=== PATIENT | female | born 1955 | race Caucasian/White ===

== ENCOUNTER 2018-08-24 09:40 | Outpatient (CLI) | payer BC, SELFPAY ==
[2018-08-24 13:28] LABS: TSH (W/Ref FT4) 3.92 uIU/mL (0.358-3.74)
[2018-08-24 13:44] LABS: FREE T4 1.13 ng/dL (0.76-1.46)
== END 2018-08-24 10:00 ==
PROVIDERS: PCP Family Medicine; Visit Provider Family Medicine
DX: E03.9 Hypothyroidism, unspecified (principal)
CPT/HCPCS: 36415; 84439; 84443

== ENCOUNTER 2018-11-03 02:43 | Outpatient (CLI) | payer BC, SELFPAY ==
[2018-11-03 11:03] LABS: Abs Immature Grans 0.01 k/cumm (0.0-0.09); Absolute Basophil Count 0.04 k/cumm (0.0-0.2); Absolute Eosinophil Count 0.31 k/cumm (0.0-0.7); Absolute Lymphocyte Count 1.35 k/cumm (1.2-3.4); Absolute Monocyte Count 0.39 k/cumm (0.11-0.7); Absolute Neutrophil Count 2.73 k/cumm (1.2-6.7); Basophils % 0.8; Eosinophils % 6.4; HCT 40.8 % (36.0-46.0); Immature Grans % 0.2; Mean Corp. HGB Concentration 31.9 g/dL (32.0-36.0); Mean Corpuscular Hemoglobin 30.3 pg (27.0-33.0); Mean Corpuscular Volume 95.1 fL (80-95); Mean Platelet Volume 10.3 fL (8.0-11.0); Monocytes % 8.1; Neutrophils % 56.5; Platelet Count 191 x1000/uL (130-400); RBC 4.29 m/cumm (4.00-5.20); White Blood Cell Count 4.83 k/cumm (4.4-10.8)
[2018-11-03 11:31] LABS: ALT 23 U/L (12-78); AST 14 U/L (15-37); Albumin 4.1 g/dL (3.4-5.0); Alkaline Phosphatase 71 U/L (46-116); Anion Gap 10.7 mmol/L (3-11); BUN 18 mg/dL (7-18); Bilirubin, Total 0.4 mg/dL (0.2-1.0); C-Reactive Protein 0.06 mg/dL (0.0-0.3); CO2 29.3 mmol/L (21.0-32.0); Calcium 8.9 mg/dL (8.5-10.1); Chloride 104 mmol/L (98-107); Glucose 77 mg/dL (70-100); Potassium 3.5 mmol/L (3.5-5.1); Sodium 144 mmol/L (136-145); Total Protein 6.9 g/dL (6.4-8.2)
[2018-11-03 11:40] LABS: TSH 2.51 uIU/mL (0.358-3.74)
== END 2018-11-03 03:03 ==
PROVIDERS: PCP Family Medicine; Visit Provider Internal Medicine Gastroenterology
DX: K51.519 Left sided colitis with unspecified complications (principal); E03.9 Hypothyroidism, unspecified
CPT/HCPCS: 36415; 80053; 84443; 85025; 86140

== ENCOUNTER 2018-11-04 13:44 | Outpatient (REF) | payer BC, SELFPAY ==
[2018-11-09 19:46] LABS: Calprotectin 28.5 mcg/g
== END 2018-11-04 14:04 ==
LOC: LBN 13:44
PROVIDERS: PCP Family Medicine; Visit Provider Internal Medicine Gastroenterology
DX: K51.519 Left sided colitis with unspecified complications (principal)
CPT/HCPCS: 83993

== ENCOUNTER 2019-02-27 10:30 | Outpatient (REF) | payer BC, SELFPAY ==
--- NOTE | 2019-02-27 10:00 | PAPFT_PTH ---
PATIENT: Tatyana Skelton LOC: [facility] U#:[id number] AGE/SX: 64/F ROOM: RE02/27/[address]: Bang Heath MD : 1955 BED: DIS: 02/27/2019 SPEC #: [id number] RECD: 02/27/19 13:11 STATUS: HILARIO REAyse #: [id number] TERESITA: 02/27/19 10:[address]: Bang Heath DEPT: [facility] Cytology RECD BY: Fidelina Solano Tissues: 1 - CX/ENDOCX FOR PAP SMEARS Procedures: PAP THIN PREP/UVM Screening Comments: [id number] (UNSATISFACTORY FOR EVALUATION)
== END 2019-02-27 10:50 ==
LOC: LBN 10:30
PROVIDERS: PCP Family Medicine; Visit Provider Family Medicine
DX: Z12.4 Encounter for screening for malignant neoplasm of cervix (principal)
CPT/HCPCS: 88142; 87624

== ENCOUNTER 2019-05-08 10:55 | Outpatient (REF) | payer BC, SELFPAY ==
--- NOTE | 2019-05-08 09:50 | PAPFT_PTH ---
PATIENT: Tatyana Skelton LOC: [facility] U#:[id number] AGE/SX: 64/F ROOM: RE05/08/[address]: Bang Heath MD : 1955 BED: DIS: 05/08/2019 SPEC #: [id number] RECD: 05/08/19 13:00 STATUS: HILARIO VICTOR #: [id number] TERESITA: 05/08/19 09:[address]: Bang Heath DEPT: [facility] Cytology RECD BY: Fidelina Solano Tissues: 1 - CX/ENDOCX FOR PAP SMEARS Procedures: PAP THIN PREP/UVM Screening Comments: [id number] (UNSATISFACTORY FOR EVALUATION)
== END 2019-05-08 11:15 ==
LOC: LBN 10:55
PROVIDERS: PCP Family Medicine; Visit Provider Family Medicine
DX: Z12.4 Encounter for screening for malignant neoplasm of cervix (principal); Z11.51 Encounter for screening for human papillomavirus (HPV)
CPT/HCPCS: 88142; 87624

== ENCOUNTER 2019-09-11 00:17 | Outpatient (CLI) | payer BC, SELFPAY ==
--- NOTE | 2019-09-11 06:56 | DI.NM_ITS ---
APPROVED REPORT Exam: Exercise Treadmill Patient Location: Out-Patient Stress Nurse: Kalyani Tom RN Indications: Episodes of nausea and weakness Medical History Medical History: Diabetic ??? Insulin, Obesity(hx of), HTN, Hyperlipidemia, Weakness Cardiac Medications: Atenolol, Losartan Allergies: Shellfish, lactose, lisinopril Cardiac Risk Factors: Hyperlipidemia, HTN, Diabetes (insulin), FHX of CAD Pretest Chest Pain Characteristics: No chest pain, episodes of nausea and weakness Exercise History: Physically active Stress Test Details Test: Exercise stress testing was performed using a Butch protocol. Nuclear Acquisition: Rest Tc-99m/Stress Tc-99m 1 day Rest Isotope: Tc-99m Tetrofosmin. Dose: 11 Date: 09/11/2019 Injection Time: 0940 Stress Isotope: Tc-99m Tetrofosmin. Dose: 34.5 Date: 09/11/2019 Injection Time: 1148 HR Resting HR: 63 bpm Max Heart Rate (APMHR): 157 bpm Target HR (85% APMHR): 133 bpm Max HR Achieved: 158 bpm % of APMHR: 100 Recovery HR: 87 bpm HR response to stress: Normal HR response to stress BP Resting BP: 130/80 mmHg Max BP: 180/84 mmHg Recovery BP: 130/78 mmHg BP response to stress: Normal blood pressure response to stress. ECG Resting ECG: Sinus Rhythm, Anterolateral [place] pattern- old Stress ECG: Sinus Tachycardia ST Change: Upsloping ST depression Maximum ST Deviation: 2 mm Arrhythmia: None Recovery ECG: Sinus Rhythm Recovery ST Change: Horizontal ST depression, Upsloping ST depression Recovery Arrhythmia: VPC's x2 only Clinical Reason for Termination: Maximal effort Exercise duration: 6.5 min sec Highest Stage Achieved: Stage 2: 2.5 mph at 12% grade. Exercise capacity: 8.43 METs Functional Capacity: Average Stress ECG Conclusion 1. The patient demonstrated reasonable exercise tolerance (8.4 METS) 2. This was a maximal effort stress test 3. There were [address] depressions in the inferior leads during exercise. These depressions resolved during recovery Test Summary supine 63 130/80 standing 76 130/90 1 3 10 1.7 119 4.6 150/96 99 2 3 12 2.5 146 7 158/92 98 3 0:54 14 3.4 158 10.2 97 1 min recovery 150 180/84 3 min recovery 87 160/80 6 min recovery 87 130/78 MPI Conclusion There is no evidence of ischemia on imaging portion of this exam. Wall motion was normal. There are discordant findings between EKG and imaging portion of this exam. The Tamayo Score (-4) estimates an annual cardiovascular mortality of 2% and a five year survival of 89 % Using the Tamayo Score there is an intermediate probability of angiographic coronary disease.
== END 2019-09-11 00:37 ==
PROVIDERS: PCP Family Medicine; Visit Provider Family Medicine
DX: R94.31 Abnormal electrocardiogram [ECG] [EKG] (principal); R11.0 Nausea; R53.1 Weakness; E78.5 Hyperlipidemia, unspecified; I10 Essential (primary) hypertension; E11.9 Type 2 diabetes mellitus without complications; Z79.4 Long term (current) use of insulin; Z82.49 Family history of ischemic heart disease and other diseases of the circulatory system
CPT/HCPCS: 78452; 93017

== ENCOUNTER 2019-10-03 13:55 | Outpatient (REF) | payer BC, SELFPAY ==
--- NOTE | 2019-10-03 11:30 | PAPFT_PTH ---
PATIENT: Tatyana Skelton LOC: [facility] U#:[id number] AGE/SX: 64/F ROOM: RE10/03/[address]: Liu Zarate MD : 1955 BED: DIS: 10/03/2019 SPEC #: [id number] RECD: 10/03/19 18:34 STATUS: HILARIO REAyse #: [id number] TERESITA: 10/03/19 11:[address]: Liu Zarate DEPT: [facility] Cytology RECD BY: Fidelina Solano ENTERED: 10/03/19 18:35 SP TYPE: PAPFT OTHR DR: Bang Heath MD Tissues: 1 - CX/ENDOCX FOR PAP SMEARS Procedures: PAP THIN PREP/UVM Screening HPV DNA PROBE Comments: [id number]
== END 2019-10-03 14:15 ==
LOC: LBN 13:55
PROVIDERS: PCP Family Medicine; Visit Provider Obstetrics & Gynecology
DX: Z12.4 Encounter for screening for malignant neoplasm of cervix (principal); Z11.51 Encounter for screening for human papillomavirus (HPV)
CPT/HCPCS: 88142; 87624

== ENCOUNTER 2019-10-13 09:03 | Outpatient (CLI) | payer BC, SELFPAY ==
[2019-10-13 11:46] LABS: TSH 0.33 uIU/mL (0.36-3.74)
== END 2019-10-13 09:23 ==
PROVIDERS: Internal Medicine Endocrinology, Diabetes & Metabolism; PCP Family Medicine; Visit Provider Family Medicine
DX: E03.8 Other specified hypothyroidism (principal); E06.3 Autoimmune thyroiditis
CPT/HCPCS: 36415; 84443

== ENCOUNTER 2019-10-24 11:55 | Outpatient (REF) | payer BC, SELFPAY | END 2019-10-24 12:15 | LOC: LBN 11:55 | PROVIDERS: PCP Family Medicine; Visit Provider Obstetrics & Gynecology | DX: N90.89 Other specified noninflammatory disorders of vulva and perineum (principal) | CPT/HCPCS: 87480; 87510; 87660 ==

== ENCOUNTER 2020-04-05 02:32 | Outpatient (CLI) | payer BC, SELFPAY ==
[2020-04-05 09:21] LABS: Hemoglobin A1C 6.2 % (3.8-5.6)
[2020-04-05 09:23] LABS: LDL CHOLESTEROL 47 mg/dL (<100); TSH 0.21 uIU/mL (0.36-3.74)
== END 2020-04-05 02:52 ==
PROVIDERS: PCP Family Medicine; Visit Provider Internal Medicine Endocrinology, Diabetes & Metabolism
DX: E10.9 Type 1 diabetes mellitus without complications (principal); E03.8 Other specified hypothyroidism; E06.3 Autoimmune thyroiditis
CPT/HCPCS: 36415; 83721; 83036; 84443

== ENCOUNTER 2020-11-13 00:45 | Outpatient (CLI) | payer BC, SELFPAY ==
--- NOTE | 2020-11-13 09:00 | DI.MAMMO_ITS ---
EXAM: MG MAMMO SCREENING CLINICAL HISTORY: screening. TECHNIQUE: Bilateral full field digital CC and MLO mammographic images were obtained with 3D tomosyn thesis and utilizing computer aided detection (CAD). COMPARISON: Prior mammograms dating back to 2011, the most recent being February 2018. FINDINGS: No new significant radiograph findings in left breast. In the right breast there is a subtle nodular density seen centrally located 5 centimetres in from th e nipple on 3D MLO imaging. Nodule measures approximately 8 x 6 millimeters. There are few tiny shayla rocalcifications in this region. There is no significant architectural distortion nor skin thickenin g-retraction. IMPRESSION: Moderately dense fibroglandular tissue. No radiographic evidence of malignancy in the left breast. Right breast nodule. Spot compression CC and MLO views recommended. Also ultrasound. BI-RADS Category 0 - Assessment Incomplete: Need additional imaging evaluation Breast Density - Category C - Heterogeneously dense Breast density Category C or D implies that the patient has dense breast tissue. Dense breast tissue can make it harder to find cancer on a mammogram. Dense breast tissue is also associated with an incr eased risk of breast cancer. This information about the result of the mammogram report was provided to the patient to raise their awareness. Use this report when you speak with the patient about their risks for breast cancer, which includes their family history. At that time, you may recommend additional screening tests (Ultrasoun d or MRI) as these tests may add significant information. A negative radiographic report should not delay biopsy if a dominant or clinically suspicious mass is present. Up to ten percent of cancers are not identified on mammography. A negative report may reinforce clinical impression. Adenosis and dense breasts may obscure an underlying neoplasm. False positive reports average 6 to 10%. Patient will receive a letter notifying them of these results.
== END 2020-11-13 01:05 ==
PROVIDERS: PCP Family Medicine; Visit Provider Nurse Practitioner Family
DX: Z12.31 Encounter for screening mammogram for malignant neoplasm of breast (principal); N63.10 Unspecified lump in the right breast, unspecified quadrant
CPT/HCPCS: 77063; 77067

== ENCOUNTER 2020-11-19 01:14 | Outpatient (CLI) | payer BC, SELFPAY ==
--- NOTE | 2020-11-19 | DI.US_ITS ---
EXAM: MG MAMMO SCREEN CALL BACK UNI and U/S breast RT limited CLINICAL HISTORY: F/U MAMMO, RT BREAST NODULE. TECHNIQUE: Craniocaudal and mediolateral oblique Full Field Digital Mammography views of the right b reast with Computer Aided Diagnosis followed by Tomosynthesis and right breast ultrasound. COMPARISON: Priors available for comparison. FINDINGS: Mammography/Tomosynthesis: Masses/Architectural Distortion: None seen. Microcalcifictions: No suspicious pleomorphic-type are seen. Skin Thickening/Nipple Retraction: None. Right breast US: Echotexture: Normal appearance of the glandular tissue. Shadowing: No suspicious foci. Cyst: None. Solid lesions: There is a hypoechoic mass seen at the 10 o'clock position of the right breast 5 cm fr om the nipple. The mass has ill-defined borders and internal vascularity is observed. The mass bernabe ures 1.1 cm AP 1.9 cm transverse. No definite posterior acoustic enhancement or shadowing is seen. Ductal dilation: None. IMPRESSION: 1. 1.1 x 1.9 cm right breast mass at the 10 o'clock position 5 cm from the nipple. 2. Given its appearance sonographically, biopsy is recommended. 3. The findings were discussed with the patient and the primary care provider team on the date of the examination. BI-RADS Category 4 - Suspicious Abnormality: Biopsy should be considered Breast Density - Category C - Heterogeneously dense The mammogram demonstrates the patient's breast tissue is dense. Dense breast tissue is very common a nd is not abnormal but dense breast tissue can make it harder to find cancer on a mammogram. Also, de nse breast tissue may increase their breast cancer risk. This information [facility] was provided to the patient to raise their awareness. Use this report when you speak wi th the patient about their risks for breast cancer, which includes their family history. At that time , you may recommend for more screening tests (Ultrasound or MRI) as they might be useful based on the ir risk. A negative radiographic report should not delay biopsy if a dominant or clinically suspicious mass is present. Up to ten percent of cancers are not identified on mammography. A negative report may reinforce clinical impression. Adenosis and dense breasts may obscure an underlying neoplasm. False positive reports average 6 to 10%. Patient will receive a letter notifying them of these results.
== END 2020-11-19 01:34 ==
PROVIDERS: PCP Family Medicine; Visit Provider Nurse Practitioner Family
DX: Z12.31 Encounter for screening mammogram for malignant neoplasm of breast (principal); R92.8 Other abnormal and inconclusive findings on diagnostic imaging of breast; N63.11 Unspecified lump in the right breast, upper outer quadrant
CPT/HCPCS: 76642; 77063; 77067

== ENCOUNTER 2020-11-27 01:47 | Outpatient (CLI) | payer BC, SELFPAY ==
--- NOTE | 2020-11-27 | DI.US_ITS ---
EXAM: US NEEDLE LOCAL BREAST WO RAD CLINICAL HISTORY: RT BREAST MASS, ULTRASOUND GUIDED CORE BREAST BIOPSY TECHNIQUE: Ultrasound performed using standard protocol. COMPARISON: US US BREAST RT LIMITED from 11/19/2020 FINDINGS: Ultrasound guidance was provided for biopsy right breast mass in the 10 o'clock position, reportedly performed by Dr. Gutierrez. Please see Dr. Gutierrez's procedure note. IMPRESSION: DATA REPOSITORY:
--- NOTE | 2020-11-27 10:35 | BREAST_PTH ---
PATIENT: Tatyana Skelton LOC: [facility] U#:[id number] AGE/SX: 65/F ROOM: RE11/27/[address]: Vidya Epps MD : 1955 BED: DIS: 11/27/2020 SPEC #: [id number] RECD: 11/27/20 12:14 STATUS: HILARIO REQ #: [id number] TERESITA: 11/27/20 10:[address]: Vidya Epps DEPT: Surgical Specimen RECD BY: Fidelina Solano ENTERED: 11/27/20 12:16 SP TYPE: Breast OTHR DR: Bang Heath MD Tissues: 1 - BREAST BX NEEDLE 2 - BREAST BX NEEDLE 3 - BREAST BX NEEDLE Procedures: GROSS AND MICRO LEVEL 4 IMMUNOPEROXIDASE STAIN Her-2 Dual MADIHA Comments: [id number]
--- NOTE | 2020-11-27 11:59 | W.PM.OP ---
Date of service: 11/27/20 Time of Service: 10:00 Operative Note Operative Note DATE OF PROCEDURE: 11/27/20 PRE-OP DIAGNOSIS: Abnormal right breast ultrasounds POST-OP DIAGNOSIS: same PROCEDURE: US guided needle core biopsy right breast and clip placement SURGEON: Yesy Gutierrez ANESTHESIA: local Indications: This 65 year old woman presented for routine screening mammogram. A possible density was seen in the right breast and confirmed on US at the 10:00 location, 5cm from the nipple, 1.9cm in size. The patient has not noted a mass. Procedure Description: I advised needle core biopsy of the right breast mass. The risks of infection, bleeding and potential need for further biopsy if the results are discordant were discussed. She agrees to proceed. The mass is visualized in the previously described location by the US tech. There is a palpable fullness here. The skin is cleaned with Chloraprep. The skin is infiltrated with 1% lidocaine and a small incision made medial to the lesion with an 11 blade. The 14 gauge needle core biopsy device is used to take several pieces of the mass which are place in formalin. This is done with US imaging showing the biopsy needle passing into the lesion. A localization clip is placed and shown to be within the lesion on US. She tolerated the procedure well. Keep covered with a dry dressing for a few days May shower and do activities as tolerated. Dr. Epps will contact with biopsy results in my absence.
== END 2020-11-27 02:07 ==
PROVIDERS: PCP Family Medicine; Visit Provider Surgery
DX: R93.89 Abnormal findings on diagnostic imaging of other specified body structures (principal); C50.411 Malignant neoplasm of upper-outer quadrant of right female breast
CPT/HCPCS: 19083; 88305; 76942; 88361; 88368

== ENCOUNTER 2020-12-13 04:12 | Outpatient (CLI) | payer BC, SELFPAY ==
[2020-12-13 11:26] LABS: ALT 25 U/L (14-59); AST 14 U/L (15-37); Albumin 4.1 g/dL (3.4-5.0); Alkaline Phosphatase 65 U/L (46-116); Bilirubin, Direct 0.13 mg/dL (0.00-0.20); Bilirubin, Total 0.5 mg/dL (0.2-1.0); Total Protein 6.7 g/dL (6.4-8.2)
== END 2020-12-13 04:32 ==
PROVIDERS: PCP Family Medicine; Visit Provider Surgery
DX: C50.911 Malignant neoplasm of unspecified site of right female breast (principal)
CPT/HCPCS: 36415; 80076

== ENCOUNTER 2020-12-13 04:23 | Outpatient (CLI) | payer BC, SELFPAY ==
--- NOTE | 2020-12-13 07:00 | DI.US_ITS ---
EXAM: US AXILLA RT CLINICAL HISTORY: r/o lymphadenopathy,LOBULAR BREAST CA,C50.919 TECHNIQUE: Ultrasound right axilla performed using standard protocol. COMPARISON: US US NEEDLE LOCAL BREAST WO RAD from 11/27/2020 FINDINGS: There are no pathologic appearing lymph nodes in the right axilla. We note 2 benign-appearing lymph nodes. The smaller lymph node measures 7 x 3 millimeters. The larger of the 2 lymph nodes measures 13 x 6 millimeters. Both exhibit normal fatty hilum and non thickened cortex. IMPRESSION: Two small benign-appearing lymph nodes in the right axilla. No significant adenopathy the right axil la evident. DATA REPOSITORY:
--- NOTE | 2020-12-13 07:00 | DI.RAD_ITS ---
EXAM: XR CHEST 2V PA LATERAL CLINICAL HISTORY: Breast cancer,C50.919. TECHNIQUE: 2D digital imaging was performed. COMPARISON: No exams were available for comparison FINDINGS: Heart size is normal. The mediastinum is not widened. Lungs are clear. No infiltrates nor pleural effusions. Some hyperinflation is noted. IMPRESSION: No acute pulmonary findings.Hyperinflation evident. Also thoracic scoliosis convex right. DATA REPOSITORY: RADIATION DOSE DELIVERED:
== END 2020-12-13 04:43 ==
PROVIDERS: PCP Family Medicine; Visit Provider Surgery
DX: C50.911 Malignant neoplasm of unspecified site of right female breast (principal)
CPT/HCPCS: 76642; 71046

== ENCOUNTER 2021-01-07 01:57 | Outpatient (CLI) | payer BC, SELFPAY ==
[2021-01-08 15:19] LABS: COVID-19 RT-PCR UVMMC Result Negative (Negative)
== END 2021-01-07 01:58 | disposition home or self-care (01) ==
LOC: LBO 01:58
PROVIDERS: PCP Family Medicine; Visit Provider Surgery
DX: Z20.822 Contact with and (suspected) exposure to COVID-19 (principal); Z01.818 Encounter for other preprocedural examination
CPT/HCPCS: U0003

== ENCOUNTER 2021-01-10 11:55 | Day surgery (SDC) | payer BC, SELFPAY ==
[2021-01-10 12:13] VITALS: BP 132/84; PULSE 77; RESP 16; TEMP 36.3; O2SAT 97
[2021-01-10] MEDS: Lactated Ringers 1,000 ML 80 ML IV (12:42)
--- NOTE | 2021-01-10 13:38 | W.PM.DSUDISC ---
Discharge Plan Disposition Patient Disposition: HOME Condition: Good Discharge Details Reason For Visit: Mediport placement Attending Provider: Vidya Epps Primary Care Provider: Bang Heath Home Meds and New Rx's Prescriptions: Continued atenolol 25 mg tablet 25 mg PO DAILY Qty: 90 RF: 4 Lantus Solostar U-100 Insulin 100 unit/mL (3 mL) insulin pen 18 unit subcut HS Qty: 3 RF: 11 losartan 50 mg tablet 25 mg PO DAILY 180 Days Qty: 90 RF: 3 lorazepam 0.5 mg tablet 0.5 mg PO QD-BID PRN (Reason: anxiety) Qty: 12 RF: 0 hydrocortisone [Anti-Itch (HC)] 1 % ointment 1 applic TP BID PRN (Reason: skin irritation) Qty: 30 RF: 2 estradiol [Estrace] 0.01 % (0.1 mg/gram) cream See Rx Instructions VG .COMPLEX Qty: 42.5 RF: 4 ascorbate calcium (vitamin C) 500 mg tablet 500 mg PO DAILY RF: 0 multivitamin 1 EACH tablet 1 ea PO DAILY RF: 0 sulfasalazine 500 MG tablet 2,000 mg PO BID RF: 0 calcium carbonate-vitamin D3 [Calcium 600 + D(3)] 1 EACH tablet 2 ea PO DAILY RF: 0 chromium picolinate 200 MCG capsule 200 mcg PO DAILY RF: 0 metformin 500 MG tablet 1,000 mg PO BID 90 Days Qty: 360 RF: 3 (DME) pen needle, diabetic 1 EACH needle 1 ea Miscellaneous TID Qty: 200 RF: 11 (DME) blood glucose control, normal 1 EACH solution 1 ea Miscellaneous DAILY 30 Days Qty: 1 RF: 11 (DME) pen needle, diabetic 1 EACH needle 1 ea Miscellaneous TID AND PRN Qty: 200 RF: 11 insulin lispro [Humalog KwikPen Insulin] 100 UNIT/1 ML insulin pen 2 - 3 units SQ tid with meals prn 90 Days Qty: 3 RF: 3 (DME) OneTouch Verio test strips strip See Dose Instructions .ROUTE .MEDSUPPLY Qty: 200 RF: 11 (DME) lancets [OneTouch Delica Lancets] 33 gauge misc See Dose Instructions .ROUTE .MEDSUPPLY Qty: 200 RF: 11 levothyroxine 175 mcg tablet 175 mcg PO DAILY Qty: 90 RF: 3 atorvastatin 40 mg tablet 40 mg PO DAILY Qty: 90 RF: 3 Discharge Instructions Instructions: How to Care for Your Implanted Venous Access Port (DC) Additional Instructions: Activity at Home after surgery: 1. tolerated Diet, Nutrition, & wound healin. As tolerated, high protein Pain Medications: 1. Tylenol 650 mg every 6 hours as needed and Ibuprofen 600 mg every 6 hours as needed For Constipation: 1. Take Milk of Magnesia or MiraLax as needed for constipation Other: 1. You may shower daily. Do not scrub the incisions 2. Do not soak the incisions for 1 week 3. You may alternate ice and heat as needed for pain and swelling Wound Care: 1. Keep the incisions clean and dry Please call our office if you develop: 1. Fevers >101.5 2. Nausea or Vomiting 3. Worsening pain 4. Redness and thick discharge from the wounds If after hours please call the Hospital at and ask to speak to the on-call surgeon Activity:: Activity as Tolerated Diet:: As Tolerated Discharge Orders Discharge Orders: Discharge Order (Routine); Ordered 01/10/21 Ordered By: Vidya Epps
--- NOTE | 2021-01-10 13:42 | ROE_ITS ---
Date of service: 01/10/21 Time of Service: 15:19 Operative Note Operative Note DATE OF PROCEDURE: 01/10/21 PRE-OP DIAGNOSIS: Right Breast cancer POST-OP DIAGNOSIS: same PROCEDURE: Left Subclavian vein Mediport placement SURGEON: Vidya Epps ANESTHESIA: MAC (ASA 3/ Gasper Fan CRNA) and local ESTIMATED BLOOD LOSS: 3 PATHOLOGY: none sent COMPLICATIONS: None Patient was transported to: same day Patient's condition: stable Implants: Power Port REF [id number] LOT [id number] 2022-07-29 Indications: Tatyana was seen by Hematology oncology and will be starting Jose- adjuvant chemotherapy. I have been asked to place a Mediport The procedure was explained and complications were reviewed. Risks, benefits and complications were reviewed. Complications include but are not limited to bleeding, infection, pneumothorax, injury to subclavian vein or artery as well as vena cava. Wound dehisence, malfunction and venous thrombosis. Questions were entertained and answered to her satisfaction and she wished to proceed. NO guarantees were given or implied. Proceed with Mediport placement Procedure Description: After informed consent was obtained the patient was taken to the operating room and placed in supine position. The patient was placed under deep sedation and once comfortable the right and left chest were prepped and draped in a sterile surgical fashion. At this point a timeout was done. The patient's name, date of , procedure to be done, potential complications, DVT prophylaxis, antibiotic given were all reviewed. Fire risk was assessed. Next 0.5% Marcaine with epi was injected around the clavicle on the left side. A power port kit was opened and using the large 18-gauge needle the subclavian vein was found without difficulty and venous blood was easily aspirated. The syringe was removed and the guidewire was placed without any difficulty into the subclavian vein. The needle was removed. Fluoroscopy was then done which confirmed the placement of the guidewire. A small incision was made in the skin with the guidewire entered. Local was injected into the skin about 2 inches below the clavicle. An incision was made with a 15 blade and a pocket was created with cautery. Using the tunneler the catheter was tunneled from the newly created pocket to the guidewire. The dilator and sheath were then placed over the guidewire into the subclavian vein. The dilator and guidewire were removed. The catheter was then advanced through the sheath into the subclavian vein. While holding the catheter in place at the skin the sheath was removed. Fluoroscopy was then used again and the catheter was noted to be within the atrium and so it was pulled up until it was just above the atrium. The catheter was then cut to the right length and attached to the port. The port was placed into the pocket and fit snugly. The catheter seemed too long and was curling under the skin. The catheter was cut a little more. I was afraid that the catheter had been pulled out too far and fluoro was done again. The catheter was still in place but slightly higher. The port was flushed with normal saline. The port was then flushed with 5 cc of heparin. The skin was closed using 4-0 Vicryl. The skin was cleaned and dried and skin affix was applied to the port site as well as to the small stab incision underneath the clavicle. The patient was woken up and taken back to same day surgery in stable condition. Sponge, instrument, and needle counts were correct at the end of the case. A stat chest x-ray was ordered and done in same-day surgery. The report was panding at this time.
--- NOTE | 2021-01-10 13:45 | DI.RAD_ITS ---
EXAM: RF LINE PLACEMENT OR CLINICAL HISTORY: BREAST CANCER/LINE PLACEMENT. TECHNIQUE: 2D and realtime digital imaging was performed. COMPARISON: No exams were available for comparison FINDINGS: Fluoroscopy was provided for Dr. Epps for guidance with placing a central line. A hard copy image shows a central line placed via the left subclavian. The tip projects in the expected location of t he superior vena cava. The visualized portions of the left upper lobe appear clear. Please see procedure note for details. RADIATION DOSE DELIVERED: Fluoro time: 36.2 Seconds 2.64mGy
[2021-01-10] MEDS: ceFAZolin 2 GM/50 ML BAG IVPB (14:11)
[2021-01-10] MEDS: Bupivacaine 0.5% Pres-Free 30 ML VIAL (14:27)
[2021-01-10] MEDS: EPINEPHrine 1 MG/ML AMP pres-free (14:27)
[2021-01-10] MEDS: Normal Saline 50 ML 10 ML (14:35)
[2021-01-10] MEDS: Heparin 500 UNITS/5 ML SYRINGE (14:35)
[2021-01-10 15:14] VITALS: BP 73/44; PULSE 62; RESP 25; O2SAT 95
--- NOTE | 2021-01-10 15:15 | DI.RAD_ITS ---
EXAM: XR PORTABLE CHEST AP POST LINE CLINICAL HISTORY: post Mediport placement TECHNIQUE: 2D digital imaging was performed. COMPARISON: CR XR CHEST 2V PA LATERAL from 12/13/2020 RF LINE PLACEMENT OR from 01/10/2021 RF LINE PLACEMENT OR from 01/10/2021 FINDINGS: A port has been placed via left subclavian. The tip is not well seen due is, obscured by overlying s tructures. A projects in the expected location of the superior vena cava. Heart size is normal. Th ere is no pneumothorax. There are mild chronic fibrotic changes. Degenerative changes and scoliosis are noted in the spine. IMPRESSION: Status post port placement. No acute pulmonary findings. DATA REPOSITORY: RADIATION DOSE DELIVERED:
[2021-01-10 15:34] VITALS: BP 97/51; PULSE 68; RESP 20; TEMP 36.5; O2SAT 95
== END 2021-01-10 16:22 | disposition home or self-care (01) ==
PROVIDERS: PCP Family Medicine; Visit Provider Surgery
PROC: (CPT 36561; principal; 2021-01-10 13:00)
DX: C50.911 Malignant neoplasm of unspecified site of right female breast (principal); Z45.2 Encounter for adjustment and management of vascular access device
CPT/HCPCS: 36561; 71045; 77001; C1788; J0171; J0690; J2250; J2405

== ENCOUNTER 2021-01-16 02:19 | Outpatient (RCR) | payer BC, SELFPAY ==
[2021-01-16] MEDS: Normal Saline Flush 10 ML SYR IVP (07:50)
[2021-01-16 07:52] LABS: Absolute Basophil Count 0.03 10^3/uL (0.0-0.2); Absolute Eosinophil Count 0.13 10^3/uL (0.0-0.7); Absolute Monocyte Count 0.43 10^3/uL (0.1-0.8); Absolute Neutrophil Count 2.72 10^3/uL (1.2-6.7); Basophils % 0.7; Eosinophils % 2.9; HCT 37.8 % (36.0-46.0); HGB 12.1 g/dL (11.2-15.7); Lymphocytes % 26.6; MCH 30.1 pg (27.0-33.0); MPV 9.7 fL (8.0-11.0); Monocytes % 9.5; Neutrophils % 60.3; Nucleated RBC 0 %; Platelet Count 169 10^3/uL (130-400); RBC 4.02 10^6/uL (3.93-5.22); RDW 12.5 % (11.7-14.6); RDW-SD 43.6 fL; WBC 4.51 10^3/uL (4.4-10.8)
[2021-01-16 08:04] LABS: ALT 27 U/L (14-59); AST 17 U/L (15-37); Albumin 3.8 g/dL (3.4-5.0); Alkaline Phosphatase 60 U/L (46-116); Anion Gap 9.1 mmol/L (3-11); BUN 11 mg/dL (7-18); Bilirubin, Total 0.4 mg/dL (0.2-1.0); CO2 27.9 mmol/L (21.0-32.0); CREATININE 0.7 mg/dL (0.55-1.02); Calcium 8.7 mg/dL (8.5-10.1); Chloride 104 mmol/L (98-107); Glucose 106 mg/dL (74-106); Potassium 3.6 mmol/L (3.5-5.1); Sodium 141 mmol/L (136-145); Total Protein 6.7 g/dL (6.4-8.2)
== END 2021-01-26 23:59 | disposition home or self-care (01) ==
LOC: INF 02:19
PROVIDERS: PCP Family Medicine; Visit Provider Internal Medicine Hematology & Oncology
DX: C50.411 Malignant neoplasm of upper-outer quadrant of right female breast (principal); Z17.1 Estrogen receptor negative status [ER-]; Z45.2 Encounter for adjustment and management of vascular access device
CPT/HCPCS: 36591; 80053; 85025

== ENCOUNTER 2021-02-13 02:06 | Outpatient (RCR) | payer MEDICARE, SELFPAY ==
[2021-01-30] MEDS: Normal Saline Flush 10 ML SYR IVP (10:03)
[2021-01-30 10:18] LABS: Abs Immature Grans 0.15 10^3/uL (0.0-0.06); Absolute Basophil Count 0.06 10^3/uL (0.0-0.2); Absolute Eosinophil Count 0.05 10^3/uL (0.0-0.7); Absolute Lymphocyte Count 1.43 10^3/uL (1.2-3.4); Absolute Neutrophil Count 4.72 10^3/uL (1.2-6.7); Basophils % 0.8; Eosinophils % 0.7; HCT 36.7 % (36.0-46.0); Immature Grans % 2.1; Lymphocytes % 20.1; MCH 31.1 pg (27.0-33.0); MCHC 32.7 % (32.0-36.0); MCV 95.1 fL (80-95); MPV 9.8 fL (8.0-11.0); Monocytes % 9.8; Neutrophils % 66.5; Nucleated RBC 0 %; Platelet Count 201 10^3/uL (130-400); RBC 3.86 10^6/uL (3.93-5.22); RDW 13.9 % (11.7-14.6); RDW-SD 45.3 fL; WBC 7.11 10^3/uL (4.4-10.8)
[2021-01-30 10:30] LABS: ALT 39 U/L (14-59); AST 18 U/L (15-37); Albumin 3.8 g/dL (3.4-5.0); Alkaline Phosphatase 85 U/L (46-116); Anion Gap 8.7 mmol/L (3-11); BUN 12 mg/dL (7-18); Bilirubin, Total 0.3 mg/dL (0.2-1.0); CO2 25.3 mmol/L (21.0-32.0); CREATININE 0.7 mg/dL (0.55-1.02); Calcium 8.6 mg/dL (8.5-10.1); Chloride 105 mmol/L (98-107); Glucose 110 mg/dL (74-106); Sodium 139 mmol/L (136-145); Total Protein 6.9 g/dL (6.4-8.2)
[2021-02-13] MEDS: Normal Saline Flush 10 ML SYR IVP (10:07)
[2021-02-13 10:25] LABS: Abs Immature Grans 0.17 10^3/uL (0.0-0.06); Absolute Basophil Count 0.05 10^3/uL (0.0-0.2); Absolute Eosinophil Count 0.01 10^3/uL (0.0-0.7); Absolute Lymphocyte Count 1.13 10^3/uL (1.2-3.4); Absolute Monocyte Count 0.82 10^3/uL (0.1-0.8); Absolute Neutrophil Count 5.06 10^3/uL (1.2-6.7); Basophils % 0.7; Eosinophils % 0.1; HCT 35.3 % (36.0-46.0); HGB 11.5 g/dL (11.2-15.7); Immature Grans % 2.3; Lymphocytes % 15.6; MCH 31.3 pg (27.0-33.0); MCHC 32.6 % (32.0-36.0); MCV 95.9 fL (80-95); Monocytes % 11.3; Nucleated RBC 0 %; Platelet Count 187 10^3/uL (130-400); RBC 3.68 10^6/uL (3.93-5.22); RDW 15.7 % (11.7-14.6); RDW-SD 50.7 fL; WBC 7.24 10^3/uL (4.4-10.8)
[2021-02-13 10:41] LABS: ALT 34 U/L (14-59); AST 14 U/L (15-37); Albumin 3.9 g/dL (3.4-5.0); Alkaline Phosphatase 87 U/L (46-116); Anion Gap 8.4 mmol/L (3-11); BUN 11 mg/dL (7-18); Bilirubin, Total 0.4 mg/dL (0.2-1.0); CO2 26.6 mmol/L (21.0-32.0); CREATININE 0.7 mg/dL (0.55-1.02); Calcium 9.2 mg/dL (8.5-10.1); Chloride 104 mmol/L (98-107); Glucose 169 mg/dL (74-106); Potassium 3.7 mmol/L (3.5-5.1); Sodium 139 mmol/L (136-145); Total Protein 6.9 g/dL (6.4-8.2)
== END 2021-02-26 23:59 | disposition home or self-care (01) ==
LOC: INF 02:06
PROVIDERS: PCP Family Medicine; Visit Provider Internal Medicine Hematology & Oncology
DX: C50.411 Malignant neoplasm of upper-outer quadrant of right female breast (principal); Z45.2 Encounter for adjustment and management of vascular access device; Z17.1 Estrogen receptor negative status [ER-]
CPT/HCPCS: 36591; 80053; 85025

== ENCOUNTER 2021-03-05 22:17 | Outpatient (REF) | payer MEDICARE, SELFPAY ==
[2021-03-05 22:53] LABS: Calculated LDL 32 mg/dL (<100); Cholesterol 135 mg/dL (<200); HDL Cholesterol 88 mg/dL (40-60); TSH (W/Ref FT4) 0.41 uIU/mL (0.36-3.74); Triglyceride 78 mg/dL (<150)
== END 2021-03-05 22:18 | disposition home or self-care (01) ==
LOC: LBN 22:17
PROVIDERS: PCP Family Medicine; Visit Provider Nurse Practitioner Family
DX: E78.5 Hyperlipidemia, unspecified (principal); E11.9 Type 2 diabetes mellitus without complications; E03.9 Hypothyroidism, unspecified
CPT/HCPCS: 80061; 82043; 82570; 84443

== ENCOUNTER 2021-03-25 03:16 | Outpatient (CLI) | payer MEDICARE, SELFPAY ==
[2021-03-25 14:24] LABS: Hemoglobin A1C 4.8 % (<5.7)
== END 2021-03-25 03:17 | disposition home or self-care (01) ==
LOC: LOS 03:17
PROVIDERS: PCP Family Medicine; Visit Provider Nurse Practitioner Family
DX: E11.9 Type 2 diabetes mellitus without complications (principal)
CPT/HCPCS: 36415; 83036

== ENCOUNTER 2021-03-27 01:45 | Outpatient (RCR) | payer MEDICARE, SELFPAY ==
[2021-02-27 10:18] LABS: Abs Immature Grans 0.31 10^3/uL (0.0-0.06); Absolute Basophil Count 0.05 10^3/uL (0.0-0.2); Absolute Eosinophil Count 0.01 10^3/uL (0.0-0.7); Absolute Lymphocyte Count 0.89 10^3/uL (1.2-3.4); Absolute Monocyte Count 0.74 10^3/uL (0.1-0.8); Absolute Neutrophil Count 5.14 10^3/uL (1.2-6.7); Basophils % 0.7; Eosinophils % 0.1; HCT 33.3 % (36.0-46.0); HGB 10.8 g/dL (11.2-15.7); Immature Grans % 4.3; Lymphocytes % 12.5; MCH 31.8 pg (27.0-33.0); MCHC 32.4 % (32.0-36.0); MCV 97.9 fL (80-95); MPV 9.9 fL (8.0-11.0); Monocytes % 10.4; Nucleated RBC 0 %; Platelet Count 193 10^3/uL (130-400); RDW 17.7 % (11.7-14.6); RDW-SD 61.8 fL; WBC 7.14 10^3/uL (4.4-10.8)
[2021-02-27] MEDS: Normal Saline Flush 10 ML SYR IVP (10:22)
[2021-02-27 10:40] LABS: ALT 26 U/L (14-59); AST 14 U/L (15-37); Albumin 3.8 g/dL (3.4-5.0); Alkaline Phosphatase 87 U/L (46-116); Anion Gap 9.8 mmol/L (3-11); BUN 10 mg/dL (7-18); Bilirubin, Total 0.4 mg/dL (0.2-1.0); CO2 27.2 mmol/L (21.0-32.0); CREATININE 0.7 mg/dL (0.55-1.02); Calcium 8.6 mg/dL (8.5-10.1); Chloride 104 mmol/L (98-107); Glucose 175 mg/dL (74-106); Potassium 3.6 mmol/L (3.5-5.1); Sodium 141 mmol/L (136-145); Total Protein 6.8 g/dL (6.4-8.2)
[2021-03-13 10:11] LABS: Abs Immature Grans 0.22 10^3/uL (0.0-0.06); Absolute Basophil Count 0.03 10^3/uL (0.0-0.2); Absolute Eosinophil Count 0.01 10^3/uL (0.0-0.7); Absolute Lymphocyte Count 0.68 10^3/uL (1.2-3.4); Absolute Monocyte Count 0.64 10^3/uL (0.1-0.8); Absolute Neutrophil Count 3.47 10^3/uL (1.2-6.7); Basophils % 0.6; Eosinophils % 0.2; HGB 9.6 g/dL (11.2-15.7); Immature Grans % 4.4; Lymphocytes % 13.5; MCH 32.8 pg (27.0-33.0); MCV 102.4 fL (80-95); MPV 10.4 fL (8.0-11.0); Monocytes % 12.7; Neutrophils % 68.6; Nucleated RBC 0 %; Platelet Count 150 10^3/uL (130-400); RBC 2.93 10^6/uL (3.93-5.22); RDW 18.7 % (11.7-14.6); WBC 5.05 10^3/uL (4.4-10.8)
[2021-03-13 10:22] LABS: ALT 26 U/L (14-59); AST 16 U/L (15-37); Albumin 3.9 g/dL (3.4-5.0); Alkaline Phosphatase 82 U/L (46-116); Anion Gap 9.4 mmol/L (3-11); BUN 9 mg/dL (7-18); Bilirubin, Total 0.4 mg/dL (0.2-1.0); CO2 27.6 mmol/L (21.0-32.0); CREATININE 0.7 mg/dL (0.55-1.02); Calcium 8.5 mg/dL (8.5-10.1); Chloride 107 mmol/L (98-107); Glucose 118 mg/dL (74-106); Potassium 3.6 mmol/L (3.5-5.1); Sodium 144 mmol/L (136-145); Total Protein 6.6 g/dL (6.4-8.2)
[2021-03-13] MEDS: Normal Saline Flush 10 ML SYR IVP (10:48)
[2021-03-27] MEDS: Normal Saline Flush 10 ML SYR IVP (10:06)
[2021-03-27 10:14] LABS: Abs Immature Grans 0.11 10^3/uL (0.0-0.06); Absolute Basophil Count 0.04 10^3/uL (0.0-0.2); Absolute Eosinophil Count 0.02 10^3/uL (0.0-0.7); Absolute Lymphocyte Count 1.01 10^3/uL (1.2-3.4); Absolute Monocyte Count 0.68 10^3/uL (0.1-0.8); Absolute Neutrophil Count 6.37 10^3/uL (1.2-6.7); Basophils % 0.5; Eosinophils % 0.2; HCT 33.6 % (36.0-46.0); HGB 10.9 g/dL (11.2-15.7); Immature Grans % 1.3; Lymphocytes % 12.3; MCH 34.3 pg (27.0-33.0); MCHC 32.4 % (32.0-36.0); MCV 105.7 fL (80-95); MPV 10.2 fL (8.0-11.0); Monocytes % 8.3; Neutrophils % 77.4; Nucleated RBC 0 %; Platelet Count 210 10^3/uL (130-400); RBC 3.18 10^6/uL (3.93-5.22); RDW 16.6 % (11.7-14.6); RDW-SD 65.1 fL; WBC 8.23 10^3/uL (4.4-10.8)
[2021-03-27 10:29] LABS: ALT 45 U/L (14-59); AST 13 U/L (15-37); Alkaline Phosphatase 105 U/L (46-116); Anion Gap 7.7 mmol/L (3-11); BUN 10 mg/dL (7-18); Bilirubin, Total 0.4 mg/dL (0.2-1.0); CO2 27.3 mmol/L (21.0-32.0); CREATININE 0.7 mg/dL (0.55-1.02); Calcium 8.9 mg/dL (8.5-10.1); Chloride 105 mmol/L (98-107); Glucose 188 mg/dL (74-106); Potassium 4.1 mmol/L (3.5-5.1); Sodium 140 mmol/L (136-145)
== END 2021-03-28 23:59 | disposition home or self-care (01) ==
LOC: INF 01:45
PROVIDERS: PCP Family Medicine; Visit Provider Internal Medicine Hematology & Oncology
DX: C50.411 Malignant neoplasm of upper-outer quadrant of right female breast (principal); Z17.1 Estrogen receptor negative status [ER-]; Z45.2 Encounter for adjustment and management of vascular access device
CPT/HCPCS: 36591; 80053; 85025

== ENCOUNTER 2021-04-24 02:10 | Outpatient (RCR) | payer MEDICARE, SELFPAY ==
[2021-04-10] MEDS: Normal Saline Flush 10 ML SYR IVP (08:19)
[2021-04-10 08:22] LABS: Abs Immature Grans 0.05 10^3/uL (0.0-0.06); Absolute Basophil Count 0.03 10^3/uL (0.0-0.2); Absolute Eosinophil Count 0.18 10^3/uL (0.0-0.7); Absolute Lymphocyte Count 0.75 10^3/uL (1.2-3.4); Absolute Monocyte Count 0.52 10^3/uL (0.1-0.8); Absolute Neutrophil Count 5.84 10^3/uL (1.2-6.7); Basophils % 0.4; Eosinophils % 2.4; HCT 33.4 % (36.0-46.0); HGB 10.5 g/dL (11.2-15.7); Immature Grans % 0.7; Lymphocytes % 10.2; MCH 33.9 pg (27.0-33.0); MCHC 31.4 % (32.0-36.0); MCV 107.7 fL (80-95); MPV 10.1 fL (8.0-11.0); Monocytes % 7.1; Neutrophils % 79.2; Nucleated RBC 0 %; Platelet Count 186 10^3/uL (130-400); RDW 14.1 % (11.7-14.6); RDW-SD 56.3 fL; WBC 7.37 10^3/uL (4.4-10.8)
[2021-04-10 08:35] LABS: ALT 32 U/L (14-59); AST 13 U/L (15-37); Albumin 3.8 g/dL (3.4-5.0); Alkaline Phosphatase 104 U/L (46-116); Anion Gap 6.5 mmol/L (3-11); BUN 10 mg/dL (7-18); Bilirubin, Total 0.3 mg/dL (0.2-1.0); CO2 28.5 mmol/L (21.0-32.0); CREATININE 0.7 mg/dL (0.55-1.02); Calcium 8.8 mg/dL (8.5-10.1); Chloride 107 mmol/L (98-107); Glucose 108 mg/dL (74-106); Potassium 3.6 mmol/L (3.5-5.1); Sodium 142 mmol/L (136-145); Total Protein 6.6 g/dL (6.4-8.2)
[2021-04-24] MEDS: Normal Saline Flush 10 ML SYR IVP (10:01)
[2021-04-24 10:14] LABS: Abs Immature Grans 0.05 10^3/uL (0.0-0.06); Absolute Basophil Count 0.03 10^3/uL (0.0-0.2); Absolute Eosinophil Count 0.09 10^3/uL (0.0-0.7); Absolute Lymphocyte Count 0.72 10^3/uL (1.2-3.4); Absolute Monocyte Count 0.52 10^3/uL (0.1-0.8); Absolute Neutrophil Count 7.15 10^3/uL (1.2-6.7); Basophils % 0.4; Eosinophils % 1.1; HCT 34.3 % (36.0-46.0); HGB 11.2 g/dL (11.2-15.7); Immature Grans % 0.6; Lymphocytes % 8.4; MCH 33.2 pg (27.0-33.0); MCHC 32.7 % (32.0-36.0); MCV 101.8 fL (80-95); MPV 10.2 fL (8.0-11.0); Monocytes % 6.1; Neutrophils % 83.4; Nucleated RBC 0 %; Platelet Count 200 10^3/uL (130-400); RBC 3.37 10^6/uL (3.93-5.22); RDW 13.5 % (11.7-14.6); RDW-SD 51.2 fL; WBC 8.56 10^3/uL (4.4-10.8)
[2021-04-24 10:24] LABS: ALT 29 U/L (14-59); AST 16 U/L (15-37); Albumin 3.9 g/dL (3.4-5.0); Alkaline Phosphatase 107 U/L (46-116); Anion Gap 7.8 mmol/L (3-11); BUN 13 mg/dL (7-18); Bilirubin, Total 0.4 mg/dL (0.2-1.0); CO2 27.2 mmol/L (21.0-32.0); CREATININE 0.7 mg/dL (0.55-1.02); Calcium 8.7 mg/dL (8.5-10.1); Chloride 106 mmol/L (98-107); Glucose 179 mg/dL (74-106); Potassium 3.8 mmol/L (3.5-5.1); Sodium 141 mmol/L (136-145); Total Protein 6.7 g/dL (6.4-8.2)
== END 2021-04-28 23:59 | disposition home or self-care (01) ==
LOC: INF 02:10
PROVIDERS: PCP Family Medicine; Visit Provider Internal Medicine Hematology & Oncology
DX: C50.411 Malignant neoplasm of upper-outer quadrant of right female breast (principal); Z17.1 Estrogen receptor negative status [ER-]; Z45.2 Encounter for adjustment and management of vascular access device
CPT/HCPCS: 36591; 80053; 85025

== ENCOUNTER 2021-07-31 03:33 | Outpatient (CLI) | payer MEDICARE, SELFPAY ==
[2021-07-31 08:40] LABS: Abs Immature Grans 0.01 10^3/uL (0.0-0.06); Absolute Basophil Count 0.02 10^3/uL (0.0-0.2); Absolute Eosinophil Count 0.21 10^3/uL (0.0-0.7); Absolute Lymphocyte Count 0.83 10^3/uL (1.2-3.4); Absolute Monocyte Count 0.39 10^3/uL (0.1-0.8); Absolute Neutrophil Count 2.31 10^3/uL (1.2-6.7); Basophils % 0.5; Eosinophils % 5.6; HCT 37.6 % (36.0-46.0); HGB 11.9 g/dL (11.2-15.7); Immature Grans % 0.3; MCH 28.7 pg (27.0-33.0); MCHC 31.6 % (32.0-36.0); MCV 90.8 fL (80-95); Monocytes % 10.3; Neutrophils % 61.3; Nucleated RBC 0 %; Platelet Count 140 10^3/uL (130-400); RBC 4.14 10^6/uL (3.93-5.22); RDW 15.8 % (11.7-14.6); RDW-SD 45.4 fL; WBC 3.77 10^3/uL (4.4-10.8)
[2021-07-31 08:55] LABS: ALT 29 U/L (14-59); AST 20 U/L (15-37); Alkaline Phosphatase 75 U/L (46-116); Anion Gap 12.6 mmol/L (3-11); BUN 11 mg/dL (7-18); Bilirubin, Total 0.3 mg/dL (0.2-1.0); CO2 27.4 mmol/L (21.0-32.0); CREATININE 0.8 mg/dL (0.55-1.02); Calcium 8.9 mg/dL (8.5-10.1); Chloride 105 mmol/L (98-107); Glucose 128 mg/dL (74-106); Potassium 3.4 mmol/L (3.5-5.1); Sodium 145 mmol/L (136-145); Total Protein 6.9 g/dL (6.4-8.2)
== END 2021-07-31 03:34 | disposition home or self-care (01) ==
PROVIDERS: Internal Medicine Hematology & Oncology; PCP Family Medicine; Visit Provider Internal Medicine Hematology & Oncology
DX: C50.411 Malignant neoplasm of upper-outer quadrant of right female breast (principal); Z17.1 Estrogen receptor negative status [ER-]
CPT/HCPCS: 36415; 80053; 85025

== ENCOUNTER 2021-08-21 01:42 | Outpatient (CLI) | payer MEDICARE, SELFPAY ==
[2021-08-21 10:07] LABS: Abs Immature Grans 0.01 10^3/uL (0.0-0.06); Absolute Basophil Count 0.02 10^3/uL (0.0-0.2); Absolute Eosinophil Count 0.08 10^3/uL (0.0-0.7); Absolute Lymphocyte Count 0.81 10^3/uL (1.2-3.4); Absolute Neutrophil Count 1.87 10^3/uL (1.2-6.7); Basophils % 0.6; Eosinophils % 2.5; HCT 36.5 % (36.0-46.0); HGB 11.9 g/dL (11.2-15.7); Immature Grans % 0.3; Lymphocytes % 25.4; MCH 29.9 pg (27.0-33.0); MCHC 32.6 % (32.0-36.0); MCV 91.7 fL (80-95); MPV 8.6 fL (8.0-11.0); Monocytes % 12.5; Neutrophils % 58.7; Nucleated RBC 0 %; Platelet Count 132 10^3/uL (130-400); RBC 3.98 10^6/uL (3.93-5.22); RDW-SD 57.1 fL; WBC 3.19 10^3/uL (4.4-10.8)
[2021-08-21 10:29] LABS: ALT 33 U/L (14-59); AST 26 U/L (15-37); Albumin 4.3 g/dL (3.4-5.0); Alkaline Phosphatase 73 U/L (46-116); BUN 11 mg/dL (7-18); Bilirubin, Total 0.6 mg/dL (0.2-1.0); CREATININE 0.7 mg/dL (0.55-1.02); Chloride 103 mmol/L (98-107); Glucose 157 mg/dL (74-106); Potassium 3.3 mmol/L (3.5-5.1); Sodium 140 mmol/L (136-145); Total Protein 7.3 g/dL (6.4-8.2)
== END 2021-08-21 01:43 | disposition home or self-care (01) ==
LOC: LBO 01:42
PROVIDERS: PCP Family Medicine; Visit Provider Internal Medicine Hematology & Oncology
DX: C50.411 Malignant neoplasm of upper-outer quadrant of right female breast (principal); Z17.1 Estrogen receptor negative status [ER-]
CPT/HCPCS: 36415; 80053; 85025

== ENCOUNTER 2021-09-11 02:36 | Outpatient (CLI) | payer MEDICARE, SELFPAY ==
[2021-09-11 10:26] LABS: Abs Immature Grans 0.02 10^3/uL (0.0-0.06); Absolute Basophil Count 0.01 10^3/uL (0.0-0.2); Absolute Eosinophil Count 0.11 10^3/uL (0.0-0.7); Absolute Monocyte Count 0.51 10^3/uL (0.1-0.8); Absolute Neutrophil Count 3.02 10^3/uL (1.2-6.7); Basophils % 0.2; Eosinophils % 2.5; HCT 32.8 % (36.0-46.0); Immature Grans % 0.5; MCH 33.1 pg (27.0-33.0); MCHC 33.5 % (32.0-36.0); MCV 98.8 fL (80-95); MPV 8.7 fL (8.0-11.0); Monocytes % 11.7; Neutrophils % 69.1; Nucleated RBC 0 %; Platelet Count 139 10^3/uL (130-400); RBC 3.32 10^6/uL (3.93-5.22); RDW 23.4 % (11.7-14.6); RDW-SD 83.4 fL; WBC 4.37 10^3/uL (4.4-10.8)
[2021-09-11 10:35] LABS: Anisocytosis 2+; Diff Comment RBC Morph Reviewed
[2021-09-11 10:39] LABS: ALT 40 U/L (14-59); AST 30 U/L (15-37); Albumin 4.3 g/dL (3.4-5.0); Alkaline Phosphatase 85 U/L (46-116); BUN 14 mg/dL (7-18); Bilirubin, Total 0.7 mg/dL (0.2-1.0); CREATININE 0.8 mg/dL (0.55-1.02); Calcium 9.3 mg/dL (8.5-10.1); Chloride 103 mmol/L (98-107); Glucose 201 mg/dL (74-106); Potassium 3.6 mmol/L (3.5-5.1); Sodium 141 mmol/L (136-145); Total Protein 7.2 g/dL (6.4-8.2)
== END 2021-09-11 02:37 | disposition home or self-care (01) ==
LOC: LBO 02:36
PROVIDERS: PCP Family Medicine; Visit Provider Internal Medicine Hematology & Oncology
DX: C50.411 Malignant neoplasm of upper-outer quadrant of right female breast (principal); Z17.1 Estrogen receptor negative status [ER-]
CPT/HCPCS: 36415; 80053; 85025

== ENCOUNTER 2021-10-20 03:15 | Outpatient (CLI) | payer MEDICARE, SELFPAY ==
[2021-10-20 09:23] LABS: Abs Immature Grans 0.02 10^3/uL (0.0-0.06); Absolute Basophil Count 0.02 10^3/uL (0.0-0.2); Absolute Eosinophil Count 0.11 10^3/uL (0.0-0.7); Absolute Lymphocyte Count 1.11 10^3/uL (1.2-3.4); Absolute Monocyte Count 0.53 10^3/uL (0.1-0.8); Absolute Neutrophil Count 2.56 10^3/uL (1.2-6.7); Basophils % 0.5; Eosinophils % 2.5; HCT 32.4 % (36.0-46.0); HGB 11.1 g/dL (11.2-15.7); Immature Grans % 0.5; Lymphocytes % 25.5; MCH 36.4 pg (27.0-33.0); MCHC 34.3 % (32.0-36.0); MCV 106.2 fL (80-95); MPV 9.4 fL (8.0-11.0); Monocytes % 12.2; Neutrophils % 58.8; Nucleated RBC 1 %; Platelet Count 141 10^3/uL (130-400); RBC 3.05 10^6/uL (3.93-5.22); RDW 16.7 % (11.7-14.6); RDW-SD 63.7 fL; WBC 4.35 10^3/uL (4.4-10.8)
[2021-10-20 09:36] LABS: ALT 38 U/L (14-59); AST 29 U/L (15-37); Albumin 4.2 g/dL (3.4-5.0); Alkaline Phosphatase 73 U/L (46-116); Anion Gap 6.6 mmol/L (3-11); BUN 12 mg/dL (7-18); Bilirubin, Total 0.5 mg/dL (0.2-1.0); CO2 29.4 mmol/L (21.0-32.0); CREATININE 0.7 mg/dL (0.55-1.02); Chloride 104 mmol/L (98-107); Glucose 167 mg/dL (74-106); Potassium 3.4 mmol/L (3.5-5.1); Sodium 140 mmol/L (136-145); Total Protein 7.1 g/dL (6.4-8.2)
== END 2021-10-20 03:16 | disposition home or self-care (01) ==
LOC: LBO 03:15
PROVIDERS: PCP Family Medicine; Visit Provider Internal Medicine Hematology & Oncology
DX: C50.411 Malignant neoplasm of upper-outer quadrant of right female breast (principal); Z17.1 Estrogen receptor negative status [ER-]
CPT/HCPCS: 36415; 80053; 85025

== ENCOUNTER 2021-11-13 02:27 | Outpatient (CLI) | payer MEDICARE, SELFPAY ==
[2021-11-13 10:17] LABS: Abs Immature Grans 0.01 10^3/uL (0.0-0.06); Absolute Basophil Count 0.01 10^3/uL (0.0-0.2); Absolute Eosinophil Count 0.11 10^3/uL (0.0-0.7); Absolute Lymphocyte Count 0.88 10^3/uL (1.2-3.4); Absolute Monocyte Count 0.52 10^3/uL (0.1-0.8); Basophils % 0.3; Eosinophils % 3.1; HCT 33.6 % (36.0-46.0); HGB 11.3 g/dL (11.2-15.7); Immature Grans % 0.3; Lymphocytes % 24.9; MCH 35.5 pg (27.0-33.0); MCHC 33.6 % (32.0-36.0); MCV 105.7 fL (80-95); MPV 9.4 fL (8.0-11.0); Monocytes % 14.7; Neutrophils % 56.7; Nucleated RBC 0 %; Platelet Count 122 10^3/uL (130-400); RBC 3.18 10^6/uL (3.93-5.22); RDW 17.2 % (11.7-14.6); RDW-SD 66.2 fL; WBC 3.53 10^3/uL (4.4-10.8)
[2021-11-13 10:35] LABS: ALT 40 U/L (14-59); AST 33 U/L (15-37); Alkaline Phosphatase 74 U/L (46-116); Anion Gap 9.5 mmol/L (3-11); BUN 11 mg/dL (7-18); Bilirubin, Total 0.5 mg/dL (0.2-1.0); CO2 27.5 mmol/L (21.0-32.0); CREATININE 0.8 mg/dL (0.55-1.02); Calcium 8.8 mg/dL (8.5-10.1); Chloride 104 mmol/L (98-107); Glucose 185 mg/dL (74-106); Potassium 3.4 mmol/L (3.5-5.1); Sodium 141 mmol/L (136-145); Total Protein 6.7 g/dL (6.4-8.2)
== END 2021-11-13 02:28 | disposition home or self-care (01) ==
LOC: LBO 02:28
PROVIDERS: PCP Family Medicine; Visit Provider Internal Medicine Hematology & Oncology
DX: C50.411 Malignant neoplasm of upper-outer quadrant of right female breast (principal); Z17.1 Estrogen receptor negative status [ER-]
CPT/HCPCS: 36415; 80053; 85025

== ENCOUNTER 2021-12-03 04:04 | Outpatient (CLI) | payer MEDICARE, SELFPAY ==
[2021-12-03 09:38] LABS: Abs Immature Grans 0.01 10^3/uL (0.0-0.06); Absolute Basophil Count 0.01 10^3/uL (0.0-0.2); Absolute Lymphocyte Count 0.77 10^3/uL (1.2-3.4); Absolute Monocyte Count 0.41 10^3/uL (0.1-0.8); Absolute Neutrophil Count 2.33 10^3/uL (1.2-6.7); Basophils % 0.3; Eosinophils % 2.8; HCT 32.1 % (36.0-46.0); HGB 10.6 g/dL (11.2-15.7); Immature Grans % 0.3; Lymphocytes % 21.2; MCH 35.6 pg (27.0-33.0); MCV 107.7 fL (80-95); MPV 9.8 fL (8.0-11.0); Monocytes % 11.3; Neutrophils % 64.1; Nucleated RBC 0 %; Platelet Count 122 10^3/uL (130-400); RBC 2.98 10^6/uL (3.93-5.22); RDW 18.2 % (11.7-14.6); RDW-SD 72.5 fL; WBC 3.63 10^3/uL (4.4-10.8)
[2021-12-03 09:53] LABS: ALT 40 U/L (14-59); AST 29 U/L (15-37); Albumin 4.1 g/dL (3.4-5.0); Alkaline Phosphatase 73 U/L (46-116); Anion Gap 6.3 mmol/L (3-11); BUN 9 mg/dL (7-18); Bilirubin, Total 0.5 mg/dL (0.2-1.0); CO2 29.7 mmol/L (21.0-32.0); CREATININE 0.7 mg/dL (0.55-1.02); Calcium 8.8 mg/dL (8.5-10.1); Chloride 107 mmol/L (98-107); Glucose 106 mg/dL (74-106); Potassium 3.2 mmol/L (3.5-5.1); Sodium 143 mmol/L (136-145); Total Protein 6.7 g/dL (6.4-8.2)
== END 2021-12-03 04:05 | disposition home or self-care (01) ==
PROVIDERS: PCP Family Medicine; Visit Provider Internal Medicine Hematology & Oncology
DX: Z17.1 Estrogen receptor negative status [ER-] (principal); C50.411 Malignant neoplasm of upper-outer quadrant of right female breast
CPT/HCPCS: 36415; 80053; 85025

== ENCOUNTER 2021-12-15 02:15 | Outpatient (CLI) | payer MEDICARE, SELFPAY ==
[2021-12-15 13:21] LABS: Abs Immature Grans 0.02 10^3/uL (0.0-0.06); Absolute Basophil Count 0.02 10^3/uL (0.0-0.2); Absolute Lymphocyte Count 0.92 10^3/uL (1.2-3.4); Absolute Monocyte Count 0.28 10^3/uL (0.1-0.8); Absolute Neutrophil Count 2.72 10^3/uL (1.2-6.7); Basophils % 0.5; Eosinophils % 2.5; HCT 35.1 % (36.0-46.0); HGB 11.6 g/dL (11.2-15.7); Immature Grans % 0.5; Lymphocytes % 22.7; MCH 34.6 pg (27.0-33.0); MCV 104.8 fL (80-95); MPV 9.5 fL (8.0-11.0); Monocytes % 6.9; Neutrophils % 66.9; Nucleated RBC 0 %; Platelet Count 144 10^3/uL (130-400); RBC 3.35 10^6/uL (3.93-5.22); RDW 17.1 % (11.7-14.6); RDW-SD 64.6 fL; WBC 4.06 10^3/uL (4.4-10.8)
[2021-12-15 13:36] LABS: ALT 52 U/L (14-59); AST 36 U/L (15-37); Albumin 4.1 g/dL (3.4-5.0); Alkaline Phosphatase 76 U/L (46-116); Anion Gap 9.8 mmol/L (3-11); BUN 14 mg/dL (7-18); Bilirubin, Total 0.5 mg/dL (0.2-1.0); CO2 25.2 mmol/L (21.0-32.0); CREATININE 0.8 mg/dL (0.55-1.02); Calcium 8.9 mg/dL (8.5-10.1); Chloride 101 mmol/L (98-107); Glucose 234 mg/dL (74-106); Potassium 4.1 mmol/L (3.5-5.1); Sodium 136 mmol/L (136-145)
== END 2021-12-15 02:16 | disposition home or self-care (01) ==
PROVIDERS: PCP Family Medicine; Visit Provider Internal Medicine Hematology & Oncology
DX: C50.411 Malignant neoplasm of upper-outer quadrant of right female breast (principal)
CPT/HCPCS: 36415; 80053; 85025

== ENCOUNTER 2021-12-25 03:36 | Outpatient (CLI) | payer MEDICARE, SELFPAY ==
[2021-12-25 13:36] LABS: COMMENT (LAB VIEW ONLY) 29.87 mg/dL; Microalb ug/mg Crea 8.4 ug/mg Cr
[2021-12-25 14:16] LABS: TSH 0.55 uIU/mL (0.36-3.74)
== END 2021-12-25 03:37 | disposition home or self-care (01) ==
LOC: LBO 03:36
PROVIDERS: Nurse Practitioner Family; PCP Family Medicine; Visit Provider Internal Medicine Hematology & Oncology
DX: E10.9 Type 1 diabetes mellitus without complications (principal); E03.9 Hypothyroidism, unspecified
CPT/HCPCS: 36415; 82043; 82570; 83036; 84443

== ENCOUNTER 2022-04-23 03:09 | Outpatient (CLI) | payer MEDICARE, SELFPAY ==
[2022-04-23 09:15] LABS: Abs Immature Grans 0.01 10^3/uL (0.0-0.06); Absolute Basophil Count 0.03 10^3/uL (0.0-0.2); Absolute Eosinophil Count 0.22 10^3/uL (0.0-0.7); Absolute Lymphocyte Count 1.22 10^3/uL (1.2-3.4); Absolute Monocyte Count 0.39 10^3/uL (0.1-0.8); Basophils % 0.7; Eosinophils % 5.4; HCT 41.7 % (36.0-46.0); HGB 13.2 g/dL (11.2-15.7); Immature Grans % 0.2; MCH 30.6 pg (27.0-33.0); MCHC 31.7 % (32.0-36.0); MCV 97 fL (80-95); MPV 9.5 fL (8.0-11.0); Monocytes % 9.6; Neutrophils % 54.1; Platelet Count 157 10^3/uL (130-400); RBC 4.32 10^6/uL (3.93-5.22); RDW 13.1 % (11.7-14.6); WBC 4.07 10^3/uL (4.4-10.8)
[2022-04-23 09:39] LABS: ALT 35 U/L (14-59); AST 22 U/L (15-37); Albumin 3.9 g/dL (3.4-5.0); Alkaline Phosphatase 81 U/L (46-116); Anion Gap 2.5 mmol/L (3-11); BUN 16 mg/dL (7-18); Bilirubin, Total 0.4 mg/dL (0.2-1.0); CO2 32.5 mmol/L (21.0-32.0); CREATININE 0.8 mg/dL (0.55-1.02); Calcium 9.1 mg/dL (8.5-10.1); Chloride 103 mmol/L (98-107); Sodium 138 mmol/L (136-145)
[2022-04-23 09:44] LABS: Potassium 2.9 mmol/L (3.5-5.1)
[2022-04-23 09:45] LABS: Glucose 50 mg/dL (74-106)
[2022-04-23 10:11] LABS: TSH 1.06 uIU/mL (0.36-3.74)
== END 2022-04-23 03:10 | disposition home or self-care (01) ==
PROVIDERS: Nurse Practitioner Family; PCP Family Medicine; Visit Provider Internal Medicine Hematology & Oncology
DX: C50.411 Malignant neoplasm of upper-outer quadrant of right female breast (principal); Z17.1 Estrogen receptor negative status [ER-]; E03.9 Hypothyroidism, unspecified
CPT/HCPCS: 36415; 80053; 84443; 85025

== ENCOUNTER → 2022-04-24 01:11 | Outpatient (CLI) | payer MEDICARE, SELFPAY ==
--- NOTE | 2022-04-24 10:21 | DI.DEXA_ITS ---
Exam(s) XR DEXA BONE DENSITY W/WO KAITLIN EXAM: XR DEXA BONE DENSITY W/WO KAITLIN CLINICAL HISTORY: screening / menopausal, N95.9 TECHNIQUE: [employer] C densitometer analysis of left hip and left forearm. The spine could n ot be analyzed due to non removable diabetic monitor. COMPARISON: 03 February 2010 FINDINGS: Lateral view of the thoracic and lumbar spine shows no evidence of compression fractures. Bone mineral density measurements of the left hip correspond to a total T-score of -2.6. The femora l neck T-score is -2.6, consistent with mild osteoporosis. This represents a 10.8 percent decrease in total hip bone density compared with 2009.. The left forearm bone mineral density measurements correspond to a T-score of the distal 3rd of -2.0 , in the osteopenic range.. This represents a 6.6 percent decrease when compared with 2009.. IMPRESSION: Osteopenia of the left forearm. Mild osteoporosis of the left hip.
== END ==
PROVIDERS: PCP Family Medicine; Visit Provider Family Medicine
DX: M81.0 Age-related osteoporosis without current pathological fracture (principal); M85.88 Other specified disorders of bone density and structure, other site; N95.8 Other specified menopausal and perimenopausal disorders
CPT/HCPCS: 77080

== ENCOUNTER 2022-06-09 13:37 | Emergency (ER) | payer MEDICARE, SELFPAY ==
[2022-06-09 13:52] VITALS: BP 134/66; PULSE 75; RESP 18; TEMP 36.8; O2SAT 98
--- NOTE | 2022-06-09 14:19 | W.ED.GENAD ---
Discharge Plan Disposition Patient Disposition: HOME Condition: Stable Discharge Details Clinical Impression: Distal radius fracture, right, Abrasion of knee, left Primary Care Provider: Mely Solano ED Provider: Christine Sosa Home Meds and New Rx's Prescriptions: New oxycodone 5 mg tablet 5 mg PO Q6H PRN (Reason: pain) Qty: 14 0RF Continued insulin glargine [Lantus Solostar U-100 Insulin] 100 unit/mL (3 mL) insulin pen 18 unit subcut HS Qty: 3 11RF ascorbate calcium (vitamin C) 500 mg tablet 500 mg PO DAILY (DME) Dexcom G6 Sensor Device See Rx Instructions .ROUTE .MEDSUPPLY Qty: 3 Rx Instructions: As directed (DME) Dexcom G6 Animal Nutritionist Misc See Rx Instructions .ROUTE .MEDSUPPLY Qty: 1 Rx Instructions: As directed (DME) Dexcom G6 Transmitter Device See Rx Instructions .ROUTE .MEDSUPPLY Qty: 1 Rx Instructions: As directed (DME) pen needle, diabetic [BD Ultra-Fine Short Pen Needle] 31 gauge x 5/16 needle See Rx Instructions .ROUTE .MEDSUPPLY Qty: 1200 Rx Instructions: As directed Glucagon Emergency Kit (human) 1 mg recon soln 1 mg subcut Q20M PRN Rx Instructions: until target blood sugar attained insulin lispro [Humalog KwikPen Insulin] 100 unit/mL insulin pen See Rx Instructions subcut tid with meals prn Rx Instructions: 1-6units subcut tid with meals prn; ICaps AREDS 7,160-113-100 hrbt-jk-[id number] tablet,delayed release (DR/EC) 1 tab PO ONCE levothyroxine 175 mcg tablet 175 mcg PO 6XW atenolol 25 mg tablet 25 mg PO DAILY Qty: 90 4RF atorvastatin 40 mg tablet 40 mg PO DAILY Qty: 90 3RF losartan 25 mg tablet 25 mg PO DAILY Qty: 90 3RF multivitamin 1 EACH tablet 1 ea PO DAILY sulfasalazine 500 MG tablet 2,000 mg PO BID Label Comments: 8 tabs daily- 12/27/13 CB Rx Instructions: [facility] [place] calcium carbonate-vitamin D3 [Calcium 600 + D(3)] 1 EACH tablet 2 ea PO DAILY chromium picolinate 200 MCG capsule 200 mcg PO DAILY metformin 500 MG tablet 1,000 mg PO BID 90 Days Qty: 360 3RF estradiol [Estrace] 0.01 % (0.1 mg/gram) cream See Rx Instructions VG .COMPLEX Qty: 42.5 4RF Rx Instructions: 1-2 grams vaginally three times weekly at bedtime.; alendronate 70 mg tablet 70 mg PO QWEEK Qty: 13 3RF Discharge Instructions Instructions: Wrist Fracture in Adults (ED), Abrasion (ED) Additional Instructions: Rest, ice, and elevate the affected area as much as possible. Take Tylenol as needed and directed for pain. Take the oxycodone for pain not relieved with Tylenol. Call the orthopedics office tomorrow to schedule a follow-up appointment for reevaluation. Return immediately to the emergency department if you develop any worsening or new concerning symptoms. Referrals: Xavier Martínez MD [ [facility] STAFF PHYSICIAN] - Marcos Jacobson MD [ [facility] STAFF PHYSICIAN] - Discharge Data Discharge Date/Time-TO BE ENTERED AT DEPARTURE: 06/09/22 17:21 Discharge Physician: Christine Sosa Medical Decision Making 67-year-old eyqwf-irdt-fhemvxei female with a history of ulcerative colitis, hypertension, hyperlipidemia, hypothyroidism, breast cancer with bilateral mastectomy presents with right wrist pain status post mechanical fall earlier today. She has a deformity noted to the right wrist likely consistent with a Colles' fracture status post FOOSH. She is otherwise neurovascularly intact without open wounds. She has a superficial abrasion to the left knee without other evidence of trauma and has no significant pain so do not suspect acute knee or leg fracture. We will give a dose of oxycodone and refer for wrist imaging. Right wrist x-ray noted an acute comminuted intra-articular fracture of the distal radius with dorsal angulation. Images reviewed and discussed with Dr. Jacobson who came to the ED and performed bedside reduction with finger traps and splint placement. Patient was referred for postreduction film and placed on orthopedic follow-up list. She was given oxycodone to go. Usual and customary return precautions given prior to discharge. Medical Records Medical records reviewed: Yes I reviewed the patient's medical records. Imaging Data Radiologic Study: Radiologist's impression: XR WRIST RT COMPLETE CLINICAL HISTORY: ? FOOSH, assess for extent of deformity.? TECHNIQUE:? 2D digital imaging was performed of the right wrist.? Three views were obtained. Delete PA, lateral and oblique views were obtained. COMPARISON:? No exams were available for comparison FINDINGS: BONES: There is an acute comminuted intra-articular fracture of the distal radius.? The distal fracture is angulated dorsally.? No bony destructive lesion is seen. JOINTS: The carpal bones are normally aligned. There are marked degenerative changes of the 1st CMC joint. SOFT TISSUE: Normal. IMPRESSION: Acute comminuted intra-articular fracture of the distal radius with dorsal angulation.? POST -REDUCTION -- XR WRIST RT COMPLETE CLINICAL HISTORY: ? post reduction film.? TECHNIQUE:? 2D digital imaging was performed of the right wrist.? Three views were obtained.? PA, lateral and oblique views were obtained. COMPARISON:? CR XR WRIST RT COMPLETE from 06/09/2022 FINDINGS: BONES: There does not appear to be any significant change in alignment of the intra-articular dorsally angulated and comminuted fracture of the distal radius.? The patient's wrist is in a cast.? No bony destructive lesion is seen. JOINTS: The carpal bones are normally aligned. SOFT TISSUE: Normal. IMPRESSION: No significant change in alignment of the distal right radial fracture.? HPI General Mode of arrival: ambulatory. Date/Time Provider Initiated Documentation: 06/09/22 14:05. Limitations to Documentation: no limitations. Information obtained by: patient. HPI Narrative: Patient is a 57-year-old udzss-haoz-zmrvtzof female with a history of ulcerative colitis, hypertension, hyperlipidemia, hypothyroidism, diabetes and breast cancer with history of bilateral mastectomy presents with right wrist pain status post mechanical fall 3 hours ago. Patient states she was climbing a hill when she tripped over a head and log falling onto her outstretched right hand. She states she also hit her left knee but denies any significant pain in this area. She states her tetanus is up-to-date. She denies head injury or any other injury. She states he took Tylenol prior to arrival for pain. She states she limits her use of ibuprofen due to her ulcerative colitis. Related Data Home Medications Medication Instructions Recorded Confirmed calcium carbonate 600 mg-vitamin 2 ea PO DAILY 07/25/13 06/09/22 D3 10 mcg (400 unit) tablet (Calcium 600 + D(3)) multivitamin 1 ea PO DAILY 07/25/13 06/09/22 sulfasalazine 500 mg tablet 2,000 mg PO BID 07/25/13 06/09/22 chromium picolinate 200 mcg capsule 200 mcg PO DAILY 12/14/17 06/09/22 metformin 500 mg tablet 1,000 mg PO BID 90 days #360 12/14/17 06/09/22 tab-caps insulin glargine 100 unit/mL (3 18 unit (0.18 mL) subcut HS #3 mL 03/04/20 06/09/22 mL) subcutaneous pen (Lantus Solostar U-100 Insulin) ascorbate calcium (vitamin C) 500 500 mg PO DAILY 12/31/20 06/09/22 mg tablet blood-glucose meter,continuous #1 ea 03/05/21 06/09/22 (Dexcom G6 Animal Nutritionist misc) blood-glucose sensor (Dexcom G6 #3 ea 03/05/21 06/09/22 Sensor device) blood-glucose transmitter (Dexcom #1 ea 03/05/21 06/09/22 G6 Transmitter device) glucagon (human recombinant) 1 mg 1 mg subcut Q20M PRN 03/05/21 06/09/22 solution for injection (Glucagon Emergency Kit) pen needle, diabetic 31 gauge x #1,200 ea 03/05/21 06/09/2216 (BD Ultra-Fine Short Pen Needle) insulin lispro 100 unit/mL See Rx Instructions subcut tid 03/06/21 06/09/22 subcutaneous pen (Humalog KwikPen with meals prn (U-100) Insulin) vit A 7,160 unit-C 113 mg-E 100 1 tab PO ONCE 03/06/21 06/09/22 lexn-aphp-mcolwe tablet,delayed rel. (ICaps AREDS) estradiol 0.01% (0.1 mg/gram) See Rx Instructions vaginal 11/24/21 06/09/22 vaginal cream (Estrace) .COMPLEX #42.5 grams atenolol 25 mg tablet 25 mg PO DAILY #90 tab-caps 03/13/22 06/09/22 atorvastatin 40 mg tablet 40 mg PO DAILY #90 tabs 03/13/22 06/09/22 levothyroxine 175 mcg tablet 175 mcg PO 6XW 03/13/22 06/09/22 losartan 25 mg tablet 25 mg PO DAILY #90 tab-caps 03/13/22 06/09/22 alendronate 70 mg tablet 70 mg PO QWEEK #13 tabs 04/24/22 06/09/22 oxycodone 5 mg tablet 5 mg PO Q6H PRN pain #14 tabs 06/09/22 Previous Rx's Medication Instructions Recorded metformin 500 mg tablet 1,000 mg PO BID 90 days #360 12/14/17 tab-caps insulin glargine 100 unit/mL (3 18 unit (0.18 mL) subcut HS #3 mL 03/04/20 mL) subcutaneous pen (Lantus Solostar U-100 Insulin) estradiol 0.01% (0.1 mg/gram) See Rx Instructions vaginal 11/24/21 vaginal cream (Estrace) .COMPLEX #42.5 grams atenolol 25 mg tablet 25 mg PO DAILY #90 tab-caps 03/13/22 atorvastatin 40 mg tablet 40 mg PO DAILY #90 tabs 03/13/22 losartan 25 mg tablet 25 mg PO DAILY #90 tab-caps 03/13/22 alendronate 70 mg tablet 70 mg PO QWEEK #13 tabs 04/24/22 oxycodone 5 mg tablet 5 mg PO Q6H PRN pain #14 tabs 06/09/22 Allergies Allergy/AdvReac Type Severity Reaction Status Date / Time shellfish derived Allergy Mild Verified 06/09/22 14:02 lactose AdvReac Mild Verified 06/09/22 14:02 lisinopril AdvReac Mild COUGH Verified 06/09/22 14:02 General Stated Complaint: Orthopedic ALEX: 4 Review of Systems All systems reviewed & are unremarkable except as noted in HPI and below Constitutional Constitutional: Reports as per HPI, Denies chills and Denies fever(s) Eyes Eyes: Denies blurry vision ENT Ears, Nose, Mouth, and Throat: Denies dizziness, Denies sore throat and Denies throat swelling Cardiovascular Cardiovascular: Denies chest pain and Denies dyspnea Respiratory Respiratory: Denies cough and Denies dyspnea Gastrointestinal Gastrointestinal: Denies abdominal pain, Denies diarrhea and Denies vomiting Genitourinary Genitourinary: Denies hematuria and Denies dysuria Musculoskeletal Musculoskeletal: Denies back pain and Denies numbness Comments: right wrist pain Integumentary/Breasts Skin/Breast: Denies lesions and Denies rash Neurologic Neurologic: Denies dizziness, Denies localized weakness and Denies numbness Allergic/Immunologic Allergic/Immunologic: Denies throat swelling PFSH All Active Problems Distal radius fracture, right (Acute) Abrasion of knee, left (Acute) Osteoporosis of femur without pathological fracture (Acute ~04/24/22) 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), managed as type 1 (Acute 2019) managed by [facility] [place] Hypothyroidism (Chronic) Managed by [facility] [place] endocrinology Ulcerative colitis (Acute) followed by [facility] [place] GI (q 2 yr colonoscopy) Hyperlipidemia (Acute) Essential hypertension (Acute 11/28/13) Vaginal dryness, menopausal (Chronic) managed with estradiol vaginally Medical History History of lobular carcinoma of breast triple negative, invasive; s/p oral chemo; IV chemo Leukoplakia Migraine Sigmoid diverticulosis (03/11/18) Surgical History History of bilateral ligation of fallopian tubes (~07/1991) S/P colonoscopy (~06/29/19) S/P mastectomy, bilateral (04/2021) Family History Mother , AGE 99 Depression Hyperlipidemia Hypertension Father , AGE 83 Heart disease Myocardial infarction Stroke Alcohol abuse Hypertension Sister Diverticulitis Hyperlipidemia Hypertension Brother Hypertension Brother Diverticulitis Prostate cancer Hypertension Brother Hyperlipidemia Hypertension Brother Alcohol abuse Depression Diverticulitis Hypertension Maternal Grandfather , AGE 92 No problems noted. Paternal Grandfather , AGE 93 No problems noted. Maternal Grandmother , AGE 30 No problems noted. Paternal Grandmother , AGE 30 Cancer Son Hyperlipidemia Son Depression Daughter Cervical cancer Social History Smoking/Tobacco Use Status: Never Second Hand Exposure: Yes Smoking risk assessment performed?: Yes Alcohol Intake: former Drug use: Never Substance use type: does not use Caregiver/Support person: No Household members: spouse Housing: house Number of Children: 3 number of grandchildren: 2 Communication Needs: None Education Level: college Details: BS in recreation administration. 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 Pets and animals: No Sexually active: No Do you think of yourself as: straight/heterosexual Current gender identity: female What is your relationship status?: How often do you talk on the phone with friends or family?: three or more times per week How often do you get together with friends or relatives?: twice per week How often do you attend denominational or confucianism services?: 4 or more times per year Do you belong to any clubs or organized social groups?: yes Panel score (0-1 are the most socially isolated patients): 4 What type of physical activity do you participate in: walking and additional Details: SEASONAL ACTIVITIES Duration: 30-45 minutes/day Frequency: 3-4 times per week Angelina/Mandaen: Synagogue Special angelina needs: No Seatbelt use: always Helmet use: Yes Helmet use: sometimes Drive intox or ride w/intox trailer truck driver: No Do you feel safe at home: Yes Do you feel safe in your relationship?: Yes Additional Social history: Enjoys hiking, kayaking, being outdoors. Exam Const General: cooperative and uncomfortable Orientation: alert, awake and oriented x3 HENMT Head: normal to inspection Mouth: oral mucosae normal Eyes General: appearance normal, both eyes and all related structures Neck Neck: normal visual inspection Resp Effort & Inspection: normal respiratory effort and able to speak in complete sentences Cardio Rate: regular rate Skin General skin exam: no rashes or lesions noted Neuro General: patient alert, patient awake and patient oriented x3 Motor: muscle tone normal throughout Extrem Knee images: 1. 1 x 1 cm superficial abrasion without significant tenderness to palpation, edema, ecchymosis, deformity or pain with range of motion. Other: Deformity noted to right wrist with tenderness to palpaiton and dorsal angulation of distal wrist. Right radial and ulnar pulses intact. No obvious open wounds noted. Normal capillary refill. No tenderness to palpation to her right elbow or shoulder. Psych Appearance: grossly normal Affect: normal affect Course Vital Signs Vital signs: Vital Signs Temperature 98.2 F 06/09/22 13:52 Pulse 75 06/09/22 13:52 Respiratory Rate 18 06/09/22 13:52 Blood Pressure 134/66 06/09/22 13:52 Pulse Oximetry 98 06/09/22 13:52 Temperature 98.2 F 07/12/22 13:52 Temperature Source Tympanic 06/09/22 13:52 Pulse 75 06/09/22 13:52 Respiratory Rate 18 06/09/22 13:52 Respiratory Effort 06/09/22 13:57 Blood Pressure 134/66 06/09/22 13:52 Blood Pressure Position Sitting 06/09/22 13:52 Pulse Oximetry 98 06/09/22 13:52 Oxygen Delivery Method Room Air 06/09/22 13:52 Oxygen Flow Rate 0 06/09/22 13:52 Pain Level 8 06/09/22 14:00
[2022-06-09] MEDS: oxyCODONE 5 MG TAB PO ×2 (14:27→15:46)
--- NOTE | 2022-06-09 14:52 | DI.RAD_ITS ---
Exam(s) XR WRIST RT COMPLETE EXAM: XR WRIST RT COMPLETE CLINICAL HISTORY: FOOSH, assess for extent of deformity. TECHNIQUE: 2D digital imaging was performed of the right wrist. Three views were obtained. Delete P A, lateral and oblique views were obtained. COMPARISON: No exams were available for comparison FINDINGS: BONES: There is an acute comminuted intra-articular fracture of the distal radius. The distal fractu re is angulated dorsally. No bony destructive lesion is seen. JOINTS: The carpal bones are normally aligned. There are marked degenerative changes of the 1st CMC j oint. SOFT TISSUE: Normal. IMPRESSION: Acute comminuted intra-articular fracture of the distal radius with dorsal angulation. DATA REPOSITORY: RADIATION DOSE DELIVERED:
--- NOTE | 2022-06-09 16:15 | DI.RAD_ITS ---
Exam(s) XR WRIST RT COMPLETE EXAM: XR WRIST RT COMPLETE CLINICAL HISTORY: post reduction film. TECHNIQUE: 2D digital imaging was performed of the right wrist. Three views were obtained. PA, lat eral and oblique views were obtained. COMPARISON: CR XR WRIST RT COMPLETE from 06/09/2022 FINDINGS: BONES: There does not appear to be any significant change in alignment of the intra-articular dorsall y angulated and comminuted fracture of the distal radius. The patient's wrist is in a cast. No bony destructive lesion is seen. JOINTS: The carpal bones are normally aligned. SOFT TISSUE: Normal. IMPRESSION: No significant change in alignment of the distal right radial fracture. DATA REPOSITORY: RADIATION DOSE DELIVERED:
--- NOTE | 2022-06-10 05:58 | OCONE_ITS ---
Date of service: 06/09/22 Time of Service: 16:00 History of Present Illness History of Present Illness Chief Complaint: Right Wrist Fracture Narrative: Tatyana is an active 67-year-old who presents today from a fall while hiking. She landed on outstretched right hand and had immediate deformity and pain. She was brought into the emergency department and diagnosed with a comminuted and displaced intra-articular distal radius fracture. She does have a significant history of type 1 diabetes which is under good control and managed by endocrinology at [facility]. She also had recent treatment for breast cancer of which she has completed her treatment course appears to be doing well from this. She has previously been diagnosed osteoporosis and does take alendronate in addition to vitamin C and vitamin D. She enjoys walking and this is her primary exercise as well as her enjoyment and wants to get back to hiking as soon as possible. She is right-hand dominant. She denies numbness or tingling. She denies any head trauma or loss of consciousness. She denies any issues with this right hand or arm prior to the fall. Consults Consult date: 06/09/22 Requesting physician: Christine Sosa Consult Reason Right distal radius fracture Assessment and Plan Assessment and plan (1) Distal radius fracture, right: Status: Acute Assessment and plan: Tatyana is a 67-year-old pyisa-lrtv-egdzbalf female who suffered a fall onto the outstretched right hand. Unfortunately, she has a displaced intra-articular fracture of the right distal radius. She is right-hand dominant and is very active and given the nondisplacement and failure to fully regain anatomical acceptable alignment. She tolerated the reduction well but during the reduction improvement could be palpated but then dorsal displacement would recur without direct pressure being applied. Given this instability of the fracture I recommended surgical fixation. Surgical fixation would also improve the intra- articular split and hopefully reduce potential for arthritis in the future. I reviewed treatment options with her including a closed reduction and anesthesia with casting. I discussed the risk of the procedure to include bleeding, infection, pain, stiffness, damage to nerves and vessels, damage to muscle and tendons, malunion, nonunion, hardware failure, hardware prominence. I was unable to fully discuss the updated x-ray with her and her high prior to discharge but will call them by phone with likely proceeding to surgical fixation in the next few days. 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), managed as type 1 (Acute 2019) managed by [facility] [place] Hypothyroidism (Chronic) Managed by [facility] [place] endocrinology Ulcerative colitis (Acute) followed by [facility] [place] GI (q 2 yr colonoscopy) Hyperlipidemia (Acute) Essential hypertension (Acute 11/28/13) Vaginal dryness, menopausal (Chronic) managed with estradiol vaginally Medical History History of lobular carcinoma of breast triple negative, invasive; s/p oral chemo; IV chemo Leukoplakia Migraine Sigmoid diverticulosis (03/11/18) Surgical History History of bilateral ligation of fallopian tubes (~07/1991) S/P colonoscopy (~06/29/19) S/P mastectomy, bilateral (04/2021) Family History Mother , AGE 99 Depression Hyperlipidemia Hypertension Father , AGE 83 Heart disease Myocardial infarction Stroke Alcohol abuse Hypertension Sister Diverticulitis Hyperlipidemia Hypertension Brother Hypertension Brother Diverticulitis Prostate cancer Hypertension Brother Hyperlipidemia Hypertension Brother Alcohol abuse Depression Diverticulitis Hypertension Maternal Grandfather , AGE 92 No problems noted. Paternal Grandfather , AGE 93 No problems noted. Maternal Grandmother , AGE 30 No problems noted. Paternal Grandmother , AGE 30 Cancer Son Hyperlipidemia Son Depression Daughter Cervical cancer Social History Smoking/Tobacco Use Status: Never Second Hand Exposure: Yes Smoking risk assessment performed?: Yes Alcohol Intake: former Drug use: Never Substance use type: does not use Caregiver/Support person: No Household members: spouse Housing: house Number of Children: 3 number of grandchildren: 2 Communication Needs: None Education Level: college Details: BS in recreation administration. 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 Pets and animals: No Sexually active: No Do you think of yourself as: straight/heterosexual Current gender identity: female What is your relationship status?: How often do you talk on the phone with friends or family?: three or more times per week How often do you get together with friends or relatives?: twice per week How often do you attend baptist or taoism services?: 4 or more times per year Do you belong to any clubs or organized social groups?: yes Panel score (0-1 are the most socially isolated patients): 4 What type of physical activity do you participate in: walking and additional Details: SEASONAL ACTIVITIES Duration: 30-45 minutes/day Frequency: 3-4 times per week Angelina/Shinto: Anabaptism Special angelina needs: No Seatbelt use: always Helmet use: Yes Helmet use: sometimes Drive intox or ride w/intox drivers license examiner: No Do you feel safe at home: Yes Do you feel safe in your relationship?: Yes Additional Social history: Enjoys hiking, kayaking, being outdoors. Exam Narrative Exam Narrative: Comfortable sitting up in the hospital stretcher. The right arm is resting on ice. There is a notable dinner fork type deformity of the right wrist. Mild ecchymosis seen volarly. No defect in skin. No abrasions or lacerations. She is able to demonstrate some active finger extension and finger flexion. Sensation intact to light touch of the median, radial, ulnar nerve. No significant swelling within the forearm. No pain within the elbow to palpation. Resp Effort & Inspection: normal respiratory effort Auscultation: clear to auscultation bilaterally Cardio Rate: regular rate Rhythm: regular rhythm Results Last Vital Signs Temp 36.8 C 06/09/22 13:52 Pulse 75 06/09/22 13:52 Resp 18 06/09/22 13:52 BP 134/66 06/09/22 13:52 Pulse Ox 98 06/09/22 13:52 Imaging Imaging Studies: X-ray of the right wrist demonstrates a comminuted, intra-articular fracture of the distal radius with dorsal displacement of at least 45 degrees and some shortening and loss of radial inclination. Postreduction x-rays of the right wrist shows some mild improvement with the dorsal angulation and the shortening. However, there still remains dorsal displacement as well as a gap in the intra-articular fracture fragment seen on the lateral view. Procedures Orthopedic Fracture Reduction Right wrist: Time out performed: Yes Side: right Fracture reduction location: radius Analgesia: hematoma block Technique: direct manipulation and finger traps Post-reduction x-rays demonstrate: other (Improvement of the dorsal angulation and positioning but still lacking anatomic except ability.) Post-reduction neuro exam: intact Post-reduction vascular exam: intact Splint applied: Yes Patient tolerated procedure: well
== END 2022-06-09 17:21 | disposition home or self-care (01) ==
PROVIDERS: Emergency Provider Physician Assistant; PCP Family Medicine
DX: S52.571A Other intraarticular fracture of lower end of right radius, initial encounter for closed fracture (principal); S80.212A Abrasion, left knee, initial encounter; I10 Essential (primary) hypertension; E11.9 Type 2 diabetes mellitus without complications; Z79.4 Long term (current) use of insulin; Z77.22 Contact with and (suspected) exposure to environmental tobacco smoke (acute) (chronic); W18.09XA Striking against other object with subsequent fall, initial encounter; Y93.39 Activity, other involving climbing, rappelling and jumping off; Y92.828 Other wilderness area as the place of occurrence of the external cause
CPT/HCPCS: 99283; 99284; 25605; 73110

== ENCOUNTER 2022-06-15 01:25 | Outpatient (CLI) | payer MEDICARE, SELFPAY ==
[2022-06-15 11:55] LABS: Source Nasal/Nares
[2022-06-15 15:28] LABS: COVID-19 PCR Negative (Negative)
== END 2022-06-15 01:26 | disposition home or self-care (01) ==
LOC: LBO 01:25
PROVIDERS: PCP Family Medicine; Visit Provider Student in an Organized Health Care Education/Training Program
DX: Z20.822 Contact with and (suspected) exposure to COVID-19 (principal); Z01.818 Encounter for other preprocedural examination
CPT/HCPCS: 87635

== ENCOUNTER 2022-06-16 10:36 | Day surgery (SDC) | payer MEDICARE, SELFPAY ==
[2022-06-16] VITALS (10 sets, daily range): BP systolic 114–154; BP diastolic 63–96; PULSE 53–76; RESP 14–20; TEMP 36.4; O2SAT 93–98; BMI 22.1
[2022-06-16] MEDS: Lactated Ringers 1,000 ML 80 ML IV (11:10)
--- NOTE | 2022-06-16 11:13 | W.PM.DSUDISC ---
Discharge Plan Disposition Patient Disposition: HOME Condition: Good Discharge Details Reason For Visit: Right Distal Radius ORIF Attending Provider: Marcos Jacobson Primary Care Provider: Mely Solano Home Meds and New Rx's Prescriptions: New acetaminophen 500 mg capsule 1,000 mg PO Q8H PRN PRNQty: 30 0RF ibuprofen 600 mg tablet 600 mg PO TID Qty: 30 0RF oxycodone 5 mg tablet 5 mg PO Q4H PRNQty: 7 0RF Continued insulin glargine [Lantus Solostar U-100 Insulin] 100 unit/mL (3 mL) insulin pen 18 unit subcut HS Qty: 3 11RF ascorbate calcium (vitamin C) 500 mg tablet 500 mg PO DAILY (DME) Dexcom G6 Sensor Device See Rx Instructions .ROUTE .MEDSUPPLY Qty: 3 Rx Instructions: As directed (DME) Dexcom G6 Cardiac Cath Lab Radiology Technologist Misc See Rx Instructions .ROUTE .MEDSUPPLY Qty: 1 Rx Instructions: As directed (DME) Dexcom G6 Transmitter Device See Rx Instructions .ROUTE .MEDSUPPLY Qty: 1 Rx Instructions: As directed (DME) pen needle, diabetic [BD Ultra-Fine Short Pen Needle] 31 gauge x 5/16 needle See Rx Instructions .ROUTE .MEDSUPPLY Qty: 1200 Rx Instructions: As directed Glucagon Emergency Kit (human) 1 mg recon soln 1 mg subcut Q20M PRN Rx Instructions: until target blood sugar attained insulin lispro [Humalog KwikPen Insulin] 100 unit/mL insulin pen See Rx Instructions subcut tid with meals prn Rx Instructions: 1-6units subcut tid with meals prn; ICaps AREDS 7,160-113-100 ospl-yv-rpuk tablet,delayed release (DR/EC) 1 tab PO ONCE levothyroxine 175 mcg tablet 175 mcg PO 6XW atorvastatin 40 mg tablet 40 mg PO DAILY Qty: 90 3RF multivitamin 1 EACH tablet 1 ea PO DAILY sulfasalazine 500 MG tablet 2,000 mg PO BID Label Comments: 8 tabs daily- 12/27/13 CB Rx Instructions: [facility] [place] calcium carbonate-vitamin D3 [Calcium 600 + D(3)] 1 EACH tablet 2 ea PO DAILY chromium picolinate 200 MCG capsule 200 mcg PO DAILY metformin 500 MG tablet 1,000 mg PO BID 90 Days Qty: 360 3RF estradiol [Estrace] 0.01 % (0.1 mg/gram) cream See Rx Instructions VG .COMPLEX Qty: 42.5 4RF Rx Instructions: 1-2 grams vaginally three times weekly at bedtime.; alendronate 70 mg tablet 70 mg PO QWEEK Qty: 13 3RF oxycodone 5 mg tablet 5 mg PO Q6H PRN (Reason: pain) Qty: 14 0RF atenolol 25 mg tablet 25 mg PO HS losartan 25 mg tablet 25 mg PO HS Discharge Instructions Additional Instructions: Wrist Fracture Fixation Discharge Instructions Activity: You should keep the hand/wrist elevated as much as possible for the first few days. You may use the other fingers as tolerated but avoid trying to do too much too soon. You may perform light activities with the splint in place. Dressing/Cast: Your splint should stay in place at all times. Do NOT get it wet. You may loosen the YENNY wrap if you feel it is too tight and then rewrap more loosely. Medications: - You should take Tylenol and Ibuprofen for baseline pain control. - You have been prescribed a stronger pain medication, Oxycodone, for breakthrough pain. - You may apply ice over the wrist, just double bag so it doesn't get wet. Follow-up: 10-14 days Referrals: Marcos Jacobson MD [ [facility]YS[facility]IAN] - Equipment/Supplies: Splint Activity:: Elevate Remove Dressings/Wound Care:: Do Not Remove Shower/Bathe:: Cover Diet:: As Tolerated Discharge Orders Discharge Orders: Discharge Order (Routine); Ordered 06/16/22 Ordered By: Darlene Rosenberg DS: Diagnosis Discharge Diagnosis (1) Distal radius fracture, right: Status: Acute
--- NOTE | 2022-06-16 11:16 | W.ANESPRE ---
General Info Date of Service Date Performed: 06/16/22 Height: 5 ft 7 in Weight: 64.2 kg Body Mass Index (BMI): 22.1 Surgical Procedure: Operation Date: 06/16/22 13:40 Proposed Procedure Side Surgeon p Wrist ORIF Distal Radius Right Marcos Jacobson MD Meds Allergies and Home Medications Allergies Allergy/AdvReac Type Severity Reaction Status Date / Time shellfish derived Allergy Mild Verified 06/16/22 10:54 lactose AdvReac Mild Verified 06/16/22 10:54 lisinopril AdvReac Mild COUGH Verified 06/16/22 10:54 Home Medication Medication Instructions Recorded calcium carbonate 600 mg-vitamin 2 ea PO DAILY 07/25/13 D3 10 mcg (400 unit) tablet (Calcium 600 + D(3)) multivitamin 1 ea PO DAILY 07/25/13 sulfasalazine 500 mg tablet 2,000 mg PO BID 07/25/13 chromium picolinate 200 mcg capsule 200 mcg PO DAILY 12/14/17 metformin 500 mg tablet 1,000 mg PO BID 90 days #360 12/14/17 tab-caps insulin glargine 100 unit/mL (3 18 unit (0.18 mL) subcut HS #3 mL 03/04/20 mL) subcutaneous pen (Lantus Solostar U-100 Insulin) ascorbate calcium (vitamin C) 500 500 mg PO DAILY 12/31/20 mg tablet blood-glucose meter,continuous #1 ea 03/05/21 (Dexcom G6 Production Team Member misc) blood-glucose sensor (Dexcom G6 #3 ea 03/05/21 Sensor device) blood-glucose transmitter (Dexcom #1 ea 03/05/21 G6 Transmitter device) glucagon (human recombinant) 1 mg 1 mg subcut Q20M PRN 03/05/21 solution for injection (Glucagon Emergency Kit) pen needle, diabetic 31 gauge x #1,200 ea 03/05/2104/13 (BD Ultra-Fine Short Pen Needle) insulin lispro 100 unit/mL See Rx Instructions subcut tid 03/06/21 subcutaneous pen (Humalog KwikPen with meals prn (U-100) Insulin) vit A 7,160 unit-C 113 mg-E 100 1 tab PO ONCE 03/06/21 jsqn-vdsn-bavnhm tablet,delayed rel. (ICaps AREDS) estradiol 0.01% (0.1 mg/gram) See Rx Instructions vaginal 11/24/21 vaginal cream (Estrace) .COMPLEX #42.5 grams atorvastatin 40 mg tablet 40 mg PO DAILY #90 tabs 03/13/22 levothyroxine 175 mcg tablet 175 mcg PO 6XW 03/13/22 alendronate 70 mg tablet 70 mg PO QWEEK #13 tabs 04/24/22 oxycodone 5 mg tablet 5 mg PO Q6H PRN pain #14 tabs 06/09/22 atenolol 25 mg tablet 25 mg PO HS 06/12/22 losartan 25 mg tablet 25 mg PO HS 06/12/22 acetaminophen 500 mg capsule 1,000 mg PO Q8H PRN PRN #30 caps 06/16/22 ibuprofen 600 mg tablet 600 mg PO TID #30 tabs 06/16/22 oxycodone 5 mg tablet 5 mg PO Q4H PRN #7 tabs 06/16/22 Current Visit Medications: Current Medications Generic Name Dose Route Start Last Admin Trade Name Freq PRN Reason Stop Dose Admin Acetaminophen 650 mg 06/16/22 11:12 Acetaminophen 325 Mg Tab PO Q4H PRN PRN Ringer's Solution 1,000 mls @ 80 mls/hr 06/16/22 06:00 06/16/22 11:10 IV 07/15/22 23:59 80 mls/hr INFUSION EDGARD Administration Cefazolin Sodium 2,000 mg/ 2 mls @ 4 mls/hr 06/16/22 06:00 Sodium Chloride IVPB 06/16/22 16:00 PREOP EDGARD Ondansetron HCl 4 mg/ Sodium 52 mls @ 200 mls/hr 06/16/22 11:12 Chloride IVPB Q6H PRN PRN IV Miscellaneous Supplies 1 each 06/16/22 06:00 Iv Access IV 07/15/22 23:59 DIRECTED EDGARD Oxycodone HCl 5 mg 06/16/22 11:12 Oxycodone 5 Mg Tab PO Q3H PRN PRN Pain Sodium Chloride 0 ml 06/16/22 06:00 Normal Saline Flush 10 Ml Syr IV 07/15/22 23:59 PRN PRN Sodium Chloride 0 ml 06/16/22 06:00 Normal Saline 10 Ml Vial IJ 07/15/22 23:59 DIRECTED PRN Sterile Water 0 ml 06/16/22 06:00 Water,Injection,Sterile 10 Ml Vial IJ 07/15/22 23:59 DIRECTED PRN PFSH Active Problems Active Problems: Problem Status Onset Code Hypothyroidism E03.9 Ulcerative colitis K51.90 Hyperlipidemia E78.5 Essential hypertension 11/28/13 I10 Vaginal dryness, menopausal N95.1 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 stated she had dried cough Surgical History Surgical History History of bilateral ligation of fallopian tubes (~07/1991) S/P colonoscopy (~06/29/19) S/P mastectomy, bilateral (04/2021) Preferred BP and IV starts on LEFT arm Tobacco Smoking/Tobacco Use Status: Never Passive smoking exposure: Yes Second hand exposure: Yes Alcohol Alcohol Intake: former Substance Use Substance use: Never Substance use type: does not use Vital Signs and Lab Results Vital Signs Most Recent Vital Signs in EMR: Most Recent Vital Signs Temp Pulse Resp BP Pulse Ox 36.4 C L 69 17 145/77 H 98 06/16/22 11:11 06/16/22 11:11 06/16/22 11:11 06/16/22 11:11 06/16/22 11:11 Lab Results Blood Type / Crossmatch: No Data to Display Complete Blood Count: No Data to Display Complete Metabolic Panel: No Data to Display Liver Function Panel: No Data to Display Coagulation Panel: No Data to Display Cardiac Panel: No Data to Display Arterial Blood Gas: No Data to Display Venous Blood Gas: No Data to Display Pancreas Panel: No Data to Display Thyroid Panel: No Data to Display Infectious Disease: Coronavirus (COVID-19)(PCR) Negative (Negative) 06/15/22 09:17 Coronavirus 2019 Source Nasal/Nares 06/15/22 09:17 Blood Cultures: No Data to Display Toxicology Panel: No Data to Display Imaging and Studies Imaging and Studies Study information below may be from another EMR and interpreted by another provider. Please see original notes in EMR for more complete details. Stress Test Summary: Date of Exam: 09/11/19Sex: F Admission Date: 09/11/19 : 1955 Age: 64 Exam: Exercise Treadmill Indications: Episodes of nausea and weakness Clinical Reason for Termination: Maximal effort Exercise duration: 6.5 min sec Highest Stage Achieved: Stage 2: 2.5 mph at 12% grade. Exercise capacity: 8.43 METs Functional Capacity: Average Stress ECG Conclusion 1. The patient demonstrated reasonable exercise tolerance (8.4 METS) 2. This was a maximal effort stress test 3. There were [address] depressions in the inferior leads during exercise. These depressions resolved during recovery MPI Conclusion There is no evidence of ischemia on imaging portion of this exam. Wall motion was normal. There are discordant findings between EKG and imaging portion of this exam. The Tamayo Score (-4) estimates an annual cardiovascular mortality of 2% and a five year survival of 89% Using the Tamayo Score there is an intermediate probability of angiographic coronary disease. Anesthesia Assessment and Plan Anesthesia History Personal History: No History of Anesthesia Complications and Other (Coughing fit with last proceudre during surgery and after ) Family History: No Family History of Anesthesia Complications Exercise Tolerance Exercise Tolerance: Metabolic Equivalents<4 Pertinent Negatives Pertinent Negatives: No Symptoms of GERD Cardiac & Pulmonary Exam Cardiac Exam: Normal S1/S2 Heart Sounds Pulmonary Exam: Clear Bilateral Breath Sounds Implantable Cardiac Device Does patient have a Pacemaker or an ICD?: No Airway Exam Known Difficult Airway: No Mallampati Class: 2 Mouth Opening: Normal (> 3cm) Thyromental Distance: Greater than 3 cm Neck Range of Motion: Full ROM Neck Circumference: Normal Teeth Condition: Normal Dentition ASA Classification ASA Score: ASA 2 Emergency Case?: No NPO Status NPO Status: NPO Clears >2 hours, Solids >8 hours Anesthesia Plan Resuscitation Status: Full Code Anesthesia Technique: General Anesthesia Airway Planned: LMA Pain Management: Surgeon and patient request nerve block Monitors Used: Standard Monitors
[2022-06-16] MEDS: Lidocaine 1% Multi-Dose W/EPI 1/100,000 50 ML VIAL (12:28)
--- NOTE | 2022-06-16 12:34 | W.ANESNERVE ---
Nerve Block Single Injection Procedure Date and Time Date Performed: 06/16/22 Procedure Start: 11:27 Location Where Procedure Performed Procedure Location: Day Surgery Unit Reason Performed: Postoperative Analgesia Requesting Provider: Marcos Jacobson Timeout Performed Timeout Performed: Yes Monitoring Used ECG, Blood Pressure, SpO2 and See EMR for corresponding vital signs Sterility Sterility: Hand Hygiene, Surgical Cap, Surgical Mask, Sterile Gloves and Chlorhexidine Sedation Given During Procedure Sedation Given (Indicate Dose Given): Versed IV Dose:: 2mg Patient Mental Status Patient Mental Status: Sedate with meaningful communication Nerve Block 1st Nerve Block: Laterality: Right Block Type: Supraclavicular Needle / Catheter Used: 100mm SonoPlex II Local Anesthetic Bolus (Indicate Dose Given): Lidocaine used for local infiltration of skin, Injected in 3-5ml increments after negative blood aspiration and Bupivacaine 0.5% Dose:: 20 mL Additives (Indicate Dose Given): None Ultrasound: Sterile probe cover and gel used Ultrasound Image Saved?: Yes Nerve Stimulator: Not Used Paresthesia: None Procedure Tolerated: No Complications and Patient tolerated well Procedure Outcome: Successful Performed By: Martita Hernández Supervised By: Gasper Fan
--- NOTE | 2022-06-16 13:43 | DI.RAD_ITS ---
Exam(s) XR WRIST RT LIMITED EXAM: XR WRIST RT LIMITED CLINICAL HISTORY: Right Wrist Fracture. TECHNIQUE: 2D digital imaging was performed. COMPARISON: CR XR WRIST RT COMPLETE from 06/09/2022 FINDINGS: Fluoroscopy was provided during open reduction internal fixation of distal radius fracture with place ment of volar fixation plate. See procedure report for details. Total cumulative dose 0.5240mGy IMPRESSION: DATA REPOSITORY: RADIATION DOSE DELIVERED:
--- NOTE | 2022-06-16 14:02 | W.ANESPOSTOP ---
Postoperative Evaluation Date, Time and Location Date Performed: 06/16/22 Time Performed: 14:04 Patient Location: PACU Vital Signs Most Recent Imported Vital Signs: Most Recent Vital Signs Temp Pulse Resp BP Pulse Ox 36.4 C L 64 14 138/67 93 06/16/22 13:31 06/16/22 13:50 06/16/22 13:50 06/16/22 13:50 06/16/22 13:50 Pain Score Most Recent Pain Score: Most Recent Pain Score Pain Level 2 06/16/22 13:50 Assessment Mental Status: Awake (Alert & Oriented to Patient Baseline) Airway and Respiratory Function: Patent airway with normal (patient baseline) respiratory exam Cardiovascular Function: Hemodynamically Stable Hydration Status: Adequately Hydrated Nausea & Vomiting: No Nausea or Vomiting Pain: Pain is tolerable per patient Peripheral Nerve Block: Regional nerve block not resolved at time of post operative discharge
--- NOTE | 2022-06-16 15:36 | W.PM.OP ---
Date of service: 06/16/22 Time of Service: 13:30 Operative Note Operative Note DATE OF PROCEDURE: 06/16/22 PRE-OP DIAGNOSIS: Right distal radius fracture POST-OP DIAGNOSIS: same PROCEDURE: Open Reduction and Internal Fixation of Right Distal Radius SURGEON: Marcos Jacobson CORE CUTTER AND REAMER: Darlene Rosenberg Refer to Anesthesia Record ESTIMATED BLOOD LOSS: 10 PATHOLOGY: none sent TOURNIQUET TIME: 36 COMPLICATIONS: None Patient was transported to: PACU Patient's condition: stable Indications: Tatyana is a 67-year-old [id number] female who I have seen for a distal radius fracture. Given the deformity, displacement, fracture pattern, and effect on daily function, I recommended surgical fixation. I reviewed the risk of the procedure to include bleeding, infection co-pay, stiffness, damage to nerves and vessels, damage to muscles and tendons, malunion, nonunion, hardware prominence, tendon rupture, need for repeat procedures. Despite these risks, the patient elected to proceed. Findings: There is a distal radius fracture which had 2 primary intra-articular parts. It was reduced and fixed with a Synthes volar locking plate. Procedure Description: Tatyana was greeted in the preoperative holding area. The correct patient and site was confirmed and marked. The history and physical was updated. The consent was reviewed the patient and signed. The patient was taken to the PACU for administration of regional anesthetic, supraclavicular block. The patient was taken to the operating room and placed in the supine position. All bony problems were well-padded. The right arm was placed onto a radiolucent hand table. A nonsterile tourniquet was placed high up on the arm. Prophylactic antibiotics in the form of cefazolin were administered. The left arm was prepped with ChloraPrep and draped in a standard fashion. A timeout was performed for safe surgery. A standard longitudinal incision was made overlying the flexor carpi radialis tendon starting at the distal wrist crease and moving proximally. The skin was incised sharply. The flexor carpi radialis tendon and its sheath is identified. The sheath was opened. The tendon was moved ulnarly in the floor of the sheath was incised. Blunt dissection the flexor pollicis longus muscle belly and tendon were also made radially exposing the pronator quadratus and the distal radius. The printer quadratus was elevated with an ulnar-based flap. This exposed the volar distal radius and the fracture. A chowdhury elevator was used for full exposure of the volar surface of the distal radius. The primary fracture line was exposed. Using a series of elevators, curettes, and knife, the fracture was fully debrided of any fibrous tissue and callus formation. I used a freer elevator to help mobilize the fragments. I was able to reduce the primary transverse fracture line with a freer elevator. There was an intra-articular split which was not displaced in the volar segment but appeared to have some displacement of the dorsal?ulnar aspect. Given the apparent reduction I did place a variable angle Synthes distal radius plate onto the dorsal surface and held it there with a distal radius reduction clamp. I went ahead and placed 1 K wire in the distal aspect of the plate and 1 K wire in the proximal portion to help hold relative length and the reduction. Fluoroscopic images were used to confirm adequate reduction. A single nonlocking screw was placed to the distal portion of the plate securing the plate against the bones. Once again, the plate was evaluated to make sure it was aligned appropriately. The single screw was also checked to make sure it was in appropriate positioning for trajectory of future screws. This screw did not have as much purchase I would like and seem to be slightly radial to the dorsal?ulnar segment. Therefore, I placed a second nonlocking screw which had excellent purchase and reducing the plate down to the distal service as well as capturing that distal dorsal?ulnar fracture fragment. The remainder of the screws within the volar locking plate were filled with locking screws. These were made sure not to penetrate the dorsal cortex. Once these were applied the proximal portion of the plate was further reduced down onto the shaft, which further reduce the distal segment. This was held in position with a tightened reduction K wire. Fluoroscopy was then used against confirm appropriate reduction. Nonlocking screws were placed within the 3 shaft screw holes. Final x-rays were obtained which demonstrated adequate reduction and positioning of hardware. The dorsal sunrise view was also obtained to ensure correct sizing of screws. The first nonlocking screw which was placed was removed and treated for a locking screw. The wound was then thoroughly irrigated. The pronator quadratus was reapproximated with a 0 Vicryl. The tourniquet was released and there was no notable vascular injury. The fingers were warm and well-perfused. The deep dermal layer was closed with a 2-0 Vicryl. The skin was closed with 4-0 nylon. The wound was dressed with Xeroform, 4 x 4's, web roll. A short arm splint was applied. At the end the case all counts are correct. Patient was transferred back to the PACU in stable condition.
== END 2022-06-16 10:37 | disposition home or self-care (01) ==
PROVIDERS: PCP Family Medicine; Visit Provider Student in an Organized Health Care Education/Training Program
PROC: (CPT 25608; principal; 2022-06-16 13:30)
DX: S52.571A Other intraarticular fracture of lower end of right radius, initial encounter for closed fracture (principal); E03.9 Hypothyroidism, unspecified; I10 Essential (primary) hypertension; E10.9 Type 1 diabetes mellitus without complications
CPT/HCPCS: 25608; 76942; 73100; J0690; J1100; J2250; J2405

== ENCOUNTER 2022-06-29 14:12 | Outpatient (CLI) | payer MEDICARE, SELFPAY ==
--- NOTE | 2022-06-29 13:45 | DI.RAD_ITS ---
Exam(s) XR WRIST RT LIMITED EXAM: XR WRIST RT LIMITED CLINICAL HISTORY: f/u ORIF R wrist TECHNIQUE: COMPARISON: CR XR WRIST RT COMPLETE from 06/09/2022 CR XR WRIST RT LIMITED from 06/16/2022 FINDINGS: Two views were obtained. Previously described distal radial fracture with plate and screw fixation i s again noted, no gross interval change in alignment of the fracture fragments in comparison with int raoperative films of June 16. IMPRESSION: RADIATION DOSE DELIVERED: Total DLP
== END 2022-06-29 14:13 | disposition home or self-care (01) ==
LOC: DIORS 14:13
PROVIDERS: PCP Family Medicine; Referring Provider Family Medicine; Visit Provider Student in an Organized Health Care Education/Training Program
DX: S52.501D Unspecified fracture of the lower end of right radius, subsequent encounter for closed fracture with routine healing (principal); X58.XXXD Exposure to other specified factors, subsequent encounter
CPT/HCPCS: 73100

== ENCOUNTER 2022-07-27 15:11 | Outpatient (CLI) | payer MEDICARE, SELFPAY ==
--- NOTE | 2022-07-27 14:45 | DI.RAD_ITS ---
Exam(s) XR WRIST RT LIMITED EXAM: XR WRIST RT LIMITED CLINICAL HISTORY: S/P ORIF R DISTAL RADIUS FRACTURE. TECHNIQUE: 2D digital imaging was performed. Three images were obtained. AP, lateral and oblique vi ews were obtained. COMPARISON: CR XR WRIST RT LIMITED from 06/29/2022 FINDINGS: BONES: There are stable post operative changes present. No new fracture or dislocation. JOINTS: Moderately severe degenerative changes are seen at the 1st CMC joint. No joint effusion is p resent. SOFT TISSUE: Normal. IMPRESSION: Stable postoperative changes. DATA REPOSITORY: RADIATION DOSE DELIVERED:
== END 2022-07-27 15:12 | disposition home or self-care (01) ==
LOC: DIORS 15:12
PROVIDERS: PCP Family Medicine; Referring Provider Family Medicine; Visit Provider Student in an Organized Health Care Education/Training Program
DX: S52.501D Unspecified fracture of the lower end of right radius, subsequent encounter for closed fracture with routine healing (principal); X58.XXXD Exposure to other specified factors, subsequent encounter; M18.11 Unilateral primary osteoarthritis of first carpometacarpal joint, right hand; Z47.89 Encounter for other orthopedic aftercare
CPT/HCPCS: 20600; 73100; J1030

== ENCOUNTER 2022-09-07 09:32 | Outpatient (CLI) | payer MEDICARE, SELFPAY ==
--- NOTE | 2022-09-07 15:45 | DI.RAD_ITS ---
Exam(s) XR WRIST RT LIMITED EXAM: XR WRIST RT LIMITED INDICATION: follow up. COMPARISON: CR XR WRIST RT LIMITED from 07/27/2022 TECHNIQUE: 2D digital imaging was performed. Two views. FINDINGS: There has been no change in fracture or hardware alignment. There has been continued healing of the distal radial fracture. Degenerative changes are again noted at the 1st carpal metacarpal joint. DATA REPOSITORY: RADIATION DOSE DELIVERED:
--- OUTSIDE RECORDS SUMMARY | 2022-09-09 09:37 | XMS_ITS | Encounter Summary ---
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 In the past 12 months, has lack of transportation kept you f rom No 04/18/2021 meetings, work, or getting things needed for daily living? Sex Assigned at Date Recorded Female 01/09/2021 10:18 PM EST documented as of this encounter Last Filed Vital Signs Vital Sign Reading Time Taken Comments Blood Pressure 150/89 09/01/2022 10:06 AM EDT Pulse 73 09/01/2022 10:06 AM EDT Temperature 36.5 ??C (97.7 ??F) 09/01/2022 10:06 AM EDT Respiratory Rate - - Oxygen Saturation 99% 09/01/2022 10:06 AM EDT Inhaled Oxygen Concentration - - Weight 64.2 kg (141 lb 9.6 oz) 09/01/2022 10:06 AM EDT Height 170.2 cm (5' 7) 09/01/2022 10:06 AM EDT Body Mass Index 22.18 09/01/2022 10:06 AM EDT documented in this encounter Progress Notes Gustavo Collisn MD - 09/01/2022 10:15 AM EDT Ms. Tatyana Skelton is an 67 y.o. female who presents for ongoing care of Diabetes DINESH (Elevated GAD65 Ab in 2018) Former patient of Dr Callahan and Heather Conte, last seen February 2022 Plan at that time: ?? Plan: Update labs today ?? --Medications: No changes to your insulin dosing Decrease meal time insulin by 20-50% for any meal prior to anticipated exercise following that meal. ?? Trial a looser carb ratio for evening meal of 1:20 to see of this helps prevent low BGs after dinner ?? Administer your meal time insulin 15-20 minutes before meals. Interval history: Notable medical comorbidities: hypothyroid, UC Dx of diabetes age 63 She does take chromium supplement which was recommended by her PCP. Her right eye required a surgical procedure recently to address a macular hole, and she is wearing an eye patch. She also slipped recently and broke her right wrist. She is being treated by her PCP for osteoporosis with fosamax. She has been somewhat less active recently given the wrist fracture and eye surgery. Normally she enjoys kayaking in the warmer months No problems with feet. A full foot exam was performed by Heather Conte BELL STAFF in February and was normal She did slightly deintensify CR with dinner, although she does not always remember to do 1:20 (sometimes does 1:15) and has not had regular hypoglycemia after dinner. Regarding the metformin use, she believes she was initially treated with this when the diagnosis of DINESH was not clear. She has UC but does not have frequent diarrhea/GI upset. Glucose monitoring: Checks glucose at least 5 times daily using freestyle marc. She has occasional midday hyperglycemia. She believes this is related to mid day snacks for which she does not always take humalog Current DM meds Lantus??19??units in am humalog CR 1:15??breakfast and lunch, dinner 1:20. ISF 1:40 for BG >??150 Metformin 1000mg BID Also takes levothyroxine 175 mcg daily takes 6 days per week. This was recently lowered given low TSH. Repeat TSH in March of this year was normal. CV risk reducing meds: Atorvastatin 40 mg Losartan 25 mg Current Outpatient Medications: ??? acetaminophen (Tylenol) 500 mg Tablet, Take 1,000 mg by mouth every 6 hours as needed for Pain.,Disp: , Rfl: ??? alendronate (Fosamax) 70 mg Tablet, Take 70 mg by mouth every 7 days. Take in AM with full glassof water, on an empty stomach. Do not lie down for 30 min. Weekly on Wednesday, Disp: , Rfl: ??? glucagon (Baqsimi) 3 mg/actuation Cashion, Non-Aerosol, 1 each by Nasal route as needed (administer dose into one nostril, may repeat in 15 minutes if no response while awaiting Emergency assistance)., Disp: 2 each, Rfl: 1 ??? BD Ultra-Fine Short Pen Needle 31 gauge x 5/16 Needle, Inject 1 each subcutaneously 4 times daily. ICD 10 Code: E10.9, Disp: 400 each, Rfl: 3 ??? sulfaSALAzine (Azulfidine) 500 mg Tablet, Take 4 tablets by mouth 2 times daily., Disp: 720 tablet, Rfl: 3 ??? Lantus Solostar U-100 Insulin 100 unit/mL (3 mL) pen, Inject 18 Units subcutaneously every morning., Disp: 15 mL, Rfl: 3 ??? humaLOG KwikPen 100 unit/mL Insulin Pen, Inject 1-6 Units subcutaneously 3 times daily (before meals). ICD 10 Code: E10.9, Disp: 15 mL, Rfl: 3 ??? metFORMIN (Glucophage) 500 mg Tablet, Take 2 tablets by mouth 2 times daily (with meals)., Disp:360 tablet, Rfl: 3 ??? OneTouch Verio test strips Strip, Check blood glucose up to 6 times daily as needed as backup for Dexcom. DX: E13.9, Disp: 100 each, Rfl: 3 ??? pyridoxine, Vitamin B6, (Vitamin B6) 50 mg Tablet, Take 50 mg by mouth daily., Disp: , Rfl: ??? Urine Glucose-Ketones Test Strip, 50 each by Misc.(Non-Drug; Combo Route) route as needed (As needed for severe hyperglycemia). Use to test urine for ketones in event of severe hyperglycemia, Disp:50 strip, Rfl: 1 ??? levothyroxine (SYNTHROID) 175 mcg Tablet, Take 1 tablet by mouth daily., Disp: 90 tablet, Rfl: 3 ??? Blood-Glucose Meter,Continuous Misc, by NOT APPLICABLE route., Disp: , Rfl: ??? Blood-Glucose Sensor Device, by NOT APPLICABLE route., Disp: , Rfl: ??? Dexcom G6 Transmitter Device, 1 each by Misc.(Non-Drug; Combo Route) route continuous. Change every 90 days., Disp: 1 Device, Rfl: 3 ??? LORazepam (Ativan) 0.5 mg Tablet, Take 1 tablet by mouth every 6 hours as needed for Anxiety. May also take one by mouth every 6 hours as needed for nausea., Disp: 30 tablet, Rfl: 0 ??? ascorbic acid, vitamin C, (VITAMIN C) 500 mg Tablet, Chewable, Take 500 mg by mouth daily., Disp: , Rfl: ??? vit A/vit C/vit E/zinc/copper (ICAPS AREDS ORAL), Take 2 caplet by mouth daily., Disp: , Rfl: ??? estradioL (ESTRACE) 0.01 % (0.1 mg/gram) Cream, three times a week., Disp: , Rfl: ??? nystatin (MYCOSTATIN) Cream, , Disp: , Rfl: ??? atorvastatin (LIPITOR) 40 mg Tablet, Take 1 tablet by mouth daily., Disp: 90 tablet, Rfl: 3 ??? ONE TOUCH DELICA 33 gauge Misc, 1 each by Misc.(Non-Drug; Combo Route) route 6 times daily., Disp: 600 each, Rfl: 3 ??? losartan (COZAAR) 50 mg Tablet, Take 25 mg by mouth daily., Disp: , Rfl: 3 ??? Chromium Picolinate 200 mcg Tablet, Take 200 mcg by mouth daily., Disp: , Rfl: ??? multivitamin (THERAGRAN) Tablet, Take 1 tablet by mouth daily., Disp: , Rfl: ??? Calcium Carbonate-Vitamin D3 600 mg(1,500mg) -400 unit Capsule, Take by mouth daily., Disp: , Rfl: ??? atenolol (TENORMIN) 25 mg tablet, , Disp: , Rfl: Past Medical History: Diagnosis Date ??? History of diverticulitis 09/17/2014 ??? HTN (hypertension) ??? Hypothyroidism ??? Malignant neoplasm of upper-outer quadrant of right breast in female, estrogen receptor negative01/03/2021 ??? UC (ulcerative colitis) 09/11/2013 Patient Active Problem List Diagnosis ??? Malignant neoplasm of upper-outer quadrant of right breast in female, estrogen receptor negative ??? History of diverticulitis ??? UC (ulcerative colitis) Overview Note: ?? dx 1985 ?? Last colonoscopy 06/27/15 - Very mildly active ulcerative colitis limited to a small segment of the sigmoid colon. External hemorrhoids. Moderate diverticulosis in the sigmoid colon. The examined portion of the ileum was normal. Biopsies for surveillance for dysplasiawere negative. ?? Colonoscopy 10/2013 - segmental area of moderately erythematous and thickened mucosa was found inthe sigmoid colon. Biopsies negative. ?? CT [facility] 07/[facility]/13 ( [facility] : Thickening of the wall of the mid sigmoid colonwith pericolonic infiltration and reactive adenopathy. Trace amount of pelvic and abdominal free fluid. ..... ?? Prednisone remotely in the past x2 with flare up , last use about 22 years ago. ?? Sulfasalazine 2500 mg daily - increased to 4 g daily 08/2013. ??? HTN (hypertension) ??? Hypothyroidism Physical Exam: Patient Vitals for the past 24 hrs: Temp Pulse BP SpO2 09/01/22 1006 36.5 ??C (97.7 ??F) 73 150/89 99 % BP 128/82 on recheck General: no acute distress, pleasant, sitting comfortably Face: wearing mask Neck: no supraclavicular fat pads; trachea midline Respiratory: symmetrical chest expansion, breathing comfortably on room air Musculoskeletal: moving all 4 extremities normally; normal female musculature Neurological: no tremors Psychological: alert/oriented to person, place, time; normal affect; memory intact; normal judgement/insight Radiology Studies: Laboratory Data: April 23, 2022 9:09 am Thyroid Stimulating Hormone (TSH) 1.06 uIU/mL Component Latest Ref Rng & Units 03/05/2022 U Albumin Conc, Random mg/L 12.9 U Creatinine mg/dL 55 Creatinine 0.70 - 1.20 mg/dL 0.64 (L) Estimated GFR >=60 mL/min/1.73 m?? 93 Assessment / Plan: 1) Diabetes Mellitus DINESH, well controlled Other than occasional midday hyperglycemia related to snacks, glycemic control is excellent. Suggested she try to consume larger meals rather than having midmeal snacks to better account for the carbs with humalog insulin which she will try to do It is not clear that metformin is playing a significant role in her glycemic control given her normal weight, and given her history of UC it would be better to taper off if possible. Suggested she reduce to 1000mg daily and if glycemic control still excellent, stop altogether. If fasting glucose risesabove 140, ok to add 1-2 units lantus as needed to bring fasting glucose level down to 90-140 2) hypothyroid: recent March 2022 TSH normal so levothyroxine dose is appropriate, repeat at next visit Labs: she will get routine labs today Orders Placed This Encounter Procedures ??? Hemoglobin A1c ??? Lipid Panel (Reflex Direct LDL) Time statement: I spent 40 total minutes on this visit today exclusive of CGM interpretation time. The time was spent face to face with the patient, on chart review and documentation, ordering labs/studies and coordination of care Return to clinic 6 months to see Diabetes BELL STAFF/PA Gustavo Collins MD Headline Writerbranch maker Endocrinology Section [facility] Gustavo Collins MD - 09/01/2022 10:15 AM EDT Images from the original note were not included. Continuous Glucose Monitoring (CGM) Interpretation I reviewed 72 hours + of Stancee CGM data. There is a trend for occasional midday hyperglycemia that occurs in setting of midday snack documented in this encounter Plan of Treatment Upcoming Encounters Date Type Specialty Care Team Description 10/15/2022 Office Visit Hematology and Oncology Aldo Gaming MD [facility] H[facility] DE[facility]. [place] [id number] (Wo rk) documented as of this encounter Goals Goal Patient Goal Associated Recent Patient-Stated? Author Type Problems Progress DH Home Medication Patient No Ken bailey, Compliance and Facing Kayla Lopez, Understanding Action Plan [facility] Note: Formatting of this note might be d ifferent from the original. Prevent / slow progression of disease as assessed by labs and scans in clinic every 3 months or more often when indicated documented as of this encounter Procedures Procedure Name Priority Date/Time Associated Diagnosis Comme nts HC HEMOGLOBIN A1C STAT 09/01/2022 10:55 AM DINESH (latent Res ults for this EDT autoimmune diabetes procedur e are in in adults), managed the resu lts as type 1 section. HC VENIPUNCTURE Routine 09/01/2022 10:55 AM DINESH (latent Resul ts for this EDT autoimmune diabetes procedur e are in in adults), managed the resu lts as type 1 section. documented in this encounter Results Lipid Panel (Reflex Direct LDL) (09/01/2022 10:55 AM EDT) athologist Signature Chol, Total 137 mg/dL [facility] Comment: Lower Risk: <200 mg/dL Average Risk: 200-239 mg/dL Higher Risk: >ss=696 mg/dL Triglycerides 82 mg/dL [facility] Comment: Average Risk/Lower Risk: <150 mg/dL Borderline High Risk: 150-199 mg/dL High Risk: 200-499 mg/dL Very High Risk: >xe=511 mg/dL HDL 88 mg/dL [facility] Comment: Males: ?? Higher Risk: <40 mg/dL Females: ?? Higher Risk: <50 mg/dL LDL Cholesterol 33 mg/dL [facility] Comment: Lowest Risk: <100 mg/dL Lower Risk: 100-129 mg/dL Borderline High Risk: 130-159 mg/dL High Risk: 160-189 mg/dL Very High Risk: >nr=042 mg/dL Chol/HDL Ratio 1.6 ratio [facility] Lipid Interpretation See Note [facility] Comment: Lipid management should be guided by a p atient? s ASCVD risk, goals and preferences. ACC/AHA Guidelines recommend high intens ity statin if clinical ASCVD or LDL greater than or equal to 190 mg/dL. [email or web address]/VHE-LZK-[email or web address] Adults aged 40-75 with LDL 70-189 mg/dL should have their 10 year ASCVD risk estimated with the ACC/AHA ASCVD risk es timator http://tools.acc.org/ROFFU-Jmdt-Etnfprvn r/ Statin should be discussed if risk great er than or equal to 7.5% in non-diabetics. With diabetes, moderate i ntensity statin is recommended if risk less than 7.5%, high intensity if risk g reater than or equal to 7.5%. Annual lipid monitoring on statins is no t necessary. Evaluate secondary causes of Triglycerid es greater than 500 mg/dL or LDL greater than 190 mg/dL: See table 6 of A CC/AHA Guideline. Lifestyle modification is a critical com ponent of ASCVD risk reduction. Specimen Anatomical Collection Method Collection Time Receive d Time (Source) Location / / Volume Laterality Blood 09/01/2022 10:55 09/01/2022 AM EDT 11:01 AM EDT Resulting Agency Comment Spec In Lab Gustavo Collins MD CHEMISTRY ORDERABLES Performing Organization Address City/State/[place] [address] Hemoglobin A1c (09/01/2022 10:55 AM EDT) athologist Signature Hemoglobin A1C 4.7 4.3 - 5.6 [facility] Comment: Reference Range: 4.3 - 5.6% 5.7 - 6.4% - Increased Risk of Developin g Diabetes Mellitus >= 6.5% - Consistent with diagnosis of D iabetes Mellitus In the absence of hyperglycemia (i.e. pl asma glucose > 200 mg/dL) or classic symptoms of hyperglycemia a repeat measu rement of HbA1c should be performed on a separate sample to confirm the diagnos is. Diagnosis and Classification of Diabetes Mellitus, Diabetes Care 2013; 36: Suppl. 1, S67-74 Est Avg Gluc 89 mg/dL [facility] Comment: eAG equivalents for HbA1c percentages: HbA1c(%) ?eAG(mg/dL) 6.0 ?126 6.5 ?140 7.0 ?154 7.5 ?169 8.0 ?183 8.5 ?197 9.0 ?212 9.5 ?226 10.0 ? 240 Limitations: The eAG calculation has not been validated on women, individuals below 18 years old and above 70 years old, and individuals with hemoglobinopathies. Additional resources are available on [facility] ADA website. David FONTANEZ, Ethan J, Luis Felipe R, et al. ??Tr anslating the A1C assay into estimated average glucose values. ??Diabetes Care 2008:31(8):8519-9559. 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
--- OUTSIDE RECORDS SUMMARY | 2022-09-09 09:37 | XMS_ITS | Encounter Summary ---
:1955 Author Organization [facility] [place] [address] Care Team Providers Name Role Phone None Primary Care Provider Unavailable Reason for Visit Reason Comments Specialty Refill Management Encounter Details Date Type Department Care Team Description 09/29/2021 Specialty Pharmacy Pharmacy at [facility] Nargis Wiseman Specialty Refill [facility] [place], [place] [id number] Social History Tobacco Use Types Packs/Day Years [...] PM EST documented as of this encounter Progress Notes Kayla Jorge RPH - 09/29/2021 1:35 PM EDT Clinical Management Plan: Refill Specialty Pharmacy Consultation; Kayla Jorge RPH Comprehensive Medication Management (CMM) Tatyana Skelton Ms. Tatyana Skelton is a 66 y.o. (1955) female who was contacted in regard to a specialty medication refill reminder. Contact made with patient regarding Capecitabine. A review of the medication therapy was performed. The medication was refilled as scheduled, and all medication related questions and concerns were addressed. The specialty pharmacy staff will follow up with the patient 5-7 days prior to next refill. Was a change made to the Care Plan: yes - dose reduced per clinic staff for hand/foot syndrome If yes, should the medication be held: No Assessment and Recommendations: Title Type of Medication Management: chronic disease management Recipient: beneficiary Provider: plan sponsor pharmacist Method of Contact: by telephone Cognitive Ability: good Cognitive Impairment Status Verified this Year: no Allergies and Drug intolerance: Allergies Allergen Reactions ??? Contrast [Iodine And Iodide Containing Products] Nausea And Vomiting and Other (See Comments) Neck swelling ??? Lisinopril Other (See Comments) Caused a dry cough ??? Lactose Diarrhea Medication Reconciliation Discrepancies (compared to [facility] med list) none Specialty Pharmacy Refill Questionnaire Refill Questionnaire 09/29/2021 What is the name of the specialty medication you are refilling? Capecitabine Are you taking any new medications? No Any new medical condition? No Any new allergies? No Any missed doses since your last fill? No Any new side effects that are bothersome? Yes Please explain Has skin peeling on feet. No questions fro [facility]. What date will you need this fill by? 10/03/2021 Adherence: Specialty Med Adherence Patient Demonstrates Understanding of Importance of Adherence: Yes Educational Information or Adherence Tools Provided: Yes Patient Reported X Missed Doses in the Last Month: 0 Provider-Estimated Medication Adherence Level: 90-100% Adherence Tools Used: alarm Pt understands no changes to current drug regimen were made at the appointment and that [facility] is providing recommendations (summary located at top of note) for provider review and follow up. Kayla Jorge RPH 09/29/21 1:45 PM documented in this encounter Plan of Treatment Upcoming Encounters Date Type Specialty Care Team Description 10/15/2022 Office Visit Hematology and Oncology Aldo Gaming MD [facility] H[facility] DE[facility]. [place], [place] [address] (Wo rk) documented as of this encounter Goals Goal Patient Goal Associated Recent Patient-Stated? Author Type Problems Progress DH Home Medication Patient No Ken bailey, Compliance and Facing Kayla Lopez, Understanding Action Plan [facility] Note: Formatting of this note might be d ifferent from the original. Prevent / slow progression of disease as assessed by labs and scans in clinic every 3 months or more often when indicated documented as of this encounter Visit Diagnoses Not on filedocumented in this encounter Care Teams Oral And Maxillofacial Surgery Relationship Specialty Start Date End Date None PCP - General 06/11/21 04/02/22 None documented as of this encounter
--- OUTSIDE RECORDS SUMMARY | 2022-09-09 09:37 | XMS_ITS | Encounter Summary ---
:1955 Author Organization [facility] [place] [address] Care Team Providers Name Role Phone None Primary Care Provider Unavailable Reason for Visit Reason Onset Date Comments Medication Refill 03/23/2022 Encounter Details Date Type Department Care Team Description 03/23/2022 Refill Gastroenterology at [facility] Marily Guillermo MD [facility] [place] [address] GASTROENTEROLOGY DEPT. [phone] [place], [place] [address] (Wo rk) Social History Tobacco Use Types Packs/Day Years [...] PM EST documented as of this encounter Plan of Treatment Upcoming Encounters Date Type Specialty Care Team Description 10/15/2022 Office Visit Hematology and Oncology Aldo Gaming MD [facility] HEMAT[facility] DE[facility]. [place], [place] [address] (Wo rk) documented as of this encounter Goals Goal Patient Goal Associated Recent Patient-Stated? Author Type Problems Progress DH Home Medication Patient No Ken bailey, Compliance and Facing Kayla Lopez, Understanding Action Plan [facility] Note: Formatting of this note might be d ifferent from the original. Prevent / slow progression of disease as assessed by labs and scans in clinic every 3 months or more often when indicated documented as of this encounter Visit Diagnoses Not on filedocumented in this encounter Care Teams Customer Service Consultant Relationship Specialty Start Date End Date None PCP - General 06/11/21 04/02/22 None documented as of this encounter
--- OUTSIDE RECORDS SUMMARY | 2022-09-09 09:37 | XMS_ITS | Encounter Summary ---
:1955 Author Organization [facility] [address] Care Team Providers Name Role Phone None Primary Care Provider Unavailable Reason for Visit Reason Onset Date Comments Medication Refill 03/23/2022 Encounter Details Date Type Department Care Team Description 03/23/2022 Refill Gastroenterology at [facility] Marily Guillermo MD [facility] [place] [address] GASTROENTEROLOGY DEPT. [phone] [place], [place] [address] (Wo rk) Social History Tobacco [...] Visit Hematology and Oncology Aldo Gaming MD [facility] HEMATOLOGY/[facility] DEPT. [place], [place] [address] (Wo rk) documented as of this encounter Goals Goal Patient Goal Associated Recent Patient-Stated? Author Type Problems Progress DH Home Medication Patient No Ken bailey, Compliance and Facing Kayla Lopez, Understanding Action Plan [facility] Note: Formatting of this note might be d ifferent from the original. Prevent / slow progression of disease as assessed by labs and scans in clinic every 3 months or more often when indicated documented as of this encounter Visit Diagnoses Not on filedocumented in this encounter Care Teams Merchandise Shopper Relationship Specialty Start Date End Date None PCP - General 06/11/21 04/02/22 None documented as of this encounter
--- OUTSIDE RECORDS SUMMARY | 2022-09-09 09:37 | XMS_ITS | Encounter Summary ---
:1955 Author Organization [facility] Address [facility] [place] [address] Care Team Providers Name Role Phone None Primary Care Provider Unavailable Encounter Details Date Type Department Care Team Description 12/11/2021 Orders Only Endocrinology at [facility] Heather Sidhu Type 1 diabetes [facility] G, FITNESS WORKER mellitus without Drive [facility] [place] [address] ENDOCRINOLOGY [place] [id number] Social History Tobacco Use Types Packs/Day Years [...] Visit Hematology and Oncology Aldo Gaming MD [facility] ER HEMATOLOGY/[facility] DEPT. [place], [place] [address] (Wo rk) documented as of this encounter Goals Goal Patient Goal Associated Recent Patient-Stated? Author Type Problems Progress DH Home Medication Patient No Ken bailey, Compliance and Facing Kayla Lopez, Understanding Action Plan [facility] Note: Formatting of this note might be d ifferent from the original. Prevent / slow progression of disease as assessed by labs and scans in clinic every 3 months or more often when indicated documented as of this encounter Visit Diagnoses Diagnosis Type 1 diabetes mellitus without complic ation Type I (juvenile type) diabetes mellitus without mention of complication, not stated as uncontrolled documented in this encounter Care Teams Secy Relationship Specialty Start Date End Date None PCP - General 06/11/21 04/02/22 None documented as of this encounter
--- OUTSIDE RECORDS SUMMARY | 2022-09-09 09:37 | XMS_ITS | Encounter Summary ---
:1955 Author Organization [facility] [place] [address] Care Team Providers Name Role Phone None Primary Care Provider Unavailable Encounter Details Date Type Department Care Team Description 09/08/2021 Specialty Pharmacy Pharmacy at [facility] Tori Robles [facility] [place] [address] Social History Tobacco Use Types Packs/Day Years [...] Visit Hematology and Oncology Aldo Gaming MD [facility] HEMATOLOGY/[facility] DEPT. [place], [place] [address] (Wo rk) documented as of this encounter Goals Goal Patient Goal Associated Recent Patient-Stated? Author Type Problems Progress Home Medication Patient No Ken bailey, Compliance and Facing Kayla E, Understanding Action Plan [facility] Note: Formatting of this note might be d ifferent from the original. Prevent / slow progression of disease as assessed by labs and scans in clinic every 3 months or more often when indicated documented as of this encounter Visit Diagnoses Not on filedocumented in this encounter Care Teams Power Shovel Mechanic Relationship Specialty Start Date End Date None PCP - General 06/11/21 04/02/22 None documented as of this encounter
--- OUTSIDE RECORDS SUMMARY | 2022-09-09 09:37 | XMS_ITS | Encounter Summary ---
:1955 Author Organization [facility] [place] [address] Care Team Providers Name Role Phone None Primary Care Provider Unavailable Encounter Details Date Type Department Care Team Description 03/05/2022 Orders Only Endocrinology at [facility] Heather Sidhu Hypothyroidism, [facility] G, [place] [id number] ENDOCRINOLOGY [place] [id number] Social History Tobacco Use Types Packs/Day Years [...] Visit Hematology and Oncology Aldo Gaming MD [facility] HEMATOLOGY/[facility] DEPT. [place], [place] [address] (Wo rk) documented as of this encounter Goals Goal Patient Goal Associated Recent Patient-Stated? Author Type Problems Progress DH Home Medication Patient No Ken bailey, Compliance and Facing Kayla Lopez, Understanding Action Plan [facility] Note: Formatting of this note might be d ifferent from the original. Prevent / slow progression of disease as assessed by labs and scans in clinic every 3 months or more often when indicated documented as of this encounter Visit Diagnoses Diagnosis Hypothyroidism, unspecified type documented in this encounter Care Teams Belt Press Operator Relationship Specialty Start Date End Date None PCP - General 06/11/21 04/02/22 None documented as of this encounter
--- OUTSIDE RECORDS SUMMARY | 2022-09-09 09:37 | XMS_ITS | Encounter Summary ---
:1955 Author Organization [facility] Address [address] [place] [address] Care Team Providers Name Role Phone None Primary Care Provider Unavailable Reason for Visit Reason Onset Date Comments Medication Refill 11/13/2021 Refill Capecitabine, no changes Encounter Details Date Type Department Care Team Description 11/13/2021 Telephone Hematology Oncology at [facility], Medication Refill [facility] RN (Refill Capecitabine, [address] no changes) [place] [id number] Social History Tobacco Use Types Packs/Day Years [...] PM EST documented as of this encounter Miscellaneous Notes Telephone Encounter - [facility], RN - 11/13/2021 3:32 PM EST Oral Chemotherapy Rx Refill Note (No Rx Change) 11/13/2021 Tatyana Skelton, 1955 Prescription for oral chemotherapy Capecitabine was written by provider without any changes and e-prescribed to [facility] pharmacy to be filled. Notice of this refill has been given during office visit to patient. The patient understands that this medication will be delivered to the home (instructed to call nurseif he/she does not hear from the pharmacy regarding delivery). documented in this encounter Plan of Treatment Upcoming Encounters Date Type Specialty Care Team Description 10/15/2022 Office Visit Hematology and Oncology Aldo Gaming MD [facility] H[place]OLOGY[place] [address] (Wo rk) documented as of this encounter Goals Goal Patient Goal Associated Recent Patient-Stated? Author Type Problems Progress DH Home Medication Patient No Ken ds, Compliance and Facing Kayla Lopez, Understanding Action Plan [facility] Note: Formatting of this note might be d ifferent from the original. Prevent / slow progression of disease as assessed by labs and scans in clinic every 3 months or more often when indicated documented as of this encounter Visit Diagnoses Not on filedocumented in this encounter Care Teams Contact Clerk Relationship Specialty Start Date End Date None PCP - General 06/11/21 04/02/22 None documented as of this encounter
--- OUTSIDE RECORDS SUMMARY | 2022-09-09 09:37 | XMS_ITS | Encounter Summary ---
:1955 Author Organization [facility] [place] [address] Care Team Providers Name Role Phone Mely Solano MD Primary Care Provider Encounter Details Date Type Department Care Team Description 08/06/2022 Surgery Gastroenterology at [facility] Brett Treviño, COLONOSCOPY FLEXIBLE, [facility] Rubin velazquez MD WITH BX (WRVU 3.66) [place] [address] [facility] [phone] [place], [place] [address] Social History Tobacco Use Types [...] Sign Reading Time Taken Comments Blood Pressure 131/73 08/06/2022 10:20 AM EDT Pulse 76 08/06/2022 10:10 AM EDT Temperature 36.7 ??C (98.1 ??F) 08/06/2022 9:04 AM EDT Respiratory Rate 16 08/06/2022 10:20 AM EDT Oxygen Saturation 100% 08/06/2022 10:25 AM EDT Inhaled Oxygen Concentration - - Weight 63.5 kg (140 lb) 08/06/2022 9:04 AM EDT Height 170.2 cm (5' 7) 08/06/2022 9:04 AM EDT Body Mass Index 21.93 08/06/2022 9:04 AM EDT documented in this encounter Medications at Time of Discharge Medication Sig Dispensed Refills Start Date End Date acetaminophen Take 1,000 mg by mouth 0 (Tylenol) 500 mg every 6 hours as Tablet needed for Pain. alendronate (Fosamax) Take 70 mg by mouth every 7 days. Take in AM with full glass of water, on an empty stomach. Do not lie down for 30 min. 0 70 mg Tablet Weekly on Wednesday glucagon (Baqsimi) 3 1 each by Nasal route 2 each 1 05/30 mg/actuation [place], as needed (administer Non-Aerosol dose into one nostril, may repeat in 15 minutes if no response while awaiting Emergency assistance). BD Ultra-Fine Short Inject 1 each 400 each 3 04/07/2022 Pen Needle 31 gauge x subcutaneously 4 times 04/13 Needle daily. ICD 10 Code: E10.9 sulfaSALAzine Take 4 tablets by 720 tablet 3 03/23/2022 (Azulfidine) 500 mg mouth 2 times daily. Tablet Lantus Solostar U-100 Inject 18 Units 15 mL 3 2 Insulin 100 unit/mL (3 subcutaneously every mL) pen morning. humaLOG KwikPen 100 Inject 1-6 Units 15 mL 3 03/20/2022 unit/mL Insulin Pen subcutaneously 3 times daily (before meals). ICD 10 Code: E10.9 metFORMIN (Glucophage) Take 2 tablets by 360 tablet 3 2021 500 mg mouth 2 times daily TabletIndications: (with meals). Type 1 diabetes mellitus without complication OneTouch Verio test Check blood glucose up 100 each 3 11/2020 strips Strip to 6 times daily as needed as backup for Dexcom. DX: E13.9 pyridoxine, Vitamin Take 50 mg by mouth 0 B6, (Vitamin B6) 50 mg daily. Tablet Urine Glucose-Ketones 50 each by 50 strip 1 09/11/2021 Test Strip [facility].(Non-Drug; Combo Route) route as needed (As needed for severe hyperglycemia). Use to test urine for ketones in event of severe hyperglycemia Blood-Glucose by NOT APPLICABLE 0 03/05/2021 Meter,Continuous Misc route. Blood-Glucose Sensor by NOT APPLICABLE 0 03/05/20 Device route. Dexcom G6 Transmitter 1 each by 1 Device 3 03/12/2021 DeviceIndications: Misc.(Non-Drug; Combo DINESH (latent Route) route autoimmune diabetes in continuous. Change adults), managed as every 90 days. type 1 LORazepam (Ativan) 0.5 Take 1 tablet by mouth 30 tablet 0 0 01/16/2021 mg TabletIndications: every 6 hours as Malignant neoplasm of needed for Anxiety. upper-outer quadrant May also take one by of right breast in mouth every 6 hours as female, estrogen needed for nausea. receptor negative ascorbic acid, vitamin Take 500 mg by mouth 0 C, (VITAMIN C) 500 mg daily. Tablet, Chewable vit A/vit C/vit Take 2 caplet by mouth 0 E/zinc/copper (ICAPS daily. AREDS ORAL) estradioL (ESTRACE) three times a week. 0 020 0.01 % (0.1 mg/gram) Cream nystatin (MYCOSTATIN) 0 02/17/2020 Cream atorvastatin (LIPITOR) Take 1 tablet by mouth 90 tablet 3 1 40 mg Tablet daily. ONE TOUCH DELICA 33 1 each by 600 each 3 01/18/2019 gauge [facility] Misc.(Non-Drug; Combo Route) route 6 times daily. losartan (COZAAR) 50 Take 25 mg by mouth 3 2017 mg Tablet daily. Chromium Picolinate Take 200 mcg by mouth 0 200 mcg Tablet daily. multivitamin Take 1 tablet by mouth 0 (THERAGRAN) Tablet daily. Calcium Take by mouth daily. 0 Carbonate-Vitamin D3 600 mg(1,500mg) -400 unit Capsule atenolol (TENORMIN) 25 0 03/07/2010 mg tablet levothyroxine Take 1 tablet by mouth 90 tablet 3 08/14/2021 09/03/2022 (SYNTHROID) 175 mcg daily. TabletIndications: Acquired hypothyroidism documented as of this encounter H&P Notes Brett Treviño MD - 08/06/2022 9:22 AM EDT Patient Name: Tatyana Skelton Patient Age: 67 y.o. Birthdate: 1955 Admit date: 08/06/2022 Attending Physician: Brett Treviño MD Gastroenterology and Hepatology Pre-Procedure History and Physical Exam Procedure: Colonoscopy: Indication: ulcerative colitis surveillance Patient Active Problem List Diagnosis Code ??? UC (ulcerative colitis) K51.90 ??? HTN (hypertension) I10 ??? Hypothyroidism E03.9 ??? History of diverticulitis Z87.19 ??? Malignant neoplasm of upper-outer quadrant of right breast in female, estrogen receptor [id number], Z17.1 EXAM: HEENT: Airway examined, oropharynx clear Mallampati Score: II (soft palate, uvula, fauces visible) LUNGS: Clear to auscultation HEART: Regular rate and rhythm, normal S1, S2 ABDOMEN: Normal bowel sounds, soft, non tender, non distended, A/P Proceed with the planned endoscopic procedure. ASA 2 - Patient with mild systemic disease with no functional limitations Sedation Plan: moderate (conscious sedation) Risks and benefits of the procedure explained to the patient. Consent signed. documented in this encounter Plan of Treatment Upcoming Encounters Date Type Specialty Care Team Description 10/15/2022 Office Visit Hematology and Oncology Aldo Gaming MD [facility]OLOGY[facility] [place] [facility] (Wo rk) documented as of this encounter Goals Goal Patient Goal Associated Recent Patient-Stated? Author Type Problems Progress DH Home Medication Patient No Ken ds, Compliance and Facing Kayla Lopez, Understanding Action Plan [facility] Note: Formatting of this note might be d ifferent from the original. Prevent / slow progression of disease as assessed by labs and scans in clinic every 3 months or more often when indicated documented as of this encounter Procedures Procedure Name Priority Date/Time Associated Comments Diagnosis SPECIMEN TO PATHOLOGY Routine 08/06/2022 10:02 Re sults for this AM EDT procedure are i n the results section. SPECIMEN TO PATHOLOGY Routine 08/06/2022 10:02 Re sults for this AM EDT procedure are i n the results section. SPECIMEN TO PATHOLOGY Routine 08/06/2022 10:02 Re sults for this AM EDT procedure are i n the results section. SPECIMEN TO PATHOLOGY Routine 08/06/2022 10:02 Re sults for this AM EDT procedure are i n the results section. SURGICAL PATHOLOGY Routine 08/06/2022 9:48 AM Res ults for this REPORT EDT procedure are i n the results section. COLONOSCOPY FLEXIBLE, 08/06/2022 9:23 AM [place] in 3 yea rs for WITH BX (WRVU 3.66) EDT IBD surveillance. COLONOSCOPY Routine 08/06/2022 9:14 AM Results f or this EDT procedure are i n the results section. documented in this encounter Results Specimen to Pathology (08/06/2022 10:02 AM EDT) Specimen Anatomical Collection Method Collection Time Receive d Time (Source) Location / / Volume Laterality AP Specimen 08/06/2022 10:02 08/06/2022 AM EDT 10:02 AM EDT Narrative [facility] [place] 08/06/2022 10:02 AM EDT Specimen requisition ordered. ??Separate Pathology report to follow Brett Treviño MD PATHOLOGY/CYTOLOGY ORDERABLE S Performing Organization Address City/State/[place] [address] Specimen to Pathology (08/06/2022 10:02 AM EDT) Specimen Anatomical Collection Method Collection Time Receive d Time (Source) Location / / Volume Laterality AP Specimen 08/06/2022 10:02 08/06/2022 AM EDT 10:02 AM EDT Narrative [facility] [place] 08/06/2022 10:02 AM EDT Specimen requisition ordered. ??Separate Pathology report to follow Brett Treviño MD PATHOLOGY/CYTOLOGY ORDERABLE S Performing Organization Address City/[facility]/[place] [address] Specimen to Pathology (08/06/2022 10:02 AM EDT) Specimen Anatomical Collection Method Collection Time Receive d Time (Source) Location / / Volume Laterality AP Specimen 08/06/2022 10:02 08/06/2022 AM EDT 10:02 AM EDT Narrative [facility] OR - 08/06/2022 10:02 AM EDT Specimen requisition ordered. ??Separate Pathology report to follow Brett Treviño MD PATHOLOGY/CYTOLOGY ORDERABLE S Performing Organization Address City/State/ZIP Code Phon e Number [address] Specimen to Pathology (08/06/2022 10:02 AM EDT) Specimen Anatomical Collection Method Collection Time Receive d Time (Source) Location / / Volume Laterality AP Specimen 08/06/2022 10:02 08/06/2022 AM EDT 10:02 AM EDT Narrative [facility] [place] 08/06/2022 10:02 AM EDT Specimen requisition ordered. ??Separate Pathology report to follow Brett Treviño MD PATHOLOGY/CYTOLOGY ORDERABLE S Performing Organization Address City/[facility]/ZIP Code Phon e Number [address] Surgical Pathology Report (08/06/2022 9:48 AM EDT) Component Value Ref Test Analysis Performed At [facility] Range Method Time Signature Surgical [id number] ? Location: 4; [facility]; A [facility] Report The signing pathologist has (i) examined the relevant preparation(s) for the [facility] specimen(s) and (ii) rendered or confirmed the diagnosis(es) . HOSPITAL LABORATORY . ?Surgic al Pathology DIAGNOSIS A - Right colon biopsies, biopsy: - ??Colonic mucosa within normal limits. - ??There is no evidence of dysplasia. B - Transverse colon biopsies, biopsy: - ??Colonic mucosa within normal limits. - ??There is no evidence of dysplasia. C - Descending colon biopsies, biopsy: - ??Colonic mucosa within normal limits. - ??There is no evidence of dysplasia. D - Recto sigmoid colon biopsies, biopsy: - ??Inactive chronic colitis. - ??There is no evidence of dysplasia. Electronically signed by: ?Jen MCGINNIS PhD, Jael Verified: ??08/10/2022 13:19 ??Pathologist Performed at: ??-[facility] Dept. of Pathology, [place], [place] SPECIMEN(S) SUBMITTED A - Right colon biopsies, biopsy (4) B - Transverse colon biopsies, biopsy (4) C - Descending colon biopsies, biopsy (4) D - Recto sigmoid colon biopsies, biopsy (4) CLINICAL INFORMATION History of ulcerative colitis. SPECIMEN PROCESSING A - Labeled/Fixative: Right colon biopsies, formalin. Quantity/Size: Multiple, averaging 0.3 cm. Tissue Description: Soft, wilkerson-pink tissues. Sections/Processing: Submitted en toto ??in 2 cassettes labeled A1-A2. B - Labeled/Fixative: Transverse colon biopsies, formalin. Quantity/Size: Multiple, ranging from 0.3-0.5 cm. Tissue Description: Soft, wilkerson-pink tissues. Sections/Processing: Submitted en toto ??in 2 cassettes labeled B1-B2. C - Labeled/Fixative: Descending colon biopsies, formalin. Quantity/Size: Six, 5 cm. Tissue Description: Soft, wilkerson-pink tissues. Sections/Processing: Submitted en toto ??in 2 cassettes labeled C1-C2. D - Labeled/Fixative: Patient demographics, formalin. Quantity/Size: Multiple, ranging from 0.2-0.4 cm. . SPECIMEN PROCESSING Tissue Description: Soft, wilkerson-pink tissues. Sections/Processing: Submitted en toto ??in 2 cassettes labeled D1-D2. ??jnr Specimen (Source) Anatomical Collection Method Collection Time Re ceived Time Location / / Volume Laterality 08/06/2022 9:48 AM EDT Brett Treviño MD PATHOLOGY/CYTOLOGY ORDERABLE S Performing Organization Address City/State/[place] [address] COLONOSCOPY (08/06/2022 9:14 AM EDT) [facility] Method Time Signature COLONOSCOPY [facility] Endoscopy Procedure Date: 08/06/2022 9:14 AM ? Patient Name: Tatyana Skelton ? Date of : 1955 ? Age: 67 ? Order #: [id number] ? Instrument Name: [id number] ? Procedure: ? Colonoscopy Indications: ? High risk colon cancer ? surveillance: Ulcerative p ancolitis ? of 8 (or more) years durat ion. UC ? in clinical remission. Providers: ? Brett Treviño, Yadira Guo, ? Shashi Cramer Referring MD: ?Mely Solano MD Medicines: ? Midazolam 4.5 mg IV, Fentanyl 1 50 ? micrograms IV Complications: ? No immediate complications. Procedure: ? Pre-Anesthesia Assessment: ? - See the other procedure note for ? documentation of the pre-p rocedure ? assessment. ? The procedure, indications , ? benefits, risks and altern atives ? were explained to the dejuan ent. ? Specifically discussed wer e ? potential complications in cluding, ? but not limited to, mariana lees, ? perforation, infection, mi ssing a ? cancer, and adverse medica tion ? reactions. The patient was placed ? in the left lateral decubi tus ? position, and a digital re ctal exam ? was performed. The Colonos cope was ? inserted in the anus and u nder ? direct visualization, adva nced to 8 ? cm into the ileum. Careful ? inspection was made as the ? colonoscope was withdrawn. The ? colonoscopy was performed without ? difficulty. The patient to lerated ? the procedure well. The qu ality of ? the bowel preparation was evaluated ? using the BBPS ([place] el ? Preparation Scale) with sc ores of: ? Right Colon = 3, Transvers e Colon = ? 3 and Left Colon = 3 (enti re mucosa ? seen well with no residual ? staining, small fragments of stool ? or opaque liquid). The tot al BBPS ? score equals 9. 10 minute ? withdrawal time. ? Findings: ? The colon (entire examined portion) appeared normal. ? Biopsies were taken with a cold forceps for histology . ? External and internal hemorrhoids were found during ? retroflexion and during perianal exam. The ? hemorrhoids were small. ? The terminal ileum appeared normal. ? Moderate Sedation: ? I was present during the intraservice time as ? documented by the sedation RN. Impression: ?- The entire examined colon is ? normal. Biopsied. ? - No evidence of active in flammation ? - 8 biopsies from each sec tion; ? right colon, transverse co alonzo, ? descending colon and recto sigmoid. ? - External and internal he morrhoids. ? - The examined portion of the ileum ? was normal. Recommendation: ?- Discharge patient to home. ? - Patient has a contact nu namita ? available for emergencies. The ? signs and symptoms of pote ntial ? delayed complications were ? discussed with the patient . Return ? to normal activities seamus zamora. ? Written discharge instruct ions were ? provided to the patient. ? - Discharge patient to rod e. ? - No recent IBD clinic fol low-up - ? please contact them to rec onnect. ? Attending Participation: ? I personally performed the entire procedure. ? Brett Treviño Brett Treviño, 08/06/2022 10:06:54 AM Number of Addenda: 0 Note Initiated On: 08/06/2022 9:14 AM Specimen (Source) Anatomical Collection Method Collection Time Re ceived Time Location / / Volume Laterality 08/06/2022 9:14 AM EDT Mely Solano MD GENERAL SURGICAL ORDERABLES Performing Organization Address City/State/ZIP Code Phon e Number [employer] documented in this encounter Visit Diagnoses Not on filedocumented in this encounter Administered Medications Inactive Administered Medications - up to 3 most recent administrations Medication Order MAR Action Action Date Dose Rate Site fentaNYL (pf) (50 mcg/mL) Given 08/06/2022 9:39 AM EDT 25 mcg multi-dose injection ONCE PRN, Starting on Kacy 08/06/22 at 0929, Until Kacy 08/06/22 at 1251, Intra-Operative (Intra-Procedure), Routine Given 08/06/2022 9:35 AM EDT 25 mcg Given 08/06/2022 9:32 AM EDT 50 mcg lactated ringers infusion New Bag 08/06/2022 9:16 AM EDT 100 mL/hr 100 mL/hr 100 mL/hr, Intravenous, CONTINUOUS, Starting on Kacy 08/06/22 at 0930, Until Kacy 08/06/22 at 1251, Endoscopy (Day of Procedure) midazolam (pf) (Versed) (1 mg/mL) multi-dose Given 06/2022 9:42 AM EDT 0.5 mg injection ONCE PRN, Starting on Kacy 08/06/22 at 0929, Until Kacy 08/06/22 at 1251, Intra-Operative (Intra-Procedure), Routine Given 08/06/2022 9:39 AM EDT 1 mg Given 08/06/2022 9:35 AM EDT 1 mg documented in this encounter Active and Recently Administered Medications Times are shown in EDT. Continuous Medication Order 08/04/2022 08/05/2022 08/06/2022 lactated ringers infusion 0916 ( New Bag - Provider: Natalee Allen RN) 100 mL/hr, Intravenous, CONTINUOUS, Star ting on Kacy 08/06/22 at 0930, Until Kacy 08/06/22 at 1251, Endoscopy (Day of Procedure) PRN Medication Order 08/04/2022 08/05/2022 08/06/2022 fentaNYL (pf) (50 mcg/mL) multi-dose injection (CANCELED) 0929 (Given - Provider: Yadira Guo RN)0932 (Given - Provider: Yadira Guo RN)0935 (Given - Provider: Yadira Guo RN)0939 (Given - Provider: Yadira Guo, RN) ONCE PRN, Starting on Kacy 08/06/22 at 0929 , Until Kacy 08/06/22 at 1251, Intra- Operative (Intra-Procedure), Routine midazolam (pf) (Versed) (1 mg/mL) multi-dose injection (CANCELED ) 0929 (Given - Provider: Yadira Guo, RN)0932 (Given - Provider: Yadira Guo, RN)0935 (Given - Provider: Yadira Guo RN)0939 (Given - Provider: Yadira Guo RN)0942 (Given - Provider: Yadira Guo, RN) ONCE PRN, Starting on Kacy 08/06/22 at 0929 , Until Kacy 08/06/22 at 1251, Intra- Operative (Intra-Procedure), Routine documented in this encounter Care Teams Scratch Polisher Relationship Specialty Start Date End Date Mely Solano MD PCP - General Family Medicine 04/03/[address] [place] [address] [place] [address] documented as of this encounter
--- OUTSIDE RECORDS SUMMARY | 2022-09-09 09:37 | XMS_ITS | Encounter Summary ---
:1955 Author Organization [facility] [place] [address] Care Team Providers Name Role Phone None Primary Care Provider Unavailable Encounter Details Date Type Department Care Team Description 12/17/2021 Specialty Pharmacy Pharmacy at [facility] Ankit Oliveros, [facility] [place] [address] Social History Tobacco Use Types Packs/Day [...] documented as of this encounter Progress Notes Ankit Oliveros [facility] - 12/17/2021 11:35 AM EST Clinical Management Plan: Transfer of Care/Discharge Specialty Services Specialty Pharmacy Consultation; Ankit Oliveros [facility] Comprehensive Medication Management (CMM) Tatyana Skelton [address] [facility] [address] Telephone Information: Work Phone Not on file. Is the patient transferring services to a different Specialty Pharmacy or discontinuing the medication? Discontinuing Medication Medication: Capecitabine Reason for discontinuation or transfer: Completed therapy Approximate date of discontinuation or transfer: Patient's response to therapy: No disease recurrence Summary of services provided by D- Specialty: New start education, refill calls, medication management Summary of on-going needs: Patient to follow-up with her provider as initiated Referral for additional services (if applicable): no Is patient aware of referral? n/a Instructions provided to patient about discharge/transfer: yes Provider aware of discontinuation or transfer: Yes Patient understands no changes to current drug regimen were made at the appointment and that [facility] is providing recommendations (summary located at top of note) for provider review and follow up. Ankit Oliveros [facility] 12/17/21 11:35 AM documented in this encounter Plan of Treatment Upcoming Encounters Date Type Specialty Care Team Description 10/15/2022 Office Visit Hematology and Oncology Aldo Gaming MD [facility] HEMATOLOGY/ONCOL [place]PT. [place] [address] (Wo rk) documented as of this encounter Goals Goal Patient Goal Associated Recent Patient-Stated? Author Type Problems Progress DH Home Medication Patient No Ken ds, Compliance and Facing Kayla Lopez, Understanding Action Plan [facility] Note: Formatting of this note might be d ifferent from the original. Prevent / slow progression of disease as assessed by labs and scans in clinic every 3 months or more often when indicated documented as of this encounter Visit Diagnoses Not on filedocumented in this encounter Care Teams Home Economist Consumer Service Relationship Specialty Start Date End Date None PCP - General 06/11/21 04/02/22 None documented as of this encounter
--- OUTSIDE RECORDS SUMMARY | 2022-09-09 09:37 | XMS_ITS | Encounter Summary ---
:1955 Author Organization [facility] [place] [address] Care Team Providers Name Role Phone None Primary Care Provider Unavailable Reason for Visit Reason Comments Medication Refill Encounter Details Date Type Department Care Team Description 12/01/2021 Specialty Pharmacy Pharmacy at [facility] Mely House, [place] [address] Social History Tobacco Use Types Packs/Day Years [...] documented as of this encounter Progress Notes Mely House [facility] - 12/01/2021 1:40 PM EST Clinical Management Plan: Refill Specialty Pharmacy Consultation; Mely House [facility] Comprehensive Medication Management (CMM) Tatyana Lucero Costa Ms. Tatyana Skelton is a 66 y.o. [...] a change made to the Care Plan: No Allergies and Drug intolerance: Allergies Allergen Reactions ??? Contrast [Iodine And Iodide Containing Products] Nausea And Vomiting and Other (See Comments) Neck swelling ??? Lisinopril Other (See Comments) Caused a dry cough ??? Lactose Diarrhea Medication Reconciliation Discrepancies (compared to [facility] med list) No Specialty Pharmacy Refill Questionnaire Refill Questionnaire 12/01/2021 What is the name of the specialty medication you are refilling? Capecitabine Are you taking any new medications? No Any new medical condition? No Please explain - Any new allergies? No Any new side effects that are bothersome? No Please explain - What date will you need this fill by? 12/04/2021 - Tatyana requested I send #[phone] since she has 42 on hand due to medication held in prior cycles Adherence: Any missed doses? No Patient understands no changes to current drug regimen were made. Mely House RPH 12/01/21 1:42 PM documented in this encounter Plan of Treatment Upcoming Encounters Date Type Specialty Care Team Description 10/15/2022 Office Visit Hematology and Oncology Aldo Gaming MD [facility] [address] (Wo rk) documented as of this encounter Goals Goal Patient Goal Associated Recent Patient-Stated? Author Type Problems Progress DH Home Medication Patient No Ken bailey, Compliance and Facing Kayla Lopez, Understanding Action Plan [facility] Note: Formatting of this note might be d ifferent from the original. Prevent / slow progression of disease as assessed by labs and scans in clinic every 3 months or more often when indicated documented as of this encounter Visit Diagnoses Not on filedocumented in this encounter Care Teams Labor Economist Relationship Specialty Start Date End Date None PCP - General 06/11/21 04/02/22 None documented as of this encounter
--- OUTSIDE RECORDS SUMMARY | 2022-09-09 09:37 | XMS_ITS | Encounter Summary ---
:1955 Author Organization [facility] Address [facility] [address] [place] [address] Care Team Providers Name Role Phone Mely Solano MD Primary Care Provider Encounter Details Date Type Department Care Team Description 07/16/2022 Office Visit Hematology/Oncology Celestina Gaming MD Malignant neoplasm of at [facility] upper-outer quadrant [address] of right breast in [place], [place] HEMATOLOGY/ONCOLOG femal e, estrogen [phone] Y DEPT. receptor negative [phone] [place], [place] [address] Social History Tobacco Use Types Packs/Day Years [...] Sign Reading Time Taken Comments Blood Pressure 134/73 07/16/2022 8:03 AM EDT Pulse 75 07/16/2022 8:03 AM EDT Temperature 35.4 ??C (95.7 ??F) 07/16/2022 8:03 AM EDT Respiratory Rate 18 07/16/2022 8:03 AM EDT Oxygen Saturation 100% 07/16/2022 8:03 AM EDT Inhaled Oxygen Concentration - - Weight 65.4 kg (144 lb 3.2 oz) 07/16/2022 8:03 AM EDT Height 170.2 cm (5' 7.01) 07/16/2022 8:03 AM EDT Body Mass Index 22.58 07/16/2022 8:03 AM EDT documented in this encounter Progress Notes Aldo Gaming MD - 07/16/2022 8:00 AM EDT Subjective: Patient ID: Tatyana Skelton is a 67 y.o. female. HPI The patient is a 67-year-old female seen in the [facility]. 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 ER was negative, IL was negative, HER-2 was negative. MRI scan of her breasts on 12/26/2020. no abnormalities in the left breast 2.1 x 1.5 x 1 cm lesion in the right breast about 8 cm posterior to the nipple. Several additional scattered enhancing nodular lesions in the right upper outer quadrant, the largest measuring 6.1 mm was suggestive of multifocal neoplasm. chest x-ray negative ultrasound of the right axilla which did not reveal any abnormal nodes. Echo showed EF of 67% 01/19 Neoadjuvant Adriamycin and cyclophosphamide 01/16/2021 [facility]'s Multi-Cancer Panel showed no mutation was detected 03/19 Complete 4 taxol 04/18 Bilateral mastectomies 06/18 2.5 cm residual tumor, triple negative, node negative Tumor board recommended postoperative adjuvant Xeloda Xeloda 1500 am, 2000 pm started 07/19 Completed 8 cycles 12/20 The patient returns to the [facility]. She completed neoadjuvant chemotherapy for her triple negative breast cancer and then underwent bilateral mastectomies. She still had substantial residual disease and completed a course of adjuvant Xeloda. Fell hiking and broke her R wrist. Had surgery and is healing. Also has macular dz in R eye. . Patient Active Problem List Diagnosis Code ??? UC (ulcerative colitis) K51.90 ??? HTN (hypertension) I10 ??? Hypothyroidism E03.9 ??? History of diverticulitis Z87.19 ??? Malignant neoplasm of upper-outer quadrant of right breast in female, estrogen receptor vbfpheiaF68.411, Z17.1 Type 1 diabetes diagnosed as an adult Current Outpatient Medications: ??? glucagon (Baqsimi) 3 mg/actuation [place], Non-Aerosol, 1 each by Nasal route as [...] Urine Glucose-Ketones Test Strip, 50 each by [facility].(Non-Drug; Combo Route) route as [...] Dexcom G6 Transmitter Device, 1 each by [facility].(Non-Drug; Combo Route) route continuous. Change every 90 [...] A/vit C/vit E/zinc/copper (ICAPS AREDS ORAL), Take 1 caplet by mouth daily., Disp: , Rfl: ??? estradioL (ESTRACE) 0.01 % (0.1 mg/gram) Cream, three times a week., Disp: , Rfl: ??? nystatin (MYCOSTATIN) Cream, , Disp: , Rfl: ??? atorvastatin (LIPITOR) 40 mg Tablet, Take 1 tablet by mouth daily., Disp: 90 tablet, Rfl: 3 ??? ONE TOUCH DELICA 33 gauge Misc, 1 each by [facility].(Non-Drug; Combo Route) route 6 times daily., Disp: [...] 25 mg tablet, , Disp: , Rfl: Allergies Allergen Reactions ??? Contrast [Iodine And Iodide Containing Products] Nausea And Vomiting and Other (See Comments) Neck swelling ??? Lisinopril Other (See Comments) Caused a dry cough ??? Lactose Diarrhea Review of Systems Constitutional: Negative for fatigue, fever and unexpected weight change. HENT: Negative for nosebleeds. Respiratory: Negative for cough and shortness of breath. Cardiovascular: Negative for chest pain and palpitations. Gastrointestinal: Negative for abdominal pain and diarrhea. Musculoskeletal: Negative for back pain. Skin: Negative for rash. Neurological: Negative for speech difficulty. Hematological: Negative for adenopathy. Does not bruise/bleed easily. All other systems reviewed and are negative. BP 134/73 (Patient Position: Sitting) Pulse 75 Temp 35.4 ??C (95.7 ??F) Resp 18 Ht 170.2 cm (5' 7.01) Wt 65.4 kg (144 lb 3.2 oz) SpO2 100% BMI 22.58 kg/m?? Sclera white Mucous membranes moist Normal respiratory effort Heart regular rate Extremities no edema Skin no rash, Neuro nonfocal No chest wall masses, Assessment and Plan: 67-year-old female who has a right-sided breast cancer. She had a 2.5 cm triple negative breast cancer and opted for neoadjuvant chemotherapy. She completed 4 cycles of dose dense Adriamycin and cyclophosphamide and then 4 more doses of Taxol. She underwent bilateral mastectomies and unfortunately hadreally minimal impact on her disease burden. She then went on to complete 8 cycles of adjuvant Xeloda in the postoperative setting. No signs of local or systemic recurrence In terms of cancer follow-up we will see her every 3 months. I see no signs of recurrent disease. She will not need mammograms. I will plan to see her in 3 months documented in this encounter Plan of Treatment Upcoming Encounters Date Type Specialty Care Team Description 10/15/2022 Office Visit Hematology and Oncology Aldo Gaming MD [facility] [place] [place] [address] (Wo rk) documented as of this encounter Goals Goal Patient Goal Associated Recent Patient-Stated? Author Type Problems Progress DH Home Medication Patient No Ken ds, Compliance and Facing Kayla Lopez, Understanding Action Plan [facility] Note: Formatting of this note might be d ifferent from the original. Prevent / slow progression of disease as assessed by labs and scans in clinic every 3 months or more often when indicated documented as of this encounter Visit Diagnoses Diagnosis Malignant neoplasm of upper-outer quadra nt of right breast in female, estrogen receptor negative documented in this encounter Care Teams Computer Console Operator Relationship Specialty Start Date End Date Mely Solano MD PCP - General Family Medicine 04/03/22 [address] [place] [address] documented as of this encounter
--- OUTSIDE RECORDS SUMMARY | 2022-09-09 09:37 | XMS_ITS | Encounter Summary ---
:1955 Author Organization [facility] Address [address] [place] [address] Care Team Providers Name Role Phone Mely Solano MD Primary Care Provider Encounter Details Date Type Department Care Team Description 04/06/2022 Orders Only Hematology/Oncology at Aldo Gaming MD Malignant neoplasm of [facility] upper-outer quadrant [address] of right breast in [place], [place] HEMATOLOGY/ONCOLOG femal e, estrogen [phone] Y DEPT. receptor negative [phone] [place] [id number] Social History Tobacco Use Types Packs/Day Years [...] Aldo Gaming MD [facility] HEMATOLOGY/[facility] DEPT. [place], [place] [address] (Wo rk) documented as of this encounter Goals Goal Patient Goal Associated Recent Patient-Stated? Author Type Problems Progress DH Home Medication Patient No Ken ds, Compliance and Facing Kayla Lopez, Understanding Action Plan [facility] Note: Formatting of this note [...] negative documented in this encounter Care Teams Director Fraud Relationship Specialty Start Date End Date Mely Solano MD PCP - General Family Medicine 04/03/[address] [place] [id number] documented as of this encounter
--- OUTSIDE RECORDS SUMMARY | 2022-09-09 09:37 | XMS_ITS | Clinical Summary ---
:1955 Author Organization [facility] [place] [address] Care Team Providers Name Role Phone Mely Solano MD Primary Care Provider Allergies Active Allergy Reactions Severity Noted Date Comments Iodine And Iodide Nausea And Vomiting, High 12/15/2012 Ne ck swelling Containing Products Other (See Comments) Ibuprofen Nausea And Vomiting 07/16/2022 Lactose Diarrhea 01/02/2021 Lisinopril Other (See Comments) Medium 12/15/2012 Caused a dry cough Medications Medication Sig Dispensed Refills Start Date End Date Status atenolol (TENORMIN) 0 03/07/2010 Active 25 mg tablet Calcium Take by mouth daily. 0 Active Carbonate-Vitamin D3 600 mg(1,500mg) -400 unit Capsule losartan (COZAAR) Take 25 mg by mouth 3 05/25/2018 Active 50 mg Tablet daily. Chromium Picolinate Take 200 mcg by 0 Active 200 mcg Tablet mouth daily. multivitamin Take 1 tablet by 0 Active (THERAGRAN) Tablet mouth daily. ONE TOUCH DELICA 33 1 each by 600 each 3 01/18/2019 Active gauge Misc Misc.(Non-Drug; Combo Route) route 6 times daily. atorvastatin Take 1 tablet by 90 tablet 3 09/22/2019 Active (LIPITOR) 40 mg mouth daily. Tablet estradioL (ESTRACE) three times a week. 0 02/20/2020 Active 0.01 % (0.1 mg/gram) Cream nystatin 0 02/17/2020 Active (MYCOSTATIN) Cream ascorbic acid, Take 500 mg by mouth 0 Active vitamin C, (VITAMIN daily. C) 500 mg Tablet, Chewable vit A/vit C/vit Take 2 caplet by 0 Active E/zinc/copper mouth daily. (ICAPS AREDS ORAL) LORazepam (Ativan) Take 1 tablet by 30 tablet 0 01/16/2021 Active 0.5 mg mouth every 6 hours TabletIndications: as needed for Malignant neoplasm Anxiety. May also of upper-outer take one by mouth quadrant of right every 6 hours as breast in female, needed for nausea. 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 Misc Blood-Glucose by NOT APPLICABLE 0 03/05/2021 Active Sensor Device route. pyridoxine, Vitamin Take 50 mg by mouth 0 Active B6, (Vitamin B6) 50 daily. mg Tablet Urine 50 each by 50 strip 1 09/11/2021 Active Glucose-Ketones Misc.(Non-Drug; Test Strip Combo Route) route as needed (As needed for severe hyperglycemia). Use to test urine for ketones in event of severe hyperglycemia OneTouch Verio test Check blood glucose 100 each 3 09/29/2021 Active strips Strip up to 6 times daily as needed as backup for Dexcom. DX: E13.9 metFORMIN Take 2 tablets by 360 tablet 3 12/09/2021 Active (Glucophage) 500 mg mouth 2 times daily TabletIndications: (with meals). Type 1 diabetes mellitus without complication Lantus Solostar Inject 18 Units 15 mL 3 03/20/2022 Active U-100 Insulin 100 subcutaneously every unit/mL (3 mL) pen morning. humaLOG KwikPen 100 Inject 1-6 Units 15 mL 3 03/20/2022 Active unit/mL Insulin Pen subcutaneously 3 times daily (before meals). ICD 10 Code: E10.9 sulfaSALAzine Take 4 tablets by 720 tablet 3 03/23/2022 Active (Azulfidine) 500 mg mouth 2 times daily. Tablet BD Ultra-Fine Short Inject 1 each 400 each 3 04/07/2022 Active Pen Needle 31 gauge subcutaneously 4 x 5/16 Needle times daily. ICD 10 Code: E10.9 glucagon (Baqsimi) 1 each by Nasal 2 each 1 06/23/2022 Active 3 mg/actuation route as needed [place], Non-Aerosol (administer dose into one nostril, may repeat in 15 minutes if no response while awaiting Emergency assistance). Additional Information Patient not taking. Reported on 09/01/2022 acetaminophen (Tylenol) 500 mg Take 1,000 mg by mouth 0 Active Tablet every 6 hours as needed for Pain. alendronate (Fosamax) 70 mg Take 70 mg by mouth every 7 days. Take in AM with full glass of water, on an empty stomach. Do not lie down for 30 min. 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 dx 1984 ?? Last colonoscopy 06/27/15 - Very mildl y active ulcerative colitis limited to a small segment of the sigmoid colon. External hemorrhoids. Moderate diverticulosis in the sigmoid colon. The examined portion of t he ileum was normal. Biopsies for surveillance for dysplasia were negative. ?? Colonoscopy 10/2013 - segmental area of moderately erythematous and thickened mucosa was found in the sigmoid colon. Biopsies negative. ?? CT scan 07/25/13 ( [facility] [place] [facility]) : Thickening of the wall of the mid sigmoid colon with pericolonic infiltration and reactive adenopathy. Trace amount of pelvic and abdominal free fluid. ..... ?? Prednisone remotely in the past x2 wi th flare up , last use about 22 years ago. ?? Sulfasalazine 2500 mg daily - increas ed to 4 g daily 08/2013. 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), managed as type 1; Malignant neopl asm of upper-outer quadrant of right breast in female, estrogen receptor negative 08/06/2022 Surgery Gastroenterology Brett Treviño MD FLEXIBLE, WITH BX (WRVU 3.66) 08/06/2022 Hospital Gastroenterology Brett Treviño MD 07/17/2022 Telephone Gastroenterology Martin Gamble 07/16/2022 Office Visit Hematology and Oncology Aldo Gaming Ma lignant neoplasm MD of upper-outer quadrant of rig ht breast in femal e, estrogen recept or negative 06/19/2022 Refill Endocrinology Heather Conte APRN 06/17/2022 Office Visit General Surgery [facility], History of b rosalbat Demetra Pan MD cancer from Last 3 Months Immunizations Name Administration Dates Next Due Influenza PF, Split 10/14/2015, 09/11/2013 Influenza Vaccine PF, Quadrivalent 08/22/2019, 10/03/2018, 1 12/15/2016 08/29/2019 Influenza Vaccine w/Preservative, Split 10/05/2016, 09/19/20 14 Influenza Vaccine, Whole 10/03/2007, 10/25/2006 Family History Medical History Relation Comments Prostate Cancer Brother Uterine Cancer Maternal Aunt Leukemia Maternal Cousin 1 Melanoma Maternal Cousin 1 Melanoma Maternal Cousin 2 Liver Cancer Maternal Cousin 3 Stomach Cancer Maternal Cousin 3 Lung Cancer Maternal Cousin 4 at 48 Breast Cancer Maternal Great-Grandmother Mother's MGM Ovarian Cancer Paternal Grandmother at age 51 Relation Status Comments Brother Maternal Aunt Maternal Cousin 1 Maternal Cousin 2 Maternal Cousin 3 Maternal Cousin 4 Maternal Great-Grandmother Other Paternal Grandmother Social History Tobacco Use Types Packs/Day Years [...] Date Recorded Female 01/09/2021 10:18 PM EST Last Filed Vital Signs Vital Sign Reading Time Taken Comments Blood Pressure 150/89 09/01/2022 10:06 AM EDT Pulse 73 09/01/2022 10:06 AM EDT Temperature 36.5 ??C (97.7 ??F) 09/01/2022 10:06 AM EDT Respiratory Rate 16 08/06/2022 10:20 AM EDT Oxygen Saturation 99% 09/01/2022 10:06 AM EDT Inhaled Oxygen Concentration - - Weight 64.2 kg (141 lb 9.6 oz) 09/01/2022 10:06 AM EDT Height 170.2 cm (5' 7) 09/01/2022 10:06 AM EDT Body Mass Index 22.18 09/01/2022 10:06 AM EDT Plan of Treatment Upcoming Encounters Date Type Specialty Care Team Description 10/15/2022 Office Visit Hematology and Oncology Adlo Gaming MD [facility] HEMATOLOGY/[facility] DEPT. [place], [place] [address] (Wo rk) Health Maintenance Due Date Last Done Comments Covid-19 Vaccine (#1) 1955 Hepatitis C Screening 02/02/1974 Tdap adult 02/02/1975 Tetanus vaccine 02/02/1975 HPV test 02/02/1986 PAP Smear 02/02/1986 Breast Cancer Share Decision 1996 Needed Breast Cancer screening 02/02/2006 Zoster vaccine (1 of 2) 02/02/2006 Advance Directive 02/02/2011 Bone Density Scan 02/02/2021 Pneumoccocal Vaccine: 65+ (1 - 02/02/2021 PCV) Influenza (Flu) vaccine (1 of 1 - 07/30/2022 08/22/2019, , Influenza standard series) 10/15/2017, Additiona l history exists Colonoscopy 08/06/2024 08/06/2022, 08/06/2022, 06/29/2019, Additional history exists Goals Goal Patient Goal Associated Recent Patient-Stated? Author Type Problems Progress DH Home Medication Patient No Ken bailey, Compliance and Facing Kayla Lopez, Understanding Action Plan [facility] Note: Formatting of this note might be d ifferent from the original. Prevent / slow progression of disease as assessed by labs and scans in clinic every 3 months or more often when indicated Procedures Procedure Name Priority Date/Time Associated Comments Diagnosis HC HEMOGLOBIN A1C STAT 09/01/2022 10:55 DINESH (latent Result s for this AM EDT autoimmune diabetes procedur e are in in adults), managed the resu lts as type 1 section. HC VENIPUNCTURE Routine 09/01/2022 10:55 DINESH (latent Results for this AM EDT autoimmune diabetes procedur e are in in adults), managed the resu lts as type 1 section. SPECIMEN TO PATHOLOGY Routine 08/06/2022 10:02 [...] results section. COLONOSCOPY FLEXIBLE, 08/06/2022 9:23 AM [place] in 3 yea rs for WITH BX (WRVU 3.66) EDT IBD surveillance. COLONOSCOPY Routine 08/06/2022 9:14 AM Results f or this EDT procedure are i n the results section. from Last 3 Months Results Hemoglobin A1c (09/01/2022 10:55 AM EDT) athologist Signature Hemoglobin A1C 4.7 4.3 - 5.6 [facility] Comment: Reference Range: 4.3 [...] Mellitus, Diabetes Care 2013; 36: Suppl. 1, X47-58 Est Avg Gluc 89 mg/dL [facility] Comment: eAG equivalents for HbA1c percentages: HbA1c(%) ?eAG(mg/dL) 6.0 ?126 6.5 ?140 7.0 ?154 7.5 ?169 8.0 ?183 8.5 ?197 9.0 ?212 9.5 ?226 10.0 ? 240 Limitations: The eAG calculation has not been validated on women, individuals below 18 years old and above 70 years old, and individuals with hemoglobinopathies. Additional resources are available on [facility] ADA website. David FONTANEZ, Ethan J, Luis Felipe R, et al. ??Tr anslating the A1C assay into estimated average glucose values. ??Diabetes Care 2008:31(8):0491-1935. Specimen Anatomical Collection Method Collection Time Receive d Time (Source) Location / / Volume Laterality Blood 09/01/2022 10:55 09/01/2022 AM EDT 11:01 AM EDT Resulting Agency Comment Spec In Lab Gustavo Collins MD CHEMISTRY ORDERABLES Performing Organization Address City/State/[place] [address] Lipid Panel (Reflex Direct LDL) (09/01/2022 10:55 AM EDT) athologist Signature Chol, Total 137 mg/dL [facility] Comment: Lower Risk: <200 mg/dL Average Risk: 200-239 mg/dL Higher Risk: >nm=262 mg/dL Triglycerides 82 mg/dL [facility] Comment: Average Risk/Lower Risk: <150 mg/dL Borderline High Risk: 150-199 mg/dL High Risk: 200-499 mg/dL Very High Risk: >am=714 mg/dL HDL 88 mg/dL [facility] Comment: Males: ?? Higher Risk: <40 mg/dL Females: ?? Higher Risk: <50 mg/dL LDL Cholesterol 33 mg/dL [facility] Comment: Lowest Risk: <100 mg/dL Lower Risk: 100-129 mg/dL Borderline High Risk: 130-159 mg/dL High Risk: 160-189 mg/dL Very High Risk: >aj=065 mg/dL Chol/HDL Ratio 1.6 ratio [facility] Lipid Interpretation See Note [facility] Comment: Lipid management should be guided by a p atient? s ASCVD risk, goals and preferences. ACC/AHA Guidelines recommend high intens ity statin if clinical ASCVD or LDL greater than or equal to 190 mg/dL. http://[employer]Klash/VEN-TUB-Nxujzgfrt Adults aged 40-75 with LDL 70-189 mg/dL should have their 10 year ASCVD risk estimated with the ACC/AHA ASCVD risk es timator http://tools.acc.org/KWFUJ-Jhau-Jdhqikhd r/ Statin should be discussed if risk [...] Organization Address City/State/[place] [address] [facility] [address] Specimen to Pathology (08/06/2022 10:02 AM EDT)Only the most recent of4 results within the time period is included. Specimen Anatomical Collection Method Collection Time Receive d Time (Source) Location / / Volume Laterality AP Specimen 08/06/2022 10:02 08/06/2022 AM EDT 10:02 AM EDT Narrative [facility] - 08/06/2022 10:02 AM EDT Specimen requisition ordered. ??Separate Pathology report to follow Brett Treviño MD PATHOLOGY/CYTOLOGY ORDERABLE S Performing Organization Address City/State/ZIP Code Phon e Number [address] Surgical Pathology Report (08/06/2022 9:48 AM EDT) Component Value Ref Test Analysis Performed At [facility] gist Range Method Time Signature Surgical [id number] ? Location: 4T; EA12; A [facility] Report The signing pathologist has (i) examined the relevant preparation(s) for the [facility] specimen(s) and (ii) rendered or confirmed the [...] Jael Verified: ??08/10/2022 13:19 ??Pathologist Performed at: ??-[facility] Dept. of Pathology, [place], [place] SPECIMEN(S) SUBMITTED A - Right colon [...] Organization Address City/State/[place] [address] [facility] [address] COLONOSCOPY (08/06/2022 9:14 AM EDT) [facility] gist Method Time Signature COLONOSCOPY [facility] [employer] Endoscopy Procedure Date: 08/06/2022 9:14 AM ? Patient Name: Tatyana Skelton ? Date of : 1955 ? Age: 67 ? Order #: [id number] ? Instrument Name: [id number] ? Procedure: ? Colonoscopy Indications: ? High risk colon cancer ? surveillance: Ulcerative p ancolitis ? of 8 (or more) years durat ion. UC ? in clinical remission. Providers: ? Yadira Samayoa, ? Shashi Cramer Referring MD: ?Mely Solano [...] preparation was evaluated ? using the BBPS ([facility] el ? Preparation Scale) with sc ores [...] home. ? - Patient has a contact cholo breaux ? available for emergencies. The ? signs [...] I personally performed the entire procedure. ? Yeison. Hudson Brett Elliott Hudson, 08/06/2022 10:06:54 AM Number of Addenda: 0 Note Initiated On: 08/06/2022 9:14 AM Specimen (Source) Anatomical Collection Method Collection Time Re ceived Time Location / / Volume Laterality 08/06/2022 9:14 AM EDT Mely Solano MD GENERAL SURGICAL ORDERABLES Performing Organization Address City/State/ZIP Code Phon e Number [employer] from Last 3 Months Insurance Payer Benefit Plan / Subscriber ID Effective Dates Phone Addre ss Type Group MEDICARE MEDICARE PART A [id number] 2021-Present [phone] [address] [place] [id number] MEDICARE BH MEDICARE [id number] 2021-Presen [phone] [id number] [place] [phone] (Work) Care Teams Salvage Inspector Relationship Specialty Start Date End Date Mely Solano MD PCP - General Family Medicine 04/03/[address] [place] [address]
--- OUTSIDE RECORDS SUMMARY | 2022-09-09 09:37 | XMS_ITS | Encounter Summary ---
:1955 Author Organization [facility] [place] [address] Care Team Providers Name Role Phone Mely Solano MD Primary Care Provider Reason for Visit Reason Onset Date Comments Medication Refill 12/09/2021 Encounter Details Date Type Department Care Team Description 12/09/2021 Refill Endocrinology at [facility] Anitra Adam, ANDREW Type 1 diabetes mellitus [facility] [place] [address] Social History Tobacco Use Types Packs/Day Years [...] Visit Hematology and Oncology Aldo Gaming MD [facility] HEMATOLOGY/[facility] DEPT. [place], [place] [address] (Wo rk) documented as of this encounter Goals Goal Patient Goal Associated Recent Patient-Stated? Author Type Problems Progress DH Home Medication Patient No Ken bailey, Compliance and Facing Kayla Lopez, Understanding Action Plan [facility] Note: Formatting of this note might be [...] uncontrolled documented in this encounter Care Teams Journeyman Powerhouse Operator Relationship Specialty Start Date End Date Mely Solano MD PCP - General Family Medicine 04/03/[address] [place] [phone] documented as of this encounter
--- OUTSIDE RECORDS SUMMARY | 2022-09-09 09:37 | XMS_ITS | Encounter Summary ---
:1955 Author Organization [facility] [place] [address] Care Team Providers Name Role Phone Mely Solano MD Primary Care Provider Reason for Visit Reason Onset Date Comments Medication Refill 06/19/2022 Encounter Details Date Type Department Care Team Description 06/19/2022 Refill Endocrinology at [facility] C Heather Conte APRN [facility] Rubin [facility] [place] [address] ENDOCRINOLOGY [phone] [place], [place] [address] (Wo rk) Social History Tobacco [...] Visit Hematology and Oncology Aldo Gaming MD [facility] HEMATOLOGY/[facility] DEPT. [place], [place] [address] (Wo rk) documented as of this encounter Goals Goal Patient Goal Associated Recent Patient-Stated? Author Type Problems Progress DH Home Medication Patient No Ken ds, Compliance and Facing Kayla Lopez, Understanding Action Plan [facility] Note: Formatting of this note might be d ifferent from the original. Prevent / slow progression of disease as assessed by labs and scans in clinic every 3 months or more often when indicated documented as of this encounter Visit Diagnoses Not on filedocumented in this encounter Care Teams Top Lift And Automatic Window Repairer Relationship Specialty Start Date End Date Mely Solano MD PCP - General Family Medicine 04/03/[address] [place] [id number] documented as of this encounter
--- OUTSIDE RECORDS SUMMARY | 2022-09-09 09:37 | XMS_ITS | Encounter Summary ---
:1955 Author Organization [facility] [place] [address] Care Team Providers Name Role Phone Mely Solano MD Primary Care Provider Encounter Details Date Type Department Care Team Description 07/17/2022 Telephone Gastroenterology at [facility] [place] [address] Social History Tobacco Use Types Packs/Day [...] this encounter Miscellaneous Notes Telephone Encounter - Martin Gamble - 07/17/2022 5:07 PM EDT Inbound/Outbound: Outbound Spoke to Patient/Left Message: Left message Notes: Outbound call to patient to advise provider change for upcoming procedure on 08/06. Provider changing from [place] to [place]. Advised patient to call with any questions. Return calls can be handled by: Endoscopy Maintenance Pipefitter [phone] documented in this encounter Plan of Treatment Upcoming Encounters Date Type Specialty Care Team Description 10/15/2022 Office Visit Hematology and Oncology Alod Gaming MD [facility] [place] [address] (Wo rk) documented as of this encounter Goals Goal Patient Goal Associated Recent Patient-Stated? Author Type Problems Progress DH Home Medication Patient No Ken ds, Compliance and Facing Kayla Lopez, Understanding Action Plan [facility] Note: Formatting of this note might be d ifferent from the original. Prevent / slow progression of disease as assessed by labs and scans in clinic every 3 months or more often when indicated documented as of this encounter Visit Diagnoses Not on filedocumented in this encounter Care Teams Electric Switch Repairer Relationship Specialty Start Date End Date Mely Solano MD PCP - General Family Medicine 04/03/[address] [place] [phone] documented as of this encounter
--- OUTSIDE RECORDS SUMMARY | 2022-09-09 09:37 | XMS_ITS | Encounter Summary ---
:1955 Author Organization [facility] [place] [address] Care Team Providers Name Role Phone Mely Solano MD Primary Care Provider Encounter Details Date Type Department Care Team Description 04/23/2022 Office Visit Hematology/Oncology Celestina Gaming MD [facility] DR HEMATOLOGY/[place] [address] Malignant neoplasm of at [facility] Randee Scherer, [facility] DR HEMATOLOGY[place] [address] upper-outer quadrant [address] of right breast in [place], [place] female, [place] [id number] receptor negative [phone] Social History Tobacco Use Types Packs/Day Years [...] Sign Reading Time Taken Comments Blood Pressure 139/59 04/23/2022 10:03 AM EDT Pulse 70 04/23/2022 10:03 AM EDT Temperature 35.9 ??C (96.6 ??F) 04/23/2022 10:03 AM EDT Respiratory Rate 18 04/23/2022 10:03 AM EDT Oxygen Saturation 99% 04/23/2022 10:03 AM EDT Inhaled Oxygen Concentration - - Weight 61.7 kg (136 lb) 04/23/2022 10:03 AM EDT Height 170.2 cm (5' 7.01) 04/23/2022 10:03 AM EDT Body Mass Index 21.3 04/23/2022 10:03 AM EDT documented in this encounter Progress Notes Aldo Gaming MD - 04/23/2022 10:00 AM EDT Subjective: Patient ID: Tatyana Skelton is a 67 y.o. female. HPI The patient is a 67-year-old female seen in the [facility]. 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 ER was negative, HI was negative, HER-2 was negative. MRI scan [...] 67% 01/19 Neoadjuvant Adriamycin and cyclophosphamide 01/16/2021 [facility] Multi-Cancer Panel showed no mutation was detected 03/19 Complete 4 taxol 04/18 Bilateral mastectomies 06/18 2.5 cm residual tumor, triple negative, node negative Tumor board recommended postoperative adjuvant Xeloda Xeloda 1500 am, 2000 pm started 07/19 Completed 8 cycles 12/20 The patient returns to the [facility]. She completed neoadjuvant chemotherapy for her triple negative breast cancer and then underwent bilateral mastectomies. She still had substantial residual disease and completed a course of adjuvant Xeloda. Just back from a trip to [place]. [place]. Her eating schedule has been a bit off. No new medications. Energy has been okay. She has not noted any lumps or bumps that are persistent butshe occasionally feels some small lumps in her chest wall that come and go. Patient Active Problem List Diagnosis Code ??? UC (ulcerative colitis) K51.90 ??? HTN (hypertension) I10 ??? Hypothyroidism E03.9 ??? History of diverticulitis Z87.19 ??? Malignant neoplasm of upper-outer quadrant of right breast in female, estrogen receptor [id number], Z17.1 Type 1 diabetes diagnosed as an adult Current Outpatient Medications: ??? sulfaSALAzine (Azulfidine) 500 mg Tablet, Take [...] (with meals)., Disp:360 tablet, Rfl: 3 ??? levothyroxine (SYNTHROID) 175 mcg Tablet, Take 1 tablet by mouth daily., Disp: 90 tablet, Rfl: 3 ??? glucagon (Baqsimi) 3 mg/actuation [place], Non-Aerosol, 3 mg by Nasal route as needed (administer dose into one nostril, may repeat in 15 minutes if no response while awaiting Emergency assistance).,Disp: 2 each, Rfl: 1 ??? LORazepam (Ativan) 0.5 mg Tablet, Take [...] daily., Disp: 90 tablet, Rfl: 3 ??? losartan (COZAAR) 50 mg Tablet, Take 25 mg by mouth daily., Disp: , Rfl: 3 ??? multivitamin (THERAGRAN) Tablet, Take 1 tablet by mouth daily., Disp: , Rfl: ??? Calcium Carbonate-Vitamin D3 600 mg(1,500mg) -400 unit Capsule, Take by mouth daily., Disp: , Rfl: ??? atenolol (TENORMIN) 25 mg tablet, , Disp: , Rfl: ??? BD Ultra-Fine Short Pen Needle 31 gauge x 5/16 Needle, Inject 1 each subcutaneously 4 times daily. ICD 10 Code: E10.9, Disp: 400 each, Rfl: 3 ??? OneTouch Verio test strips [...] severe hyperglycemia, Disp:50 strip, Rfl: 1 ??? Blood-Glucose Meter,Continuous Misc, by NOT APPLICABLE route., Disp: , Rfl: ??? Blood-Glucose Sensor Device, by NOT APPLICABLE route., Disp: , Rfl: ??? Dexcom G6 Transmitter Device, 1 each by Misc.(Non-Drug; Combo Route) route continuous. Change every 90 days., Disp: 1 Device, Rfl: 3 ??? ONE TOUCH DELICA 33 gauge Misc, 1 each by Misc.(Non-Drug; Combo Route) route 6 times daily., Disp: 600 each, Rfl: 3 ??? Chromium Picolinate 200 mcg Tablet, Take 200 mcg by mouth daily., Disp: , Rfl: Allergies Allergen Reactions ??? [...] other systems reviewed and are negative. BP 139/59 (Patient Position: Sitting) Pulse 70 Temp 35.9 ??C (96.6 ??F) (Temporal) Resp 18 Ht 170.2 cm (5' 7.01) Wt 61.7 kg (136 lb) SpO2 99% BMI 21.30 kg/m?? Sclera white Mucous membranes moist Normal respiratory effort Heart regular rate Extremities no edema Skin no rash, early dry skin and cracks around the fingertips Neuro nonfocal No chest wall masses, A single sub 5mm deep nodularity R lateral chest wall White count 4.1, ANC 2.2, hemoglobin 13.2, platelets 157 Creatinine 0.8, alk phos 81 Glucose 50, potassium 2.9 Assessment and Plan: 67-year-old female who has [...] of adjuvant Xeloda in the postoperative setting. Since completing therapy she has been doing well with recovery of any skin toxicity. Her labs are fine. She thinks maybe her sugars are low because of her schedule its been thrown off. Not clear why her potassium would be low other than some glucose/insulin shifts. I have encouraged her to increase some oral high potassium foods. In terms of cancer follow-up we will see her every 3 months. I see no signs of recurrent disease. She will not need mammograms. She does have a follow-up with her breast cancer surgical team in May. I asked her to be sure to show that small area of right lateral nodularity to her surgical team. I will plan to see her in June or so. documented in this encounter Plan of Treatment Upcoming Encounters Date Type Specialty Care Team Description 10/15/2022 Office Visit Hematology and Oncology Aldo Gaming MD [facility] HEMATOLOGY/[facility] DEPT. [place] [address] (Wo rk) documented as of this encounter Goals Goal Patient Goal Associated Recent Patient-Stated? Author Type Problems Progress DH Home Medication Patient No Ken ds, Compliance and Facing Kayla Lopez, Understanding Action Plan [facility] Note: Formatting of this note might be d ifferent from the original. Prevent / slow progression of disease as assessed by labs and scans in clinic every 3 months or more often when indicated documented as of this encounter Procedures Procedure Name Priority Date/Time Associated Diagnosis Comme nts CBC (WITH DIFF) Routine 04/23/2022 Results for this procedure are i n the results section . COMPREHENSIVE METABOLIC Routine 04/23/2022 Resu lts for this PANEL (NON-FASTING) procedur e are in the results section . documented in this encounter Results Comprehensive metabolic panel (non-fasting) (04/23/2022) athologist Signature BUN 16 Creatinine 0.8 Sodium 138 Potassium 2.9 Calcium 9.1 Alk Phos 81 AST 22 ALT 35 Specimen (Source) Anatomical Location Collection Method / Collectio n Time Received Time / Laterality Volume Blood 04/23/2022 Historical Provider CHEMISTRY ORDERABLES CBC (with Diff) (04/23/2022) athologist Signature WBC 4.07 RBC 4.32 Hemoglobin 13.2 Hematocrit 41.7 Platelets 157 Neutr Abs (ANC) 2.20 Specimen (Source) Anatomical Location Collection Method / Collectio n Time Received Time / Laterality Volume Blood 04/23/2022 Historical Provider HEMATOLOGY ORDERABLES documented in this encounter Visit Diagnoses Diagnosis Malignant neoplasm of upper-outer quadra nt of right breast in female, estrogen receptor negative documented in this encounter Care Teams Recycler Relationship Specialty Start Date End Date Mely Solano MD PCP - General Family Medicine 04/03/[address] [place] [phone] documented as of this encounter
--- OUTSIDE RECORDS SUMMARY | 2022-09-09 09:37 | XMS_ITS | Encounter Summary ---
:1955 Author Organization [facility] [place] [address] Care Team Providers Name Role Phone None Primary Care Provider Unavailable Encounter Details Date Type Department Care Team Description 12/25/2021 Office Visit Hematology/Oncology Karli Leavitt Ma lignant neoplasm of at [facility] A, BOOKKEEPER ASSISTANT upper-outer quadrant [address] of right breast in [place], [place] HEMATOLOGY ONCO LOGY female, estrogen [id number] [place], [place] receptor negative [phone] (Wo rk) Social History Tobacco Use Types [...] Sign Reading Time Taken Comments Blood Pressure 132/73 12/25/2021 1:31 PM EST Pulse 76 12/25/2021 1:31 PM EST Temperature 36.3 ??C (97.3 ??F) 12/25/2021 1:31 PM EST Respiratory Rate 20 12/25/2021 1:31 PM EST Oxygen Saturation 99% 12/25/2021 1:31 PM EST Inhaled Oxygen Concentration - - Weight 65.8 kg (145 lb) 12/25/2021 1:31 PM EST Height 171 cm (5' 7.32) 12/25/2021 1:31 PM EST Body Mass Index 22.49 12/25/2021 1:31 PM EST documented in this encounter Progress Notes Karli Leavitt, BOOKKEEPER ASSISTANT - 12/25/2021 1:30 PM EST Subjective: Patient ID: Tatyana Skelton is a 66 y.o. female. Patient Active Problem List Diagnosis ??? Malignant neoplasm of upper-outer quadrant of right breast in female, estrogen receptor negative ??? History of diverticulitis ??? UC (ulcerative colitis) ?? dx 1984 ?? Last colonoscopy 06/27/15 - Very mildly [...] Biopsies negative. ?? CT scan 07/25/13 ( [facility]) : Thickening of the wall of the mid sigmoid colonwith pericolonic infiltration and reactive adenopathy. Trace amount of pelvic and abdominal free fluid. ..... ?? Prednisone remotely in the past x2 with flare up , last use about 22 years ago. ?? Sulfasalazine 2500 mg daily - increased to 4 g daily 08/2013. ??? HTN (hypertension) ??? Hypothyroidism ...........................................................//// Patient ID: Tatyana Skelton is a 65 y.o. female. ?? HPI The patient is a 65-year-old female seen in the [facility]. ?? Right breast cancer 12/20 Mammo Detected Bx: microinvasive adenocarcinoma of the lobular type. ER was negative, MN was negative, HER-2 was negative. MRI scan [...] nodes. Echo showed EF of 67% 01/19 Start neoadjuvant Adriamycin and cyclophosphamide 01/16/2021\ INTERVAL HPI 12/25/21 Tatyana Skelton is a 66 yo female diagnosed 11/17 with microinvasive lobular carcinoma of the right breast; ER/MN negative; HER-2 jacob negative.(See history as summarized above.) Tatyana returns to the [facility]- oncology clinic in [facility] today for evaluation following C8 Capecitabine, which is her last planned cycle. Tatyana is doing well today. She has good energy as always and has been snowshoeing. She does notice her feet and fingers are more sensitive to the cold this cycle. She notes her fingertips have more cracks today and are much more dry. She denies peeling of hands or feet. She thinks she has a little more neuropathy in hands and feet. She noticed a soft small swelling this week near her right lateral chest . She says it lasted a few days and she can't find it today. No swelling or lymphedema noted elsewhere. Her left arm has been achy for a few days without swelling. Tatyana says on her off week she has an irritation noted in the vaginal area. No discharge or bleeding. Fluconazole was not that helpful when taken after C7. She will contact her PCP if it does not resolve in a week or so. No issues with appetite or taste. A few episodes of diarrhea which resolve. No Breathing issues or chest pain. She has been glad to be so active. We talked about the plan for the next year for q3-4 month visits. We will do labs for the next follow-up and they will not be needed after that. We talked about continuing her good regimens of daily exercise and healthy diet. We talked about monitoring for arm or axilla or chest swelling or pain and to let us know if those occur. She is excited to be going to [place] to visit family in mid-March. Allergies Allergen Reactions ??? Contrast [Iodine And Iodide Containing Products] Nausea And Vomiting and Other (See Comments) Neck swelling ??? Lisinopril Other (See Comments) Caused a dry cough ??? Lactose Diarrhea Current Medications ??? metFORMIN (Glucophage) 500 mg Tablet ??? potassium chloride ER (K-Dur/Klor-Con) 20 mEq Tab Sust.Rel. Particle/Crystal ??? CAPEcitabine (Xeloda) 500 mg tablet ??? OneTouch Verio test strips Strip ??? pyridoxine, Vitamin B6, (Vitamin B6) 50 mg Tablet ??? Urine Glucose-Ketones Test Strip ??? levothyroxine (SYNTHROID) 175 mcg Tablet ??? glucagon (Baqsimi) 3 mg/actuation [place], Non-Aerosol ??? Blood-Glucose Meter,Continuous Misc ??? Blood-Glucose Sensor Device ??? Lantus Solostar U-100 Insulin pen ??? sulfaSALAzine (Azulfidine) 500 mg Tablet ??? StyleUp G6 Transmitter Device ??? BD Ultra-Fine Short Pen Needle 31 gauge x 5/16 Needle ??? humaLOG KwikPen 100 unit/mL Insulin Pen ??? loratadine (Claritin) 10 mg Tablet ??? senna (Senokot) 8.6 mg Tablet ??? polyethylene glycol 3350 (MIRALAX ORAL) ??? LORazepam (Ativan) 0.5 mg Tablet ??? prochlorperazine (Compazine) 10 mg Tablet ??? ascorbic acid, vitamin C, (VITAMIN C) 500 mg Tablet, Chewable ??? vit A/vit C/vit E/zinc/copper (ICAPS AREDS ORAL) ??? estradioL (ESTRACE) 0.01 % (0.1 mg/gram) Cream ??? nystatin (MYCOSTATIN) Cream ??? atorvastatin (LIPITOR) 40 mg Tablet ??? ONE TOUCH DELICA 33 gauge Misc ??? losartan (COZAAR) 50 mg Tablet ??? Chromium Picolinate 200 mcg Tablet ??? multivitamin (THERAGRAN) Tablet ??? Calcium Carbonate-Vitamin D3 600 mg(1,500mg) -400 unit Capsule ??? atenolol (TENORMIN) 25 mg tablet Social History Tobacco Use ??? Smoking status: Never Smoker ??? Smokeless tobacco: Never Used Substance Use Topics ??? Alcohol use: No ??? Drug use: No Review of Systems Constitutional: Positive for fatigue. Negative for activity change and fever. Mostly in the off week. Respiratory: Negative for cough and shortness of breath. Cardiovascular: Negative for chest pain and palpitations. Gastrointestinal: Positive for diarrhea. Negative for constipation, nausea and vomiting. A few mild episodes not requiring treatment Genitourinary: Negative. Skin: Positive for wound. Cuts on fingertips Neurological: Negative. Hematological: Negative. Psychiatric/Behavioral: Negative. Objective: Physical Exam Vitals reviewed. Constitutional: Appearance: Normal appearance. She is not ill-appearing. Comments: Pleasant, well-nourished, well-appearing female in NAD HENT: Mouth/Throat: Mouth: Mucous membranes are moist. Pharynx: Oropharynx is clear. No posterior oropharyngeal erythema. Cardiovascular: Rate and Rhythm: Normal rate and regular rhythm. Heart sounds: Normal heart sounds. Pulmonary: Effort: No respiratory distress. Breath sounds: Normal breath sounds. No wheezing. Abdominal: General: Bowel sounds are normal. Palpations: Abdomen is soft. Tenderness: There is no abdominal tenderness. Musculoskeletal: General: Normal range of motion. Right lower leg: No edema. Left lower leg: No edema. Comments: No swelling under left axilla or upper left arm. Skin: General: Skin is warm and dry. Findings: No lesion. Comments: Well healing incisions at bilateral mastectomy sites. No new lumps or bumps noted on chest wall or axillary areas. Neurological: Mental Status: She is alert and oriented to person, place, and time. Coordination: Coordination normal. Psychiatric: Mood and Affect: Mood normal. Thought Content: Thought content normal. BP 132/73 (Patient Position: Sitting) Pulse 76 Temp 36.3 ??C (97.3 ??F) (Temporal) Resp 20 Ht 171 cm (5' 7.32) Wt 65.8 kg (145 lb) SpO2 99% BMI 22.49 kg/m?? LABS 12/15/21 WBC 4.06; ANC 2.72; H/H 11.6/35.1; PLT 144; ;BUN 14; CREAT 0.8; LFTs normal. Assessment and Plan: Assessment: Tatyana Skelton is a 66 yo female diagnosed 11/17 with microinvasive lobular carcinoma of the right breast; ER/MN negative; HER-2 jacob negative.(See history as summarized above.) Tatyana returns to the [facility] oncology clinic in [facility] today for evaluation following C8 Capecitabine. She has remained on a Capecitabine dose of 1500mg am and 2000mg pm. CBC and CMP were reviewed with Tatyana today. Tatyana has GR 1 skin toxicity on fingertips and hands. Plan: RTC in early 04/19 for labs, visit. Encouraged ongoing daily exercise and good diet. Tatyana manages her blood sugars carefully. Call sooner for any concerns. documented in this encounter Plan of Treatment Upcoming Encounters Date Type Specialty Care Team Description 10/15/2022 Office Visit Hematology and Oncology Aldo Gaming MD [facility] HEMATOLOGY/ONCOL [facility]NA [place] [address] (Wo rk) documented as of this encounter Goals Goal Patient Goal Associated Recent Patient-Stated? Author Type Problems Progress DH Home Medication Patient No Ken bailey, Compliance and Facing Kayla Lopez, Understanding Action Plan [facility] Note: Formatting of this note [...] negative documented in this encounter Care Teams Vp Training Relationship Specialty Start Date End Date None PCP - General 06/11/21 04/02/22 None documented as of this encounter
--- OUTSIDE RECORDS SUMMARY | 2022-09-09 09:37 | XMS_ITS | Encounter Summary ---
:1955 Author Organization [facility] [place] [address] Care Team Providers Name Role Phone None Primary Care Provider Unavailable Reason for Visit Reason Comments Medication Refill Encounter Details Date Type Department Care Team Description 10/15/2021 Specialty Pharmacy Pharmacy at [facility], [place] [address] Social History Tobacco Use Types Packs/Day Years [...] of this encounter Progress Notes [facility] - 10/15/2021 8:54 AM EST Clinical Management Plan: Refill Specialty Pharmacy Consultation; [facility] Comprehensive Medication Management (CMM) Tatyana Lucero Costa Ms. Tatyana Skelton is a 66 y.o. (1955) female who was contacted in regard to a specialty medication refill reminder. Contact made with caregiver. Caregiver name: , Sami regarding Capecitabine. A review of the medication therapy was performed. The medication was refilled as scheduled, andall medication related questions and concerns were addressed. The specialty pharmacy staff will follow up with the patient 5-7 days prior to next refill. Was a change made to the Care Plan: no If yes, should the medication be held: No Assessment and Recommendations: Title Type of Medication Management: targeted medication review Recipient: beneficiary Provider: plan sponsor pharmacist Visit Type: [facility] Follow-up Method of Contact: by telephone Cognitive Ability: good Cognitive Impairment Status Verified this Year: no Allergies and Drug intolerance: Allergies Allergen Reactions ??? Contrast [Iodine And Iodide Containing Products] Nausea And Vomiting and Other (See Comments) Neck swelling ??? Lisinopril Other (See Comments) Caused a dry cough ??? Lactose Diarrhea Medication Reconciliation Discrepancies (compared to [facility] med list) -none Specialty Pharmacy Refill Questionnaire Refill Questionnaire 10/15/2021 What is the name of the specialty medication you are refilling? Capecitabine Are you taking any new medications? No Any new medical condition? No Any new allergies? No Any missed doses since your last fill? No Any new side effects that are bothersome? Yes Please explain Fatigue, OLIVAS, skin peeling on fingers What date will you need this fill by? 10/24/2021 Adherence: Specialty Med Adherence Patient Demonstrates Understanding of Importance of Adherence: Yes Educational Information or Adherence Tools Provided: No Patient Reported X Missed Doses in the Last Month: 0 Provider-Estimated Medication Adherence Level: 90-100% Adherence Tools Used: alarm Pt understands no changes to current drug regimen were made at the appointment and that [facility] is providing recommendations (summary located at top of note) for provider review and follow up. Mely House RPH 10/15/21 9:01 AM documented in this encounter Plan of Treatment Upcoming Encounters Date Type Specialty Care Team Description 10/15/2022 Office Visit Hematology and Oncology Aldo Gaming MD [facility] HEMATOLOGY/[facility] DEPT. [place], [place] [address] (Wo rk) documented as of this encounter Goals Goal Patient Goal Associated Recent Patient-Stated? Author Type Problems Progress DH Home Medication Patient No Ken bailey, Compliance and Facing Kayla Lopez, Understanding Action Plan [facility] Note: Formatting of this note might be d ifferent from the original. Prevent / slow progression of disease as assessed by labs and scans in clinic every 3 months or more often when indicated documented as of this encounter Visit Diagnoses Not on filedocumented in this encounter Care Teams Returned Goods Repairer Relationship Specialty Start Date End Date None PCP - General 06/11/21 04/02/22 None documented as of this encounter
--- OUTSIDE RECORDS SUMMARY | 2022-09-09 09:37 | XMS_ITS | Encounter Summary ---
:1955 Author Organization [facility] Address [address] [place] [address] Care Team Providers Name Role Phone None Primary Care Provider Unavailable Encounter Details Date Type Department Care Team Description 12/16/2021 TH Visit Endocrinology at [facility] Heather Sidhu Type [facility] [place] [address] [phone] ENDOCRINOLOGY [place] [address] Social History Tobacco Use Types Packs/Day Years [...] PM EST documented as of this encounter Patient Instructions Patient InstructionsHeather Conte APRN - 12/16/2021 10:30 AM EST Plan: --Medications: Continue Lantus 18 units daily Humalog CR 1:13, ISF 1:40 for BG > 150 --Monitoring: with CGM check BGs fasting in am, before each meal, 1-2 hours after meals and at bedtime. Target fasting blood sugars 90-140 pre-meal during daytime 90-150 1-2 h post meal below 180 Target A1c 7% for this patient. --Patient will keep log of blood glucose and insulin used for review at next visit or bring CGM reader for download --Diet and exercise: low fat/controlled carb diet & exercise as tolerated to keep weight down. --Prevention: UTD --F/U lab for: A1C, TSH, U alb/cre -routed to [facility] --RTC: Next visit in 3 months with Inés and 6 months with (previous [facility] patient) documented in this encounter Progress Notes Heather Conte APRN - 12/16/2021 10:30 AM EST Images from the original note were not included. Date of Visit: 12/16/2021 Patient is aware that this will be a telemedicine/telephone visit and understands that this might bebilled as a regular office visit. Patient's location and were confirmed prior to the start of the visit. Reason for Visit: Follow-up diabetes Brief History: Tatyana Skelton is a 66 y.o. female with PMH significant for UC and??DM type 1 (DINESH) and hypothyroidism. Diabetes in the past had been complicated by frequent hypoglycemia. She is now using a Dexcom CGM. Sought guidance from endocrinology team when she started chemotherapy for breast can cer. Interval Hx: She reports that she is on a chemo pill and has been struggling a bit with blood sugars. Numbers are pretty consistently elevated during the day. She feels that she is back to being able to feel low blood sugars. She does have low alarms set. She feels that sometimes her insulin does not woprk as well. Plan from previous visit note: Inés 06/11/2021 Patient is a 66 y.o. female with PMH significant for UC and??DM type 1 (DINESH), and hypothyroidism. Diabetes is currently under excellent control, last check of A1C was 5.4% in February. Review of Dexcom CGM shows she is in target range 88% of the time, low 2% and very low 1% of time. With her hypoglycemia unawareness she can tolerate a higher A1C and insulin dosing adjusted today to minimize any hypo events. She has a good understanding of diabetes and potential complications of poor blood glucose control. ?? Review of AHA/ACC/ADA and Endocrine Society clinical practice guidelines, recommend that a moderate intensity statin should be started at age 40 in those with diabetes regardless of ASCVD risk. Goal LDL should be < 70 in general and < 55 in those with established cardiovascular disease or multiple risk factors. Will update LDL with next set of labs, close to goal at last check on her current statin therapy ?? BP: at goal ?? Patient is on Multiple Daily Injections: Diagnosis: Diabetes Mellitus??type 1 (DINESH) on multiple daily insulin injections Patient performs SMBG at least 4x per day Patient administers 3 or more insulin injections per day Patient frequently adjusts meal time insulin doses Patient needs a therapeutic CGM I plan to see this pt soon and at least every 6 months following this initial prescription of the CGM to assess adherence to their CGM regimen and diabetes treatment plan. ? Plan: I will send you an invitation to share your Dexcom data remotely for follow up visits --Medications: Decrease Lantus to 18 units daily Change carb ratio to 1:20 so that you are administering less insulin with each carb for meals ?? --Monitoring: with CGM check BGs fasting in am, before each meal, 1-2 hours after meals and at bedtime. ?Target fasting blood sugars 90-140 ?pre-meal during daytime 90-150 ?1-2 h post meal below 180 ?Target A1c <7% for this patient. ?? --Patient will keep log of blood glucose and insulin used for review at next visit or bring CGM reader for download ?? --Diet and exercise: controlled carb diet & exercise as tolerated to keep weight down. --Prevention: Due for shingrex and pneumonia series --F/U lab for: A1C, LDL, urine alb/creat through PCP --RTC: Next visit in??6 months.??(Quick draw lab before visit with us on the same day). CGM data review Diabetes History: Most recent A1C: estimated as 7.6 % on CGM Tatyana Skelton diabetes diagnosed age 63. ? Current Diabetes Medications: Lantus 19 units in am CR 1:15 to 1:20 Metformin 1000mg BID Chromium Picolinate 200mcg ?? Insulin administration site: abdomen Compliance with insulin: excellent ?? Glucose Monitoring: Sensor: Dexcom G6 Number tests prescribed per day: FSBG 2 x a week Justification for testing > 3x a day to prevent severe hyperglycemia, widely fluctuating BS, overnight hypoglycemia Meter uploaded today: yes ?? Hypoglycemia Awareness: lately Aware only when really low, relies on alarms now, - has occurred about once a week BG testing >??than ??5?if having hypoglycemia occurrances Frequency of episodes needing assistancenone ? Hyperglycemia: History of DKA: no ? Diabetes Complications Review: Eyes:No retinopathy, Kidneys: No history of microalbuminuria, proteinuria, decreased kidney function, CKD, dialysis or kidney transplant Feet:Normal shape, no history of foot ulcers, denies burning/numbness/tingling, no previous decreased sensation to monofilament testing, no prior amputations, Autonomic: No history of gastroparesis, problems emptying bladder, inability to detect hypoglycemia,or tachycardia Cardiac: No ??history of CAD, cardiac stents, cardiac bypass surgery,CHF, PVD, CVA ?? Diabetes Prevention: Last eye exam: 2020 Regular rn l and d: no Special shoes: Dental visits regular: yes Flu vaccine: 2020 Covid Vaccination X 3 Pneumovax and Prevnar: due Kidney protection On YENNY-I or ARB: losartan Heart protection On low dose ASA: no On Statin:atorvastatin 40 mg Last urine protein measurement: Lab Results Component Value Date MICROALBUR <3.0 08/22/2019 Last Kidney function: Lab Results Component Value Date CREATININE 0.7 01/16/2021 Last lipid panel: Lipid Panel Lab Results Component Value Date LDLDIRECT 81 01/18/2019 Current Medications: Medications 12/04/21 0813 Medication Sig Taking? metFORMIN (Glucophage) 500 mg Tablet Take 2 tablets by mouth 2 times daily (with meals). potassium chloride ER (K-Dur/Klor-Con) 20 mEq Tab Sust.Rel. Particle/Crystal Take 1 tablet by mouth daily. Take for 14 days. CAPEcitabine (Xeloda) 500 mg tablet Take 1500 mg PO q am and 2000 mg q pm for 14 days.Then take 7 days off for a 21 day cycle. Take within 30 minutes after eating. Indications: metastatic breast carcinoma, ICD10 = C50.911 OneTouch Verio test strips Strip Check blood glucose up to 6 times daily as needed as backup for Dexcom. DX: E13.9 pyridoxine, Vitamin B6, (Vitamin B6) 50 mg Tablet Take 50 mg by mouth daily. Urine Glucose-Ketones Test Strip 50 each by [facility]Non-Drug; Combo Route) route as needed (As needed for severe hyperglycemia). Use to test urine for ketones in event of severe hyperglycemia levothyroxine (SYNTHROID) 175 mcg Tablet Take 1 tablet by mouth daily. glucagon (Baqsimi) 3 mg/actuation Harvey, Non-Aerosol 3 mg by Nasal route as needed (administer dose into one nostril, may repeat in 15 minutes if no response while awaiting Emergency assistance). Patient not taking: Reported on 08/21/2021 Blood-Glucose Meter,Continuous Misc by NOT APPLICABLE route. Blood-Glucose Sensor Device by NOT APPLICABLE route. Lantus Solostar U-100 Insulin pen Inject 18 Units subcutaneously every morning. Patient taking differently: Inject 18 Units subcutaneously every morning. 18 units sulfaSALAzine (Azulfidine) 500 mg Tablet Take 4 tablets by mouth 2 times daily. Dexcom G6 Transmitter Device 1 each by [facility]Non-Drug; Combo Route) route continuous. Change every 90 days. BD Ultra-Fine Short Pen Needle 31 gauge x 5/16 Needle Inject 1 each subcutaneously 4 times daily. ICD 10 Code: E10.9 humaLOG KwikPen 100 unit/mL Insulin Pen Inject 1-6 Units subcutaneously 3 times daily (before meals). ICD 10 Code: E10.9 loratadine (Claritin) 10 mg Tablet Take 10 mg by mouth daily. senna (Senokot) 8.6 mg Tablet Take by mouth daily. polyethylene glycol 3350 (MIRALAX ORAL) Take by mouth. LORazepam (Ativan) 0.5 mg Tablet Take 1 tablet by mouth every 6 hours as needed for Anxiety. May also take one by mouth every 6 hours as needed for nausea. prochlorperazine (Compazine) 10 mg Tablet Take 1 tablet by mouth every 6 hours as needed for Nausea. Patient not taking: Reported on 09/11/2021 ascorbic acid, vitamin C, (VITAMIN C) 500 mg Tablet, Chewable Take 500 mg by mouth daily. vit A/vit C/vit E/zinc/copper (ICAPS AREDS ORAL) Take 1 caplet by mouth daily. estradioL (ESTRACE) 0.01 % (0.1 mg/gram) Cream three times a week. nystatin (MYCOSTATIN) Cream atorvastatin (LIPITOR) 40 mg Tablet Take 1 tablet by mouth daily. ONE TOUCH DELICA 33 gauge Misc 1 each by Misc.(Non-Drug; Combo Route) route 6 times daily. losartan (COZAAR) 50 mg Tablet Take 25 mg by mouth daily. Chromium Picolinate 200 mcg Tablet Take 200 mcg by mouth daily. multivitamin (THERAGRAN) Tablet Take 1 tablet by mouth daily. Calcium Carbonate-Vitamin D3 600 mg(1,500mg) -400 unit Capsule Take by mouth daily. atenolol (TENORMIN) 25 mg tablet Has met with RD? Carb counts Special Diet 3 meals/day * Breakfast: 2 toast, 1 egg and 1 tsp of jam and green tea * Lunch Central salad with crackers * Dinner: * Drinks: * snacks: Exercises: Walking quite a bit 5 times a week. REVIEW OF SYSTEMS: All 12 systems reviewed and negative except as noted per HPI. Physical Exam: There were no vitals taken for this visit. Appearance: pleasant, NAD, AAOx3, speaking in clear sentences Limited exam due to virtual nature of this visit Labs: Future orders routed Assessment: Patient is a 66 y.o. female with PMH significant for UC and??DM type 1 (DINESH) and hypothyroidism. Diabetes in the past had been complicated by frequent hypoglycemia. She is now using a Dexcom CGM. Sought guidance from endocrinology team when she started chemotherapy for breast cancer. She has been struggling a bit with blood sugars on her most recent chemo drug. Review of Dexcom shows she is in target range 54% with an estimated A1C of 7.6%. She is having more variability than we like to see and so we spent time today focusing on discussion on timing of her insulin administration and with a review of optional sites for administration and the importance of site rotation, especiallyif she feels that sometimes her insulin is not working as well as it should. We Reviewed doyle haynes her carb ratio 1:13 and ISF 1:40. Disussed how to use her correction factor for blood sugars over 150. Plan: --Medications: Continue Lantus 18 units daily Humalog CR 1:13, ISF 1:40 for BG > 150 --Monitoring: with CGM check BGs fasting in am, before each meal, 1-2 hours after meals and at bedtime. Target fasting blood sugars 90-140 pre-meal during daytime 90-150 1-2 h post meal below 180 Target A1c 7% for this patient. --Patient will keep log of blood glucose and insulin used for review at next visit or bring CGM reader for download --Diet and exercise: low fat/controlled carb diet & exercise as tolerated to keep weight down. --Prevention: UTD --F/U lab for: A1C, TSH, U alb/cre -routed to [facility] --RTC: Next visit in 3 months with Inés and [facility] 50 minutes were spent reviewing the medical record and available tests, meeting with the patient by telehealth, counseling the patient on medications, recommending changes to insulin dosing, reviewing management of hypoglycemia, and in prescription management, I have reviewed the plan outlined above with the patient and patient has verbalized understanding. documented in this encounter Plan of Treatment Upcoming Encounters Date Type Specialty Care Team Description 10/15/2022 Office Visit Hematology and Oncology Aldo Gaming MD [facility] [place] [address] (Wo rk) documented as of this encounter Goals Goal Patient Goal Associated Recent Patient-Stated? Author Type Problems Progress DH Home Medication Patient No Ken bailey, Compliance and Facing Kayla Lopez Understanding Action Plan [facility] Note: Formatting of this note might [...] uncontrolled documented in this encounter Care Teams Irrigation Tax Assessor Collector Relationship Specialty Start Date End Date None PCP - General 06/11/21 04/02/22 None documented as of this encounter
--- OUTSIDE RECORDS SUMMARY | 2022-09-09 09:37 | XMS_ITS | Encounter Summary ---
:1955 Author Organization [facility] Address [facility] [place] [address] Care Team Providers Name Role Phone None Primary Care Provider Unavailable Encounter Details Date Type Department Care Team Description 12/09/2021 Orders Only Endocrinology at [facility] Heather Sidhu Type [address] [facility] G, CAR DISTRIBUTOR mellitus without Drive [facility] [place] [address] ENDOCRINOLOGY [place] [address] Social History Tobacco Use Types Packs/Day Years [...] Hematology and Oncology Aldo Gaming MD [facility] HEMATOLOGY/[facility] DEPT. [place], [place] [address] (Wo rk) documented as of this encounter Goals Goal Patient Goal Associated Recent Patient-Stated? Author Type Problems Progress DH Home Medication Patient No Ken bailey, Compliance and Facing Kayla Lopez, Understanding Action Plan [facility] Note: Formatting of this note [...] uncontrolled documented in this encounter Care Teams Valve Mechanic Relationship Specialty Start Date End Date None PCP - General 06/11/21 04/02/22 None documented as of this encounter
--- OUTSIDE RECORDS SUMMARY | 2022-09-09 09:37 | XMS_ITS | Encounter Summary ---
:1955 Author Organization [facility] Address [address] [place] [address] Care Team Providers Name Role Phone None Primary Care Provider Unavailable Reason for Visit Reason Onset Date Comments Questions 12/18/2021 Question re labs for 12/25 and about her capecitabine Encounter Details Date Type Department Care Team Description 12/18/2021 Telephone Hematology Oncology at [facility], Questions (Question re [facility] RN labs for 12/[address] her capecitabine) [place] [address] Social History Tobacco Use Types Packs/Day Years [...] Telephone Encounter - [facility], RN - 12/18/2021 10:05 AM EST Tatyana called today to discuss if she needed labs for the 12/25 appointment as she had full labs done 12/15. She is also inquiring if this is her last expected cycle of capecitabine. Dr. Gaming consultedand he stated she did not need updated labs for 12/25. He also confirmed this is her last cycle of the capecitabine. Tatyana was thankful for the information. She will see us as expected on 12/25/21. documented in this encounter Plan of Treatment Upcoming Encounters Date Type Specialty Care Team Description 10/15/2022 Office Visit Hematology and Oncology Aldo Gaming MD [facility] HEMAT[facility] DEPT. [place], [place] [address] (Wo rk) documented as of this encounter Goals Goal Patient Goal Associated Recent Patient-Stated? Author Type Problems Progress DH Home Medication Patient No Ken ds, Compliance and Facing Kayla Lopez, Understanding Action Plan [facility] Note: Formatting of this note might be d ifferent from the original. Prevent / slow progression of disease as assessed by labs and scans in clinic every 3 months or more often when indicated documented as of this encounter Visit Diagnoses Not on filedocumented in this encounter Care Teams Grab Hooker Relationship Specialty Start Date End Date None PCP - General 06/11/21 04/02/22 None documented as of this encounter
--- OUTSIDE RECORDS SUMMARY | 2022-09-09 09:37 | XMS_ITS | Encounter Summary ---
:1955 Author Organization [facility] [place] [address] Care Team Providers Name Role Phone None Primary Care Provider Unavailable Encounter Details Date Type Department Care Team Description 09/11/2021 Orders Only Endocrinology at [facility] Heather Sidhu, [facility] [place] [address] [facility] [phone] ENDOCRINOLOGY [place], [place] [address] (Wo rk) Social History Tobacco [...] and Oncology Aldo Gaming MD [facility] HEMATOLOGY/[facility] DEPT. [place], [place] [address] (Wo rk) documented as of this encounter Goals Goal Patient Goal Associated Recent Patient-Stated? Author Type Problems Progress DH Home Medication Patient No Ken bailey, Compliance and Facing Kayla Lopez, Understanding Action Plan [facility] Note: Formatting of this note might be d ifferent from the original. Prevent / slow progression of disease as assessed by labs and scans in clinic every 3 months or more often when indicated documented as of this encounter Visit Diagnoses Not on filedocumented in this encounter Care Teams Sprinkler Worker Relationship Specialty Start Date End Date None PCP - General 06/11/21 04/02/22 None documented as of this encounter
--- OUTSIDE RECORDS SUMMARY | 2022-09-09 09:37 | XMS_ITS | Encounter Summary ---
:1955 Author Organization [facility] [place] [address] Care Team Providers Name Role Phone None Primary Care Provider Unavailable Reason for Visit Reason Onset Date Comments Medication Refill 09/11/2021 Refill capecitabine Encounter Details Date Type Department Care Team Description 09/11/2021 Telephone Hematology Oncology at [facility], Medication Refill [facility] RN (Refill capecitabine) [address] [place] [phone] Social History Tobacco Use Types Packs/Day [...] Telephone Encounter - [facility], RN - 09/11/2021 3:41 PM EDT Oral Chemotherapy Check Note 09/11/2021 Taytana Skelton, 1955 Prescriptions for oral chemotherapy were reviewed as follows: Oral Chemotherapy Order : Capecitabine 1500 mg q am and 2000 mg q pm Oral for 14 days then 7 days off. Order details: ?? Dose: 1500 mg am-2000 mg pm ?? Route: By mouth ?? Quantity to be dispensed #: 98 ?? Number of refills: 3 ?? Instructions: Taking 3 tablets in the morning and 4 tablets in the evening to auto mechanics instructor side effects. ?? Cycle number and length: ongoing ?? Start date: 09/12/21 Plan of care compared to information in the medical record, including note from provider on 09/11/21. The prescription was found To be complete and accurate. It was e-prescribed to [facility] pharmacy. documented in this encounter Plan of Treatment Upcoming Encounters Date Type Specialty Care Team Description 10/15/2022 Office Visit Hematology and Oncology Aldo Gaming MD [facility] HEMATOLOGY/[facility] DEPT. [place], [place] [address] (Wo rk) documented as of [...] on filedocumented in this encounter Care Teams Water Systems Engineer Relationship Specialty Start Date End Date None PCP - General 06/11/21 04/02/22 None documented as of this encounter
--- OUTSIDE RECORDS SUMMARY | 2022-09-09 09:37 | XMS_ITS | Encounter Summary ---
:1955 Author Organization [facility] [address] Care Team Providers Name Role Phone None Primary Care Provider Unavailable Reason for Visit Reason Onset Date Comments Medication Refill 03/19/2022 Encounter Details Date Type Department Care Team Description 03/19/2022 Refill Endocrinology at [facility] Nargis Echeverria, [facility] [place] [address] [facility] [phone] [place], [place] [address] (Wo rk) Social History Tobacco [...] Visit Hematology and Oncology Aldo Gaming MD [facility] ER HEMATOLOGY/[facility] DEPT. [place], [place] [address] (Wo rk) documented as of this encounter Goals Goal Patient Goal Associated Recent Patient-Stated? Author Type Problems Progress DH Home Medication Patient No Ken bailey, Compliance and Facing Kayla Lopez, Understanding Action Plan [facility] Note: Formatting of this note might be d ifferent from the original. Prevent / slow progression of disease as assessed by labs and scans in clinic every 3 months or more often when indicated documented as of this encounter Visit Diagnoses Not on filedocumented in this encounter Care Teams Allergist/Pediatric Pulmonologist Relationship Specialty Start Date End Date None PCP - General 06/11/21 04/02/22 None documented as of this encounter
--- OUTSIDE RECORDS SUMMARY | 2022-09-09 09:37 | XMS_ITS | Encounter Summary ---
:1955 Author Organization [facility] Address [address] [place] [address] Care Team Providers Name Role Phone None Primary Care Provider Unavailable Encounter Details Date Type Department Care Team Description 11/13/2021 Office Visit Hematology/Oncology Celestina Gaming MD [facility] DR HEMATOLOGY/[place] [address] Malignant neoplasm of at [facility] Karli Leavitt APRN [address] [place] [address] DR HEMATOLOGY ONCOLOGY [place], [place] [id number] upper-outer quadrant [address] [place] [address] Drive of right breast in [place], [place] female, [place] [phone] receptor negative [phone] Social History Tobacco Use Types Packs/Day Years [...] Sign Reading Time Taken Comments Blood Pressure 131/77 11/13/2021 10:25 AM EST Pulse 78 11/13/2021 10:25 AM EST Temperature 36.1 ??C (96.9 ??F) 11/13/2021 10:25 AM EST Respiratory Rate 20 11/13/2021 10:25 AM EST Oxygen Saturation 99% 11/13/2021 10:25 AM EST Inhaled Oxygen Concentration - - Weight 62.6 kg (138 lb) 11/13/2021 10:25 AM EST Height 171 cm (5' 7.32) 11/13/2021 10:25 AM EST Body Mass Index 21.41 11/13/2021 10:25 AM EST documented in this encounter Progress Notes Karli Leavitt, [facility] - 11/13/2021 10:30 AM EST Subjective: Patient ID: Tatyana Skelton is [...] Biopsies negative. ?? CT scan 07/25/13 ( [facility]) : Thickening of the wall of the mid sigmoid colonwith pericolonic infiltration and reactive adenopathy. Trace amount of pelvic and abdominal free fluid. ..... ?? Prednisone remotely in the past x2 with flare up , last use about 22 years ago. ?? Sulfasalazine 2500 mg daily - increased to 4 g daily 08/2013. ??? HTN (hypertension) ??? Hypothyroidism HPI Patient ID: Tatyana Skelton is a 65 y.o. female. ?? HPI The patient is a 65-year-old female seen in the [facility]. ?? 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 ER was negative, CA was negative, HER-2 was negative. 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 She has remained on a Capecitabine dose of 1500mg am and 2000mg pm. She is scheduled to begin C7 Capecitabine on 11/14/21. Tatyana is doing pretty well today. She is a bit tired, as she often feels the most fatigue on her Capecitabine off week, which ends today. None the less she has been her usual active self, hiking and snowshoeing. She has some cracking on her right thumb with a few small fissures, made worse she thinks by wreathmaking. She has a few cuts on her left thumb as well. She has had no peeling or swelling of palms. Shehas not had any additional peeling of feet. Tatyana reports her big toes are tender, but not peeling. She says they are not so tender as to prevent her from activity. She has not noticed cracking on her feet. She had had some clavicular area discomfort last visit. This seem to have resolved. She has decreased her use of hand weights. Today Tatyana reports a weird feeling behind her left shoulder. It feels like a muscle is pulling. She demonstrates full ROM of both arms in the exam room. She has not noticedany swelling, lumps or bumps in her axillary or chest wall areas. The chest muscle pain feels different. She gets a weird feeling behind the left hsoulder. When she brings her arm around it feels like a muscle is pulling. She had a bump there which she scratched and now looks like a blister had popped. She is concerned as she thought the middle of it looked dark, and she wonders if it was a tick. She doesn't recall seeing an engorged tick. Tatyana did have a few cold sores which have resolved. Her appetite is good and her bowels are moving well. She does report a day or two of diarrhea which doesn't last beyond that. She also reports having a vaginal yeast infection and she took Clotrimazole. She denies vaginal discharge today but says her vaginal tissue feels irritated and itchy. She uses Estradiol cream, and maytry a little more. We also talked about using OTC lubricant. She has not had fever or chills. She continues to monitor her blood sugars routinely throughout the day. Sometimes they are above 200. She usually compensates with a sliding scale dose. She has no new breathing issues or cough. No fever or chills. Allergies Allergen Reactions ??? Contrast [Iodine And Iodide Containing Products] Nausea And Vomiting and Other (See Comments) Neck swelling ??? Lisinopril Other (See Comments) Caused a dry cough ??? Lactose Diarrhea Current Medications ??? OneTouch Verio test strips Strip ??? pyridoxine, Vitamin B6, (Vitamin B6) 50 mg Tablet ??? CAPEcitabine (Xeloda) 500 mg tablet ??? Urine Glucose-Ketones Test Strip ??? levothyroxine (SYNTHROID) 175 mcg Tablet ??? glucagon (Baqsimi) 3 mg/actuation [place], Non-Aerosol ??? Blood-Glucose Meter,Continuous Misc ??? Blood-Glucose Sensor Device ??? Lantus Solostar U-100 Insulin pen ??? sulfaSALAzine (Azulfidine) 500 mg Tablet ??? Leafcom G6 Transmitter Device ??? BD Ultra-Fine Short [...] A/vit C/vit E/zinc/copper (ICAPS AREDS ORAL) ??? metFORMIN (Glucophage) 500 mg Tablet ??? estradioL (ESTRACE) 0.01 % (0.1 mg/gram) [...] Review of Systems Constitutional: Positive for fatigue. Mostly in the off week. HENT: Positive for mouth sores. Negative for rhinorrhea. Eyes: Negative for visual disturbance. Respiratory: Negative for cough and shortness of breath. Cardiovascular: Negative for chest pain and palpitations. Gastrointestinal: Positive for diarrhea. Negative for constipation, nausea and vomiting. A few mild episodes not requiring treatment Endocrine: Increased variations in blood sugar Genitourinary: Negative. Musculoskeletal: Positive for arthralgias and back pain. Ankle pain Skin: Positive for wound. Cuts on thumbs. Scratched lesion on back of left shoulder Neurological: Negative. Hematological: Negative. Psychiatric/Behavioral: Negative. Objective: [...] General: Skin is warm and dry. Findings: Lesion present. Comments: Well healing incisions at bilateral mastectomy sites. Patient has small 1cm area of raw skin on back of left shoulder that has appearance of opened blister. No drainage or surrounding erythema. Neurological: Mental Status: She is alert and oriented to person, place, and time. Coordination: Coordination normal. Psychiatric: Mood and Affect: Mood normal. Thought Content: Thought content normal. BP 131/77 (Patient Position: Sitting) Pulse 78 Temp 36.1 ??C (96.9 ??F) (Temporal) Resp 20 Ht 171 cm (5' 7.32) Wt 62.6 kg (138 lb) SpO2 99% BMI 21.41 kg/m?? 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 She has remained on a Capecitabine dose of 1500mg am and 2000mg pm. CBC and CMP were reviewed with Tatyana today and meet treatment parameters. C7 is due to start tomorrow. We discussed monitoring for development of fever, fatigue or muscle aches monitoring for Lyme disease. I encouraged her to assess area for rash or non healing. Plan: Continue C7 Capecitabine at same dose of 2000/1500mg daily 14/21 days and return in 3 weeks. Discussed with Tatyana that if Capecitabine toxicity symptoms increase, stop the drug and call clinic.Monitor lesion left posterior shoulder and call for fever or malaise symptoms. Continue good oral hydration and exercise as tolerated. RTC 3 weeks for evaluation. documented in this encounter Plan of Treatment Upcoming Encounters Date Type Specialty Care Team Description 10/15/2022 Office Visit Hematology and Oncology Aldo Gaming MD [facility] HEMATOLOGY/[facility] [place] [address] (Wo rk) documented as of this encounter Goals Goal Patient Goal Associated Recent Patient-Stated? Author Type Problems Progress DH Home Medication Patient No Ken ds, Compliance and Facing Kayla Lopez, Understanding Action Plan [facility] Note: Formatting of this note [...] negative documented in this encounter Care Teams Creative Services Director Relationship Specialty Start Date End Date None PCP - General 06/11/21 04/02/22 None documented as of this encounter
--- OUTSIDE RECORDS SUMMARY | 2022-09-09 09:37 | XMS_ITS | Encounter Summary ---
:1955 Author Organization [facility] [place] [address] Care Team Providers Name Role Phone Mely Solano MD Primary Care Provider Encounter Details Date Type Department Care Team Description 06/17/2022 Office Visit General Surgery at Demetra Fernandez of breast [facility] MD Maxim cancer [facility] [place], [place] GENERAL SURGERY [id number] [place] [address] [phone] Social History Tobacco Use Types Packs/Day Years [...] documented as of this encounter Progress Notes Demetra Fernandez MD - 06/17/2022 1:15 PM EDT HPI?? Sangeeta returns in surgical follow up after b/l mastectomy for triple negative right breast cancer. Sangeeta presented for screening mammogram in October,. Left breast was normal but in the right breast there was a questionable asymmetry at 10:00. Call back views confirmed a solid mass measuring 19mm at largest diameter. Biopsy revealed triple negative microinvasive ILC. MRI was then obtained which revealed: ?? Approximately 3.2 x 1.4 x 3.2 cm region of multifocal masses with abnormal enhancement centered approximately 6.5 cm from the nipple in the right upper outer quadrant (9:00 to 12:00 radian). There are two additional abnormally enhancing masses measuring 1.0 cm maximally in the right upper inner quadrant at the 2:00 radian approximately 4 cm from the nipple, highly suspicious for additional sites of malignancy. ?? No masses or sites of abnormal enhancement in the left breast. ?? No suspicious axillary or internal mammary adenopathy within the above limitations. No chest wall or skin abnormality visualized. ?? IMPRESSION 1. ??Multifocal multicentric biopsy-proven right breast malignancy. 2. ??No left breast malignancy within the limitations of technique as detailed Above. ?? Sangeeta was treated with neoadjuvant ddAC-T . She then opted for b/l mastectomy with sentinel node excision on the right. Pathology revealed: DIAGNOSIS A - Right breast, mastectomy, post neoadjuvant therapy: ?? - Invasive lobular carcinoma with pleomorphic features (see ? Synoptic Report and Discussion). ?? - Fibrocystic changes (cysts, fibroadenomatous change, ? mild usual ductal hyperplasia). ?? - Benign skin and nipple. B - Right axillary sentinel lymph node, excision: ?? - Three lymph nodes negative for malignancy (0/3). ?? - No treatment effect present. C - Left breast, mastectomy: ?? - Benign breast tissue. ?? - Benign skin and nipple. Specimen ?Procedure: ??Total mastectomy ?Specimen Laterality: ??Right Tumor ?Tumor Site: ??Upper outer quadrant ?Histologic Type: ??Invasive lobular carcinoma ? Histologic Type Comments: ??with pleomorphic features ?Glandular (Acinar) / Tubular Differentiation: ??Score 3 ?Nuclear Pleomorphism: ??Score 3 ?Mitotic Rate: ??Score 1 ?Overall Grade: ??Grade 2 (scores of 6 or 7) ?Tumor Size:?25 Millimeters (mm) . SYNOPTIC ?Ductal Carcinoma In Situ (DCIS): ??Not identified ?Lobular Carcinoma In Situ (LCIS): ??Present ?Tumor Extent ? Skin Invasion: ??Skin is present and uninvolved ?Lymphovascular Invasion: ??Present ?Treatment Effect in the Breast: ??No definite response to presurgical therapy ? in the invasive carcinoma ?Treatment Effect in the Lymph Nodes: ??No lymph node metastases and no fibrous ? scarring or histiocytic aggregates in the nodes Margins ?Invasive Carcinoma Margins: ??Uninvolved by invasive carcinoma ? Distance from Closest Margin (Millimeters): ??1.5 mm ? Closest Margin(s): ??Posterior ? Distance from Other Margins ?Anterior Margin (Millimeters): ??14 Lymph Nodes ?Regional Lymph Nodes: ??Uninvolved by tumor cells ? Total Number of Lymph Nodes Examined: ??3 ? Number of Imboden Nodes Examined: ??3 Pathologic Stage Classification (pTNM, AJCC 8th Edition) ?TNM Descriptors: ??y (post-treatment) ?Primary Tumor (pT): ??pT2 ?Regional Lymph Nodes Modifier: ??(sn): Imboden node(s) evaluated. ?Regional Lymph Nodes (pN): ??pN0 Tumor Block(s): ??A7 CAP eCC December 2019 Annual Release DISCUSSION The stroma associated with the invasive tumor shows foci of dense fibrosis which ??may represent focal/mild treatment response; however, additional features of ??treatment response (chronic inflammation, histiocytes, stromal edema, and stromal ??calcifications) are not identified. Grossly, two areas of dense fibrous tissue were identified in the upper inner ??quadrant corresponding to possible satellite lesions described on MRI (performed on ??12/26/20). Microscopic sections corresponding to these areas, as well as additional ??nontargeted sections taken from the upper inner quadrant, show benign breast ??tissue with fibrocystic changes. Additional satellite tumors are not grossly or ??microscopically identified. Receptors were rechecked and residual disease was triple negative. Sangeeta completed capecitabine (6 months) during which she had foot pain. This has resolved. Her energy is recovered. She did, unfortunantely, breast her wrist hiking recently and had surgery yesterday forthis. She otherwise has no new medical issues. No fevers, chills, weight changes, sob, chest pain, bone pains, abdominal pains, headaches, vision changes. ? Past Medical History: Diagnosis Date ??? History of diverticulitis 09/17/2014 ??? HTN (hypertension) ? Hypothyroidism ? Malignant neoplasm of upper-outer quadrant of right breast in female, estrogen receptor negative01/03/2021 ??? UC (ulcerative colitis) 09/11/2013 ?? FH Great great grandmother with breast cancer. Negative for genetic mutation SH: with 3 children. Grandchildren in [place]. 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 Review of Systems See HPI Gets car and motion sick. Has not had general anesthesia in the past ?? Objective: Physical Exam?? Well appearing and in nad.??bilateral chest fontana with well healed mastectomy scars. No skin changesor nodularity. ROM of the left arm is intact (right arm in sling/cast). No supraclavicular or axillary adenopathy. ?? Imaging: none Assessment and Plan: ?? Sangeeta is a 66 yo female with a history of triple negative right breast cancer. She is doing well with no evidence of recurrent disease or systemic disease. Plan follow up prn as she had b/l mastectomy and will continue to see Dr. Gaming. documented in this encounter Plan of Treatment Upcoming Encounters Date Type Specialty Care Team Description 10/15/2022 Office Visit Hematology and Oncology Aldo Gaming MD [facility] HEMATOLOGY/[facility] [place] [address] (Wo rk) documented as of this encounter Goals Goal Patient Goal Associated Recent Patient-Stated? Author Type Problems Progress DH Home Medication Patient No Ken ds, Compliance and Facing Kayla Lopez, Understanding Action Plan [facility] Note: Formatting of this note might be d ifferent from the original. Prevent / slow progression of disease as assessed by labs and scans in clinic every 3 months or more often when indicated documented as of this encounter Visit Diagnoses Diagnosis History of breast cancer Personal history of malignant neoplasm o f breast documented in this encounter Care Teams Journeyman Plumber Relationship Specialty Start Date End Date Mely Solano MD PCP - General Family Medicine 04/03/[address] [place] [phone] documented as of this encounter
--- OUTSIDE RECORDS SUMMARY | 2022-09-09 09:37 | XMS_ITS | Encounter Summary ---
:1955 Author Organization [facility] [address] Care Team Providers Name Role Phone Mely Solano MD Primary Care Provider Encounter Details Date Type Department Care Team Description 08/06/2022 Hospital Encounter Gastroenterology at [facility] [place] [address] [place] [address] [place] [address] Social History Tobacco Use Types Packs/Day [...] Nasal route 2 each 1 05/30 mg/actuation [place], as needed (administer Non-Aerosol dose into one [...] by 50 strip 1 09/11/2021 Test Strip [facility]Non-Drug; Combo Route) route as needed (As needed [...] each by 600 each 3 01/18/2019 gauge [facility].(Non-Drug; Combo Route) route 6 times daily. losartan [...] of right breast in female, estrogen receptor [id number], Z17.1 EXAM: HEENT: Airway examined, oropharynx clear [...] Aldo Gaming MD [facility] HEMATOLOGY/[place], [place] [address] (Wo rk) documented as of this encounter Goals Goal Patient Goal Associated Recent Patient-Stated? Author Type Problems Progress DH Home Medication Patient No Ken bailey, Compliance and Facing Kayla Lopez, Understanding Action Plan [facility] Note: Formatting of this note [...] results section. COLONOSCOPY FLEXIBLE, 08/06/2022 9:23 AM [place] in 3 yea rs for WITH BX [...] 08/06/2022 AM EDT 10:02 AM EDT Narrative [facility] - 08/06/2022 10:02 AM EDT Specimen requisition ordered. ??Separate Pathology report to follow Brett Treviño MD PATHOLOGY/CYTOLOGY ORDERABLE S Performing Organization Address City/[facility]/[place] [address] Specimen to Pathology (08/06/2022 10:02 AM EDT) Specimen Anatomical Collection Method Collection Time Receive d Time (Source) Location / / Volume Laterality AP Specimen 08/06/2022 10:02 08/06/2022 AM EDT 10:02 AM EDT Narrative [facility] - 08/06/2022 10:02 AM EDT Specimen requisition ordered. ??Separate Pathology report to follow Brett Treviño MD PATHOLOGY/CYTOLOGY ORDERABLE S Performing Organization Address City/[facility]/[place] [address] Specimen to Pathology (08/06/2022 10:02 AM EDT) Specimen Anatomical Collection Method Collection Time Receive d Time (Source) Location / / Volume Laterality AP Specimen 08/06/2022 10:02 08/06/2022 AM EDT 10:02 AM EDT Narrative [facility] - 08/06/2022 10:02 AM EDT Specimen requisition ordered. ??Separate Pathology report to follow Brett Treviño MD PATHOLOGY/CYTOLOGY ORDERABLE S Performing Organization Address City/[facility]/[place] [address] Specimen to Pathology (08/06/2022 10:02 AM EDT) Specimen Anatomical Collection Method Collection Time Receive d Time (Source) Location / / Volume Laterality AP Specimen 08/06/2022 10:02 08/06/2022 AM EDT 10:02 AM EDT Narrative [facility] - 08/06/2022 10:02 AM EDT Specimen requisition ordered. ??Separate Pathology report to follow Brett Treviño MD PATHOLOGY/CYTOLOGY ORDERABLE S Performing Organization Address City/[facility] [place] [address] Surgical Pathology Report (08/06/2022 9:48 AM EDT) Component Value Ref Test Analysis Performed At [facility] Range Method Time Signature Surgical [id number] ? Location: 4; [facility]; [facility] Report The signing pathologist has (i) examined [...] Verified: ??08/10/2022 13:19 ??Pathologist Performed at: ??-[facility] Dept. of Pathology, [place], [place] SPECIMEN(S) SUBMITTED A - Right colon [...] Organization Address City/State/[place] [address] COLONOSCOPY (08/06/2022 9:14 AM EDT) Patholo gist Method Time Signature COLONOSCOPY [facility] Endoscopy Procedure Date: 08/06/2022 9:14 AM ? Patient Name: Tatyana Skelton ? Date of : 1955 ? Age: 67 ? Order #: [id number] ? Instrument Name: [id number] ? Procedure: ? Colonoscopy Indications: ? High [...] preparation was evaluated ? using the BBPS ([place] el ? Preparation Scale) with sc ores [...] ? - Patient has a contact nu mayito ? available for emergencies. The ? signs [...] I personally performed the entire procedure. ? Bertt Treviño Brett Treviño, 08/06/2022 10:06:54 AM Number [...] MAR Action Action Date Dose Rate Site lactated ringers infusion New Bag 08/06/2022 9:16 AM EDT 100 mL/hr 100 mL/hr 100 mL/hr, Intravenous, CONTINUOUS, Starting on Kacy 08/06/22 at 0930, Until Kacy 08/06/22 at 1251, Endoscopy (Day of Procedure) documented in this encounter Active and Recently [...] Guo RN)0939 (Given - Provider: Yadira Guo RN) ONCE PRN, Starting on Kacy 08/06/22 at 0929 , Until Kacy 08/06/22 at 1251, Intra- Operative (Intra-Procedure), Routine midazolam (pf) (Versed) (1 mg/mL) multi-dose injection (CANCELED ) 928 (Given - Provider: Yadira Guo RN)0932 (Given - Provider: Yadira Guo RN)0935 (Given - Provider: Yadira Guo, RN)0939 (Given - Provider: Yadira Guo RN)0942 (Given - Provider: Yadira Guo RN) ONCE PRN, Starting on Kacy 08/06/22 at 0929 , Until Kacy 08/06/22 at 1251, Intra- Operative (Intra-Procedure), Routine documented in this encounter Care Teams Care Process Manager Relationship Specialty Start Date End Date Mely Solano MD PCP - General Family Medicine 04/03/[address] [place] [id number] documented as of this encounter
--- OUTSIDE RECORDS SUMMARY | 2022-09-09 09:37 | XMS_ITS | Encounter Summary ---
:1955 Author Organization [facility] [place] [address] Care Team Providers Name Role Phone Mely Solano MD Primary Care Provider Reason for Visit Reason Onset Date Comments Pump/sensor 04/02/2022 Encounter Details Date Type Department Care Team Description 04/02/2022 Telephone Endocrinology at [facility] Kristine Whitaker Pump/[place] [phone] Social History Tobacco Use Types Packs/Day [...] this encounter Miscellaneous Notes Telephone Encounter - Apple Otero - 04/09/2022 7:41 AM EDT [facility] renewal order form faxed to Telephone Encounter - Kristine Hdez - 04/06/2022 11:32 AM EDT Medicare CGM renewal order form from [facility]. Filled out. Dr. Pack will sign. Secretaries will fax. Telephone Encounter - Kristine Hdez - 04/02/2022 9:13 AM EDT Received order form from [facility] Will complete as soon as possible documented in this encounter Plan of Treatment Upcoming Encounters Date Type Specialty Care Team Description 10/15/2022 Office Visit Hematology and Oncology Aldo Gaming MD [facility] HEMATOLOGY/[facility] DEPT. [place], [place] [address] (Wo rk) documented as of this encounter Goals Goal Patient Goal Associated Recent Patient-Stated? Author Type Problems Progress DH Home Medication Patient No Ken ds, Compliance and Facing Kayla Lopez, Understanding Action Plan [facility] Note: Formatting of this note might be d ifferent from the original. Prevent / slow progression of disease as assessed by labs and scans in clinic every 3 months or more often when indicated documented as of this encounter Visit Diagnoses Not on filedocumented in this encounter Care Teams Entry Level Buyer Relationship Specialty Start Date End Date Mely Solaon MD PCP - General Family Medicine 04/03/[address] [place] [id number] documented as of this encounter
--- OUTSIDE RECORDS SUMMARY | 2022-09-09 09:37 | XMS_ITS | Encounter Summary ---
:1955 Author Organization [facility] [address] Care Team Providers Name Role Phone None Primary Care Provider Unavailable Encounter Details Date Type Department Care Team Description 11/06/2021 Specialty [address] at [facility] [place] [place] [address] Social History Tobacco Use Types Packs/Day [...] of this encounter Progress Notes Mely House [facility] - 11/06/2021 9:03 AM EST Clinical Management Plan: Refill Specialty Pharmacy Consultation; Mely House [facility] Comprehensive Medication Management (CMM) Tatyana Skelton Ms. [...] beneficiary Provider: plan sponsor [facility] Follow[facility]up Time Spent: 1-15 min Method of Contact: by telephone Cognitive Ability: good Cognitive Impairment Status Verified this Year: no Allergies and Drug intolerance: Allergies Allergen Reactions ??? Contrast [Iodine And Iodide Containing Products] Nausea And Vomiting and Other (See Comments) Neck swelling ??? Lisinopril Other (See Comments) Caused a dry cough ??? Lactose Diarrhea Medication Reconciliation Discrepancies (compared to [facility] med list) -none Specialty Pharmacy Refill Questionnaire Refill Questionnaire 11/06/2021 What is the name of the specialty medication you are refilling? Capecitabine Are you taking any new medications? No Any new medical condition? 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 No Any missed doses since your last fill? No Any new side effects that are bothersome? Yes Please explain cracked skin on thumbs, callous on big toe and vaginal itching What date will you need this fill by? 11/14/2021 Adherence: Specialty Med Adherence Patient Demonstrates Understanding of Importance of Adherence: Yes Educational Information or Adherence Tools Provided: No Patient Reported X Missed Doses in the Last Month: 0 Provider-Estimated Medication Adherence Level: 90-100% Adherence Tools Used: alarm Pt understands no changes to current drug regimen were made at the appointment and that [facility] is providing recommendations (summary located at top of note) for provider review and follow up. Mely House RPH 11/06/21 9:08 AM documented in this encounter Plan of Treatment Upcoming Encounters Date Type Specialty Care Team Description 10/15/2022 Office Visit Hematology and Oncology Aldo Gaming MD [facility] HEMATOLOGY[place] [address] (Wo rk) documented as of this encounter [...] on filedocumented in this encounter Care Teams Logistics Engineer Relationship Specialty Start Date End Date None PCP - General 06/11/21 04/02/22 None documented as of this encounter
--- OUTSIDE RECORDS SUMMARY | 2022-09-09 09:37 | XMS_ITS | Encounter Summary ---
:1955 Author Organization [facility] [place] [address] Care Team Providers Name Role Phone None Primary Care Provider Unavailable Encounter Details Date Type Department Care Team Description 03/05/2022 Office Visit Endocrinology at 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[facility]), managed as type [address] [place] [phone] ENDOCRINOLOGY [place] [id number] Social History Tobacco Use Types Packs/Day Years [...] Sign Reading Time Taken Comments Blood Pressure 133/70 03/05/2022 11:17 AM EDT Pulse 77 03/05/2022 11:17 AM EDT Temperature 36.8 ??C (98.3 ??F) 03/05/2022 11:17 AM EDT Respiratory Rate - - Oxygen Saturation 94% 03/05/2022 11:17 AM EDT Inhaled Oxygen Concentration - - Weight 65.2 kg (143 lb 12.8 oz) 03/05/2022 11:17 AM EDT Height 170.2 cm (5' 7) 03/05/2022 11:17 AM EDT Body Mass Index 22.52 03/05/2022 11:17 AM EDT documented in this encounter Patient Instructions Patient InstructionsKiHeather smalls APRN - 03/12/2022 6:44 PM EDT Plan: Update labs today --Medications: No changes to your insulin dosing Decrease meal time insulin by 20-50% for any meal prior to anticipated exercise following that meal. Trial a looser carb ratio for evening meal of 1:20 to see of this helps prevent low BGs after dinner Administer your meal time insulin 15-20 minutes before meals. --Monitoring: with CGM check BGs fasting in am, before each meal, 1-2 hours after meals and at bedtime. - WITH SMBG BID-TID before breakfast, before lunch, and 2 hours after supper Target fasting blood sugars 90-140 pre-meal during daytime 90-150 1-2 h post meal below 180 Target A1c 7% for this patient. --Patient will keep log of blood glucose and insulin used for review at next visit or bring CGM reader for download --Diet and exercise: low fat/controlled carb diet & exercise as tolerated to keep weight down. --Prevention: discuss pneumonia series and Shingrex with PCP --F/U lab for: labs today --RTC: Next visit in 6 months. documented in this encounter Progress Notes Heather Conte APRN - 03/05/2022 11:30 AM EDT Date of Visit: 03/04/2022 Reason for Visit: Follow-up diabetes Brief History: Tatyana Skelton is a 67 y.o. female with PMH significant for UC and??DM type 1 (DINESH)??and??hypothyroidism. ??Diabetes in the past??had??been complicated by frequent hypoglycemia. She is now using a Dexcom CGM.??Sought guidance from endocrinology team when she??started chemotherapy for breast cancer. Interval Hx: She admits to having issues with a sweet tooth. She is managing DM with MDI and with a Dexcom CGM, she does not necessarily want a pump. She does graze through the day. She does administerher insulin 15-20 minutes before she eats though 4 times a week she does go low to 70s, always aftermeals, she does not always feel these, alarms will alert her. She feels she is a good carb counter. She has completed her chemotherapy for breast cancer. She sees oncology q 3 months for now. Plan from previous visit note:Inés 12/16/21 Patient is a 66 y.o. female with PMH significant for UC and??DM type 1 (DINESH)??and??hypothyroidism. ??Diabetes in the past??had??been complicated by frequent hypoglycemia. She is now using a Dexcom CGM.??Sought guidance from endocrinology team when she??started chemotherapy for breast cancer. ?? She has been struggling a bit with [...] correction factor for blood sugars over 150. ?? Plan: ?? --Medications: Continue Lantus 18 units daily Humalog CR 1:13, ISF 1:40 for BG > 150 ?? --Monitoring: with CGM check BGs fasting in am, before each meal, 1-2 hours after meals and at bedtime. ?Target fasting blood sugars 90-140 ?pre-meal during daytime 90-150 ?1-2 h post meal below 180 ?Target A1c 7% for this patient. ?? --Patient will keep log of blood glucose and insulin used for review at next visit or bring CGM reader for download ?? --Diet and exercise: low fat/controlled carb diet & exercise as tolerated to keep weight down. --Prevention: UTD --F/U lab for: ??A1C, TSH, U alb/cre -[facility] --RTC: Next visit in??3??months with Inés and 6 months with (previous [place] patient) Diabetes History: Most recent A1C: estimated as 7.6 % on CGM ?? Tatyana Skelton??diabetes diagnosed age 63. ? Current Diabetes Medications: Lantus 19 units in am CR 1:15 Metformin 1000mg BID Chromium Picolinate 200mcg ?? Insulin administration site:??abdomen ?Compliance with insulin:??excellent ?? Glucose Monitoring: Sensor:??Dexcom G6 Number tests prescribed per day:??FSBG 2 x a week?? Justification for testing > 3x a day to prevent severe hyperglycemia, widely fluctuating BS, overnight hypoglycemia Meter uploaded today:??yes ?Hypoglycemia ?Awareness:??lately?Aware only when really low, relies on alarms now, BG testing >??than ??5?if having hypoglycemia occurrances ?Frequency of episodes needing assistancenone ? Hyperglycemia: ?History of DKA:??no ? Diabetes Complications Review: Eyes: No retinopathy Kidneys: No history of microalbuminuria, proteinuria, decreased kidney function, CKD, dialysis or kidney transplant Feet:Normal shape, no history of foot ulcers, denies burning/numbness/tingling, no previous decreased sensation to monofilament testing, no prior amputations, Autonomic: No history of gastroparesis, problems emptying bladder, inability to detect hypoglycemia,or tachycardia Cardiac: No ??history of CAD, cardiac stents, cardiac bypass surgery,CHF, PVD, CVA ?? Diabetes Prevention: ?Last eye exam:??2020 - next scheduled for April 2022 ?Regular strike on machine operator:??no ?Special shoes: ?Dental visits regular:??yes ?Flu vaccine: 2020 Covid Vaccination X 3 ?Pneumovax and Prevnar:??due ?Kidney protection On YENNY-I or ARB:??losartan ?Heart protection ?On low dose ASA:??no ?On Statin:atorvastatin 40 mg Last urine protein measurement: Lab Results Component Value Date MICROALBUR <3.0 08/22/2019 Last Kidney function: Lab Results Component Value Date CREATININE 0.7 01/16/2021 Last lipid panel: Lipid Panel Lab Results Component Value Date LDLDIRECT 81 01/18/2019 Current Medications: Medications 03/05/22 1116 Medication Sig Taking? metFORMIN (Glucophage) 500 mg Tablet Take 2 tablets by mouth 2 times daily (with meals). Yes OneTouch Verio test strips Strip Check blood glucose up to 6 times daily as needed as backup for Dexcom. DX: E13.9 Yes Urine Glucose-Ketones Test Strip 50 each by Misc.(Non-Drug; Combo Route) route as needed (As needed for severe hyperglycemia). Use to test urine for ketones in event of severe hyperglycemia Yes levothyroxine (SYNTHROID) 175 mcg Tablet Take 1 tablet by mouth daily. Yes glucagon (Baqsimi) 3 mg/actuation [employer], Non-Aerosol 3 mg by Nasal route as needed (administer dose into one nostril, may repeat in 15 minutes if no response while awaiting Emergency assistance). Yes Blood-Glucose Meter,Continuous Misc by NOT APPLICABLE route. Yes Blood-Glucose Sensor Device by NOT APPLICABLE route. Yes Lantus Solostar U-100 Insulin pen Inject 18 Units subcutaneously every morning. Patient taking differently: Inject 18 Units subcutaneously every morning. 18 units Yes sulfaSALAzine (Azulfidine) 500 mg Tablet Take 4 tablets by mouth 2 times daily. Yes Dexcom G6 Transmitter Device 1 each by Misc.(Non-Drug; Combo Route) route continuous. Change every 90 days. Yes BD Ultra-Fine Short Pen Needle 31 gauge x 5/16 Needle Inject 1 each subcutaneously 4 times daily. ICD 10 Code: E10.9 Yes humaLOG KwikPen 100 unit/mL Insulin Pen Inject 1-6 Units subcutaneously 3 times daily (before meals). ICD 10 Code: E10.9 Yes LORazepam (Ativan) 0.5 mg Tablet Take 1 tablet by mouth every 6 hours as needed for Anxiety. May also take one by mouth every 6 hours as needed for nausea. Yes ascorbic acid, vitamin C, (VITAMIN C) 500 mg Tablet, Chewable Take 500 mg by mouth daily. Yes vit A/vit C/vit E/zinc/copper (ICAPS AREDS ORAL) Take 1 caplet by mouth daily. Yes estradioL (ESTRACE) 0.01 % (0.1 mg/gram) Cream three times a week. Yes nystatin (MYCOSTATIN) Cream Yes atorvastatin (LIPITOR) 40 mg Tablet Take 1 tablet by mouth daily. Patient taking differently: Take 40 mg by mouth daily. Yes ONE TOUCH DELICA 33 gauge Misc 1 each by [facility].(Non-Drug; Combo Route) route 6 times daily. Yes losartan (COZAAR) 50 mg Tablet Take 25 mg by mouth daily. Yes Chromium Picolinate 200 mcg Tablet Take 200 mcg by mouth daily. Yes multivitamin (THERAGRAN) Tablet Take 1 tablet by mouth daily. Yes Calcium Carbonate-Vitamin D3 600 mg(1,500mg) -400 unit Capsule Take by mouth daily. Yes atenolol (TENORMIN) 25 mg tablet Yes potassium chloride ER (K-Dur/Klor-Con) 20 mEq Tab Sust.Rel. Particle/Crystal Take 1 tablet by mouth daily. Take for 14 days. Patient not taking: Reported on 03/05/2022 CAPEcitabine (Xeloda) 500 mg tablet Take 1500 mg PO q am and 2000 mg q pm for 14 days.Then take 7 days off for a 21 day cycle. Take within 30 minutes after eating. Indications: metastatic breast carcinoma, ICD10 = C50.911 pyridoxine, Vitamin B6, (Vitamin B6) 50 mg Tablet Take 50 mg by mouth daily. loratadine (Claritin) 10 mg Tablet Take 10 mg by mouth daily. senna (Senokot) 8.6 mg Tablet Take by mouth daily. polyethylene glycol 3350 (MIRALAX ORAL) Take by mouth. prochlorperazine (Compazine) 10 mg Tablet Take 1 tablet by mouth every 6 hours as needed for Nausea. Patient not taking: Reported on 09/11/[address]? Carb counts Special Diet 3 meals/day * Breakfast: [place] x 2 with butter, eggs x 2, orange - 1/3 of fruit * Lunch toghurt with blueberries and nuts and cinnamon * Dinner: Fish sticks and spinach and a cookie * Drinks: Water and almond milk * snacks: Exercises: Walks a lot REVIEW OF SYSTEMS: Constitutional: No recent weight changes, no fevers, chills, fatigue, denies sleep disturbances Endocrine: No increased thirst or urination, heat/cold intolerance Eyes: No recent vision changes ENT: No dysphagia, dental issues - recent check up with no issues Cardiovascular: No chest pain, palpitations Respiratory: No wheezing , shortness of breath GI: No nausea, vomiting, diarrhea, constipation - bowel movements have been good, colonoscopy is scheduled : No frequent urinary tract infections, dysuria, hematuria Neurological: No weakness or numbness, dizziness Skin/Feet: No current diabetic foot ulcers/open area, no darkening of skin or skin changes Physical Exam: BP 133/70 (BP Location (NBP): Left arm, Patient Position: Sitting, BP Cuff Sizes: Adult (25-34 cm)) Pulse 77 Temp 36.8 ??C (98.3 ??F) (Temporal) Ht 170.2 cm (5' 7) Wt 65.2 kg (143 lb 12.8 oz) SpO2 94% BMI 22.52 kg/m?? Appearance: pleasant, NAD, AAOx3, speaking in clear sentences HEENT: PERRL Respiratory: breathing non-labored on RA Abd: Soft, non-distended, non-tender x4 quadrants Skin: abdomen injection sites: no bruising or evidence of scar tissue/lipohypertrophy Feet: shape is normal, skin is normal with no open areas or redness, nails are not mycotic, distal cap refill wnl pulses in feet : dorsalis pedis-yes posterior tibial-yes Lower extremities: No peripheral edema Neuro: appreciation of 10 g of pressure is present, gait is normal, moving all extremities. Grossly non-focal Labs: Update labs today Assessment: Patient is a 67 y.o. female with PMH significant for UC and??DM type 1 (DINESH)??and??hypothyroidism. ??Diabetes in the past??had??been complicated by frequent hypoglycemia. She is now using a Dexcom CGM.??Sought guidance from endocrinology team when she??started chemotherapy for breast cancer. She has stopped her chemo medication, reports she is doing well. Diabetes is currently well controlled, with estimated A1C of 7.4%. She is updating labs today. We reviewed Dexcom CGM, showing average blood sugar 172, time in target range 58%, high is 33% and very high is 7%. She is having some low blood sugars on days that she is more active, discussed strategy to reduce meal time insulin for any meals prior to anticipated exercise. We also discussed loosening of carb ratio with evening meal to prevent low blood sugars after dinner. Review of AHA/ACC/ADA and Endocrine Society clinical practice guidelines, recommend that a moderate intensity statin should be started at age 40 in those with diabetes regardless of ASCVD risk. Goal LDL should be < 70 in general and < 55 in those with established cardiovascular disease or multiple risk factors. LDL close to goal at last check. BP: at goal Plan: Update labs today --Medications: No changes to your insulin dosing Decrease meal time insulin by 20-50% for any meal prior to anticipated exercise following that meal. Trial a looser carb ratio for evening meal of 1:20 to see of this helps prevent low BGs after dinner Administer your meal time insulin 15-20 minutes before meals. --Monitoring: with CGM check BGs fasting in [...] as tolerated to keep weight down. --Prevention: discuss pneumonia series and Shingrex with PCP --F/U lab for: labs today --RTC: Next visit in 6 months. 40 minutes were spent reviewing the medical record and available tests, performing a physical exam, counseling the patient on medications, recommending changes to insulin dosing, reviewing management of hypoglycemia, and in prescription management, I have reviewed the plan outlined above with the patie nt and patient has verbalized understanding. documented in this encounter Plan of Treatment Upcoming Encounters Date Type Specialty Care Team Description 10/15/2022 Office Visit Hematology and Oncology Aldo Gaming MD [facility], [place] [address] (Wo rk) documented as of this encounter Goals Goal Patient Goal Associated Recent Patient-Stated? Author Type Problems Progress DH Home Medication Patient No Ken bialey, Compliance and Facing Kayla Lopez, Understanding Action Plan [facility] Note: Formatting of this note might be d ifferent from the original. Prevent / slow progression of disease as assessed by labs and scans in clinic every 3 months or more often when indicated documented as of this encounter Procedures Procedure Name Priority Date/Time Associated Comments Diagnosis HC CREATININE - NON Routine 03/05/2022 1:39 PM DINESH (latent Re sults for this BLOOD EDT autoimmune diabetes procedur e are in in adults), managed the resu lts as type 1 section. HC CREATININE Routine 03/05/2022 12:55 DINESH (latent Results fo r this PM EDT autoimmune diabetes procedur e are in in adults), managed the resu lts as type 1 section. HC THYROID Routine 03/05/2022 12:55 DINESH (latent Results for this STIMULATING HORMONE, PM EDT autoimmune diabetes procedure are in SERUM in adults), managed the resu lts as type 1 section. HEMOGLOBIN A1C Routine 03/05/2022 12:55 DINESH (latent Result s for this PM EDT autoimmune diabetes procedur e are in in adults), managed the resu lts as type 1 section. documented in this encounter Results U Albumin/Cre Ratio (03/05/2022 1:39 PM EDT) P athologist Signature Alb/Cr Ratio, 23 0 - 29 [facility] Random mcg/mg Cr [facility] Comment: Reference Ranges: <30 mcg/mg: Normal 30-300 mcg/mg: Moderately increased albu minuria.* >300 mcg/mg: Severely increased albuminu bran. * ACEI or ARB recommended if diabetic; s uggested if BP>130/80 without diabetes ACEI or ARB strongly recommended if di abetic; recommended if BP>130/80 without diabetes Two of three specimens collected within a 3 to 6 month period should be abnormal before considering a patient to have albuminuria. Transient causes: exercise, fever, infection, CHF, marked hyperglycemia or hypertension. Persistent albuminuria indicates CKD and is an independent risk factor for ASCVD. ADA Standards of Medical Care in Diabete s-2016; KDIGO: Kidney International Supplements (2012) 2, 357? 362 U Albumin Conc, Random 12.9 mg/L [facility] U Creatinine 55 mg/dL [facility] Specimen Anatomical Collection Method Collection Time Receive d Time (Source) Location / / Volume Laterality Urine 03/05/2022 1:39 PM 2 1:49 EDT PM EDT Resulting Agency Comment Spec In Lab Heather Conte APRN URINE ORDERABLES Performing Organization Address City/State/[place] [address] (ABNORMAL) Creatinine (03/05/2022 12:55 PM EDT) Analysis Performed At Patho logist Time Signature Creatinine 0.64 (L) 0.70 - [facility] 1.20 mg/dL [facility] Estimated GFR 93 >=60 [facility] mL/min/1.7 [facility] 3 ?? [facility] Comment: This patient? s estimated glomerular filtration rate (eGFR) is between 93 mL/min/1.73 m2 (patients with less muscl e mass) and 108 mL/min/1.73 m2 (patients with more muscle mass) as dete rmined by the CKD-EPI equation. Assessment of eGFR is not appropriate wh en creatinine concentrations are rapidly changing. For clinical decisions where creatinine clearance will affect therapy, a 24-hour urine creatinine yaneli breana may be advised. Assignment of CKD stage 1 - 5 for patien ts with an eGFR near the transition point between stages may be based on cli nical assessment of muscle mass and symptoms in addition to eGFR. Specimen Anatomical Collection Method Collection Time Receive d Time (Source) Location / / Volume Laterality Blood 03/05/2022 12:55 03/05/2022 1:09 PM EDT PM EDT Resulting Agency Comment Spec In Lab Heather Faiza CooleyClermontSuggsN CHEMISTRY ORDERABLES Performing Organization Address City/[facility]/ZIP [facility] [place] [address] (ABNORMAL) TSH (03/05/2022 12:55 PM EDT) P athologist Signature TSH 0.09 (L) 0.27 - 4.20 [facility] mcIU/mL [facility] Comment: Reference Interval (mcIU/mL): Females: ??First Trimester: 0.23-3.88 ??Second Trimester: 0.22-3.90 ??Third Trimester: 0.44-4.66 Specimen Anatomical Collection Method Collection Time Receive d Time (Source) Location / / Volume Laterality Blood 03/05/2022 12:55 03/05/2022 1:09 PM EDT PM EDT Resulting Agency Comment Spec In Lab Heather Faiza Co[place]uggsN CHEMISTRY ORDERABLES Performing Organization Address City/[facility] [place] [address] (ABNORMAL) Hemoglobin A1c (03/05/2022 12:55 PM EDT) Analysis Performed At Patho logist Time Signature Hemoglobin A1C 5.7 (H) 4.3 - 5.6 [facility] % [facility] Comment: Reference Range: 4.3 - 5.6% [...] 36: Suppl. 1, S67-74 Est Avg Gluc 118 mg/dL [facility] Comment: eAG equivalents for HbA1c percentages: HbA1c(%) ?eAG(mg/dL) 6.0 ?126 6.5 ?140 7.0 ?154 7.5 ?169 8.0 ?183 8.5 ?197 9.0 ?212 9.5 ?226 10.0 ? 240 Limitations: The eAG calculation has not been validated on women, individuals below 18 years old and above 70 years old, and individuals with hemoglobinopathies. Additional resources are available on [facility] ADA website. David FONTANEZ, Ethan J, Luis Felipe R, et al. ??Tr anslating the A1C assay into estimated average glucose values. ??Diabetes Care 2008:31(8):4203-8803. 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
--- OUTSIDE RECORDS SUMMARY | 2022-09-09 09:37 | XMS_ITS | Encounter Summary ---
:1955 Author Organization [facility] Address [address] [place] [address] Care Team Providers Name Role Phone None Primary Care Provider Unavailable Encounter Details Date Type Department Care Team Description 09/11/2021 Office Visit Hematology/Oncology Celestina Gaming MD [facility] DR HEMATOLOGY/[place] [address] Malignant neoplasm of at [facility] Karli Leavitt APRN [address] [place] [address] DR HEMATOLOGY ONCOLOGY [place], [place] [id number] upper-outer quadrant [address] [place] [address] Drive of right breast in [place], [place] female, [place] [id number] receptor negative [phone] Social History Tobacco Use Types Packs/Day Years [...] Sign Reading Time Taken Comments Blood Pressure 125/74 09/11/2021 10:49 AM EDT Pulse 71 09/11/2021 10:49 AM EDT Temperature 36.1 ??C (96.9 ??F) 09/11/2021 10:49 AM EDT Respiratory Rate 18 09/11/2021 10:49 AM EDT Oxygen Saturation 98% 09/11/2021 10:49 AM EDT Inhaled Oxygen Concentration - - Weight 61.9 kg (136 lb 6.4 oz) 09/11/2021 10:49 AM EDT Height 171 cm (5' 7.32) 09/11/2021 10:49 AM EDT Body Mass Index 21.16 09/11/2021 10:49 AM EDT documented in this encounter Progress Notes Aldo Gaming MD - 09/11/2021 11:00 AM EDT Subjective: Patient ID: Tatyana Skelton is a 66 y.o. female. HPI The patient is a 66-year-old female seen in the [facility]. 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 ER was negative, MA was negative, HER-2 was negative. MRI scan [...] 67% 01/19 Neoadjuvant Adriamycin and cyclophosphamide 01/16/2021 Complete 4 taxol 04/18 Bilateral mastectomies 06/18 2.5 cm residual tumor, triple negative, node negative Tumor board recommended postoperative adjuvant Xeloda Xeloda 1500 am, 2000 pm started 07/19 The patient returns to the [facility]. She completed neoadjuvant chemotherapy for her triple negative breast cancer and then underwent bilateral mastectomies. She still had substantial residual disease and has embarked on a course of adjuvant Xeloda. Her first cycle of 2 weeks on and 1 week off was at 1500 mg twice a day. We escalated to 1500 mg in the a.m. and 2000 mg in the p.m. with her second cycle. She completed her third cycle at the same dose because we were not sure if she was developing some early skin toxicity versus persistent neuropathy. She did pretty well with this most recent cycle. She is due to start her next cycle tomorrow. She has developed a little bit of skin dryness around her nails on her fingers. Did get some worsening tingling in her feet but no skin breakdown. Patient Active Problem List Diagnosis Code ??? UC (ulcerative colitis) K51.90 ??? HTN (hypertension) I10 ??? Hypothyroidism E03.9 ??? History of diverticulitis Z87.19 ??? Malignant neoplasm of upper-outer quadrant of right breast in female, estrogen receptor upcyxcrgW68.411, Z17.1 Type 1 diabetes diagnosed as an adult Current Outpatient Medications: ??? pyridoxine, Vitamin B6, (Vitamin B6) 50 mg Tablet, Take 50 mg by mouth daily., Disp: , Rfl: ??? levothyroxine (SYNTHROID) 175 mcg Tablet, Take 1 tablet by mouth daily., Disp: 90 tablet, Rfl: 3 ??? CAPEcitabine (Xeloda) 500 mg tablet, Take 4 tablets (2,000 mg) by mouth 2 times daily for 14 days. Then take 7 days off for a 21 day cycle. Take within 30 minutes after eating. Call clinic before/prior to starting medication/script. Indications: metastatic breast carcinoma, ICD10 = C50.911, Disp: 112 tablet, Rfl: 5 ??? Blood-Glucose Meter,Continuous Misc, by NOT APPLICABLE route., Disp: , Rfl: ??? Blood-Glucose Sensor Device, by NOT APPLICABLE route., Disp: , Rfl: ??? Lantus Solostar U-100 Insulin pen, Inject 18 Units subcutaneously every morning. (Patient takingdifferently: Inject 18 Units subcutaneously every morning. 18 units), Disp: 15 mL, Rfl: 3 ??? sulfaSALAzine (Azulfidine) 500 mg Tablet, Take 4 tablets by mouth 2 times daily., Disp: 720 tablet, Rfl: 3 ??? Dexcom G6 Transmitter Device, 1 each by Misc.(Non-Drug; Combo Route) route continuous. Change every 90 days., Disp: 1 Device, Rfl: 3 ??? BD Ultra-Fine Short Pen Needle 31 gauge x 5/16 Needle, Inject 1 each subcutaneously 4 times daily. ICD 10 Code: E10.9, Disp: 400 each, Rfl: 3 ??? OneTouch Verio test strips Strip, Check blood glucose up to 6 times daily as needed as backup for Dexcom, Disp: 100 each, Rfl: 3 ??? humaLOG KwikPen 100 unit/mL Insulin Pen, Inject 1-6 Units subcutaneously 3 times daily (before meals). ICD 10 Code: E10.9, Disp: 15 mL, Rfl: 3 ??? senna (Senokot) 8.6 mg Tablet, Take by mouth daily., Disp: , Rfl: ??? ascorbic acid, vitamin C, (VITAMIN C) 500 mg Tablet, Chewable, Take 500 mg by mouth daily., Disp: , Rfl: ??? vit A/vit C/vit E/zinc/copper (ICAPS AREDS ORAL), Take 1 caplet by mouth daily., Disp: , Rfl: ??? metFORMIN (Glucophage) 500 mg Tablet, Take 2 tablets by mouth 2 times daily (with meals). (Patient taking differently: Take by mouth 2 times daily (with meals). bid), Disp: 360 tablet, Rfl: 3 ??? estradioL (ESTRACE) 0.01 % (0.1 mg/gram) Cream, three times a week., Disp: , Rfl: ??? atorvastatin (LIPITOR) 40 [...] mg tablet, , Disp: , Rfl: ??? glucagon (Baqsimi) 3 mg/actuation [place], Non-Aerosol, 3 mg by Nasal route as needed (administer dose into one nostril, may repeat in 15 minutes if no response while awaiting Emergency assistance). (Patient not taking: Reported on 08/21/2021), Disp: 2 each, Rfl: 1 ??? loratadine (Claritin) 10 mg Tablet, Take 10 mg by mouth daily., Disp: , Rfl: ??? polyethylene glycol 3350 (MIRALAX ORAL), Take by mouth., Disp: , Rfl: ??? LORazepam (Ativan) 0.5 mg Tablet, Take 1 tablet by mouth every 6 hours as needed for Anxiety. May also take one by mouth every 6 hours as needed for nausea. (Patient not taking: Reported on 07/03/2021), Disp: 30 tablet, Rfl: 0 ??? prochlorperazine (Compazine) 10 mg Tablet, Take 1 tablet by mouth every 6 hours as needed for Nausea. (Patient not taking: Reported on 09/11/2021), Disp: 30 tablet, Rfl: 1 ??? nystatin (MYCOSTATIN) Cream, , Disp: , Rfl: ??? multivitamin (THERAGRAN) Tablet, Take 1 tablet by mouth daily., Disp: , Rfl: Allergies [...] other systems reviewed and are negative. BP 125/74 (Patient Position: Sitting) Pulse 71 Temp 36.1 ??C (96.9 ??F) (Temporal) Resp 18 Ht 171 cm (5' 7.32) Wt 61.9 kg (136 lb 6.4 oz) SpO2 98% BMI 21.16 kg/m?? Sclera white Mucous membranes moist Normal respiratory effort Heart regular rate Extremities no edema Skin no rash, early dry skin and cracks around the fingertips Neuro nonfocal White count 4.4, ANC 3.0, hemoglobin 11.0, platelets 139 Creatinine 0.8, alk phos 85 Assessment and Plan: 66-year-old female who has a right-sided breast cancer. She had a 2.5 cm triple negative breast cancer and opted for neoadjuvant chemotherapy. She completed 4 cycles of dose dense Adriamycin and cyclophosphamide and then 4 more doses of Taxol. She underwent bilateral mastectomies and unfortunately hadreally minimal impact on her disease burden. She has embarked on a course of adjuvant Xeloda. Overall tolerating it reasonably well at a dose of 1500 mg in the a.m. and 2000 mg in the p.m. for 14 days with 7 days off. She does have some signs of early skin toxicity but it is quite tolerable. I am going to keep her atthis dose and try to complete 8 cycles. She is going to start her next cycle tomorrow. If that goes well she will not need to check in with us in 3 weeks we will plan to see her back in 6 weeks. We will repeat labs at that point. If she has more problems she will let us know and I have asked her to keep an eye on the skin changes around her fingertips. documented in this encounter Miscellaneous Notes Addendum Note - Aldo Gaming MD - 09/11/2021 11:00 AM EDT Addended by: ALDO GAMING on: 09/11/2021 03:35 PM Modules accepted: Orders documented in this encounter Plan of Treatment Upcoming Encounters Date Type Specialty Care Team Description 10/15/2022 Office Visit Hematology and Oncology Aldo Gaming MD [facility] [place] [place] [address] (Wo rk) documented as of this encounter Goals Goal Patient Goal Associated Recent Patient-Stated? Author Type Problems Progress DH Home Medication Patient No Ken bailey, Compliance and Facing Kayla Lopez, Understanding Action Plan [facility] Note: Formatting of this note might be d ifferent from the original. Prevent / slow progression of disease as assessed by labs and scans in clinic every 3 months or more often when indicated documented as of this encounter Visit Diagnoses Diagnosis Malignant neoplasm of upper-outer quadra nt of right breast in female, estrogen receptor negative documented in this encounter Care Teams Private Security Guard Relationship Specialty Start Date End Date None PCP - General 06/11/21 04/02/22 None documented as of this encounter
--- OUTSIDE RECORDS SUMMARY | 2022-09-09 09:37 | XMS_ITS | Encounter Summary ---
:1955 Author Organization [facility] [place] [address] Care Team Providers Name Role Phone None Primary Care Provider Unavailable Encounter Details Date Type Department Care Team Description 02/13/2022 Telephone Endocrinology at [facility] Rick Cherry [facility] [place] [address] Social History Tobacco Use Types Packs/Day [...] Visit Hematology and Oncology Aldo Gaming MD [facility] HEMATOLOGY/ONCOL [facility] DEPT. [place], [place] [address] (Wo rk) documented as of this encounter Goals Goal Patient Goal Associated Recent Patient-Stated? Author Type Problems Progress Home Medication Patient No Ken bailey, Compliance and Facing Kayla Lopez, Understanding Action Plan [facility] Note: Formatting of this note might be d ifferent from the original. Prevent / slow progression of disease as assessed by labs and scans in clinic every 3 months or more often when indicated documented as of this encounter Visit Diagnoses Not on filedocumented in this encounter Care Teams Salesperson Neckties Relationship Specialty Start Date End Date None PCP - General 06/11/21 04/02/22 None documented as of this encounter
--- OUTSIDE RECORDS SUMMARY | 2022-09-09 09:37 | XMS_ITS | Encounter Summary ---
:1955 Author Organization [facility] [place] [address] Care Team Providers Name Role Phone None Primary Care Provider Unavailable Encounter Details Date Type Department Care Team Description 10/20/2021 Office Visit Hematology/Oncology Karli Leavitt Ma lignant neoplasm of at [facility] A, MERCHANDISING REPRESENTATIVE upper-outer quadrant [address] of right breast in [place], [place] HEMATOLOGY ONCO LOGY female, estrogen [phone] [place], [place] receptor negative [phone] (Wo rk) Social History Tobacco Use Types [...] Sign Reading Time Taken Comments Blood Pressure 119/74 10/20/2021 10:25 AM EST Pulse 79 10/20/2021 10:25 AM EST Temperature 36.6 ??C (97.9 ??F) 10/20/2021 10:25 AM EST Respiratory Rate 20 10/20/2021 10:25 AM EST Oxygen Saturation 97% 10/20/2021 10:25 AM EST Inhaled Oxygen Concentration - - Weight 62.2 kg (137 lb 3.2 oz) 10/20/2021 10:25 AM EST Height 171 cm (5' 7.32) 10/20/2021 10:25 AM EST Body Mass Index 21.28 10/20/2021 10:25 AM EST documented in this encounter Progress Notes Karli Leavitt, MERCHANDISING REPRESENTATIVE - 10/20/2021 10:30 AM EST Subjective: Patient ID: Tatyana [...] Biopsies negative. ?? CT scan 07/25/13 ( [facility] [place] [facility]) : Thickening of [...] is a 65-year-old female seen in the [facility]. ?? 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 ER was negative, FL was negative, HER-2 was negative. MRI scan [...] neoadjuvant Adriamycin and cyclophosphamide 01/16/2021 INTERVAL HPI 10/20/21 Tatyana Skelton is a 66 yo female diagnosed 11/17 with microinvasive lobular carcinoma of the right breast; ER/FL negative; HER-2 jacob negative.(See history as summarized above.) Tatyana returns to the [facility] oncology clinic in [facility] today for evaluation following C5. She has remained on a Capecitabine dose of 1500mg am and 2000mg pm. Tatyana is doing well today. Her energy is good, she has been hiking frequently as she often does. Shedoes get fatigued on this regimen. She was having foot pain 2 cycles ago on the bottoms of her feet. She says they completely peeled after that, and have been a bit better since with regard to pain.. She does have a purplish callous on the bottom of each great toe and the great toes have had minor peeling. She has not had increasing foot pain , and thinks the pain is likely related to the Capecitabine. Her feet feel pretty good today, with tenderness which she says is tolerable. Tatyana does have tender fingertips. She also gets intermittent pain in her ankles and calves, no swelling. She has has some clavicle area pain. She says this could be related to working out recently with 3 pound hand weights. Tatyana has a good appetite and her bowels are working well. She has noticed some vaginal itching and pain that seems to go away during her week off. She has also noticed some lower back pains that she first noticed after C4. No difficulty voiding. She has not had any fever or illness. No shortness of breath or cough. She would like to continue at the same Capecitabine dose. Allergies Allergen Reactions ??? Contrast [Iodine And [...] mcg Tablet ??? glucagon (Baqsimi) 3 mg/actuation [place], Non-Aerosol ??? Blood-Glucose Meter,Continuous Misc ??? Blood-Glucose Sensor Device ??? Lantus Solostar U-100 Insulin pen ??? sulfaSALAzine (Azulfidine) 500 mg Tablet ??? Adteractive G6 Transmitter Device ??? BD Ultra-Fine Short [...] Review of Systems Constitutional: Positive for fatigue. HENT: Negative for mouth sores and rhinorrhea. Eyes: Negative for visual disturbance. Respiratory: Negative for cough and shortness of breath. Cardiovascular: Negative for chest pain and palpitations. Gastrointestinal: Positive for diarrhea. Negative for constipation, nausea and vomiting. A few mild episodes not requiring treatment Endocrine: Increased variations in blood sugar Genitourinary: Negative. Musculoskeletal: Positive for arthralgias and back pain. Ankle pain Skin: Great toes minor peeling Neurological: Negative. Hematological: Negative. Psychiatric/Behavioral: Negative. Objective: Physical Exam Vitals reviewed. Constitutional: Comments: Pleasant, well-nourished, well-appearing female in NAD [...] No edema. Left lower leg: No edema. Skin: General: Skin is warm and dry. Comments: Well healing incisions at bilateral mastectomy sites. Neurological: Mental Status: She is oriented to person, place, and time. Coordination: Coordination normal. Psychiatric: Mood and Affect: Mood normal. Thought Content: Thought content normal. BP 119/74 (Patient Position: Sitting) Pulse 79 Temp 36.6 ??C (97.9 ??F) (Temporal) Resp 20 Ht 171 cm (5' 7.32) Wt 62.2 kg (137 lb 3.2 oz) SpO2 97% BMI 21.28 kg/m?? LABS 10/20/21 WBC 4.35;ANC 2.56; H/H 11.1/32.4; PLT 141; BUN 12; CREAT 0.7; LFTs normal; BILI 0.5.K+ 3.4 Assessment and Plan: Assessment: Tatyana Skelton is a 66 yo female diagnosed 11/17 with microinvasive lobular carcinoma of the right breast; ER/FL negative; HER-2 jacob negative.(See history as summarized above.) Tatyana returns to the [facility] oncology clinic in [facility] today for evaluation following C5. She has remained on a Capecitabine dose of 1500mg am and 2000mg pm. CBC and CMP were reviewed with Tatyana today and meet treatment parameters. C6 is due to start in a few days. Likely Capecitabine -induced skin toxicity in feet vs neuropathy. Plan: Continue C6 Capecitabine at same dose of C4,5 and reassess in 3 weeks. Discussed with Tatyana that if toxicity symptoms worsen, stop the drug and call clinic. Continue good oral hydration and exercise as tolerated. Continue communication with endocrine team for optimal blood sugar control. RTC 3 weeks for evaluation of various GR1 symptoms. documented in this encounter Plan of Treatment Upcoming Encounters Date Type Specialty Care Team Description 10/15/2022 Office Visit Hematology and Oncology Aldo Gaming MD [facility] [place] [address] (Wo rk) documented as of this encounter [...] negative documented in this encounter Care Teams Quality Eng Relationship Specialty Start Date End Date None PCP - General 06/11/21 04/02/22 None documented as of this encounter
--- OUTSIDE RECORDS SUMMARY | 2022-09-09 09:37 | XMS_ITS | Encounter Summary ---
:1955 Author Organization [place] [address] Care Team Providers Name Role Phone None Primary Care Provider Unavailable Encounter Details Date Type Department Care Team Description 12/04/2021 Office Visit Hematology/Oncology Celestina Gaming MD [facility] DR HEMATOLOGY/[place] [address] Malignant neoplasm of upper-outer quadra nt of right breast in female, estrogen receptor negative; at [facility] Karli Leavitt APRN [address] [place] [address] [place] [address] [place] [phone] Social History Tobacco Use Types Packs/Day [...] Sign Reading Time Taken Comments Blood Pressure 142/87 12/04/2021 8:09 AM EST Pulse 84 12/04/2021 8:09 AM EST Temperature 36.4 ??C (97.5 ??F) 12/04/2021 8:09 AM EST Respiratory Rate 20 12/04/2021 8:09 AM EST Oxygen Saturation 98% 12/04/2021 8:09 AM EST Inhaled Oxygen Concentration - - Weight 64.4 kg (142 lb) 12/04/2021 8:09 AM EST Height 171 cm (5' 7.32) 12/04/2021 8:09 AM EST Body Mass Index 22.03 12/04/2021 8:09 AM EST documented in this encounter Progress Notes Karli Leavitt APRN - 12/04/2021 8:00 AM EST Subjective: Patient ID: Tatyana Skelton [...] Biopsies negative. ?? CT scan 07/25/13 ( [facility]) : Thickening of the wall [...] is a 65-year-old female seen in the [facility]. ?? 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 ER was negative, IN was negative, HER-2 was negative. MRI scan [...] neoadjuvant Adriamycin and cyclophosphamide 01/16/2021 INTERVAL HPI 12/04/21 Tatyana Skelton is a 66 yo female diagnosed 11/17 with microinvasive lobular carcinoma of the right breast; ER/IN negative; HER-2 jacob negative.(See history as summarized above.) Tatyana returns to the [facility] onc[facility] clinic in [facility] today for evaluation following C7. She has remained on a Capecitabine dose of 1500mg am and 2000mg pm. She is scheduled to begin Cycle 8 (final cycle) Capecitabine on 12/05/21. Tatyana continues to find she is more fatigued on her Capecitabine off week. Nonetheless she is activeevery day hiking, snowshoeing, or lately, doing trail work. She is eating well. She has not had nausea or bowel issues. She may have a few episodes of diarrhea,but nothing that lasts. She again is reporting vaginal itching and irritation on her off week that also occurred 2 cycles ago. She says one dose of oral Fluconazole helped. I will send a prescription for another dose. Tatyana has no new issues with her hands or feet with regard to peeling or pain. Purplish lesions on the underside of each great toe are now resolved. The toes are slightly tender. Her hands have almost no peeling but she does have a few fissure-like cuts on her fingertips. Her feet are not numb or tingling. She is happy with the current Capecitabine dose. The previous blister-like lesion on the back of her left shoulder has healed. She denies difficulty breathing, fevers, chills or shortness of breath. Her chest wall muscles feel a little tight, she thinks it has to do with sawing. Tatyana has no signs of lymphedema in either arm. Her blood sugars have better this cycle according to Tatyana. She is hoping to visit family in [place] this summer. Allergies Allergen Reactions ??? Contrast [Iodine And Iodide Containing Products] Nausea And Vomiting and Other (See Comments) Neck swelling ??? Lisinopril Other (See Comments) Caused a dry cough ??? Lactose Diarrhea Current Medications ??? CAPEcitabine (Xeloda) 500 mg tablet ??? OneTouch Verio test strips Strip ??? pyridoxine, Vitamin B6, (Vitamin B6) 50 mg Tablet ??? Urine Glucose-Ketones Test Strip ??? levothyroxine (SYNTHROID) 175 mcg Tablet ??? glucagon (Baqsimi) 3 mg/actuation [place], Non-Aerosol ??? Blood-Glucose Meter,Continuous Misc ??? Blood-Glucose Sensor Device ??? Lantus Solostar U-100 Insulin pen ??? sulfaSALAzine (Azulfidine) 500 mg Tablet ??? [employer] G6 Transmitter Device ??? BD Ultra-Fine Short [...] fatigue. Mostly in the off week. HENT: Negative for rhinorrhea. Eyes: Negative for visual disturbance. Respiratory: Negative for cough and shortness of breath. Cardiovascular: Negative for chest pain and palpitations. Gastrointestinal: Positive for diarrhea. Negative for constipation, nausea and vomiting. A few mild episodes not requiring treatment Endocrine: Increased variations in blood sugar Genitourinary: Negative. Musculoskeletal: Positive for arthralgias and back pain. Chest wall tightness Skin: Positive for wound. Cuts on fingertips [...] mastectomy sites. Neurological: Mental Status: She is alert and oriented to person, place, and time. Coordination: Coordination normal. Psychiatric: Mood and Affect: Mood normal. Thought Content: Thought content normal. BP 142/87 (Patient Position: Sitting) Pulse 84 Temp 36.4 ??C (97.5 ??F) (Temporal) Resp 20 Ht 171 cm (5' 7.32) Wt 64.4 kg (142 lb) SpO2 98% BMI 22.03 kg/m?? LABS 12/03/21 WBC 3.63; ANC 2.33; H/H 10.6/32.1; PLT 122; BUN 9; CREAT 0.7; K+3.2; LFTs normal. Assessment and Plan: Assessment: Tatyana Skelton is a 66 yo female diagnosed 11/17 with microinvasive lobular carcinoma of the right breast; ER/IN negative; HER-2 jacob negative.(See history as summarized above.) Tatyana returns to the [facility] oncology clinic in [facility] today for evaluation following C7. She has remained on a Capecitabine dose of 1500mg am and 2000mg pm. CBC and CMP were reviewed with Tatyana today and meet treatment parameters. K+ 3.2 . C8 is due to start tomorrow. Tatyana is tolerating current dose of Capecitabine with minimal toxicity. Plan: Continue C7 Capecitabine at same dose of 2000/1500mg daily 14/21 days and return in 3 weeks. Discussed with Tatyana that if Capecitabine toxicity symptoms increase, stop the drug and call clinic. Hypokalemia - will send prescription for 20 meq KCL po Qd [id number]. Sent prescription for one oral fluconazole. Continue good oral hydration and exercise as tolerated. RTC 3 weeks for evaluation. documented in this encounter Plan of Treatment Upcoming Encounters Date Type Specialty Care Team Description 10/15/2022 Office Visit Hematology and Oncology Aldo Gaming MD [facility] [place] [address] (Wo rk) documented as of this encounter Goals Goal Patient Goal Associated Recent Patient-Stated? Author Type Problems Progress DH Home Medication Patient No Ken bailey, Compliance and Facing Kayla Lopez, Understanding Action Plan [facility] Note: Formatting of this note might be d ifferent from the original. Prevent / slow progression of disease as assessed by labs and scans in clinic every 3 months or more often when indicated documented as of this encounter Visit Diagnoses Diagnosis Malignant neoplasm of upper-outer quadra nt of right breast in female, estrogen receptor negative Hypokalemia Hypopotassemia documented in this encounter Care Teams Crusher Relationship Specialty Start Date End Date None PCP - General 06/11/21 04/02/22 None documented as of this encounter
--- OUTSIDE RECORDS SUMMARY | 2022-09-09 09:37 | XMS_ITS | Encounter Summary ---
:1955 Author Organization [facility] [place] [address] Care Team Providers Name Role Phone Mely Solano MD Primary Care Provider Reason for Visit Reason Onset Date Comments Medication Refill 09/29/2021 Encounter Details Date Type Department Care Team Description 09/29/2021 Refill Endocrinology at [facility] Tatyana Lea MD [facility] [place] [address] ENDOCRINOLOGY DEPT [phone] [place], [place] [address] (Wo rk) Social History Tobacco [...] [facility] DEPT. [place], [place] [address] (Wo rk) documented as of [...] on filedocumented in this encounter Care Teams Embossing Press Operator Apprentice Relationship Specialty Start Date End Date Mely Solano MD PCP - General Family Medicine 04/03/[address] [place] [id number] documented as of this encounter
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
--- OUTSIDE RECORDS SUMMARY | 2022-09-09 09:38 | XMS_ITS | Encounter Summary ---
:1955 Author Organization [facility] [place] [address] Care Team Providers Name Role Phone None Primary Care Provider Unavailable Reason for Visit Reason Comments Medication Refill Encounter Details Date Type Department Care Team Description 08/13/2021 Specialty Pharmacy Pharmacy at [facility], [place] [address] Social History Tobacco Use Types Packs/Day Years [...] of this encounter Progress Notes [facility] - 08/13/2021 11:18 AM EDT Clinical Management Plan: Refill Specialty Pharmacy Consultation; [facility] Comprehensive Medication Management (CMM) Tatyana Lucero Costa [...] Lactose Diarrhea Medication Reconciliation Discrepancies (compared to [facility] med list) No Specialty Pharmacy Refill Questionnaire Refill Questionnaire 08/13/2021 What is the name of the specialty medication you are refilling? Capecitabine Are you taking any new medications? No Any new medical condition? No Any new allergies? No Any new side effects that are bothersome? Yes Please explain feet are sore What date will you need this fill by? 08/21/2021 Adherence: Any missed doses? No Patient understands no changes to current drug regimen were made. [facility] RPH 08/13/21 11:20 AM documented in this encounter Plan of Treatment Upcoming Encounters Date Type Specialty Care Team Description 10/15/2022 Office Visit Hematology and Oncology Aldo Gaming MD [facility] HEMATOLOGY/[facility] DEPT. [place], [place] [address] (Wo rk) documented as of this encounter Goals Goal Patient Goal Associated Recent Patient-Stated? Author Type Problems Progress DH Home Medication Patient No Ken bailey, Compliance and Facing Kayla Lopez, Understanding Action Plan [facility] Note: Formatting of this note might be d ifferent from the original. Prevent / slow progression of disease as assessed by labs and scans in clinic every 3 months or more often when indicated documented as of this encounter Visit Diagnoses Not on filedocumented in this encounter Care Teams International Trade Compliance Manager Relationship Specialty Start Date End Date None PCP - General 06/11/21 04/02/22 None documented as of this encounter
--- OUTSIDE RECORDS SUMMARY | 2022-09-09 09:38 | XMS_ITS | Encounter Summary ---
:1955 Author Organization [facility] [place] [address] Care Team Providers Name Role Phone Bang Heath MD Primary Care Provider Encounter Details Date Type Department Care Team Description 05/30/2021 Clinical Support General Surgery at [facility] Change or removal of [facility] [place] [address] Social History Tobacco Use Types Packs/Day [...] documented as of this encounter Progress Notes Lillian Kay RN - 05/30/2021 1:30 PM EDT Date: 05/30/2021 Time: 2:10 PM Case Date: 05/23/2021 ?? Surgeon: Surgeon(s) and Role: Demetra Fernandez MD - Primary ?? Preoperative diagnosis: BREAST CANCER - right ?? Postoperative diagnosis: BREAST CANCER ?? Procedure(s) (LRB): MASTECTOMY, SIMPLE, COMPLETE-JORDYN (WRVU 15.85) (Bilateral) BIOPSY OR EXCISION OF LYMPH NODE(S), OPEN, DEEP AXILLARY NODE(S) (WRVU 6.43) (Right) INTRAOPERATIVE ID (MAPPING) SENTINEL LYMPH NODE,INCLUDES INJECTION (WRVU 2.5) (Right) MODIFIER SENTINEL NODE EXCISION (Right) REMOVAL OF TUNNELED CENTRAL VENOUS ACCESS DEVICE, WITH PORT OR PUMP (WRVU 3.35) (Left) ? Anesthesia: General ?? Estimated Blood Loss: 130 mL Amount of Time Drain was in: 7 days Drainage volume in past 24 hours: 18cc Drain location: LEFT lateral chest Documentation of drain removal: The patient is identified as Tatyana Barker Costa. Tatyana exposed the drain site and was comfortably positioned on exam table. I explained as I proceeded what I was doing. The suction on the collection bulb was released and the suture cut thus removing the suture from the skin. Tatyana was instructed to take a deep breath;at which time the drain was easily removed intact. Bacitracin ointment on dry sterile gauze was placed at the drain site and secured with tape. Tatyana tolerated the procedure with well. Patient Education: Tatyana Skelton was instructed to keep the drain site covered with bacitracin and gauze while it continues to drain (usually 24-48 hours). The dressing should be changed when wet. I reviewed with Tatyana the following information which the received in a written form. All questions were answered and concerns addressed. 1. You will need to cover your drain site while it is draining. This usually lasts 24-48 hours. Yourdressing needs to be changed when it becomes wet. A small amount of drainage is normal. Apply a small amount of Bacitracin ointment to the gauze and secure with tape over your drain site. 2. You may develop a seroma (a collection of fluid) at or around the drain site. A seroma may be firm or soft and can vary in shapes and size. This is not a medical emergency, but it is something to call the General Surgery nurses to discuss further instructions. The nurse's phone number is [phone]. 3. Call the General Surgery nurses or the General Surgery Doctor outside installation machinist if you develop any of the following: A. Fever greater than 100.5 or chills. B. Continual drainage from your drain site. C. Redness / swelling of your drain site or surgical incision. Should you develop redness can the area with a permanent marker so you can tell if it is worsening. D. Pain that is not controlled with Tylenol (acetaminophen), Advil (ibuprofen) or prescription painmedication. documented in this encounter Plan of Treatment Upcoming Encounters Date Type Specialty Care Team Description 10/15/2022 Office Visit Hematology and Oncology Aldo Gaming MD [facility] DR [facility] [place] [phone] ( rk) documented as of this encounter Visit Diagnoses Diagnosis Change or removal of drains Other specified aftercare following surg richie documented in this encounter Care Teams Recovery Advocate Relationship Specialty Start Date End Date Bang Heath MD PCP - General General Internal Medicine 01/18/[address] [place] [address] documented as of this encounter
--- OUTSIDE RECORDS SUMMARY | 2022-09-09 09:38 | XMS_ITS | Encounter Summary ---
:1955 Author Organization [facility] [place] [address] Care Team Providers Name Role Phone Bang Heath MD Primary Care Provider Reason for Visit Reason Comments Establish Care Consultation (Routine) - Closed Specialty Diagnoses / Procedures Referred By Contact Refer red To Contact Breast Clinic / Breast Diagnoses Malignant neoplasm of upper-outer quadrant of right breast in female, estrogen receptor negative Karli Leavitt Kari , [place] BROCK Elliott MD [address] [place] [address] ORTIZ, [place] GENERAL SURGERY [address] [place] [address] Fax: Referral ID Status Reason Start Date Expiration Date Visits V isits Requested Authorized [id number] Closed Consult, 04/11/2021 04/11/2022 1 1 Test & Treat Encounter Details Date Type Department Care Team Description 04/30/2021 Office Visit Hematology and Demetra Fernandez Malignant neoplasm of Oncology at [facility] MD [facility] quadrant [facility] of right breast in Drive DR bass, estrogen [place], [place] GENERAL SURGERY receptor positive [id number] [place] [address] [phone] Social History Tobacco Use Types Packs/Day Years [...] Sign Reading Time Taken Comments Blood Pressure 136/76 04/30/2021 10:59 AM EDT Pulse 76 04/30/2021 10:59 AM EDT Temperature 36.3 ??C (97.3 ??F) 04/30/2021 10:59 AM EDT Respiratory Rate 18 04/30/2021 10:59 AM EDT Oxygen Saturation - - Inhaled Oxygen Concentration - - Weight 64.2 kg (141 lb 8.6 oz) 04/30/2021 10:59 AM EDT Height 171 cm (5' 7.32) 04/30/2021 10:59 AM EDT Body Mass Index 21.96 04/30/2021 10:59 AM EDT documented in this encounter Progress Notes Demetra Fernandez MD - 04/30/2021 10:45 AM EDT Subjective: Patient ID: Tatyana Skelton is a 66 y.o. female. SARAH Rutherford is seen today in surgical consultation at the request of Dr. Gaming. She presents with her to discuss surgery for a triple negative right breast cancer following chemotherapy (completed last week). Sangeeta presented for screening mammogram in October,. Left breast was normal but in the right breast there was a questionable asymmetry at 10:00. Call back views confirmed a solid mass measuring 19mm at largest diameter. Biopsy revealed triple negative microinvasive ILC. MRI was then obtained which revealed: Approximately 3.2 x 1.4 x 3.2 cm [...] or skin abnormality visualized. ?? IMPRESSION 1. Multifocal multicentric biopsy-proven right breast malignancy. 2. No left breast malignancy within the limitations of technique as detailed Above. Sangeeta has been treated with neoadjuvant ddAC-T which she completed last week. She has tolerated therapy well. She is not aware of a breast mass. She denies adenopathy. She has some fatigue but is otherwise well. N She denies fevers, chills, sob, abdominal pains, lymphedema, breast masses, nipple discharge, skin changes, bone pains. She has mild lower back pain from gardening yesterday. Past Medical History: Diagnosis Date ??? History of diverticulitis 09/17/2014 ??? HTN (hypertension) ??? Hypothyroidism ??? Malignant neoplasm of upper-outer quadrant of right breast in female, estrogen receptor negative01/03/2021 ??? UC (ulcerative colitis) 09/11/2013 FH Great great grandmother with breast cancer. Negative for genetic mutation SH: with 3 children. Grandchildren in [place]. 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 Has not had general anesthesia in the past Objective: Physical Exam Well appearing and in nad. There is no cervical, supraclavicular or axillary adenopathy. No masses or skin changes on the left. In the upper, outer right breast there is asymmetry at site of known malignancy. No abdominal or vertebral tenderness. Imaging as in hpi. I have personally reviewed mri Assessment and Plan: Sangeeta is a 66 yo female with triple negative right breast cancer. She has completed NAC and is doing quite well. I recommend surgical therapy 3-4 weeks after completion of therapy. Sangeeta has read extensively and considered her options. We discussed possible BCT in which case I recommend a follow up MRI to assess residual disease in context of likely multifocal disease. Sangeeta is aware radiation will be recommended following partial mastectomy. We then reviewed mastectomy (and Sangeeta asked about CPM). Sangeeta is aware that survival is equivalent with all options. We also discussed the possible role of PMRT if there is rukhsana disease (or treatment effect in the nodes). Sangeeta also expressed a concern that her risk ofcontralateral disease is quite high- we reviewed the data and the relatively low rate of contralateral breast cancer occurrence. Again, Sangeeta is aware that bilateral mastectomy will not improve survival. After discussion, Sangeeta is inclined toward b/l mastectomy for peace of mind, fabulous and flat symmetry and to avoid future mammograms. Plan sentinel node on the right. Risks discussed and consent obtained. She is not at all interested in reconstruction. documented in this encounter Plan of Treatment Upcoming Encounters Date Type Specialty Care Team Description 10/15/2022 Office Visit Hematology and Oncology Aldo Gaming MD [facility] [place] [place] [address] (Wo rk) Scheduled Referrals Name Type Priority Associated Diagnoses Order S chedule Referral to Breast Outpatient Referral Routine Malignant neopl asm Ordered: Oncology of upper-outer 04/11/2021 quadrant of right breast in female, estrogen receptor negative documented as of this encounter Visit Diagnoses Diagnosis Malignant neoplasm of upper-outer quadra nt of right breast in female, estrogen receptor positive documented in this encounter Care Teams Voice Instructor Relationship Specialty Start Date End Date Bang Heath MD PCP - General General Internal Medicine 01/18/19 1 [address] [facility] [address] [address] documented as of this encounter
--- OUTSIDE RECORDS SUMMARY | 2022-09-09 09:38 | XMS_ITS | Encounter Summary ---
:1955 Author Organization [facility] [place] [address] Care Team Providers Name Role Phone Bang Heath MD Primary Care Provider Encounter Details Date Type Department Care Team Description 05/14/2021 Telephone Endocrinology at [facility] C [address] [facility] [place] [address] [place] [address] Social History Tobacco Use Types Packs/Day Years [...] this encounter Miscellaneous Notes Telephone Encounter - Bel Gonzalez RD - 05/14/2021 1:59 PM EDT Calling long re: dexcom. No answer. LMTCB. Will reply to [facility] message. Bel Gonzalez RD documented in this encounter Plan of Treatment Upcoming Encounters Date Type Specialty Care Team Description 10/15/2022 Office Visit Hematology and Oncology Aldo Gaming MD [facility] HEMATOLOGY/ONCOL [facility] DE[facility]. [place], [place] [address] (Wo rk) documented as of this encounter Visit Diagnoses Not on filedocumented in this encounter Care Teams Projection Technician Relationship Specialty Start Date End Date Bang Heath MD PCP - General General Internal Medicine 01/18/[address] [place] [address] documented as of this encounter
--- OUTSIDE RECORDS SUMMARY | 2022-09-09 09:38 | XMS_ITS | Encounter Summary ---
:1955 Author Organization [facility] [place] [place] [address] Care Team Providers Name Role Phone Bang Heath MD Primary Care Provider Reason for Visit Reason Onset Date Comments Other 05/29/2021 [facility] resources Encounter Details Date Type Department Care Team Description 05/29/2021 Telephone Hematology/Oncology at Ricarda Pierce, Ot her ([facility] resources) [address] OFFICE OF CARE [place], [place] MANAGEMENT [address] Social History Tobacco Use Types Packs/Day [...] this encounter Miscellaneous Notes Telephone Encounter - Ricarda Pierce [facility] - 05/29/2021 10:14 AM EDT Message received to call pt. DUSTY pt and she was inquiring about the status of her application to the [facility] for financial assistance with some pharmacy costs. Janina Batres MSW was going to complete theapplication for pt and TOBACCO DRUMMER did forward the receipts to [employer]. Messaged the [facility] [place] and they received pt's application, approved it and sent out a check on 05-23-21. TC pt back with this information and she will look for the check in the mal. She is appreciative of this assistance. documented in this encounter Plan of Treatment Upcoming Encounters Date Type Specialty Care Team Description 10/15/2022 Office Visit Hematology and Oncology Aldo Gaming MD [facility] HEMATOLOGY/ONCOL [facility] DE[facility]. [place], [place] [address] (Wo rk) documented as of this encounter Visit Diagnoses Not on filedocumented in this encounter Care Teams Camp Guard Relationship Specialty Start Date End Date Bang Heath MD PCP - General General Internal Medicine 01/18/[address] [place] [address] documented as of this encounter
--- OUTSIDE RECORDS SUMMARY | 2022-09-09 09:38 | XMS_ITS | Encounter Summary ---
:1955 Author Organization [facility] Address [address] [place] [address] Care Team Providers Name Role Phone Bang Heath MD Primary Care Provider Encounter Details Date Type Department Care Team Description 04/24/2021 Office Visit Hematology/Oncology Celestina Gaming MD [facility] HEMATOLOGY/[place] [address] Malignant neoplasm of at [facility] Karli Leavitt APRN [address] [place] [address] DR HEMATOLOGY ONCOLOGY [place], [place] [id number] upper-outer quadrant [address] [place] [address] Drive of right breast in [place], [place] female, [place] [id number] receptor negative [phone] Social History Tobacco Use Types Packs/Day Years [...] Sign Reading Time Taken Comments Blood Pressure 130/75 04/24/2021 10:54 AM EDT Pulse 79 04/24/2021 10:54 AM EDT Temperature 36.4 ??C (97.5 ??F) 04/24/2021 10:54 AM EDT Respiratory Rate 20 04/24/2021 10:54 AM EDT Oxygen Saturation 98% 04/24/2021 10:54 AM EDT Inhaled Oxygen Concentration - - Weight 64.7 kg (142 lb 10.2 oz) 04/24/2021 10:56 AM EDT Height 171 cm (5' 7.32) 04/24/2021 10:54 AM EDT Body Mass Index 22.13 04/24/2021 10:54 AM EDT documented in this encounter Progress Notes Aldo Gaming MD - 04/24/2021 11:00 AM EDT Subjective: Patient ID: Tatyana Skelton is a 66 y.o. female. HPI The patient is a 66-year-old female seen in the [facility]. 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 ER was negative, UT was negative, HER-2 was negative. MRI scan [...] and cyclophosphamide 01/16/2021 Complete 4 taxol 04/18 The patient returns to the [facility]. She is currently receiving neoadjuvant chemotherapy for her triple negative right-sided breast cancer. She has been tolerating dose dense Taxol quite well. She is here for her fourth cycle. She is looking forward to completing her neoadjuvant chemotherapy program Her energy continues to be good. She does have a little bit of numbness in her fingertips. Appetite has been good. Weight has been stable. She did have negative genetic testing for high risk of familial breast cancer. She has decided on pursuing bilateral mastectomies and has an appointment with Dr. Fernandez next week at [facility]. Patient Active Problem List Diagnosis Code ??? UC (ulcerative colitis) K51.90 ??? HTN (hypertension) I10 ??? Hypothyroidism E03.9 ??? History of diverticulitis Z87.19 ??? Malignant neoplasm of upper-outer quadrant of right breast in female, estrogen receptor [id number], Z17.1 Type 1 diabetes diagnosed as an adult Current Outpatient Medications: ??? sulfaSALAzine (Azulfidine) 500 mg Tablet, Take 4 tablets by mouth 2 times daily., Disp: 720 tablet, Rfl: 3 ??? Dexcom G6 Sensor Device, 1 each by Misc.(Non-Drug; Combo Route) route continuous. To be changed every 10 days., Disp: 9 Device, Rfl: 3 ??? Dexcom G6 Transmitter Device, [...] Dexcom, Disp: 100 each, Rfl: 3 ??? Lantus Solostar U-100 Insulin pen, Inject 18 Units subcutaneously every morning. (Patient takingdifferently: Inject 18-20 Units subcutaneously every morning.), Disp: 15 mL, Rfl: 3 ??? humaLOG KwikPen 100 unit/mL Insulin Pen, Inject 1-6 Units subcutaneously 3 times daily (before meals). ICD 10 Code: E10.9, Disp: 15 mL, Rfl: 3 ??? loratadine (Claritin) 10 mg Tablet, Take 10 mg by mouth daily., Disp: , Rfl: ??? senna (Senokot) 8.6 mg Tablet, Take by mouth daily., Disp: , Rfl: ??? LORazepam (Ativan) 0.5 mg Tablet, Take 1 tablet by mouth every 6 hours as needed for Anxiety. May also take one by mouth every 6 hours as needed for nausea., Disp: 30 tablet, Rfl: 0 ??? prochlorperazine (Compazine) 10 mg Tablet, Take 1 tablet by mouth every 6 hours as needed for Nausea., Disp: 30 tablet, Rfl: 1 ??? ascorbic acid, vitamin C, (VITAMIN C) [...] daily., Disp: 90 tablet, Rfl: 3 ??? Dexcom G6 Bed And Breakfast Operator Misc, 1 each by Misc.(Non-Drug; Combo Route) route continuous. Use to continuously monitor blood glucose., Disp: 1 each, Rfl: 0 ??? estradioL (ESTRACE) 0.01 % (0.1 mg/gram) [...] mg tablet, , Disp: , Rfl: ??? polyethylene glycol 3350 (MIRALAX ORAL), Take by mouth., Disp: , Rfl: ??? glucagon, Human Recombinant, (GLUCAGON EMERGENCY KIT, HUMAN,) 1 mg Recon Soln, Inject 1 mL into the muscle as needed (severe hypoglycemia with unconsciousness). (Patient not taking: Reported on 03/27/2021), Disp: 3 each, Rfl: 3 No current facility-administered medications for this visit. Facility-Administered Medications Ordered in Other Visits: ??? pegfilgrastim (Neulasta Onpro) (6 mg/0.6 mL) injection kit 6 mg, 6 mg, Subcutaneous, Once, Aldo Gaming MD ??? PACLitaxeL (Taxol) 308 mg in sodium chloride 0.9% Non-PVC 551.3333 mL infusion, 175 mg/m2/dose (Treatment Plan Recorded), Intravenous, Once, Aldo Gaming MD, Last Rate: 184 mL/hr at 04/24/21 1226, 308 mg at 04/24/21 1226 ??? heparin (pf) (porcine) (100 units/mL) flush 5 mL syringe 500 Units, 500 Units, Intravenous, OncePRN, Aldo Gaming MD ??? sodium chloride 0.9 % (flush) flush 5-20 mL, 5-20 mL, Intravenous, Q1 Min PRN, Aldo Gaming MD Allergies Allergen Reactions ??? Contrast [Iodine And Iodide Containing Products] Nausea And Vomiting and Other (See Comments) Neck swelling ??? Lisinopril Other (See Comments) Caused a dry cough ??? Lactose Diarrhea Social History Socioeconomic History ??? Marital status: Spouse name: Not on file ??? Number of children: Not on file ??? Years of education: Not on file ??? Highest education level: Not on file Occupational History ??? Not on file Tobacco Use ??? Smoking status: Never Smoker ??? Smokeless tobacco: Never Used Substance and Sexual Activity ??? Alcohol use: No ??? Drug use: No ??? Sexual activity: Yes Partners: Male Other Topics Concern ??? Not on file Social History Narrative x 35 years with 3 children. 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 Nonsmoker ETOH: once a week Social Determinants of Health Financial Resource Strain: ??? Difficulty of Paying Living Expenses: Food Insecurity: ??? Worried About Running Out of Food in the Last Year: ??? Ran Out of Food in the Last Year: Transportation Needs: No Transportation Needs ??? Lack of Transportation (Medical): No ??? Lack of Transportation (Non-Medical): No Physical Activity: ??? Days of Exercise per Week: ??? Minutes of Exercise per Session: Family History Problem Relation Age of Onset ??? Prostate Cancer Brother 74 ??? Ovarian Cancer Paternal Grandmother 45 at age 51 ??? Breast Cancer Maternal Great-Grandmother Mother's MGM ??? Uterine Cancer Maternal Aunt 81 ??? Melanoma Maternal Cousin 68 ??? Leukemia Maternal Cousin 74 ??? Melanoma Maternal Cousin 74 ??? Stomach Cancer Maternal Cousin 65 ??? Liver Cancer Maternal Cousin 65 ??? Lung Cancer Maternal Cousin 40 at 48 Breast cancer in a great grandmother Review of Systems Constitutional: Negative for fatigue, [...] other systems reviewed and are negative. BP 130/75 (Patient Position: Sitting) Pulse 79 Temp 36.4 ??C (97.5 ??F) (Temporal) Resp 20 Ht 171 cm (5' 7.32) Wt 64.7 kg (142 lb 10.2 oz) SpO2 98% BMI 22.13 kg/m?? Sclera white Mucous membranes moist Normal respiratory effort Heart regular rate Extremities no edema Skin no rash Neuro nonfocal Labs White count 8.6, ANC 7.1, hemoglobin 11.2, platelets 200 Creatinine 0.7, alk phos 107 Assessment and Plan: 66-year-old female who has a right-sided breast cancer. She had a 2.1 cm triple negative breast cancer and opted for neoadjuvant chemotherapy. She completed 4 cycles of dose dense Adriamycin and cyclophosphamide and is here for her fourth and final cycle of dose dense Taxol. Overall she has been tolerating therapy quite well. Labs are adequate to proceed with her fourth andfinal dose of Taxol today. We did talk about follow-up after her surgery. We would want to evaluate whether she would be a candidate for postoperative chemotherapy if she has residual disease at the time of her surgical procedure. We will plan to see her back here in clinic 3 to 4 weeks after her surgery is completed. She will need her port to be flushed once a month. I would not consider discontinuing the port untilafter her surgical procedure is completed. documented in this encounter Plan of Treatment Upcoming Encounters Date Type Specialty Care Team Description 10/15/2022 Office Visit Hematology and Oncology Aldo Gaming MD [facility] [place] [place] [address] (Wo rk) documented as of this encounter Visit Diagnoses Diagnosis Malignant neoplasm of upper-outer quadra nt of right breast in female, estrogen receptor negative documented in this encounter Care Teams Fur Trimming Machine Operator Relationship Specialty Start Date End Date Bang Heath MD PCP - General General Internal Medicine 01/18/19 1 [address] [facility] [address] [place] [address] documented as of this encounter
--- OUTSIDE RECORDS SUMMARY | 2022-09-09 09:38 | XMS_ITS | Encounter Summary ---
:1955 Author Organization [facility] [place] [address] Care Team Providers Name Role Phone None Primary Care Provider Unavailable Encounter Details Date Type Department Care Team Description 06/18/2021 Multidisciplinary Care Hematology and Kya Alvarado Committee Oncology at [facility] MD [facility] [address] [place] HEMATOLOGY/ONCOL [address] OGY [phone] [place] [address] Social History Tobacco Use Types Packs/Day Years [...] documented as of this encounter Progress Notes Kya Alvarado MD - 06/18/2021 11:21 AM EDT Breast - Tumor Board Note Date Presented: 06/18/2021 Presenting Physician: Rebecca Diagnosis/Tumor Site:right triple negative breast cancer Is this Metastatic Disease: No Synopsis of History/HPI:Sangeeta presented for screening mammogram in October,. Left [...] DO Verified: ??05/30/2021 16:20 ??Pathologist Performed at: ??-[facility] Dept. of Pathology, [place], [place] SYNOPTIC Specimen Parts: ??A, B Specimen [...] Lymph Nodes Examined: ??3 ? Number of Hodges Nodes Examined: ??3 Pathologic Stage Classification (pTNM, AJCC 8th Edition) ?TNM Descriptors: ??y (post-treatment) ?Primary Tumor (pT): ??pT2 ?Regional Lymph Nodes Modifier: ??(sn): Hodges node(s) evaluated. ?Regional Lymph Nodes (pN): ??pN0 [...] mutation SH: with 3 children. Grandchildren in [place]. Non smoker. 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 Standard guidelines for additional adjuvant therapy with capecitabine still apply until further data is available. Recommendations: Radiation Oncology consult followed by adjuvant capecitabine with [place]. Gaming [place] [facility] DISCLAIMER: The patient was discussed and the tumor board made recommendations but it is ultimately up to the treatment provider(s) and the patient to determine the patient???s care. documented in this encounter Plan of Treatment Upcoming Encounters Date Type Specialty Care Team Description 10/15/2022 Office Visit Hematology and Oncology Aldo Gaming MD [facility] HEMATOLOGY/ONCOL [facility] DEPT. [place], [place] [address] (Wo rk) documented as of this encounter Visit Diagnoses Not on filedocumented in this encounter Care Teams Income Tax Manager Relationship Specialty Start Date End Date None PCP - General 06/11/21 04/02/22 None documented as of this encounter
--- OUTSIDE RECORDS SUMMARY | 2022-09-09 09:38 | XMS_ITS | Encounter Summary ---
:1955 [place] [address] Care Team Providers Name Role Phone Bang Heath MD Primary Care Provider Encounter Details Date Type Department Care Team Description 05/23/2021 Anesthesia Event Outpatient Surgery Ghulam Carey MD [facility] [place] [address] [place] Sayda Glaser MD [facility] [place] [address] [place] [address] Anesthesia Record Procedure Summary Procedure Name Responsible Anesthesia Start Anesthesia Stop Time Anesthesiologist Time MASTECTOMY, SIMPLE, Janina Carey MD 05/23/21 0848 1154 COMPLETE-JORDYN (WRVU 15.85) (Bilateral Breast) Events Date Time Event Comment 05/23/2021 0848 Start 0854 AN Verify 0854 An Start Data 0856 An Induction 0859 An Intubation 0901 Anesthesia Ready 0925 Procedure Start 0931 1025 Break/Relief In I assumed care f or Break Relief before which we: 1. Identifie d the patient 2. Identified the responsible provider(s) 3. Reviewed the pertinent medica l history 4. Discussed the surgical plan an d course 5. Reviewed intra-op anesthesia manag ement and issues during anesthesia 6. Se t expectations for the relief (and/or post-pro cedure) period 7. Allowed opportunity for questions and acknowledgement of understanding Janina Carey MD 1047 Break/Relief Out 1058 Quick Note Pt. Sitting up p er surgeon request. 1145 Extubation/LMA Out 1149 an stop data 1154 Recovery or ICU Handoff Patient care was transferred to the destination unit staff after review of the patient's medica l history, current anesthetic/surgi tee status and plan, according to the Provider Handoff Checklist. 1154 Stop Name Total Propofol 300 mg Propofol INF 447.36 mg fentaNYL 100 mcg Midazolam 2 mg IV Lidocaine 100 mg Ondansetron 8 mg ePHEDrine 35 mg BUpivacaine 0.25% 60 mL PHENYLephrine 400 mcg ceFAZolin (Ancef) 2 g in dextrose 5% 100 mL infusion 2 g ketorolac (Toradol) (30 mg/mL) injection 30 mg lactated ringers infusion 1,300 mL Agents Name O2 Air N2O Sevoflurane (et) Blood No blood administrations on file. Lines, Drains, and Airways Type Details Placement Removal Implanted Port - Single 01/10/21; 1500; 01/10/21 1500 by Lumen (non-apheresis) infraclavicular fossa, Yuliet Watson L, left; power injectable RN port; superior vena cava; Gigi Epps MD Drain/Device Site 05/23/21; 1031; Left; 05/23/21 1031 by lower; chest; collapsible Dellisanti, Twyla closed device; 19F A, RN Drain/Device Site 05/23/21; 1047; Right; 05/23/21 1047 by medial; chest; collapsible Dellisanti, Twyla closed device A, RN PIV 05/23/21; 0839; metacarpal 05/23/21 0839 by 04/30 04/18 1335 by vein (top of hand), left; Juan De La Garza McN amara, Tracy L [id number] catheter RN system; 22 gauge; 05/23/21; 1335 PIV 05/23/21; 0848; dorsal 05/23/21 0848 by 05/23/21 1335 by arch vein (top of hand), Ankit Hawthorne, Dora jamie, Lyubov L left; [id number]-mygofa IT ARCHITECT catheter system; 22 gauge; Ankit Hawthorne CRNA; 05/23/21; 1335 Supraglottic Mask Ventilation: Not 05/23/21 0859 by 05/23/21 1149 by Attempted (0); LMA Type: Ankit Hawthorne, Ankit Khan; LMA Size: 3; CAIN Pan, IT ARCHITECT Inserted by: Ankit Hawthorne CRNA Incision 05/23/21; 0926; Right; 05/23/21 0926 by 07/27/22 1715 by breast; 07/27/22 (LDA Dellisanti, Twyla Still, Dierdre L cleanup utility RA#[id number]); Earl, RN 1715 (LDA cleanup utility RA#[id number]) Incision 05/23/21; 0926; Left; 05/23/21 0926 by 07/27/22 1715 by breast; 07/27/22 (LDA Dellisanti, Twyla Still, Dierdre L cleanup utility RA#[id number]); Earl, RN 1715 (LDA cleanup utility RA#[id number]) documented in this encounter Social History Tobacco Use Types Packs/Day Years [...] PM EST documented as of this encounter OR Notes Anesthesia Postprocedure Evaluation - Janina Carey MD - 05/23/2021 5:02 PM EDT Department of Anesthesiology Post-procedure Note Patient: Tatyana Skelton Procedure Summary Date: 05/23/21 Room / Location: [facility] OR [address] [place] [address] Anesthesia Start: 847 Anesthesia Stop: 1154 Procedures: MASTECTOMY, SIMPLE, COMPLETE-JORDYN (WRVU 15.85) (Bilateral Breast) BIOPSY OR EXCISION OF LYMPH NODE(S), OPEN, DEEP AXILLARY NODE(S) (WRVU 6.43) (Right Axilla) INTRAOPERATIVE ID (MAPPING) SENTINEL LYMPH NODE,INCLUDES INJECTION (WRVU 2.5) (Right ) MODIFIER SENTINEL NODE EXCISION (Right ) REMOVAL OF TUNNELED CENTRAL VENOUS ACCESS DEVICE, WITH PORT OR PUMP (WRVU 3.35) (Left Chest) Diagnosis: (BREAST CANCER) Surgeons: Demetra Fernandez MD Responsible Provider: Janina Carey MD Anesthesia Type: general ASA Status: 2 All Anesthesia Providers: Anesthesiologist: Janina Carey MD IT ARCHITECT: Ankit Hawthorne CRNA Vitals Value Taken Time BP 116/65 05/23/21 1300 Temp 36.1 ??C (97 ??F) 05/23/21 1151 Pulse 68 05/23/21 1315 Resp 16 05/23/21 1151 SpO2 99 % 05/23/21 1315 Pain Level 3 05/23/21 1315 Patient Location: PACU/SD Level of Consciousness: Awake and Alert Pain Management: Satisfactory Analgesia PONV: None Cardiovascular Status: At Baseline Respiratory Status: Room Air, Stable Respiratory Status and At Baseline Postoperative Fluid Status: Intravascular EUvolemia Possible Anesthetic Complications: NONE apparent at time of evaluation Final Primary Anesthesia Type: General (The anesthetic type performed was the same as planned.) Comments: Ms. Skelton tolerated the procedure well and without complication. VSS on RA. Moderate post-operative discomfort responded well to PRN tramadol. Anesthesia Procedure Notes - Marcos Tate MD - 05/23/2021 9:18 AM EDT Associated Order(s): Anesthesia Block Anesthesia Block Performed by: Marcos Tate MD Authorized by: Janina Carey MD Start Time: 05/23/2021 9:08 AM End Time: 05/23/2021 9:16 AM Patient Location: Main OR The patient was greeted; the risks and benefits of the procedure were reviewed. Indication: Post-op Pain Control Post-op pain management at the request of surgeon. Block Type: PEC block Laterality: Bilateral Position: Supine Prep: Chlorhexidine, mask, cap, sterile gloves, hand hygeine and patient draped Block Technique: P-pgdxx-uachn 21 10 cm Ultrasound Guided: YES and in-plane Ultrasound Image Saved Ultrasound guidance was used to identify the targeted neuronal structure. Ultrasound was also used to identify needle position and to identify tissue (bone, muscle, and blood vessels) to prevent inadvertent intraneural or intravascular needle placement and injection. The spread of local anesthetic was confirmed with live ultrasound imaging.?? Single-Shot: Single-shot Local Anesthetic Volume(s) Injected for Nerve Block: BUpivacaine 0.25%, 60 mL Nerve Sensory/MotorTest: Events: no complications Staff: Fellow:: Marcos Tate MD Attending Physician:: Janina Carey MD Notes: Target structures, needle, and local anesthetic spread were visualized under US guidance for the duration of the procedure. 30 cc each side Anesthesia Preprocedure Evaluation - Janina Carey MD - 05/23/2021 8:20 AM EDT Pre-Anesthesia Evaluation for: Tatyana Skelton a 66 y.o. female. Procedure(s): MASTECTOMY, SIMPLE, COMPLETE-JORDYN (WRVU 15.85) BIOPSY OR EXCISION OF LYMPH NODE(S), OPEN, DEEP AXILLARY NODE(S) (WRVU 6.43) INTRAOPERATIVE ID (MAPPING) SENTINEL LYMPH NODE,INCLUDES INJECTION (WRVU 2.5) MODIFIER SENTINEL NODE EXCISION Patient Active Problem List Diagnosis ??? Malignant [...] daily 08/2013. ??? HTN (hypertension) ??? Hypothyroidism Past Medical History: Diagnosis Date ??? History of diverticulitis 09/17/2014 ??? HTN (hypertension) ??? Hypothyroidism ??? Malignant neoplasm of upper-outer quadrant of right breast in female, estrogen receptor negative01/03/2021 ??? UC (ulcerative colitis) 09/11/2013 Past Surgical History: Procedure Laterality Date ??? PRO COLONOSCOPY, BIOPSY 12/15/2012 COLONOSCOPY FLEXIBLE, WITH BX performed by Marily Guillermo MD at [facility] ??? PRO COLONOSCOPY, BIOPSY 11/08/2013 COLONOSCOPY FLEXIBLE, WITH BX performed by Dequan Francis MD at [facility] ??? PRO COLONOSCOPY, BIOPSY N/A 06/27/2015 COLONOSCOPY FLEXIBLE, WITH BX performed by Marily Guillermo MD at [facility] ??? PRO COLONOSCOPY, BIOPSY N/A 06/08/2017 COLONOSCOPY FLEXIBLE, WITH BX (WRVU 3.66) performed by Marily Guillermo MD at [facility] ??? PRO COLONOSCOPY, BIOPSY N/A 06/29/2019 COLONOSCOPY FLEXIBLE, WITH BX (WRVU 3.66) performed by Marily Guillermo MD at [facility] ??? PRO COLONOSCOPY, DIAGNOSTIC N/A 06/27/2015 COLONOSCOPY, DIAGNOSTIC performed by Marily Guillermo MD at [facility] ??? PRO COLONOSCOPY, REMV LESN, SNARE N/A 06/29/2019 COLONOSCOPY, POLYPECTOMY, REMOVAL LESION BY SNARE (WRVU 4.67) performed by Marily Guillermo MD at [facility] ??? TUBAL LIGATION 1990 Social History Tobacco Use ??? Smoking status: Never Smoker ??? Smokeless tobacco: Never Used Substance Use Topics ??? Alcohol use: No Social History Substance and Sexual Activity Drug Use No Allergies Allergen Reactions ??? Contrast [Iodine And Iodide Containing Products] Nausea And Vomiting and Other (See Comments) Neck swelling ??? Lisinopril Other (See Comments) Caused a dry cough ??? Lactose Diarrhea Medications: MAR and/or home medications have been reviewed. Physical Exam: Preprocedure Vitals Current as of 05/23/21 0820 No BP, pulse, respiration, SpO2, or temperature recorded. Height: Weight: BMI: IBW: Airway Assessment: Mallampati: I TM distance: >3 FB Neck ROM: full Cardiovascular Assessment: Rhythm: regular Rate: normal Pulmonary Assessment: unlabored breathing Dental Assessment: - normal exam Misc Assessment: Patient is wearing No contact(s). IV access: Peripheral line Last Filed Perioperative Cognitive Screening None Anesthesia Plan: ASA 2 general, with a(n) intravenous induction Ms. Skelton is a 66 year old female with PMHx of HTN, hypothyroidism, IDDM (held metformin this AM; took lantus, FBS 263, implanted glucose monitor), UC, and breast cancer scheduled for sentinel node excision and bilateral mastectomy. Allergies reviewed. Plan for preoperative Tylenol, bilateral PEC block, GA/LMA. Risks were discussed at length, and all questions and concerns were addressed. Consent was obtained, and the appropriate paperwork was placedin the patient's chart. Region - Other Informed Consent: Anesthetic plan and risks discussed with patient and spouse. Plan discussed with IT ARCHITECT. Anesthesia Screening documented in this encounter Plan of Treatment Upcoming Encounters Date Type Specialty Care Team Description 10/15/2022 Office Visit Hematology and Oncology Aldo Gaming MD [facility] HEMATOLOGY/ONCOL ANTIONE DEPT. [place], [place] [address] (Wo rk) documented as of this encounter Procedures Procedure Name Priority Date/Time Associated Diagnosis Comme nts ANESTHESIA BLOCK Routine 05/23/2021 9:18 AM Resul ts for this EDT procedure are i n the results section. documented in this encounter Results Anesthesia Block (05/23/2021 9:18 AM EDT) Narrative Janina Carey MD - 05/23/2021 9:18 AM EDT Marcos Tate MD ? 05/23/2021 ??9:20 AM Anesthesia Block Performed by: Marcos Tate MD Authorized by: Janina Carey MD Start Time: ??05/23/2021 9:08 AM End Time: ??05/23/2021 9:16 AM Patient Location: ??Main OR The patient was greeted; the risks and b enefits of the procedure were reviewed. ?? Indication: ??Post-op Pain Control Post-op pain management at the request o f surgeon. ?? Block Type: ??PEC block Laterality: ??Bilateral Position: ??Supine Prep: ??Chlorhexidine, mask, cap, steril e gloves, hand hygeine and patient draped Block Technique: ?? L-npnio-aovas ?? 21 ?? 10 cm ??Ultrasound Guided: ??YES and in-plane ??Ultrasound Image Saved ?Ultrasound guidance was used to ident leslie the targeted neuronal structure. Ultrasound was also used to i dentify needle position and to identify tissue (bone, muscle, and blood vessels) to prevent inadvertent intraneural or intravascular needle plac ement and injection. The spread of local anesthetic was confirmed with live ultrasound imaging.?Single-Shot: ??Single-shot Local Anesthetic Volume(s) Injected for Nerve Block: ?? BUpivacaine 0.25%, 60 mL Nerve Sensory/MotorTest: ??Events: no complications ?? Staff: ??Fellow:: ??Marcos Tate MD ??Attending Physician:: ??Rubi Carey MD Notes: ?? Target structures, needle, and local anesthetic spread were visualized under US guidance for the duration of e procedure. 30 cc each side Janina Carey MD LITHOGRAPHIC PHOTOGRAPHER [facility] documented in this encounter Visit Diagnoses Not on filedocumented in this encounter Administered Medications Inactive Administered Medications - up to 3 most recent administrations Medication Order MAR Action Action Date Dose Rate Site BUpivacaine (Marcaine) (2.5 mg/mL) Given 05/23/2021 9:18 AM EDT 60 mLs 0.25% bolus injection (Anesthesia) Epidural, Starting on Wed05/23/21 at 0918, Until Wed05/23/21 at 0918, Anesthesia Intra-op, Routine ceFAZolin (Ancef) 2 g in dextrose 5% 100 mL Given 05/23/2021 9:0 1 AM EDT 2 g infusion 2 g, Intravenous, EVERY 3 HOURS, 1 dose, First dose on Wed05/23/21 at 0830, Administer over 30 Minutes, Intra-Operative (Intra-Procedure), Indication for (Active or Suspected): Prophylaxis ePHEDrine sulfate (5 mg/mL) multi-dose Given 05/23/2021 10:59 AM EDT 5 mg injection Intravenous, PRN, Starting on Wed05/23/21 at 0918, Until Wed05/23/21 at 1202, Anesthesia Intra-op, Routine Given 05/23/2021 10:56 AM EDT 5 mg Given 05/23/2021 10:40 AM EDT 5 mg fentaNYL (pf) (50 mcg/mL) multi-dose Given 05/23/2021 10:18 AM E DT 25 mcg injection Intravenous, PRN, Starting on Wed05/23/21 at 0910, Until Wed05/23/21 at 1202, Anesthesia Intra-op, Routine Given 05/23/2021 9:51 AM EDT 25 mcg Given 05/23/2021 9:30 AM EDT 25 mcg ketorolac (Toradol) (30 mg/mL) injection Given 05/23/2021 9:36 AM EDT 30 mg Intravenous, PRN, Starting on Wed05/23/21 at 0936, Until Wed05/23/21 at 1202, Anesthesia Intra-op, Routine lactated ringers infusion New Bag 05/23/2021 11:14 AM EDT 1,000 mL, at 100 mL/hr, Intravenous, CONTINUOUS, Starting on Wed05/23/21 at 0830, Until Wed05/23/21 at 1336, Day of Surgery (Day of Procedure) New Bag 05/23/2021 8:48 AM EDT lidocaine (pf) (Xylocaine) (20 mg/mL) 2% Given 05/23/2021 8:56 A M EDT 100 mg injection syringe Intravenous, PRN, Starting on Wed05/23/21 at 0856, Until Wed05/23/21 at 1202, Anesthesia Intra-op, Routine midazolam (pf) (Versed) (1 mg/mL) multi-dose Given 05/23/2021 8: 48 AM EDT 2 mg injection Intravenous, PRN, Starting on Wed05/23/21 at 0848, Until Wed05/23/21 at 1202, Anesthesia Intra-op, Routine ondansetron (pf) (Zofran) (2 mg/mL) inje ction Given 05/23/2021 11:28 AM EDT 4 mg Intravenous, PRN, Starting on Wed05/23/21 at 0859, Until Wed05/23/21 at 1202, Anesthesia Intra-op, Routine Given 05/23/2021 8:59 AM EDT 4 mg PHENYLephrine in NS (PF) (BENNY-SYNEPHRINE) Given 05/23/2021 11:10 AM EDT 80 mcg 0.8 mg/10 mL (80 mcg/mL) multi-dose injection Syrg Intravenous, PRN, Starting on Wed05/23/21 at 0923, Until Wed05/23/21 at 1202, Anesthesia Intra-op, Routine Given 05/23/2021 11:09 AM EDT 80 mcg Given 05/23/2021 10:59 AM EDT 80 mcg propofoL (Diprivan) 10 mg/mL bolus injection Given 11:44 AM EDT 20 mg (Anesthesia) Intravenous, PRN, Starting on Wed05/23/21 at 0856, Until Wed05/23/21 at 1202, Anesthesia Intra-op Given 05/23/2021 11:38 AM EDT 30 mg Given 05/23/2021 8:59 AM EDT 50 mg propofoL (Diprivan) infusion Rate/Dose 05/23/2021 11:12 30 mcg/kg/min 11.43 Intravenous, CONTINUOUS PRN, Change AM EDT mL/hr Starting on Wed05/23/21 at 0900, Until Wed05/23/21 at 1202, Anesthesia Intra-op, Routine Rate/Dose Change 05/23/2021 11:02 AM EDT 50 mcg/kg/min 19.05 mL/hr Rate/Dose Change 05/23/2021 10:49 AM EDT 75 mcg/kg/min 28.575 mL/hr documented in this encounter Care Teams Construction Cost Estimator Relationship Specialty Start Date End Date Bang Heath MD PCP - General General Internal Medicine 01/18/[address] [place] [address] 1 [place] [address] documented as of this encounter
--- OUTSIDE RECORDS SUMMARY | 2022-09-09 09:38 | XMS_ITS | Encounter Summary ---
:1955 Author Organization [facility] Address [address] [address] Care Team Providers Name Role Phone None Primary Care Provider Unavailable Reason for Visit Reason Onset Date Comments New Medication Request 07/04/2021 New script alcon tabsergio Encounter Details Date Type Department Care Team Description 07/04/2021 Telephone Hematology Oncology at [facility], New Medication Request [facility] RN (New script [address] capecitabine) [place] [id number] Social History Tobacco Use Types Packs/Day Years [...] encounter Miscellaneous Notes Telephone Encounter - [facility] RN - 07/04/2021 2:21 PM EDT Oral Chemotherapy Check Note 07/03/2021 Tatyana Skelton, 1955 Prescriptions for oral chemotherapy were reviewed as follows: Oral Chemotherapy Order : capecitabine (Xeloda) 1500 mg by mouth two times daily. Order details: ?? Dose: 1500 mg ?? Route: oral ?? Quantity to be dispensed #: 84 tablets ?? Number of refills: none ?? Instructions: Take 3 tablets of 500 mg (1500 mg) by mouth two times daily ?? Cycle number and length: take for 14 days. ?? Start date: When available. Plan of care compared to information in the medical record, including note from provider on 07/03/21. The prescription was found To be complete and accurate. It was e-prescribed to [facility] pharmacy. Oral Chemotherapy Assessment Note 07/03/2021 Tatyana Skelton, 1955 Assessment of Tatyana Skelton???s living situation reveals that she lives with her spouse. The patient will be responsible for her medication administration. Medications reviewed, including prescription and non-prescription medications. Tatyana Skelton has insurance. Co-pay predicted to be $50.73. [facility] will call the patient. The patient reports that she : ?? is able to swallow pills. ?? is able to open medication bottles/packages without problems. ?? is not experiencing any symptoms that will affect the ability to keep down medications (no nausea, vomiting, mucositis, or difficulty swallowing). ?? is willing to fill prescriptions with Specialty Pharmacy. What pharmacy would the patient like to have the medication dispensed from? [facility] The patient verifies: ?? ability to read and understand the drug label instructions. ?? understanding of treatment plan with oral chemotherapy. ?? understanding that medication will be dispensed from a speciaty pharmacy. This medication will bedelivered to the home (instructed to call nurse if he/she does not hear from the pharmacy regarding delivery). ?? that she will need labs drawn to be determined by provder. documented in this encounter Plan of Treatment Upcoming Encounters Date Type Specialty Care Team Description 10/15/2022 Office Visit Hematology and Oncology Aldo Gaming MD [facility] HEMATOLOGY/ONCOL ANTIONE DEPT. [place], [place] [address] (Wo rk) documented as of this encounter Visit Diagnoses Not on filedocumented in this encounter Care Teams Leasing Professional Relationship Specialty Start Date End Date None PCP - General 06/11/21 04/02/22 None documented as of this encounter
--- OUTSIDE RECORDS SUMMARY | 2022-09-09 09:38 | XMS_ITS | Encounter Summary ---
:1955 [place] [address] Care Team Providers Name Role Phone Bang Heath MD Primary Care Provider Encounter Details Date Type Department Care Team Description 04/15/2021 Ancillary Procedure Radiology Library Demetra Fernandez Malignant neoplasm at [facility] [place] Maxim of upper-outer [facility] breast in female, [place], [place] GENERAL SURGERY estrogen receptor [id number] [place], [place] negative [phone] [id number] Social History Tobacco Use Types Packs/Day Years [...] [facility] HEMATOLOGY/ONCOL [facility] DEPT. [place], [place] [address] (Wo rk) documented as of this encounter Procedures Procedure Name Priority Date/Time Associated Diagnosis Comme nts REQUEST FOR 2ND Routine 04/15/2021 2:41 PM Malignant neoplasm Results for this READ MAMMO EDT of upper-outer procedure are in quadrant of right the result s breast in female, section. estrogen receptor negative documented in this encounter Results Request for 2nd read Mammo (04/15/2021 2:41 PM EDT) Anatomical Region Laterality Modality SO Specimen (Source) Anatomical Location Collection Method / Collectio n Time Received Time / Laterality Volume Impressions 04/15/2021 4:12 PM EDT 1. ??Multifocal multicentric biopsy-proven right breast malignancy. 2. ??No left breast malignancy within th e limitations of technique as detailed above. 3. ??No abnormal lymph nodes. Right breast: BI-RADS Category 6: Known Biopsy-Proven Malignancy Left breast: BI-RADS Category 1: Negativ e RECOMMENDATION: Given that the prior breast MRI was perf ormed in November 2020 and the patient has been undergoing chemotherapy in the interim, a repeat MRI of the breast should be performed prior to surgery if breast conservation therapy is desired. Please note: The interpretation of the D [facility] Breast Imaging Radiologist subspecialist may differ fro m the original radiologists interpretation. This is usually not due to a deficiency of the original interpreting radiologist, rather due to the greater skill level afforded by sub-specialization in the field and/or r easonable variations in interpretations. If you have a concern regarding the D- interpretation you may contact the D- Breast Employee Services Manager Office at . I have personally reviewed the image(s) and the resident's interpretation and agree with the findings, Kristine boone MD at 04/15/2021 4:12 PM Thank you for letting us participate in the care of this patient. ??If you are a health care provider and have any questi ons regarding this report, please contact the number below. ??For patients who have questions please contact the health post anesthesia care unit nurse that requested your imaging first. ? Electronically signed by: Kristine edmond MD, [facility] ([phone]), at 04/15/2021 4:12 PM Narrative 04/15/2021 4:12 PM EDT INTERPRETATION OF OUTSIDE BREAST IMAGING I have been asked to consult on this pat ient by Dr. Demetra Fernandez because she believes a review of this study may willis ge or alter the care of this patient. STUDIES FROM: [facility] are DATES: 12/26/2020 TYPE OF EXAM: Breast MRI CLINICAL HISTORY: Known breast cancer, s urgical planning; Known breast cancer, surgical planning; What Modality is the exam? Mammography; Body Part (please add comments as necessary): breast; Sending Institution [facility]; Date of exam [id number]; I believe a reinterpretat ion of this exam may alter care of Patient. Yes. ?? COMPARISONS: Prior ultrasound and mammograms of the l eft breast dated 11/19/2020 performed at [facility]. TECHNIQUE: An MRI of the bilateral breas ts was performed following administration of 14 cc of MultiHance on a 1.5T scanner at [facility]. FINDINGS: Interpretation of outside MRI studies is limited due to site-specific protocols and inability to assess dynamic contrast enhancement features. Approximately 3.2 x 1.4 x 3.2 cm region of multifocal masses with abnormal enhancement centered approximately 6.5 c m from the nipple in the right upper outer quadrant (9:00 to 12:00 radian). T here are two additional abnormally enhancing masses measuring 1.0 cm teri lly in the right upper inner quadrant at the 2:00 radian approximately 4 cm from the nipple, highly suspicious for additional sites of malignancy. No masses or sites of abnormal enhanceme nt in the left breast. No suspicious axillary or internal mamma ry adenopathy within the above limitations. No chest wall or skin abnor mality visualized. Procedure Note Zuurbier, Kristine A, MD - 04/15/2021Form atting of this note might be different from the original. INTERPRETATION OF OUTSIDE BREAST IMAGING I have been asked to consult on this pat ient by Dr. Demetra Fernandez because she believes a review of this study may willis ge or alter the care of this patient. STUDIES FROM: [facility] are DATES: 12/26/2020 TYPE OF EXAM: Breast MRI CLINICAL HISTORY: Known breast cancer, s urgical planning; Known breast cancer, surgical planning; What Modality is the exam? Mammography; Body Part (please add comments as necessary): breast; Sending Institution [facility]; Date of exam [id number]; I believe a reinterpretat ion of this exam may alter care of Patient. Yes. COMPARISONS: Prior ultrasound and mammograms of the l eft breast dated 11/19/2020 performed at [facility]. TECHNIQUE: An MRI of the bilateral breas ts was performed following administration of 14 cc of MultiHance on a 1.5T scanner at [facility]. FINDINGS: Interpretation of outside MRI studies is limited due to site-specific protocols and inability to assess dynamic contrast enhancement features. Approximately 3.2 x 1.4 x 3.2 cm region of multifocal masses with abnormal enhancement centered approximately 6.5 c m from the nipple in the right upper outer quadrant (9:00 to 12:00 radian). T here are two additional abnormally enhancing masses measuring 1.0 cm teri lly in the right upper inner quadrant at the 2:00 radian approximately 4 cm from the nipple, highly suspicious for additional sites of malignancy. No masses or sites of abnormal enhanceme nt in the left breast. No suspicious axillary or internal mamma ry adenopathy within the above limitations. No chest wall or skin abnor mality visualized. IMPRESSION 1. Multifocal multicentric biopsy-proven right breast malignancy. 2. No left breast malignancy within the limitations of technique as detailed above. 3. No abnormal lymph nodes. Right breast: BI-RADS Category 6: Known Biopsy-Proven Malignancy Left breast: BI-RADS Category 1: Negativ e RECOMMENDATION: Given that the prior breast MRI was perf ormed in November 2020 and the patient has been undergoing chemotherapy in the interim, a repeat MRI of the breast should be performed prior to surgery if breast conservation therapy is desired. Please note: The interpretation of the D [facility] Breast Imaging Radiologist subspecialist may differ fro m the original radiologists interpretation. This is usually not due to a deficiency of the original interpreting radiologist, rather due to the greater skill level afforded by sub-specialization in the field and/or r easonable variations in interpretations. If you have a concern regarding the D-H interpretation you may contact the [facility] Breast Employee Services Manager Office at . I have personally reviewed the image(s) and the resident's interpretation and agree with the findings, Kristine boone MD at 04/15/2021 4:12 PM Thank you for letting us participate in the care of this patient. If you are a health care provider and have any questi ons regarding this report, please contact the number below. For patients w ho have questions please contact the health post anesthesia care unit nurse that requested your imaging first. Electronically signed by: Kristine edmond MD, [facility] ([phone]), at 04/15/2021 4:12 PM Demetra Fernandez MD IMG OUTSIDE INTERPRETATION O RDERABLES documented in this encounter Visit Diagnoses Diagnosis Malignant neoplasm of upper-outer quadra nt of right breast in female, estrogen receptor negative documented in this encounter Care Teams Rubber Compounder Mixer Relationship Specialty Start Date End Date Bang Heath MD PCP - General General Internal Medicine 01/18/19 [address] [place] [address] documented as of this encounter
--- OUTSIDE RECORDS SUMMARY | 2022-09-09 09:38 | XMS_ITS | Encounter Summary ---
:1955 Author Organization [facility] [place] [address] Care Team Providers Name Role Phone Bang Heath MD Primary Care Provider Reason for Visit Reason Onset Date Comments Other 05/07/2021 [facility] Encounter Details Date Type Department Care Team Description 05/07/2021 Telephone Hematology/Oncology at Ricarda Pierce, Ot her ([facility] resources) [address] OFFICE OF CARE [place], [place] MANAGEMENT [address] Social History Tobacco Use [...] Miscellaneous Notes Telephone Encounter - Ricarda Pierce [facility] - 05/07/2021 2:30 PM EDT TC from pt which BEHAVIOR THERAPIST was expecting from message from VICTOR HUGO Mcgrath. Pt to bring in bill/receipt which will be used to apply to the [facility] for financial assistance. Pt to bring in the information and BEHAVIOR THERAPIST ill assist her in applying to the fund. Will Keep Janina Batres updated re this. documented in this encounter Plan of Treatment Upcoming Encounters Date Type Specialty Care Team Description 10/15/2022 Office Visit Hematology and Oncology Aldo Gaming MD [facility] HEMATOLOGY/ONCOL [facility] DEPT. [place], [place] [address] (Wo rk) documented as of this encounter Visit Diagnoses Not on filedocumented in this encounter Care Teams Staff Nurse Midwife Relationship Specialty Start Date End Date Bang Heath MD PCP - General General Internal Medicine 01/18/[address] [facility] [[email or web address] [address] [place] [address] documented as of this encounter
--- OUTSIDE RECORDS SUMMARY | 2022-09-09 09:38 | XMS_ITS | Encounter Summary ---
:1955 Author Organization [facility] [place] [address] Care Team Providers Name Role Phone None Primary Care Provider Unavailable Encounter Details Date Type Department Care Team Description 07/03/2021 Office Visit Hematology/Oncology Celestina Gaming MD [facility] DR HEMATOLOGY/[place] [address] Malignant neoplasm of at [facility] Karli Leavitt APRN [address] [place] [address] [place] [address] right breast [address] [facility] [address] female, estrogen [place], [place] receptor [place], [phone] unspecified site of [phone] breast Social History Tobacco Use Types Packs/Day Years [...] Sign Reading Time Taken Comments Blood Pressure 126/74 07/03/2021 11:44 AM EDT Pulse 67 07/03/2021 11:44 AM EDT Temperature 36.4 ??C (97.5 ??F) 07/03/2021 11:44 AM EDT Respiratory Rate 16 07/03/2021 11:44 AM EDT Oxygen Saturation 100% 07/03/2021 11:44 AM EDT Inhaled Oxygen Concentration - - Weight 61.2 kg (135 lb) 07/03/2021 11:44 AM EDT Height 171 cm (5' 7.32) 07/03/2021 11:44 AM EDT Body Mass Index 20.94 07/03/2021 11:44 AM EDT documented in this encounter Progress Notes Xiomara Art, RN - 07/03/2021 11:30 AM EDT Oral Chemotherapy Check Note 07/03/2021 Tatyana [...] complete and accurate. It was e-prescribed to [facility] pharmacy. Oral Chemotherapy Assessment Note 07/03/2021 Tatyana Skelton, 1955 Assessment of Tatyana Hawkinssor???s living situation reveals that she lives with her spouse. The patient will be responsible for her medication administration. Medications reviewed, including prescription and non-prescription medications. Tatyana Skelton has insurance. Unknown co-pay.. The patient reports that she : ?? [...] like to have the medication dispensed from? SPECIALTY PHARMACY The patient verifies: ?? ability to [...] labs drawn to be determined by provder. T Aldo Gaming MD - 07/03/2021 11:30 AM EDT Subjective: Patient ID: Tatyana Skelton is a 66 y.o. female. HPI The patient is a 66-year-old female seen in the [facility]. 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 ER was negative, [place] was negative, HER-2 was negative. MRI scan [...] negative Tumor board recommended postoperative adjuvant Xeloda The patient returns to the [facility]. She completed neoadjuvant chemotherapy for her triple negative breast cancer and then underwent bilateral mastectomies. She has recovered well from that. She is here to discuss Xeloda in the postoperative setting since she did not achieve a complete pathologic remission. She is recovered well from her prior chemotherapy. Her energy is excellent. She is back to climbing mountains. She did well with her surgical recovery other than a mild burn on her chest wall. She had several questions after reading the tumor board note including whether she would need radiation therapy which was mentioned there. We discussed that because her tumor was less than 5 cm and that she had negative margins and a totalmastectomy that it was unlikely she would need radiation therapy. We then also talked about Xeloda. We discussed toxicity including cytopenia with risk of infection or bleeding. We discussed mucositis and diarrhea. We discussed skin changes. We discussed rare cardiacspasm and potential NE. We discussed rare deficiency in the enzyme that metabolizes Xeloda so that it could act with higher dose. She was given written information about the drug. Patient Active Problem List Diagnosis Code ??? UC (ulcerative colitis) K51.90 ??? HTN (hypertension) I10 ??? Hypothyroidism E03.9 ??? History of diverticulitis Z87.19 ??? Malignant neoplasm of upper-outer quadrant of right breast in female, estrogen receptor [id number], Z17.1 Type 1 diabetes diagnosed as an adult Current Outpatient Medications: ??? Blood-Glucose Meter,Continuous Misc, by NOT APPLICABLE [...] E10.9, Disp: 15 mL, Rfl: 3 ??? polyethylene glycol 3350 (MIRALAX ORAL), Take by mouth., Disp: , Rfl: ??? ascorbic acid, vitamin [...] bid), Disp: 360 tablet, Rfl: 3 ??? levothyroxine (SYNTHROID) 175 mcg Tablet, Take 1 tablet by mouth daily., Disp: 90 tablet, Rfl: 3 ??? Dexcom G6 Tafe Registrar Misc, 1 each by Misc.(Non-Drug; Combo Route) [...] mg tablet, , Disp: , Rfl: ??? CAPEcitabine (Xeloda) 500 mg tablet, Take 3 tablets (1,500 mg) by mouth 2 times daily. Take within 30 minutes after eating. Call clinic before/prior to starting medication/script., Disp: 84 tablet,Rfl: 0 ??? glucagon (Baqsimi) 3 mg/actuation [place], Non-Aerosol, 3 mg by Nasal route as needed (administer dose into one nostril, may repeat in 15 minutes if no response while awaiting Emergency assistance). (Patient not taking: Reported on 07/03/2021), Disp: 2 each, Rfl: 1 ??? glucagon, Human Recombinant, 1 mg Recon Soln, Inject subcutaneously., Disp: , Rfl: ??? loratadine (Claritin) 10 mg Tablet, Take [...] for Nausea. (Patient not taking: Reported on 07/03/2021), Disp: 30 tablet, Rfl: 1 ??? nystatin (MYCOSTATIN) Cream, , Disp: , Rfl: ??? glucagon, Human Recombinant, (GLUCAGON EMERGENCY KIT, HUMAN,) 1 mg Recon Soln, Inject 1 mL into the muscle as needed (severe hypoglycemia with unconsciousness). (Patient not taking: Reported on 03/27/2021), Disp: 3 each, Rfl: 3 Allergies Allergen Reactions ??? Contrast [Iodine And [...] years with 3 children. 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 Nonsmoker ETOH: once a week Social Determinants [...] other systems reviewed and are negative. BP 126/74 (Patient Position: Sitting) Pulse 67 Temp 36.4 ??C (97.5 ??F) (Temporal) Resp 16 Ht 171 cm (5' 7.32) Wt 61.2 kg (135 lb) SpO2 100% BMI 20.94 kg/m?? Sclera white Mucous membranes moist Normal respiratory effort Heart regular rate Extremities no edema Skin no rash Neuro nonfocal Assessment and Plan: 66-year-old female who has a right-sided breast cancer. She had a 2.5 cm triple negative breast cancer and opted for neoadjuvant chemotherapy. She completed 4 cycles of dose dense Adriamycin and cyclophosphamide and then 4 more doses of Taxol. She underwent bilateral mastectomies and unfortunately hadreally minimal impact on her disease burden. Here now to discuss adjuvant Xeloda. As noted above we discussed expected toxicity and she is willing to proceed. I calculate her dose to be around 2000 mg twice daily for 14 days on and 7 days off. I am going to start her at 1500 mg given that we do not have enzymatic information on her. We will increase the doseif she does well on that. Instructed her to stop the pills if she does develop skin changes or significant diarrhea and to letus know. She is planning on going [place] a vacation to [place] in a few weeks. If we can obtain her Xeloda she will initiate that before her vacation if not she will start it once she gets back. Again her dose will be 1500 mg twice daily for 14 days on and 7 days off. I will plan to see her again her week off and plan to increase her dose if she does well with her current treatment. documented in this encounter Plan of Treatment Upcoming Encounters Date Type Specialty Care Team Description 10/15/2022 Office Visit Hematology and Oncology Aldo Gaming MD [facility] HEMATOLOGY/ONCOL [facility] DEPT. [place], [place] [address] (Wo rk) documented as of this encounter Visit Diagnoses Diagnosis Malignant neoplasm of right breast in fe male, estrogen receptor negative, unspecified site of breast documented in this encounter Care Teams Print Room Worker Relationship Specialty Start Date End Date None PCP - General 06/11/21 04/02/22 None documented as of this encounter
--- OUTSIDE RECORDS SUMMARY | 2022-09-09 09:38 | XMS_ITS | Encounter Summary ---
:1955 Author Organization [facility] Address [address] [place] [address] Care Team Providers Name Role Phone None Primary Care Provider Unavailable Reason for Visit Reason Onset Date Comments New Medication Request 07/17/2021 Received capeciat bine, began taking 07/11 Encounter Details Date Type Department Care Team Description 07/17/2021 Telephone Hematology Oncology at Xiomara Art, New Medication Request [facility] RN (Received capeciatbine, [address] began taking 07/11) [place] [address] Social History Tobacco Use Types [...] Telephone Encounter - Xiomara Art RN - 07/17/2021 3:23 PM EDT Oral Chemotherapy Follow-up Note 07/17/2021 Tatyana Skelton, 1955 Assessment of self-administration of oral chemotherapy is performed via phone call with patient. The patient: ?? filled the prescription at [facility] and began taking this medication on 07/11/21. ?? read back the name and strength of the oral chemotherapy from the label, including the instructions for use as follows: Capecitabine (Xeloda) 1500 mg PO BID. Take all three tablets together on full stomach with full glass of water BID. ?? was able to repeat directions for use in his/her own words and demonstrated understanding of the regimen, including safe handling of oral chemotherapy and its side effects. ?? did not have further questions or problems regarding the oral chemotherapy. ?? Does not require additional assistance.. ?? was reminded to call the oncology clinic with any concerns or questions 24 hours a day / 7 days aweek and contact information was reviewed. ?? Tatyana has an appointment on 07/31/21, her week off and will get labs prior to the visit. documented in this encounter Plan of Treatment Upcoming Encounters Date Type Specialty Care Team Description 10/15/2022 Office Visit Hematology and Oncology Aldo Gaming MD [facility] [place], [place] [address] (Wo rk) documented as of this encounter Visit Diagnoses Not on filedocumented in this encounter Care Teams Mortar Maker Relationship Specialty Start Date End Date None PCP - General 06/11/21 04/02/22 None documented as of this encounter
--- OUTSIDE RECORDS SUMMARY | 2022-09-09 09:38 | XMS_ITS | Encounter Summary ---
:1955 Author Organization [facility] [place] [address] Care Team Providers Name Role Phone Bang Heath MD Primary Care Provider Encounter Details Date Type Department Care Team Description 06/09/2021 Clinical Support General Surgery at [facility] Encounter for change or [facility] [place] [address] Social History Tobacco Use Types Packs/Day [...] encounter Progress Notes Lillian Kay RN - 06/09/2021 2:00 PM EDT Date: 06/09/2021 Time: 2:49 PM Procedure:Case Date: 05/23/2021 ?? Surgeon: Surgeon(s) and Role: * Demetra Fernandez MD - Primary ?? Preoperative [...] WITH PORT OR PUMP (WRVU 3.35) (Left) ?? Drain Site: Right lateral chest Amount of Time Drain was in: 17 days Drainage volume in past 24 hours: 15mL Documentation of drain removal: The patient is [...] further instructions. The nurse's phone number is [phone]. 3. Call the General Surgery nurses or the General Surgery Doctor cardiopulmonary technologist chief if you develop any of the following: [...] and Oncology Aldo Gaming MD [facility] ER DR HEMATOLOGY/ONCOL [facility] DEPT. [place], [place] [address] (Wo rk) documented as of this encounter Visit Diagnoses Diagnosis Encounter for change or removal of drain s Other specified aftercare following surg richie documented in this encounter Care Teams Refrigeration Repair Supervisor Relationship Specialty Start Date End Date Bang Heath MD PCP - General General Internal Medicine 01/18/19 [address] [place] [address] documented as of this encounter
--- OUTSIDE RECORDS SUMMARY | 2022-09-09 09:38 | XMS_ITS | Encounter Summary ---
:1955 Author Organization [facility] [place] [address] Care Team Providers Name Role Phone None Primary Care Provider Unavailable Reason for Visit Reason Onset Date Comments Medication Refill 07/24/2021 Side effect review p riot o refill capecitabine Encounter Details Date Type Department Care Team Description 07/24/2021 Telephone Hematology Oncology at [facility], Medication Refill ([facility] RN effect review priot o [address] [place] [address] Drive refill capecitabine) [place] [phone] Social History Tobacco Use Types [...] Telephone Encounter - [facility], RN - 07/24/2021 9:32 AM EDT Tatyana will be seeing provider on 07/31/21 and her next cycle is due to begin 08/01/21. I called today nigel if she was experiencing side effects to the capecitabine. Tatyana states that she does feel fatigued every day but not enough to keep her from being active. She had 2 days where she experienced 2 loose stools, day 7 and 13. She took one imodium and this stopped the loose stools. She had 2 days ofmild nausea, day 7 and 11. She took one compazine and this had good effect. She had a few times of headache and general ache but stated this could be attributed to the hot and humid weather and that she is quite active. The plan is for labs and provider visit on 07/31. Information to Dr. Gaming. documented in this encounter Plan of Treatment Upcoming Encounters Date Type Specialty Care Team Description 10/15/2022 Office Visit Hematology and Oncology Aldo Gaming MD [facility] ER HEMATOLOGY/[facility] DEPT. [place], [place] [address] (Wo rk) documented as of this encounter Visit Diagnoses Not on filedocumented in this encounter Care Teams Survey Engineer Relationship Specialty Start Date End Date None PCP - General 06/11/21 04/02/22 None documented as of this encounter
--- OUTSIDE RECORDS SUMMARY | 2022-09-09 09:38 | XMS_ITS | Encounter Summary ---
:1955 Author Organization [facility] [place] [address] Care Team Providers Name Role Phone Bang Heath MD Primary Care Provider Reason for Visit Reason Comments Chemotherapy Cycle 8, Day 1 Taxol Injections Neulasta OnPRO Treatment/Therapy Plan Authorization (Routine) - Closed Specialty Diagnoses / Procedures Referred By Contact Refer red To Contact Hematology and Diagnoses Malignant neoplasm of upper-outer quadrant of right female breast Estrogen receptor negative status (ER-) Aldo Gaming MD [facility] Hem Onc Oncology Procedures TC PEGFILGRASTIM-JMDB, BIOSIMILAR, 0.5 MG, INJECTION TC APREPITANT, 1 MG, INJECTION TC PALONOSETRON HCL, 25MCG, INJECTION (ALOXI) TC DOXORUBICIN HCL, 10MG, INJECTION (ADRIAMYCIN) Q5108 pegfilgrastim-jmdb (Fulphila) [facility] Infusion J0185 aprepitant (CINVANTI) J2469 palonosetron (Aloxi) J9000 DOXOrubicin (Adriamycin) J9070 cyclophosphamide (CYTOXAN) NO AUTH NEEDED - J9267 PACLitaxeL (Taxol) [address] Johnson [facility] HEMATOLOGY/[place] [phone] Phone: Fax: Referral ID Status Reason Start Date Expiration Date Visits Requ ested Visits Authorized [id number] Closed 12/17/2020 12/21/2021 99 99 Encounter Details Date Type Department Care Team Description 04/24/2021 Infusion Hematology Oncology at [facility] of [address] [place] [address] Drive right breast in female, [facility], [place] [phone] estrogen receptor negative [phone] Social History Tobacco Use Types Packs/Day Years [...] documented as of this encounter Progress Notes Eb Borden RN - 04/24/2021 11:30 AM EDT INFUSION THERAPY ADMINISTRATION NOTES DIAGNOSIS: Breast Cancer CYCLE #8: Day 1 REASON FOR VISIT: Paclitaxel Chemotherapy & Onpro SUBJECTIVE Tatyana offers no complaints. Seen by METAL CLEANER in clinic. OBJECTIVE LAB DATA: Done today at [facility]- WBC 8.56, Hgb 11.2, Hct 34.3, PLT 200k, ANC 7.15, BUN 13, Cr 0.7 EF 67% on 01/14 IV ACCESS: Mediport accessed at [facility] for lab draw, blood return present and flushes easily. Port flushed with 20cc NS and 500 units Heparin then de-accessed after completion of treatment. Pre administration: Chemotherapy orders independently verified for drug name, route, and dosage per patient's height, weight and BSA by Eb Borden, ANDREW & [facility] onsite. REACTIONS (DESCRIPTION, TIME, INTERVENTION AND EFFECTIVENESS) none ASSESSMENT Sangeeta was awake, alert and tolerated treatment well. Neulasta Onpro applied to MED. Due to deploy 1829, instructed to remove at 7:30 PM when light is solid green. PLAN Return to clinic as scheduled. documented in this encounter Plan of Treatment Upcoming Encounters Date Type Specialty Care Team Description 10/15/2022 Office Visit Hematology and Oncology Aldo Gaming MD [facility] ER HEMATOLOGY/[facility] DEPT. [place], [place] [address] (Wo rk) documented as of this encounter Visit Diagnoses Diagnosis Malignant neoplasm of upper-outer quadra nt of right breast in female, estrogen receptor negative documented in this encounter Administered Medications Inactive Administered Medications - up to 3 most recent administrations Medication Order MAR Action Action Date Dose Rate Site dexamethasone (Decadron) injection Given 04/24/2021 11:44 AM EDT 10 mg 10 mg 10 mg, Intravenous, ONCE, 1 dose, On Kacy 04/24/21 at 1145, Administer 30 minutes prior to PACLitaxel diphenhydrAMINE (Benadryl) capsule 50 mg Given 04/24/2021 11:39 AM EDT 50 mg 50 mg, Oral, ONCE, 1 dose, On Kacy 04/24/21 at 1145, Administer 30 minutes prior to PACLitaxel, Routine famotidine (Pepcid) (10 mg/mL) injection 20 Given 04/24/2021 11:43 AM EDT 20 mg mg 20 mg, Intravenous, ONCE, 1 dose, On Kacy 04/24/21 at 1145, Administer 30 minutes prior to PACLitaxel heparin (pf) (porcine) (100 units/mL) Given 04/24/2021 3:47 PM E DT 500 Units flush 5 mL syringe 500 Units 500 Units, Intravenous, ONCE PRN, Starting on Kacy 04/24/21 at 1124, Until Kacy 04/24/21 at 1755, Line Care, Refer to Intravenous (IV) Procedure: Accessing Implanted Vascular Access Devices (154) procedure and/or Intravenous (IV) Job Aid: Adult Flushing & Catheter Care (2847) job aid for additional information regarding guidelines and administration., Routine ondansetron (Zofran) tablet 8 mg Given 04/24/2021 11:39 AM EDT 8 mg 8 mg, Oral, ONCE, 1 dose, On Kacy 04/24/21 at 1145, Administer prior to chemotherapy, Routine PACLitaxeL (Taxol) 308 mg in New Bag 04/24/2021 12:26 PM EDT 308 m g 184 mL/hr sodium chloride 0.9% Non-PVC 551.3333 mL infusion 308 mg (175 mg/m2/dose ? 1.76 m2 Treatment Plan BSA from Recorded weight), Intravenous, ONCE, 1 dose, On Kacy 04/24/21 at 1245, Administer over 3 Hours, Warning Vesicant/Irritant Medication pegfilgrastim (Neulasta Onpro) (6 mg/0.6 Given 04/24/2021 3:32 P M EDT 6 mg Left Arm mL) injection kit 6 mg 6 mg, Subcutaneous, ONCE, 1 dose, On Kacy 04/24/21 at 1145, Allow the prefilled syringe co-packaged with the on-body injector to reach room temperature at least 30 minutes prior to administration., Routine, This agent is restricted to outpatient use. Is this drug being given as an outpatient? Yes sodium chloride 0.9 % (flush) flush 5-20 mL Given 04/24/2021 3:46 PM EDT 20 mLs 5-20 mL, Intravenous, EVERY 1 MIN PRN, Starting on Kacy 04/24/21 at 1124, Until Kacy 04/24/21 at 1755, Line Care, Flush pertains to all indwelling lines. Flush per protocol found in the job aid using the link provided on this medication record. Refer to Intravenous (IV) Job Aid: Adult Flushing & Catheter Care (5512) job aid for additional information regarding guidelines and administration., Routine sodium chloride 0.9% infusion New Bag 04/24/2021 11:30 AM EDT 1,000 mLs 1,000 mL, Intravenous, ONCE, 1 dose, On Kacy 04/24/21 at 1145 documented in this encounter Care Teams Head Greenskeeper Relationship Specialty Start Date End Date Bang Heath MD PCP - General General Internal Medicine 01/18/[address] [place] [address] documented as of this encounter
--- OUTSIDE RECORDS SUMMARY | 2022-09-09 09:38 | XMS_ITS | Encounter Summary ---
:1955 Author Organization [facility] [place] [address] Care Team Providers Name Role Phone None Primary Care Provider Unavailable Encounter Details Date Type Department Care Team Description 09/01/2021 Orders Only Hematology and Oncol lio at [facility] Marija Garcia [facility] [place] [phone] Social History Tobacco Use Types Packs/Day [...] Visit Hematology and Oncology Aldo Gaming MD [facility] [place]OLOG[facility] [address] (Wo rk) documented as of [...] on filedocumented in this encounter Care Teams Systems Operator Relationship Specialty Start Date End Date None PCP - General 06/11/21 04/02/22 None documented as of this encounter
--- OUTSIDE RECORDS SUMMARY | 2022-09-09 09:38 | XMS_ITS | Encounter Summary ---
:1955 Author Organization [facility] [place] [address] Care Team Providers Name Role Phone Bang Heath MD Primary Care Provider Encounter Details Date Type Department Care Team Description 05/23/2021 Notes Only Care Management [place] [phone] Social History Tobacco Use Types Packs/Day [...] documented as of this encounter Progress Notes Janina Batres MSW - 05/23/2021 11:22 AM EDT CCM/SW was notified that [facility] will assist with pt's medication costs. P- SW will continue to provide support and resources to pt. documented in this encounter Plan of Treatment Upcoming Encounters Date Type Specialty Care Team Description 10/15/2022 Office Visit Hematology and Oncology Aldo Gaming MD [facility] ER HEMATOLOGY/[facility] DEPT. [place], [place] [address] (Wo rk) documented as of this encounter Visit Diagnoses Not on filedocumented in this encounter Care Teams Objects Conservator Relationship Specialty Start Date End Date Bang Heath MD PCP - General General Internal Medicine 01/18/19 [address] [place] [address] documented as of this encounter
--- OUTSIDE RECORDS SUMMARY | 2022-09-09 09:38 | XMS_ITS | Encounter Summary ---
:1955 Author Organization [facility] [place] [address] Care Team Providers Name Role Phone None Primary Care Provider Unavailable Reason for Visit Reason Onset Date Comments Medication Refill 07/24/2021 refill capecitabine Encounter Details Date Type Department Care Team Description 07/24/2021 Telephone Hematology Oncology at [facility], Medication Refill [facility] RN (refill capecitabine) [address] [place] [phone] Social History Tobacco Use Types Packs/Day [...] Telephone Encounter - [facility]omara Art RN - 07/24/2021 11:46 AM EDT Oral Chemotherapy Check Note 07/24/2021 Tatyana Skelton, 1955 Prescriptions for oral chemotherapy were reviewed as follows: Oral Chemotherapy Order : capecitabine 2000 mg oral two times daily. Order details: ?? Dose: 500 mg tablets ?? Route: oral ?? Quantity to be dispensed #: 112 ?? Number of refills: 5 ?? Instructions: Take 4 tablets of 500 mg (2000 mg) by mouth 2 times daily x 14 days, then take 7 days off for a 21 day cycle. Take within 30 minutes after eating. ?? Cycle number and length: 5 cycles ?? Start date: 08/01/21 Plan of care compared to information in the medical record, including note from provider on 07/24/21. The prescription was found To be complete and accurate. It was e-prescribed to [facility] pharmacy. The patient will be seen in clinic 07/31 with labs. documented in this encounter Plan of Treatment Upcoming Encounters Date Type Specialty Care Team Description 10/15/2022 Office Visit Hematology and Oncology Aldo Gaming MD [facility] [place] [place] [address] (Wo rk) documented as of this encounter Visit Diagnoses Not on filedocumented in this encounter Care Teams Blasting Contract Man Relationship Specialty Start Date End Date None PCP - General 06/11/21 04/02/22 None documented as of this encounter
--- OUTSIDE RECORDS SUMMARY | 2022-09-09 09:38 | XMS_ITS | Encounter Summary ---
:1955 [place] [address] Care Team Providers Name Role Phone None Primary Care Provider Unavailable Reason for Visit Reason Comments Medication Management Patient Education Encounter Details Date Type Department Care Team Description 07/25/2021 Specialty Pharmacy Pharmacy at [facility] Kayla Lopez RPH Managem ent; [place] [phone] Social History Tobacco Use Types Packs/Day Years [...] encounter Progress Notes Kayla Jorge RPH - 07/25/2021 1:48 PM EDT Specialty Pharmacy Consultation; Kayla Jorge RPH Comprehensive Medication Management (CMM) Tatyana Lucero Costa Diagnosis: Breast cancer Therapy Start Date: 07/11/21 Contact in person or via telephone:phone Ms. Tatyana Skelton is a 66 y.o. (1955) female who was called today. I spoke with the patient regarding their specialty medication Ibrance and a review of the drug therapy was performed. The medication was filled as scheduled, and all related questions and concerns were addressed. The specialty pharmacy staff will follow up with the patient 5-7 days prior to next refill. Is the patient willing to proceed with the Clinical Assessment? Yes Summary and Recommendations: The patient was feeling well today and not experiencing any side effects. She was glad to have tolerated her initial dose well and understands that now she will be on a higher dose after her recent labs. Medication list reviewed with no major interactions identified. The patient is aware of the importance of lab follow up and infection prevention precautions such as proper hand washing, appropriate vaccination, and wearing a mask during an illness. The importance of adherence to treatment and strategies to improve compliance including use of pill boxes, calendar reminders, or routine alarms was discussed. The patient was instructed to notify the clinic of any upcoming procedures or new medications and OTC products. Resources are available to the patient from the cancer center from dieticians to social work lecturer. Administration, allergies, dosage, safe storage away from pets or children, handlingand disposal was reviewed. The pharmacy's contact information and operating hours on-call services were given to the patient verbally as well as in writing. The medication will be mailed out for a $64.44 copay. Clinic follow-up needed: no Allergies and Drug intolerance: Allergies Allergen Reactions ??? Contrast [Iodine And Iodide Containing Products] Nausea And Vomiting and Other (See Comments) Neck swelling ??? Lisinopril Other (See Comments) Caused a dry cough ??? Lactose Diarrhea Problem List: Patient Active Problem List Diagnosis Code ??? UC (ulcerative colitis) K51.90 ??? HTN (hypertension) I10 ??? Hypothyroidism E03.9 ??? History of diverticulitis Z87.19 ??? Malignant neoplasm of upper-outer quadrant of right breast in female, estrogen receptor [id number], Z17.1 Special Dietary or Hydration Requirements: no There is no height or weight on file to calculate BMI. Medication reconciliation discrepancies (compared to [facility] med list): no Medication Adherence Adherence tools used: calendar Medication List: Current Outpatient Medications Medication Sig Note Dispense Refill ??? CAPEcitabine (Xeloda) 500 mg tablet Take 4 tablets (2,000 mg) by mouth 2 times daily for 14 days. Then take 7 days off for a 21 day cycle. Take within 30 minutes after eating. Call clinic before/prior to starting medication/script. Indications: metastatic breast carcinoma, ICD10 = C50.911 112 tablet 5 ??? glucagon (Baqsimi) 3 mg/actuation [place], Non-Aerosol 3 mg by Nasal route as needed (administer dose into one nostril, may repeat in 15 minutes if no response while awaiting Emergency assistance). 2each 1 ??? Blood-Glucose Meter,Continuous Misc by NOT APPLICABLE route. ??? glucagon, Human Recombinant, 1 mg Recon Soln Inject subcutaneously. ??? Blood-Glucose Sensor Device by NOT APPLICABLE route. ??? Lantus Solostar U-100 Insulin pen Inject 18 Units subcutaneously every morning. (Patient taking differently: Inject 18 Units subcutaneously every morning. 18 units) 15 mL 3 ??? sulfaSALAzine (Azulfidine) 500 mg Tablet Take 4 tablets by mouth 2 times daily. 720 tablet 3 ??? Dexcom G6 Sensor Device 1 each by Misc.(Non-Drug; Combo Route) route continuous. To be changed every 10 days. 9 Device 3 ??? Dexcom G6 Transmitter Device 1 each by Misc.(Non-Drug; Combo Route) route continuous. Change every 90 days. 1 Device 3 ??? BD Ultra-Fine Short Pen Needle 31 gauge x 5/16 Needle Inject 1 each subcutaneously 4 times daily. ICD 10 Code: E10.9 400 each 3 ??? OneTouch Verio test strips Strip Check blood glucose up to 6 times daily as needed as backup forDexcom 100 each 3 ??? humaLOG KwikPen 100 unit/mL Insulin Pen Inject 1-6 Units subcutaneously 3 times daily (before meals). ICD 10 Code: E10.9 06/11/2021: 1-6 units tid 15 mL 3 ??? loratadine (Claritin) 10 mg Tablet Take 10 mg by mouth daily. ??? senna (Senokot) 8.6 mg Tablet Take by mouth daily. ??? polyethylene glycol 3350 (MIRALAX ORAL) Take by mouth. ??? LORazepam (Ativan) 0.5 mg Tablet Take 1 tablet by mouth every 6 hours as needed for Anxiety. Mayalso take one by mouth every 6 hours as needed for nausea. (Patient not taking: Reported on 07/03/2021) 30 tablet 0 ??? prochlorperazine (Compazine) 10 mg Tablet Take 1 tablet by mouth every 6 hours as needed for Nausea. 30 tablet 1 ??? ascorbic acid, vitamin C, (VITAMIN C) 500 mg Tablet, Chewable Take 500 mg by mouth daily. ??? vit A/vit C/vit E/zinc/copper (ICAPS AREDS ORAL) Take 1 caplet by mouth daily. ??? metFORMIN (Glucophage) 500 mg Tablet Take 2 tablets by mouth 2 times daily (with meals). (Patient taking differently: Take by mouth 2 times daily (with meals). bid) 06/11/2021: bid 360 tablet 3 ??? levothyroxine (SYNTHROID) 175 mcg Tablet Take 1 tablet by mouth daily. 90 tablet 3 ??? Dexcom G6 Salvage Laborer Misc 1 each by Misc.(Non-Drug; Combo Route) route continuous. Use to continuously monitor blood glucose. 1 each 0 ??? estradioL (ESTRACE) 0.01 % (0.1 mg/gram) Cream three times a week. ??? nystatin (MYCOSTATIN) Cream ??? atorvastatin (LIPITOR) 40 mg Tablet Take 1 tablet by mouth daily. 90 tablet 3 ??? ONE TOUCH DELICA 33 gauge Misc 1 each by Misc.(Non-Drug; Combo Route) route 6 times daily. 600 each 3 ??? glucagon, Human Recombinant, (GLUCAGON EMERGENCY KIT, HUMAN,) 1 mg Recon Soln Inject 1 mL into the muscle as needed (severe hypoglycemia with unconsciousness). (Patient not taking: Reported on 03/27/2021) 3 each 3 ??? losartan (COZAAR) 50 mg Tablet Take 25 mg by mouth daily. 06/11/2021: 25 mg 3 ??? Chromium Picolinate 200 mcg Tablet Take 200 mcg by mouth daily. ??? multivitamin (THERAGRAN) Tablet Take 1 tablet by mouth daily. ??? Calcium Carbonate-Vitamin D3 600 mg(1,500mg) -400 unit Capsule Take by mouth daily. 04/03/2020: 2 capsules daily ??? atenolol (TENORMIN) 25 mg tablet 01/18/2019: Daily No current facility-administered medications for this visit. Most Recent Vitals: Ht Readings from Last 1 Encounters: 07/03/21 171 cm (5' 7.32) Wt Readings from Last 3 Encounters: 07/03/21 61.2 kg (135 lb) 06/11/21 61.9 kg (136 lb 6.4 oz) 05/23/21 63.5 kg (140 lb) Temp Readings from Last 3 Encounters: 07/03/21 36.4 ??C (97.5 ??F) (Temporal) 06/11/21 36.1 ??C (97 ??F) 05/23/21 36.1 ??C (97 ??F) (Temporal) BP Readings from Last 3 Encounters: 07/03/21 126/74 06/11/21 116/64 05/23/21 116/65 Pulse Readings from Last 3 Encounters: 07/03/21 67 06/11/21 81 05/23/21 68 Pertinent Lab values: Lab Results Component Value Date NA 141 01/16/2021 K 3.6 01/16/2021 CL 104 01/16/2021 CO2 28 01/16/2021 BUN 11 01/16/2021 CREATININE 0.7 01/16/2021 GLUCOSE 138 01/18/2019 GLUCFASTING 91 09/11/2013 CALCIUM 8.7 01/16/2021 Lab Results Component Value Date ALT 27 01/16/2021 AST 17 01/16/2021 ALKPHOS 60 01/16/2021 BILITOT 0.4 01/16/2021 BILIDIR 0.1 09/11/2013 ALBUMIN 3.8 01/16/2021 PROT 6.7 01/16/2021 Lab Results Component Value Date WBC 4.51 01/16/2021 HGB 12.1 01/16/2021 HCT 37.8 01/16/2021 MCV 88.0 09/11/2013 PLATELET 169 01/16/2021 Lab Results Component Value Date HA1C 5.3 08/22/2019 Immunization History Administered Date(s) Administered ??? Influenza PF, Split 09/11/2013, 10/14/2015 ??? Influenza Vaccine PF, Quadrivalent 10/15/2017, 10/03/2018, 08/22/2019 ??? Influenza Vaccine w/Preservative, Split 09/19/2014, 10/05/2016 ??? Influenza Vaccine, Whole 10/25/2006, 10/03/2007 Assessment and Recommendations: Title Drug Treatment Outcomes No data found in the last 10 encounters. Reviewed in detail with patient: Dose appropriateness based on recommended standard dosing Current medication list including OTC medications Medication and disease problems Allergies Comorbid conditions/ Problem List Past adverse events if any Special needs of the patient including physical and cognitive limitations Goals of therapy and management strategies Warnings, precautions, and contraindications Side effects Drug-drug and drug-food interactions Administration instructions including dose, frequency and method Handling, storage, and disposal Verifying expiration dates on products before use Rotating medication inventory to use oldest product first Relevant lab data Treatments impact on disease Dose appropriateness based on recommended standard dosing schedule, including any variations from FDA approved dosing Patient verbalizes understanding and is able to read-back instructions on self-administration/injection, proper storage, drug stability, importance of adherence and management strategies, side effect avoidance and mitigation strategies, and interruptions in therapy: Yes Relevant monitoring results reviewed for bone marrow suppression, opportunistic infection, tumor lysis syndrome, metabolic disturbance and end organ dysfunction yes - . Physical and Cognitive Assessment: Functional limitations identified: no Cognitive limitations identified: no Concern regarding orientation/memory: no Concern with reasoning/judgement: no Is patient a fall risk: no Other needed information: no Social Assessment: Does the patient have a primary healthcare market consultant? no Does the patient have an emergency contact on file: Yes Does patient need referral to social work lecturer: No Does patient need referral to advocacy group: No Home Health Assessment: Is the patient in a safe home environment? Yes Is the patient able to store their medication as directed? Yes Does the patient have a support network at home? Yes Reviewed potential home safety hazards with patient: Yes Economic Assessment: Patient is agreeable to medication copay: yes Copay Amount: $64.44 Day Supply: 21 Date Needed: 07/28/21 Copay assistance required: no Therapy Assessment: Current Medication Dosing/Route/Frequency: Capecitabine 2000mg PO BID x 14 day s on and 7 days off Appropriate Therapy: Yes Effective: yes - to be determined with labs and scans at upcoming office visit Patient-Reported Side Effects: no Patient assessed for pertinent side effects such as arthralgia, neuropathy, vision changes, cough, rash, hand/foot syndrome, hot flashes, nausea, and diarrhea or constipation. Adjunct medication needed? no Is the patient experiencing pain? no Patient Goals: Hematology/Oncology related goals may include remission, palliative or hospice care, a bridge to future surgery, transplant, and radiation or infusion therapy. Goals ??? Home Medication Compliance and Understanding Prevent / slow progression of disease as assessed by labs and scans in clinic every 3 months or more often when indicated Is the patient on track to achieve goals of therapy? yes Care Plan and Interventions: Care Plan Reviewed and Approved by both Pharmacist and Patient: Yes Did Care Plan Change? Yes dose increased due to normal DPD testing Interventions (if applicable): No Patient experienced change in condition that affects treatment: no Additional care/services needed: no Educational information or adherence tools provided: Yes Additional equipment/supplies required: no Pharmacist follow-up needed: Yes Patient Satisfaction with Care/Services Provided: Yes Informed patient of specialty pharmacy services: Yes -Patient received welcome and rights packet: Yes Date Received: 07/15/21 mailed -Patient is aware a licensed pharmacist is available 24 hours a day, 7 days a week to discuss medication-related questions or concerns: Yes -Patient verbalizes understanding of education on the common side effect profile of the medication: Yes -The patient is able to call 911 or seek urgent care if signs/symptoms of allergy or harmful adversereactions occur: Yes Patient Satisfaction with Therapy: yes - pt is tolerating therapy well with few side effects Patient understands any changes to current drug regimen were made at the appointment and that [facility] (summary located at top of note) for provider review and follow up. Kayla Jorge RPH 07/25/21 5:20 PM documented in this encounter Plan of Treatment Upcoming Encounters Date Type Specialty Care Team Description 10/15/2022 Office Visit Hematology and Oncology Aldo Gaming MD [facility] [place] [address] (Wo rk) documented as of this encounter [...] on filedocumented in this encounter Care Teams Acid Polymerization Operator Relationship Specialty Start Date End Date None PCP - General 06/11/21 04/02/22 None documented as of this encounter
--- OUTSIDE RECORDS SUMMARY | 2022-09-09 09:38 | XMS_ITS | Encounter Summary ---
:1955 Author Organization [facility] [address] Care Team Providers Name Role Phone Bang Heath MD Primary Care Provider Encounter Details Date Type Department Care Team Description 05/14/2021 Notes Only Care Management [place] [phone] Social History Tobacco Use Types Packs/Day [...] encounter Progress Notes Janina Batres MSW - 05/14/2021 5:19 PM EDT CCM/SW submitted pt's medical biller coder and medication receipts to [facility] for reimbursement. P- CCM will continue to provide support and resources to pt. documented in this encounter Plan of Treatment Upcoming Encounters Date Type Specialty Care Team Description 10/15/2022 Office Visit Hematology and Oncology Aldo Gaming MD [facility] [place] [address] (Wo rk) documented as of this encounter Visit Diagnoses Not on filedocumented in this encounter Care Teams Cartridge Feeder Relationship Specialty Start Date End Date Bang Heath MD PCP - General General Internal Medicine 01/18/19 [address] [place] [address] documented as of this encounter
--- OUTSIDE RECORDS SUMMARY | 2022-09-09 09:38 | XMS_ITS | Encounter Summary ---
:1955 Author Organization [facility] [place] [address] Care Team Providers Name Role Phone None Primary Care Provider Unavailable Reason for Visit Physical Therapy (Routine) - Closed Specialty Diagnoses / Procedures Referred By Contact Refer red To Contact Physical Therapy Diagnoses Breast cancer Demetra Fernadnez MD [facility] Pt Rehab [facility] D R [facility] [place] [address] [place] [address] Fax: Referral ID Status Reason Start Date Expiration Date Visits Requ ested Visits Authorized [id number] Closed 05/14/2021 05/14/2022 100 100 Encounter Details Date Type Department Care Team Description 06/11/2021 Office Visit Physical Therapy at [facility], PT S/P bilateral mastectomy; [facility] Decreased ROM of right shoul sanjuana; [facility] Decreased ROM of left shoulder; [facility] PHYSICAL MEDICINE & Weakness of right upper extr [place], [place] [facility] Weakness of left upper extremity [phone] [place] [address] Social History Tobacco Use Types Packs/Day Years [...] documented as of this encounter Miscellaneous Notes Initial Evaluation - Lois Lyon, PT - 06/11/2021 2:00 PM EDT Images from the original note were not included. PHYSICAL THERAPY EVALUATION Date of Exam/First treatment: 06/11/21 Date of Onset : OR 05/23/21 Referring Provider: Demetra Fernandez MD Primary Insurance: Payor: MEDICARE / Plan: MEDICARE PART A & B / Product Type: *No Product type*/ Diagnosis and pertinent co-morbidities: breast cancer s/p mastectomy, no reconstruction Medicare Cert Period: 06/11/2021 - 09/11/21 total treatment time: 45 minutes total timed code treatment: 45 minutes eval CURRENT HISTORY: Tatyana Skelton is a 66 y.o. female s/p bilateral mastectomy 05/23/21 for triple - ve right breast cancer. 0/2 nodes positive. No complications. Drains out 05/30/21 and 06/09/21. Left humeral fracture ~ 10 years Patient Active Problem List Diagnosis Date Noted ??? Malignant neoplasm of upper-outer quadrant of right breast in female, estrogen receptor [id number]/05/2021 ??? History of diverticulitis 09/17/2014 ??? UC (ulcerative colitis) 09/11/2013 ??? HTN (hypertension) ??? Hypothyroidism Adjuvant Treatment pending: Neoadjuvant Chemotherapy ,? no Radiation, ? Hormonal, Social: , Pt. lives in [place], [place]. 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 Function/exercise history: Walking distance/frequency: 3x/week at least 1 hr. Hike 1x/week (5 hrs) Other exercise; Kayaking, cross country skiing, snow shoeing Hobbies: sewing, water colors, crafts, knitting/crochetting. Pain: 1.5/10, not having to use tylenol or motrin FUNCTIONAL LIMITATIONS: On a difficulty scale with 0 being unable to perform an activity, and 10 being able to perform at a pre injury level she rates 5-6/10. Difficulty reaching above shoulder level. CLINICAL FINDINGS: Posture: Rounded shoulders, sl kyphotic Active Range of motion: supine Right 06/11/21 Left 06/12/21 Sh flexion 125 135 Sh abduction 75 80 Sh ER 65 55 Sh IR T7 T7 Strength: N/T Palpation/inspection: some bruising still anterior right chest. Appropriate level of healing. Blister right anterior chest from where pt says she put a hot pack (had necklace on heated up as well) Flexibility: decreased at: pectoralis CLINICAL EVALUATION AND DIAGNOSIS: 66 yo female s/p bilateral mastectomy, no reconstruction for right breast surgery. Pt with pain and decreased ROM shoulders limiting function. Pt would benefit from skilled PT to improve mobility and strength. Follow up in 2 weeks to advance HEP, manual therapy, scar massage. Clinical presentation: Stable Evolving Unstable x Notes: Today: Eval Pt education re role of PT, lymphedema risk (low) Instruction in post op exercise progression (see below). Pt demonstrated well. Instruction in scar massage. Instruction in Box breathing Pt would like to go to PT closer to home. Provided with some local options to try Clinical decision making of moderate complexity using standardized patient assessment instrument andmeasurable assessment of functional outcome. The patient's rehabilitation potential is good. GOALS: Therapy Short Term Goals: 3 weeks 1. Increase ROM to enable reaching overhead 2. Ind and consistent with HEP Therapy Half-Way Goals: 6 weeks 1. Full functional use of UE without discomfort 2. Begin gentle strengthening exercises for left and right U/Es INITIAL TREATMENT INCLUDED: Plan: FU closer to home. Pt to call here and let us know where to fax notes Treatment: There ex, manual therapy Frequency and Duration: likely 4-5 visits to monitor and progress HEP, soft tissue techniques. The plan has been discussed with the patient and she has agreed with it. LOIS LYON, PT documented in this encounter Plan of Treatment Upcoming Encounters Date Type Specialty Care Team Description 10/15/2022 Office Visit Hematology and Oncology Aldo Gaming MD [facility] HEMATOLOGY/[facility] [place] DEPT. [place], [place] [address] (Wo rk) documented as of this encounter Visit Diagnoses Diagnosis S/P bilateral mastectomy Acquired absence of breast and nipple Decreased ROM of right shoulder Decreased ROM of left shoulder Weakness of right upper extremity Other musculoskeletal symptoms referable to limbs Weakness of left upper extremity Other musculoskeletal symptoms referable to limbs documented in this encounter Care Teams Sap Technical Architect Relationship Specialty Start Date End Date None PCP - General 06/11/21 04/02/22 None documented as of this encounter
--- OUTSIDE RECORDS SUMMARY | 2022-09-09 09:38 | XMS_ITS | Encounter Summary ---
:1955 Author Organization [facility] [place] [address] Care Team Providers Name Role Phone None Primary Care Provider Unavailable Reason for Visit Reason Onset Date Comments New Medication Request 07/07/2021 New script for ca pecitabine Encounter Details Date Type Department Care Team Description 07/07/2021 Telephone Hematology Oncology at [facility], New Medication Request [facility] RN (New script for [facility]) [place] [phone] Social History Tobacco Use Types Packs/Day Years [...] Telephone Encounter - [facility], RN - 07/07/2021 8:45 AM EDT Tatyana is awaiting receiving the medication. She will call us when she receives the medication. Plan for office visit with CBC and CMP on her week off. documented in this encounter Plan of Treatment Upcoming Encounters Date Type Specialty Care Team Description 10/15/2022 Office Visit Hematology and Oncology Aldo Gaming MD [facility] HEM[facility]OLOGY/[facility] DEPT. [place], [place] [address] (Wo rk) documented as of this encounter Visit Diagnoses Not on filedocumented in this encounter Care Teams Furniture Assembly Supervisor Relationship Specialty Start Date End Date None PCP - General 06/11/21 04/02/22 None documented as of this encounter
--- OUTSIDE RECORDS SUMMARY | 2022-09-09 09:38 | XMS_ITS | Encounter Summary ---
:1955 Author Organization [facility] [place] [address] Care Team Providers Name Role Phone Bang Heath MD Primary Care Provider Encounter Details Date Type Department Care Team Description 05/20/2021 Telephone Endocrinology at [facility] Herbert Schulte, [place] [address] Social History Tobacco Use Types Packs/Day [...] encounter Miscellaneous Notes Telephone Encounter - Bel Gonzalez, RD - 05/26/2021 4:42 PM EDT Routed another note to provider and community youth secretary noting that visit is needed for patient to have CGM prescribed. Discussed patient has been paying $$$ out of pocket at pharmacy and found she can get through [employer] for a much more affordable escobar. Made provider aware of what documentation is requested from [facility]. Bel Gonzalez RD Telephone Encounter - Bel Gonzalez RD - 05/26/2021 4:42 PM EDT ----- Message from Herbert Elias RN sent at 05/16/2021 4:03 PM EDT ----- Franklyn Staples, I saw your note in the chart about this patient. Looks like Tatyana's most recent note does not explicitly say patient is injecting 3 times daily. She just notes that patient injects Lantus daily and Humalog with a correction factor and carb counting. Not sure what we can really do here. Thank you! ----- Message ----- From: Deonte, Production Sorter Sent: 05/16/2021 3:45 PM EDT To: [facility] Endocrinology Nurse Telephone Encounter - Herbert Elias RN - 05/20/2021 3:28 PM EDT Per Alonso, any addendum from a provider at our office to indicate patient is injecting insulin 4times daily will be acceptable. It does not have to be done by Dr Callahan. Telephone Encounter - Herbert Elias RN - 05/20/2021 9:59 AM EDT Elaine moralez [facility] is requesting the office notes be updated to reflect exact number of injections patient is doing per day (4). documented in this encounter Plan of Treatment Upcoming Encounters Date Type Specialty Care Team Description 10/15/2022 Office Visit Hematology and Oncology Amberly, Aldo, MD [facility] HEMATOLOGY/[facility] DEPT. [place], [place] [address] (Wo rk) documented as of this encounter Visit Diagnoses Not on filedocumented in this encounter Care Teams Trim Sawyer Relationship Specialty Start Date End Date Bang Heath MD PCP - General General Internal Medicine 01/18/19 [address] [place] [address] documented as of this encounter
--- OUTSIDE RECORDS SUMMARY | 2022-09-09 09:38 | XMS_ITS | Encounter Summary ---
:1955 Author Organization [facility] [place] [address] Care Team Providers Name Role Phone Bang Heath MD Primary Care Provider Encounter Details Date Type Department Care Team Description 04/30/2021 Patient Outreach Hematology and Oncology Rosalie Pina, [place] [address] Social History Tobacco Use Types Packs/Day [...] documented as of this encounter Progress Notes Thelma Pina, RN - 04/30/2021 1:16 PM EDT Comprehensive Breast Program Note Tatyana Skelton is a 66 y.o. female with right breast cancer s/p neoadjuvant chemotherapy with completion of same on 04/24/[address] Gaming in [facility]. I met with the patient and her , Deep, before and after her surgical oncology consultation. She states she is feeling well and tolerated chemotherapy very well; continued to hike and exercise during treatment. Sangeeta is interested in b/l mastectomy without reconstruction and plans for same. She understands surgery will be scheduled with Dr. Fernandez about one month after end of chemotherapy (i.e. approximately late April). SPECIFIC TEACHIN. Breast Cancer Treatment Handbook (Brittany Flores, 2017) was sent via mail. 2. Information from our Shared Decision-Marking Program on Early-Stage Breast Cancer previously provided and viewed. 3. She understands she will meet with her medical oncologist (Dr. Gaming in [facility]) again after surgery. 4. Contact phone number for questions or concerns in the immediate post- operative period. 5. Comprehensive Breast Program Binder provided. 6. Post Breast Surgery Exercises handout created by physical therapists at [facility] to begin. She understands she may begin the first two exercises gently after mastectomy and will meet with a physical therapist post-operatively who will customize her ROM routine. 7. Breast Cancer Treatment Process care map provided and reviewed. 8. Things to Consider...What I Wish I Knew advice from breast cancer patients handout provided. 9. Contact information for the General Surgery Clinic Nurses was given and the Doctor concrete mixing truck driver systemexplained. Twenty-five minutes was spent in education and providing support. She verbalized understanding of the plan of care and states all her questions were answered. Sangeeta has our contact information. She will schedule surgery on way out (in 4L) today. Pre-op MRI: No Referral to familial counseling: No Pre- Operative Breast Surgery Instructions Tatyana Skelton received pre operative teaching on drain care in 3K clinic today to enhance post-operative self care. A Morgan Bill drain model was used to teach drain care along with the milking/ stripping techniques. Written information was reviewed with and given to Sangeeta along with a tally sheet tokeep track of amounts, a marsupial pouch, and a measuring cup. A Visiting Nurse referral was offered to Tatyana. Visiting Nurse referral offered and declined at this time. Should she change her mind she will contact this senior technical writer. Contact information for the General Surgery Clinic Nurses was given and the Doctor concrete mixing truck driver system explained. She is not interested in meeting with a mastectomy fitter post operatively. documented in this encounter Plan of Treatment Upcoming Encounters Date Type Specialty Care Team Description 10/15/2022 Office Visit Hematology and Oncology Aldo Gaming MD [facility] ER HEMATOLOGY/[facility] DEPT. [place], [place] [address] (Wo rk) documented as of this encounter Visit Diagnoses Not on filedocumented in this encounter Care Teams Repack Room Worker Relationship Specialty Start Date End Date Bang Heath MD PCP - General General Internal Medicine 01/18/19 [address] [place] [address] documented as of this encounter
--- OUTSIDE RECORDS SUMMARY | 2022-09-09 09:38 | XMS_ITS | Encounter Summary ---
:1955 Author Organization [facility] Address [place] [id number] Care Team Providers Name Role Phone Bang Heath MD Primary Care Provider Reason for Referral Diagnostic Test (Routine) - Closed Specialty Diagnoses / Procedures Referred By Contact Refer red To Contact Radiology Diagnoses Malignant neoplasm of upper-outer quadrant of right breast in female, estrogen receptor negative Demetra Fernandez MD [facility] Rad Nuclear Med Procedures NM [place] Node Injection Breast wo [place] [address] [place] [address] Referral ID Status Reason Start Date Expiration Date Visits V isits Requested Authorized [id number] Closed Specialty 04/30/2021 10/30/2022 1 1 Service Requested Reason for Visit Diagnostic Test (Routine) - Closed Specialty Diagnoses / Procedures Referred By Contact Refer red To Contact Radiology Diagnoses Malignant neoplasm of upper-outer quadrant of right breast in female, estrogen receptor negative Demetra Fernandez MD [facility] Rad Nuclear Med Procedures NM [place] Node Injection Breast wo [place] [address] [place] [address] Referral ID Status Reason Start Date Expiration Date Visits V isits Requested Authorized [id number] Closed Specialty 04/30/2021 10/30/2022 1 1 Service Requested Encounter Details Date Type Department Care Team Description 05/23/2021 Hospital Encounter Nuclear Medicine at [facility] [place] Malignant neoplasm Kya Pan MD of [facility] quadrant of right [facility] CENTER breast in female, [place], [place] GENERAL SURGERY estrogen receptor [phone] [place], [place] negative [phone] Social History Tobacco Use Types Packs/Day Years [...] PM EST documented as of this encounter Medications at Time of Discharge Medication Sig Dispensed Refills Start Date End Date Blood-Glucose by NOT APPLICABLE 0 03/05/2021 Meter,Continuous Misc route. Blood-Glucose Sensor by NOT APPLICABLE 0 03/05/20 21 Device route. 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 LORazepam (Ativan) 0.5 Take 1 tablet by 30 tablet 0 021 mg TabletIndications: mouth every 6 hours Malignant neoplasm of as needed for upper-outer quadrant of Anxiety. May also right breast in female, take one by mouth estrogen receptor every 6 hours as negative needed for nausea. ascorbic acid, vitamin Take 500 mg by mouth 0 C, (VITAMIN C) 500 mg daily. Tablet, Chewable vit A/vit C/vit Take 2 caplet by 0 E/zinc/copper (ICAPS mouth daily. AREDS ORAL) estradioL (ESTRACE) three times a week. 0 020 0.01 % (0.1 mg/gram) Cream nystatin (MYCOSTATIN) 0 02/17/2020 Cream atorvastatin (LIPITOR) Take 1 tablet by 90 tablet 3 019 40 mg Tablet mouth daily. ONE TOUCH DELICA 33 1 each by 600 each 3 01/18/2019 gauge Misc Misc.(Non-Drug; Combo Route) route 6 times daily. losartan (COZAAR) 50 mg Take 25 mg by mouth 3 Tablet daily. Chromium Picolinate 200 Take 200 mcg by mouth 0 mcg Tablet daily. multivitamin Take 1 tablet by 0 (THERAGRAN) Tablet mouth daily. Calcium Take by mouth daily. 0 Carbonate-Vitamin D3 600 mg(1,500mg) -400 unit Capsule atenolol (TENORMIN) 25 0 03/07/2010 mg tablet Vit A,C,D-Wisl-Einfqk Take 1 tablet by 0 03/06/20 21 07/03/[phone],[phone] mouth. ghrf-vh-edyr Capsule Lantus Solostar U-100 Inject 18 Units 15 mL 3 1 03/19/2022 Insulin pen subcutaneously every morning. sulfaSALAzine Take 4 tablets by 720 tablet 3 04/18/202102/28 (Azulfidine) 500 mg mouth 2 times daily. Tablet BD Ultra-Fine Short Pen Inject 1 each 400 each 3 1 04/06/2022 Needle 31 gauge x 5/16 subcutaneously 4 Needle times daily. ICD 10 Code: E10.9 OneTouch Verio test Check blood glucose 100 each 3 021 09/29/2021 strips Strip up to 6 times daily as needed as backup for Dexcom humaLOG KwikPen 100 Inject 1-6 Units 15 mL 3 02/17/2021 03/19/2022 unit/mL Insulin Pen subcutaneously 3 times daily (before meals). ICD 10 Code: E10.9 loratadine (Claritin) Take 10 mg by mouth 0 03/12/2022 10 mg Tablet daily. senna (Senokot) 8.6 mg Take by mouth daily. 0 03/12/2022 Tablet polyethylene glycol Take by mouth. 0 0 03/12/2022 3350 (MIRALAX ORAL) prochlorperazine Take 1 tablet by 30 tablet 1 01/16/2021 (Compazine) 10 mg mouth every 6 hours TabletIndications: as needed for Nausea. Malignant neoplasm of upper-outer quadrant of right breast in female, estrogen receptor negative metFORMIN (Glucophage) Take 2 tablets by 360 tablet 3 202012/09/2021 500 mg mouth 2 times daily TabletIndications: Type (with meals). 1 diabetes mellitus without complication levothyroxine Take 1 tablet by 90 tablet 3 08/20/202008/11 (SYNTHROID) 175 mcg mouth daily. TabletIndications: Acquired hypothyroidism documented as of this encounter Plan of Treatment Upcoming Encounters Date Type Specialty Care Team Description 10/15/2022 Office Visit Hematology and Oncology Aldo Gaming MD [facility] HEMATOLOGY/[facility] DEPT. [place], [place] [address] (Wo rk) documented as of this encounter Procedures Procedure Name Priority Date/Time Associated Diagnosis Comme nts POCT GLUCOSE Routine 05/23/2021 12:45 PM Results for this EDT procedure are i n the results section. POCT GLUCOSE Routine 05/23/2021 9:58 AM Results f or this EDT procedure are i n the results section. NM SENTINEL NODE Routine 05/23/2021 7:08 AM Malignant neoplasm Results for this INJECTION BREAST EDT of upper-outer procedure are in WITHOUT IMAGING quadrant of right the res ults breast in female, section. estrogen receptor negative documented in this encounter Results POCT Glucose (05/23/2021 12:45 PM EDT) P athologist Signature POC Glucose 181 65 - 199 [facility] mg/dL [facility] Comment: Supplemental ranges: <140 mg/dL before meals <180 mg/dL all other times of the day Specimen Anatomical Collection Method Collection Time Receive d Time (Source) Location / / Volume Laterality Blood 05/23/2021 12:45 05/23/2021 PM EDT 12:45 PM EDT Demetra Fernandez MD POINT OF CARE TEST ORDERABLE S Performing Organization Address City/State/ZIP Code Phon e Number [address] POCT Glucose (05/23/2021 9:58 AM EDT) P athologist Signature POC Glucose 181 65 - 199 [facility] mg/dL [facility] Comment: Supplemental ranges: <140 mg/dL before meals <180 mg/dL all other times of the day Specimen Anatomical Collection Method Collection Time Receive d Time (Source) Location / / Volume Laterality Blood 05/23/2021 9:58 AM 9:58 EDT AM EDT Demetra Fernandez MD POINT OF CARE TEST ORDERABLE S Performing Organization Address City/State/[place] [address] [place] Node Injection Breast wo Imaging (05/23/2021 7:08 AM EDT) Anatomical Region Laterality Modality Nuclear Medicine Specimen (Source) Anatomical Location Collection Method / Collectio n Time Received Time / Laterality Volume Impressions 05/23/2021 8:33 AM EDT [place] node injections performed without complication. Thank you for letting us participate in the care of this patient. ??If you are a health care provider and have any questi ons regarding this report, please contact the number below. ??For patients who have questions please contact the health career services manager that requested your imaging first. ? Narrative 05/23/2021 8:33 AM EDT EXAMINATION: NM SENTINEL NODE INJECTION BREAST WO IMAGING CLINICAL HISTORY: PLEASE INJECT RIGHT BR EAST CANCER FOR LYMPHATIC MAPPING TECHNIQUE: Technetium-99m filtered sulfu r colloid was administered totaling 1.5 mCi in the right breast. COMPARISON: None FINDINGS: No imaging was performed. The patient left the department in good condition. Procedure Note Viry Moya MD - 2020 EXAMINATION: NM SENTINEL NODE INJECTION BREAST WO IMAGING CLINICAL HISTORY: PLEASE INJECT RIGHT BR EAST CANCER FOR LYMPHATIC MAPPING TECHNIQUE: Technetium-99m filtered sulfu r colloid was administered totaling 1.5 mCi in the right breast. COMPARISON: None FINDINGS: No imaging was performed. The patient left the department in good condition. IMPRESSION [place] node injections performed witho ut complication. Thank you for letting us participate in the care of this patient. If you are a health care provider and have any questi ons regarding this report, please contact the number below. For patients w ho have questions please contact the health career services manager that requested your imaging first. Electronically signed by: Viry Pike MD, [facility] ([phone]), at 05/23/2021 8:33 AM Demetra Fernandez MD IMG NM ORDERABLES documented in this encounter Visit Diagnoses Diagnosis Malignant neoplasm of upper-outer quadra nt of right breast in female, estrogen receptor negative documented in this encounter Administered Medications Inactive Administered Medications - up to 3 most recent administrations Medication Order MAR Action Action Date Dose Rate Site technetium (Tc-99m) sulfur Given 05/23/2021 7:08 AM EDT 1.5 mCi colloid injection 0-18 mCi 0-18 mCi, Intradermal, ONCE PRN, 1 dose, Starting on Wed05/23/21 at 0708, Until Wed05/23/21 at 0708, Per Protocol, Radiology Contrast, Routine documented in this encounter Care Teams Soda Room Operator Relationship Specialty Start Date End Date Bang Heath MD PCP - General General Internal Medicine 01/18/19 [address] [place] [address] documented as of this encounter
--- OUTSIDE RECORDS SUMMARY | 2022-09-09 09:38 | XMS_ITS | Encounter Summary ---
:1955 Author Organization [facility] [place] [address] Care Team Providers Name Role Phone None Primary Care Provider Unavailable Reason for Visit Reason Comments Prior Authorization Capecitabine 500mg tablets Encounter Details Date Type Department Care Team Description 07/04/2021 Specialty Pharmacy Pharmacy at [facility] Apple Marquez Prior Authorization [facility] E (Capecita bine 500mg Drive tablets) [place] [address] Social History Tobacco Use Types Packs/Day Years [...] documented as of this encounter Progress Notes Apple Marquez E - 07/04/2021 10:03 AM EDT [facility], No Prior Authorization Required Patient: Tatyana Skelton Patient : 1955 Patient Address: [address] [facility] [address] (home) Medication Name: CAPECITABINE 500 MG TABLET Medication ID: Patient Location: [facility] Patient Location Comment: Medication Strength Frequency Requested: Capecitabine 500mg. Take three 500mg tablets (1500mg) by mouth two times a day. Take within 30 minutes after eating. Call clinic before starting medication. Qty/Day Supply: New Start: New to Therapy Diagnosis & ICD-10 Code: Malignant neoplasm of right breast in female, estrogen receptor negative, unspecified site of breast C50.911, Z17.1 Subscriber Insurance: [employer] Subscriber Insurance Comment: Fax: Physician: NICOLE GAMING Physician Comment : PA Status: NO PA REQUIRED Insurance mandated Pharmacy: [facility] Fillable at [facility]: Yes Insurance requirements/notes: None Copay: $50.73 Copay assistance: Other (Enter Comment) Copay assistance comment: We would like to call Tatyana and determine if she has supplemental insurance, if not we can speak with her about other copay assistance options. Pharmacy staff will be reaching out to the patient to inform them of their medication's approval by their insurance. If applicable, a pharmacist will speak with the patient to offer our specialty pharmacy services and to arrange delivery of their medication. Apple Marquez 07/04/21 10:19 AM documented in this encounter Plan of Treatment Upcoming Encounters Date Type Specialty Care Team Description 10/15/2022 Office Visit Hematology and Oncology Nicole Gaming MD [facility] HEMATOLOGY/[place], [place] [address] ( rk) documented as of this encounter Visit Diagnoses Not on filedocumented in this encounter Care Teams Crusher Loader Equipment Operator Relationship Specialty Start Date End Date None PCP - General 06/11/21 04/02/22 None documented as of this encounter
--- OUTSIDE RECORDS SUMMARY | 2022-09-09 09:38 | XMS_ITS | Encounter Summary ---
:1955 Author Organization [facility] Address [address] [place] [address] Care Team Providers Name Role Phone None Primary Care Provider Unavailable Reason for Visit Reason Onset Date Comments Medication Refill 08/01/2021 Refill capecitabine with changes Encounter Details Date Type Department Care Team Description 08/01/2021 Telephone Hematology Oncology at [facility], Medication Refill [facility] (Refill capecitabine [address] with changes) [place] [id number] Social History Tobacco Use Types Packs/Day Years [...] Telephone Encounter - Xiomara Art, RN - 08/01/2021 8:30 AM EDT Oral Chemotherapy Check Note 08/01/2021 Tatyana Skelton, 1955 Prescriptions for oral chemotherapy were reviewed as follows: Oral Chemotherapy Order : Capecitabine 2000 mg oral 2 times daily Order details: ?? Dose: 2000 mg ?? Route: By mouth ?? Quantity to be dispensed #: 112 ?? Number of refills: 5 ?? Instructions: Begin by taking 3 tablets in the morning and 4 tablets in the evening to travel ot sideeffects. ?? Cycle number and length: ongoing ?? Start date: 08/01/21 Plan of care compared to information in the medical record, including note from provider on 07/31/21. The prescription was found To be complete and accurate. It was e-prescribed to [facility]. documented in this encounter Plan of Treatment Upcoming Encounters Date Type Specialty Care Team Description 10/15/2022 Office Visit Hematology and Oncology Aldo Gaming MD [facility] HEMATOLOGY/[facility] DEPT. [place], [place] [address] (Wo rk) documented as of this encounter Goals Goal Patient Goal Associated Recent Patient-Stated? Author Type Problems Progress DH Home Medication Patient No Ken ds, Compliance and Facing Kayla Lopez, Understanding Action Plan [facility] Note: Formatting of this note might be d ifferent from the original. Prevent / slow progression of disease as assessed by labs and scans in clinic every 3 months or more often when indicated documented as of this encounter Visit Diagnoses Not on filedocumented in this encounter Care Teams Senior Lead Project Manager Relationship Specialty Start Date End Date None PCP - General 06/11/21 04/02/22 None documented as of this encounter
--- OUTSIDE RECORDS SUMMARY | 2022-09-09 09:38 | XMS_ITS | Encounter Summary ---
:1955 Author Organization [facility] [place] [address] Care Team Providers Name Role Phone None Primary Care Provider Unavailable Encounter Details Date Type Department Care Team Description 07/24/2021 Orders Only Hematology and Aldo Gaming M D Malignant neoplasm of Oncology at [facility] upper-outer quadrant [facility] of right breast in [facility] HEMATOLOGY/ONCOL[place], [place] [address] Y DEPT. receptor negative [phone] [place], [place] [address] Social History Tobacco Use Types [...] and Oncology Aldo Gaming MD [facility] ER HEMATOLOGY/[facility] DEPT. [place], [place] [address] (Wo rk) documented as of this encounter Visit Diagnoses Diagnosis Malignant neoplasm of upper-outer quadra nt of right breast in female, estrogen receptor negative documented in this encounter Care Teams Supervisor Cloth Winding Relationship Specialty Start Date End Date None PCP - General 06/11/21 04/02/22 None documented as of this encounter
--- OUTSIDE RECORDS SUMMARY | 2022-09-09 09:38 | XMS_ITS | Encounter Summary ---
:1955 Author Organization [facility] [place] [address] Care Team Providers Name Role Phone None Primary Care Provider Unavailable Encounter Details Date Type Department Care Team Description 06/11/2021 Office Visit Endocrinology at [facility] Heather Sidhu (formerly [facility], BROCK autoimmune diabetes [facility] in adults), [place] [address] as type ENDOCRINOLOGY [place] [address] Social History Tobacco Use Types Packs/Day Years [...] Sign Reading Time Taken Comments Blood Pressure 116/64 06/11/2021 9:31 AM EDT Pulse 81 06/11/2021 9:31 AM EDT Temperature 36.1 ??C (97 ??F) 06/11/2021 9:31 AM EDT Respiratory Rate - - Oxygen Saturation 98% 06/11/2021 9:31 AM EDT Inhaled Oxygen Concentration - - Weight 61.9 kg (136 lb 6.4 oz) 06/11/2021 9:31 AM EDT Height 170.2 cm (5' 7) 06/11/2021 9:31 AM EDT Body Mass Index 21.36 06/11/2021 9:31 AM EDT documented in this encounter Patient Instructions Patient InstructionsHeather Conte APRN - 06/11/2021 9:45 AM EDT Plan: I will send you an invitation to share your Dexcom data remotely for follow up visits --Medications: You can tolerate a higher A1C to avoid low blood sugars Decrease Lantus to 16-18 units daily Change carb ratio to 1:20 so that you are administering less insulin with each carb for meals --Monitoring: with CGM check BGs fasting in am, before each meal, 1-2 hours after meals and at bedtime. Target fasting blood sugars 90-140 pre-meal during daytime 90-150 1-2 h post meal below 180 Target A1c <7% for this patient. --Patient will keep log of blood glucose and insulin used for review at next visit or bring CGM reader for download --Diet and exercise: controlled carb diet & exercise as tolerated to keep weight down. --Prevention: Due for shingrex and pneumonia series --F/U lab for: A1C, LDL, urine alb/creat through PCP prior to next appointment --RTC: Next visit in 6 months. documented in this encounter Progress Notes Heather Conte APRN - 06/11/2021 9:45 AM EDT Date of Visit: 06/11/2021 Reason for Visit: Follow-up diabetes Brief History: Tatyana Skelton is a 66 y.o. female with PMH significant for UC and DM type 1 (DINESH) and hypothyroidism. Diabetes in the past had been complicated by frequent hypoglycemia, but this has been better recently. She is now using a Dexcom CGM. Sought guidance from endocrinology team when she started chemotherapy for breast cancer. Completed chemotherapy, surgery 3 weeks ago, doing well overall, some fatigue, denies pain, wounds are healing well. She did burn her chest wall with a heating pad 10 days ago, some redness around area, she is monitoring, no fevers. She presents today for diabetes follow up management and to provide a review of [facility] care. She has been playing around with Lantus between 18-20 units, finding better control with 20 units. Plan from previous visit note: Sindy 03/12/2021 ASSESSMENT/PLAN: 1. DM type 1 - ?? Continue Lantus dose 18 units daily ?? Continue current carb ratio and correction factor ?? Continue metformin ?? 2. Hypothyroidism - continue LT4 175 mcg daily. ?? 3. Follow-up - 6 months with Nargis Hawley APRN. I informed Sangeeta that I will be leaving [facility] on May 04, so she will get transitioned to one of my colleagues for the visit after her next follow-upappt. Diabetes History: Most recent A1C: 03/05/2021 5.4% Tatyana Skelton diabetes diagnosed age 63. Current Diabetes Medications: Lantus 20 units in am CR 1:15 Metformin 1000mg BID Chromium Picolinate 200mcg Insulin administration site: abdomen Compliance with insulin: excellent Glucose Monitoring: Sensor: Dexcom G6 Number tests prescribed per day: FSBG 2 x a week Justification for testing > 3x a day to prevent severe hyperglycemia, widely fluctuating BS, overnight hypoglycemia Meter uploaded today: yes Hypoglycemia Awareness: lately Aware only when really low, relies on alarms now, - has occurred about once a week BG testing > than 5 if having hypoglycemia occurrances Frequency of episodes needing assistancenone Hyperglycemia: History of DKA: no Diabetes Complications Review: Eyes:No retinopathy, Kidneys: No history of microalbuminuria, proteinuria, decreased kidney function, CKD, dialysis or kidney transplant Feet:Normal shape, no history of foot ulcers, denies burning/numbness/tingling, no previous decreased sensation to monofilament testing, no prior amputations, Autonomic: No history of gastroparesis, problems emptying bladder, inability to detect hypoglycemia,or tachycardia Cardiac: No history of CAD, cardiac stents, cardiac bypass surgery,CHF, PVD, CVA Diabetes Prevention: Last eye exam: 2020 Regular breastfeeding peer counselor: no Special shoes: Dental visits regular: yes Flu vaccine: Pneumovax and Prevnar: due Kidney protection On YENNY-I or ARB: losartan Heart protection On low dose ASA: no On Statin:atorvastatin 40 mg Last urine protein measurement: Lab Results Component Value Date MICROALBUR <3.0 08/22/2019 Last Kidney function: Lab Results Component Value Date CREATININE 0.7 01/16/2021 Last lipid panel: Lipid Panel Lab Results Component Value Date LDLDIRECT 81 01/18/2019 Current Medications: Medications 06/11/21 1014 Medication Sig Taking? Blood-Glucose Meter,Continuous Misc by NOT APPLICABLE route. Yes Blood-Glucose Sensor Device by NOT APPLICABLE route. Yes Vit A,C,L-Fvzz-Vqrxch 14,320-226-200 [id number]-[id number] Capsule Take 1 tablet by mouth. Yes Lantus Solostar U-100 Insulin pen Inject 18 Units subcutaneously every morning. Yes sulfaSALAzine (Azulfidine) 500 mg Tablet Take 4 tablets by mouth 2 times daily. Yes Dexcom G6 Sensor Device 1 each by Misc.(Non-Drug; Combo Route) route continuous. To be changed every10 days. Yes Dexcom G6 Transmitter Device 1 each by Misc.(Non-Drug; Combo Route) route continuous. Change every 90 days. Yes BD Ultra-Fine Short Pen Needle 31 gauge x 5/16 Needle Inject 1 each subcutaneously 4 times daily. ICD 10 Code: E10.9 Yes OneTouch Verio test strips Strip Check blood glucose up to 6 times daily as needed as backup for Dexcom Yes humaLOG KwikPen 100 unit/mL Insulin Pen Inject 1-6 Units subcutaneously 3 times daily (before meals). ICD 10 Code: E10.9 Yes loratadine (Claritin) 10 mg Tablet Take 10 mg by mouth daily. Yes senna (Senokot) 8.6 mg Tablet Take by mouth daily. Yes polyethylene glycol 3350 (MIRALAX ORAL) Take by mouth. Yes LORazepam (Ativan) 0.5 mg Tablet Take 1 tablet by mouth every 6 hours as needed for Anxiety. May also take one by mouth every 6 hours as needed for nausea. Yes prochlorperazine (Compazine) 10 mg Tablet Take 1 tablet by mouth every 6 hours as needed for Nausea.Yes ascorbic acid, vitamin C, (VITAMIN C) 500 mg Tablet, Chewable Take 500 mg by mouth daily. Yes vit A/vit C/vit E/zinc/copper (ICAPS AREDS ORAL) Take 1 caplet by mouth daily. Yes metFORMIN (Glucophage) 500 mg Tablet Take 2 tablets by mouth 2 times daily (with meals). Patient taking differently: Take by mouth 2 times daily (with meals). bid Yes levothyroxine (SYNTHROID) 175 mcg Tablet Take 1 tablet by mouth daily. Yes Dexcom G6 [employer] Spr[employer] Supervisor Misc 1 each by Misc.(Non-Drug; Combo Route) route continuous. Use to continuouslymonitor blood glucose. Yes estradioL (ESTRACE) 0.01 % (0.1 mg/gram) Cream three times a week. Yes nystatin (MYCOSTATIN) Cream Yes atorvastatin (LIPITOR) 40 mg Tablet Take 1 tablet by mouth daily. Yes ONE TOUCH DELICA 33 gauge Misc 1 each by Misc.(Non-Drug; Combo Route) route 6 times daily. Yes losartan (COZAAR) 50 mg Tablet Take 25 mg by mouth daily. Yes Chromium Picolinate 200 mcg Tablet Take 200 mcg by mouth daily. Yes multivitamin (THERAGRAN) Tablet Take 1 tablet by mouth daily. Yes Calcium Carbonate-Vitamin D3 600 mg(1,500mg) -400 unit Capsule Take by mouth daily. Yes atenolol (TENORMIN) 25 mg tablet Yes glucagon (Baqsimi) 3 mg/actuation Warner, Non-Aerosol 3 mg by Nasal route as needed (administer dose into one nostril, may repeat in 15 minutes if no response while awaiting Emergency assistance). glucagon, Human Recombinant, 1 mg Recon Soln Inject subcutaneously. glucagon, Human Recombinant, (GLUCAGON EMERGENCY KIT, HUMAN,) 1 mg Recon Soln Inject 1 mL into the muscle as needed (severe hypoglycemia with unconsciousness). Patient not taking: Reported on 03/27/[address]? Carb counts kind of guestimates Special Diet 3 meals/day * Breakfast: 2 eggs and toast * Lunch Tuna sandwich or yoghurt, loves peanut butter * Dinner: Chicken gravy on potatoes with broccoli and cauliflower * Drinks: Water with flavor packs and ICE * snacks: Yes, nuts, chocoloate Exercises: Yes, walking 3 miles now- working back to her mountain hiking and goal to get back to kayaking REVIEW OF SYSTEMS: PI. Constitutional: weight loss, trying to gain, no fevers, chills, fatigue, denies sleep disturbances Endocrine: No increased thirst or urination, heat/cold intolerance Eyes: No recent vision changes - sometimes blurry, recent eye exam ENT: No dysphagia, dental issues -appetite is good Cardiovascular: No chest pain, palpitations Respiratory: No wheezing , shortness of breath GI: No nausea, vomiting, diarrhea, constipation : No frequent urinary tract infections, dysuria, hematuria Neurological: No weakness or numbness, dizziness Skin/Feet: No current diabetic foot ulcers/open area, no darkening of skin or skin changes Physical Exam: BP 116/64 Pulse 81 Temp 36.1 ??C (97 ??F) Ht 170.2 cm (5' 7) Wt 61.9 kg (136 lb 6.4 oz) SpO2 98% BMI 21.36 kg/m?? Appearance: pleasant, NAD, AAOx3, speaking in clear sentences HEENT: PERRL Respiratory: breathing non-labored on RA Abd: Soft, non-distended, non-tender x4 quadrants Skin: abdomen injection sites: mild bruising, healing scars from recent bilateral mastectomy, right chest wall with 3 cm area of erythema, no warmth or drainage (recent burn from hating pad) Feet: shape is normal, skin is normal with no open areas or redness, nails are not mycotic, distal cap refill wnl pulses in feet : dorsalis pedis-yes posterior tibial-yes Lower extremities: No peripheral edema Neuro: appreciation of 10 g of pressure is present, gait is normal, moving all extremities. Grossly non-focal Assessment: Patient is a 66 y.o. female with PMH significant for UC and DM type 1 (DINESH), and hypothyroidism. Diabetes is currently under excellent control, last check of A1C was 5.4% in February. Review of Dexcom CGM shows she is in target range 88% of the time, low 2% and very low 1% of time. With her hypoglycemiaunawareness she can tolerate a higher A1C and insulin dosing adjusted today to minimize any hypo events. She has a good understanding of diabetes and potential complications of poor blood glucose control. Review of AHA/ACC/ADA and Endocrine Society clinical [...] last check on her current statin therapy BP: at goal Patient is on Multiple Daily Injections: Diagnosis: Diabetes Mellitus type 1 (DINESH) on multiple daily insulin injections [...] their CGM regimen and diabetes treatment plan. Plan: I will send you an invitation to share your Dexcom data remotely for follow up visits --Medications: Decrease Lantus to 18 units daily Change carb ratio to 1:20 so that you are administering less insulin with each carb for meals --Monitoring: with CGM check BGs fasting in am, before each meal, 1-2 hours after meals and at bedtime. Target fasting blood sugars 90-140 pre-meal during daytime 90-150 1-2 h post meal below 180 Target A1c <7% for this patient. --Patient will keep log of blood glucose and insulin used for review at next visit or bring CGM reader for download --Diet and exercise: controlled carb diet & exercise as tolerated to keep weight down. --Prevention: Due for shingrex and pneumonia series --F/U lab for: A1C, LDL, urine alb/creat through PCP --RTC: Next visit in 6 months. (Quick draw lab before visit with us on the same day). 50 minutes were spent reviewing the medical record and available tests, performing a physical exam, counseling the patient on medications, recommending changes to insulin dosing, reviewing management of hypoglycemia, and in review of her CGM data, I have reviewed the plan outlined above with the patient and patient has verbalized understanding. 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
--- OUTSIDE RECORDS SUMMARY | 2022-09-09 09:38 | XMS_ITS | Encounter Summary ---
:1955 Author Organization [facility] [place] [address] Care Team Providers Name Role Phone Bang Heath MD Primary Care Provider Reason for Visit Reason Onset Date Comments Other 05/08/2021 [facility] resources Encounter Details Date Type Department Care Team Description 05/08/2021 Telephone Hematology/Oncology at Ricarda Pierce, Ot her ([facility] resources) [address] OFFICE OF CARE [place], [place] MANAGEMENT [address] Social History Tobacco Use [...] Miscellaneous Notes Telephone Encounter - Ricarda Pierce DIRECTOR FACILITIES MAINTENANCE - 05/08/2021 1:42 PM EDT Pt dropped off her information to make a referral to the [facility] for financial assistance. Messaged VICTOR HUGO Mcgrath re this. Ms. Batres will complete pt's application. Faxed pt information to Ms. Avila complete pt's application to the [facility]. documented in this encounter Plan of Treatment Upcoming Encounters Date Type Specialty Care Team Description 10/15/2022 Office Visit Hematology and Oncology Aldo Gaming MD [facility] HEMATOLOGY/[facility] DEPT. [place], [place] [address] (Wo rk) documented as of this encounter Visit Diagnoses Not on filedocumented in this encounter Care Teams Farmer [employer] Relationship Specialty Start Date End Date Bang Heath MD PCP - General General Internal Medicine 01/18/19 [address] [place] [address] documented as of this encounter
--- OUTSIDE RECORDS SUMMARY | 2022-09-09 09:38 | XMS_ITS | Encounter Summary ---
:1955 Author Organization [facility] [place] [address] Care Team Providers Name Role Phone Bang Heath MD Primary Care Provider Reason for Referral Diagnostic Test (Routine) - Closed Specialty Diagnoses / Procedures Referred By Contact Refer red To Contact Radiology Diagnoses Malignant neoplasm of upper-outer quadrant of right breast in female, estrogen receptor negative Demetra Fernandez MD [facility] Rad Nuclear Med Procedures NM [place] Node Injection Breast wo Imaging [facility] [place] [address] [place] [address] Referral ID Status Reason Start Date Expiration Date Visits V isits Requested Authorized [id number] Closed Specialty 04/30/2021 10/30/2022 1 1 Service Requested Encounter Details Date Type Department Care Team Description 04/30/2021 Orders Only General Surgery at Demetra Fernandez neoplasm of [facility] Maxim upper-outer quadrant [facility] of right breast in Drive [place], [place] [address] GENERAL SURGERY receptor negative [phone] [place] [address] Social History Tobacco Use Types Packs/Day Years [...] documented as of this encounter Progress Notes Helen Sanchez - 04/30/2021 12:59 PM EDT mn documented in this encounter Plan of Treatment Upcoming Encounters Date Type Specialty Care Team Description 10/15/2022 Office Visit Hematology and Oncology Aldo Gaming MD [facility] DEPT. [place], [place] [address] (Wo rk) documented as of this encounter Results NM [place] Node Injection Breast wo Imaging (05/23/2021 7:08 AM EDT) Anatomical Region Laterality Modality Nuclear Medicine Specimen (Source) Anatomical Location Collection Method / Collectio n Time Received Time / Laterality Volume Impressions 05/23/2021 8:33 AM EDT [place] node injections performed without complication. Thank you for letting us participate in the care of this patient. ??If you are a health care provider and have any questi ons regarding this report, please contact the number below. ??For patients who have questions please contact the health critical care physician that requested your imaging first. ? Narrative [...] left the department in good condition. IMPRESSION [place] node injections performed witho ut complication. Thank you for letting us participate in the care of this patient. If you are a health care provider and have any questi ons regarding this report, please contact the number below. For patients w ho have questions please contact the health critical care physician that requested your imaging first. Demetra Fernandez MD IMG NM ORDERABLES documented in this encounter Visit Diagnoses Diagnosis Malignant neoplasm of upper-outer quadra nt of right breast in female, estrogen receptor negative Malignant neoplasm of upper-outer quadra nt of right breast in female, estrogen receptor negative documented in this encounter Care Teams Counselor Aid Relationship Specialty Start Date End Date Bang Heath MD PCP - General General Internal Medicine 01/18/19 [address] [place] [address] documented as of this encounter
--- OUTSIDE RECORDS SUMMARY | 2022-09-09 09:38 | XMS_ITS | Encounter Summary ---
:1955 Author Organization [facility] [place] [address] Care Team Providers Name Role Phone Bang Heath MD Primary Care Provider Encounter Details Date Type Department Care Team Description 04/16/2021 Patient Outreach Hematology and Oncology Rosalie Pina, [place] [address] Social History Tobacco Use Types Packs/Day [...] Visit Hematology and Oncology Aldo Gaming MD [facility] ER HEMATOLOGY/[facility] DEPT. [place], [place] [address] (Wo rk) documented as of this encounter Visit Diagnoses Not on filedocumented in this encounter Care Teams Die Trimmer Relationship Specialty Start Date End Date Bang Heath MD PCP - General General Internal Medicine 01/18/19 [address] [facility] [place] [address] documented as of this encounter
--- OUTSIDE RECORDS SUMMARY | 2022-09-09 09:38 | XMS_ITS | Encounter Summary ---
:1955 [place] [address] Care Team Providers Name Role Phone Bang Heath MD Primary Care Provider Encounter Details Date Type Department Care Team Description 05/23/2021 Hospital Encounter Outpatient Surgery Kyle Fernandez, Wayne yKa Matamoros MD [facility] [address] [place] [address] [place] [address] [phone] (Wo rk) Social History Tobacco Use Types [...] Sign Reading Time Taken Comments Blood Pressure 116/65 05/23/2021 1:00 PM EDT Pulse 68 05/23/2021 1:15 PM EDT Temperature 36.1 ??C (97 ??F) 05/23/2021 11:51 AM EDT Respiratory Rate 16 05/23/2021 11:51 AM EDT Oxygen Saturation 99% 05/23/2021 1:15 PM EDT Inhaled Oxygen Concentration - - Weight 63.5 kg (140 lb) 05/23/2021 8:20 AM EDT Height 170.2 cm (5' 7) 05/23/2021 8:20 AM EDT Body Mass Index 21.93 05/23/2021 8:20 AM EDT documented in this encounter Discharge Instructions Discharge InstructionsJuan De La Garza RN - 05/23/2021 8:36 AM EDT Images from the original note were not included. Okay to shower 24 hours; you should place a towel around your neck and pin drain to the towel for your shower Activity as tolerated-- do not do any strenuous activity with your right arm until the drain is removed Call [phone] with any questions steristrips will fall off 7-14 days Wear bra as needed for comfort only. You may remove it as you wish Do not soak incision for 2 weeks Will call with pathology results in 5-7 days Ice pack to chest as needed May use tylenol and/or ibuprofen as needed for pain as needed Empty drain twice daily and record output Call clinic at [phone] for drain removal when output less than 30cc per day for [address] when day you feel comfortable turning quickly if you need to twist your body General Anesthesia Discharge Instructions Go home and rest. You may be sleepy for several hours. Take it easy as sudden position changes may cause nausea and/or dizziness. Use caution on stairs. Do not smoke if you are alone. Follow a light to regular diet as tolerated today. If nausea occurs, start with clear liquids, and progress slowly to a regular diet. Do not drive, operate machinery, drink alcoholic beverages or make any legal decisions after having general anesthesia. The medications given change your reaction time and alter your judgement. IV site -- slight redness is normal, you can use warm compresses. If tenderness and redness increases or foul drainage occurs, please contact your M.D. Patients who have had endotracheal tubes/LMA (tubes used by the anesthesia staff to ensure a safe airway during your operation) may have a sore throat. This is normal and cold liquids or soothing lozenges will help ease this discomfort. Narcotic pain medications can cause constipation, please ask the surgeons office what they recommendfor prevention of this. Some non-pharmaceutical means of constipation prevention include increasing intake of fluids, eating more fruits and vegetables as well as fruit juices. If you are uncomfortable and/or unable to urinate within 8 hours of discharge and it is before 5 pm,call your physician. If it is after 5pm go to the closest emergency room or call the hospital cigarette machine operator at [phone] and ask for physician car conditioner covering for your physician. Questions or problems after 5pm or on a weekend: Call the [facility] cigarette machine operator at and ask for the physician car conditioner covering for your doctor. Incentive Spirometer: Use your incentive spirometer (also called an ???IS?? ) as you were shown before surgery: 6 times daily/5 breaths each time. Please use this device for the first 3 days after surgery. Take a slow, deepbreath in through your mouth. While the piston rises (the blue ball), the indicator on the right should move upwards. It should stay between the 2 arrows for 2 to 4 seconds with each breath. If the indicator does not stay between the arrows, you are breathing either too fast or too slowly. The incentive spirometer will help you expand your lungs and encourage you to breathe deeply and fully. DRAIN CARE INSTRUCTIONS This device collects fluid, promotes healing and recovery, and reduces the chance of infection. The drain will be in place until your doctor feels it can be removed. *Strip and empty drain(s) at least twice a day or when full and record output on your chart* Call clinic when each drain has 30cc or less in 24 hours for two days in a row How to Strip and Empty Your ROYA Drain: 1. Wash your hands. 2. Unpin the drain from your clothing. 3. Strip the Tube: a. Pinch the tube where it is inserted in to the skin with one hand. b. Use the other hand to gently squeeze the tube and slide fingers down towards bulb. This forces drainage into bulb. Some drainage may remain in tubing. c. Repeat as necessary in order to facilitate the drainage. 4. Emptying Drain: a. Open the top of the drain. Turn the drain upside down and squeeze the contents of the bulb into the measuring cup. Do not disconnect drain from tubing or rinse it out. b. Record drainage on your chart when emptying bulb. Remember to record the drainage from each drainseparately if applicable. c. Use one hand to squeeze all of the air from the bulb. With the drain still squeezed, use your other hand to replace the stopper/plug. This creates the suction. . 5. Pin the drain back to your clothing. 6. Wash your hands again Troubleshooting ??? The bulb is not compressed- Undo plug, re-squeeze bulb and replace plug while squeezing bulb. Ifthe bulb remains expanded, then notify your doctor. ??? No drainage or sudden decrease in amount of drainage- This is usually due to clots in the drain.Follow the instructions on how to strip the drain tubing. If tube accidentally falls out- Place a dry gauze dressing over the drain site and notify your doctor. ??? Increased redness, thick or smelly drainage, swelling, or heat around the tube insertion site- This may be a sign of infection. Take your temperature: if it is higher than 101F or 38.8C, call your doctor immediately. Drainage Record NAME: Date of Surgery: Date: Time: If more than one drain, which one: Drainage Amount (per drain) Total Amount (per drain; in 24 hours) documented in this encounter Medications at Time [...] Take 1 tablet by 30 tablet 0 01/16/ 021 mg TabletIndications: mouth every 6 hours [...] (TENORMIN) 25 0 03/07/2010 mg tablet Vit A,C,U-Evov-Mkvwix Take 1 tablet by 0 03/06/20 21 07/03/2021 14,320-226-200 mouth. axzy-la-csfy Capsule Lantus Solostar U-100 Inject 18 Units 15 mL 3 1 03/19/2022 Insulin pen subcutaneously every morning. sulfaSALAzine Take 4 tablets by 720 tablet 3 04/18/202102/28 (Azulfidine) 500 mg mouth 2 times daily. Tablet BD Ultra-Fine Short Pen Inject 1 each 400 each 3 1 04/06/2022 Needle 31 gauge x 516 subcutaneously 4 Needle times daily. ICD 10 [...] Acquired hypothyroidism documented as of this encounter Progress Notes Lyubov Arroyo - 05/23/2021 1:30 PM EDT Assisted pt with dressing, into the restroom + void. Patient ambulated to car for discharge accompanied by [facility] staff member. Lyubov Arroyo - 05/23/2021 1:28 PM EDT This note also relates to the following rows which could not be included: Heart Rate - Cannot attach notes to unvalidated device data Heart Rate from SpO2 - Cannot attach notes to unvalidated device data SpO2 - Cannot attach notes to unvalidated device data Discharge teaching with pt and her Bill, reinforced with handouts. Drain emptying/stripping demo provided to pt and her . They deny questions and verbalize understanding. Lyubov Arroyo - 05/23/2021 1:05 PM EDT 15 cc drainage per each side / bulb drain = 30 cc total Lyubov Arroyo - 05/23/2021 12:46 PM EDT This note also relates to the following rows which could not be included: Heart Rate - Cannot attach notes to unvalidated device data Heart Rate from SpO2 - Cannot attach notes to unvalidated device data SpO2 - Cannot attach notes to unvalidated device data Fingerstick glucose checked at 181, pt tolerating crackers and sips of ramez michael. Lyubov Arroyo - 05/23/2021 12:38 PM EDT Pt's spouse called - he's in the car and advises he'll be in later on. Encouraged him to come in so we can review drain care. Amy Vinson RN - 05/16/2021 3:10 PM EDT Patient states that they and their escort for the day of surgery have had the Covid vaccine. They also deny any fever, cough, SOB or any other illness in the last 14 days. Patient informed of procedure to be followed upon arrival to the [facility]. That being, COVID questions will be asked again, temperature will be taken, patient and caregiver/driver education instructor will be given a mask to wear the entire time they are in the [facility] building. documented in this encounter H&P Notes Kyle Fernandez MD - 05/23/2021 7:07 AM EDT SARAH Rutherford is seen today in surgical [...] of technique as detailed Above. ?? Sangeeta has been treated with neoadjuvant ddAC-T which she completed last week. She has tolerated therapy well. She is not aware of a breast mass. She denies adenopathy. She has some fatigue but is otherwise well. N She denies fevers, chills, sob, abdominal pains, lymphedema, breast masses, nipple discharge, skin changes, bone pains. She has mild lower back pain from gardening yesterday. ? Past Medical History: Diagnosis Date ??? History of diverticulitis 09/17/2014 ??? HTN (hypertension) ? Hypothyroidism ? Malignant neoplasm of upper-outer quadrant of right breast in female, estrogen receptor negative01/03/2021 ??? UC (ulcerative colitis) 09/11/2013 ?? FH Great great grandmother with breast cancer. Negative for genetic mutation SH: with 3 children. Grandchildren in [place]. 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 Review of Systems See HPI Gets car and motion sick. Has not had general anesthesia in the past ?? Objective: Physical Exam Well appearing and in nad. There is no cervical, supraclavicular or axillary adenopathy. No masses or skin changes on the left. In the upper, outer right breast there is asymmetry at site of known malignancy. No abdominal or vertebral tenderness. ?? Imaging as in hpi. I have personally reviewed mri ?? Assessment and Plan: ?? Sangeeta is a [...] is not at all interested in reconstruction. Stable for OR?? documented in this encounter Miscellaneous Notes Op Note - Kyle Fernandez MD - 05/23/2021 9:26 AM EDT [facility] Operative Note Patient Name: Tatyana Skelton : [id number] MR#: [id number] Case Date: 05/23/2021 Surgeon: Surgeon(s) and Role: * Kyle Fernandez MD - Primary Preoperative diagnosis: BREAST CANCER - right Postoperative diagnosis: BREAST CANCER Procedure(s) (LRB): MASTECTOMY, SIMPLE, COMPLETE-JORDYN (WRVU 15.85) (Bilateral) BIOPSY OR EXCISION OF LYMPH NODE(S), OPEN, DEEP AXILLARY NODE(S) (WRVU 6.43) (Right) INTRAOPERATIVE ID (MAPPING) SENTINEL LYMPH NODE,INCLUDES INJECTION (WRVU 2.5) (Right) MODIFIER SENTINEL NODE EXCISION (Right) REMOVAL OF TUNNELED CENTRAL VENOUS ACCESS DEVICE, WITH PORT OR PUMP (WRVU 3.35) (Left) Anesthesia: General Estimated Blood Loss: 130 mL Specimens removed during surgery: Order Name Source Comment Collection Info Order Time SPECIMEN TO PATHOLOGY BREAST CANCER POST CHEMOTHERAPY RIGHT BREAST; SHORT STITCH SUPERIOR LONG STITCH LATERAL excision 05/23/2021 9:43 AM Time specimen removed from patient: 9:42 AM Number of tissue samples (in container) 1 SPECIMEN TO PATHOLOGY COUNT 219 REMAINING 6 BREAST CANCER, POST CHEMOTHERAPY RIGHT AXILLARY SENTINEL NODE excision Yes 05/23/2021 10:00 AM Time specimen removed from patient: 9:59 AM Number of tissue samples (in container) 1 SPECIMEN TO PATHOLOGY RIGHT BREAST CANCER LEFT BREAST, SHORT STITCH SUPERIOR, LONG STITCH LATERAL excision Yes 05/23/2021 10:22 AM Time specimen removed from patient: 10:20 AM Number of tissue samples (in container) 1 Drains: Drain/Device Site 05/23/21 1031 Left lower chest collapsible closed device (Active) Drain/Device Site 05/23/21 1047 Right medial chest collapsible closed device (Active) Surgical Closure: Primary Closure - skin incision is completely closed without any wires, fam, drains or other devices Disposition: awakened from anesthesia, extubated and taken to the recovery room in a stable condition, having suffered no apparent untoward event. Condition: doing well without problems (Please see the Surgical Encounter Summary for any Implant and Specimen details pertinent to this patient.) HPI/Surgical Indications: Sangeeta is a 66 yo female with right breast cancer (triple negative) treated with neoadjuvant chemotherapy. She presents for bilateral mastectomy and right axillary sentinel node excision. Procedure Description: Sangeeta was admitted through Same Day Surgery after presenting to radiology for technetium injection for lymphatic mapping. She was brought to the Operating Room and laid supine on the operating table. General anesthetics were administered, and an LMA was placed for airway protection. The chest was prepped and draped in a sterile fashion. Time-out confirmed the patient's identity, the correct surgical site, and the administration of prophylactic antibiotics. Once this had been confirmed, attention was turned to the right breast. An elliptical incision inclusive the nipple-areolar complex was made sharply. This was brought through the dermis using electrocautery. Skin flaps were elevated circumferentially inferiorly to the inframammary fold, laterally to the latissimus border, medially to the sternal border, and superiorly to the infraclavicular border. The breast was then mobilized inclusive of the underlying pectoralis major fascia. Attention was turned to the right axilla. I opened the clavipectoral fascia. 2 sentinel nodes were identified with the gamma probe and excised. Ex vivo count of the highest node was 269 with remaining count 6. There was no palpable adenopathy. In identical fashion, the left mastectomy was performed. Through this incision I opened the capsule of the mediport and removed the subclavian port. The tip was intact. The wounds were irrigated, hemostased, and closed over a 19-Kyrgyz David drain. Sterile dressings were applied. Infection Bundle used? N/A Attestation: Case Date: 05/23/2021 I performed this procedure without the involvement of a resident. KYLE FERNANDEZ MD 05/23/2021 documented in this encounter Plan of Treatment Upcoming Encounters Date Type Specialty Care Team Description 10/15/2022 Office Visit Hematology and Oncology Aldo Gaming MD [facility] HEMATOLOGY/ONCOL ANTIONE DEPT. [place], [place] [address] (Wo rk) documented as of this encounter Procedures Procedure Name Priority Date/Time Associated Comments Diagnosis SPECIMEN TO PATHOLOGY Routine 05/23/2021 10:22 Re sults for this AM EDT procedure are i n the results section. SPECIMEN TO PATHOLOGY Routine 05/23/2021 10:00 Re sults for this AM EDT procedure are i n the results section. SPECIMEN TO PATHOLOGY Routine 05/23/2021 9:43 AM Results for this EDT procedure are i n the results section. SURGICAL PATHOLOGY Routine 05/23/2021 9:42 AM Res ults for this REPORT EDT procedure are i n the results section. REMOVAL OF TUNNELED 05/23/2021 8:49 AM BREAST CANCER CENTRAL VENOUS ACCESS EDT DEVICE, WITH PORT OR PUMP (WRVU 3.35) MODIFIER SENTINEL NODE 05/23/2021 8:49 AM BREAST CANCE R EXCISION EDT INTRAOPERATIVE ID 05/23/2021 8:49 AM BREAST CANCER (MAPPING) SENTINEL EDT LYMPH NODE,INCLUDES INJECTION (WRVU 2.5) BIOPSY OR EXCISION OF 05/23/2021 8:49 AM BREAST CANCER LYMPH NODE(S), OPEN, EDT DEEP AXILLARY NODE(S) (WRVU 6.43) MASTECTOMY, SIMPLE, 05/23/2021 8:49 AM BREAST CANCER COMPLETE-JORDYN (WRVU EDT 15.85) documented in this encounter Results Specimen to Pathology (05/23/2021 10:22 AM EDT) Specimen Anatomical Collection Method Collection Time Receive d Time (Source) Location / / Volume Laterality AP Specimen 05/23/2021 10:22 05/23/2021 AM EDT 10:22 AM EDT [facility] - 05/23/2021 10:22 AM EDT Specimen requisition ordered. ??Separate Pathology report to follow Kyle Fernandez MD PATHOLOGY/CYTOLOGY ORDERABLE S Performing Organization Address City/State/[place] [address] Specimen to Pathology (05/23/2021 10:00 AM EDT) Specimen Anatomical Collection Method Collection Time Receive d Time (Source) Location / / Volume Laterality AP Specimen 05/23/2021 10:00 05/23/2021 AM EDT 10:00 AM EDT [facility] - 05/23/2021 10:00 AM EDT Specimen requisition ordered. ??Separate Pathology report to follow Kyle Fernandez MD PATHOLOGY/CYTOLOGY ORDERABLE S Performing Organization Address City/State/[place] [address] Specimen to Pathology (05/23/2021 9:43 AM EDT) Specimen Anatomical Collection Method Collection Time Receive d Time (Source) Location / / Volume Laterality AP Specimen 05/23/2021 9:43 AM 9:43 EDT AM EDT [facility] - 05/23/2021 9:43 AM EDT Specimen requisition ordered. ??Separate Pathology report to follow Kyle Fernandez MD PATHOLOGY/CYTOLOGY ORDERABLE S Performing Organization Address City/State/ZIP Code Phon e Number [place] [address] Surgical Pathology Report (05/23/2021 9:42 AM EDT) Component Value Ref Test Analysis Performed At [facility] gist Range Method Time Signature Surgical [id number] ? Location: [facility] Pathology SOLON Report The signing pathologist has (i) examined the relevant preparation(s) for the [facility] specimen(s) and (ii) rendered or confirmed the diagnosis(es) . HOSPITAL LABORATORY . ?[employer] RESULTS TEST: HER2 (ERBB2) FISH and Immunohistochemistry, Breast Immunohistochemistry Studies HER2 immunoreactivity: Equivocal (score 2+) (see FISH result below) ? [id number] Overexpression Assessment ?------- ?----- Interpretation ?Score ?Criteria ?------- ?----- Negative ?(0) ?No staining observe d or membrane ? staining that is incomplete and is ? faint/barely perceptible and within ?10% ? of tumor cells Negative ?(1+) ? Incomplete mem brane staining that is ? faint/barely perceptible and within >10% ? of tumor cells Equivocal ? (2+ ) ? Weak to moderate complete membrane staining ? observed within >10% of tumor cells Positive ?(3+) ? Circumferential membrane staining that ? is complete, intense, and within >10% of ? tumor cells Diagnostic categories have b een adjusted to reflect treatment guidelines (ASCO/CAP guidelines 2018) Immunohistochemical assays w ere performed on paraffin-embedded tissue sections fixed in 10% neutral buffered for mary for 6-72 hours using the polymer system technique with appropriate positive a nd negative controls. The assays were performed according to the irrigator gravity flow ' s instructions using Anti-HER2 (4B5) antibody. These tests were developed and their per formance characteristics determined by [facility]. They may not have been cleared or approved by the US Food and Drug Adm inistration. The FDA does not require such tests to go through premarket FDA revie w. These tests are used for clinical purposes and should not be regarded as investig ational or for research. This laboratory is certified under the Clinical Laborato ry Improvement Amendments (CLIA) as qualified to perform high complexity clinical laboratory testing. FISH Studies . RESULTS METHOD: Fluorescence in situ hybridization (FISH) with chromosome 17 centromere (17p11.1-q11.1) probe and a locus specific probe for the HER2 gene locus (17q11.2- q12). SAMPLE ANALYZED: A7-8 RESULT: ?NEGATIVE FOR HER2/CASSIE AMPLIFICATION ? TOTAL # SIGNALS/TOTAL # NUCLEI COUNTED FOR H ER2 PROBE = 78 ? TOTAL # SIGNALS/TOTAL # NUCLEI COUNTED FOR CEP-17 PROBE = 70 ? HER2 TO CEP- 17 RATIO = 1.1 ?(NORMAL RANGE <2.0) ? TOTAL # NUCLEI COUNTED = 40 ? AVERAGE # HER2 signals/cell = 1.9 Interpretation: ??Paraffin-embedded tissue sections were s ubmitted for HER2 (ERBB2) gene amplification analysis by FISH. ??Direct analysis was performed using the Way[employer] Kit. ??Slide adequacy and signal enumeration were evaluated and satisfactory for both contr ol and patient slides. ??A signal ratio derived from the HER2 probe and the CEP-17 c entromere probe of ?2.0 is considered positive for HER2 gene amplification. The 2013 ASCO/CAP guideline recommendation for HER2 testing in breast cancer states that samples with a HER2 to CEP-17 ratio of les s than 2.0 are non-amplified. Specimens with a HER2 to CE P-17 range of ?2.0 are considered amplified. This test is approved by the U.S. FDA for clinical diagnosti c use. Reference: Lisandra CLAROS et al. Recommendations for human epidermal growth factor receptor 2 testing in breas t cancer: [place] Society of Clinical Oncology/College of [place] [employer]ologists cl inical practice guideline update. J Clin Oncol. 2013 Sep 29. Lisandra CLAROS et al. Human Epide rmal Growth Factor Receptor 2 Testing in Breast Cancer: [place] Society of Clinica l Oncology/College of [place] [employer] Clinical Practice Guideline Focused Update. Arch Pathol Lab Med. 2018 April 27/J Clin Oncol. 2017April 27. Reviewed by: Emeterio Redding MD Electronically signed by: ?Vahid MCGINNIS, Emeterio Conklin Verified: ??06/10/2021 13:48 ??Pathologist Performed at: ??-[facility] Dept. of Pathology, [place], [place] ? Addendum ADDENDUM DISCUSSION Immunohistochemistry Studies Specimen: Right breast, mastectomy (A7) ER immunoreactivity: Negative (<1% cancer cells with immunos taining) LA immunoreactivity: Negative HER2 FISH: separate report to follow ? . ADDENDUM DISCUSSION *Diagnostic chowdhury for hormone receptors (ASCO/CAP GUIDELINES, 2020): ?Negative immunoreactivity: <1% tumor cells with immuno staining ?Positive immunoreactivity: >=1% tumor cells with immun ostaining ??Low Positive: 1-10% tumor cells with immunostaining* *There are limited data on t he overall benefit of endocrine therapies for patients with low level (1-10%) ER e xpression, but they currently suggest possible benefit, so patients are considered eligible for endocrine treatment. There are data that suggest invasive cancers wi th these results are heterogeneous in both behavior and biology and often have gene expression profiles more similar to ER-negative cancers. Immunohistochemical assays w ere performed on paraffin-embedded tissue sections fixed in 10% neutral buffered for mary for 6-72 hours using the polymer system technique with appropriate controls. The assays were performed according to the irrigator gravity flow ? 's instructions using Anti-ER (SP1) and Anti-LA (16) antibodie s. These tests were developed and their per formance characteristics determined by [facility]. They may not have been cleared or approved by the US Food and Drug Adm inistration. The FDA does not require such tests to go through premarket FDA revie w. These tests are used for clinical purposes and should not be regarded as investig ational or for research. This laboratory is certified under the Clinical Laborato ry Improvement Amendments (CLIA) as qualified to perform high complexity clinical laboratory testing. Electronically signed by: ?Kayla Still DO Verified: ??06/03/2021 8:35 ?? Pathologist Performed at: ??-[facility] Dept. of Pathology, [place], [place] ?Surgic al Pathology DIAGNOSIS A - Right breast, mastectomy, post neoadjuvant therapy: ??- Invasive lobular carcinoma with pleomorphic features (s ee ?Synoptic Report and Discussion). ??- Fibrocystic changes (cysts, fibroadenomatous change, ?mild usual ductal hyperplasia). ??- Benign skin and nipple. B - Right axillary sentinel lymph node, excision: ??- Three lymph nodes negative for malignancy (0/3). ??- No treatment effect present. C - Left breast, mastectomy: ??- Benign breast tissue. ??- Benign skin and nipple. Electronically signed by: ?Kayla Still DO Verified: ??05/30/2021 16:20 ??Pathologist Performed at: ??-[facility] [facility], [place], [place] SYNOPTIC Specimen Parts: ??A, B Specimen ? Procedure: ??Total mastectomy ? Specimen Laterality: ??Right Tumor ? Tumor Site: ??Upper outer quadrant ? Histologic Type: ??Invasive lobular carcinoma ?Histologic Type Comments: ??with pleomorph ic features ? Glandular (Acinar) / Tubular Differentiation: ? ?Score 3 ? Nuclear Pleomorphism: ??Score 3 ? Mitotic Rate: ??Score 1 ? Overall Grade: ??Grade 2 (scores of 6 or 7) ? Tumor Size: ??25 Millimeters (mm) . SYNOPTIC ? Ductal Carcinoma In Situ (DCIS): ??Not identifi ed ? Lobular Carcinoma In Situ (LCIS): ??Present ? Tumor Extent ?Skin Invasion: ??Skin is present and uninv olved ? Lymphovascular Invasion: ??Present ? Treatment Effec t in the Breast: ??No definite response to presurgical therapy ?in the invasive carcinoma ? Treatment Effec t in the Lymph Nodes: ??No lymph node metastases and no fibrous ?scarring or histiocytic aggregates in the nod es Margins ? Invasive Carcinoma Margins: ??Uninvolved by i nvasive carcinoma ?Distance from Closest Margin (Millimeters) : ??1.5 mm ?Closest Margin(s): ??Posterior ?Distance from Other Margins ? Anterior Margin (Millimeters): ??14 Lymph Nodes ? Regional Lymph Nodes: ??Uninvolved by tumor fausto ls ?Total Number of Lymph Nodes Examined: ??3 ?Number of [place] Nodes Examined: ??3 Pathologic Stage Classification (pTNM, AJCC 8th Edition) ? TNM Descriptors: ??y (post-treatment) ? Primary Tumor (pT): ??pT2 ? Regional Lymph Nodes Modifier: ??(sn): [place] node(s) evaluated. ? Regional Lymph Nodes (pN): ??pN0 Tumor Block(s): ??A7 CAP eCC December 2019 Annual Release DISCUSSION The stroma associated with t he invasive tumor shows foci of dense fibrosis which may represent focal/mild treatment response; ho wever, additional features of treatment response (chronic inflammation, histiocytes, stromal edema, and stromal calcifications) are not identified. Grossly, two areas of dense fibrous tissue were identified in the upper inner quadrant corresponding to p ossible satellite lesions described on MRI (performed on 12/26/20). Microscopic secti ons corresponding to these areas, as well as additional nontargeted sections taken from the upper inner quadrant, show benign breast tissue with fibrocystic akila nges. Additional satellite tumors are not grossly or microscopically identified. Studies for ER, LA, and HER2 have been ordered; result s will be issued in an addendum. SPECIMEN(S) SUBMITTED A - RIGHT BREAST; SHORT STITCH SUPERIOR LONG STITCH LATERAL, excision (1) B - RIGHT AXILLARY SENTINEL NODE, excision (1) C - LEFT BREAST, SHORT STITCH SUPERIOR, LONG STITCH LATERAL, excision (1) CLINICAL INFORMATION Breast cancer post chemotherapy SPECIMEN PROCESSING A - Labeled/Fixative: Right breast; short stitch superior long stitch lateral, fresh. Quantity/Size/Weight: Single, 25 cm (medial to l ateral) by 20 cm (superior to inferior) by 3.5 cm (anterior to posterior), 380 g. SPECIMEN DESCRIPTION Resection Specimen: Intact, right, simple mastectomy. Orientation: A short suture superior and a long suture as la teral. . SPECIMEN PROCESSING Skin: And the overlying abran pse of wilkerson skin is 25 x 10 cm with an eccentric 3.6 cm diameter areola. Nipple: 1.1 cm diameter, rubbery, everted. Deep Margin: Intact fascia with no muscle. LESION (1) ??Radiologic Correlation: date: 04/15/2021. ??Description: 2.2 x 2.2 x 2.0 cm, white, firm, tumor bed, with ill-defined borders. Focal, central residual tumor is identified (1.3 x 0.6 x 0. 4 cm) ??Location: Upper outer quadrant. ??Distance from nipple: 4.5 cm. ??Clip: Identified. ??Margins: 1.0 cm from the posterior margin and 1.4 cm from the anterosuperior margin at approximately 10:30. ??Distance from lesion 2: 5 cm. ??Distance from lesion 3: 5 cm. ??Cassettes containing lesion: A4-A11. LESION (2) ??Radiologic Correlation: date: 04/15/2021. ??Description: 0.5 x 0.4 x 0.4 cm, olmedo-blue, firm, area of indurated fibrous tissue, with ill-defined borders. ??Location: Upper inner quadrant. ??Distance from nipple: 3.5 cm. ??Clip: Not identified. ??Margins: 0.9 cm from the closest anterosuperi or margin and 3.1 cm from the posterior margin. ??Distance from lesion 3: Lesion 2 is 1.5 cm anterior to le cuca 3. ??Cassettes containing lesion: A14. LESION (3) ??Radiologic Correlation: date: 04/15/2021. ??Description: 0.7 x 0.5 x 0.5 cm, white, firm, area of indurated fibrous tissue, with ill-defined borders. ??Location: Upper inner quadrant. ??Distance from nipple: 3.5 cm. ??Clip: Not identified. ??Margins: 1.0 cm from the posterior margin and 2.5 cm from the anterosuperior margin. ??Cassettes containing lesion: A16. OTHER Parenchyma: 40% firm white f ibrous tissue admixed with 60% yellow lobular adipose tissue. No lymph nodes are identified. Ink Designation: Posterior m argin inked black. Adipose tissue at edge of skin inked blue. Sections/Processing: Rubber Printing Machine Operator sections in 24 cassettes as follows: ?A1-A2: ??Perpendicular nipple ?A3: ??Cross section of base of nipple ?A4-A11: ??Lesion 1, en tirely submitted with closest posterior margin (sequentially ? submitted from lateral to medial) ?A12: ??Closest anterior margins lesion 1 ?A13: ??Fibrous tissue between lesion 1 and lesions 2/3 ?A14: ??Lesion 2 with a nterosuperior margin (closest anterior margins lesion 3) ?A15: ??Fibrous tissue between lesion 2 and lesion 3 ?A16: ??Lesion 3 with p osterior margin (closest posterior margin to lesion 2) ?A17-A18: ??Fibrous tissue, upper outer quadrant ?A19-A20: ??Fibrous tissue upper inner quadrant ?A21-A22: ??Fibrous tissue lower inner quadrant ?A23-A24: ??Fibrous tissue lower outer quadrant Ischemic Time: 1.9 hours B - Labeled/Fixative: Right axillary sentinel node count 219, remaining 6, fresh. Quantity/Size: Single, 3.2 x 2.2 x 0.8 cm. . SPECIMEN PROCESSING Tissue Description: Yellow l obular adipose tissue with 3 distinct firm wilkerson-pink lymph nodes, ranging from 0.5 x 0.5 x 0.4 cm to 1.5 x 1.0 x 0.7 c m Sections/Processing: The lymph nodes are entirely submitted in 4 cassettes as fol lows: ?B1: ??Bisected lymph node ?B2: ??Serially sectioned lymph node ?B3-B4: ??Serially sectioned lymph node C - Labeled/Fixative: Left b reast, short stitch superior, long stitch lateral, fresh. Quantity/Size/Weight: Single, 25 cm (medial to l ateral) by 18 cm (superior to inferior) by 3.5 cm (anterior to posterior), 352 g. SPECIMEN DESCRIPTION Resection Specimen: Intact, left, simple mastectomy. Orientation: A short suture superior and a long suture as la teral. Skin: And the ellipse of unr emarkable wilkerson skin is 25 x 9 cm, with an eccentric 3.6 cm diameter areola. Nipple: 1.4 cm diameter, rubbery, everted. Deep Margin: Intact fascia with no muscle. Parenchyma: 40% firm white f ibrous tissue admixed with 60% yellow lobular adipose tissue. There are no lesions or lymph nodes. Ink Designation: Posterior m argin inked black. Adipose tissue at edge of skin inked blue. Sections/Processing: Rubber Printing Machine Operator sections in 11 cassettes as follows: ?C1-C2: ??Perpendicular nipple ?C3: ??Cross section of base of nipple ?C4-C5: ??Fibrous tissue, upper outer quadrant ?C6-C7: ??Fibrous tissue, upper inner quadrant ?C8-C9: ??Fibrous tissue lower inner quadrant ?C10-C11: ??Fibrous tissue lower outer quadrant Ischemic Time: 1.4 hours ??aretha Specimen (Source) Anatomical Collection Method Collection Time Re ceived Time Location / / Volume Laterality 05/23/2021 9:42 AM EDT Kyle Fernandez MD PATHOLOGY/CYTOLOGY ORDERABLE S Performing Organization Address City/State/ZIP Code Phon e Number [place] [phone] documented in this encounter Visit Diagnoses Not on filedocumented in this encounter Administered Medications Inactive Administered Medications - up to 3 most recent administrations Medication Order MAR Action Action Date Dose Rate Site traMADoL (Ultram) tablet 50 mg 50 mg, Oral, EVERY 6 HOURS PRN, Starting on Wed05/23/21 at 1149, Until Wed05/23/21 at 1538, Pain, Routine documented in this encounter Active and Recently Administered Medications Times are shown in EDT. Scheduled Medication Order 05/21/2021 05/22/2021 05/23/2021 ceFAZolin (Ancef) 2 g in dextrose 5% 100 mL infusion (COMPLETED) 0901 (Given - Provider: Ankit Hawthorne CRNA) 2 g, Intravenous, EVERY 3 HOURS, 1 dose, First dose on Wed05/23/21 at 0830, Administer over 30 Minutes, Intra-Operative (Intra-Procedure), Indication for (Active or Suspected): Prophylaxis Continuous Medication Order 05/21/2021 05/22/2021 05/23/2021 lactated ringers infusion (CANCELED) 0848 (New Bag - Provider: Ankit Hawthorne CRNA)0941 (Anesthesia Volume Adjustment - Provider: Ankit Hawthorne CRNA)1029 (Anesthesia Volume Adjustment - Provider: Janina Carey MD) 1,000 mL, at 100 mL/hr, Intravenous, CON TINUOUS, Starting on Wed05/23/21 at 0830, Until Wed05/23/21 at 1336, Day of Surgery (Day of Procedure) 1046 (Anesthesia Volume Adjustment - Provider: Janina Carey MD)1114 (New Bag - Provider: Ankit Hawthorne CRNA)1125 (Anesthesia Volume Adjustment - Provider: Ankit Hawthorne CRNA) PRN Medication Order 05/21/2021 05/22/2021 05/23/2021 traMADoL (Ultram) tablet 50 mg 50 mg, Oral, EVERY 6 HOURS PRN, Starting on Wed05/23/21 at 1149, Until Wed05/23/21 at 1538, Pain, Routine documented in this encounter Care Teams Chair Inspector And Leveler Relationship Specialty Start Date End Date Bang Heath MD PCP - General General Internal Medicine 01/18/19 [address] [place] [address] documented as of this encounter
--- OUTSIDE RECORDS SUMMARY | 2022-09-09 09:38 | XMS_ITS | Encounter Summary ---
:1955 Author Organization [facility] [place] [address] Care Team Providers Name Role Phone Bang Heath MD Primary Care Provider Encounter Details Date Type Department Care Team Description 04/16/2021 Telephone Hematology and Oncology [place] [address] Social History Tobacco Use Types Packs/Day [...] this encounter Miscellaneous Notes Telephone Encounter - Thelma Pina RN - 04/16/2021 4:11 PM EDT [facility] Nurse Navigation Patient Care Plan for the Comprehensive Breast Program (CBP) Reason for call: contacted Tatyana Lucero Costa via phone to assess for nurse navigation services, per CBPnotification, and to see if she had any questions prior to her surgical oncology consultation at [facility]. Introduced her to the CBP. Tatyana Skelton is a 66 y.o. 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 Sangeeta began treatment with neoadjuvant chemotherapy on 01/26/21 (dd AC-T) with Dr. Gaming's team. She plans for last cycle of chemotherapy on 04/24/21. She is interested in bilateral mastectomy without reconstruction and would like to discuss chances of a contralateral breast cancer developing over the next few years when she meets with Dr. Doe 04/30. Sangeeta sounds positive and has support. Her may accompany her to appointment. She may choose tohave her [id number], who has the same surgeon, on the phone for her consult. She appears to be coping well but is anxious to meet with a breast surgeon to determine a treatment plan. [facility] is active. Plan: breast MRI completed 12/26/20 at [facility] prior to neoadjuvant chemotherapy. Consultation with a breast surgeon has been scheduled. She was introduced to the CBP and told she would receive information about her diagnosis and treatment for her review (the Breast Cancer Treatment Handbook; BEE Early-Stage: Invasive Breast Cancer program provided and viewed). Plan to meet with Sangeeta on the day of her consult apt. She understands that Janina Batres, VICTOR HUGO, GABI and I are available to her for support/concerns. Addressed her questions and encouraged her to contact me with any additional questions or concerns. She has our contact information. FAMILY HISTORY Breast Cancer - possibly in a GGM at older age (had mastectomy) Genetic testing done, per Sangeeta, and no deleterious mutation(s) were found. Laterality:Right Is this a recurrence:No Family history of breast cancer:Yes Family history of ovarian cancer: No Personal history or breast cancer:No Method of detection: Mammogram Method of diagnosis: Ultrasound Core Biopsy Identified Barriers: none identified at present Patient comments or concerns: her may accompany her. He's very concerned (he was treated forcancer at [facility] and is currently in remission). documented in this encounter Plan of Treatment Upcoming Encounters Date Type Specialty Care Team Description 10/15/2022 Office Visit Hematology and Oncology Aldo Gaming MD [facility] [place] [address] (Wo rk) documented as of this encounter Visit Diagnoses Not on filedocumented in this encounter Care Teams Exotic Dancer Relationship Specialty Start Date End Date Bang Heath MD PCP - General General Internal Medicine 01/18/19 [address] [place] [address] documented as of this encounter
--- OUTSIDE RECORDS SUMMARY | 2022-09-09 09:38 | XMS_ITS | Encounter Summary ---
:1955 Author Organization [facility] [place] [address] Care Team Providers Name Role Phone None Primary Care Provider Unavailable Reason for Visit Reason Onset Date Comments Medication Refill 08/11/2021 Encounter Details Date Type Department Care Team Description 08/11/2021 Refill Endocrinology at [facility] Lexi Lazo, Acquired hypothyroidism [facility] [place] [address] Social History Tobacco Use Types Packs/Day [...] [facility] HEMATOLOG[facility] DE[facility]. [place], [place] [address] (Wo rk) documented as of [...] as of this encounter Visit Diagnoses Diagnosis Acquired hypothyroidism Unspecified hypothyroidism documented in this encounter Care Teams Computer Salesperson Retail Relationship Specialty Start Date End Date None PCP - General 06/11/21 04/02/22 None documented as of this encounter
--- OUTSIDE RECORDS SUMMARY | 2022-09-09 09:38 | XMS_ITS | Encounter Summary ---
:1955 Author Organization [facility] [place] [address] Care Team Providers Name Role Phone Bang Heath MD Primary Care Provider Encounter Details Date Type Department Care Team Description 06/05/2021 Hospital Encounter [facility]amm[facility] [place] [facility] Kristine Nolan [facility] [place] [address] [facility] [phone] DR DIAGNOSTIC RADIOLOGY [place] [phone] (Wo rk) Social History Tobacco Use Types [...] by 1 Device 3 03/12/2021 DeviceIndications: [facility].(Non-Drug; Combo (latent autoimmune Route) route diabetes in [...] each by 600 each 3 01/18/2019 gauge [facility].(Non-Drug; Combo Route) route 6 times daily. losartan (COZAAR) 50 mg Take 25 mg by mouth 3 Tablet daily. Chromium Picolinate 200 Take 200 mcg by mouth 0 mcg Tablet daily. multivitamin Take 1 tablet by 0 (THERAGRAN) Tablet mouth daily. Calcium Take by mouth daily. 0 Carbonate-Vitamin D3 600 mg(1,500mg) -400 unit Capsule atenolol (TENORMIN) 25 0 03/07/2010 mg tablet Vit A,C,X-Yrqb-Unhamt Take 1 tablet by 0 03/06/20 21 07/03/[phone] mouth. rpfh-al-hfou Capsule Lantus Solostar U-100 Inject 18 Units 15 mL 3 1 03/19/2022 Insulin pen subcutaneously every morning. sulfaSALAzine Take 4 tablets by 720 tablet 3 04/18/2021/03/2022 (Azulfidine) 500 mg mouth 2 times daily. Tablet BD Ultra-Fine Short Pen Inject 1 each 400 each 3 04/1404/06/2022 Needle 31 gauge x 5/16 subcutaneously 4 [...] Visit Hematology and Oncology Aldo Gaming MD [facility] HEMATOLOGY/[facility] DE[facility]. [place], [place] [address] (Wo rk) documented as of this encounter Procedures Procedure Name Priority Date/Time Associated Comments Diagnosis MAMMO BREAST Routine 06/05/2021 2:53 PM Results f or this PATHOLOGY MASTECTOMY EDT procedu re are in the results section. documented in this encounter Results MAMMO BREAST PATHOLOGY MASTECTOMY (06/05/2021 2:53 PM EDT) Specimen (Source) Anatomical Location Collection Method / Collectio n Time Received Time / Laterality Volume Narrative [facility] - 06/05/2021 2:53 PM EDT This exam is auto-finalizing. No interpr etation was done. Kristine Nolan MD IMG MAMMO ORDERABLES Performing Organization Address City/State/ZIP Code Phon e Number [facility] [place], [place] documented in this encounter Visit Diagnoses Not on filedocumented in this encounter Care Teams Ski Patroller Relationship Specialty Start Date End Date Bang Heath MD PCP - General General Internal Medicine 01/18/19 [address] [place] [address] documented as of this encounter
--- OUTSIDE RECORDS SUMMARY | 2022-09-09 09:38 | XMS_ITS | Encounter Summary ---
:1955 Author Organization [place] [address] Care Team Providers Name Role Phone Bang Heath MD Primary Care Provider Encounter Details Date Type Department Care Team Description 05/23/2021 Surgery Outpatient Surgery Kyle Fernandez MA STECTOMY, SIMPLE, Center Kya Matamoros MD COMPLETE-JORDYN ([facility] 15.85) [facility] [address] [place] [address] [place] [address] [phone] (Wo rk) Social History Tobacco Use Types [...] Sign Reading Time Taken Comments Blood Pressure 116/61 05/23/2021 8:20 AM EDT Pulse 70 05/23/2021 8:20 AM EDT Temperature 36.5 ??C (97.7 ??F) 05/23/2021 8:20 AM EDT Respiratory Rate 18 05/23/2021 8:20 AM EDT Oxygen Saturation 96% 05/23/2021 8:20 AM EDT Inhaled Oxygen Concentration - - [...] arm until the drain is removed Call [phone] with any questions steristrips will fall off [...] daily and record output Call clinic at [phone] for drain removal when output less than [...] closest emergency room or call the hospital landfill gas collection operator at [phone] and ask for physician general medical practitioner covering for your physician. Questions or problems after 5pm or on a weekend: Call the [facility] landfill gas collection operator at and ask for the physician general medical practitioner covering for your doctor. Incentive Spirometer: Use [...] each by 600 each 3 01/18/2019 gauge [facility] Misc.(Non-Drug; Combo Route) route 6 times daily. losartan (COZAAR) 50 mg Take 25 mg by mouth 3 Tablet daily. Chromium Picolinate 200 Take 200 mcg by mouth 0 mcg Tablet daily. multivitamin Take 1 tablet by 0 (THERAGRAN) Tablet mouth daily. Calcium Take by mouth daily. 0 Carbonate-Vitamin D3 600 mg(1,500mg) -400 unit Capsule atenolol (TENORMIN) 25 0 03/07/2010 mg tablet Vit A,C,N-Tlnv-Geqjou Take 1 tablet by 0 03/06/20 21 07/03/[phone],[id number] mouth. ctnk-tc-ecmy Capsule Lantus Solostar U-100 Inject 18 Units [...] data Discharge teaching with pt and her Deep, reinforced with handouts. Drain emptying/stripping demo provided [...] again, temperature will be taken, patient and caregiver/motorcycle delivery driver will be given a mask to wear [...] mutation SH: with 3 children. Grandchildren in [place]. 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 Review [...] Fernandez MD - 05/23/2021 9:26 AM EDT [facility] [place] Patient Name: Tatyana Skelton : [id number] MR#: [id number] Case Date: 05/23/2021 Surgeon: Surgeon(s) and Role: [...] were irrigated, hemostased, and closed over a 19-Tajik David drain. Sterile dressings were applied. Infection Bundle used? N/A Attestation: Case Date: 05/23/2021 I performed this procedure without the involvement of a resident. KYLE FERNANDEZ MD 05/23/2021 documented in this encounter Plan of Treatment Upcoming Encounters Date Type Specialty Care Team Description 10/15/2022 Office Visit Hematology and Oncology Aldo Gaming MD [facility] HEMATOLOGY/[facility] DEPT. [place], [place] [address] (Wo rk) documented as of [...] 10:22 05/23/2021 AM EDT 10:22 AM EDT Narrative [facility] - 05/23/2021 10:22 AM EDT Specimen requisition ordered. ??Separate Pathology report to follow Kyle Fernandez MD PATHOLOGY/CYTOLOGY ORDERABLE S Performing Organization Address City/State/[place] [address] Specimen to Pathology (05/23/2021 10:00 AM EDT) Specimen Anatomical Collection Method Collection Time Receive d Time (Source) Location / / Volume Laterality AP Specimen 05/23/2021 10:00 05/23/2021 AM EDT 10:00 AM EDT Narrative [facility] - 05/23/2021 10:00 AM EDT Specimen requisition ordered. ??Separate Pathology report to follow Kyle Fernandez MD PATHOLOGY/CYTOLOGY ORDERABLE S Performing Organization Address City/State/[place] [address] Specimen to Pathology (05/23/2021 9:43 AM EDT) Specimen Anatomical Collection Method Collection Time Receive d Time (Source) Location / / Volume Laterality AP Specimen 05/23/2021 9:43 AM 9:43 EDT AM EDT Narrative [facility] - 05/23/2021 9:43 AM EDT Specimen requisition ordered. ??Separate Pathology report to follow Kyle Fernandez MD PATHOLOGY/CYTOLOGY ORDERABLE S Performing Organization Address City/State/ZIP Code [place] [address] Surgical Pathology Report (05/23/2021 9:42 AM EDT) Component Value Ref Test Analysis Performed At [facility] gist Range Method Time Signature Surgical [id number] ? Location: [facility] Pathology IOLA Report The signing pathologist has (i) examined the relevant preparation(s) for the [facility]ORIAL specimen(s) and (ii) rendered or confirmed the diagnosis(es) . HOSPITAL LAB[facility]ORY . ?Molecu lar Genetics RESULTS TEST: HER2 (ERBB2) FISH and Immunohistochemistry, Breast Immunohistochemistry Studies HER2 immunoreactivity: Equivocal (score 2+) (see FISH result below) ? [id number] Overexpression Assessment ?------- ?----- Interpretation ?Score ?Criteria [...] The assays were performed according to the route manager ' s instructions using Anti-HER2 (4B5) antibody. These tests were developed and their per formance characteristics determined by [facility]. They may not have been cleared [...] FISH. ??Direct analysis was performed using the SaludFÁCILion Kit. ??Slide adequacy and signal enumeration were [...] receptor 2 testing in breas t cancer: [place] Society of Clinical Oncology/College of [place] [employer]ologists cl inical practice guideline update. J Clin Oncol. 2013 Nov . Lisandra CLAROS et al. Human Epide rmal Growth Factor Receptor 2 Testing in Breast Cancer: [place] Society of Clinica l Oncology/College of [place] Pathologists Clinical Practice Guideline Focused Update. Arch Pathol Lab Med. 2018 April 27/J Clin Oncol. 2017April 27. Reviewed by: Emeterio Redding MD Electronically signed by: ?Vahid MCGINNIS, Emeterio Conklin Verified: ??06/10/2021 13:48 ??Pathologist Performed at: ??-[facility] [place]. [place], [place], [place] ? Addendum ADDENDUM DISCUSSION Immunohistochemistry Studies Specimen: Right breast, mastectomy (A7) ER immunoreactivity: Negative (<1% cancer cells with immunos taining) ME immunoreactivity: Negative HER2 FISH: separate report to [...] The assays were performed according to the route manager ? 's instructions using Anti-ER (SP1) and Anti-ME (16) antibodie s. These tests were developed and their per formance characteristics determined by [facility]. They may not have been cleared [...] Verified: ??06/03/2021 8:35 ?? Pathologist Performed at: ??-[facility] [place]. [place], [place], [place] ?Surgic al Pathology DIAGNOSIS A - [...] DO Verified: ??05/30/2021 16:20 ??Pathologist Performed at: ??-[facility] Dept. of Pathology, [place], [place] SYNOPTIC Specimen Parts: ??A, B Specimen [...] of Lymph Nodes Examined: ??3 ?Number of Roberts Nodes Examined: ??3 Pathologic Stage Classification (pTNM, AJCC 8th Edition) ? TNM Descriptors: ??y (post-treatment) ? Primary Tumor (pT): ??pT2 ? Regional Lymph Nodes Modifier: ??(sn): Roberts node(s) evaluated. ? Regional Lymph Nodes (pN): ??pN0 Tumor Block(s): ??A7 [facility] December 2019 Annual Release DISCUSSION The stroma [...] grossly or microscopically identified. Studies for ER, ME, and HER2 have been ordered; result s [...] at edge of skin inked blue. Sections/Processing: Geographic Information Systems Analyst sections in 24 cassettes as follows: ?A1-A2: [...] at edge of skin inked blue. Sections/Processing: Geographic Information Systems Analyst sections in 11 cassettes as follows: ?C1-C2: [...] Organization Address City/State/[place] [address] documented in this encounter [...] Routine documented in this encounter Care Teams Official Court Interpreter Relationship Specialty Start Date End Date Bang Heath MD PCP - General General Internal Medicine 01/18/[address] [place] [address] [address] [facility] [address] [place] [address] documented as of this encounter
--- OUTSIDE RECORDS SUMMARY | 2022-09-09 09:38 | XMS_ITS | Encounter Summary ---
:1955 Author Organization [facility] [place] [address] Care Team Providers Name Role Phone None Primary Care Provider Unavailable Reason for Visit Reason Comments Patient Education Medication Management Encounter Details Date Type Department Care Team Description 07/11/2021 Specialty Pharmacy Pharmacy at [facility] Patient Education; [facility] [place] [id number] Social History Tobacco Use Types Packs/Day Years [...] of this encounter Progress Notes [facility] - 07/11/2021 3:16 PM EDT Specialty Pharmacy Consultation; [facility] Comprehensive Medication Management (CMM) Tatyana Skelton Diagnosis: Breast Cancer Therapy Start Date: 07/11/21 Contact in person or via telephone:telephone Ms. Tatyana Skelton is a 66 y.o. (1955) female who was called today. I spoke with the patient regarding their specialty medication Capecitabine and a review of the drug therapy was performed. The medication was filled as scheduled, and all related questions and concerns were addressed. The specialty pharmacy staff will follow up with the patient 5-7 days prior to next refill. Is the patient willing to proceed with the Clinical Assessment? Yes Summary and Recommendations: It was my pleasure to speak with Tatyana today regarding the Specialty Pharmacy services and her Capecitabine therapy. We reviewed her allergy and medication list. I reviewed her problem list. She will let the pharmacist know if she is taking any new medication during refill reminder calls. Capecitabine 1500 mg (500 mg x3) PO BID x 14 days, followed by 7 days off is prescribed. Capecitabine should be swallowed whole with a glass of water after eating. Three 500 mg tablets equals one dose and should be taken all at once. Do not double up on missed doses. If you miss a dose and remember itwithin a couple of hours it's ok to take, but do not double dose. We talked about cycles and days and I suggested the use of a calendar to track dose, days on and days off. Capecitabine is an oral chemotherapy that should be stored at room temperature, safely away from children and pets. Please wash hands with soap and water after handling the medication. If capecitabine remains after treatment end, return it to a pharmacy take back location Do not discard in household trash or wash it down the drain. The side effects of Capecitabine were reviewed to be: Somatitis: May use a warm salt and baking soda rinse to cleanse mouth. Report trouble eating to dining room host Nausea: May use prochlorperazine you have at home if needed Diarrhea: Use Imodium/loperamide and follow instructions on the package. Stay hydrated and report more than two loose stools over your normal bowel habits Constipation: May use Miralax or Senakot Dry skin, rash: Use moisturizers daily. Recommended Eucerin, aquaphor, especially on hands and feet. PPE or H/F: Do not take hot showers, report red, discolored or cracking on hands and feet. Hair loss may happen Tatyana and I also talked about the Shingrix vaccine which she should get, but timing is important. She also asked about dental work. I suggested she keep a list of these types of questions to ask the oncologist at her next visit. Tatyana and her have postponed a trip to [facility] as she feels it's safest to take precautions right now. She realizes she will be immunocompromised and will limit travel Specialty Pharmacy services were reviewed. Tatyana has a Welcome Packet at home and will sign and return the agreement page. She knows a pharmacist is available 21/06 to answer drug related questions and has out phone number. Capecitabine was mailed to Tatyana earlier in the week for a $50.73 copayment Clinic follow-up needed: yes - labs and OV 07/31/21 Allergies and Drug intolerance: Allergies Allergen Reactions [...] of right breast in female, estrogen receptor [id number], Z17.1 Special Dietary or Hydration Requirements: yes - take after eating There is no height or weight on file to calculate BMI. Medication reconciliation discrepancies (compared to [facility] med list): no Medication Adherence Patient reported X missed doses in the last month: 0 Any gaps in refill history greater than 2 weeks in the last 3 months: no Demonstrates understanding of importance of adherence: yes Informant: patient Reliability of informant: reliable Provider-estimated medication adherence level: 90-100% Reasons for non-adherence: no problems identified Adherence tools used: calendar Confirmed plan for next specialty medication refill: delivery by pharmacy Medication List: Current Outpatient Medications Medication Sig Note Dispense Refill ??? CAPEcitabine (Xeloda) 500 mg tablet Take 3 tablets (1,500 mg) by mouth 2 times daily for 14 days. Then take 7 days off for a 21 day cycle. Take within 30 minutes after eating. Call clinic before/prior to starting medication/script. Indications: metastatic breast carcinoma, ICD10 = C50.911 84 tablet 0 ??? glucagon (Baqsimi) 3 mg/actuation Carpenter, Non-Aerosol 3 mg by Nasal route as needed (administer dose into one nostril, may repeat in 15 minutes if no response while awaiting Emergency assistance). 2each 1 ??? Lantus Solostar U-100 Insulin pen Inject 18 Units subcutaneously every morning. (Patient taking differently: Inject 18 Units subcutaneously every morning. 18 units) 15 mL 3 ??? sulfaSALAzine (Azulfidine) 500 mg Tablet Take 4 tablets by mouth 2 times daily. 720 tablet 3 ??? humaLOG KwikPen 100 unit/mL Insulin Pen Inject 1-6 Units subcutaneously 3 times daily (before meals). ICD 10 Code: E10.9 06/11/2021: 1-6 units tid 15 mL 3 ??? prochlorperazine (Compazine) 10 mg Tablet Take [...] by mouth daily. 90 tablet 3 ??? estradioL (ESTRACE) 0.01 % (0.1 mg/gram) Cream three times a week. ??? nystatin (MYCOSTATIN) Cream ??? atorvastatin (LIPITOR) 40 mg Tablet Take 1 tablet by mouth daily. 90 tablet 3 ??? losartan (COZAAR) 50 mg Tablet Take 25 mg by mouth daily. 06/11/2021: 25 mg 3 ??? multivitamin (THERAGRAN) Tablet Take 1 tablet by mouth daily. ??? Calcium Carbonate-Vitamin D3 600 mg(1,500mg) -400 unit Capsule Take by mouth daily. 04/03/2020: 2 capsules daily ??? atenolol (TENORMIN) 25 mg tablet 01/18/2019: Daily ??? Blood-Glucose Meter,Continuous Misc by NOT APPLICABLE route. ??? glucagon, Human Recombinant, 1 mg Recon Soln Inject subcutaneously. ??? Blood-Glucose Sensor Device by NOT APPLICABLE route. ??? Dexcom G6 Sensor Device 1 each [...] as backup forDexcom 100 each 3 ??? loratadine (Claritin) 10 mg Tablet [...] Reported on 07/03/2021) 30 tablet 0 ??? Dexcom G6 Music Rehabilitation Therapist Misc 1 each by Misc.(Non-Drug; Combo Route) route continuous. Use to continuously monitor blood glucose. 1 each 0 ??? ONE TOUCH DELICA 33 gauge Misc 1 each by Misc.(Non-Drug; Combo Route) route 6 times daily. 600 each 3 ??? glucagon, Human Recombinant, (GLUCAGON EMERGENCY KIT, HUMAN,) 1 mg Recon Soln Inject 1 mL into the muscle as needed (severe hypoglycemia with unconsciousness). (Patient not taking: Reported on 03/27/2021) 3 each 3 ??? Chromium Picolinate 200 mcg Tablet Take 200 mcg by mouth daily. No current facility-administered medications for this visit. [...] Whole 10/25/2006, 10/03/2007 Assessment and Recommendations: Title Recipient: beneficiary Provider: plan sponsor pharmacist [place] [facility] [place] Method of Contact: by telephone Drug Interactions Provided the patient with educational material regarding drug interactions: yes Patient Counseling Counseled the patient on the following: medication safety precautions education provided, drug interaction education provided to patient, doses and administration discussed, safe handling, storage, and disposal discussed, possible adverse effects and management discussed, lab monitoring and follow-up discussed, adherence and missed doses discussed, pharmacy contact information discussed, start medication discussed, timing of medications discussed Drug Medication Management Summary Topics discussed: medication safety precautions education provided, drug interaction education provided to patient, doses and administration discussed, safe handling, storage, and disposal discussed, possible adverse effects and management discussed, lab monitoring and follow-up discussed, adherence and missed doses discussed, pharmacy contact information discussed, start medication discussed, timing of medications discussed Number of health conditions: 5 Number of health conditions assessed: 5 Number of active medications: 25 Number of active medications assessed: 25 Number of medication therapy problems identified: 0 Number of medication therapy problems resolved: 0 Number of adverse drug events identified: 0 Time spent: 31-45 min Treatment Outcomes No data found in the [...] mitigation strategies, and interruptions in therapy: Yes Physical and Cognitive Assessment: Functional limitations identified: no Cognitive limitations identified: no Concern regarding orientation/memory: no Concern with reasoning/judgement: no Is patient a fall risk: no Other needed information: no Social Assessment: Does the patient have a primary rn intensive care unit? no Does the patient have an emergency contact on file: Yes Does patient need referral to licensed social worker: No Does patient need referral to advocacy group: No Home Health Assessment: Is the patient in a safe home environment? Yes Is the patient able to store their medication as directed? Yes Does the patient have a support network at home? Yes Reviewed potential home safety hazards with patient: Yes Economic Assessment: Patient is agreeable to medication copay: Yes Copay Amount: 50.73 Day Supply: 21 Date Needed: 07/11/21 Copay assistance required: no Therapy Assessment: Current Medication Dosing/Route/Frequency: Capecitabine 1500 mg PO BIDx 14 days of 21 day cycle Appropriate therapy: Yes Patient's Problems/Needs: Needs labs on 07/31 Expected outcome: slow disease progression Patient Goals: Hematology/Oncology related goals may include remission, palliative or hospice care, a bridge to future surgery, transplant, and radiation or infusion therapy. Patient's specific desired goal: 95% home chemotherapy medication adherence Measured by: refill calls Time-frame to meet goal: monthly Care Plan Reviewed and Approved by both Pharmacist and Patient: Yes Interventions (if applicable): not needed Additional care/services needed: no Educational information or adherence tools provided: No Additional equipment/supplies required: yes - recommended use of calendar to track cycles and days Monitoring requirements for prescribed medication: CBC/diff, CMP Patient Status and Counseling: Is the patient experiencing pain? no Relevant monitoring results reviewed for bone marrow suppression, opportunistic infection, tumor lysis syndrome, metabolic disturbance and end organ dysfunction yes - patient to report symptoms of fever, cough, infection, SOB, unusual bleedng to dining room host Pharmacist follow-up needed: Yes Patient Satisfaction with care/services provided: Yes Informed patient of specialty pharmacy services: Yes -Patient will be provided with welcome packet: Yes Date to be provided: 07/11/21 Delivery Method: mail -Patient will be provided with Rights & Responsibilities: Yes Date to be provided: 07/11/21 Delivery Method: mail -Patient is aware a licensed pharmacist is available 24 hours a day, 7 days a week to discuss medication-related questions or concerns: Yes -Patient verbalizes understanding of the common side effect profile of their medication. The patientis able to call 911 or seek urgent care if signs/symptoms of allergy or harmful adverse reactions occur: Yes Patient understands any changes to current drug regimen were made at the appointment and [facility]summary located at top of note) for provider review and follow up. [facility] RPH 07/11/21 4:30 PM documented in this encounter Plan of Treatment Upcoming Encounters Date Type Specialty Care Team Description 10/15/2022 Office Visit Hematology and Oncology Aldo Gaming MD [facility] HEMAT[facility]Y/[facility] DEPT. [place], [place] [address] (Wo rk) documented as of this encounter Visit Diagnoses Not on filedocumented in this encounter Care Teams Agriscience Technology Instructor Relationship Specialty Start Date End Date None PCP - General 06/11/21 04/02/22 None documented as of this encounter
--- OUTSIDE RECORDS SUMMARY | 2022-09-09 09:38 | XMS_ITS | Encounter Summary ---
:1955 Author Organization [facility] Address [facility] [place] [address] Care Team Providers Name Role Phone None Primary Care Provider Unavailable Encounter Details Date Type Department Care Team Description 07/31/2021 Office Visit Hematology/Oncology Celestina Gaming MD [facility] DR HEMATOLOGY/[place] [address] Malignant neoplasm of at [facility] Karli Leavitt APRN [address] [place] [address] DR HEMATOLOGY ONCOLOGY [place], [place] [id number] upper-outer quadrant [address] [place] [address] Drive of right breast in [place], [place] female, [place] [phone] receptor negative [phone] Social History Tobacco Use Types Packs/Day Years [...] Sign Reading Time Taken Comments Blood Pressure 117/69 07/31/2021 9:13 AM EDT Pulse 85 07/31/2021 9:13 AM EDT Temperature 36.5 ??C (97.7 ??F) 07/31/2021 9:13 AM EDT Respiratory Rate 20 07/31/2021 9:13 AM EDT Oxygen Saturation 99% 07/31/2021 9:13 AM EDT Inhaled Oxygen Concentration - - Weight 63.3 kg (139 lb 9.6 oz) 07/31/2021 9:13 AM EDT Height 171 cm (5' 7.32) 07/31/2021 9:13 AM EDT Body Mass Index 21.66 07/31/2021 9:13 AM EDT documented in this encounter Progress Notes Aldo Gaming MD - 07/31/2021 9:30 AM EDT Subjective: Patient ID: Tatyana Skelton is a 66 y.o. female. HPI The patient is a 66-year-old female seen in the [facility]. 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 ER was negative, TX was negative, HER-2 was negative. MRI scan [...] adjuvant Xeloda The patient returns to the [facility]. She completed neoadjuvant chemotherapy for her triple negative breast cancer and then underwent bilateral mastectomies. She still had substantial residual disease and has embarked on a course of adjuvant Xeloda. Her first cycle of 2 weeks on and 1 week off has now completed. She took 1500 mg twice a day. She had a couple of episodes of loose stool, 1 on day 7 and one on day 13. No frequent stools. No mouth sores. No skin changes. She continues to be active. She [place] out [place]. She did get a little sun rash on her nose and I cautioned her about sun exposure while on Xeloda. Patient Active Problem List Diagnosis Code ??? UC (ulcerative colitis) K51.90 ??? HTN (hypertension) I10 ??? Hypothyroidism E03.9 ??? History of diverticulitis Z87.19 ??? Malignant neoplasm of upper-outer quadrant of right breast in female, estrogen receptor [id number], Z17.1 Type 1 diabetes diagnosed as an adult Current Outpatient Medications: ??? CAPEcitabine (Xeloda) 500 mg tablet, Take 4 tablets (2,000 mg) by mouth 2 times daily for 14 days. Then take 7 days off for a 21 day cycle. Take within 30 minutes after eating. Call clinic before/prior to starting medication/script. Indications: metastatic breast carcinoma, ICD10 = C50.911, Disp: 112 tablet, Rfl: 5 ??? glucagon (Baqsimi) 3 mg/actuation [place], Non-Aerosol, 3 mg by Nasal route as needed (administer dose into one nostril, may repeat in 15 minutes if no response while awaiting Emergency assistance).,Disp: 2 each, Rfl: 1 ??? Blood-Glucose Meter,Continuous Misc, by [...] 90 tablet, Rfl: 3 ??? Dexcom G6 Neuropsychiatrist Misc, 1 each by Misc.(Non-Drug; Combo Route) [...] mg tablet, , Disp: , Rfl: ??? glucagon, Human Recombinant, 1 mg Recon [...] for Nausea. (Patient not taking: Reported on 07/31/2021), Disp: 30 tablet, Rfl: 1 ??? nystatin [...] other systems reviewed and are negative. BP 117/69 (Patient Position: Sitting) Pulse 85 Temp 36.5 ??C (97.7 ??F) Resp 20 Ht 171 cm (5' 7.32) Wt 63.3 kg (139 lb 9.6 oz) SpO2 99% BMI 21.66 kg/m?? Sclera white Mucous membranes moist Normal respiratory effort Heart regular rate Extremities no edema Skin no rash Neuro nonfocal White count 3.8, ANC 2.3, hemoglobin 11.9, platelets 140 Creatinine 0.8, alk phos 75 Assessment and Plan: 66-year-old female who has a right-sided breast cancer. She had a 2.5 cm triple negative breast cancer and opted for neoadjuvant chemotherapy. She completed 4 cycles of dose dense Adriamycin and cyclophosphamide and then 4 more doses of Taxol. She underwent bilateral mastectomies and unfortunately hadreally minimal impact on her disease burden. She is now embarked on a course of adjuvant Xeloda. She tolerated her first cycle well without significant toxicity. For her second cycle we will going to increase her dose to 1500 mg in the a.m. and 2000 mg in the p.m. for 14 days on and then 7 days off. I would like to see her a week off to see if we can increase her to 2000 mg twice daily. The patient is in agreement with the plan. We will see her back in 3 weeks when she is ready to start her next cycle. If she has toxicity with this cycle she will let us know documented in this encounter Plan of Treatment Upcoming Encounters Date Type Specialty Care Team Description 10/15/2022 Office Visit Hematology and Oncology Aldo Gaming MD [facility] HEMATOLOGY/ONCOL [facility] DEPT. [place], [place] [address] (Wo rk) documented as of this encounter Goals Goal Patient Goal Associated Recent Patient-Stated? Author Type Problems Progress DH Home Medication Patient No Ken ds, Compliance and Facing Kayla Lopez, Understanding Action Plan [facility] Note: Formatting of this note might be d ifferent from the original. Prevent / slow progression of disease as assessed by labs and scans in clinic every 3 months or more often when indicated documented as of this encounter Visit Diagnoses Diagnosis Malignant neoplasm of upper-outer quadra nt of right breast in female, estrogen receptor negative documented in this encounter Care Teams Silo Man Relationship Specialty Start Date End Date None PCP - General 06/11/21 04/02/22 None documented as of this encounter
--- OUTSIDE RECORDS SUMMARY | 2022-09-09 09:38 | XMS_ITS | Encounter Summary ---
:1955 Author Organization [facility] [place] [address] Care Team Providers Name Role Phone Bang Heath MD Primary Care Provider Encounter Details Date Type Department Care Team Description 04/30/2021 Notes Only Care Management [place] [address] Social History Tobacco Use Types Packs/Day [...] encounter Progress Notes Janina Batres MSW - 04/30/2021 11:59 PM EDT GABI/VENTURA met with pt and her in the multidisciplinary breast care clinic for a surgical consult. Pt recently completed neoadjuvant therapy for breast cancer. She met with Dr. Fernandez and has decided to have bilateral mastectomies/SLNB without breast reconstruction. Pt received her chemo treatm ents at [facility] and has met several times with VENTURA Kitchen at [facility]. Pt and her were concerned about the cost ($1400) of her DEXCOM sensor and transmitter devices because her insurance will not cover them. I suggested she speak a Medication Preventive Medicine Officer who may have information about assistance programs which would help with the cost. I gave pt two $100 VISA cards to help with her expenses. Pt will bring Ricarda Pierce several bills to request assistance from [employer]. Plan: [facility] will continue to follow pt to assess and assist with their psychosocial needs. [facility]/[place], [place] [id number] Pager #[phone] documented in this encounter Plan of Treatment Upcoming Encounters Date Type Specialty Care Team Description 10/15/2022 Office Visit Hematology and Oncology Aldo Gaming MD [facility] ER HEMATOLOGY/ONCOL [facility] DEPT. [place], [place] [address] (Wo rk) documented as of this encounter Visit Diagnoses Not on filedocumented in this encounter Care Teams Group Home Supervisor Relationship Specialty Start Date End Date Bang Heath MD PCP - General General Internal Medicine 01/18/[address] [place] [address] documented as of this encounter
--- OUTSIDE RECORDS SUMMARY | 2022-09-09 09:38 | XMS_ITS | Encounter Summary ---
:1955 Author Organization [facility] [place] [address] Care Team Providers Name Role Phone Bang Heath MD Primary Care Provider Encounter Details Date Type Department Care Team Description 05/22/2021 Telephone Endocrinology at [facility] [place] [address] Social History Tobacco Use Types Packs/Day [...] this encounter Miscellaneous Notes Telephone Encounter - Herbert Elias RN - 05/28/2021 3:47 PM EDT Secure chat to secretaries asking them to reach out to patient to schedule follow up per Dr Pack. Telephone Encounter - Herbert Elias, RN - 05/23/2021 11:19 AM EDT Discussed with Dr Pack that Jethroluz elena is requesting an addendum to patient's office note indicating she is taking insulin 3+ times per day. He says a provider can't add that without actually seeing thepatient and confirming. He asks that the patient be scheduled for follow up with someone soon to getthis taken care of. Telephone Encounter - Cece Mead I - 05/22/2021 2:53 PM EDT Patient called and stated that they need more information for [employer] from Dr. Pack. Patient stated maybe some medical records are needed. Please call [employer] . For Dexcom G6 Sensor documented in this encounter Plan of Treatment Upcoming Encounters Date Type Specialty Care Team Description 10/15/2022 Office Visit Hematology and Oncology Aldo Gaming MD [facility] ER HEMATOLOGY/[facility] DEPT. [place], [place] [address] (Wo rk) documented as of this encounter Visit Diagnoses Not on filedocumented in this encounter Care Teams Roaster Operator Relationship Specialty Start Date End Date Bang Heath MD PCP - General General Internal Medicine 01/18/19 [address] [place] [address] documented as of this encounter
--- OUTSIDE RECORDS SUMMARY | 2022-09-09 09:38 | XMS_ITS | Encounter Summary ---
:1955 Author Organization [facility] [place] [address] Care Team Providers Name Role Phone Bang Heath MD Primary Care Provider Encounter Details Date Type Department Care Team Description 04/16/2021 Patient Outreach Hematology and Oncology Rosalie [place], [place] [address] Social History Tobacco Use Types Packs/Day [...] Visit Hematology and Oncology Aldo Gaming MD [facility] ER HEMATOLOGY/ONCOL [facility] DEPT. [place], [place] [address] (Wo rk) documented as of this encounter Visit Diagnoses Not on filedocumented in this encounter Care Teams Graduate Teaching Associate Relationship Specialty Start Date End Date Bang Heath MD PCP - General General Internal Medicine 01/18/19 [address] [facility] [place] [address] documented as of this encounter
--- OUTSIDE RECORDS SUMMARY | 2022-09-09 09:38 | XMS_ITS | Encounter Summary ---
:1955 [place] [address] Care Team Providers Name Role Phone Bang Heath MD Primary Care Provider Encounter Details Date Type Department Care Team Description 05/15/2021 Telephone Endocrinology at [facility] [address] [facility] [place] [address] [place], [place] [id number] Social History Tobacco Use Types Packs/Day Years [...] Telephone Encounter - Bel Gonzalez RD - 05/15/2021 3:47 PM EDT Faxed Dexcom Order Form Certificate of Medical Necessity and visit notes to [facility]. Dr. Pack signed in absence of Dr. Callahan who is no longer practicing here. Confirmation received. Bel Gonzalez RD documented in this encounter Plan of Treatment Upcoming Encounters Date Type Specialty Care Team Description 10/15/2022 Office Visit Hematology and Oncology Aldo Gaming MD [facility] ER HEMATOLOGY/ONCOL [place] DEPT. [place], [place] [address] (Wo rk) documented as of this encounter Visit Diagnoses Not on filedocumented in this encounter Care Teams Broaching Machine Set Up Operator Relationship Specialty Start Date End Date Bang Heath MD PCP - General General Internal Medicine 01/18/19 [address] [place] [address] documented as of this encounter
--- OUTSIDE RECORDS SUMMARY | 2022-09-09 09:38 | XMS_ITS | Encounter Summary ---
:1955 Author Organization [facility] [place] [address] Care Team Providers Name Role Phone None Primary Care Provider Unavailable Encounter Details Date Type Department Care Team Description 08/21/2021 Office Visit Hematology/Oncology Celestina Gaming MD [facility] DR HEMATOLOGY/[place] [address] Malignant neoplasm of upper-outer quadra nt of right breast in female, estrogen receptor negative; at [facility] Karli Leavitt APRN [address] [place] [address] [place] [address] Malignant neoplasm of right breast in fe male, estrogen receptor negative, unspecified site of breast [address] [place] [phone] Social History Tobacco Use Types Packs/Day Years [...] Sign Reading Time Taken Comments Blood Pressure 136/64 08/21/2021 10:51 AM EDT Pulse 78 08/21/2021 10:51 AM EDT Temperature 36.4 ??C (97.6 ??F) 08/21/2021 10:51 AM EDT Respiratory Rate 20 08/21/2021 10:51 AM EDT Oxygen Saturation 98% 08/21/2021 10:51 AM EDT Inhaled Oxygen Concentration - - Weight 62.7 kg (138 lb 3.2 oz) 08/21/2021 10:51 AM EDT Height 171 cm (5' 7.32) 08/21/2021 10:51 AM EDT Body Mass Index 21.44 08/21/2021 10:51 AM EDT documented in this encounter Progress Notes Karli Leavitt, BROCK - 08/21/2021 11:00 AM EDT Subjective: Patient ID: Tatyana [...] ?? CT scan 07/25/13 ( [facility]) : Thickening of the [...] is a 65-year-old female seen in the [facility]. ?? 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 ER was negative, MS was negative, HER-2 was negative. MRI scan [...] 01/19 Start neoadjuvant Adriamycin and cyclophosphamide 01/16/2021 . 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 The plan for C3 is 2000 mg bid if she has tolerated C2. Today, Tatyana is feeling well. She felt a little less fatigue from this cycle. She did notice tingling in her fingertips and was bothered by pricking and tingling on the bottoms of her front feet which impeded her ability to hike. This is disappointing for her. She has been kayaking more. This started about D5 of Capecitabine and is now waning in the off week. She did not have redness or swelling or peeling on hands but did notice redness on balls of her feet. No skin peeling on feet. She did not notice this side effect in C1 (which was 1500mg bid). Tatyana is continuing with physical therapy to work out some tight areas on her right chest wall that includes a fleshy area along the incision line. . She reports incisions healed nicely. Today she demonstrates full ROM of both arms. She had some achiness in her right shoulder and right upper arm aftersurgery. It was intermittent, and lidocaine patches helped. Tatyana did not h ave nausea, but did report some minor mouth sores that lasted a few days. She had less diarrhea, and did not need to use Immodium. Tatyana denies shortness of breath, cough, fever, chills or chest pain. . Allergies Allergen Reactions ??? Contrast [Iodine And Iodide Containing Products] Nausea And Vomiting and Other (See Comments) Neck swelling ??? Lisinopril Other (See Comments) Caused a dry cough ??? Lactose Diarrhea Current Medications ??? levothyroxine (SYNTHROID) 175 mcg Tablet ??? CAPEcitabine (Xeloda) 500 mg tablet ??? glucagon (Baqsimi) 3 mg/actuation [place], Non-Aerosol ??? Blood-Glucose Meter,Continuous Misc ??? glucagon, Human Recombinant, 1 mg Recon Soln ??? Blood-Glucose Sensor Device ??? Lantus Solostar U-100 Insulin pen ??? sulfaSALAzine (Azulfidine) 500 mg Tablet ??? Dexcom G6 Sensor Device ??? Dexcom G6 Transmitter Device ??? BD Ultra-Fine Short Pen Needle 31 gauge x 5/16 Needle ??? OneTouch Verio test strips Strip ??? humaLOG KwikPen 100 unit/mL Insulin Pen ??? loratadine (Claritin) 10 mg Tablet ??? senna (Senokot) 8.6 mg Tablet ??? polyethylene glycol 3350 (MIRALAX ORAL) ??? LORazepam (Ativan) 0.5 mg Tablet ??? prochlorperazine (Compazine) 10 mg Tablet ??? ascorbic acid, vitamin C, (VITAMIN C) 500 mg Tablet, Chewable ??? vit A/vit C/vit E/zinc/copper (ICAPS AREDS ORAL) ??? metFORMIN (Glucophage) 500 mg Tablet ??? Dexcom G6 Master Yacht Misc ??? estradioL (ESTRACE) 0.01 % (0.1 mg/gram) Cream ??? nystatin (MYCOSTATIN) Cream ??? atorvastatin (LIPITOR) 40 mg Tablet ??? ONE TOUCH DELICA 33 gauge Misc ??? glucagon, Human Recombinant, (GLUCAGON EMERGENCY KIT, HUMAN,) 1 mg Recon Soln ??? losartan (COZAAR) 50 mg Tablet ??? [...] variations in blood sugar Genitourinary: Negative. Musculoskeletal: Negative for back pain. Skin: Denies bilateral mastectomy site incisional issues. Neurological: Negative. Hematological: Negative. Psychiatric/Behavioral: Negative. Objective: [...] normal. Thought Content: Thought content normal. BP 136/64 Pulse 78 Temp 36.4 ??C (97.6 ??F) (Temporal) Resp 20 Ht 171 cm (5' 7.32) Wt 62.7 kg (138 lb 3.2 oz) SpO2 98% BMI 21.44 kg/m?? LABS 08/21/21 WBC 3.19; ANC 1.87; H/H 11.9/36/5; PLT 132; BUN 11; C REAT 0.7; BILI 0.6; LFTs normal. 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 The plan for C3 is 2000 mg bid if she has tolerated C2. CBC and CMP were reviewed with Tatyana today and meet treatment parameters. Likely Capecitabine -induced toxicity in feet vs neuropathy. Plan: Continue C3 Capecitabine at same dose of C2 and reassess in 3 weeks. Discussed with Tatyana that if toxicity symptoms worsen, stop the drug and call clinic. Continue good oral hydration and exercise as tolerated. Continue communication with endocrine team for optimal blood sugar control. RTC 3 weeks for evaluation and planned C4 - dose to be determined. documented in this encounter Plan of Treatment Upcoming Encounters Date Type Specialty Care Team Description 10/15/2022 Office Visit Hematology and Oncology Aldo Gaming MD [facility] ER HEMATOLOGY/[facility] DEPT. [place], [place] [address] (Wo rk) documented as of this encounter Goals Goal Patient Goal Associated Recent Patient-Stated? Author Type Problems Progress DH Home Medication Patient No Ken ds, Compliance and Facing Kayla Lopez, Understanding Action Plan [facility] Note: Formatting of this note might be d ifferent from the original. Prevent / slow progression of disease as assessed by labs and scans in clinic every 3 months or more often when indicated documented as of this encounter Visit Diagnoses Diagnosis Malignant neoplasm of upper-outer quadra nt of right breast in female, estrogen receptor negative Malignant neoplasm of right breast in fe male, estrogen receptor negative, unspecified site of breast documented in this encounter Care Teams Company Marker Relationship Specialty Start Date End Date None PCP - General 06/11/21 04/02/22 None documented as of this encounter
--- OUTSIDE RECORDS SUMMARY | 2022-09-09 09:39 | XMS_ITS | Encounter Summary ---
:1955 Author Organization [facility] [place] [address] Care Team Providers Name Role Phone Bang Heath MD Primary Care Provider Encounter Details Date Type Department Care Team Description 04/15/2021 Telephone Hematology [place]cology [place] [address] Social History Tobacco Use Types Packs/Day [...] this encounter Miscellaneous Notes Telephone Encounter - Mely Brock - 04/15/2021 11:38 AM EDT Patient Name: Tatyana Skelton Patient : 1955 Attn: Image Library ([place]) From: [facility] - [phone] Fed-Ex# [id number] - Please overnight [x] Urgent [x] For Review [] Please Reply [] Please Recycle Pursuant to the Federal Mammography Quality Standards Act-Section 900.12(c), (4), (ii) Comments: Please send all Mammograms, Ultrasounds & Breast MRIs or any scan pertaining to breastcancer. (CD, Films, Electronic Transfer & Reports) to [facility], [place] [id number] If Questions call [phone] Notice of Confidentiality: The documents accompanying this FAX transmission cover contain information from [facility] that is confidential and privileged. The information is intended for the use of the individual or entity named on this transmittal sheet. If you are not the intended recipient, be aware that any disclosure, copying, distribution or use of the contents is prohibited. If you have received the FAX in error, please notify us by telephone (collect) immediately to permit us to arrange for theretrieval of the documents at no cost to you. documented in this encounter Plan of Treatment Upcoming Encounters Date Type Specialty Care Team Description 10/15/2022 Office Visit Hematology and Oncology Aldo Gaming MD [facility] [place] [place] [address] (Wo rk) documented as of this encounter Visit Diagnoses Not on filedocumented in this encounter Care Teams Rockboard Lather Relationship Specialty Start Date End Date Bang Heath MD PCP - General General Internal Medicine 01/18/19 [address] [place] [address] documented as of this encounter
--- OUTSIDE RECORDS SUMMARY | 2022-09-09 09:39 | XMS_ITS | Encounter Summary ---
:1955 Author Organization [facility] [place] [address] Care Team Providers Name Role Phone Bang Heath MD Primary Care Provider Encounter Details Date Type Department Care Team Description 03/13/2021 Notes Only Hematology/Oncology at Ricarda Pierce [facility] OFFICE OF CARE [address] [place] [phone] Social History Tobacco Use Types Packs/Day Years [...] documented as of this encounter Progress Notes Ricarda Pierce MSW - 03/13/2021 11:55 AM EDT Follow up with pt during her infusion visit today. Pt indicated she has her good days and less good days. 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 It is vacation week this week. She does what she feels up to. She has support. Pt did not identify any new needs at this time. Offered support. Reminded pt of [employer] availability and contact information. Will continue to follow for support and resources. documented in this encounter Plan of Treatment Upcoming Encounters Date Type Specialty Care Team Description 10/15/2022 Office Visit Hematology and Oncology Aldo Gaming MD [facility] HEMATOLOGY/ONCOL [facility] DEPT. [place], [place] [address] (Wo rk) documented as of this encounter Visit Diagnoses Not on filedocumented in this encounter Care Teams Hot Metal Mixer Operator Helper Relationship Specialty Start Date End Date Bang Heath MD PCP - General General Internal Medicine 01/18/19 [address] [facility] [place] [address] documented as of this encounter
--- OUTSIDE RECORDS SUMMARY | 2022-09-09 09:39 | XMS_ITS | Encounter Summary ---
:1955 Author Organization [place] [address] Care Team Providers Name Role Phone Bang Heath MD Primary Care Provider Reason for Visit Reason Onset Date Comments Follow-up 01/13/2021 Encounter Details Date Type Department Care Team Description 01/13/2021 Telephone Hematology/Oncology at Jayna Javed RN Follow-up [address] [phone] Social History Tobacco Use Types Packs/Day Years [...] this encounter Miscellaneous Notes Telephone Encounter - Jayna Woods RN - 01/13/2021 1:04 PM EST Spoke with pt to follow up on her electronic messages. Let her know we would be setting her up for telehealth with Dr. Gaming, she did not need computer. Told her to wear comfortable clothing and eat her normal diet and take normal medications prior to chemo on . Told her Lisbeth Leavitt RADIO INTERFERENCE SUPERVISOR would discuss claritin and ativan at her chemo teach visit. She was relieved and will contact us with anyother questions. documented in this encounter Plan of Treatment Upcoming Encounters Date Type Specialty Care Team Description 10/15/2022 Office Visit Hematology and Oncology Aldo Gaming MD [facility] [place] [place] [address] (Wo rk) documented as of this encounter Visit Diagnoses Not on filedocumented in this encounter Care Teams Day Care Provider Relationship Specialty Start Date End Date Bang Heath MD PCP - General General Internal Medicine 01/18/19 1 [address] [place] [address] documented as of this encounter
--- OUTSIDE RECORDS SUMMARY | 2022-09-09 09:39 | XMS_ITS | Encounter Summary ---
:1955 Author Organization [facility] Address [facility] [address] [place] [address] Care Team Providers Name Role Phone Bang Heath MD Primary Care Provider Encounter Details Date Type Department Care Team Description 03/27/2021 Office Visit Hematology/Oncology Celestina Gaming MD [facility] DR HEMATOLOGY/[place] [address] Malignant neoplasm of at [facility] Karli Leavitt APRN [address] [place] [address] DR HEMATOLOGY ONCOLOGY [place], [place] [id number] upper-outer quadrant [address] [place] [address] Drive of right breast in [place], [place] female, [place] [phone] receptor negative [phone] Social History Tobacco Use Types Packs/Day Years [...] Sign Reading Time Taken Comments Blood Pressure 129/79 03/27/2021 10:53 AM EDT Pulse 87 03/27/2021 10:53 AM EDT Temperature 36.3 ??C (97.3 ??F) 03/27/2021 10:53 AM EDT Respiratory Rate 18 03/27/2021 10:53 AM EDT Oxygen Saturation 97% 03/27/2021 10:53 AM EDT Inhaled Oxygen Concentration - - Weight 63.7 kg (140 lb 6.4 oz) 03/27/2021 10:53 AM EDT Height 171 cm (5' 7.32) 03/27/2021 10:53 AM EDT Body Mass Index 21.78 03/27/2021 10:53 AM EDT documented in this encounter Progress Notes Karli Leavitt APRN - 03/27/2021 11:00 AM EDT Subjective: Patient ID: Tatyana [...] Biopsies negative. ?? CT scan 07/25/13 ( [facility]) : Thickening of the wall [...] of the lobular type. ER was negative, [place] was negative, HER-2 was negative. MRI scan [...] 01/19 Start neoadjuvant Adriamycin and cyclophosphamide 01/16/2021 ?? 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 onc[facility] clinic in [facility] today for evaluation and C6D1 dd Taxol with Neulasta. The previous cycle was her first Taxol infusion. Today, Tatyana says she was more tired the day after chemo and in fact the 3 days after treatment she was quite fatigued. She had a little more trouble focusing on work this time. She also had low back cramps that circled around to her abdomen and radiated down her thighs, that were quite intense. She said Tylenol took the edge off every 6 hours. She is still having some challenges regulating her sugars, even late in the cycle. She has some guidance for insulin adjustment from her general car supervisor yard. Tatyana is happy that both her eyes and nose are not watery or runny now that she is off the A/C. Neuropathy in her fingers was worse immediately following treatment but improved as the week went on. Her fingernails have some darkening lines. Her toesare not numb. The second week she felt back to normal, and was again out doing her usual 5 mile hikes. She had her second COVID vaccine. Allergies Allergen Reactions ??? Contrast [Iodine And Iodide Containing Products] Nausea And Vomiting and Other (See Comments) Neck swelling ??? Lisinopril Other (See Comments) Caused a dry cough ??? Lactose Diarrhea Current Medications ??? Dexcom G6 Sensor Device ??? Dexcom G6 Transmitter Device ??? BD Ultra-Fine Short Pen Needle 31 gauge x 5/16 Needle ??? OneTouch Verio test strips Strip ??? Lantus Solostar U-100 Insulin pen ??? humaLOG KwikPen 100 unit/mL Insulin Pen ??? loratadine (Claritin) 10 mg Tablet ??? senna (Senokot) 8.6 mg Tablet ??? polyethylene glycol 3350 (MIRALAX ORAL) ??? LORazepam (Ativan) 0.5 mg Tablet ??? prochlorperazine (Compazine) 10 mg Tablet ??? ascorbic acid, vitamin C, (VITAMIN C) 500 mg Tablet, Chewable ??? vit A/vit C/vit E/zinc/copper (ICAPS AREDS ORAL) ??? metFORMIN (Glucophage) 500 mg Tablet ??? levothyroxine (SYNTHROID) 175 mcg Tablet ??? sulfaSALAzine (Azulfidine) 500 mg Tablet ??? Dexcom G6 Heel Coverer Misc ??? fluconazole (Diflucan) 150 mg Tablet ??? estradioL (ESTRACE) 0.01 % [...] Review of Systems Constitutional: Positive for fatigue. Persistent fatigue for 3 days after treatment HENT: Negative for mouth sores and rhinorrhea. Eyes: Negative for visual disturbance. Respiratory: Negative for cough and shortness of breath. Cardiovascular: Negative for chest pain and palpitations. Gastrointestinal: Negative for constipation, diarrhea, nausea and vomiting. Loose stools Endocrine: Increased variations in blood sugar Genitourinary: Negative. Musculoskeletal: Negative for back pain. Skin: Negative. Neurological: Negative. Hematological: Negative. Psychiatric/Behavioral: Negative. Objective: [...] Skin: General: Skin is warm and dry. Neurological: Mental Status: She is oriented to person, place, and time. Coordination: Coordination normal. Psychiatric: Mood and Affect: Mood normal. Thought Content: Thought content normal. BP 129/79 (Patient Position: Sitting) Pulse 87 Temp 36.3 ??C (97.3 ??F) (Temporal) Resp 18 Ht 171 cm (5' 7.32) Wt 63.7 kg (140 lb 6.4 oz) SpO2 97% BMI 21.78 kg/m?? 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 Tatyana returns to the [facility] onc[facility] clinic in [facility] today for evaluation and C6D1 Taxol with Neulasta. She experienced more fatigue and muscle aches following her first dose of Taxol. CBC and CMP were reviewed with Tatyana today and meet treatment parameters. Plan: Proceed with C6 Taxol today with ONPRO. Continue good oral hydration and exercise as tolerated. Continue communication with endocrine team for optimal blood sugar control. Prescription for ten Oxycodone 5 mg tablets prn/muscle aches not relieved by Tylenol. RTC in 2 weeks for dd C7 Taxol/ONPRO. documented in this encounter Plan of Treatment Upcoming Encounters Date Type Specialty Care Team Description 10/15/2022 Office Visit Hematology and Oncology Aldo Gaming MD [facility] ER HEMATOLOGY/ONCOL [place] DEPT. [place], [place] [address] (Wo rk) documented as of this encounter Visit Diagnoses Diagnosis Malignant neoplasm of upper-outer quadra nt of right breast in female, estrogen receptor negative documented in this encounter Care Teams Bariatric Physician Relationship Specialty Start Date End Date Bang Heath MD PCP - General General Internal Medicine 01/18/[address] [facility] [place] [address] documented as of this encounter
--- OUTSIDE RECORDS SUMMARY | 2022-09-09 09:39 | XMS_ITS | Encounter Summary ---
:1955 Author Organization [facility] [place] [address] Care Team Providers Name Role Phone Bang Heath MD Primary Care Provider Reason for Visit Reason Comments Chemotherapy Cycle 2 Day 1 AC Treatment/Therapy Plan Authorization (Routine) - Closed Specialty Diagnoses / Procedures Referred By Contact Refer red To Contact Hematology and Diagnoses Malignant neoplasm of upper-outer quadrant of right female breast Estrogen receptor negative status (ER-) Aldo Gaming MD [facility] Hem Onc Oncology Procedures TC PEGFILGRASTIM-JMDB, BIOSIMILAR, 0.5 MG, INJECTION TC APREPITANT, 1 MG, INJECTION TC PALONOSETRON HCL, 25MCG, INJECTION (ALOXI) TC DOXORUBICIN HCL, 10MG, INJECTION (ADRIAMYCIN) Q5108 pegfilgrastim-jmdb (Fulphila) [facility] Infusion J0185 aprepitant (CINVANTI) J2469 palonosetron (Aloxi) J9000 DOXOrubicin (Adriamycin) J9070 cyclophosphamide (CYTOXAN) NO AUTH NEEDED - J9267 PACLitaxeL (Taxol) [address] [facility] HEMATOLOGY/[place] [phone] Phone: Fax: Referral ID Status Reason Start Date Expiration Date Visits Requ ested Visits Authorized [id number] Closed 12/17/2020 12/21/2021 99 99 Encounter Details Date Type Department Care Team Description 01/30/2021 Infusion Hematology Oncology at [facility] of [address] [place] [address] Drive right breast in female, [facility], [place] [phone] estrogen receptor negative [phone] Social History Tobacco Use Types Packs/Day Years [...] documented as of this encounter Progress Notes Yuliet Watson RN - 01/30/2021 11:30 AM EST INFUSION THERAPY ADMINISTRATION NOTES DIAGNOSIS: Breast Cancer CYCLE #:2 Day 1 REASON FOR VISIT: AC Chemotherapy SUBJECTIVE Tatyana offers no complaints. OBJECTIVE LAB DATA: WBC 7.11, HGB 12.0, HCT 36.7, PLT 201, ANC 4.72, BUN 12, Cr 0.7 EF 67% on 01/14 IV ACCESS: Mediport accessed at [facility] for lab draw, blood return present and flushes easily. Pre administration: Chemotherapy orders independently verified for drug name, route, and dosage per patient's height, weight and BSA by Chivo Watson RN & [facility] onsite. REACTIONS (DESCRIPTION, TIME, INTERVENTION AND EFFECTIVENESS) none ASSESSMENT Tatyana was awake, alert and tolerated treatment well. PLAN Return to clinic tomorrow for [facility]. documented in this encounter Plan of Treatment Upcoming Encounters Date Type Specialty Care Team Description 10/15/2022 Office Visit Hematology and Oncology Aldo Gaming MD [facility] HEMATOLOGY/ONCOL [place] [address] (Wo rk) documented as of this encounter Visit Diagnoses Diagnosis Malignant neoplasm of upper-outer quadra nt of right breast in female, estrogen receptor negative documented in this encounter Administered Medications Inactive Administered Medications - up to 3 most recent administrations Medication Order MAR Action Action Date Dose Rate Site aprepitant (CINVANTI) injection Given 01/30/2021 12:28 PM EST 13 0 mg Emul 130 mg 130 mg, Intravenous, ONCE, 1 dose, On Kacy 01/30/21 at 1230, Alternative administration of IV push over 2 minutes is a recommendation from the supervisor accounting clerks. Administer prior to chemotherapy., Routine cyclophosphamide (CYTOXAN) 1,056 New Bag 01/30/2021 1:11 PM ES T 1,056 mg 606 mL/hr mg in sodium chloride 0.9% 302.8 mL infusion 1,056 mg (600 mg/m2/dose ? 1.76 m2 Treatment Plan BSA from Recorded weight), Intravenous, ONCE, 1 dose, On Kacy 01/30/21 at 1330, Administer over 30 Minutes, Warning Vesicant/Irritant Medication dexamethasone (Decadron) tablet 10 mg Given 01/30/2021 12:23 PM EST 10 mg 10 mg, Oral, ONCE, 1 dose, On Kacy 01/30/21 at 1230, Administer prior to chemotherapy, Routine DOXOrubicin (Adriamycin) injection 105.6 mg Given 01/30/2021 1:07 PM EST 105.6 mg 105.6 mg (60 mg/m2/dose ? 1.76 m2 Treatment Plan BSA from Recorded weight), Intravenous, ONCE, 1 dose, On Kacy 01/30/21 at 1330, Administer each syringe over a minimum of 3 minutes per syringe. Warning Vesicant/Irritant Medication heparin (pf) (porcine) (100 units/mL) Given 01/30/2021 1:[address] 500 Units flush 5 mL syringe 500 Units 500 Units, Intravenous, ONCE PRN, Starting on Kacy 01/30/21 at 1207, Until Kacy 01/30/21 at 1557, Line Care, Refer to Intravenous (IV) Procedure: Accessing Implanted Vascular Access Devices (764) procedure and/or Intravenous (IV) Job Aid: Adult Flushing & Catheter Care (0739) job aid for additional information regarding guidelines and administration., Routine LORazepam (Ativan) tablet 0.5 mg Given 01/30/2021 12:23 PM EST 0.5 mg 0.5 mg, Oral, ONCE, 1 dose, On Kacy 01/30/21 at 1230, Administer prior to chemotherapy, Routine palonosetron (Aloxi) (0.25 mg/mL) injection Given 02/2021 12:28 PM EST 0.25 mg 0.25 mg 0.25 mg, Intravenous, ONCE, 1 dose, On Kacy 01/30/21 at 1230, Administer over 30 seconds. Administer prior to chemotherapy, Routine sodium chloride 0.9 % (flush) flush 5-20 mL Given 01/30/2021 1:50 PM EST 20 mLs 5-20 mL, Intravenous, EVERY 1 MIN PRN, Starting on Kacy 01/30/21 at 1207, Until Kacy 01/30/21 at 1557, Line Care, Flush pertains to all indwelling lines. Flush per protocol found in the job aid using the link provided on this medication record. Refer to Intravenous (IV) Job Aid: Adult Flushing & Catheter Care (2494) job aid for additional information regarding guidelines and administration., Routine sodium chloride 0.9% infusion New Bag 01/30/2021 12:29 PM EST 1,000 mLs 1,000 mL, Intravenous, ONCE, 1 dose, On Kayc 01/30/21 at 1230 documented in this encounter Care Teams Senior Investment Analyst Relationship Specialty Start Date End Date Bang Heath MD PCP - General General Internal Medicine 01/18/19 [address] [place] [address] documented as of this encounter
--- OUTSIDE RECORDS SUMMARY | 2022-09-09 09:39 | XMS_ITS | Encounter Summary ---
:1955 Author Organization [facility] [place] [address] Care Team Providers Name Role Phone Bang Heath MD Primary Care Provider Reason for Referral Consultation (Routine) - Closed Specialty Diagnoses / Procedures Referred By Contact Refer red To Contact Breast Clinic / Breast Diagnoses Malignant neoplasm of upper-outer quadrant of right breast in female, estrogen receptor negative Karli Leavitt Kari M Baisden BROCK Elliott MD [address] [place] [address] [place], [place] [facility] [phone] [place] [phone] Fax: Referral ID Status Reason Start Date Expiration Date Visits V isits Requested Authorized [id number] Closed Consult, 04/11/2021 04/11/2022 1 1 Test & Treat Encounter Details Date Type Department Care Team Description 04/10/2021 Office Visit Hematology/Oncology Karli Leavitt Ma lignant neoplasm of at [facility] BROCK Elliott upper-outer quadrant [address] [place] [address] DR of right breast in [place], [place] HEMATOLOGY ONCO LOGY female, estrogen [phone] [place], [place] receptor negative [phone] (Wo rk) Social History Tobacco Use Types [...] Sign Reading Time Taken Comments Blood Pressure 122/75 04/10/2021 8:40 AM EDT Pulse 76 04/10/2021 8:40 AM EDT Temperature 36.1 ??C (96.9 ??F) 04/10/2021 8:40 AM EDT Respiratory Rate 20 04/10/2021 8:40 AM EDT Oxygen Saturation 99% 04/10/2021 8:40 AM EDT Inhaled Oxygen Concentration - - Weight 65.2 kg (143 lb 12.8 oz) 04/10/2021 8:40 AM EDT Height 171 cm (5' 7.32) 04/10/2021 8:40 AM EDT Body Mass Index 22.31 04/10/2021 8:40 AM EDT documented in this encounter Progress Notes Karli Leavitt APRN - 04/10/2021 9:00 AM EDT Subjective: Patient ID: Tatyana Skelton [...] is a 65-year-old female seen in the [facility]. ?? 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 ER was negative, [place] was negative, HER-2 was negative. 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 Tatyana reports doing a bit better after C6. The aches in her lower abdomen and legs lasted about 3 days after treatment. She also had some groin pain and minor pain across the shoulders. She said they felt like more flu-like type aches. She did not need to use the prescribed Oxycodone. She denies nausea. She has had some acid reflux and has found TUMS to be helpful. She generally moves her bowels daily. The stool urgency she experienced after the first cycle was not as bad. She was not incontinent. She did not use any anti-nausea medication. Tatyana has more fatigue the first few days after treatment and despite this she has been taking long walks. 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 She was exceedingly careful to insure social distancing and mask wearing. Tatyana denies fever, chills or shortness of breath. She had no illnesses since her last visit. She denies neuropathy. She did use antibiotic ointment on some hangnails that looked red. They are better today. She notes some of her fingernails are wavy. She also noticed lingering redness on her skin where her blood sugar monitor is attached. No rash, No erythema. She continues to work with her nursing admin to treat variations in blood sugar during chemotherapy. Tatyana requests a surgical referral with Dr. Fernandez. She asks me if she should changes plans for a vacation mid to late June [facility] children. My sense is that will be far enough from her surgery, and she is not planning reconstruction. However, I emphasized her surgeon will be part of that decision. COVID vaccines are complete. Allergies Allergen Reactions ??? Contrast [Iodine And Iodide Containing Products] Nausea And Vomiting and Other (See Comments) Neck swelling ??? Lisinopril Other (See Comments) Caused a dry cough ??? Lactose Diarrhea Current Medications ??? oxyCODONE (Roxicodone) 5 mg Tablet ??? Dexcom G6 Sensor Device [...] (Azulfidine) 500 mg Tablet ??? Dexcom G6 Inside Solar Sales Consultant Misc ??? fluconazole (Diflucan) 150 mg Tablet [...] Negative. Musculoskeletal: Negative for back pain. Skin: Red hangnails and pink patches on skin where BS monitor attaches. Neurological: Negative. Hematological: Negative. Psychiatric/Behavioral: Negative. Objective: [...] General: Skin is warm and dry. Comments: Pinkish skin where blood sugar monitors attached - unusual for her. Neurological: Mental Status: She is oriented to person, place, and time. Coordination: Coordination normal. Psychiatric: Mood and Affect: Mood normal. Thought Content: Thought content normal. BP 122/75 (Patient Position: Sitting) Pulse 76 Temp 36.1 ??C (96.9 ??F) (Temporal) Resp 20 Ht 171 cm (5' 7.32) Wt 65.2 kg (143 lb 12.8 oz) SpO2 99% BMI 22.31 kg/m?? 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 Tatyana returns to the [email or web address] onc[facility] clinic in [facility] today for evaluation and C7D1 Taxol with Neulasta. Tatyana experiences fatigue and Muscle aches as main toxicities. They are manageable. CBC and CMP were reviewed with Tatyana today and meet treatment parameters. Plan: Proceed with C7 Taxol today with ONPRO. Continue good oral hydration and exercise as tolerated. Continue communication with endocrine team for optimal blood sugar control. Referral to breast oncology/Dr. Fernandez. RTC in 2 weeks for dd C8 Taxol/ONPRO. documented in this encounter Plan of Treatment Upcoming Encounters Date Type Specialty Care Team Description 10/15/2022 Office Visit Hematology and Oncology Aldo Gaming MD [facility] ER HEMATOLOGY/ONCOL [place] DEPT. [place], [place] [address] (Wo rk) Scheduled Referrals Name [...] negative documented in this encounter Care Teams Solar Thermal Technician Relationship Specialty Start Date End Date Bang Heath MD PCP - General General Internal Medicine 01/18/[address] [place] [address] documented as of this encounter
--- OUTSIDE RECORDS SUMMARY | 2022-09-09 09:39 | XMS_ITS | Encounter Summary ---
:1955 Author Organization [facility] [address] Care Team Providers Name Role Phone Bang Heath MD Primary Care Provider Reason for Visit Reason Comments Chemotherapy fulphila Treatment/Therapy Plan Authorization (Routine) - Closed Specialty Diagnoses / Procedures Referred By Contact Refer red To Contact Hematology and Diagnoses Malignant neoplasm of upper-outer quadrant of right female breast Estrogen receptor negative status (ER-) Aldo Gaming MD [facility] Hem Onc Oncology Procedures TC PEGFILGRASTIM-JMDB, BIOSIMILAR, 0.5 MG, INJECTION TC APREPITANT, 1 MG, INJECTION TC PALONOSETRON HCL, 25MCG, INJECTION (ALOXI) TC DOXORUBICIN HCL, 10MG, INJECTION (ADRIAMYCIN) Q5108 pegfilgrastim-jmdb (Fulphila) [facility] Infusion J0185 aprepitant (CINVANTI) J2469 palonosetron (Aloxi) J9000 DOXOrubicin (Adriamycin) J9070 cyclophosphamide (CYTOXAN) NO AUTH NEEDED - [id number] PACLitaxeL (Taxol) 308 mg Alex [facility] HEMATOLOGY/[place] [phone] Phone: Fax: Referral ID Status Reason Start Date Expiration Date Visits Requ ested Visits Authorized [id number] Closed 12/17/2020 12/21/2021 99 99 Encounter Details Date Type Department Care Team Description 01/17/2021 Infusion Hematology Oncology at [facility] of [address] [place] [address] Drive right breast in [facility] [place] [phone] estrogen receptor negative [phone] Social History Tobacco Use Types Packs/Day Years [...] Sign Reading Time Taken Comments Blood Pressure 123/71 01/17/2021 11:08 AM EST Pulse 71 01/17/2021 11:08 AM EST Temperature 36.6 ??C (97.8 ??F) 01/17/2021 11:08 AM EST Respiratory Rate 20 01/17/2021 11:08 AM EST Oxygen Saturation 99% 01/17/2021 11:08 AM EST Inhaled Oxygen Concentration - - Weight 68 kg (150 lb) 01/17/2021 11:08 AM EST Height 170.2 cm (5' 7.01) 01/17/2021 11:08 AM EST Body Mass Index 23.49 01/17/2021 11:08 AM EST documented in this encounter Progress Notes Jayna Woods, ANDREW - 01/17/2021 11:00 AM EST INFUSION THERAPY ADMINISTRATION NOTES TIME TREATMENT STARTED: 111 TIME TREATMENT ENDED: 114 DIAGNOSIS: breast cancer PROTOCOL:na CYCLE #: 1 day 2 REASON FOR VISIT: fulphila SUBJECTIVE Tatyana Skelton offers no complaints. Pt taking claritin at home OBJECTIVE fulphila injection given in left abdomen REACTIONS (DESCRIPTION, TIME, INTERVENTION AND EFFECTIVENESS) none ASSESSMENT Tatyana Skelton was awake, alert and he tolerated treatment well. PLAN Return to clinic in 2 weeks documented in this encounter Plan of Treatment Upcoming Encounters Date Type Specialty Care Team Description 10/15/2022 Office Visit Hematology and Oncology Aldo Gaming MD [facility] ER HEMATOLOGY/ONCOL [place] DEPT. [place], [place] [address] (Wo rk) documented as of this encounter Visit Diagnoses Diagnosis Malignant neoplasm of upper-outer quadra nt of right breast in female, estrogen receptor negative documented in this encounter Administered Medications Inactive Administered Medications - up to 3 most recent administrations Medication Order MAR Action Action Date Dose Rate Site pegfilgrastim-jmdb Given 01/17/2021 11:42 AM 6 mg Abdominal Tissue (Fulphila) (6 mg/0.6 mL) EST injection syringe 6 mg 6 mg, Subcutaneous, ONCE, 1 dose, On Wed01/17/21 at 1130, Bring to room temperature 15-30 mins before administration. , Routine, This agent is restricted to outpatient use. Is this drug being given as an outpatient? Yes documented in this encounter Care Teams Dragline Mechanic Relationship Specialty Start Date End Date Bang Heath MD PCP - General General Internal Medicine 01/18/[address] [facility] 1 [place] [address] documented as of this encounter
--- OUTSIDE RECORDS SUMMARY | 2022-09-09 09:39 | XMS_ITS | Encounter Summary ---
:1955 Author Organization [facility] [place] [address] Care Team Providers Name Role Phone Bang Heath MD Primary Care Provider Encounter Details Date Type Department Care Team Description 03/13/2021 Office Visit Hematology/Oncology Karli Leavitt Ma lignant neoplasm of at [facility] A, MONUMENT CARVER upper-outer quadrant [address] of right breast in [place], [place] HEMATOLOGY ONCO LOGY female, estrogen [phone] [place], [place] receptor negative [phone] (Wo rk) Social History Tobacco Use Types [...] Sign Reading Time Taken Comments Blood Pressure 133/76 03/13/2021 10:52 AM EDT Pulse 80 03/13/2021 10:52 AM EDT Temperature 36.2 ??C (97.2 ??F) 03/13/2021 10:52 AM EDT Respiratory Rate 20 03/13/2021 10:52 AM EDT Oxygen Saturation 98% 03/13/2021 10:52 AM EDT Inhaled Oxygen Concentration - - Weight 65.6 kg (144 lb 9.6 oz) 03/13/2021 10:52 AM EDT Height 171 cm (5' 7.32) 03/13/2021 10:52 AM EDT Body Mass Index 22.43 03/13/2021 10:52 AM EDT documented in this encounter Progress Notes Karli Leavitt, BROCK - 03/13/2021 11:00 AM EDT Subjective: Patient ID: Tatyana [...] the [facility]. ?? 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 Tatyana did pretty well with C#4 A/C. She continues to be as active and hikes or walks usually 5 milesdaily once she gets beyond the first few days after treatment. She is eating well most of the time. There are a few episodes each cycle where she just can't eat. However she continues to drink at least 2 quarts of fluid daily. She did need to use a few Compazine for nausea which worked well. Tatyana also had a mouth sore and again had a lot of clear nasal drainage.No headache. Her bowels are working regularly. She has no difficulty voiding. She has consulted with endocrinology and made adjustments to her Lantus around the Dexamethasone days. She has mild fingertip tingling. She is due for her second COVID vaccine this week. She had no trouble with the first one. The ONPRO has been working well for her. Tatyana is also asking if she can see the pega developer as her eyes seem Fuzzier since she started therapy, but she also is due for an eye exam. Allergies Allergen Reactions ??? Contrast [Iodine And [...] (Azulfidine) 500 mg Tablet ??? Dexcom G6 Catalyst Concentration Operator Misc ??? fluconazole (Diflucan) 150 mg Tablet [...] Review of Systems Constitutional: Positive for fatigue. Mild for a few days HENT: Positive for mouth sores and rhinorrhea. One mouth sore and constant clear nasal drainage Eyes: Positive for visual disturbance. Eyes feel fuzzy Respiratory: Negative for cough and shortness of breath. Cardiovascular: Negative for chest pain and palpitations. Gastrointestinal: Positive for nausea. Negative for constipation, diarrhea and vomiting. Genitourinary: Negative. Musculoskeletal: Negative for back pain. [...] normal. Thought Content: Thought content normal. BP 133/76 (Patient Position: Sitting) Pulse 80 Temp 36.2 ??C (97.2 ??F) (Temporal) Resp 20 Ht 171 cm (5' 7.32) Wt 65.6 kg (144 lb 9.6 oz) SpO2 98% BMI 22.43 kg/m?? LABS 03/13/ WBC 5.05; ANC 3.47; H/H 9.6/ 30.0; PLT 150; BUN 9; CREAT 0.7; BILI 0.4; ALP 82; AST 16; ALT 26; CA++8.5. 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 Tatyana returns to the [facility] oncology clinic in [facility] today for evaluation and C5D1 Taxol with Neulasta. She tolerated C4 A/C with minimal toxicity. CBC and CMP were reviewed with Tatyana today and meet treatment parameters. Plan: Proceed with C5 Taxol today with ONPRO. Continue good oral hydration and exercise as tolerated. RTC in 2 weeks for dd C6 Taxol/ONPRO. documented in this encounter Plan of Treatment Upcoming Encounters Date Type Specialty Care Team Description 10/15/2022 Office Visit Hematology and Oncology Amberly, Aldo, MD [facility] ER [facility] [place] [place] [address] (Wo rk) documented as of this encounter Visit Diagnoses Diagnosis Malignant neoplasm of upper-outer quadra nt of right breast in female, estrogen receptor negative documented in this encounter Care Teams Balloon Sander Relationship Specialty Start Date End Date Bang Heath MD PCP - General General Internal Medicine 01/18/19 [address] [place] [address] documented as of this encounter
--- OUTSIDE RECORDS SUMMARY | 2022-09-09 09:39 | XMS_ITS | Encounter Summary ---
:1955 Author Organization [facility] Address [place] [address] Care Team Providers Name Role Phone aBng Heath MD Primary Care Provider Encounter Details Date Type Department Care Team Description 01/30/2021 Office Visit Hematology/Oncology Celestina Gaming MD [facility] DR HEMATOLOGY/[place] [address] Malignant neoplasm of at [facility] Karli Leavitt APRN [address] [place] [address] DR HEMATOLOGY ONCOLOGY [place], [place] [id number] upper-outer quadrant [address] [place] [address] Drive of right breast in [place], [place] female, [place] [phone] receptor negative [phone] Social History Tobacco Use Types Packs/Day Years [...] Sign Reading Time Taken Comments Blood Pressure 127/81 01/30/2021 11:09 AM EST Pulse 70 01/30/2021 11:09 AM EST Temperature 36.3 ??C (97.3 ??F) 01/30/2021 11:09 AM EST Respiratory Rate 20 01/30/2021 11:09 AM EST Oxygen Saturation 97% 01/30/2021 11:09 AM EST Inhaled Oxygen Concentration - - Weight 66.3 kg (146 lb 3.2 oz) 01/30/2021 11:09 AM EST Height 167.6 cm (5' 6) 01/30/2021 11:09 AM EST Body Mass Index 23.6 01/30/2021 11:09 AM EST documented in this encounter Progress Notes Karli Leavitt, BROCK - 01/30/2021 11:00 AM EST Subjective: Patient ID: Tatyana Skelton is a 65 y.o. female. Patient Active Problem List Diagnosis [...] Biopsies negative. ?? CT scan 07/25/13 ( [facility] [place] [facility]) : Thickening of the [...] is a 65-year-old female seen in the [facility]. ?? Right breast cancer 11/17 [...] Adriamycin and cyclophosphamide 01/16/2021 ?? 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 Tatyana received C1 neoadjuvant treatment with A/C D1 and Neulasta D2 on 01/16/21 and 01/17/21. Tatyana returns to the [facility] oncology clinic in [facility] todayfor evaluation and C2D1 A/C with Neulasta. Tatyana brings many questions today which I answered to her satisfaction. She felt pretty well throughC1. She had intermittent nausea but no vomiting in the first week post treatment She did get elevated blood sugars, which in turn may have triggered a vaginal yeast infection. She says this happens when her sugars are elevated. She has fluconazole and took a one-time dose. Blood sugars were the highest in first 3 days after treatment. Tatyana said she will contact her nursing tech regarding insulin adjustments while she is receivingchemotherapy. She says she was able to snowshoe and hike toward the end of the first week. This past week she felther energy was normal. She did have acute back pain last week for one day after snowshoeing and shoveling. This resolved after one day with heat, ice, Tylenol and lidocaine patches. Tatyana feels she is eating well and drinking a minimum, probably more, of 2 quarts of fluid daily. She denies taste changes. She did get sore teeth and mouth tenderness. She denies mouth sores. Salt water and baking soda gargles seemed to help. She did not have any trouble moving her bowels. Tatyana took Claritin the day before Neulasta and 3-4 days after and did not experience any bony aches. She did have intermittent headaches for a few days managed with Tylenol. She denies fevers, chills, shortness of breath, chest pain or numbness or tingling. Allergies Allergen Reactions ??? Contrast [Iodine And Iodide Containing Products] Nausea And Vomiting and Other (See Comments) Neck swelling ??? Lisinopril Other (See Comments) Caused a dry cough ??? Lactose Diarrhea Current Medications ??? loratadine (Claritin) 10 mg Tablet ??? [...] ??? sulfaSALAzine (Azulfidine) 500 mg Tablet ??? OneTouch Verio Strip ??? Dexcom G6 Transmitter Device ??? Dexcom G6 Sensor Device ??? Dexcom G6 Resident Engineer Misc ??? fluconazole (Diflucan) 150 mg Tablet ??? estradioL (ESTRACE) 0.01 % (0.1 mg/gram) Cream ??? nystatin (MYCOSTATIN) Cream ??? humaLOG KwikPen 100 unit/mL Insulin Pen ??? BD Ultra-Fine Short Pen Needle 31 gauge x 5/16 Needle ??? LANTUS SOLOSTAR U-100 INSULIN pen ??? atorvastatin (LIPITOR) 40 mg Tablet ??? UNIFINE PENTIPS 31 gauge x 3/16 Needle ??? ONE TOUCH DELICA 33 gauge Misc ??? losartan (COZAAR) 50 mg Tablet ??? Chromium Picolinate 200 mcg Tablet ??? multivitamin (THERAGRAN) Tablet ??? Calcium Carbonate-Vitamin D3 600 mg(1,500mg) -400 unit Capsule ??? atenolol (TENORMIN) 25 mg tablet ??? glucagon, Human Recombinant, (GLUCAGON EMERGENCY KIT, HUMAN,) 1 mg Recon Soln Social History Tobacco Use ??? Smoking status: Never Smoker ??? Smokeless tobacco: Never Used Substance Use Topics ??? Alcohol use: No ??? Drug use: No Review of Systems Constitutional: Positive for fatigue. Mild for a few days HENT: Positive for mouth sores. No sores, but mouth felt sore Eyes: Negative. Respiratory: Negative for cough and shortness of breath. Cardiovascular: Negative for chest pain and palpitations. Gastrointestinal: Positive for nausea. Negative for constipation, diarrhea and vomiting. Genitourinary: Negative. Musculoskeletal: Positive for back pain. Skin: Negative. Neurological: Negative. Hematological: Negative. Psychiatric/Behavioral: Negative. Objective: Physical Exam Vitals reviewed. Constitutional: Comments: Pleasant, well-nourished female in [place] HENT: Mouth/Throat: Mouth: Mucous [...] normal. Thought Content: Thought content normal. BP 127/81 (Patient Position: Sitting) Pulse 70 Temp 36.3 ??C (97.3 ??F) (Temporal) Resp 20 Ht 167.6 cm (5' 6) Wt 66.3 kg (146 lb 3.2 oz) SpO2 97% BMI 23.60 kg/m?? LABS 01/30/21 WBC 7.11; ANC 4.72; H/H 12.0/36.7; PLT 201; BUN 12; CREAT 0.7; BILI 0.3; ALP 85; AST 18; ALT 39; CA++ 8.6; GLU 110. 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 Tatyana received C1 neoadjuvant treatment with A/C D1 and Neulasta D2 on 01/16/21 and 01/17/21. Tatyana returns to the [facility] oncology clinic in [facility] todayfor evaluation and C2D1 A/C with Neulasta. She tolerated C1 well with minor GI toxicities. She had blood sugar fluctuations in the first week of treatment CBC and CMP were reviewed with Tatyana today and meet treatment parameters. Plan: Proceed with C2 A/C today and Neulasta support tomorrow. Tatyana turns 66 this week and we will see if ONPRO is approved under new insurance. RTC 2 weeks for ddC3 A/C. She will contact her nursing tech for blood sugar management. documented in this encounter Plan of Treatment Upcoming Encounters Date Type Specialty Care Team Description 10/15/2022 Office Visit Hematology and Oncology Aldo Gaming MD [facility] [place] [address] (Wo rk) documented as of this encounter Visit Diagnoses Diagnosis Malignant neoplasm of upper-outer quadra nt of right breast in female, estrogen receptor negative documented in this encounter Care Teams Maintenance Truck Driver Relationship Specialty Start Date End Date Bang Heath MD PCP - General General Internal Medicine 01/18/[address] [facility] 1 [place] [address] documented as of this encounter
--- OUTSIDE RECORDS SUMMARY | 2022-09-09 09:39 | XMS_ITS | Encounter Summary ---
:1955 Author Organization [facility] [address] Care Team Providers Name Role Phone Bang Heath MD Primary Care Provider Reason for Visit Reason Comments Injections Treatment/Therapy Plan Authorization (Routine) - Closed Specialty Diagnoses / Procedures Referred By Contact Refer red To Contact Hematology and Diagnoses Malignant neoplasm of upper-outer quadrant of right female breast Estrogen receptor negative status (ER-) Aldo Gaming MD [facility] Hem Onc Oncology Procedures TC PEGFILGRASTIM-JMDB, BIOSIMILAR, 0.5 MG, INJECTION TC APREPITANT, 1 MG, INJECTION TC PALONOSETRON HCL, 25MCG, INJECTION (ALOXI) TC DOXORUBICIN HCL, 10MG, INJECTION (ADRIAMYCIN) Q5108 pegfilgrastim-jmdb (Fulphila) [facility] Infusion J0185 aprepitant (CINVANTI) J2469 palonosetron (Aloxi) J9000 DOXOrubicin (Adriamycin) J9070 cyclophosphamide (CYTOXAN) NO AUTH NEEDED - J9267 PACLitaxeL (Taxol) 308 mg Alex [facility] HEMATOLOGY/[place] [phone] Phone: Fax: Referral ID Status Reason Start Date Expiration Date Visits Requ ested Visits Authorized [id number] Closed 12/17/2020 12/21/2021 99 99 Encounter Details Date Type Department Care Team Description 02/14/2021 Infusion Hematology Oncology at [facility] of [address] [place] [address] Drive [facility] [place] [phone] estrogen receptor negative [phone] Social History Tobacco Use Types Packs/Day Years [...] Sign Reading Time Taken Comments Blood Pressure 112/65 02/14/2021 1:36 PM EDT Pulse 67 02/14/2021 1:36 PM EDT Temperature 36.3 ??C (97.3 ??F) 02/14/2021 1:36 PM EDT Respiratory Rate 20 02/14/2021 1:36 PM EDT Oxygen Saturation 100% 02/14/2021 1:36 PM EDT Inhaled Oxygen Concentration - - Weight 67.1 kg (148 lb) 02/14/2021 1:36 PM EDT Height 167.6 cm (5' 5.98) 02/14/2021 1:36 PM EDT Body Mass Index 23.9 02/14/2021 1:36 PM EDT documented in this encounter Progress Notes Nabor Norwood RN - 02/14/2021 1:30 PM EDT Infusion Note Diagnosis: Breast CA Treatment: Fulphila Injection Neulasta 6mg injected in Right quad belly. Patient aware to call clinic with any questions or concerns. Plan: Return to clinic as scheduled. Nabor Norwood RN - 02/14/2021 1:30 PM EDT documented in this encounter Plan of Treatment Upcoming Encounters Date Type Specialty Care Team Description 10/15/2022 Office Visit Hematology and Oncology Aldo Gaming MD [facility] HEMATOLOGY/ONCOL [facility]PHINE DEPT. [place] [phone] (Wo rk) documented as of this encounter Visit Diagnoses Diagnosis Malignant neoplasm of upper-outer quadra nt of right breast in female, estrogen receptor negative documented in this encounter Administered Medications Inactive Administered Medications - up to 3 most recent administrations Medication Order MAR Action Action Date Dose Rate Site pegfilgrastim-jmdb Given 02/14/2021 1:47 PM 6 mg Right Lower Quadrant (Fulphila) (6 mg/0.6 mL) EDT injection syringe 6 mg 6 mg, Subcutaneous, ONCE, 1 dose, On Wed02/14/21 at 1400, Bring to room temperature 15-30 mins before administration. , Routine, This agent is restricted to outpatient use. Is this drug being given as an outpatient? Yes documented in this encounter Care Teams Rn Er Relationship Specialty Start Date End Date Bang Heath MD PCP - General General Internal Medicine 01/18/19 [address] [place] [address] documented as of this encounter
--- OUTSIDE RECORDS SUMMARY | 2022-09-09 09:39 | XMS_ITS | Encounter Summary ---
:1955 Author Organization [facility] [place] [address] Care Team Providers Name Role Phone Bang Heath MD Primary Care Provider Encounter Details Date Type Department Care Team Description 01/16/2021 TH Visit Hematology and Aldo Gaming M D Malignant neoplasm of (TeleHealth) Oncology at [facility] [address] of right breast in Drive HEMATOLOGY/ONCOLO female, estrogen [place], [place] DEPT. receptor negative [id number] [place] [address] [phone] Social History Tobacco Use Types Packs/Day Years [...] Sign Reading Time Taken Comments Blood Pressure 135/57 01/16/2021 8:09 AM EST Pulse 66 01/16/2021 8:09 AM EST Temperature 36.6 ??C (97.8 ??F) 01/16/2021 8:09 AM EST Respiratory Rate 16 01/16/2021 8:09 AM EST Oxygen Saturation 98% 01/16/2021 8:09 AM EST Inhaled Oxygen Concentration - - Weight 67 kg (147 lb 9.6 oz) 01/16/2021 8:09 AM EST Height 170.2 cm (5' 7.01) 01/16/2021 8:09 AM EST Body Mass Index 23.11 01/16/2021 8:09 AM EST documented in this encounter Progress Notes Aldo Gaming MD - 01/16/2021 8:00 AM EST Subjective: Patient ID: Tatyana Skelton is a 65 y.o. female. HPI The patient is a 65-year-old female seen in the [facility]. I am seeing her via a telehealth visit. I am in the [facility]. 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 ER was negative, AR was negative, HER-2 was negative. MRI scan [...] 01/19 Start neoadjuvant Adriamycin and cyclophosphamide 01/16/2021 Patient Active Problem List Diagnosis Code ??? UC (ulcerative colitis) K51.90 ??? HTN (hypertension) I10 ??? Hypothyroidism E03.9 ??? History of diverticulitis Z87.19 ??? Malignant neoplasm of upper-outer quadrant of right breast in female, estrogen receptor piaollulC10.411, Z17.1 Type 1 diabetes diagnosed as an adult Current Outpatient Medications: ??? ascorbic acid, vitamin C, (VITAMIN C) [...] daily., Disp: 90 tablet, Rfl: 3 ??? sulfaSALAzine (Azulfidine) 500 mg Tablet, TAKE FOUR TABLETS BY MOUTH TWICE A DAY, Disp: 720 tablet, Rfl: 3 ??? OneTouch Verio Strip, Check blood glucose 6 times daily and additionally as needed., Disp: 600 each, Rfl: 3 ??? Dexcom G6 Transmitter Device, 1 each by Misc.(Non-Drug; Combo Route) route continuous. Change every 90 days., Disp: 1 Device, Rfl: 3 ??? Dexcom G6 Sensor Device, 1 each by Misc.(Non-Drug; Combo Route) route continuous. To be changed every 10 days., Disp: 9 Device, Rfl: 3 ??? Dexcom G6 Laboratory Courier Misc, 1 each by Misc.(Non-Drug; Combo Route) route continuous. Use to continuously monitor blood glucose., Disp: 1 each, Rfl: 0 ??? fluconazole (Diflucan) 150 mg Tablet, 150 mg once a week., Disp: , Rfl: ??? estradioL (ESTRACE) 0.01 % (0.1 mg/gram) Cream, three times a week., Disp: , Rfl: ??? nystatin (MYCOSTATIN) Cream, , Disp: , Rfl: ??? humaLOG KwikPen 100 unit/mL Insulin Pen, Inject 1-6 Units subcutaneously 3 times daily (before meals). ICD 10 Code: E10.9, Disp: 15 mL, Rfl: 3 ??? BD Ultra-Fine Short Pen Needle 31 gauge x 5/16 Needle, Inject 1 each subcutaneously 4 times daily. ICD 10 Code: E10.9, Disp: 400 each, Rfl: 3 ??? LANTUS SOLOSTAR U-100 INSULIN pen, Inject 18 Units subcutaneously every morning., Disp: 15 mL, Rfl: 3 ??? atorvastatin (LIPITOR) 40 mg Tablet, Take 1 tablet by mouth daily., Disp: 90 tablet, Rfl: 3 ??? LORazepam (ATIVAN) 0.5 mg Tablet, , Disp: , Rfl: ??? UNIFINE PENTIPS 31 gauge x 3/16 Needle, USE 1 PEN NEEDLE FOUR TIMES A DAY TO INJECT INSULIN, Disp: , Rfl: 3 ??? ONE TOUCH DELICA 33 gauge Misc, 1 each by Misc.(Non-Drug; Combo Route) route 6 times daily., Disp: 600 each, Rfl: 3 ??? glucagon, Human Recombinant, (GLUCAGON EMERGENCY KIT, HUMAN,) 1 mg Recon Soln, Inject 1 mL into the muscle as needed (severe hypoglycemia with unconsciousness)., Disp: 3 each, Rfl: 3 ??? losartan (COZAAR) 50 [...] years with 3 children. 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 Nonsmoker ETOH: once a week Social Determinants of Health Financial Resource Strain: ??? Difficulty of Paying Living Expenses: Not on file Food Insecurity: ??? Worried About Running Out of Food in the Last Year: Not on file ??? Ran Out of Food in the Last Year: Not on file Transportation Needs: ??? Lack of Transportation (Medical): Not on file ??? Lack of Transportation (Non-Medical): Not on file Physical Activity: ??? Days of Exercise per Week: Not on file ??? Minutes of Exercise per Session: Not on file No family history on file. Breast cancer in a great grandmother Review [...] All other systems reviewed and are negative. Recent Results (from the past 24 hour(s)) CBC (with Diff) Result Value Ref Range WBC 4.51 RBC 4.02 Hemoglobin 12.1 Hematocrit 37.8 Platelets 169 Neutr Abs (ANC) 2.72 Comprehensive metabolic panel (non-fasting) Result Value Ref Range BUN 11 Creatinine 0.7 Sodium 141 Potassium 3.6 Chloride 104 CO2 28 Calcium 8.7 Total Protein 6.7 Albumin 3.8 Total Bilirubin 0.4 Alk Phos 60 AST 17 ALT 27 Assessment and Plan: 65-year-old female who has a new diagnosis of right-sided breast cancer. She had a 2.1 cm triple negative breast cancer and presents to initiate neoadjuvant chemotherapy. We reviewed her echocardiogram which shows intact cardiac function. She did have her port placed to facilitate chemotherapy. We reviewed the expected toxicity of chemotherapy. We reviewed the written materials that she had seen. She had no additional questions. She did ask if there would be any significant impact on her diabetes. Most likely the 10 mg of dexamethasone as a premedication may make her sugars high for 24 to 48 hours I do not anticipate much moresevere impact on her diabetes. She will get a chemotherapy teaching session today with our nurse practitioner. She will proceed to the infusion room to start her first cycle of Adriamycin and cyclophosphamide. We did review that her insurance company did not approve Neulasta on pro. She will need to return tomorrow afternoon for an injection of PEG filgrastim. She is willing to do that. We will see her back in 2 weeks which will be for cycle 2. documented in this encounter Plan of Treatment Upcoming Encounters Date Type Specialty Care Team Description 10/15/2022 Office Visit Hematology and Oncology Aldo Gaming MD [facility] HEMATOLOGY/[facility] DEPT. [place], [place] [address] (Wo rk) documented as of this encounter Procedures Procedure Name Priority Date/Time Associated Diagnosis Comme nts CBC (WITH DIFF) Routine 01/16/2021 Results for this procedure are i n the results section . COMPREHENSIVE METABOLIC Routine 01/16/2021 Resu lts for this PANEL (NON-FASTING) procedur e are in the results section . documented in this encounter Results Comprehensive metabolic panel (non-fasting) (01/16/2021) athologist Signature BUN 11 Creatinine 0.7 Sodium 141 Potassium 3.6 Chloride 104 CO2 28 Calcium 8.7 Total Protein 6.7 Albumin 3.8 Total Bilirubin 0.4 Alk Phos 60 AST 17 ALT 27 Specimen (Source) Anatomical Location Collection Method / Collectio n Time Received Time / Laterality Volume Blood 01/16/2021 Aldo Gaming MD CHEMISTRY ORDERABLES CBC (with Diff) (01/16/2021) athologist Signature WBC 4.51 RBC 4.02 Hemoglobin 12.1 Hematocrit 37.8 Platelets 169 Neutr Abs (ANC) 2.72 Specimen (Source) Anatomical Location Collection Method / Collectio n Time Received Time / Laterality Volume Blood 01/16/2021 Aldo Gaming MD HEMATOLOGY ORDERABLES documented in this encounter Visit Diagnoses Diagnosis Malignant neoplasm of upper-outer quadra nt of right breast in female, estrogen receptor negative documented in this encounter Care Teams Swimming Pool Installer Relationship Specialty Start Date End Date Bang Heath MD PCP - General General Internal Medicine 01/18/[address] [place] [address] documented as of this encounter
--- OUTSIDE RECORDS SUMMARY | 2022-09-09 09:39 | XMS_ITS | Encounter Summary ---
:1955 Author Organization [facility] [place] [address] Care Team Providers Name Role Phone Bang Heath MD Primary Care Provider Encounter Details Date Type Department Care Team Description 04/15/2021 Orders Only Hematology and Castellini, Malignant sancho plasm of Oncology at [facility] Mely Barker right breast in [facility] female, e [address] receptor negative, [place] [address] unspecified site of [phone] breast Social History Tobacco Use Types Packs/Day [...] Visit Hematology and Oncology Aldo Gaming MD [facility] HEMATOLOGY/[facility] DEPT. [place], [place] [address] (Wo rk) documented as of this encounter Visit Diagnoses Diagnosis Malignant neoplasm of right breast in fe male, estrogen receptor negative, unspecified site of breast documented in this encounter Care Teams Rn Telehealth Relationship Specialty Start Date End Date Bang Heath MD PCP - General General Internal Medicine 01/18/19 [address] [place] [address] documented as of this encounter
--- OUTSIDE RECORDS SUMMARY | 2022-09-09 09:39 | XMS_ITS | Encounter Summary ---
:1955 Author Organization [facility] [place] [address] Care Team Providers Name Role Phone Bang Heath MD Primary Care Provider Encounter Details Date Type Department Care Team Description 01/16/2021 Orders Only Hematology and Oncology at Aldo Black MD [facility] Rubin velazquez HEMATOLOGY/[place] [address] DEPT. [phone] [place], [place] [address] (Wo rk) Social History Tobacco [...] Hematology and Oncology Aldo Gaming MD [facility] HEMATOLOGY/ON[place], [place] [address] (Wo rk) documented as of this encounter Visit Diagnoses Not on filedocumented in this encounter Care Teams Community Artist Relationship Specialty Start Date End Date Bang Heath MD PCP - General General Internal Medicine 01/18/19 [address] [place] [address] documented as of this encounter
--- OUTSIDE RECORDS SUMMARY | 2022-09-09 09:39 | XMS_ITS | Encounter Summary ---
:1955 Author Organization [facility] [place] [address] Care Team Providers Name Role Phone Bang Heath MD Primary Care Provider Reason for Visit - Closed Specialty Diagnoses / Procedures Referred By Contact Refer red To Contact Procedures Bang Heath MD Film Library- Storage Only [address] [facility] 1 MR Breast [place], [place] [address] Referral ID Status Reason Start Date Expiration Date Visits Requ ested Visits Authorized [id number] Closed 04/15/2021 04/15/2022 1 1 Encounter Details Date Type Department Care Team Description 12/26/2020 Ancillary Procedure Radiology Library at Bang Heath MD [facility] [address] [address] [place], [place] [phone] (Wo rk) [phone] Social History Tobacco Use Types Packs/Day Years [...] and Oncology Aldo Gaming MD [facility] HEMATOLOGY/[facility] DEPT. [place], [place] [address] (Wo rk) documented as of this encounter Procedures Procedure Name Priority Date/Time Associated Diagnosis Comme nts FILM LIBRARY Routine 12/26/2020 12:00 AM Results for this STORAGE ONLY MR EST procedure ar e in BREAST the results section. documented in this encounter Results Film Library- Storage Only MR Breast (12/26/2020 12:00 AM EST) Specimen (Source) Anatomical Location Collection Method / Collectio n Time Received Time / Laterality Volume Narrative [facility] - 04/15/2021 2:28 PM EDT This exam is auto-finalizing. It's purpo se is for storage only. Bang Heath MD IMG FILM LIBRARY ORDERABLES Performing Organization Address City/State/ZIP Code Phon e Number [place], [place] documented in this encounter Visit Diagnoses Not on filedocumented in this encounter Care Teams Irrigationist Relationship Specialty Start Date End Date Bang Heath MD PCP - General General Internal Medicine 01/18/19 [address] [place], [place] [address] documented as of this encounter
--- OUTSIDE RECORDS SUMMARY | 2022-09-09 09:39 | XMS_ITS | Encounter Summary ---
:1955 Author Organization [facility] [place] [address] Care Team Providers Name Role Phone Bang Heath MD Primary Care Provider Reason for Visit Reason Comments Chemotherapy Cycle 1 Day 1 AC Treatment/Therapy Plan Authorization (Routine) - Closed Specialty Diagnoses / Procedures Referred By Contact Refer red To Contact Hematology and Diagnoses Malignant neoplasm of upper-outer quadrant of right female breast Estrogen receptor negative status (ER-) Aldo Gaming MD [facility] Hem Onc Oncology Procedures TC PEGFILGRASTIM-JMDB, BIOSIMILAR, 0.5 MG, INJECTION TC APREPITANT, 1 MG, INJECTION TC PALONOSETRON HCL, 25MCG, INJECTION (ALOXI) TC DOXORUBICIN HCL, 10MG, INJECTION (ADRIAMYCIN) Q5108 pegfilgrastim-jmdb (Fulphila) [facility] Infusion J0185 aprepitant (CINVANTI) J2469 palonosetron (Aloxi) J9000 DOXOrubicin (Adriamycin) J9070 cyclophosphamide (CYTOXAN) NO AUTH NEEDED - J9267 PACLitaxeL (Taxol) [address] Johnson [facility] HEMATOLOGY/[place] [phone] Phone: Fax: Referral ID Status Reason Start Date Expiration Date Visits Requ ested Visits Authorized [id number] Closed 12/17/2020 12/21/2021 99 99 Encounter Details Date Type Department Care Team Description 01/16/2021 Infusion Hematology Oncology at [facility] [place] of [address] [place] [address] Drive right breast in female[facility] [place] [phone] estrogen receptor negative [phone] Social History Tobacco Use Types Packs/Day Years [...] encounter Progress Notes Yuliet Watson RN - 01/16/2021 9:30 AM EST INFUSION THERAPY ADMINISTRATION NOTES DIAGNOSIS: Breast Cancer CYCLE #:1 Day 1 REASON FOR VISIT: AC Chemotherapy SUBJECTIVE Tatyana offers no complaints. She is anxious about starting treatment today. OBJECTIVE LAB DATA: WBC 4.51, HGB 12.1, HCT 37.8, PLT 169, ANC 2.72, BUN 11, Cr 0.7 EF 67% on 01/14 IV ACCESS: Mediport accessed at [facility] for lab draw, blood return present and flushes easily. Pre administration: Chemotherapy orders independently verified for drug name, route, and dosage per patient's height, weight and BSA by Chivo Watson, [facility] onsite. REACTIONS (DESCRIPTION, TIME, INTERVENTION AND EFFECTIVENESS) none ASSESSMENT Tatyana was awake, alert and tolerated treatment well. Pt. chemo teaching instructions included: During clinic hours (8am-5pm Wednesday-Wednesday): pt. can call [phone] questions or concerns. After clinic hours (5pm-8am Wednesday-Wednesday and weekends) pt can call [phone] and ask for the phone screener/oncologist production cell leader. Tatyana Skelton verbalized understanding of potential chemotherapy side effects and home care including but not limited to- handwashing to prevent infection, signs and symptoms of low blood counts (fever, fatigue, bleeding), to call with a fever of 100.4 or greater, any significant constipation/diarrhea, importance of nutrition and fluid intake (drinking at least 32-64 ounces of non-caffeinated beverages/day), mouth care. Tatyana Skelton verbalized understanding of how to take prescription medications given for home use after chemotherapy. PLAN Return to clinic per routine. documented in this encounter Plan of Treatment Upcoming Encounters Date Type Specialty Care Team Description 10/15/2022 Office Visit Hematology and Oncology Aldo Gaming MD [facility] HEMATOLOGY/[facility] DEPT. [place], [place] [address] (Wo rk) documented as of this encounter Visit Diagnoses Diagnosis Malignant neoplasm of upper-outer quadra nt of right breast in female, estrogen receptor negative documented in this encounter Administered Medications Inactive Administered Medications - up to 3 most recent administrations Medication Order MAR Action Action Date Dose Rate Site aprepitant (CINVANTI) injection Given 01/16/2021 9:55 AM EST 130 mg Emul 130 mg 130 mg, Intravenous, ONCE, 1 dose, On Kacy 01/16/21 at 1000, Alternative administration of IV push over 2 minutes is a recommendation from the plan consultant. Administer prior to chemotherapy., Routine cyclophosphamide (CYTOXAN) 1,056 New Bag 01/16/2021 10:[address] 1,056 mg 606 mL/hr mg in sodium chloride 0.9% 302.8 mL infusion 1,056 mg (600 mg/m2/dose ? 1.76 m2 Treatment Plan BSA from Recorded weight), Intravenous, ONCE, 1 dose, On Kacy 01/16/21 at 1100, Administer over 30 Minutes, Warning Vesicant/Irritant Medication dexamethasone (Decadron) tablet 10 mg Given 01/16/2021 9:51 AM EST 10 mg 10 mg, Oral, ONCE, 1 dose, On Kacy 01/16/21 at 1000, Administer prior to chemotherapy, Routine DOXOrubicin (Adriamycin) injection 100 m g Given 01/16/2021 10:38 AM EST 100 mg 100 mg, Intravenous, ONCE, 1 dose, On Kacy 01/16/21 at 1100, Administer each syringe over a minimum of 3 minutes per syringe. Warning Vesicant/Irritant Medication Dose Ordered = 105.6 mg (60 mg/m2). Pharmacist rounded dose per procedure. heparin (pf) (porcine) (100 units/mL) Given 01/16/2021 11:22 AM EST 500 Units flush 5 mL syringe 500 Units 500 Units, Intravenous, ONCE PRN, Starting on Kacy 01/16/21 at 0932, Until Kacy 01/16/21 at 1339, Line Care, Refer to Intravenous (IV) Procedure: Accessing Implanted Vascular Access Devices (654) procedure and/or Intravenous (IV) Job Aid: Adult Flushing & Catheter Care (1289) job aid for additional information regarding guidelines and administration., Routine LORazepam (Ativan) tablet 0.5 mg Given 01/16/2021 9:51 AM EST 0.5 mg 0.5 mg, Oral, ONCE, 1 dose, On Kacy 01/16/21 at 1000, Administer prior to chemotherapy, Routine palonosetron (Aloxi) (0.25 mg/mL) injection Given 12/30 9:57 AM EST 0.25 mg 0.25 mg 0.25 mg, Intravenous, ONCE, 1 dose, On Kacy 01/16/21 at 1000, Administer over 30 seconds. Administer prior to chemotherapy, Routine sodium chloride 0.9 % (flush) flush 5-20 mL Given 01/16/2021 11:22 AM EST 20 mLs 5-20 mL, Intravenous, EVERY 1 MIN PRN, Starting on Kacy 01/16/21 at 0932, Until Kacy 01/16/21 at 1339, Line Care, Flush pertains to all indwelling lines. Flush per protocol found in the job aid using the link provided on this medication record. Refer to Intravenous (IV) Job Aid: Adult Flushing & Catheter Care (9454) job aid for additional information regarding guidelines and administration., Routine sodium chloride 0.9% infusion New Bag 01/16/2021 9:49 AM EST 1,000 mLs 1,000 mL, Intravenous, ONCE, 1 dose, On Kacy 01/16/21 at 1000 documented in this encounter Care Teams Apple Press Operator Relationship Specialty Start Date End Date Bang Heath MD PCP - General General Internal Medicine 01/18/[address] [place] [address] documented as of this encounter
--- OUTSIDE RECORDS SUMMARY | 2022-09-09 09:39 | XMS_ITS | Encounter Summary ---
:1955 Author Organization [facility] [place] [address] Care Team Providers Name Role Phone Bang Heath MD Primary Care Provider Reason for Visit Reason Comments Chemotherapy Cycle 3; Day 1 Treatment/Therapy Plan Authorization (Routine) - Closed Specialty [...] HCL, 10MG, INJECTION (ADRIAMYCIN) Q5108 pegfilgrastim-jmdb (Fulphila) [facility] Infusion J0185 aprepitant (CINVANTI) J2469 palonosetron (Aloxi) J9000 DOXOrubicin (Adriamycin) J9070 cyclophosphamide (CYTOXAN) NO AUTH NEEDED - J9267 PACLitaxeL (Taxol) [address] Johnson [facility] HEMATOLOGY/[place] [phone] Phone: Fax: Referral ID Status Reason Start Date Expiration Date Visits Requ ested Visits Authorized [id number] Closed 12/17/2020 12/21/2021 99 99 Encounter Details Date Type Department Care Team Description 02/13/2021 Infusion Hematology Oncology at [facility] of [address] [place] [address] Drive right breast in female, [place] [phone] estrogen receptor negative [phone] Social History Tobacco Use Types Packs/Day Years [...] documented as of this encounter Progress Notes Ritu Camara RN - 02/13/2021 11:30 AM EDT INFUSION THERAPY ADMINISTRATION NOTES DIAGNOSIS: Breast Cancer CYCLE # 3; Day #1 REASON FOR VISIT: AC Chemotherapy SUBJECTIVE Tatyana Skelton offers no complaints. OBJECTIVE LAB DATA: WNL for tx today; reviewed by provider at visit. WBC: 7.24 Hgb: 11.5 Hct: 35.3 PLT: 187k ANC: 5.06 Creat: 0.7 EF 67% on 01/14 IV ACCESS: Port-a-cath in right chest, accessed by [facility] RN, + flush and blood return Pre administration: Chemotherapy orders independently verified for drug name, route, and dosage per patient's height, weight and BSA by Ritu Camara RN & onsite pharmacist. REACTIONS (DESCRIPTION, TIME, INTERVENTION AND EFFECTIVENESS) none ASSESSMENT Tatyana Skelton was awake, alert and tolerated treatment well. PLAN Return to clinic per routine. Will come tomorrow afternoon for Fulphila injection. documented in this encounter Plan of Treatment Upcoming Encounters Date Type Specialty Care Team Description 10/15/2022 Office Visit Hematology and Oncology Aldo Gaming MD [facility] HEMATOLOGY/[facility] DEPT. [place], [place] [address] (Wo rk) documented as of this encounter Visit Diagnoses Diagnosis Malignant neoplasm of upper-outer quadra nt of right breast in female, estrogen receptor negative documented in this encounter Administered Medications Inactive Administered Medications - up to 3 most recent administrations Medication Order MAR Action Action Date Dose Rate Site aprepitant (CINVANTI) injection Given 02/13/2021 12:03 PM EDT 13 0 mg Emul 130 mg 130 mg, Intravenous, ONCE, 1 dose, On Kacy 02/13/21 at 1215, Alternative administration of IV push over 2 minutes is a recommendation from the plating inspector. Administer prior to chemotherapy., Routine cyclophosphamide (CYTOXAN) New Bag 02/13/2021 12:57 PM EDT 1,056 m g 605.6 mL/hr 1,056 mg in sodium chloride 0.9% 302.8 mL infusion 1,056 mg (600 mg/m2/dose ? 1.76 m2 Treatment Plan BSA from Recorded weight), Intravenous, ONCE, 1 dose, On Kacy 02/13/21 at 1315, Administer over 30 Minutes, Warning Vesicant/Irritant Medication dexamethasone (Decadron) tablet 10 mg Given 02/13/2021 12:04 PM EDT 10 mg 10 mg, Oral, ONCE, 1 dose, On Kacy 02/13/21 at 1215, Administer prior to chemotherapy, Routine DOXOrubicin (Adriamycin) injection 105.6 Given 02/13/2021 12 :47 PM EDT 105.6 mg mg 105.6 mg (60 mg/m2/dose ? 1.76 m2 Treatment Plan BSA from Recorded weight), Intravenous, ONCE, 1 dose, On Kacy 02/13/21 at 1315, Administer each syringe over a minimum of 3 minutes per syringe. Warning Vesicant/Irritant Medication heparin (pf) (porcine) (100 units/mL) Given 02/13/2021 1:34 PM E DT 500 Units flush 5 mL syringe 500 Units 500 Units, Intravenous, ONCE PRN, Starting on Kacy 02/13/21 at 1153, Until Kacy 02/13/21 at 1543, Line Care, Refer to Intravenous (IV) Procedure: Accessing Implanted Vascular Access Devices (654) procedure and/or Intravenous (IV) Job Aid: Adult Flushing & Catheter Care (8060) job aid for additional information regarding guidelines and administration., Routine LORazepam (Ativan) tablet 0.5 mg Given 02/13/2021 12:04 PM EDT 0.5 mg 0.5 mg, Oral, ONCE, 1 dose, On Kacy 02/13/21 at 1215, Administer prior to chemotherapy, Routine palonosetron (Aloxi) (0.25 mg/mL) injection Given 01/27 12:03 PM EDT 0.25 mg 0.25 mg 0.25 mg, Intravenous, ONCE, 1 dose, On Kacy 02/13/21 at 1215, Administer over 30 seconds. Administer prior to chemotherapy, Routine sodium chloride 0.9 % (flush) flush 5-20 mL Given 02/13/2021 1:33 PM EDT 10 mLs 5-20 mL, Intravenous, EVERY 1 MIN PRN, Starting on Kacy 02/13/21 at 1153, Until Kacy 02/13/21 at 1543, Line Care, Flush pertains to all indwelling lines. Flush per protocol found in the job aid using the link provided on this medication record. Refer to Intravenous (IV) Job Aid: Adult Flushing & Catheter Care (0429) job aid for additional information regarding guidelines and administration., Routine sodium chloride 0.9% infusion New Bag 02/13/2021 11:54 AM EDT 1,000 mLs 1,000 mL, Intravenous, ONCE, 1 dose, On Kacy 02/13/21 at 1215 documented in this encounter Care Teams Body Coverer Relationship Specialty Start Date End Date Bang Heath MD PCP - General General Internal Medicine 01/18/19 [address] [place] [address] documented as of this encounter
--- OUTSIDE RECORDS SUMMARY | 2022-09-09 09:39 | XMS_ITS | Encounter Summary ---
:1955 Author Organization [facility] Address [address] [place] [address] Care Team Providers Name Role Phone Bang Heath MD Primary Care Provider Encounter Details Date Type Department Care Team Description 01/06/2021 Orders Only Hematology/Oncology at Aldo Gaming MD Malignant neoplasm of [facility] upper-outer quadrant [address] of right breast in [place], [place] HEMATOLOGY/ONCOLOG femal e, estrogen [phone] Y DEPT. receptor negative [phone] [place] [id number] Social History Tobacco Use Types Packs/Day Years [...] Visit Hematology and Oncology Aldo Gaming MD [facility] HEMATOLOGY/[facility] DEPT. [place], [place] [address] (Wo rk) documented as of this encounter Visit Diagnoses Diagnosis Malignant neoplasm of upper-outer quadra nt of right breast in female, estrogen receptor negative documented in this encounter Care Teams Reading Teacher Relationship Specialty Start Date End Date Bang Heath MD PCP - General General Internal Medicine 01/18/[address] [facility] [address] [place] [address] documented as of this encounter
--- OUTSIDE RECORDS SUMMARY | 2022-09-09 09:39 | XMS_ITS | Encounter Summary ---
:1955 Author Organization [facility] [place] [address] Care Team Providers Name Role Phone Bang Heath MD Primary Care Provider Reason for Visit Reason Onset Date Comments Other 2021 Encounter Details Date Type Department Care Team Description 2021 Telephone Hematology/Oncology at Jayna Javed RN Other [address] [phone] Social History Tobacco Use [...] this encounter Miscellaneous Notes Telephone Encounter - Jayan Woods RN - 2021 12:49 PM EST Pt calling saying she is signing up for covid vaccine and wants to know if hse has to do it at certain time during chemo cycle. Per Lisbeth Leavitt WASTE CHOPPER pt should just get it whenever she can. Pt agrees with plan. documented in this encounter Plan of Treatment Upcoming Encounters Date Type Specialty Care Team Description 10/15/2022 Office Visit Hematology and Oncology Aldo Gaming MD [facility] HEMATOLOGY/[facility] DEPT. [place], [place] [address] (Wo rk) documented as of this encounter Visit Diagnoses Not on filedocumented in this encounter Care Teams Staff Nurse Midwife Relationship Specialty Start Date End Date Bang Heath MD PCP - General General Internal Medicine 01/18/19 [address] [place] [address] documented as of this encounter
--- OUTSIDE RECORDS SUMMARY | 2022-09-09 09:39 | XMS_ITS | Encounter Summary ---
:1955 Author Organization [facility] [place] [address] Care Team Providers Name Role Phone Bang Heath MD Primary Care Provider Encounter Details Date Type Department Care Team Description 11/19/2020 Ancillary Procedure Radiology Library at Bang Heath MD [facility] [address] [address] [place], [place] [phone] (Wo rk) [phone] Social History Tobacco Use Types Packs/Day Years [...] [facility] HEMATOLOGY/[facility] DEPT. [place], [place] [address] (Wo rk) documented as of this encounter Procedures Procedure Name Priority Date/Time Associated Diagnosis Comme nts FILM Routine 11/19/2020 12:05 AM Results for this LIBRARY-STORAGE EST procedure ar e in ONLY US BREAST the results section. documented in this encounter Results Film Library Storage Only US Breast (11/19/2020 12:05 AM EST) Specimen (Source) Anatomical Location Collection Method / Collectio n Time Received Time / Laterality Volume Narrative ARMAND - 01/01/2021 4:04 PM EST This exam is auto-finalizing. It's purpo se is for storage only. Bang Heath MD IMG FILM LIBRARY ORDERABLES Performing Organization Address City/State/ZIP Code Phon e Number [place], [place] documented in this encounter Visit Diagnoses Not on filedocumented in this encounter Care Teams Dynamo Tender Relationship Specialty Start Date End Date Bang Heath MD PCP - General General Internal Medicine 01/18/19 [address] [place] [address] documented as of this encounter
--- OUTSIDE RECORDS SUMMARY | 2022-09-09 09:39 | XMS_ITS | Encounter Summary ---
:1955 Author Organization [facility] [place] [address] Care Team Providers Name Role Phone Bang Heath MD Primary Care Provider Reason for Visit Reason Comments Other fulphila Treatment/Therapy Plan Authorization (Routine) - Closed Specialty Diagnoses / Procedures Referred By Contact Refer red To Contact Hematology and Diagnoses Malignant neoplasm of upper-outer quadrant of right female breast Estrogen receptor negative status (ER-) Aldo Gaming MD [facility] Hem Onc Oncology Procedures TC PEGFILGRASTIM-JMDB, BIOSIMILAR, 0.5 MG, INJECTION TC APREPITANT, 1 MG, INJECTION TC PALONOSETRON HCL, 25MCG, INJECTION (ALOXI) TC DOXORUBICIN HCL, 10MG, INJECTION (ADRIAMYCIN) Q5108 pegfilgrastim-jmdb (Fulphila) [facility] Infusion J0185 aprepitant (CINVANTI) J2469 palonosetron (Aloxi) J9000 DOXOrubicin (Adriamycin) J9070 cyclophosphamide (CYTOXAN) NO AUTH NEEDED - J9267 PACLitaxeL (Taxol) 308 mg [facility] HEMATOLOGY/[place] [phone] Phone: Fax: Referral ID Status Reason Start Date Expiration Date Visits Requ ested Visits Authorized [id number] Closed 12/17/2020 12/21/2021 99 99 Encounter Details Date Type Department Care Team Description 01/31/2021 Infusion [facility] of [address] [place] [address] Drive right breast in female, [facility] [place] [phone] estrogen receptor negative [phone] Social History Tobacco Use Types Packs/Day Years [...] Sign Reading Time Taken Comments Blood Pressure 122/63 01/31/2021 10:12 AM EST Pulse 60 01/31/2021 10:12 AM EST Temperature 36.1 ??C (96.9 ??F) 01/31/2021 10:12 AM EST Respiratory Rate 20 01/31/2021 10:12 AM EST Oxygen Saturation 100% 01/31/2021 10:12 AM EST Inhaled Oxygen Concentration - - Weight - - Height - - Body Mass Index - - documented in this encounter Progress Notes Jayna Woods RN - 01/31/2021 10:00 AM EST INFUSION THERAPY ADMINISTRATION NOTES TIME TREATMENT STARTED: 1000 TIME TREATMENT ENDED: 1024 DIAGNOSIS: breast cancer PROTOCOL:na CYCLE #: 2 day 2 REASON FOR VISIT: Fulphila SUBJECTIVE Tatyana Barker Costa offers no complaints. OBJECTIVE REACTIONS (DESCRIPTION, TIME, INTERVENTION AND EFFECTIVENESS) none ASSESSMENT Tatyana Barker Costa was awake, alert and he tolerated treatment well. PLAN Return to clinic per routine. documented in this encounter Plan of Treatment Upcoming Encounters Date Type Specialty Care Team Description 10/15/2022 Office Visit Hematology and Oncology Aldo Gaming MD [facility] HEMATOLOGY/[facility] DEPT. [place], [place] [address] (Wo rk) documented as of this encounter Visit Diagnoses Diagnosis Malignant neoplasm of upper-outer quadra nt of right breast in female, estrogen receptor negative documented in this encounter Administered Medications Inactive Administered Medications - up to 3 most recent administrations Medication Order MAR Action Action Date Dose Rate Site pegfilgrastim-jmdb Given 01/31/2021 10:23 AM 6 mg Abdominal Tissue (Fulphila) (6 mg/0.6 mL) EST injection syringe 6 mg 6 mg, Subcutaneous, ONCE, 1 dose, On Wed01/31/21 at 1030, Bring to room temperature 15-30 mins before administration. , Routine, This agent is restricted to outpatient use. Is this drug being given as an outpatient? Yes documented in this encounter Care Teams Spanish Translator Relationship Specialty Start Date End Date Bang Heath MD PCP - General General Internal Medicine 01/18/19 [address] [place] [address] documented as of this encounter
--- OUTSIDE RECORDS SUMMARY | 2022-09-09 09:39 | XMS_ITS | Encounter Summary ---
:1955 Author Organization [facility] [place] [address] Care Team Providers Name Role Phone Bang Heath MD Primary Care Provider Reason for Visit Reason Onset Date Comments Medication Refill 02/17/2021 Encounter Details Date Type Department Care Team Description 02/17/2021 Refill Endocrinology at [facility] Tatyana Lea MD [facility] [place] [phone] ENDOCRINOLOGY DEPT [phone] [place], [place] [address] (Wo rk) Social History Tobacco [...] Visit Hematology and Oncology Aldo Gaming MD [facility] ER HEMATOLOGY/[facility] DEPT. [place], [place] [address] (Wo rk) documented as of this encounter Visit Diagnoses Not on filedocumented in this encounter Care Teams Music Engineer Relationship Specialty Start Date End Date Bang Heath MD PCP - General General Internal Medicine 01/18/19 1 [address] [place] [address] documented as of this encounter
--- OUTSIDE RECORDS SUMMARY | 2022-09-09 09:39 | XMS_ITS | Encounter Summary ---
:1955 Author Organization [facility] [place] [address] Care Team Providers Name Role Phone Bang Heath MD Primary Care Provider Encounter Details Date Type Department Care Team Description 11/19/2020 Ancillary Procedure Radiology Library at Bang Heath MD [facility] [address] [address] [place], [place] [phone] (Wo rk) [phone] Social History Tobacco Use Types Packs/Day Years [...] and Oncology Aldo Gaming MD [facility] HEMATOLOGY/[facility] DEPT. [place], [place] [address] (Wo rk) documented as of this encounter Procedures Procedure Name Priority Date/Time Associated Diagnosis Comme nts FILM LIBRARY Routine 11/19/2020 12:00 AM Results for this STORAGE ONLY MAMMO EST procedure are in the results section. documented in this encounter Results Film Library- Storage Only Mammo (11/19/2020 12:00 AM EST) Specimen (Source) Anatomical Location Collection Method / Collectio n Time Received Time / Laterality Volume Narrative ARMAND - 01/01/2021 4:03 PM EST This exam is auto-finalizing. It's purpo se is for storage only. Bang Heath MD IMG FILM LIBRARY ORDERABLES Performing Organization Address City/State/ZIP Code Phon e Number [place], [place] documented in this encounter Visit Diagnoses Not on filedocumented in this encounter Care Teams Fryer Line Helper Relationship Specialty Start Date End Date Bang Heath MD PCP - General General Internal Medicine 01/18/19 [address] [place] [address] documented as of this encounter
--- OUTSIDE RECORDS SUMMARY | 2022-09-09 09:39 | XMS_ITS | Encounter Summary ---
:1955 Author Organization [facility] [place] [address] Care Team Providers Name Role Phone Bang Heath MD Primary Care Provider Reason for Visit Reason Comments Chemotherapy Cycle 7 Day 1 Paclitaxel Treatment/Therapy Plan Authorization (Routine) - Closed Specialty [...] HCL, 10MG, INJECTION (ADRIAMYCIN) Q5108 pegfilgrastim-jmdb (Fulphila) [facility] Infusion J0185 aprepitant (CINVANTI) J2469 palonosetron (Aloxi) J9000 DOXOrubicin (Adriamycin) J9070 cyclophosphamide (CYTOXAN) NO AUTH NEEDED - J9267 PACLitaxeL (Taxol) [address] Johnson [facility] HEMATOLOGY/[place] [phone] Phone: Fax: Referral ID Status Reason Start Date Expiration Date Visits Requ ested Visits Authorized [id number] Closed 12/17/2020 12/21/2021 99 99 Encounter Details Date Type Department Care Team Description 04/10/2021 Infusion Hematology Oncology at [facility] of [address] [place] [address] Drive right breast in female[facility] [place] [phone] estrogen receptor negative [phone] Social History Tobacco Use Types Packs/Day Years [...] encounter Progress Notes Yuliet Watson RN - 04/10/2021 9:30 AM EDT INFUSION THERAPY ADMINISTRATION NOTES DIAGNOSIS: Breast Cancer CYCLE #:7 Day 1 REASON FOR VISIT: Paclitaxel Chemotherapy & Onpro SUBJECTIVE Tatyana offers no complaints. Seen by KNITTING TESTER in clinic. OBJECTIVE LAB DATA: Done today at [facility]- WBC 7.37, Hgb 10.5, Hct 33.4, PLT 186, ANC 5.84, BUN 10, Cr 0.7 EF 67% on 01/14 IV ACCESS: Mediport accessed at [facility] for lab draw, blood return present and flushes easily. Port flushed with 20cc NS and 500 units Heparin then de-accessed after completion of treatment. Pre administration: Chemotherapy orders independently verified for drug name, route, and dosage per patient's height, weight and BSA by Yuliet Watson, [facility] onsite. REACTIONS (DESCRIPTION, TIME, INTERVENTION AND EFFECTIVENESS) none ASSESSMENT Tatyana was awake, alert and tolerated treatment well. Neulasta Onpro applied to GRAHAM. Due to deploy [id number] on 04/11, instructed to remove at 1700 PM when light is solid green. PLAN Return to clinic as scheduled. documented in this encounter Plan of Treatment Upcoming Encounters Date Type Specialty Care Team Description 10/15/2022 Office Visit Hematology and Oncology Aldo Gaming MD [facility] ER HEMATOLOGY/[facility] DEPT. 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, estrogen receptor negative documented in this encounter Administered Medications Inactive Administered Medications - up to 3 most recent administrations Medication Order MAR Action Action Date Dose Rate Site dexamethasone (Decadron) injection Given 04/10/2021 9:42 AM EDT 10 mg 10 mg 10 mg, Intravenous, ONCE, 1 dose, On Kacy 04/10/21 at 0945, Administer 30 minutes prior to PACLitaxel diphenhydrAMINE (Benadryl) capsule 50 mg Given 04/10/2021 9:37 AM EDT 50 mg 50 mg, Oral, ONCE, 1 dose, On Kacy 04/10/21 at 0945, Administer 30 minutes prior to PACLitaxel, Routine famotidine (Pepcid) (10 mg/mL) injection 20 mg Given 04/10/2021 9:44 AM EDT 20 mg 20 mg, Intravenous, ONCE, 1 dose, On Kacy 04/10/21 at 0945, Administer 30 minutes prior to PACLitaxel heparin (pf) (porcine) (100 units/mL) Given 04/10/2021 1:30 PM E DT 500 Units flush 5 mL syringe 500 Units 500 Units, Intravenous, ONCE PRN, Starting on Kacy 04/10/21 at 0923, Until Kacy 04/10/21 at 1617, Line Care, Refer to Intravenous (IV) Procedure: Accessing Implanted Vascular Access Devices (484) procedure and/or Intravenous (IV) Job Aid: Adult Flushing & Catheter Care (2725) job aid for additional information regarding guidelines and administration., Routine ondansetron (Zofran) tablet 8 mg Given 04/10/2021 9:37 AM EDT 8 mg 8 mg, Oral, ONCE, 1 dose, On Kacy 04/10/21 at 0945, Administer prior to chemotherapy, Routine PACLitaxeL (Taxol) 308 mg in New Bag 04/10/2021 10:15 AM EDT 308 m g 183.8 mL/hr sodium chloride 0.9% Non-PVC 551.3333 mL infusion 308 mg (175 mg/m2/dose ? 1.76 m2 Treatment Plan BSA from Recorded weight), Intravenous, ONCE, 1 dose, On Kacy 04/10/21 at 1045, Administer over 3 Hours, Warning Vesicant/Irritant Medication pegfilgrastim (Neulasta Onpro) (6 mg/0.6 mL) Given 04/10/2021 1: 03 PM EDT 6 mg injection kit 6 mg 6 mg, Subcutaneous, ONCE, 1 dose, On Kacy 04/10/21 at 0945, Allow the prefilled syringe co-packaged with the on-body injector to reach room temperature at least 30 minutes prior to administration., Routine, This agent is restricted to outpatient use. Is this drug being given as an outpatient? Yes sodium chloride 0.9 % (flush) flush 5-20 mL Given 04/10/2021 1:30 PM EDT 20 mLs 5-20 mL, Intravenous, EVERY 1 MIN PRN, Starting on Kacy 04/10/21 at 0923, Until Kacy 04/10/21 at 1617, Line Care, Flush pertains to all indwelling lines. Flush per protocol found in the job aid using the link provided on this medication record. Refer to Intravenous (IV) Job Aid: Adult Flushing & Catheter Care (6929) job aid for additional information regarding guidelines and administration., Routine sodium chloride 0.9% infusion New Bag 04/10/2021 9:44 AM EDT 1,000 mLs 300 mL/hr 1,000 mL, Intravenous, ONCE, 1 dose, On Kacy 04/10/21 at 0945 documented in this encounter Care Teams Filling Station Attendant Relationship Specialty Start Date End Date Bang Heath MD PCP - General General Internal Medicine 01/18/19 [address] [place] [address] documented as of this encounter
--- OUTSIDE RECORDS SUMMARY | 2022-09-09 09:39 | XMS_ITS | Encounter Summary ---
:1955 Author Organization [facility] [place] [address] Care Team Providers Name Role Phone Bang Heath MD Primary Care Provider Reason for Referral Diagnostic Test (Routine) - Closed Specialty Diagnoses / Procedures Referred By Contact Refer red To Contact Cardiology Diagnoses Malignant neoplasm of upper-outer quadrant of right breast in female, estrogen receptor negative Aldo Gaming MD Procedures Echocardiogram Transthoracic([facility]) [facility] DR HEMATOLOGY/[place] [address] Referral ID Status Reason Start Date Expiration Date Visits V isits Requested Authorized [id number] Closed Specialty 01/02/2021 01/02/2022 1 1 Service Requested Reason for Visit Consultation ([facility]) - Closed Specialty Diagnoses / Procedures Referred By Contact Refer red To Contact Hematology and Diagnoses Malignant neoplasm of unspecified site of right female breast MALIGNANT NEOPLASM OF UNSPECIFIED SITE OF RIGHT FEMALE BREAST Luann Epps Sergey, Oncology Procedures TREATMENT OPTIONS Cameron Pak MD MD [address] [place] [address] [address] [place], [place] [phone] Fax: Referral ID Status Reason Start Date Expiration Date Visits Requ ested Visits Authorized [id number] Closed 01/01/2021 01/01/2022 1 1 Encounter Details Date Type Department Care Team Description 01/02/2021 Office Visit Hematology/Oncology Celestina Gaming MD [facility] DR HEMATOLOGY/[place] [address] Malignant neoplasm of at [facility] Karli Leavitt APRN [address] HEMATOLOGY [place]COLOGY [place], [place] [id number] upper-outer quadrant [address] of right breast in [place], [place] female, [place] [id number] receptor negative [phone] Social History Tobacco Use Types Packs/Day Years [...] Sign Reading Time Taken Comments Blood Pressure 141/69 01/02/2021 12:58 PM EST Pulse 71 01/02/2021 12:58 PM EST Temperature 36.3 ??C (97.3 ??F) 01/02/2021 12:58 PM EST Respiratory Rate 16 01/02/2021 12:58 PM EST Oxygen Saturation 100% 01/02/2021 12:58 PM EST Inhaled Oxygen Concentration - - Weight 65.9 kg (145 lb 3.2 oz) 01/02/2021 12:58 PM EST Height 169 cm (5' 6.54) 01/02/2021 12:58 PM EST Body Mass Index 23.06 01/02/2021 12:58 PM EST documented in this encounter Progress Notes Xiomara Art, RN - 01/02/2021 1:00 PM EST MEDICAL ONCOLOGY INITIAL NURSING ASSESSMENT ADVANCE DIRECTIVES: In [facility] [ ] Has documents [ ] Will bring in [ ] Not in eDH IF NO: Advance Directive pamphlet provided : Referral to Care Management : PRESENTING SYSTEMS and PATHOLOGY: as per Dr. Gaming REVIEW OF SYSTEMS: as per DR. Gaming Prior Radiotherapy: no[ x ] Yes[ ]Site Date Facility Prior Chemotherapy: no[ x ] Yes[ ] Drug: Oncologist- LastTreatment: NO: YES: Claustrophobia or requires sedation for MRIs x Allergy to CT or MRI contrast agent or iodine or shellfish YES Diabetic and on metformin YES Metal in body, implanted device, worked with metal, body piercings,braces x Dentures or hearing device x Pacemaker x Difficulty breathing while lying flat x Kidney problems/creatinine x Balance difficulty: [ x ]no [ ]yes At risk for fall: [ x ] no [ ] yes If yes, actions implemented to prevent fall. Patient/family instructed to avoid independent ambulation. Use wheelchair and ask for assistance of staff while in the clinic. ADL [ x ] no limits [ ] needs dressing assistance [ ] needs meal assistance Assistive device:[ x ]none [ ]cane [ ]walker [ ]wheelchair [ ]other: explain PAIN ASSESSMENT: [0 ] out of 10 Location: Description: [ ] Dull [ ] Sharp [ ] Burning [ ] Throbbing [ ] Radiating [ ] Continuous [ ]Intermittent Aggravating Factors: [ ] Movement [ ] Position [ ]Immobility [ ]Other Alleviating Factors: [ ]Medication [ ] Positioning [ ] Other Current Pain Management Plan: [ x ]Satisfied [ ] Not satisfied SOCIAL ASSESSMENT: See [facility] social assessment information entered. Support Systems: lives with spouse transportation plan: [x ]private vehicle [ ] RCT needs Social Work referral [ ] Unknown at this time needs Social Work referral Barriers to treatment: noone Referrals/Interventions: NA LEARNING STYLE: Visual and verbal, wants written material and verbal discussion. TEACHING: x__ NCI ???Chemotherapy and You?? and folder given x__ Specific chemotherapy literature provided and reviewed with patient. Adriamycin, Cyclophosphamide and Neulasta, also Paclitaxel Aldo Rascon MD - 01/02/2021 1:00 PM EST Subjective: Patient ID: Tatyana Skelton is a 65 y.o. female. HPI The patient is a 65-year-old female seen in the [facility]. She is referred by Dr. Heath and Dr. Epps for consultation regarding recently discovered right breast cancer. The patient has a history of ulcerative colitis as well as diabetes type 1 and has been followed by [facility] and endocrine. She had a routine mammogram after a 2-year gap from her last one. This reported a suspicious area in the right breast which was confirmed by ultrasound. On 11/27/2020 she underwent an ultrasound-guided needle core biopsy of the right breast and had a clip placement. Pathology from [facility] reported at least microinvasive adenocarcinoma of the lobular type. ER was negative, HI was negative, HER-2 was negative. The patient underwent an MRI scan of her breasts on 12/26/2020. This revealed no abnormalities in theleft breast but a 2.1 x 1.5 x 1 cm lesion in the right breast about 8 cm posterior to the nipple. Several additional scattered enhancing nodular lesions in the right upper outer quadrant, the largest me asuring 6.1 mm was suggestive of multifocal neoplasm. The patient met with Dr. Epps on 12/31/2020 to discuss treatment options. In the setting of triple negative breast cancer greater than [address] Easley who said to consider neoadjuvant chemotherapy. The patient is here to discuss that option. She did have a chest x-ray which was negative and an ultrasound of the right axilla which did not reveal any abnormal nodes. She is also scheduled for a PET scan but not clear if her insurance company is going to approve that. The patient has no known heart disease. No neuropathy. There is no significant family history of breast cancer. She was able to find that her great or great great grandmother had breast cancer. She has3 children. Menarche was around age 18. Her first was age 25. She had 3 children. She never took any hormonal therapy or treatment. Menopause was around age 56. Patient Active Problem List Diagnosis Code ??? UC (ulcerative colitis) K51.90 ??? HTN (hypertension) I10 ??? Hypothyroidism E03.9 ??? History of diverticulitis Z87.19 Type 1 diabetes diagnosed as an adult [...] 9 Device, Rfl: 3 ??? Dexcom G6 Sales Route Driver Misc, 1 each by Misc.(Non-Drug; Combo Route) [...] mg tablet, , Disp: , Rfl: ??? fluconazole (Diflucan) 150 mg Tablet, 150 mg once a week., Disp: , Rfl: Allergies Allergen Reactions ??? [...] file Occupational History ??? Not on file Social Needs ??? Financial resource strain: Not on file ??? Food insecurity Worry: Not on file Inability: Not on file ??? Transportation needs Medical: Not on file Non-medical: Not on file Tobacco Use ??? Smoking status: Never Smoker ??? Smokeless tobacco: Never Used Substance and Sexual Activity ??? Alcohol use: No ??? Drug use: No ??? Sexual activity: Yes Partners: Male Lifestyle ??? Physical activity Days per week: Not on file Minutes per session: Not on file ??? Stress: Not on file Relationships ??? Social connections Talks on phone: Not on file Gets together: Not on file Attends buddhism service: Not on file Active member of club or organization: Not on file Attends meetings of clubs or organizations: Not on file Relationship status: Not on file ??? Intimate partner violence Fear of current or ex partner: Not on file Emotionally abused: Not on file Physically abused: Not on file Forced sexual activity: Not on file Other Topics Concern ??? Not on file Social History Narrative x 35 years with 3 children. 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 Nonsmoker ETOH: once a week No family history on file. Breast cancer [...] All other systems reviewed and are negative. Objective: Physical Exam Constitutional: General: She is not in acute distress. HENT: Mouth/Throat: Pharynx: No oropharyngeal exudate. Eyes: General: No scleral icterus. Cardiovascular: Rate and Rhythm: Normal rate and regular rhythm. Heart sounds: Normal heart sounds. Pulmonary: Effort: Pulmonary effort is normal. Breath sounds: Normal breath sounds. No wheezing. Abdominal: General: Bowel sounds are normal. Palpations: Abdomen is soft. There is no mass. Tenderness: There is no abdominal tenderness. Lymphadenopathy: Cervical: No cervical adenopathy. Skin: Findings: No rash. Neurological: Mental Status: She is alert and oriented to person, place, and time. On breast exam she has multiple areas of fibrocystic change in the superior portion of both breasts.I do not feel a dominant mass. Assessment and Plan: 65-year-old female who has a new diagnosis of right-sided breast cancer. She possibly could have multifocal disease. There was a lobular histology and tumor was triple negative. The largest dimension by MRI was 2.1 cm. Typically for a T2 tumor that is node-negative I would not particularly pursue systemic staging witha PET scan but we will see if it gets approved by her insurance company. There is a rationale to give neoadjuvant chemotherapy to this patient. It is likely she will choose mastectomy based on the multifocal appearance on MRI so I do not think we can downstage her enough toconsider less then a mastectomy. But there is prognostic information in her response to neoadjuvant therapy. Patients who do not achieve a complete remission at the time of surgery may get additional benefit from postoperative chemotherapy with capecitabine. We discussed the concept of chemotherapy. We initiated discussion regarding the details of chemotherapy including 4 cycles of Adriamycin and cyclophosphamide delivered every 2 weeks with Neulasta support. We discussed toxicity including cytopenia with risk of infection and bleeding. We discussed alopecia nausea vomiting. We discussed bladder and cardiac toxicity as well as other toxicity. She would need a port and a echocardiogram prior to considering therapy. Typically we follow the 4 cycles of Adriamycin and cyclophosphamide by 4 cycles of Taxol given also every 2 weeks. This can haveadditional toxicity including neuropathy as well as infusional reactions. She had several questions which we answered to her satisfaction. She was also given written information about these agents. I did briefly talk with her about possible clinical trial participation. Although she said she wouldbe open to it she is not sure her would be. I will discuss her clinical trial possibility with the breast team. We also briefly talked about risks of a genetic predisposition. She does not have a strong family history but in women with triple negative breast cancer there is a higher proportion of patients who are BRCA positive so at some point she should have family cancer consultation. She is anxious to get started with her neoadjuvant chemotherapy program. We will plan to bring her back after her echocardiogram and port are placed for a chemotherapy teaching and to start cycle 1 of Adriamycin cyclophosphamide unless there are potential clinical trials that she would be interested in. Thanks for allowing me to participate in her care. documented in this encounter Plan of Treatment Upcoming Encounters Date Type Specialty Care Team Description 10/15/2022 Office Visit Hematology and Oncology Aldo Gaming MD [facility] HEMATOLOGY/ONCOL [place] DEPT. [place], [place] [address] (Wo rk) documented as of this encounter Results ECHOCARDIOGRAM COMPLETE (01/14/2021 12:36 PM EST) Anatomical Region Laterality Modality Other Specimen (Source) Anatomical Location Collection Method / Collectio n Time Received Time / Laterality Volume 01/14/2021 Narrative 01/14/2021 12:51 PM EST Procedure: ?Transthoracic Echocardiogram Patient: ?GABRIELA Barker ?(Age): 1955(65y) Med Rec#: ? [id number] ?Sex: ?F ? Site Loc: ? [facility] ?Ht / Wt: ??169(cm)/66(kg) Pt. Loc: ?Echo Lab ?BSA: ?1.76 Study Date: ?? 01/14/2021 ?Pt. Type: Outpatient Tape: ? Referring: [place]LEY Reading: Osbaldo Meza ([id number]) Retanned Leather Roller: Thompson Youngblood [facility] Retanned Leather Roller 2: Friend Bruce Diagnosis: *Malignant neoplasm of upper-outer quad rant of right female breast (C50.411) *Estrogen receptor negative status [ER- ] (Z17.1) BP: ? 138/69 SUMMARY: 1. Basal septal hypertrophy is observed. There is no evidence of LVOT obstruction.The left ventricular chamber size is normal.There is normal global left ventricular systolic functio n. ??The quantitative left ventricular ejection fraction by biplane Shannon's method is 67%. GLS = -18.9% on GE E95.There are no left ventr icular segmental wall motion abnormalities.Doppler assessment is cons istent with normal left sided filling pressure. 2. The right ventricle is normal in size .Right ventricular global systolic function is normal.The estimate d pulmonary artery systolic pressure is 39 mmHg. 3. Normal atrial sizes. 4. There is no hemodynamically significa nt valve disease. 5. See remainder of report for additiona l findings. 6. No prior for comparison. Findings ? : Study Quality: ? Adequate Left Ventricle: ? The left ventricul ar chamber size is normal. ?Basal septal hypertrophy is observ ed. ?There is no evidence of LVOT obstr uction. ?No ventricular septal defect is vi sualized. ?There is normal global left ventri cular systolic function.GLS -18.9% on GE E95 ?The quantitative left ventricular ejection fraction by biplane Shannon's method is 67%. ?There are no left ventricular segm ental wall motion abnormalities. ?Left ventricular diastolic functio n is normal. ?Doppler assessment is consistent w ith normal left sided filling pressure. Left Atrium: ? The left atrium is no rmal in size.31 ml/m2 Right Ventricle: ? The right ventric le is normal in size. ?Right ventricular global systolic function is normal. ?The estimated pulmonary artery sys tolic pressure is 39 mmHg. ?The estimated right atrial pressur e is 8 mmHg. Right Atrium: ? The right atrium kristin ears normal. Aortic Valve: ? The aortic valve is trileaflet. The leaflets are thin with normal excursion. There is no aorti c stenosis or regurgitation present. Mitral Valve: ? The mitral valve kristin ears normal in structure and function. ?There is trace mitral regurgitatio n present. Tricuspid Valve: ? The tricuspid evens ve appears normal in structure and function. ?There is mild (1+/4+) tricuspid re gurgitation present. Pulmonic Valve: ? The pulmonic valve appears normal in structure and function. ?There is trace pulmonic regurgitat ion present. Pericardium: ? The pericardium appea rs normal and there is no evidence of a pericardial effusion. Aorta: ? The aortic root is normal i n size. ?The ascending aorta is normal in s ize. Pulmonary Artery: ? The main pulmona ry artery is not well visualized. Venous: ? The inferior vena cava kristin ears dilated. ?There is a greater than 50% respir atory change in the inferior vena cava dimension. Misc: ? There is no hemodynamically significant valve disease. ?See remainder of report for additi onal findings. ?Two-dimensional echo, spectral Dop pler and color Doppler performed. ?LARS performed ?Myocardial Strain Imaging Chambers 2D ?Value ?Units (Range) ? IVSd (2D) ? 1.5 ?cm ? LVPWd (2D) ?0.93 ? cm ? IVS:LVPW ratio (2D) 1.62 ? ratio ? RWT (2D) ?0.6 ?ratio ? RWT PW (2D) ? 0.46 ? ratio ? LVIDd (2D) ?4.07 ? cm ? LVIDs (2D) ?2.91 ? cm ? LVIDd (2D) index ?2.31 ? cm/m2 ? LVIDs (2D) index ?1.66 ? cm/m2 ? LV FS (2D) ?28.39 ?% ? EF Teichholz (2D) ?? 55.3 ? % ? Ao root diameter (2D3.15 ? cm (2.1 - 3.6) ? Ascending Ao ?3.07 ? cm (2 - 3.5) ? Volumes/Mass ?Value ?Units (Range) ? LA Area 4 CH ?15 ? cm2 (<21) ? LA ESV BP (A/L) inde30.99 ? ml/m2 ? RA AREA 4CH ? 12 ? cm2 ? LV ESV SP 4CH (MOD) 26.09 ? ml ? LV ESV SP 2CH (MOD) 18.22 ? ml ? LV EDV BP ? 67.02 ?ml ? LV ESV BP ? 21.98 ?ml ? LV EDV BP index ? 38.13 ?ml/m2 ? LV ESV BP index ? 12.51 ?ml/m2 ? BP EF (MOD) ? 67.2 ? % ? LV mass (2D) ?172.78 ? g ? LV mass (2D) index ??98.31 ?g/m2 ? Diastolic/Systolic Function ?Value ?Units (Range) ? MV E-wave Vmax ?0.69 ? m/sec ? MV deceleration fcwg369.16 ? m sec ? MV A-wave Vmax ?0.87 ? m/sec ? MV E:A ratio ?0.8 ?ratio ? LV septal e' Vmax ?? 0.06 ? m/sec ? LV lateral e' Vmax ??0.1 ?m/sec ? LV average e' Vmax ??0.08 ? m/sec ? LV E:e' septal ratio11.49 ? ratio ? LV E:e' lateral rati6.9 ?ratio ? LV average E:e' rati8.62 ? ratio ? Tricuspid Valve ?Value ?Units (Range) ? TR Vmax ? 2.77 ? m/sec ? TR peak gradient ?30.73 ?mmHg ? RAP ? 8 ?mmHg ? RVSP ?39 ? mmHg ? Wall Motion: Segment Name ?Rest ? Base-Anteroseptal ?? Normal ? Base-Anterior ? Normal ? Base-Anterolateral ??Normal ? Base-Posterolateral Normal ? Base-Inferior ? Normal ? Base-Inferoseptal ?? Normal ? Mid-Anteroseptal ?Normal ? Mid-Anterior ?Normal ? Mid-Anterolateral ?? Normal ? Mid-Posterolateral ??Normal ? Mid-Inferior ?Normal ? Mid-Inferoseptal ?Normal ? [place]-Septal ? Normal ? [place]-Anterior ? Normal ? [place]-Lateral ?Normal ? [place]-Inferior ? Normal ? [place]-Tip ?Normal ? This report has been electronically sign ed by: _ Osbaldo Meza MD ? 12:51:02 Images reviewed and interpretation addisonif ied [facility] Cardiac Ultrasound Laboratory Procedure Note Osbaldo Meza MD - 01/14/2021F ormatting of this note might be different from the original. Procedure: Transthoracic Echocardiogram Patient: GABRIELA SMALL(Age): 1954(65y) Med Rec#: [id number] Sex: F Site Loc: [facility] [facility] Ht / Wt: 169(cm)/66(kg) Pt. Loc: Echo Lab BSA: 1.76 Study Date: 01/14/2021 Pt. Type: Outpati ent Tape: Referring: [facility] Reading: Osbaldo Meza ([id number]) Retanned Leather Roller: Thompson Youngblood [facility] Retanned Leather Roller 2: Friend, Bruce Diagnosis: *Malignant neoplasm of upper-outer quad rant of right female breast (C50.411) *Estrogen receptor negative status [ER- ] (Z17.1) BP: 138/69 SUMMARY: 1. Basal septal hypertrophy is observed. There is no evidence of LVOT obstruction.The left ventricular chamber size is normal.There is normal global left ventricular systolic functio n. The quantitative left ventricular ejection fraction by biplane Shannon's method is 67%. GLS = -18.9% on GE E95.There are no left ventr icular segmental wall motion abnormalities.Doppler assessment is cons istent with normal left sided filling pressure. 2. The right ventricle is normal in size .Right ventricular global systolic function is normal.The estimate d pulmonary artery systolic pressure is 39 mmHg. 3. Normal atrial sizes. 4. There is no hemodynamically significa nt valve disease. 5. See remainder of report for additiona l findings. 6. No prior for comparison. Findings : Study Quality: Adequate Left Ventricle: The left ventricular akila mber size is normal. Basal septal hypertrophy is observed. There is no evidence of LVOT obstructio n. No ventricular septal defect is visuali zed. There is normal global left ventricular systolic function.GLS -18.9% on GE E95 The quantitative left ventricular eject ion fraction by biplane Shannon's method is 67%. There are no left ventricular segmental wall motion abnormalities. Left ventricular diastolic function is normal. Doppler assessment is consistent with n ormal left sided filling pressure. Left Atrium: The left atrium is normal i n size.31 ml/m2 Right Ventricle: The right ventricle is normal in size. Right ventricular global systolic funct ion is normal. The estimated pulmonary artery systolic pressure is 39 mmHg. The estimated right atrial pressure is 8 mmHg. Right Atrium: The right atrium appears n ormal. Aortic Valve: The aortic valve is trilea flet. The leaflets are thin with normal excursion. There is no aorti c stenosis or regurgitation present. Mitral Valve: The mitral valve appears n ormal in structure and function. There is trace mitral regurgitation pre sent. Tricuspid Valve: The tricuspid valve kristin ears normal in structure and function. There is mild (1+/4+) tricuspid regurgi tation present. Pulmonic Valve: The pulmonic valve appea rs normal in structure and function. There is trace pulmonic regurgitation p resent. Pericardium: The pericardium appears nor mal and there is no evidence of a pericardial effusion. Aorta: The aortic root is normal in size . The ascending aorta is normal in size. Pulmonary Artery: The main pulmonary art richie is not well visualized. Venous: The inferior vena cava appears d ilated. There is a greater than 50% respiratory change in the inferior vena cava dimension. Misc: There is no hemodynamically signif icant valve disease. See remainder of report for additional findings. Two-dimensional echo, spectral Doppler and color Doppler performed. LARS performed Myocardial Strain Imaging Chambers 2D Value Units (Range) IVSd (2D) 1.5 cm LVPWd (2D) 0.93 cm IVS:LVPW ratio (2D) 1.62 ratio RWT (2D) 0.6 ratio RWT PW (2D) 0.46 ratio LVIDd (2D) 4.07 cm LVIDs (2D) 2.91 cm LVIDd (2D) index 2.31 cm/m2 LVIDs (2D) index 1.66 cm/m2 LV FS (2D) 28.39 % EF Teichholz (2D) 55.3 % Ao root diameter (2D3.15 cm (2.1 - 3.6) Ascending Ao 3.07 cm (2 - 3.5) Volumes/Mass Value Units (Range) LA Area 4 CH 15 cm2 (<21) LA ESV BP (A/L) inde30.99 ml/m2 RA AREA 4CH 12 cm2 LV ESV SP 4CH (MOD) 26.09 ml LV ESV SP 2CH (MOD) 18.22 ml LV EDV BP 67.02 ml LV ESV BP 21.98 ml LV EDV BP index 38.13 ml/m2 LV ESV BP index 12.51 ml/m2 BP EF (MOD) 67.2 % LV mass (2D) 172.78 g LV mass (2D) index 98.31 g/m2 Diastolic/Systolic Function Value Units (Range) MV E-wave Vmax 0.69 m/sec MV deceleration smsl461.16 msec MV A-wave Vmax 0.87 m/sec MV E:A ratio 0.8 ratio LV septal e' Vmax 0.06 m/sec LV lateral e' Vmax 0.1 m/sec LV average e' Vmax 0.08 m/sec LV E:e' septal ratio11.49 ratio LV E:e' lateral rati6.9 ratio LV average E:e' rati8.62 ratio Tricuspid Valve Value Units (Range) TR Vmax 2.77 m/sec TR peak gradient 30.73 mmHg RAP 8 mmHg RVSP 39 mmHg Wall Motion: Segment Name Rest Base-Anteroseptal Normal Base-Anterior Normal Base-Anterolateral Normal Base-Posterolateral Normal Base-Inferior Normal Base-Inferoseptal Normal Mid-Anteroseptal Normal Mid-Anterior Normal Mid-Anterolateral Normal Mid-Posterolateral Normal Mid-Inferior Normal Mid-Inferoseptal Normal [place]-Septal Normal [place]-Anterior Normal [place]-Lateral Normal [place]-Inferior Normal [place]-Tip Normal This report has been electronically sign ed by: _ Osbaldo Meza MD 01/14/2021 12 :51:02 Images reviewed and interpretation verif ied [facility] Cardiac Ultrasound Laboratory Aldo Gaming MD ECHO ORDERABLES documented in this encounter Visit Diagnoses Diagnosis Malignant neoplasm of upper-outer quadra nt of right breast in female, estrogen receptor negative Malignant neoplasm of upper-outer quadra nt of right breast in female, estrogen receptor negative documented in this encounter Care Teams Missile Technician Relationship Specialty Start Date End Date Bang Heath MD PCP - General General Internal Medicine 01/18/19 [address] [place] [address] documented as of this encounter
--- OUTSIDE RECORDS SUMMARY | 2022-09-09 09:39 | XMS_ITS | Encounter Summary ---
:1955 Author Organization [facility] [place] [address] Care Team Providers Name Role Phone Bang Heath MD Primary Care Provider Encounter Details Date Type Department Care Team Description 12/13/2020 Ancillary Procedure Radiology Library at Bang Heath MD [facility] [address] [address] [place], [place] [phone] (Wo rk) [phone] Social History Tobacco Use Types Packs/Day Years [...] [facility] HEMATOLOGY/ONCOL [place] DEPT. [place], [place] [address] (Wo rk) documented as of this encounter Procedures Procedure Name Priority Date/Time Associated Diagnosis Comme nts FILM Routine 12/13/2020 12:05 AM Results for this LIBRARY-STORAGE EST procedure ar e in ONLY US BREAST the results section. documented in this encounter Results Film Library Storage Only US Breast (12/13/2020 12:05 AM EST) Specimen (Source) Anatomical Location Collection Method / Collectio n Time Received Time / Laterality Volume Narrative [facility] - 01/01/2021 4:04 PM EST This exam is auto-finalizing. It's purpo se is for storage only. Bang Heath MD IMG FILM LIBRARY ORDERABLES Performing Organization Address City/State/ZIP Code Phon e Number [place], [place] documented in this encounter Visit Diagnoses Not on filedocumented in this encounter Care Teams Switchboard Receptionist Relationship Specialty Start Date End Date Bang Heath MD PCP - General General Internal Medicine 01/18/[address] [place] [address] documented as of this encounter
--- OUTSIDE RECORDS SUMMARY | 2022-09-09 09:39 | XMS_ITS | Encounter Summary ---
:1955 Author Organization [facility] [place] [address] Care Team Providers Name Role Phone Bang Heath MD Primary Care Provider Encounter Details Date Type Department Care Team Description 01/03/2021 External Results Medical Records Provider, [place] [address] Social History Tobacco Use Types Packs/Day [...] MD [facility] HEMATOLOGY/ONCOL [place] DEPT. [place], [place] [address] (Wo rk) documented as of this encounter Procedures Procedure Name Priority Date/Time Associated Diagnosis Comme [facility] SURGICAL PATHOLOGY Routine 01/03/2021 Results f or this SCAN procedure are i n the results section . documented in this encounter Results Scan Doc: Surgical Pathology (01/03/2021) Narrative This result has an attachment that is no t available. Aldo Gaming MD MEDIA MGR SCAN EXT ORDR/RSLT documented in this encounter Visit Diagnoses Not on filedocumented in this encounter Care Teams Yard Switch Operator Relationship Specialty Start Date End Date Bang Heath MD PCP - General General Internal Medicine 01/18/19 [address] [place] [address] documented as of this encounter
--- OUTSIDE RECORDS SUMMARY | 2022-09-09 09:39 | XMS_ITS | Encounter Summary ---
:1955 Author Organization [facility] [place] [address] Care Team Providers Name Role Phone Bang Heath MD Primary Care Provider Reason for Visit Reason Onset Date Comments Medication Refill 12/15/2020 Encounter Details Date Type Department Care Team Description 12/15/2020 Refill Endocrinology at [facility] Tatyana Lea, Type 1 diabetes [facility] Rub[place] [address] [facility] complication [phone] ENDOCRINOLOGY [place], [place] [address] (Wo rk) Social History Tobacco [...] Hematology and Oncology Aldo Gaming MD [facility] HEMATOLOGY/[facility]COL [place] DEPT. [place], [place] [address] (Wo rk) documented as of this encounter Visit Diagnoses Diagnosis Type 1 diabetes mellitus without complic ation Type I (juvenile type) diabetes mellitus without mention of complication, not stated as uncontrolled documented in this encounter Care Teams Sausage Machine Operator Relationship Specialty Start Date End Date Bang Heath MD PCP - General General Internal Medicine 01/18/[address] [place] [address] documented as of this encounter
--- OUTSIDE RECORDS SUMMARY | 2022-09-09 09:39 | XMS_ITS | Encounter Summary ---
:1955 Author Organization [facility] [place] [address] Care Team Providers Name Role Phone Bang Heath MD Primary Care Provider Reason for Referral Diagnostic Test (Routine) - Closed Specialty Diagnoses / Procedures Referred By Contact Refer red To Contact Cardiology Diagnoses Malignant neoplasm of upper-outer quadrant of right breast in female, estrogen receptor negative Aldo Gaming MD Procedures Echocardiogram Transthoracic([facility]) [facility] HEMATOLOGY/[place] [address] Referral ID Status Reason Start Date Expiration Date Visits V isits Requested Authorized [id number] Closed Specialty 01/02/2021 01/02/2022 1 1 Service Requested Reason for Visit Diagnostic Test (Routine) - Closed Specialty Diagnoses / Procedures Referred By Contact Refer red To Contact Cardiology Diagnoses Malignant neoplasm of upper-outer quadrant of right breast in female, estrogen receptor negative Aldo Gaming MD Procedures Echocardiogram Transthoracic([facility] or [facility]) [facility] HEMATOLOGY/[place] [address] Referral ID Status Reason Start Date Expiration Date Visits V isits Requested Authorized [id number] Closed Specialty 01/02/2021 01/02/2022 1 1 Service Requested Encounter Details Date Type Department Care Team Description 01/14/2021 Hospital Encounter Non-Invasive Aldo Gaming, Maligna nt neoplasm Cardiology Lab Kya MCGINN[facility] DR herndon in female, [facility] HEMATOLOGY/ONCOL estro gen receptor [address] OGY DEPT. negative [place], [place] [id number] [phone] Social History Tobacco Use Types Packs/Day Years [...] Sig Dispensed Refills Start Date End Date ascorbic acid, vitamin Take 500 mg by [...] atenolol (TENORMIN) 25 0 03/07/2010 mg tablet metFORMIN (Glucophage) Take 2 tablets by 360 tablet 3 202012/09/2021 500 mg mouth 2 times daily TabletIndications: (with meals). Type 1 diabetes mellitus without complication levothyroxine Take 1 tablet by mouth 90 tablet 3 08/20/2020 08/11/2021 (SYNTHROID) 175 mcg daily. TabletIndications: Acquired hypothyroidism sulfaSALAzine TAKE FOUR TABLETS BY 720 tablet 3 04/29/2020 0 04/18/2021 (Azulfidine) 500 mg MOUTH TWICE A DAY Tablet OneTouch Verio Strip Check blood glucose 6 600 each 3 03/2903/12/2021 times daily and additionally as needed. Dexcom G6 Transmitter 1 each by 1 Device 3 04/04/2020 DeviceIndications: Misc.(Non-Drug; Combo DINESH (latent Route) route autoimmune diabetes in continuous. Change adults), managed as every 90 days. type 1 Dexcom G6 Sensor 1 each by 9 Device 3 04/04/2020 03/12/20 DeviceIndications: Misc.(Non-Drug; Combo DINESH (latent Route) route autoimmune diabetes in continuous. To be adults), managed as changed every 10 days. type 1 fluconazole (Diflucan) 150 mg once a week. 0 03/04/202004/24/2021 150 mg Tablet humaLOG KwikPen 100 Inject 1-6 Units 15 mL 3 02/16/2020 02/17/2021 unit/mL Insulin Pen subcutaneously 3 times daily (before meals). ICD 10 Code: E10.9 BD Ultra-Fine Short Inject 1 each 400 each 3 02/13/2020 Pen Needle 31 gauge x subcutaneously 4 times 5/16 Needle daily. ICD 10 Code: E10.9 LANTUS SOLOSTAR U-100 Inject 18 Units 15 mL 3 9 02/17/2021 INSULIN pen subcutaneously every morning. LORazepam (ATIVAN) 0.5 0 05/08/2019 mg Tablet UNIFINE PENTIPS 31 USE 1 PEN NEEDLE FOUR 3 201803/12/2021 gauge x 3/16 Needle TIMES A DAY TO INJECT INSULIN documented as of this encounter Plan of Treatment Upcoming Encounters Date Type Specialty Care Team Description 10/15/2022 Office Visit Hematology and Oncology Aldo Gaming MD [facility] HEM[facility]OLOGY/[facility] DEPT. [place], [place] [address] (Wo rk) documented as of this encounter Procedures Procedure Name Priority Date/Time Associated Comments Diagnosis ECHOCARDIOGRAM COMPLETE Routine 01/14/2021 12:36 Malignant sancho plasm Results for this PM EST of upper-outer procedure are in quadrant of right the result s breast in female, section. estrogen receptor negative documented in this encounter Results ECHOCARDIOGRAM COMPLETE (01/14/2021 12:36 PM EST) Anatomical Region Laterality Modality Other Specimen (Source) Anatomical Location Collection Method / Collectio n Time Received Time / Laterality Volume 01/14/2021 Narrative 01/14/2021 12:51 PM EST Procedure: ?Transthoracic Echocardiogram Patient: ?GABRIELA TATYANA Barker ?(Age): 1955(65y) Med Rec#: ? [id number] ?Sex: ?F ? Site Loc: ? [facility] [place] [place] ?Ht / Wt: ??169(cm)/66(kg) Pt. Loc: ?Echo Lab ?BSA: ?1.76 Study Date: ?? 01/14/2021 ?Pt. Type: Outpatient Tape: ? Referring: CELESTE Reading: Osbaldo Meza ([id number]) Neurology Tech: Thompson Youngblood [facility] Neu[facility] Tech 2: Friend, Bruce Diagnosis: *Malignant neoplasm of [...] Vmax ?0.69 ? m/sec ? MV deceleration ftjp787.16 ? m sec ? MV A-wave Vmax [...] ? Mid-Inferior ?Normal ? Mid-Inferoseptal ?Normal ? [place]-Septal ? Normal ? [place]-Anterior ? Normal ? [place]-Lateral ?Normal ? [place]-Inferior ? Normal ? [place]-Tip ?Normal ? This report has been electronically sign ed by: _ Osbaldo Meza MD ? 021 12:51:02 Images reviewed and interpretation [facility] Cardiac Ultrasound Laboratory Procedure Note Osbaldo Meza MD - 01/14/2021F ormatting of this note might be different from the original. Procedure: Transthoracic Echocardiogram Patient: GABRIELA SMALL(Age): 1954(65y) Med Rec#: [id number] Sex: F Site Loc: [facility] [place] [place] Ht / Wt: 169(cm)/66(kg) Pt. Loc: Echo Lab BSA: 1.76 Study Date: 01/14/2021 Pt. Type: Outpati ent Tape: Referring: [facility] Reading: Osbaldo Meza ([id number]) Neurology Tech: Thompson Youngblood [facility] Neu[facility] Tech 2: Friend, Bruce Diagnosis: *Malignant neoplasm of [...] MV E-wave Vmax 0.69 m/sec MV deceleration mixd895.16 msec MV A-wave Vmax 0.87 m/sec MV [...] Normal Mid-Posterolateral Normal Mid-Inferior Normal Mid-Inferoseptal Normal [place]-Septal Normal [place]-Anterior Normal [place]-Lateral Normal [place]-Inferior Normal [place]-Tip Normal This report has been electronically sign ed by: _ Osbaldo Meza MD 01/14/2021 12 :51:02 Images reviewed and interpretation ver ied [facility] Cardiac Ultrasound Laboratory Aldo Gaming MD ECHO ORDERABLES documented in this encounter Visit Diagnoses Diagnosis Malignant neoplasm of upper-outer quadra nt of right breast in female, estrogen receptor negative documented in this encounter Care Teams Director Of Corporate Marketing Relationship Specialty Start Date End Date Bang Heath MD PCP - General General Internal Medicine 01/18/19 [address] [place] [address] documented as of this encounter
--- OUTSIDE RECORDS SUMMARY | 2022-09-09 09:39 | XMS_ITS | Encounter Summary ---
:1955 Author Organization [facility] [place] [address] Care Team Providers Name Role Phone Bang Heath MD Primary Care Provider Encounter Details Date Type Department Care Team Description 03/26/2021 Orders Only Hematology/Oncology at [facility] PANTOGRAPH OPERATOR [address] [place], [place] HEMATOLOGY ONCO LOGY [address] [place], [place] [phone] (Wo rk) Social History Tobacco Use Types [...] Visit Hematology and Oncology Aldo Gaming MD [facility]OLOG[facility] [place] [place] [address] (Wo rk) documented as of this encounter Visit Diagnoses Not on filedocumented in this encounter Care Teams Bill Poster Installer Relationship Specialty Start Date End Date Bang Heath MD PCP - General General Internal Medicine 01/18/19 [address] [place] [address] documented as of this encounter
--- OUTSIDE RECORDS SUMMARY | 2022-09-09 09:39 | XMS_ITS | Encounter Summary ---
:1955 Author Organization [facility] [place] [address] Care Team Providers Name Role Phone Bang Heath MD Primary Care Provider Encounter Details Date Type Department Care Team Description 03/12/2021 TH Visit Endocrinology at [facility] DINESH Lea (latent (TeleHealth) [facility] MD Tatyana autoimmune diabetes [facility] in adults), [place] [address] [place] [address] Social History Tobacco Use Types Packs/Day Years [...] documented as of this encounter Progress Notes Tatyana Callahan MD - 03/12/2021 10:00 AM EDT Endocrinology Clinic Follow-up Visit Reason for Visit: Follow-up of Diabetes Mellitus Type 1 HISTORY OF PRESENT ILLNESS: Ms. Tatyana Skelton is a 66 y.o. year old lady with history significant for UC and DM type 1 (DINESH) that had in the past been complicated by frequent hypoglycemia, but this has been better more recently. She is now using a Dexcom CGM. Her last visit with me was a couple years ago - Jul 2019 - and she was seen by one of our nurse practitioners for follow-up in March 2020. She recently contacted me by [facility] because she recently started chemotherapy for breast cancer and her glucose levels have been spiking after her chemotherapy sessions. I responded as follows: I looked at the contents of your chemo infusion, and looks like it includes dexamethasone which is a potent steroid that lasts in the system longer than prednisone does. Are you also taking prednisone as well, with the chemo? ?? If it is just dexamethasone (no prednisone), we do expect steroid-induced hyperglycemia (and increased insulin requirement) to last for about a week afterward, but waning over that period of time. Thismeans that you will actively need to be adjusting your insulin over that week. ?? If you are already having overnight lows, I wouldn't adjust the long acting insulin any higher. For the long-acting insulin, stick to the self adjustment rule of +/- 2 units every 2 days to keep fasting glucose between 90-150. ?? Steroid-induced hyperglycemia is mostly meal-associated, so I would recommend tightening up your carb ratio starting after your chemo infusion. I haven't had a follow-up appointment with you in a while, so I dont know what carb ratio you've been using most recently, but for example, if you've been doing a 1:15g carb ratio, you try can tightening it to 1:12g for 2 days, then relax to 1:13g for 2 days,then 1:14g for 2 days, then back to 1:15g. ?? Prednisone is handled a bit differently - adding NPH insulin is best for prednisone, so let me know. I also advised her to be scheduled for a follow-up appointment and she scheduled herself for today. LT4 175 mcg daily. TSH (02/27/21) - 0.41 Last couple weeks, BG have been in a good range, even after her chemo 120s-200 Currently taking Lantus 18 units daily. This AM fasting glucose was 111. Overnight BG increased to 185. She had potatoes for dinner last night. Date of Diagnosis: Sep 2017 ?? Last HgbA1c: 5.4% (02/27/21), 5.3% (08/22/2019), 5.6% (Dec 2018), 5.9% (May 2018), 8.5% (Oct 2017), 10.5% (Sep 2017) ?? Current Diabetes Medication regimen: Lantus 18 units daily Humalog CR 1:15g plus correction 1:50 mg/dL above 150 Metformin 1000mg BID (500mg tabs). FSBG regimen: 4x/day - TIDAC/HS ?? Hypoglycemia: ?? Diet: tends towards grazing ?? Physical Activity: Smoking: History of complications 1) Nephropathy - Um:cr 11 (02/27/21) , GFR >60 (02/13/21) 2) Neuropathy - 3) Retinopathy - Last ophtho evaluation November 2018 - no DR ([facility]) 4) CV disease - LDL 32 (02/27/21), HDL 88 (02/27/21) PAST MEDICAL HISTORY: Patient Active Problem List Diagnosis Date Noted ??? Malignant neoplasm of upper-outer quadrant of right breast in female, estrogen receptor yuuajwse52/05/2021 ??? History of diverticulitis 09/17/2014 ??? UC (ulcerative colitis) 09/11/2013 ??? HTN (hypertension) ??? Hypothyroidism SOCIAL HISTORY: Social History Tobacco Use Smoking Status Never Smoker Smokeless Tobacco Never Used REVIEW OF SYSTEMS: All 12 systems reviewed and negative except as noted per HPI. PHYSICAL EXAM: Gen: NAD, AAOx3, speaking full sentences, calm very pleasant demeanor Eyes: EOMI, anicteric sclerae ENT: no hoarseness Neck: no visible thyromegaly Pulm: good air movement, easy respirations MSK: 5/5 strength in upper and lower extremities Neuro: normal gait, no focal findings ASSESSMENT/PLAN: 1. DM type 1 - ?? Continue Lantus dose 18 units daily ?? Continue current carb ratio and correction factor ?? Continue metformin 2. Hypothyroidism - continue LT4 175 mcg daily. 3. Follow-up - 6 months with Nargis Kassels, HANDMADE TILE ARTIST. I informed Sangeeta that I will be leaving [facility] on May 04, so she will get transitioned to one of my colleagues for the visit after her next follow-upappt. Total time spent on visit including face to face time with patient, placing orders, and documentation was 25 minutes. TATYANA CALLAHAN MD Med Asstbrand ambassadors promotional sales Section of Endocrinology [facility] documented in this encounter Plan of Treatment Upcoming Encounters Date Type Specialty Care Team Description 10/15/2022 Office Visit Hematology and Oncology Aldo Gaming MD [facility] HEMATOLOGY/ONCOL ANTIONE DEPT. 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
--- OUTSIDE RECORDS SUMMARY | 2022-09-09 09:39 | XMS_ITS | Encounter Summary ---
:1955 Author Organization [facility] [place] [address] Care Team Providers Name Role Phone Bang Heath MD Primary Care Provider Reason for Visit Reason Comments Chemotherapy Cycle 4 Day 1 AC & Onpro Treatment/Therapy Plan Authorization (Routine) - Closed Specialty Diagnoses / Procedures Referred By Contact Refer red To Contact Hematology and Diagnoses Malignant neoplasm of upper-outer quadrant of right female breast Estrogen receptor negative status (ER-) Aldo Gaming MD [facility] Hem Onc Oncology Procedures TC PEGFILGRASTIM-JMDB, BIOSIMILAR, 0.5 MG, INJECTION TC APREPITANT, 1 MG, INJECTION TC PALONOSETRON HCL, 25MCG, INJECTION (ALOXI) TC DOXORUBICIN HCL, 10MG, INJECTION (ADRIAMYCIN) Q5108 pegfilgrastim-jmdb (Fulphila) [facility] Infusion J0185 aprepitant (CINVANTI) J2469 palonosetron (Aloxi) J9000 DOXOrubicin (Adriamycin) J9070 cyclophosphamide (CYTOXAN) NO AUTH NEEDED - J9267 PACLitaxeL (Taxol) 308 mg [facility] HEMATOLOGY/[place] [phone] Phone: Fax: Referral ID Status Reason Start Date Expiration Date Visits Requ ested Visits Authorized [id number] Closed 12/17/2020 12/21/2021 99 99 Encounter Details Date Type Department Care Team Description 02/27/2021 Infusion Hematology Oncology at [facility] [address] [place] [address] Drive right breast in female, [facility], [place] [phone] estrogen receptor negative [phone] Social History Tobacco Use Types Packs/Day Years [...] encounter Progress Notes Yuliet Watson RN - 02/27/2021 11:30 AM EDT INFUSION THERAPY ADMINISTRATION NOTES DIAGNOSIS: Breast Cancer CYCLE #:4 Day 1 REASON FOR VISIT: AC Chemotherapy & Onpro SUBJECTIVE Tatyana offers no complaints. OBJECTIVE LAB DATA: WBC 7.14, HGB 10.8, HCT 33.3, PLT 193, ANC 5.14, BUN 10, Cr 0.7 EF 67% on 01/14 IV ACCESS: Mediport accessed at [facility] for lab draw, blood return present and flushes easily. Pre administration: Chemotherapy orders independently verified for drug name, route, and dosage per patient's height, weight and BSA by Chivo Watson RN & [facility] onsite. REACTIONS (DESCRIPTION, TIME, INTERVENTION AND EFFECTIVENESS) none ASSESSMENT Tatyana was awake, alert and tolerated treatment well. Onpro applied to [place]. Due to deploy at 1600, instructed to remove at 1700 with light is solid green. PLAN Return to clinic as scheduled. documented in this encounter Plan of Treatment Upcoming Encounters Date Type Specialty Care Team Description 10/15/2022 Office Visit Hematology and Oncology Aldo Gaming MD [facility] HEMATOLOGY/ONCOL [place] DEPT. [place], [place] [address] (Wo rk) documented as of this encounter Visit Diagnoses Diagnosis Malignant neoplasm of upper-outer quadra nt of right breast in female, estrogen receptor negative documented in this encounter Administered Medications Inactive Administered Medications - up to 3 most recent administrations Medication Order MAR Action Action Date Dose Rate Site aprepitant (CINVANTI) injection Given 02/27/2021 11:58 AM EDT 13 0 mg Emul 130 mg 130 mg, Intravenous, ONCE, 1 dose, On Kacy 02/27/21 at 1200, Alternative administration of IV push over 2 minutes is a recommendation from the tag stringer. Administer prior to chemotherapy., Routine cyclophosphamide (CYTOXAN) New Bag 02/27/2021 12:48 PM EDT 1,056 m g 605.6 mL/hr 1,056 mg in sodium chloride 0.9% 302.8 mL infusion 1,056 mg (600 mg/m2/dose ? 1.76 m2 Treatment Plan BSA from Recorded weight), Intravenous, ONCE, 1 dose, On Kacy 02/27/21 at 1300, Administer over 30 Minutes, Warning Vesicant/Irritant Medication dexamethasone (Decadron) tablet 10 mg Given 02/27/2021 11:57 AM EDT 10 mg 10 mg, Oral, ONCE, 1 dose, On Kacy 02/27/21 at 1200, Administer prior to chemotherapy, Routine DOXOrubicin (Adriamycin) injection 105.6 Given 02/27/2021 12 :37 PM EDT 105.6 mg mg 105.6 mg (60 mg/m2/dose ? 1.76 m2 Treatment Plan BSA from Recorded weight), Intravenous, ONCE, 1 dose, On Kacy 02/27/21 at 1300, Administer each syringe over a minimum of 3 minutes per syringe. Warning Vesicant/Irritant Medication heparin (pf) (porcine) (100 units/mL) Given 02/27/2021 1:24 PM E DT 500 Units flush 5 mL syringe 500 Units 500 Units, Intravenous, ONCE PRN, Starting on Kacy 02/27/21 at 1143, Until Kacy 02/27/21 at 1611, Line Care, Refer to Intravenous (IV) Procedure: Accessing Implanted Vascular Access Devices (654) procedure and/or Intravenous (IV) Job Aid: Adult Flushing & Catheter Care (5287) job aid for additional information regarding guidelines and administration., Routine LORazepam (Ativan) tablet 0.5 mg Given 02/27/2021 11:57 AM EDT 0.5 mg 0.5 mg, Oral, ONCE, 1 dose, On Kacy 02/27/21 at 1200, Administer prior to chemotherapy, Routine palonosetron (Aloxi) (0.25 mg/mL) injection Given 11/2020 11:58 AM EDT 0.25 mg 0.25 mg 0.25 mg, Intravenous, ONCE, 1 dose, On Kacy 02/27/21 at 1200, Administer over 30 seconds. Administer prior to chemotherapy, Routine pegfilgrastim (Neulasta Onpro) (6 Given 02/27/2021 12:51 PM EDT 6 mg Right Arm mg/0.6 mL) injection kit 6 mg 6 mg, Subcutaneous, ONCE, 1 dose, On Kacy 02/27/21 at 1200, Allow the prefilled syringe co-packaged with the on-body injector to reach room temperature at least 30 minutes prior to administration., Routine, This agent is restricted to outpatient use. Is this drug being given as an outpatient? Yes sodium chloride 0.9 % (flush) flush 5-20 mL Given 02/27/2021 1:24 PM EDT 20 mLs 5-20 mL, Intravenous, EVERY 1 MIN PRN, Starting on Kacy 02/27/21 at 1143, Until Kacy 02/27/21 at 1611, Line Care, Flush pertains to all indwelling lines. Flush per protocol found in the job aid using the link provided on this medication record. Refer to Intravenous (IV) Job Aid: Adult Flushing & Catheter Care (9885) job aid for additional information regarding guidelines and administration., Routine sodium chloride 0.9% infusion New Bag 02/27/2021 12:01 PM EDT 1,000 mLs 1,000 mL, Intravenous, ONCE, 1 dose, On Kacy 02/27/21 at 1200 documented in this encounter Care Teams Transit [employer] Police Officer Relationship Specialty Start Date End Date Bang Heath MD PCP - General General Internal Medicine 01/18/[address] [place] [address] documented as of this encounter
--- OUTSIDE RECORDS SUMMARY | 2022-09-09 09:39 | XMS_ITS | Encounter Summary ---
:1955 Author Organization [facility] [place] [address] Care Team Providers Name Role Phone Bang Heath MD Primary Care Provider Reason for Referral Consultation (Routine) - Closed Specialty Diagnoses / Procedures Referred By Contact Refer red To Contact Hematology and Oncology Diagnoses Malignant neoplasm of upper-outer quadrant of right breast in female, estrogen receptor negative Aldo Gaming MD [facility] [address] HEMATOLOGY/ONCOLOGY [phone] [place] [address] Referral ID Status Reason Start Date Expiration Date Visits V isits Requested Authorized [id number] Closed Consult, 02/27/2021 02/27/2022 1 1 Test & Treat Encounter Details Date Type Department Care Team Description 02/27/2021 Office Visit Hematology/Oncology Celestina Gaming MD [facility] DR HEMATOLOGY/[place] [address] Malignant neoplasm of at [facility] Karli Leavitt APRN [address] [place] [address] [place] [address] upper-outer quadrant [address] of right breast in [place], [place] female, jocelin lovelace [id number] receptor negative [phone] Social History Tobacco Use Types Packs/Day Years [...] Sign Reading Time Taken Comments Blood Pressure 115/71 02/27/2021 10:58 AM EDT Pulse 76 02/27/2021 10:58 AM EDT Temperature 36.1 ??C (97 ??F) 02/27/2021 10:58 AM EDT Respiratory Rate 16 02/27/2021 10:58 AM EDT Oxygen Saturation 97% 02/27/2021 10:58 AM EDT Inhaled Oxygen Concentration - - Weight 66.2 kg (146 lb) 02/27/2021 10:58 AM EDT Height 171 cm (5' 7.32) 02/27/2021 10:58 AM EDT Body Mass Index 22.65 02/27/2021 10:58 AM EDT documented in this encounter Progress Notes Aldo Gaming MD - 02/27/2021 11:00 AM EDT Subjective: Patient ID: Tatyana Skelton is a 66 y.o. female. HPI The patient is a 66-year-old female seen in the [facility]. 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 ER was negative, [place] was negative, HER-2 was negative. MRI scan [...] 01/19 Start neoadjuvant Adriamycin and cyclophosphamide 01/16/2021 The patient returns to the [facility]. She is currently receiving neoadjuvant chemotherapy for her triple negative right-sided breast cancer. She has been tolerating Adriamycin and cyclophosphamidequite well. She is here for her fourth cycle. Her energy continues to be good. She did go for a 5 mile walk recently. She does have a little bit of numbness in her fingertips. Appetite has been good. Weight has been stable. Patient Active Problem List Diagnosis Code ??? UC (ulcerative colitis) K51.90 ??? HTN (hypertension) I10 ??? Hypothyroidism E03.9 ??? History of diverticulitis Z87.19 ??? Malignant neoplasm of upper-outer quadrant of right breast in female, estrogen receptor vfuvwaxdS15.411, Z17.1 Type 1 diabetes diagnosed as an adult Current Outpatient Medications: ??? Lantus Solostar U-100 Insulin pen, Inject [...] 9 Device, Rfl: 3 ??? Dexcom G6 Spray Blender Misc, 1 each by Misc.(Non-Drug; Combo Route) route continuous. Use to continuously monitor blood glucose., Disp: 1 each, Rfl: 0 ??? estradioL (ESTRACE) 0.01 % (0.1 mg/gram) Cream, three times a week., Disp: , Rfl: ??? nystatin (MYCOSTATIN) Cream, , Disp: , Rfl: ??? BD Ultra-Fine Short Pen Needle 31 gauge x 5/16 Needle, Inject 1 each subcutaneously 4 times daily. ICD 10 Code: E10.9, Disp: 400 each, Rfl: 3 ??? atorvastatin (LIPITOR) 40 mg Tablet, Take 1 tablet by mouth daily., Disp: 90 tablet, Rfl: 3 ??? UNIFINE PENTIPS 31 gauge x 3/16 [...] mg tablet, , Disp: , Rfl: ??? senna (Senokot) 8.6 mg Tablet, Take by mouth daily., Disp: , Rfl: ??? polyethylene glycol 3350 (MIRALAX ORAL), Take by mouth., Disp: , Rfl: ??? fluconazole (Diflucan) 150 mg Tablet, 150 mg once a week., Disp: , Rfl: ??? glucagon, Human Recombinant, (GLUCAGON EMERGENCY KIT, HUMAN,) 1 mg Recon Soln, Inject 1 mL into the muscle as needed (severe hypoglycemia with unconsciousness). (Patient not taking: Reported on 01/16/2021), Disp: 3 each, Rfl: 3 Allergies Allergen [...] years with 3 children. 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 Nonsmoker ETOH: once a week Social Determinants of Health Financial Resource Strain: ??? Difficulty of Paying Living Expenses: Food Insecurity: ??? Worried About Running Out of Food in the Last Year: ??? Ran Out of Food in the Last Year: Transportation Needs: ??? Lack of Transportation (Medical): ??? Lack of Transportation (Non-Medical): Physical Activity: ??? Days of Exercise per Week: ??? Minutes of Exercise per Session: Stress: ??? Feeling of Stress : Social Connections: ??? Frequency of Communication with Friends and Family: ??? Frequency of Social Gatherings with Friends and Family: ??? Attends Confucianism Services: ??? Active Member of Clubs or Organizations: ??? Attends Club or Organization Meetings: ??? Marital Status: Intimate Partner Violence: ??? Fear of Current or Ex-Partner: ??? Emotionally Abused: ??? Physically Abused: ??? Sexually Abused: No family history on file. Breast cancer [...] other systems reviewed and are negative. BP 115/71 (Patient Position: Sitting) Pulse 76 Temp 36.1 ??C (97 ??F) (Temporal) Resp 16 Ht 171 cm (5' 7.32) Wt 66.2 kg (146 lb) SpO2 97% BMI 22.65 kg/m?? Sclera white Mucous membranes moist Normal respiratory effort Heart regular rate Extremities no edema Skin no rash Neuro nonfocal Labs White count 7.1, ANC 5.1, hemoglobin 10.8, platelets 193 Creatinine 0.7, calcium 8.6, alk phos 87 Assessment and Plan: 66-year-old female who has a new diagnosis of right-sided breast cancer. She had a 2.1 cm triple negative breast cancer and opted for neoadjuvant chemotherapy. She continues to do quite well with her treatment and today is scheduled for cycle 4 of her Adriamycin and cyclophosphamide. Her counts are doing well and we will proceed with cycle 4 today. She will get Neulasta on pro for support. We also discussed the next plan of chemotherapy. We are planning Taxol as the second half of her chemotherapy. Given how well she is done with the first half she would like to continue with the dose dense schedule. I think that is reasonable. We did talk about neuropathy is one of the things we are concerned about. We also talked about infusional reactions. She also had some questions about when surgery would take place once we complete her neoadjuvant therapy. She also asked about genetic testing. I will go ahead and make a familial cancer referral to see if she should be tested for BRCA before she makes her surgical approach. If she were BRCA positive she might consider mastectomy versus partial mastectomy if she is negative. She will return in 2 weeks with plans to initiate dose dense Taxol at that point. documented in this encounter Plan of Treatment Upcoming Encounters Date Type Specialty Care Team Description 10/15/2022 Office Visit Hematology and Oncology Aldo Gaming MD [facility] H[facility]OLOG[facility] [facility] [place] [address] (Wo rk) Scheduled Referrals Name Type Priority Associated Diagnoses Order S chedule Referral to Outpatient Referral Routine Malignant neoplasm Or dered: Familial Cancer of upper-outer 02/27/2021 quadrant of right breast in female, estrogen receptor negative documented as of this encounter Visit Diagnoses Diagnosis Malignant neoplasm of upper-outer quadra nt of right breast in female, estrogen receptor negative documented in this encounter Care Teams Upholsterer Assembly Line Relationship Specialty Start Date End Date Bang Heath MD PCP - General General Internal Medicine 01/18/[address] [place] [address] documented as of this encounter
--- OUTSIDE RECORDS SUMMARY | 2022-09-09 09:39 | XMS_ITS | Encounter Summary ---
:1955 Author Organization [facility] [place] [address] Care Team Providers Name Role Phone Bang Heath MD Primary Care Provider Encounter Details Date Type Department Care Team Description 04/10/2021 Notes Only Hematology/Oncology at Ricarda Pierce MSW [facility] OFFICE OF CARE [address] [place] [phone] Social History Tobacco Use Types Packs/Day Years [...] encounter Progress Notes Ricarda Pierce MSW - 04/10/2021 10:07 AM EDT Follow up with pt during her infusion visit today. Pt indicated she was doing fairly well day to day. 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 She was able to go to a training in person also. She keeps as active as she feels up to enjoying hiking and got out for her first kayak ride of the season. Pt did not identify any new needs today. Offered support. Reminded pt of METALSMITH APPRENTICE availability and contact information. Will continue to follow for support and resources. documented in this encounter Plan of Treatment Upcoming Encounters Date Type Specialty Care Team Description 10/15/2022 Office Visit Hematology and Oncology Aldo Gaming MD [facility] [place] [place] [address] (Wo rk) documented as of this encounter Visit Diagnoses Not on filedocumented in this encounter Care Teams Die Maker Apprentice Relationship Specialty Start Date End Date Bang Heath MD PCP - General General Internal Medicine 01/18/19 [address] [place] [address] documented as of this encounter
--- OUTSIDE RECORDS SUMMARY | 2022-09-09 09:39 | XMS_ITS | Encounter Summary ---
:1955 Author Organization [facility] Address [facility] [place] [address] Care Team Providers Name Role Phone Bang Heath MD Primary Care Provider Encounter Details Date Type Department Care Team Description 04/15/2021 Orders Only General Surgery at Demetra Fernandez neoplasm of [facility] MD Maxim upper-outer quadrant [facility] of right breast in [place], [place] [phone] GENERAL SURGERY receptor negative [phone] [place] [id number] Social History Tobacco Use Types Packs/Day Years [...] Visit Hematology and Oncology Aldo Gaming MD [facility] HEMATOLOGY/ONCOL OGY DEPT. [place], [place] [address] (Wo rk) documented as of this encounter Results Request for 2nd read [...] desired. Please note: The interpretation of the [facility] Breast Imaging Radiologist subspecialist may differ fro m the original radiologists interpretation. This is usually not due to a deficiency of the original interpreting radiologist, rather due to the greater skill level afforded by sub-specialization in the field and/or r easonable variations in interpretations. If you have a concern regarding the D- interpretation you may contact the [facility] Breast [place] Operator Office at . I have personally reviewed [...] who have questions please contact the health medicare interviewer that requested your imaging first. ? Narrative 04/15/2021 4:12 PM EDT INTERPRETATION OF OUTSIDE BREAST IMAGING I have been asked to consult on this pat ient by Dr. Demetra Fernandez because she believes a review of this study may willis ge or alter the care of this patient. STUDIES FROM: [facility] are DATES: 12/26/2020 TYPE OF EXAM: Breast MRI CLINICAL HISTORY: Known breast cancer, s urgical planning; Known breast cancer, surgical planning; What Modality is the exam? Mammography; Body Part (please add comments as necessary): breast; Sending Institution [facility]; Date of exam [id number]; I believe a reinterpretat ion of this exam may alter care of Patient. Yes. ?? COMPARISONS: Prior ultrasound and mammograms of the l eft breast dated 11/19/2020 performed at [facility]. TECHNIQUE: An MRI of the bilateral breas ts was performed following administration of 14 cc of MultiHance on a 1.5T scanner at [facility]. FINDINGS: Interpretation of outside MRI [...] or skin abnor mality visualized. Procedure Note Kristine Nolan MD - 04/15/2021Form atting of this note might be different from the original. INTERPRETATION OF OUTSIDE BREAST IMAGING I have been asked to consult on this pat ient by Dr. Demetra Rosenkranz because she believes a review of this study may willis ge or alter the care of this patient. STUDIES FROM: [facility] are DATES: 12/26/2020 TYPE OF EXAM: Breast MRI CLINICAL HISTORY: Known breast cancer, s urgical planning; Known breast cancer, surgical planning; What Modality is the exam? Mammography; Body Part (please add comments as necessary): breast; Sending Institution [place]; Date of exam [id number]; I believe a reinterpretat ion of this exam may alter care of Patient. Yes. COMPARISONS: Prior ultrasound and mammograms of the l eft breast dated 11/19/2020 performed at [facility]. TECHNIQUE: An MRI of the bilateral breas ts was performed following administration of 14 cc of MultiHance on a 1.5T scanner at [facility]. FINDINGS: Interpretation of outside MRI [...] desired. Please note: The interpretation of the [facility] Breast Imaging Radiologist subspecialist may differ fro m the original radiologists interpretation. This is usually not due to a deficiency of the original interpreting radiologist, rather due to the greater skill level afforded by sub-specialization in the field and/or r easonable variations in interpretations. If you have a concern regarding the [facility] interpretation you may contact the [facility] [place] Operator [facility] at . I have personally reviewed [...] ho have questions please contact the health medicare interviewer that requested your imaging first. Demetra Fernandez MD IMG OUTSIDE INTERPRETATION O RDERABLES documented in this encounter Visit Diagnoses Diagnosis Malignant neoplasm of upper-outer quadra nt of right breast in female, estrogen receptor negative Malignant neoplasm of upper-outer quadra nt of right breast in female, estrogen receptor negative documented in this encounter Care Teams Bus And Trolley Dispatcher Relationship Specialty Start Date End Date Bang Heath MD PCP - General General Internal Medicine 01/18/19 1 [address] [facility] [address] [facility] [place] [address] documented as of this encounter
--- OUTSIDE RECORDS SUMMARY | 2022-09-09 09:39 | XMS_ITS | Encounter Summary ---
:1955 Author Organization [facility] [place] [address] Care Team Providers Name Role Phone Bang Heath MD Primary Care Provider Encounter Details Date Type Department Care Team Description 01/16/2021 Notes Only Hematology/Oncology at Ricarda Pierce DOG CONTROL OFFICER [facility] OFFICE OF CARE [address] [place] [phone] Social History Tobacco Use Types Packs/Day Years [...] encounter Progress Notes Ricarda Pierce MSW - 01/16/2021 10:42 AM EST Reason for Referral: Brief assessment of social and emotional needs. Met with pt during her infusionvisit today. Social Supports: Pt identified her Deep of 42 years as her primary support. They have 2 sonsand a daughter and the closest child lives in [place]. Pt indicated she has many good friends who haveoffered to assist as needed. Living Situation/Daily Activities/Transportation: Pt and manage their daily chores and activities. She does not expect any issues with transportation. 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 She has BCBS for insurance. Advance Directives: Pt has not completed her advance directive. Gave her a [place] booklet/form to review and offered assistance. Requested a copy for her record once done. Utilization of Community Resources: None at this time. Adjustment to Illness/Mental Health Issues: Pt indicated she is coping the best she can. She hs support from her family and friends. She indicated her is having some ups and downs. She enjoys outdoor activities. She also enjoys crocheting, puzzles and reading. Offered support. Identified Needs: Pt did not identify any specific needs at this time. Referrals: None at this time. Plan: Informed pt of DOG CONTROL OFFICER availability and contact information. Will follow for support and resources. documented in this encounter Plan of Treatment Upcoming Encounters Date Type Specialty Care Team Description 10/15/2022 Office Visit Hematology and Oncology Aldo Gaming MD [facility] ER HEMATOLOGY/ONCSIMONE IVAN DEPT. [place], [place] [address] (Wo rk) documented as of this encounter Visit Diagnoses Not on filedocumented in this encounter Care Teams Petroleum Terminal Plant Operator Relationship Specialty Start Date End Date Bang Heath MD PCP - General General Internal Medicine 01/18/19 [address] [place] [address] documented as of this encounter
--- OUTSIDE RECORDS SUMMARY | 2022-09-09 09:39 | XMS_ITS | Encounter Summary ---
:1955 Author Organization [facility] [place] [address] Care Team Providers Name Role Phone Bang Heath MD Primary Care Provider Encounter Details Date Type Department Care Team Description 01/30/2021 Notes Only Hematology/Oncology at Ricarda Pierce MSW [facility] OFFICE OF CARE [address] [place] [address] [phone] Social History Tobacco Use Types Packs/Day Years [...] encounter Progress Notes Ricarda Pierce MSW - 01/30/2021 12:22 PM EST Follow up with pt during her infusion visit today. 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 Pt managing the program with occasional support from others. Offered support. Pt did not identify any new needs at this time. Reminded pt of BAG LOADER availability and contact information. Will continue to follow for support and resources. documented in this encounter Plan of Treatment Upcoming Encounters Date Type Specialty Care Team Description 10/15/2022 Office Visit Hematology and Oncology Aldo Gaming MD [facility] ER HEMATOLOGY/ONCOL [place] DEPT. [place], [place] [address] (Wo rk) documented as of this encounter Visit Diagnoses Not on filedocumented in this encounter Care Teams Soft Tile Setter Relationship Specialty Start Date End Date Bang Heath MD PCP - General General Internal Medicine 01/18/[address] [place] [address] documented as of this encounter
--- OUTSIDE RECORDS SUMMARY | 2022-09-09 09:39 | XMS_ITS | Encounter Summary ---
:1955 Author Organization [facility] [place] [address] Care Team Providers Name Role Phone Bang Heath MD Primary Care Provider Encounter Details Date Type Department Care Team Description 02/06/2021 Orders Only Hematology/Oncology at [facility] BENDER [address] [place], [place] HEMATOLOGY ONCO LOGY [address] [place], [place] [phone] (Wo rk) Social History Tobacco Use Types [...] Visit Hematology and Oncology Aldo Gaming MD [facility] [place] [place] [address] (Wo rk) documented as of this encounter Visit Diagnoses Not on filedocumented in this encounter Care Teams Corporate Banking Officer Relationship Specialty Start Date End Date Bang Heath MD PCP - General General Internal Medicine 01/18/[address] [place] [address] documented as of this encounter
--- OUTSIDE RECORDS SUMMARY | 2022-09-09 09:39 | XMS_ITS | Encounter Summary ---
:1955 Author Organization [facility] [place] [address] Care Team Providers Name Role Phone Bang Heath MD Primary Care Provider Reason for Visit Reason Comments Medication Refill Encounter Details Date Type Department Care Team Description 04/27/2020 Refill Gastroenterology at [facility] Marily Guillermo MD [facility] [place] [address] GASTROENTEROLOGY DEPT. [phone] [place], [place] [address] (Wo rk) Social History Tobacco [...] [facility] ER HEMATOLOGY/ONCOL [place] DEPTSECRETARY, [place] [address] (Wo rk) documented as of this encounter Visit Diagnoses Not on filedocumented in this encounter Care Teams Talent Acquisition Associate Relationship Specialty Start Date End Date Bang Heath MD PCP - General General Internal Medicine 01/18/19 [address] [place] [address] documented as of this encounter
--- OUTSIDE RECORDS SUMMARY | 2022-09-09 09:39 | XMS_ITS | Encounter Summary ---
:1955 Author Organization [facility] [place] [address] Care Team Providers Name Role Phone Bang Heath MD Primary Care Provider Encounter Details Date Type Department Care Team Description 11/13/2020 Ancillary Procedure Radiology Library at Bang Heath MD [facility] [address] [address] [place], [place] [phone] (Wo rk) [phone] Social History Tobacco Use Types Packs/Day Years [...] and Oncology Aldo Gaming MD [facility] HEMATOLOGY/[facility]COL [facility] DEPT. [place], [place] [address] (Wo rk) documented as of this encounter Procedures Procedure Name Priority Date/Time Associated Diagnosis Comme nts FILM LIBRARY Routine 11/13/2020 12:00 AM Results for this STORAGE ONLY MAMMO EST procedure are in the results section. documented in this encounter Results Film Library- Storage Only Mammo (11/13/2020 12:00 AM EST) Specimen (Source) Anatomical Location Collection Method / Collectio n Time Received Time / Laterality Volume Narrative ARMAND - 01/01/2021 4:03 PM EST This exam is auto-finalizing. It's purpo se is for storage only. Bang Heath MD IMG FILM LIBRARY ORDERABLES Performing Organization Address City/State/ZIP Code Phon e Number [place], [place] documented in this encounter Visit Diagnoses Not on filedocumented in this encounter Care Teams Company Truck Driver Relationship Specialty Start Date End Date Bang Heath MD PCP - General General Internal Medicine 01/18/19 [address] [place] [address] documented as of this encounter
--- OUTSIDE RECORDS SUMMARY | 2022-09-09 09:39 | XMS_ITS | Encounter Summary ---
:1955 Author Organization [place] [address] Care Team Providers Name Role Phone Bang Heath MD Primary Care Provider Reason for Visit Reason Onset Date Comments Results 03/24/2021 Encounter Details Date Type Department Care Team Description 03/24/2021 Telephone Hematology and Oncology at Tatyana Estrada LGC Results [facility] Rubin velazquez HEMATOLOGY/[place] [address] DEPT. [phone] [place], [place] [address] (Wo rk) Social History Tobacco [...] this encounter Miscellaneous Notes Telephone Encounter - Tatyana Estrada LGC - 03/25/2021 3:27 PM EDT This test result was discussed with the patient by phone. A copy of the test results have been scanned in the medical record and sent to Tatyana. A summary of the results is provided below. Please be advised that [place] law requires that all health care workers respect the confidentiality of thisinformation and not pass it along to other health care providers, insurance companies, or individuals without the written permission of the patient. The Familial Cancer Program welcomes any questions about these matters. Our phone number is: [phone]. On 03/13/2021, Tatyana underwent genetic testing for a hereditary predisposition to cancers in eight major organ systems including breast, gynecologic, gastrointestinal, endocrine, genitourinary, skin, brain/nervous system, sarcoma and hematologic. Following are the results of this test. Result: [facility] showed no mutation was detected. This means that Tatyana does not carry amutation in the genes detectable by this test. The following 84 genes were evaluated for sequence changes and exonic deletions/duplications: AIP, ALK, APC, VILMA, AXIN2, BAP1, BARD1, BLM, BMPR1A, BRCA1, BRCA2, BRIP1, CASR, CDC73, CDH1, CDK4, CDKN1B, CDKN1C, CDKN2A (p14ARF), CDKN2A (u38OOP4T), CEBPA, CHEK2, CTNNA1, DICER1, DIS3L2, EGFR, EPCAM (Deletion/duplication testing only), FH, FLCN, GATA2, GPC3, GREM1 (Promoter region deletion/duplication testing only), HOXB13, HRAS, KIT, MAX, MEN1, MET, MITF, (c.952G>A,P.Smr253Cnu variant only), MLH1, MSH2, MSH3, MSH6, MUTYH, NBN, NF1, NF2, NTHL1, PALB2, PDGFRA, PHOX2B, PMS2, POLD1, POLE, POT1, SJJUS2T, PTCH1, PTEN, RAD50, RAD51C, RAD51D, RB1, RECQL4, RET, RUNX1, SDHA, SDHAF2, SDHB, SDHC, SDHD, SMAD4, SMARCA4, SMARCB1, SMARCE1, STK11, SUFU, TERC, TERT, RRKJ365, TP53, TSC1, TSC2, VHL, WRN, and WT1. A variant of uncertain significance (VUS) in the DICER1 gene, specifically c.5516G>A (p.Ylh5249Duw), was detected. Interpretation: This test did not identify an underlying genetic cause for the personal history of breast cancer andfamily history of either uterine or ovarian cancer in Sangeeta's paternal grandmother. Possible explanations for this negative test result include: ?? Tatyana's cancer and the cancer in her family may be due to non genetic, environmental causes. ?? There could be a mutation in Tatyana's family that Tatyana did not inherit. It is possible that Sangeeta'spaternal grandmother who had a gynecologic cancer at age 45 could have had a mutation. ?? There could be mutations in other cancer genes not included in this test, or in genes yet to be discovered. ?? There is a very small chance that a pathogenic variant/mutation could be missed due to limitations in the testing. Additional genetic testing for Tatyana is not recommended at this time. It is unclear at this time whether the DICER1 VUS identified in Tatyana is a cancer-associated mutation or a benign change in the gene with no increased cancer risks. [employer] is continually collecting and analyzing their data, in an effort to reclassify these variants as either cancer-causing mutations or benign changes. It is important to remember that a vast majority of variants of uncertain significance are normal, benign changes in the gene. We will be contacted by the laboratory, in the future, if a reclassification is made and we would then notify Tatyana. It is important that Tatyana's phone number and mailing address stay updated in the [facility] system, in order for us to reach her in the future, should an amended report be issued. Family members should NOT be tested for the variant of uncertain significance identified in Tatyana in order to find out their own cancer risks. Screening Recommendations Based on genetic test results and personal and/or family history, we recommend: Breast cancer screening ?? Clinical breast exams and imaging as recommended by Tatyana's oncologists. Gynecologic cancer screening ?? Pelvic exams and/or Pap smears as recommended by Tatyana's support representative or primary care provider. Colon cancer screening ?? Periodic colonoscopy screening as recommended by Tatyana's reporting lead. Skin cancer screening ?? Skin cancer screening and sun protection are important for everyone, regardless of genetic predisposition. ?? Consideration of routine dermatologic/skin exams, as recommended by Tatyana's primary care provideror feedlot manager. documented in this encounter Plan of Treatment Upcoming Encounters Date Type Specialty Care Team Description 10/15/2022 Office Visit Hematology and Oncology Aldo Gaming MD [facility] ER HEMATOLOGY[place] [address] (Wo rk) documented as of this encounter Visit Diagnoses Not on filedocumented in this encounter Care Teams Manager Psychiatry Relationship Specialty Start Date End Date Bang Heath MD PCP - General General Internal Medicine 01/18/19 7 [address] [place] [address] documented as of this encounter
--- OUTSIDE RECORDS SUMMARY | 2022-09-09 09:39 | XMS_ITS | Encounter Summary ---
:1955 Author Organization [place] [address] Care Team Providers Name Role Phone Bang Heath MD Primary Care Provider Encounter Details Date Type Department Care Team Description 04/15/2021 Telephone Hematology [place] [address] Social History Tobacco Use Types Packs/Day [...] Telephone Encounter - Mely Brock - 04/15/2021 11:46 AM EDT Patient Info: Tatyana Skelton 1955 Attn: Pathology Department (UV) From: [facility] [phone] [x]Urgent [x] For Review [] Please Reply []Please Recycle Comments: Please overnight all Pathology slides to include Core Biopsy's and Surgical Path. Slides to include ER/NH & Her2. Mail to: Department of Pathology, [facility], Attn: [place] [address] Fed-Ex # [id number] If questions please call [phone] Notice of Confidentiality: The documents accompanying this FAX transmission cover contain information from [facility] that is confidential and privileged. The information [...] of the documents at no cost to you documented in this encounter Plan of Treatment Upcoming Encounters Date Type Specialty Care Team Description 10/15/2022 Office Visit Hematology and Oncology Aldo Gaming MD [facility] HEMATOLOGY/ONCOL [facility] DEPT. [place], [place] [address] (Wo rk) documented as of this encounter Visit Diagnoses Not on filedocumented in this encounter Care Teams Foreign Car Mechanic Relationship Specialty Start Date End Date Bang Heath MD PCP - General General Internal Medicine 01/18/19 [address] [place] [address] documented as of this encounter
--- OUTSIDE RECORDS SUMMARY | 2022-09-09 09:39 | XMS_ITS | Encounter Summary ---
:1955 Author Organization [facility] [address] Care Team Providers Name Role Phone Bang Heath MD Primary Care Provider Reason for Visit Reason Comments Chemotherapy Cycle 6 Day 1 Paclitaxel Injections Onpro application Treatment/Therapy Plan Authorization (Routine) - Closed Specialty Diagnoses / Procedures Referred By Contact Refer red To Contact Hematology and Diagnoses Malignant neoplasm of upper-outer quadrant of right female breast Estrogen receptor negative status (ER-) Aldo Gaming MD [facility] Hem Onc Oncology Procedures TC PEGFILGRASTIM-JMDB, BIOSIMILAR, 0.5 MG, INJECTION TC APREPITANT, 1 MG, INJECTION TC PALONOSETRON HCL, 25MCG, INJECTION (ALOXI) TC DOXORUBICIN HCL, 10MG, INJECTION (ADRIAMYCIN) Q5108 pegfilgrastim-jmdb (Fulphila) [facility] Infusion J0185 aprepitant (CINVANTI) J2469 palonosetron (Aloxi) J9000 DOXOrubicin (Adriamycin) J9070 cyclophosphamide (CYTOXAN) NO AUTH NEEDED - J9267 PACLitaxeL (Taxol) 308 mg [facility] HEMATOLOGY/[place] [phone] Phone: Fax: Referral ID Status Reason Start Date Expiration Date Visits Requ ested Visits Authorized [id number] Closed 12/17/2020 12/21/2021 99 99 Encounter Details Date Type Department Care Team Description 03/27/2021 Infusion Hematology Oncology at [facility] upper-outer quadrant of [address] [place] [address] Drive right breast in female, [facility], [place] [phone] estrogen receptor negative [phone] Social History Tobacco Use Types Packs/Day Years [...] encounter Progress Notes Yuliet Watson RN - 03/27/2021 11:30 AM EDT INFUSION THERAPY ADMINISTRATION NOTES DIAGNOSIS: Breast Cancer CYCLE #:6 Day 1 REASON FOR VISIT: Paclitaxel Chemotherapy & Onpro SUBJECTIVE Tatyana offers no complaints. Seen by KNOT TIER in clinic. OBJECTIVE LAB DATA: Done today at [facility]- WBC 8.23, Hgb 10.9, Hct 33.6, PLT 210, ANC 6.37, BUN 10, Cr 0.7 EF 67% on 01/14 IV ACCESS: Mediport accessed at [facility] for lab draw, blood return present and flushes easily. Port flushed with 20cc NS and 500 units Heparin then de-accessed after completion of treatment. Pre administration: Chemotherapy orders independently verified for drug name, route, and dosage per patient's height, weight and BSA by Yuliet Watson, ANDREW & [facility] onsite. REACTIONS (DESCRIPTION, TIME, INTERVENTION AND EFFECTIVENESS) none ASSESSMENT Tatyana was awake, alert and tolerated treatment well. Neulasta Onpro applied to GRAHAM. Due to deploy [id number] on 03/28, instructed to remove at 1940 PM when light is solid green. PLAN Return to clinic as scheduled. documented in this encounter Plan of Treatment Upcoming Encounters Date Type Specialty Care Team Description 10/15/2022 Office Visit Hematology and Oncology Aldo Gaming MD [facility] HEMATOLOGY/ONCOL [facility] DEPT. [place], [place] [address] (Wo rk) documented as of this encounter Visit Diagnoses Diagnosis Malignant neoplasm of upper-outer quadra nt of right breast in female, estrogen receptor negative documented in this encounter Administered Medications Inactive Administered Medications - up to 3 most recent administrations Medication Order MAR Action Action Date Dose Rate Site dexamethasone (Decadron) injection Given 03/27/2021 12:02 PM EDT 10 mg 10 mg 10 mg, Intravenous, ONCE, 1 dose, On Kacy 03/27/21 at 1200, Administer 30 minutes prior to PACLitaxel diphenhydrAMINE (Benadryl) capsule 50 mg Given 03/27/2021 11:56 AM EDT 50 mg 50 mg, Oral, ONCE, 1 dose, On Kacy 03/27/21 at 1200, Administer 30 minutes prior to PACLitaxel, Routine famotidine (Pepcid) (10 mg/mL) injection 20 Given 03/27/2021 12:00 PM EDT 20 mg mg 20 mg, Intravenous, ONCE, 1 dose, On Kacy 03/27/21 at 1200, Administer 30 minutes prior to PACLitaxel heparin (pf) (porcine) (100 units/mL) Given 03/27/2021 3:54 PM E DT 500 Units flush 5 mL syringe 500 Units 500 Units, Intravenous, ONCE PRN, Starting on Kacy 03/27/21 at 1144, Until Kacy 03/27/21 at 1813, Line Care, Refer to Intravenous (IV) Procedure: Accessing Implanted Vascular Access Devices (824) procedure and/or Intravenous (IV) Job Aid: Adult Flushing & Catheter Care (8880) job aid for additional information regarding guidelines and administration., Routine ondansetron (Zofran) tablet 8 mg Given 03/27/2021 11:56 AM EDT 8 mg 8 mg, Oral, ONCE, 1 dose, On Kacy 03/27/21 at 1200, Administer prior to chemotherapy, Routine PACLitaxeL (Taxol) 308 mg in New Bag 03/27/2021 12:38 PM EDT 308 m g 184 mL/hr sodium chloride 0.9% Non-PVC 551.3333 mL infusion 308 mg (175 mg/m2/dose ? 1.76 m2 Treatment Plan BSA from Recorded weight), Intravenous, ONCE, 1 dose, On Kacy 03/27/21 at 1300, Administer over 3 Hours, Warning Vesicant/Irritant Medication pegfilgrastim (Neulasta Onpro) (6 Given 03/27/2021 3:40 PM EDT 6 mg Right Arm mg/0.6 mL) injection kit 6 mg 6 mg, Subcutaneous, ONCE, 1 dose, On Kacy 03/27/21 at 1200, Allow the prefilled syringe co-packaged with the on-body injector to reach room temperature at least 30 minutes prior to administration., Routine, This agent is restricted to outpatient use. Is this drug being given as an outpatient? Yes sodium chloride 0.9 % (flush) flush 5-20 mL Given 03/27/2021 3:53 PM EDT 20 mLs 5-20 mL, Intravenous, EVERY 1 MIN PRN, Starting on Kacy 03/27/21 at 1144, Until Kacy 03/27/21 at 1813, Line Care, Flush pertains to all indwelling lines. Flush per protocol found in the job aid using the link provided on this medication record. Refer to Intravenous (IV) Job Aid: Adult Flushing & Catheter Care (0958) job aid for additional information regarding guidelines and administration., Routine sodium chloride 0.9% infusion New Bag 03/27/2021 12:02 PM EDT 1,000 mLs 1,000 mL, Intravenous, ONCE, 1 dose, On Kacy 03/27/21 at 1200 documented in this encounter Care Teams Feather Cutting Machine Feeder Relationship Specialty Start Date End Date Bang Heath MD PCP - General General Internal Medicine 01/18/19 [address] [place] [address] documented as of this encounter
--- OUTSIDE RECORDS SUMMARY | 2022-09-09 09:39 | XMS_ITS | Encounter Summary ---
:1955 Author Organization [facility] [address] Care Team Providers Name Role Phone Bang Heath MD Primary Care Provider Encounter Details Date Type Department Care Team Description 11/27/2020 Ancillary Procedure Radiology Library at Bang Heath MD [facility] [address] [address] [place], [place] [phone] (Wo rk) [phone] Social History Tobacco Use Types Packs/Day Years [...] Visit Hematology and Oncology Aldo Gaming MD [facility] HEMATOLOGY/ONCOL MAR[place] DEPT. [place], [place] [address] (Wo rk) documented as of this encounter Procedures Procedure Name Priority Date/Time Associated Diagnosis Comme nts FILM Routine 11/27/2020 12:00 AM Results for this LIBRARY-STORAGE EST procedure ar e in ONLY US BREAST the results section. documented in this encounter Results Film Library Storage Only US Breast (11/27/2020 12:00 AM EST) Specimen (Source) Anatomical Location Collection Method / Collectio n Time Received Time / Laterality Volume Narrative ARMAND - 01/01/2021 4:04 PM EST This exam is auto-finalizing. It's purpo se is for storage only. Bang Heath MD IMG FILM LIBRARY ORDERABLES Performing Organization Address City/State/ZIP Code Phon e Number [place], [place] documented in this encounter Visit Diagnoses Not on filedocumented in this encounter Care Teams Bulk Station Operator Relationship Specialty Start Date End Date Bang Heath MD PCP - General General Internal Medicine 01/18/19 [address] [place] [address] documented as of this encounter
--- OUTSIDE RECORDS SUMMARY | 2022-09-09 09:39 | XMS_ITS | Encounter Summary ---
:1955 Author Organization [facility] Address [facility] [address] [place] [address] Care Team Providers Name Role Phone Bang Heath MD Primary Care Provider Encounter Details Date Type Department Care Team Description 02/13/2021 Office Visit Hematology/Oncology Celestina Gaming MD [facility] DR HEMATOLOGY/[place] [address] Malignant neoplasm of at [facility] Karli Leavitt APRN [address] [place] [address] DR HEMATOLOGY ONCOLOGY [place], [place] [id number] upper-outer quadrant [address] [place] [address] Drive of right breast in [place], [place] female, [place] [phone] receptor negative [phone] Social History Tobacco Use Types Packs/Day Years [...] Sign Reading Time Taken Comments Blood Pressure 124/75 02/13/2021 11:03 AM EDT Pulse 73 02/13/2021 11:03 AM EDT Temperature 37.2 ??C (98.9 ??F) 02/13/2021 11:03 AM EDT Respiratory Rate 20 02/13/2021 11:03 AM EDT Oxygen Saturation 97% 02/13/2021 11:03 AM EDT Inhaled Oxygen Concentration - - Weight 66.1 kg (145 lb 12.8 oz) 02/13/2021 11:03 AM EDT Height 167.6 cm (5' 5.98) 02/13/2021 11:03 AM EDT Body Mass Index 23.54 02/13/2021 11:03 AM EDT documented in this encounter Progress Notes Karli Leavitt, [place] - 02/13/2021 11:00 AM EDT Subjective: Patient ID: Tatyana [...] Biopsies negative. ?? CT scan 07/25/13 ( [facility] [place] [facility]) : Thickening of [...] is a 65-year-old female seen in the [facility]. ?? 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 ER was negative, MI was negative, HER-2 was negative. MRI scan [...] Adriamycin and cyclophosphamide 01/16/2021 ?? 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 She feels C2 affected her energy level a bit more. She still did a 5 mile snowshoe the first week, perhaps a little slower and she was more tired afterward. Today she feels well. Tatyana notes she had less nausea this cycle. Her taste is intact and her appetite is a little less. She did have a couple of mouth sores inside her right cheek which cleared. She had diarrhea one day, otherwise is moving her bowels regularly. She is drinking at least 2 quarts of fluid daily, likely more. Tatyana also noted some eye and nose symptoms. 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 She also had a runny nose with clear drainage. No sore throat, no cough, no shortness of breath. She took Claritin and did not have any noticeable aches after Neulasta. She has noticed her brain seems lagging. She has been carefully monitoring her glucose. It has not gone higher that 250 in the first two days, maybe once or twice, then normalizes. She did not speak with the federal judicial law clerk as it was short-lived. She is feeling a little anxious about eventual breast surgery. We talked a little about it. She is due for her first COVID vaccine soon. Im not thinking about reconsructive surgery. I will WINSTON shot on Wednesday. She turned 66 last week and was thrilled she had a birthday car parade. Allergies Allergen Reactions ??? Contrast [Iodine And Iodide Containing Products] Nausea And Vomiting and Other (See Comments) Neck swelling ??? Lisinopril Other (See Comments) Caused a dry cough ??? Lactose Diarrhea Current Medications ??? loratadine (Claritin) 10 mg Tablet ??? senna (Senokot) 8.6 mg Tablet ??? polyethylene glycol 3350 (MIRALAX ORAL) ??? LORazepam (Ativan) 0.5 mg Tablet ??? ascorbic acid, vitamin C, (VITAMIN C) 500 mg Tablet, Chewable ??? vit A/vit C/vit E/zinc/copper (ICAPS AREDS ORAL) ??? metFORMIN (Glucophage) 500 mg Tablet ??? levothyroxine (SYNTHROID) 175 mcg Tablet ??? sulfaSALAzine (Azulfidine) 500 mg Tablet ??? OneTouch Verio Strip ??? Dexcom G6 Transmitter Device ??? Dexcom G6 Sensor Device ??? Dexcom G6 Sales Representative [employer] Misc ??? fluconazole (Diflucan) 150 mg Tablet [...] ??? atenolol (TENORMIN) 25 mg tablet ??? prochlorperazine (Compazine) 10 mg Tablet ??? glucagon, Human Recombinant, (GLUCAGON EMERGENCY KIT, HUMAN,) 1 mg Recon Soln Social History Tobacco Use ??? Smoking status: Never Smoker ??? Smokeless tobacco: Never Used Substance Use Topics ??? Alcohol use: No ??? Drug use: No Review of Systems Constitutional: Positive for fatigue. Mild for a few days HENT: Positive for mouth sores and rhinorrhea. Two mouth sores in cheek Eyes: Positive for pain. Feels strained Respiratory: Negative for cough and shortness of breath. Cardiovascular: Negative for chest pain and palpitations. Gastrointestinal: Positive for nausea. Negative for constipation, diarrhea and vomiting. Mild, less than last week Genitourinary: Negative. Musculoskeletal: Negative for back pain. [...] normal. Thought Content: Thought content normal. BP 124/75 (Patient Position: Sitting) Pulse 73 Temp 37.2 ??C (98.9 ??F) (Temporal) Resp 20 Ht 167.6 cm (5' 5.98) Wt 66.1 kg (145 lb 12.8 oz) SpO2 97% BMI 23.54 kg/m?? LABS 01/30/21 WBC 7.11; ANC 4.72; H/H 12.0/36.7; PLT 201; BUN 12; CREAT 0.7; BILI 0.3; ALP 85; AST 18; ALT 39; CA++ 8.6; GLU 110. LABS 02/13/21 WBC 7.24; ANC 5.06; H/H 11.5/ 35.3; PLT 187; BUN 11; CREAT 0.7; CA++9.2; BILI 0.4; ALP 87; AST 14; ALT 34. 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 Tatyana returns to the [facility] oncology clinic in [facility] today for evaluation and C3D1 A/C with Neulasta. She tolerated C2 pretty well with minor GI toxicities and fatigue. She had blood sugar fluctuations in the first week of treatment CBC and CMP were reviewed with Tatyana today and meet treatment parameters. Plan: Proceed with C3 A/C today and Neulasta support tomorrow. Tatyana turns 66 this week and we will see if ONPRO is approved under new insurance. RTC 2 weeks for ddC4 A/C. Continue good oral hydration. documented in this encounter Plan of Treatment Upcoming Encounters Date Type Specialty Care Team Description 10/15/2022 Office Visit Hematology and Oncology Aldo Gaming MD [facility] HEMATOLOGY/ONCOL [place] DEPT. [place], [place] [address] (Wo rk) documented as of this encounter Visit Diagnoses Diagnosis Malignant neoplasm of upper-outer quadra nt of right breast in female, estrogen receptor negative documented in this encounter Care Teams Lead Presser Relationship Specialty Start Date End Date Bang Heath MD PCP - General General Internal Medicine 01/18/[address] [facility] 1 [place] [address] documented as of this encounter
--- OUTSIDE RECORDS SUMMARY | 2022-09-09 09:39 | XMS_ITS | Encounter Summary ---
:1955 [place] [address] Care Team Providers Name Role Phone Bang Heath MD Primary Care Provider Encounter Details Date Type Department Care Team Description 12/13/2020 Ancillary Procedure Radiology Library at [place] [facility] [place] [address] HEMATOLOGY/ONCOLOGY [phone] [place], [place] [address] (Wo rk) Social History Tobacco [...] Visit Hematology and Oncology Aldo Gaming MD [facility] ER HEMATOLOGY/ONCOL OGY DEPT. [place], [place] [address] (Wo rk) documented as of this encounter Procedures Procedure Name Priority Date/Time Associated Diagnosis Comme nts FILM LIBRARY Routine 12/13/2020 12:00 AM Results for this STORAGE ONLY DX EST procedure ar e in CHEST the results section. documented in this encounter Results Film Library- Storage Only DX Chest (12/13/2020 12:00 AM EST) Specimen (Source) Anatomical Location Collection Method / Collectio n Time Received Time / Laterality Volume Narrative ARMAND - 12/31/2020 10:17 PM EST This exam is auto-finalizing. It's purpo se is for storage only. Shar Kong MD [facility] FILM LIBRARY ORDERABLES Performing Organization Address City/State/ZIP Code Phon e Number [place], [place] documented in this encounter Visit Diagnoses Not on filedocumented in this encounter Care Teams Cabin Outfitter Relationship Specialty Start Date End Date Bang Heath MD PCP - General General Internal Medicine 01/18/19 [address] [place] [address] documented as of this encounter
--- OUTSIDE RECORDS SUMMARY | 2022-09-09 09:39 | XMS_ITS | Encounter Summary ---
:1955 Author Organization [place] [address] Care Team Providers Name Role Phone Bang Heath MD Primary Care Provider Encounter Details Date Type Department Care Team Description 03/10/2021 Notes Only Hematology and Oncology at Guillermo Palafox MD [facility] Rubin velazquez HEMATOLOGY/[place] [address] [place] [address] [phone] (Wo rk) Social History Tobacco Use Types [...] documented as of this encounter Progress Notes Guillermo Higgins MD - 03/10/2021 12:26 PM EDT I have reviewed the patient's record and given personal and/or family history of cancer she should be seen by genetic counselor. This is scheduled for later this week. documented in this encounter Plan of Treatment Upcoming Encounters Date Type Specialty Care Team Description 10/15/2022 Office Visit Hematology and Oncology Aldo Gaming MD [facility] [place] [address] (Wo rk) documented as of this encounter Visit Diagnoses Not on filedocumented in this encounter Care Teams Frameman Relationship Specialty Start Date End Date Bang Heath MD PCP - General General Internal Medicine 01/18/[address] [place] [address] documented as of this encounter
--- OUTSIDE RECORDS SUMMARY | 2022-09-09 09:39 | XMS_ITS | Encounter Summary ---
:1955 Author Organization [facility] [place] [address] Care Team Providers Name Role Phone Bang Heath MD Primary Care Provider Encounter Details Date Type Department Care Team Description 01/16/2021 Office Visit Hematology/Oncology Karli Leavitt Ma lignant neoplasm of at [facility] [place], [place] upper-outer quadrant [address] of right breast in [place], [place] HEMATOLOGY ONCO LOGY female, estrogen [phone] [place], [place] receptor negative [phone] (Wo rk) Social History Tobacco Use Types [...] documented as of this encounter Progress Notes Karli Leavitt APRN - 01/16/2021 8:30 AM EST Tatyana Vaughan is a 65 yo female diagnosed 11/17 with right breast lobular adenocarcinoma, ER/IL- and Her-2 CASSIE negative who presents today for chemotherapy teaching by herself today. I did review with Tatyana her is welcome to be part of the visit via phone. The plan is for Adriamycin and Cyclophosphamide to be given for 4 cycles with Neulasta support, followed by 4 cycles of Taxol to be given with Neulasta support. The following information was reviewed with the patient and family. Antitumor Therapy Schedule: Adriamycin/Cytoxan/Neulasta every 2 weeks for 4 cycles. This will be followed by Taxol/Neulasta every 2 weeks for 4 cycles. Laboratory Tests: CBC, CMP (reviewed with Tatyana today) Provider Visits: At the start of every cycle and as needed for problems. ??? Possible Side Effects include, but are not limited to: fatigue, low blood counts leading to infection, fever and bleeding; nausea, diarrhea, constipation, stomatitis, heart abnormalities, hair loss, neuropathy, achy muscles and joints. Transient rise in blood sugars due to dexamethasone also discussed. ??? Adriamycin ??? Cyclophasphamide ??? Taxol ??? Neulasta (or bio-similar) ??? Medications: the following prescriptions should be picked up before starting treatment Lorazepam 0.5 mg po q6hrs prn anxiety/nausea. #30 Compazine 10 mg po q6hrs prn nausea. #30 Prescriptions sent for Lorazepam and Compazine. We also discussed trying Claritin for 3-4 days beginning on day of Neulasta to decrease bony aches. We also discussed having both Immodium and Senna tablets on hand to manage constipation or diarrhea. Plan: .Tatyana Skelton was given written information regarding treatment regimen, side effects and management strategies.. Tatyana was given an opportunity to ask questions and verbalized understanding of the information and treatment plan. No barriers to learning were identified. Tatyana was counseled onhow to call for any further questions or concerns. Tatyana is very active and gets adequate daily exercise. She is encouraged to continue as tolerated through treatment. ??? Treatment is scheduled to begin on today. ??? Testing/Diagnostics o Baseline blood work was reviewed and is adequate for treatment ??? Supportive Care: ??? Smoking cessation: N/A ??? Psychosocial: ??? Distress Screening: Baseline assessment performed today. .distress. Tatyana is calm and appropriate today. She has helped her through chemotherapy in the past. He will be helping to support her through treatment. ? Follow up: Return to clinic tomorrow for Neulasta and in 2 weeks for C2 A/C. 45 minutes of this 45 minute face to face encounter was spent in counseling, education and coordination of care. documented in this encounter Plan of Treatment Upcoming Encounters Date Type Specialty Care Team Description 10/15/2022 Office Visit Hematology and Oncology Aldo Gaming MD [facility] ER [facility] [place] [place] [address] (Wo rk) documented as of this encounter Visit Diagnoses Diagnosis Malignant neoplasm of upper-outer quadra nt of right breast in female, estrogen receptor negative documented in this encounter Care Teams Firestopper Installer Relationship Specialty Start Date End Date Bang Heath MD PCP - General General Internal Medicine 01/18/[address] [place] [address] documented as of this encounter
--- OUTSIDE RECORDS SUMMARY | 2022-09-09 09:39 | XMS_ITS | Encounter Summary ---
:1955 Author Organization [facility] [place] [address] Care Team Providers Name Role Phone Bang Heath MD Primary Care Provider Reason for Visit Reason Onset Date Comments Medication Refill 02/17/2021 Encounter Details Date Type Department Care Team Description 02/17/2021 Refill Endocrinology at [facility] Fabio Hernandez MD [facility] [place] [address] ENDOCRINOLOGY DEPT [phone] [place], [place] [address] (Wo rk) Social History Tobacco [...] and Oncology Aldo Gaming MD [facility] ER HEMATOLOGY/ONCOL [place] DEPT. [place], [place] [address] (Wo rk) documented as of this encounter Visit Diagnoses Not on filedocumented in this encounter Care Teams Chef Manager Relationship Specialty Start Date End Date Bang Heath MD PCP - General General Internal Medicine 01/18/19 1 [address] [place] [address] documented as of this encounter
--- OUTSIDE RECORDS SUMMARY | 2022-09-09 09:39 | XMS_ITS | Encounter Summary ---
:1955 Author Organization [facility] [place] [address] Care Team Providers Name Role Phone Bang Heath MD Primary Care Provider Encounter Details Date Type Department Care Team Description 01/02/2021 [place] [address] Social History Tobacco Use Types Packs/Day [...] 1 each by 600 each 3 01/18/2019 [facility] Misc.(Non-Drug; Combo Route) route 6 times daily. 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 To be adults), managed as changed every 10 days. type 1 fluconazole (Diflucan) 150 mg once a week. 0 /04/202004/24/2021 150 mg Tablet humaLOG KwikPen 100 Inject [...] [facility] DEPT. [place], [place] [address] (Wo rk) documented as of this encounter Procedures Procedure Name Priority Date/Time Associated Diagnosis Comme nts SURGICAL PATHOLOGY Routine 01/02/2021 2:25 PM Res ults for this REPORT EST procedure are i n the results section. documented in this encounter Results Surgical Pathology Report (01/02/2021 2:25 PM EST) Component Value Ref Test Analysis Performed At [facility] Range Method Time Signature Surgical [id number] ? Location: [facility] Pathology [place] Report The signing pathologist has (i) examined the relevant preparation(s) for the [facility] specimen(s) and (ii) rendered or confirmed the diagnosis(es) . HOSPITAL LABORATORY . ?Surgic al Pathology DIAGNOSIS CONSULTATION CASE A - ??Needle biopsies: ??Right breast, 10:35 mass Diagnosis: ? At least microinvasive lobular carcinoma, intermediate grade (see discussion) Microcalcifications: ??N/A ER, WI, and HER2 studies (reviewed) ER: Negative (0%) WI: Negative (0%) HER2 IHC: Negative (score 0) B - Needle biopsies: ??Right breast, 10:35 mass Diagnosis: ?Benign breast tissue with dense fibrosis Microcalcifications: ??N/A C - Needle biopsies: ??Right breast, 10:35 mass Diagnosis: ?Benign breast tissue with dense fibrosis Microcalcifications: ??N/A Electronically signed by: ??Vahid MCGINNIS, Emeterio Conklin Verified: ??01/03/2021 ?Pathologist Performed at: ??-[facility] Dept. of Pathology, [facility], [place], [place] DISCUSSION Two foci (<1 mm) of invasive lobular carcinoma with histiocytoid features are present at the edge of one core. Gi whitney the limited amount of tumor present in this sample, suggest repeating ER, WI, a nd HER2 studies on the surgical specimen when available. SPECIMEN(S) SUBMITTED CONSULTATION CASE A - 18 slide(s) labeled [id number], collection date 11/27/20 20. [id number] Report to: [facility] Surgical Pathology Department [facility], [facility], 2nd Floor [address], [place] ??[address] CLINICAL INFORMATION Right breast mass SPECIMEN PROCESSING Pathology slide(s) are reviewed. Refer t o Diagnosis and Specimen Submitted for specific case information. . SPECIMEN PROCESSING For the full text of the [facility] report(s) please refer to Non- Documentation Pat hology in the electronic health record ( ?eDH). Specimen (Source) Anatomical Collection Method Collection Time Re ceived Time Location / / Volume Laterality 01/02/2021 2:25 PM EST Aldo Gaming MD PATHOLOGY/CYTOLOGY ORDERABLE S Performing Organization Address City/State/[place] [address] documented in this encounter Visit Diagnoses Not on filedocumented in this encounter Care Teams Thermal Technician Relationship Specialty Start Date End Date Bang Heath MD PCP - General General Internal Medicine 01/18/[address] [place] [address] documented as of this encounter
--- OUTSIDE RECORDS SUMMARY | 2022-09-09 09:39 | XMS_ITS | Encounter Summary ---
:1955 Author Organization [facility] [place] [address] Care Team Providers Name Role Phone Bang Heath MD Primary Care Provider Reason for Visit Reason Comments Chemotherapy Cycle 5, Day 1 Taxol Injections Neulasta OnPRO Treatment/Therapy Plan Authorization (Routine) - Closed Specialty Diagnoses / Procedures Referred By Contact Refer red To Contact Hematology and Diagnoses Malignant neoplasm of upper-outer quadrant of right female breast Estrogen receptor negative status (ER-) Aldo Gaming MD [facility] Hem Onc Oncology Procedures TC PEGFILGRASTIM-JMDB, BIOSIMILAR, 0.5 MG, INJECTION TC APREPITANT, 1 MG, INJECTION TC PALONOSETRON HCL, 25MCG, INJECTION (ALOXI) TC DOXORUBICIN HCL, 10MG, INJECTION (ADRIAMYCIN) Q5108 pegfilgrastim-jmdb (Fulphila) [facility] Infusion J0185 aprepitant (CINVANTI) J2469 palonosetron (Aloxi) J9000 DOXOrubicin (Adriamycin) J9070 cyclophosphamide (CYTOXAN) NO AUTH NEEDED - J9267 PACLitaxeL (Taxol) [address] Johnson [facility] HEMATOLOGY/[place] [phone] Phone: Fax: Referral ID Status Reason Start Date Expiration Date Visits Requ ested Visits Authorized [id number] Closed 12/17/2020 12/21/2021 99 99 Encounter Details Date Type Department Care Team Description 03/13/2021 Infusion Hematology Oncology at [facility] of [address] [place] [address] Drive right breast in female, [facility] [place] [phone] estrogen receptor negative [phone] Social History Tobacco Use Types Packs/Day Years [...] encounter Progress Notes Eb Borden RN - 03/13/2021 11:30 AM EDT INFUSION THERAPY ADMINISTRATION NOTES DIAGNOSIS: Breast Cancer CYCLE #:5 Day 1 REASON FOR VISIT: Taxol Chemotherapy & Onpro SUBJECTIVE Tatyana offers no complaints. Seen by DENTAL EQUIPMENT TECHNICIAN in clinic. OBJECTIVE LAB DATA: Done today at [facility]- WBC 5.05, Hgb 9.6, Hct 30.0, PLT 150k, ANC 3.47, BUN 9, Cr 0.7 EF 67% on 01/14 IV ACCESS: Mediport accessed at [facility] for lab draw, blood return present and flushes easily. Port flushed with 20cc NS and 500 units Heparin then de-accessed after completion of treatment. Pre administration: Chemotherapy orders independently verified for drug name, route, and dosage per patient's height, weight and BSA by Eb Borden, ANDREW & [facility] onsite. REACTIONS (DESCRIPTION, TIME, INTERVENTION AND EFFECTIVENESS) none ASSESSMENT Tatyana was awake, alert and tolerated treatment well. Neulasta Onpro applied to MED. Due to deploy [id number] on 03/14, instructed to remove at 8 PM when light is solid green. PLAN Return to clinic as scheduled. documented in this encounter Plan of Treatment Upcoming Encounters Date Type Specialty Care Team Description 10/15/2022 Office Visit Hematology and Oncology Aldo Gaming MD [facility] ER HEMATOLOGY/ONCOL [place] DEPT. [place], [place] [address] (Wo rk) documented as of this encounter Visit Diagnoses Diagnosis Malignant neoplasm of upper-outer quadra nt of right breast in female, estrogen receptor negative documented in this encounter Administered Medications Inactive Administered Medications - up to 3 most recent administrations Medication Order MAR Action Action Date Dose Rate Site dexamethasone (Decadron) injection Given 03/13/2021 11:40 AM EDT 10 mg 10 mg 10 mg, Intravenous, ONCE, 1 dose, On Kacy 03/13/21 at 1145, Administer 30 minutes prior to PACLitaxel diphenhydrAMINE (Benadryl) capsule 50 mg Given 03/13/2021 11:37 AM EDT 50 mg 50 mg, Oral, ONCE, 1 dose, On Kacy 03/13/21 at 1145, Administer 30 minutes prior to PACLitaxel, Routine famotidine (Pepcid) (10 mg/mL) injection 20 Given 03/13/2021 11:38 AM EDT 20 mg mg 20 mg, Intravenous, ONCE, 1 dose, On Kacy 03/13/21 at 1145, Administer 30 minutes prior to PACLitaxel heparin (pf) (porcine) (100 units/mL) Given 03/13/2021 4:00 PM E DT 500 Units flush 5 mL syringe 500 Units 500 Units, Intravenous, ONCE PRN, Starting on Kacy 03/13/21 at 1128, Until Kacy 03/13/21 at 1812, Line Care, Refer to Intravenous (IV) Procedure: Accessing Implanted Vascular Access Devices (364) procedure and/or Intravenous (IV) Job Aid: Adult Flushing & Catheter Care (7104) job aid for additional information regarding guidelines and administration., Routine ondansetron (Zofran) tablet 8 mg Given 03/13/2021 11:38 AM EDT 8 mg 8 mg, Oral, ONCE, 1 dose, On Kacy 03/13/21 at 1145, Administer prior to chemotherapy, Routine PACLitaxeL (Taxol) 308 mg in New Bag 03/13/2021 12:41 PM EDT 308 m g 184 mL/hr sodium chloride 0.9% Non-PVC 551.3333 mL infusion 308 mg (175 mg/m2/dose ? 1.76 m2 Treatment Plan BSA from Recorded weight), Intravenous, ONCE, 1 dose, On Kacy 03/13/21 at 1245, Administer over 3 Hours, Warning Vesicant/Irritant Medication pegfilgrastim (Neulasta Onpro) (6 mg/0.6 mL) Given 03/13/2021 3: 58 PM EDT 6 mg injection kit 6 mg 6 mg, Subcutaneous, ONCE, 1 dose, On Kacy 03/13/21 at 1145, Allow the prefilled syringe co-packaged with the on-body injector to reach room temperature at least 30 minutes prior to administration., Routine, This agent is restricted to outpatient use. Is this drug being given as an outpatient? Yes sodium chloride 0.9 % (flush) flush 5-20 mL Given 03/13/2021 4:00 PM EDT 20 mLs 5-20 mL, Intravenous, EVERY 1 MIN PRN, Starting on Kacy 03/13/21 at 1128, Until Kacy 03/13/21 at 1812, Line Care, Flush pertains to all indwelling lines. Flush per protocol found in the job aid using the link provided on this medication record. Refer to Intravenous (IV) Job Aid: Adult Flushing & Catheter Care (8404) job aid for additional information regarding guidelines and administration., Routine sodium chloride 0.9% infusion New Bag 03/13/2021 11:35 AM EDT 1,000 mLs 1,000 mL, Intravenous, ONCE, 1 dose, On Kacy 03/13/21 at 1145 documented in this encounter Care Teams Power Barker Operator Relationship Specialty Start Date End Date Bang Heath MD PCP - General General Internal Medicine 01/18/[address] [place] [address] documented as of this encounter
--- OUTSIDE RECORDS SUMMARY | 2022-09-09 09:39 | XMS_ITS | Encounter Summary ---
:1955 Author Organization [facility] [place] [address] Care Team Providers Name Role Phone Bang Heath MD Primary Care Provider Encounter Details Date Type Department Care Team Description 01/24/2021 Telephone Hematology Oncology at Yuliet Watson RN [address] [phone] Social History Tobacco Use [...] this encounter Miscellaneous Notes Telephone Encounter - Yuliet Watson RN - 01/24/2021 9:11 AM EST TRIAGE CALL Caller: Tatyana Reason for Call: lower back pain Symptom Review: Onset: yesterday evening Location: near or below the tail bone Duration: all the time, dull with shooting pain What makes it better: tylenol, wants to try salonpas patch What makes it worse: shoveled snow yesterday, ? If she did too much. Timing of symptoms: when sitting gets shooting pain, dull all the time 2/10 pain Review of Systems related to Reason for Call: Integumentary: Not Assessed Head (ENT/Neuro): Not Assessed Respiratory: Not Assessed Cardiac: Not Assessed GI: Not Assessed : Not Assessed Musculoskeletal: Pos Pertinent Positive and Negative findings: dull back pain tail bone and down, started yesterday evening after shoveling. Using tylenol with some relief. Select specific Decision Support Tool used: Telephone Triage for Oncology Nurses, 3rd Edition, ONCJulian and Frederic, 2019 Disposition: Telephone advice Plan of Care: Continue to use tylenol, add in salonpas patches, hydrate well, take rest periods whenexercising, keep diary of symptoms. Per Decision Support Tool (note specific protocol from text selected above): Mild to moderate aches and pains: follow homecare instructions. Pg 240. Patient/responsible caregiver able to read back instructions/plan of care? yes Recommendations for worsening condition given to patient/responsible caregiver? Call MD if no improvement. Seek emergency care for excruciating pain, immobility, loss of bladder control, bilateral extremity weakness. Patient/responsible caregiver able to read back actions for worsening condition? yes Patient/responsible caregiver intends to comply with action/disposition? yes Follow up needed? no If yes, outline: of note, pt scheduled for MD visit on 01/30. She will call before then if needed. Additional symptom mentioned: Vaginal itch, chronic, uses hydrocortisone cream, fluconazole once weekly if it gets bad enough. Tatyana wanted to make sure it was fine to continue this regimen. I advised these medications are on her med list and have been reviewed by the providers so shouldn't be a problem. She agreed. documented in this encounter Plan of Treatment Upcoming Encounters Date Type Specialty Care Team Description 10/15/2022 Office Visit Hematology and Oncology Aldo Gaming MD [facility] [place] [place] [address] (Wo rk) documented as of this encounter Visit Diagnoses Not on filedocumented in this encounter Care Teams Advance Scout Relationship Specialty Start Date End Date Bang Heath MD PCP - General General Internal Medicine 01/18/[address] [place] [address] documented as of this encounter
--- OUTSIDE RECORDS SUMMARY | 2022-09-09 09:39 | XMS_ITS | Encounter Summary ---
:1955 Author Organization [facility] [place] [address] Care Team Providers Name Role Phone Bang Heath MD Primary Care Provider Reason for Visit Reason Comments Genetic Evaluation Consultation (Routine) - Closed Specialty Diagnoses / Procedures Referred By Contact Refer red To Contact Hematology and Oncology Diagnoses Malignant neoplasm of upper-outer quadrant of right breast in female, estrogen receptor negative Aldo Gaming MD [facility] [address] [place] HEMATOLOGY/ONCOLOGY [phone] [place] [address] Referral ID Status Reason Start Date Expiration Date Visits V isits Requested Authorized [id number] Closed Consult, 02/27/2021 02/27/2022 1 1 Test & Treat Encounter Details Date Type Department Care Team Description 03/13/2021 TH Visit Hematology and EstradaTatyana, Malignant n eoplasm of upper- outer quadrant of right breast in female, estrogen receptor negative; (TeleHealth) Oncology at [facility] FHx: ovarian cancer [facility] [address] [place] HEMATOLOGY/ONCOL[place] [id number] [place] DEPT. [phone] [place], [place] [address] Social History Tobacco Use Types [...] as of this encounter Progress Notes Tatyana Estrada LGC - 03/13/2021 10:00 AM EDT Tatyana Skelton was seen by MARY Portillo in consultation at the request of Aldo Gaming to advise regarding possible heritable predisposition to cancer. I spent 30 minutes of this face to face telehealth encounter with the patient gathering medical and family history and discussing the likelihood of a genetic predisposition to cancer and the option of genetic testing. Reason for referral/Chief complaint Personal history of breast cancer and family history of ovarian and other cancers. Medical history Cancer hx and treatment: triple negative microinvasive lobular cancer diagnosed at age 65. Currentlybeing treated with sancho-adjuvant chemotherapy. Surgery is planned for after completion of chemo. Age at 1st menses: 18 Age at 1st child: 27 Menopause status: post- menopause Oral contraceptive use: used for about 3 years Hormone replacement therapy use: none Current cancer screening: annual mammograms, colonoscopy every 3 years due to ulcerative colitis andsome polyps, skin checks with primary care. Family History of cancer Problem Relation Age of Onset ??? Prostate Cancer Brother 74 ??? Ovarian Cancer (not certain if ovarian vs. Uterine) Paternal Grandmother 45 at age 51 ??? Breast Cancer Maternal Great-Grandmother Mother's MGM ??? Uterine Cancer Maternal Aunt 81 ??? Melanoma Leukemia Maternal Cousin 68 74 ??? Melanoma Maternal Cousin 74 ??? Stomach Cancer LIver Cancer Maternal Cousin 65 ??? Lung Cancer Maternal Cousin 40 at 48 Maternal ethnic background is [place], . Paternal ethnic background is Scandinavian, [place]. No known Ashkenazi Synagogue heritage. Genetic risk assessment Based on personal history of breast cancer and family history of likely ovarian cancer in her paternal grandmother, the likelihood that Tatyana would be found to have a mutation in a cancer predisposition gene is high enough to offer the option of genetic testing. Panel genetic testing for an inherited predisposition to cancer, including breast, gynecologic and other cancers was discussed. The risks, benefits and limitations of panel genetic testing were reviewed, specifically a high rate of identifying a variant of uncertain significance, lack of knowledge of cancer risk for newly identified, moderate risk genes included in the panel and lack of effective screening, as well as cancer risk for othercancers not observed in the family. Tatyana opted for testing with [employer] Multi-Cancer Panel, a next generation sequencing panel that simultaneously analyzes 84 genes, including BRCA1 and BRCA2, that contribute to increased risk for cancer. Tatyana was consented. Her blood sample was drawn and sent to [facility]. Testing will take up to 3 weeks. Tatyana will be contacted via telephone once her test results become available. If positive, we will offer a follow-up appointment. At that time, we will discuss with Tatyana the implications that this test result may have for her, as well as her family members. We will also provide Tatyana with screening guidelines for cancer prevention and early detection, as well as answer any questions she may have. 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
--- OUTSIDE RECORDS SUMMARY | 2022-09-09 09:40 | XMS_ITS | Encounter Summary ---
:1955 Author Organization [facility] [place] [address] Care Team Providers Name Role Phone Bang Heath MD Primary Care Provider Encounter Details Date Type Department Care Team Description 06/29/2019 Hospital Encounter Gastroenterology at [facility] Marily Guillermo, [facility] [place] [address] [facility] [phone] CENTER GASTROENTEROLOGY DEPT. [place], [place] [address] Social History Tobacco Use Types [...] Sign Reading Time Taken Comments Blood Pressure 112/83 06/29/2019 4:20 PM EDT Pulse 65 06/29/2019 4:05 PM EDT Temperature 36.4 ??C (97.5 ??F) 06/29/2019 1:42 PM EDT Respiratory Rate 16 06/29/2019 4:20 PM EDT Oxygen Saturation 99% 06/29/2019 4:20 PM EDT Inhaled Oxygen Concentration - - Weight 63.5 kg (140 lb) 06/29/2019 1:42 PM EDT Height 170.2 cm (5' 7) 06/29/2019 1:42 PM EDT Body Mass Index 21.93 06/29/2019 1:42 PM EDT documented in this encounter Discharge Instructions Discharge InstructionsCaroline Falcon RN - 06/29/2019 4:17 PM EDT Images from the original note were not included. Colonoscopy: What to Expect at Home Your Recovery After you have a colonoscopy, you will stay at the clinic for 1 to 2 hours until the medicines wear off. Then you can go home. But you will need to arrange for a ride. Your doctor will tell you when you can eat and do your other usual activities. Your doctor will talk to you about when you will need your next colonoscopy. Your doctor can help you decide how often you need to be checked. This will depend on the results of your test and your riskfor colorectal cancer. After the test, you may be bloated or have gas pains. You may need to pass gas. If a biopsy was doneor a polyp was removed, you may have streaks of blood in your stool (feces) for a few days. Problemssuch as heavy rectal bleeding may not occur until several weeks after the test. This isn't common. But it can happen after polyps are removed. This care sheet gives you a general idea about how long it will take for you to recover. But each person recovers at a different pace. Follow the steps below to get better as quickly as possible. How can you care for yourself at home? Activity ? Rest when you feel tired. ? You can do your normal activities when it feels okay to do so. Diet ? Follow your doctor's directions for eating. ? Unless your doctor has told you not to, drink plenty of fluids. This helps to replace the fluids that were lost during the colon prep. ? Do not drink alcohol. Medicines ? Your doctor will tell you if and when you can restart your medicines. He or she will also giveyou instructions about taking any new medicines. ? If you take blood thinners, such as warfarin (Coumadin), clopidogrel (Plavix), or aspirin, be sure to talk to your doctor. He or she will tell you if and when to start taking those medicines again. Make sure that you understand exactly what your doctor wants you to do. ? If polyps were removed or a biopsy was done during the test, your doctor may tell you not to take aspirin or other anti-inflammatory medicines for a few days. These include ibuprofen (Advil, Motrin) and naproxen (Aleve). Other instructions ? For your safety, do not drive or operate machinery until the medicine wears off and you can think clearly. Your doctor may tell you not to drive or operate machinery until the day after your test. ? Do not sign legal documents or make major decisions until the medicine wears off and you can think clearly. The anesthesia can make it hard for you to fully understand what you are agreeing to. Follow-up care is a chowdhury part of your treatment and safety. Be sure to make and go to all appointments, and call your doctor if you are having problems. It's also a good idea to know your test results and keep a list of the medicines you take. When should you call for help? Call 911 anytime you think you may need emergency care. For example, call if: ? You passed out (lost consciousness). ? You pass maroon or bloody stools. ? You have trouble breathing. ??Call your doctor now or seek immediate medical care if: ? You have pain that does not get better after you take pain medicine. ? You are sick to your stomach or cannot drink fluids. ? You have new or worse belly pain. ? You have blood in your stools. ? You have a fever. ? You cannot pass stools or gas. ??Watch closely for changes in your health, and be sure to contact your doctor if you have any problems. Where can you learn more? Visit our health information library at [email or web address]. You can also view health information on Therative, your personal patient account. Log in or sign up today. Enter E264 in the search box to learn more about Colonoscopy: What to Expect at Home. Current as of: November 16, 2018 Content Version: 12.1 ?? [id number] [employer]andhalf. Care instructions adapted under license by [facility]. If you have questions about a medical condition or this instruction, always ask your healthcare professional. [employer] disclaims any warranty or liability for your use of this information. Colon Polyps: Care Instructions Your Care Instructions Colon polyps are growths in the colon or the rectum. The cause of most colon polyps is not known, and most people who get them do not have any problems. But a certain kind can turn into cancer. For this reason, regular testing for colon polyps is important for people as they get older. It is also important for anyone who has an increased risk for colon cancer. Polyps are usually found through routine colon cancer screening tests. Although most colon polyps are not cancerous, they are usually removed and then tested for cancer. Screening for colon cancer saves lives because the cancer can usually be cured if it is caught early. If you have a polyp that is the type that can turn into cancer, you may need more tests to examine your entire colon. The doctor will remove any other polyps that he or she finds, and you will be tested more often. Follow-up care is a chowdhury part of your treatment and safety. Be sure to make and go to all appointments, and call your doctor if you are having problems. It's also a good idea to know your test results and keep a list of the medicines you take. How can you care for yourself at home? Regular exams to look for colon polyps are the best way to prevent polyps from turning into colon cancer. These can include stool tests, sigmoidoscopy, colonoscopy, and CT colonography. Talk with your doctor about a testing schedule that is right for you. To prevent polyps There is no home treatment that can prevent colon polyps. But these steps may help lower your risk for cancer. ?? Stay active. Being active can help you get to and stay at a healthy weight. Try to exercise on most days of the week. Walking is a good choice. ?? Eat well. Choose a variety of vegetables, fruits, legumes (such as peas and beans), fish, poultry, and whole grains. ?? Do not smoke. If you need help quitting, talk to your doctor about stop- smoking programs and medicines. These can increase your chances of quitting for good. ?? If you drink alcohol, limit how much you drink. Limit alcohol to 2 drinks a day for men and 1 drink a day for women. When should you call for help? Call your doctor now or seek immediate medical care if: ? You have severe belly pain. ? Your stools are maroon or very bloody. ??Watch closely for changes in your health, and be sure to contact your doctor if: ? You have a fever. ? You have nausea or vomiting. ? You have a change in bowel habits (new constipation or diarrhea). ? Your symptoms get worse or are not improving as expected. Where can you learn more? Visit our health information library at [email or web address]. You can also view health information on Therative, your personal patient account. Log in or sign up today. Enter C571 in the search box to learn more about Colon Polyps: Care Instructions. Current as of: November 16, 2018 Content Version: 12.1 ?? [id number] Fourandhalf. Care instructions adapted under license by [facility]. If you have questions about a medical condition or this instruction, always ask your healthcare professional. [employer] disclaims any warranty or liability for your use of this information. Please call [phone] before 8pm Mon-Fri with problems, questions or concerns. If you call after 8pm or on weekends, call the Hospital at [phone] and ask to speak to the Branch Services Manager extraction supervisor and the chlorinator operator will contact that person for you. documented in this encounter Medications at Time of Discharge Medication Sig Dispensed Refills Start Date End Date ONE TOUCH DELICA 33 1 each by [...] atenolol (TENORMIN) 25 0 03/07/2010 mg tablet LORazepam (ATIVAN) 0.5 0 05/08/2019 mg Tablet UNIFINE PENTIPS 31 USE 1 PEN NEEDLE FOUR 3 201803/12/2021 gauge x 3/16 Needle TIMES A DAY TO INJECT INSULIN metFORMIN (GLUCOPHAGE) Take 2 tablets by 180 tablet 3 201812/21/2019 500 mg mouth 2 times daily TabletIndications: (with meals). Type 1 diabetes mellitus without complication sulfaSALAzine Take 4 tablets by 720 tablet 3 04/05/201911/2019 (AZULFIDINE) 500 mg mouth 2 times daily. Tablet LANTUS SOLOSTAR U-100 Inject 14 Units 15 mL 3 9 11/22/2019 INSULIN pen subcutaneously every morning. insulin lispro Inject 1-6 Units 15 mL 3 01/18/201901/27 (HUMALOG) Insulin Pen subcutaneously 3 times daily (before meals). BD ULTRA-FINE SHORT Inject 1 each 600 each 3 01/18/2019 PEN NEEDLE 31 gauge x subcutaneously 4 times 04/13 Needle daily. ONETOUCH VERIO Strip Check blood glucose 6 600 each 3 12/3104/11/2020 times daily and additionally as needed. levothyroxine Take 175 mcg by mouth 0 06/08/2018 08/23/2019 (SYNTHROID) 150 mcg daily. Tablet documented as of this encounter H&P Notes Marily Guillermo MD - 06/29/2019 3:12 PM EDT Gastroenterology and Hepatology Pre-Procedure History and Physical Exam Procedure: Colonoscopy: Indication: surveillance Patient Active Problem List Diagnosis Code ??? UC (ulcerative colitis) K51.90 ??? HTN (hypertension) I10 ??? Hypothyroidism E03.9 ??? History of diverticulitis Z87.19 EXAM: HEENT: Airway examined, oropharynx clear Mallampati Score: I (soft palate, uvula, fauces, tonsillar pillars visible) LUNGS: Clear to auscultation HEART: Regular [...] [facility] HEMATOLOGY/[facility] [place] DEPT. [place], [place] [address] (Wo rk) documented as of this encounter Procedures Procedure Name Priority Date/Time Associated Diagnosis Comme nts SPECIMEN TO Routine 06/29/2019 4:06 PM Results f or this PATHOLOGY EDT procedure are i n the results section. SPECIMEN TO Routine 06/29/2019 3:57 PM Results f or this PATHOLOGY EDT procedure are i n the results section. SPECIMEN TO Routine 06/29/2019 3:57 PM Results f or this PATHOLOGY EDT procedure are i n the results section. SPECIMEN TO Routine 06/29/2019 3:57 PM Results f or this PATHOLOGY EDT procedure are i n the results section. SPECIMEN TO Routine 06/29/2019 3:57 PM Results f or this PATHOLOGY EDT procedure are i n the results section. SURGICAL PATHOLOGY Routine 06/29/2019 3:36 PM Res ults for this REPORT EDT procedure are i n the results section. COLONOSCOPY Routine 06/29/2019 3:24 PM Results f or this EDT procedure are i n the results section. COLONOSCOPY, 06/29/2019 3:12 PM [place] in 2 years for POLYPECTOMY, REMOVAL EDT IBD surveillance fro m LESION BY SNARE 06/08/17 (WRVU 4.67) COLONOSCOPY 06/29/2019 3:12 PM [place] in 2 years for FLEXIBLE, WITH BX EDT IBD surveillance from (WRVU 3.66) 06/08/17 POCT GLUCOSE Routine 06/29/2019 1:46 PM Results f or this EDT procedure are i n the results section. POCT FINGERSTICK Routine 06/29/2019 1:44 PM Resul ts for this GLUCOSE EDT procedure are i n the results section. documented in this encounter Results Specimen to Pathology (06/29/2019 4:06 PM EDT) Specimen Anatomical Collection Method Collection Time Receive d Time (Source) Location / / Volume Laterality AP Specimen 06/29/2019 4:06 PM 9 4:06 EDT PM EDT Narrative [facility] - 06/29/2019 4:06 PM EDT Specimen requisition ordered. ??Separate Pathology report to follow L Pedro Luis Guillermo MD PATHOLOGY/CYTOLOGY ORDERABLE S Performing Organization Address [facility] [place] [address] Specimen to Pathology (06/29/2019 3:57 PM EDT) Specimen Anatomical Collection Method Collection Time Receive d Time (Source) Location / / Volume Laterality AP Specimen 06/29/2019 3:57 PM 9 3:57 EDT PM EDT Narrative [facility] - 06/29/2019 3:57 PM EDT Specimen requisition ordered. ??Separate Pathology report to follow L Pedro Luis Guillermo MD PATHOLOGY/CYTOLOGY ORDERABLE S Performing Organization Address City/[facility] [place] [address] Specimen to Pathology (06/29/2019 3:57 PM EDT) Specimen Anatomical Collection Method Collection Time Receive d Time (Source) Location / / Volume Laterality AP Specimen 06/29/2019 3:57 PM 9 3:57 EDT PM EDT Narrative [facility] - 06/29/2019 3:57 PM EDT Specimen requisition ordered. ??Separate Pathology report to follow L Pedro Luis Guillermo MD PATHOLOGY/CYTOLOGY ORDERABLE S Performing Organization Address City/[facility] [place] [address] Specimen to Pathology (06/29/2019 3:57 PM EDT) Specimen Anatomical Collection Method Collection Time Receive d Time (Source) Location / / Volume Laterality AP Specimen 06/29/2019 3:57 PM 9 3:57 EDT PM EDT Narrative [facility] - 06/29/2019 3:57 PM EDT Specimen requisition ordered. ??Separate Pathology report to follow L Pedro Luis Guillermo MD PATHOLOGY/CYTOLOGY ORDERABLE S Performing Organization Address [facility]/ZIP [facility] [place] [address] Specimen to Pathology (06/29/2019 3:57 PM EDT) Specimen Anatomical Collection Method Collection Time Receive d Time (Source) Location / / Volume Laterality AP Specimen 06/29/2019 3:57 PM 9 3:57 EDT PM EDT Narrative [facility] - 06/29/2019 3:57 PM EDT Specimen requisition ordered. ??Separate Pathology report to follow L Pedro Luis Guillermo MD PATHOLOGY/CYTOLOGY ORDERABLE S Performing Organization Address [facility] [place] [address] Surgical Pathology Report (06/29/2019 3:36 PM EDT) Component Value Ref Test Analysis Performed At [facility] gist Range Method Time Signature Surgical [id number] ? Location: 4T; EA07; A [facility] Report The signing pathologist has (i) examined the relevant preparation(s) for the [facility] specimen(s) and (ii) rendered or confirmed the diagnosis(es) . HOSPITAL LABORATORY . ?Surgic al Pathology DIAGNOSIS A - Right colon, biopsy: Inactive chronic colitis. B - Transverse colon, biopsy: Inactive chronic colitis. C - Descending colon, biopsy: Inactive chronic colitis. D - Rectosigmoid colon, biopsy: Inactive to focal mildly active chronic proctocolitis. E - Rectum, polypectomy: Hyperplastic polyp. NOTE: ??No dysplasia is seen. CR-PX Electronically signed by: ??Rao Matute MD Verified: ??07/03/2019 ?Pathologist Performed at: ??-[facility] Dept. of Pathology, [place], [place] CLINICAL INFORMATION Specimen Submitted: A - Right colon bx B - Transverse colon bx C - Descending colon bx D - Recto sigmoid bx E - Rectal polyp 3 mm, 3 mm Clinical History and Diagnosis: Surveillance for ulcerative colitis, 64 years old female/col onoscopy SPECIMEN PROCESSING A - Labeled/Fixative: Right colon biopsy, formalin. Quantity/Size: Multiple, ranging from 0.2-0.5 cm. Tissue Description: Soft, wilkerson-pink tissues. Sections/Processing: Submitted en toto ??in 3 cassettes labeled A1-A3. B - Labeled/Fixative: Transverse colon biopsy, formalin. Quantity/Size: Multiple, ranging from 0.2-1.0 cm. Tissue Description: Soft, wilkerson-white tissues. Sections/Processing: Submitted en toto ??in 2 cassettes labeled B1-B2. C - Labeled/Fixative: Descending colon biopsy, formalin. Quantity/Size: Multiple, ranging from 0.1-0.6 cm. Tissue Description: Soft, wilkerson-white tissues. Sections/Processing: Submitted en toto ??in 3 cassettes labeled C1-C3. . SPECIMEN PROCESSING D - Labeled/Fixative: Rectosigmoid biopsy, formalin. Quantity/Size: Multiple, ranging from 0.2-0.6 cm. Tissue Description: Soft, red-wilkerson tissues. Sections/Processing: Submitted en toto ??in 2 cassettes labeled D1-D2. E - Labeled/Fixative: Rectal polyp 3 mm, 3 mm, formalin. Quantity/Size: Two, averaging 0.4 cm. Tissue Description: Slightly firm, wilkerson-pink polyps. Sections/Processing: Submitted en toto ??in 1 cassette labeled E1. ??apb Specimen (Source) Anatomical Collection Method Collection Time Re ceived Time Location / / Volume Laterality 06/29/2019 3:36 PM EDT L Pedro Luis Guillermo MD PATHOLOGY/CYTOLOGY ORDERABLE S Performing Organization Address City/State/[place] [address] COLONOSCOPY (06/29/2019 3:24 PM EDT) [facility] Method Time Signature COLONOSCOPY [facility] Endoscopy Procedure Date: 06/29/2019 3:24 PM ? Patient Name: Tatyana Skelton ? Date of : 1955 ? Age: 64 ? Order #: [id number] ? Instrument Name: [id number] ? Procedure: ? Colonoscopy Indications: ? High risk colon cancer surveillance : ? Ulcerative colitis Patient Profile: ? This is a 64 year old female. This ? patient has ulcerative pancol itis, is ? taking sulfasalazine and is ? experiencing mild symptoms. Providers: ? Chele Guillermo MD, Erika Vaz ? Nadira, RN, Sonny Prado, Felix Grossman MD: ?Bang Heath Medicines: ? Midazolam 4 mg IV, Fentanyl 150 ? micrograms IV Complications: ? No immediate complications. Procedure: ? Pre-Anesthesia Assessment: ? - Prior to the procedure, a H istory ? and Physical was performed, a nd ? patient medications and aller gies ? were reviewed. The patient is ? competent. The risks and bene fits of ? the procedure and the sedatio n ? options and risks were discus sed with ? the patient. All questions we re ? answered and informed consent was ? obtained. Patient identificat ion and ? proposed procedure were verif ied by ? the physician in the pre-proc edure ? area in the endoscopy suite. Mental ? Status Examination: alert and ? oriented. Airway Examination: normal ? oropharyngeal airway and neck ? mobility. Respiratory Examina tion: ? clear to auscultation. CV ? Examination: normal. ASA Grad e ? Assessment: II - A patient wi th mild ? systemic disease. After revie wing the ? risks and benefits, the patie nt was ? deemed in satisfactory condit ion to ? undergo the procedure. The an esthesia ? plan was to use moderate ct tion / ? analgesia (conscious sedation ). ? Immediately prior to administ ration ? of medications, the patient w as ? re-assessed for adequacy to r eceive ? sedatives. The heart rate, ? respiratory rate, oxygen satu rations, ? blood pressure, adequacy of p ulmonary ? ventilation, and response to care ? were monitored throughout the ? procedure. The physical statu s of the ? patient was re-assessed after the ? procedure. ? The procedure, indications, b enefits, ? risks and alternatives were e xplained ? to the patient. Specifically ? discussed were potential ? complications including, but not ? limited to, bleeding, perfora tion, ? infection, missing a cancer, and ? adverse medication reactions. The ? patient was placed in the lef t ? lateral decubitus position, a nd a ? digital rectal exam was perfo rmed. ? The Colonoscope was inserted in the ? anus and under direct visuali zation, ? advanced to the terminal ileu m, with ? identification of the appendi ceal ? orifice and IC valve. Careful ? inspection was made as the ? colonoscope was withdrawn. Th e ? colonoscopy was performed wit ann ? difficulty. The patient manuel ated the ? procedure well. The quality o f the ? bowel preparation was evaluat ed using ? the BBPS (Somers Bowel Prepar ation ? Scale) with scores of: Right Colon = ? 3 (entire mucosa seen well wi th no ? residual staining, small frag ments of ? stool or opaque liquid), Zimmerman sverse ? Colon = 3 (entire mucosa seen well ? with no residual staining, sm all ? fragments of stool or opaque liquid) ? and Left Colon = 3 (entire mu cosa ? seen well with no residual st aining, ? small fragments of stool or o paque ? liquid). The total BBPS score equals ? 9. The quality of the bowel ? preparation was excellent. Sc ope ? withdrawal time was 25 minute s. ? Findings: ? The perianal and digital rectal examinations were ? normal. ? The terminal ileum appeared normal. ? Inflammation characterized by erythema and ? granularity was found in one small patch surrounded ? by normal mucosa in the sigmoid colon in an area of ? moderate diverticular disease. The inflammation was ? mild in severity. Eight biopsies were obtained with ? cold forceps for surveillance randomly each from the ? right colon, transverse, descending and rectosigmoid ? colon. ? Two sessile polyps were found in the rectum. Pit ? pattern most consistent with hyperplastic polyps. The ? polyps were 3 mm in size. These polyps were removed ? with a cold snare. Resection and retrieval were ? complete. ? Moderate Sedation: ? I was present during the intraservice time as ? documented by the sedation RN. Impression: ?- Ulcerative colitis. Mild single ? patch of inflammation was fou nd in ? the sigmoid colon. ? - The examined portion of the ileum ? was normal. ? - Two 3 mm polyps in the rect um, ? removed with a cold snare. Re sected ? and retrieved. ? - Eight biopsies were obtaine d each ? from the right colon, transve rse, ? descending and rectosigmoid c olon. ? - Sigmoid diverticulosis. Recommendation: ?- Await pathology results. ? - Continue sulfasalazine. ? - Follow-up in IBD Clinic. ? Attending Participation: ? I personally performed the entire procedure. ? I was present during the intraservice time as ? documented by the sedation RN. ? L. Pedro Luis Guillermo MD 06/29/2019 4:10:11 PM Number of Addenda: 0 Note Initiated On: 06/29/2019 3:24 PM Specimen (Source) Anatomical Collection Method Collection Time Re ceived Time Location / / Volume Laterality 06/29/2019 3:24 PM EDT Bang Heath MD GENERAL SURGICAL ORDERABLES Performing Organization Address City/State/ZIP Code Phon e Number [facility] POCT Glucose (06/29/2019 1:46 PM EDT) P athologist Signature POC Glucose 127 65 - [address] [address] Comment: Supplemental ranges: <140 mg/dL before meals <180 mg/dL all other times of the day Specimen Anatomical Collection Method Collection Time Receive d Time (Source) Location / / Volume Laterality Blood specimen 06/29/2019 1:46 PM 019 1:46 (specimen) EDT PM EDT L Pedro Luis Guillermo MD POINT OF CARE TEST ORDERABLE S Performing Organization Address City/State/[place] [address] POCT Fingerstick Glucose (06/29/2019 1:44 PM EDT) P athologist Signature POC Glucose 127 60 - 199 mg/dl Specimen (Source) Anatomical Collection Method Collection Time Re ceived Time Location / / Volume Laterality 06/29/2019 1:44 PM EDT L Pedro Luis Guillermo MD POINT OF CARE TEST ORDERABLE S documented in this encounter Visit Diagnoses Not on filedocumented in this encounter Administered Medications Inactive Administered Medications - up to 3 most recent administrations Medication Order MAR Action Action Date Dose Rate Site lactated ringers infusion New Bag 06/29/2019 1:45 PM EDT 100 mL/hr 100 mL/hr 100 mL/hr, Intravenous, CONTINUOUS, Starting on Kacy 06/29/19 at 1400, Until Kacy 06/29/19 at 1640, Endoscopy (Day of Procedure) documented in this encounter Active and Recently Administered Medications Times are shown in EDT. Continuous Medication Order 06/27/2019 06/28/2019 06/29/2019 lactated ringers infusion (CANCELED) 1345 (New Bag - Provider: Kalyani Bates RN) 100 mL/hr, at 100 mL/hr, Intravenous, CO NTINUOUS, Starting Kacy 06/29/19 at 1400, Until Kacy 06/29/19 at 1640, Endo (Day of Procedure) PRN Medication Order 06/27/2019 06/28/2019 06/29/2019 fentaNYL 50 mcg/mL multi-dose injection (CANCELED) 1517 (Given - Provider: Erika Waddell RN)1520 (Given - Provider: Erika Waddell RN)1526 (Given - Provider: Erika Waddell RN)1529 (Given - Provider: Erika Waddell, RN) ONCE PRN, Starting Kacy 06/29/19 at 1517, U ntil Kacy 06/29/19 at 1846, Intra-Operative (Intra-Procedure), Routine midazolam (PF) (VERSED) multi-dose injection (CANCELED) 1517 (Given - Provider: Erika Waddell RN)1520 (Given - Provider: Erika Waddell, ANDREW)1526 (Given - Provider: Erika Waddell, ANDREW)1529 (Given - Provider: Erika Waddell RN) ONCE PRN, Starting Kacy 81/19 at 1517, U ntil Kacy 06/29/19 at 1846, Intra-Operative (Intra-Procedure), Routine documented in this encounter Care Teams Crusher Assembler Relationship Specialty Start Date End Date Bang Heath MD PCP - General General Internal Medicine 01/18/19 [address] [place] [address] documented as of this encounter
--- OUTSIDE RECORDS SUMMARY | 2022-09-09 09:40 | XMS_ITS | Encounter Summary ---
:1955 Author Organization [facility] [place] [address] Care Team Providers Name Role Phone Tatyana Grande MD Primary Care Provider Reason for Visit Reason Comments Medication Refill Encounter Details Date Type Department Care Team Description 04/22/2017 [place] [facility] [place], [facility] [place] [address] [facility] [phone] GASTROENTEROLOGY DEPT. [place], [place] [address] (Wo rk) Social History Tobacco Use Types Packs/Day Years Used Date Never Smoker Alcohol Use Standard Drinks/Week Comments Yes 0 (1 standard drink = 0.6 oz pure alcoho l) 5 Alcohol Habits Answer Date Recorded How often do you have a drink containing alcohol? Not asked How many drinks containing alcohol do you have on a typical Not asked day when you are drinking? How often do you have six or more drinks on one occasion? No t asked Comment: 5 06/27/2015 Transportation Needs Answer Date Recorded In the [...] Hematology and Oncology Aldo Gaming MD [facility] MEDICAL [facility] HEMATOLOGY/[facility] [place] [address] (Wo rk) documented as of this encounter Visit Diagnoses Not on filedocumented in this encounter Care Teams Electronic Assembler Relationship Specialty Start Date End Date Tatyana Grande MD PCP - General 09/17/14 06/07/17 [address] [place] [address] documented as of this encounter
--- OUTSIDE RECORDS SUMMARY | 2022-09-09 09:40 | XMS_ITS | Encounter Summary ---
:1955 Author Organization [facility] [place] [address] Care Team Providers Name Role Phone Tatyana Grande MD Primary Care Provider Encounter Details Date Type Department Care Team Description 06/27/2015 Hospital Encounter Gastroenterology at [facility] [place] Marily Cano, [facility] [place] [address] [facility] [phone] CENTER GASTROENTEROLOGY DEPT. [place], [place] [address] Social History Tobacco Use Types [...] Sign Reading Time Taken Comments Blood Pressure 124/65 06/27/2015 2:07 PM EDT Pulse 71 06/27/2015 2:07 PM EDT Temperature - - Respiratory Rate 12 06/27/2015 2:07 PM EDT Oxygen Saturation 97% 06/27/2015 2:07 PM EDT Inhaled Oxygen Concentration - - Weight - - Height - - Body Mass Index - - documented in this encounter Discharge Instructions Discharge InstructionsBrett Martínez RN - 06/27/2015 2:09 PM EDT Colonoscopy What to expect after the procedure You may feel a little more gassy or bloated than usual. This is normal. You should expect the return of normal bowel function in the 2 to 3 days. Activity Because of the sedation that you received your judgement and reaction time are effected ?? Go home and rest quietly for the remainder of the day. You may resume your normal activities tomorrow. ?? Change from one position to the next slowly. You may lose your balance unexpectedly ?? Be careful on stairs, as you may be unsteady on your feet FOR THE NEXT 24 HRS ?? DO NOT DRIVE OR OPERATE ANY MACHINERY ?? DO NOT DRINK ALCOHOLIC BEVERAGES ?? DO NOT SIGN LEGAL DOCUMENTS ?? If you are a smoker: DO NOT SMOKE WHILE YOU ARE ALONE Diet ?? Start by eating small portions of foods that ordinarily will not upset your stomach . Avoid gas producing foods for the next few days ?? Be gentle with what you choose to start with ?? Drink plenty of fluids ( unless your doctor has told you not to). IV SITE-- slight redness, or tenderness is normal. You can use warm compresses if you become concerned. If the tenderness +/or redness increases or foul drainage and a red streak occurs, please contact your PCP immediately When shoud you call for help? Call 911 anytime you think you may need emergency care. For example If you pass out ( loss of consciousness) If you pass maroon or bloody stools If you have severe belly pain Call your doctor now or seek immediate medical care If your stools are black and tarlike If your stools have streaks of blood, but you did not have a biopsy or any polyps removed If you have belly pain, or your belly is swollen and firm If you vomit If you have a fever If you are very dizzy Watch closely for changes in your health, and be sure to contact your doctor if you have any problems Your doctor will let you know when you will need your next colonoscopy. The results of your test andyour risk for colorectal cancer will help your doctor decide how often you need to be checked. [facility] [phone] 8a-5p Same Day Endo [phone] 7a-8p Otherwise contact [phone] and ask to speak to the wastewater manager correction officer Follow up care is a chowdhury part of your treatment and safety. Be sure to make and go to all appointments, and call your doctor if you are having problems. Discharge instructions reviewed with patient who expresses understanding documented in this encounter Medications at Time of Discharge Medication Sig Dispensed Refills Start Date End Date Calcium Carbonate-Vitamin D3 Take by mouth 0 600 mg(1,500mg) -400 unit daily. Capsule atenolol (TENORMIN) 25 mg 0 03/07/2010 tablet sulfaSALAzine (AZULFIDINE) TAKE FOUR 720 tablet 3 5 04/13/2016 500 mg Tablet TABLETS BY MOUTH TWICE A DAY hydrochlorothiazide Take 12.5 mg by 0 01/18/2019 (MICROZIDE) 12.5 mg Capsule mouth daily. levothyroxine (SYNTHROID) 88 Take 150 mcg by 0 06/22/2018 mcg tablet mouth daily. CIS Free Text Med - Daily 0 03/07/2010 06/22/2018 Multivitamin documented as of this encounter H&P Notes Marily Cano MD - 06/27/2015 1:36 PM EDT Gastroenterology and Hepatology Pre-Procedure History and Physical Exam Procedure: Colonoscopy: Indication: UC surveillance Patient Active Problem List Diagnosis Code ??? UC (ulcerative colitis) 556.9 ??? HTN (hypertension) 401.9 ??? Hypothyroidism 244.9 ??? History of diverticulitis V12.70 EXAM: HEENT: Airway examined, oropharynx clear Mallampati [...] patient. Consent signed. documented in this encounter Miscellaneous Notes Op Note - Marily Cano MD - 06/27/2015 2:06 PM EDT [facility] Operative Note Patient Name: Tatyana Skelton : [id number] MR#: [id number] Case Date: 06/27/2015 Surgeon: Surgeon(s) and Role: * Marily Cano MD - Primary Preoperative diagnosis: 59 yo for UC surveillance-PT REQUESTS EARLY MARCH OR LATE MAY Postoperative diagnosis: * No post-op diagnosis entered * Procedure(s): COLONOSCOPY, DIAGNOSTIC COLONOSCOPY FLEXIBLE, WITH BX Please see the Provation procedure report in the Procedures tab in eDH. documented in this encounter Plan of Treatment Upcoming Encounters Date Type Specialty Care Team Description 10/15/2022 Office Visit Hematology and Oncology Aldo Gaming MD [facility] HEMATOLOGY/ONCOL [place] DEPT. [place], [place] [address] (Wo rk) documented as of this encounter Procedures Procedure Name Priority Date/Time Associated Diagnosis Comme nts SURGICAL PATHOLOGY Routine 06/27/2015 2:12 PM Res ults for this REPORT EDT procedure are i n the results section. SPECIMEN TO Routine 06/27/2015 2:12 PM Results f or this PATHOLOGY EDT procedure are i n the results section. SPECIMEN TO Routine 06/27/2015 2:12 PM Results f or this PATHOLOGY EDT procedure are i n the results section. SPECIMEN TO Routine 06/27/2015 2:12 PM Results f or this PATHOLOGY EDT procedure are i n the results section. SPECIMEN TO Routine 06/27/2015 2:12 PM Results f or this PATHOLOGY EDT procedure are i n the results section. COLONOSCOPY Routine 06/27/2015 1:36 PM Results f or this EDT procedure are i n the results section. COLONOSCOPY 06/27/2015 1:31 PM UC (ulcerative FLEXIBLE, WITH BX EDT colitis), without (WRVU 3.66) complications COLONOSCOPY, 06/27/2015 1:31 PM UC (ulcerative DIAGNOSTIC EDT colitis), without complications documented in this encounter Results Surgical Pathology Report (06/27/2015 2:12 PM EDT) Component Value Ref Test Analysis Performed At [facility] Method Time Signature Surgical CERNER Pathology ? [facility] Report ? Provider: ?? Marily CANO ?Pt. Name: ?? MARIANN Ennis, TATYANA Barker ? Acc #: ?[id number] ?Pt. MRN: ?[id number] ? Col Date: ?? 5 ? /Sex: ?1955,(60 years),Female ? Rec Date: ?? 06/27/2015 ? LOC: ?4T ? SURGICAL PATHOLOGY ? ---Pathologic Diagnosis--- ? A - Rectosigmoid, non-targeted biopsy: ? - Colonic mucosa, negative for diagnostic abnor mality. ? B - Transverse colon, non-targeted biopsy: ? - Colonic mucosa, negative for diagnostic abnor mality. ? C - Right colon, non-targeted biopsy: ? - Colonic mucosa with mild architectural disarray, negative for ? dysplasia. ? D - Descending colon, non-targeted biopsy: ? - Colonic mucosa with mild architectural disarray, negative for ? dysplasia. ? CR-0, CR-PX ? 06/28/15 ? ANW ? 06/28/15 Verified by: ? Liban Whaley MD ? Pathologist ? (Electronic Si gnature) ? The attending pathologist whose signature appears o n this report has ? reviewed all diagnostic slides and has edited the marlin ss and/or ? microscopic portion of the report in rendering the fi nal pathologic ? diagnosis. ? ---Gross Description--- ? A - Labeled/Fixative: Non-targeted biopsies rectosigm oid, formalin. ? Quantity/Size: ??Multiple, ranging from 0.1-0.4 cm. ? Tissue Description: Soft, pink tissues. ? Sections/Processing: (T2) ? B - Labeled/Fixative: Non-targete d biopsies transverse colon, formalin. ? Quantity/Size: Multiple, ranging from 0.2-0.5 cm. ? Tissue Description: Soft, wilkerson tissues. ? Sections/Processing: (T2) ? C - Labeled/Fixative: Non--targeted biopsies right co alonzo, formalin. ? Quantity/Size: Multiple, ranging from 0.3-0.7 cm. ? Tissue Description: Soft, pink tissues. ? Sections/Processing: (T2) ? [facility] ? Provider: ?? Marily CANO ?Pt. Name: ?? TATYANA WHITTEN ? Acc #: ?[id number] ?Pt. MRN: ?[id number] ? Col Date: ?? 5 ? /Sex: ?1955,(60 years),Female ? Rec Date: ?? 06/27/2015 ? LOC: ?4T ? SURGICAL PATHOLOGY ? D - Labeled/Fixative: Non-targete d biopsies descending colon, formalin. ? Quantity/Size: Multiple, ranging from 0.3-0.5 cm. ? Tissue Description: Soft, pink tissues. ? Sections/Processing: (T2) ??sns ? ---Clinical Information--- ? Specimen Submitted: ? A - Non - targeted biopsies - rectosigmoid ? B - Non - targeted biopsies - transverse colon ? C - Non - targeted biopsies - R colon ? D - Non - targeted biopsies - descending colon ? Clinical History: ? 60-year-old with history of UC for surveillance ? Clinical Diagnosis: ? Same Specimen (Source) Anatomical Collection Method Collection Time Re ceived Time Location / / Volume Laterality 06/27/2015 2:12 PM EDT L Pedro Luis Cano MD PATHOLOGY/CYTOLOGY ORDERABLE S Performing Organization Address City/State/[place] [address] CERNER MILLENNIUM Specimen to Pathology (surgical or derm) (06/27/2015 2:12 PM EDT) Specimen Anatomical Collection Method Collection Time Receive d Time (Source) Location / / Volume Laterality AP Specimen 06/27/2015 2:12 PM 5 2:12 EDT PM EDT Narrative CERNER MILLENNIUM - 06/27/2015 2:12 PM E DT Specimen requisition ordered. ??Separate Pathology report to follow L Pedro Luis Cano MD PATHOLOGY/CYTOLOGY ORDERABLE S Performing Organization Address City/[facility] [place] [address] CERNER MILLENNIUM Specimen to Pathology (surgical or derm) (06/27/2015 2:12 PM EDT) Specimen Anatomical Collection Method Collection Time Receive d Time (Source) Location / / Volume Laterality AP Specimen 06/27/2015 2:12 PM 5 2:12 EDT PM EDT Narrative CERNER MILLENNIUM - 06/27/2015 2:12 PM E DT Specimen requisition ordered. ??Separate Pathology report to follow L Pedro Luis Cano MD PATHOLOGY/CYTOLOGY ORDERABLE S Performing Organization Address City/State/[place] [address] CERNER MILLENNIUM Specimen to Pathology (surgical or derm) (06/27/2015 2:12 PM EDT) Specimen Anatomical Collection Method Collection Time Receive d Time (Source) Location / / Volume Laterality AP Specimen 06/27/2015 2:12 PM 5 2:12 EDT PM EDT Narrative CERNER MILLENNIUM - 06/27/2015 2:12 PM E DT Specimen requisition ordered. ??Separate Pathology report to follow L Pedro Luis Cano MD PATHOLOGY/CYTOLOGY ORDERABLE S Performing Organization Address [facility] Code Phon e Number [address] CERNER MILLENNIUM Specimen to Pathology (surgical or derm) (06/27/2015 2:12 PM EDT) Specimen Anatomical Collection Method Collection Time Receive d Time (Source) Location / / Volume Laterality AP Specimen 06/27/2015 2:12 PM 5 2:12 EDT PM EDT Narrative CERNER MILLENNIUM - 06/27/2015 2:12 PM E DT Specimen requisition ordered. ??Separate Pathology report to follow L Pedro Luis Cano MD PATHOLOGY/CYTOLOGY ORDERABLE S Performing Organization Address City/[facility]/[place] [address] CERNER MILLENNIUM COLONOSCOPY (06/27/2015 1:36 PM EDT) Component Value Ref Test Analysis Performed At [facility] Method Time Signature COLONOSCOPY [facility] Endoscopy Patient Name: Tatyana Skelton ? Procedure Date: 06/27/2015 1:36 PM ? Date of : 1955 ? Age: 60 ? Order #: [id number] ? Procedure: ? Colonoscopy Indications: ? High risk colon cancer surveillance : ? Ulcerative colitis Providers: ? LCaleb Cano MD, Noris Mckeon, ? RN, Sonny Prado, Senior Technical Writer Referring : ?Tatyana Grande MD Medicines: ? Midazolam 3 mg IV, Fentanyl 150 ? micrograms IV [...] Th e ? colonoscopy was performed wit hout ? difficulty. The patient manuel ated the ? procedure well. The quality o f the ? bowel preparation was good. S cope ? withdrawal time was 14 minute s. ? Findings: ? External hemorrhoids were found. The hemorrhoids were ? medium-sized. ? Multiple medium-mouthed diverticula were found in the ? sigmoid colon. The tips of fold within the segment of ? sigmoid with the most dense diverticulosis were ? slightly thickened and had patchy intraepithelial ? hemorrhage. ? Very mild inflammation characterized by mild erythema ? and pinpoint erosions was found in a continuous and ? circumferential pattern for a short segment in the ? mid sigmoid colon. ? Eight non-targeted biopsies were taken with a cold ? forceps from each of four segments of the colon (the ? right colon, transverse colon, descending colon and ? rectosigmoid colon) for dysplasia surveillance. These ? biopsy specimens were sent to Pathology. ? The terminal ileum appeared normal. ? Impression: ?- Very mildly active ulcerative ? colitis limited to a small se gment of ? the sigmoid colon. ? - External hemorrhoids. ? - Moderate diverticulosis in the ? sigmoid colon. ? - The examined portion of the ileum ? was normal. ? - Biopsies for surveillance f or ? dysplasia were taken from the right ? colon, transverse colon, desc ending ? colon and rectosigmoid colon. Recommendation: ?- Await pathology results. ? - Continue current medication s. ? L. Pedro Luis Cano MD 06/27/2015 2:13 PM Number of Addenda: 0 Note Initiated On: 06/27/2015 1:36 PM Specimen (Source) Anatomical Collection Method Collection Time Re ceived Time Location / / Volume Laterality 06/27/2015 1:36 PM EDT Tatyana Grande MD GENERAL SURGICAL ORDERABLES Performing Organization Address City/State/ZIP Code Phon e Number [facility] documented in this encounter Visit Diagnoses Not on filedocumented in this encounter Administered Medications Inactive Administered Medications - up to 3 most recent administrations Medication Order MAR Action Action Date Dose Rate Site lactated ringers infusion New Bag 06/27/2015 1:30 PM EDT 100 mL/hr 100 mL/hr 100 mL/hr, Intravenous, CONTINUOUS, Starting on Kacy 06/27/15 at 1330, Until Kacy 06/27/15 at 1452, Endoscopy (Day of Procedure) documented in this encounter Active and Recently Administered Medications Times are shown in EDT. Continuous Medication Order 06/25/2015 06/26/2015 06/27/2015 lactated ringers infusion (CANCELED) 1330 (New Bag - Provider: Cy Yarbrough RN) 100 mL/hr, at 100 mL/hr, Intravenous, CO NTINUOUS, Starting Kacy 06/27/15 at 1330, Until Kacy 06/27/15 at 1452, Endo (Day of Procedure) PRN Medication Order 06/25/2015 06/26/2015 06/27/2015 fentaNYL 50 mcg/mL multi-dose injection (CANCELED) 1338 (Given - Provider: Noris Mckeon RN)1340 (Given - Provider: Noris Mckeon RN)1341 (Given - Provider: Noris Mckeon RN) ONCE PRN, Starting Kacy 15 at 1338, Until Kacy 06/27/15 at 1452, Intra- Operative (Intra-Procedure), Routine midazolam (PF) (VERSED) 1 mg/mL multi-dose injection (CANCELED) 1339 (Given - Provider: Noris Mckeon, ANDREW)1340 (Given - Provider: Noris Mckeon, RN)1341 (Given - Provider: Noris Mckeon RN) ONCE PRN, Starting Kacy 715 at 1339, Until Kacy 15 at 1452, Intra- Operative (Intra-Procedure), Routine documented in this encounter Care Teams Bander And Cellophaner Helper Machine Relationship Specialty Start Date End Date Tatyana Grande MD PCP - General 09/17/14 06/07/[address] [place] [id number] documented as of this encounter
--- OUTSIDE RECORDS SUMMARY | 2022-09-09 09:40 | XMS_ITS | Encounter Summary ---
:1955 Author Organization [facility] [place] [address] Care Team Providers Name Role Phone Bang Heath MD Primary Care Provider Reason for Visit Reason Onset Date Comments Medication Refill 08/23/2019 Encounter Details Date Type Department Care Team Description 08/23/2019 Refill Endocrinology at [facility] Herbert Schulte, [place] [address] Social History Tobacco Use Types Packs/Day Years [...] Aldo Gaming MD [facility] HEMATOLOGY/ONCOL [place] DEPT. [place], [place] [address] (Wo rk) documented as of this encounter Visit Diagnoses Not on filedocumented in this encounter Care Teams Box Maker Paperboard Relationship Specialty Start Date End Date Bang Heath MD PCP - General General Internal Medicine 01/18/19 [address] [place] [address] documented as of this encounter
--- OUTSIDE RECORDS SUMMARY | 2022-09-09 09:40 | XMS_ITS | Encounter Summary ---
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 Ideas for Highs at dinner. - check two hour post lunch numbers. If high post lunch then increase lunch dose carb ratio from 1:12 to 1:15. If not high and then elevated at dinner. That means you need more long acting lantus. Try to just increase one unit as you waking numbers look close to target. CGM- Dexcom 6 is the one with alarms.We prescribed this today to your pharmacy and will wait for anyrequests. When you get the device message or call clinic for visit with Luana Gonzalez (telehealth) to help start the device. forming machine upkeep mechanic sharing capabilities and then let's look at the data together 2-4 weeks after starting for any changes needed. Follow-up visit schedule for 3 months with lab visit prior. Return sooner for visit with Luana as outlined above. documented in this encounter Progress Notes Nargis Hawley APRN - 04/04/2020 10:40 AM EDT Name: Tatyana Skelton : 1955 PCP: Bang Heath MD Date: 04/04/20 Reason for visit: Tatyana Skelton is a 65 y.o. year old female with Diabetes TYPE 1 DINESH referred for FOLLOW UP to the [facility] endocrine clinic for diabetes services. This visit was completed via telemedicine on the virtual terminal because of [facility] 's adjustmentof clinics during the COVID Pandemic. Patient verified Name and Date of . Patient reports she is in [facility] Patient consents to the visit being telemedicine. Last 5 minutes was on the phone because of connections issues. Patient was last seen in this clinic [address] Neumann. Manages with Lantus, humalog and metformin. Suggested CGM in past and was not interested with fear that she was so active she may have issues but discussed today. She has increased her long-acting insulin 4 units in the last year. Numbers are mostly in range but she reports some higher numbers at dinner 150-200 and it is unclear ifthis is lunch or her long acting. She is waking some days with numbers 160 but also has some right at 100. Hypothyroidism-[id number]. Taking as instructed One hour before. COVID-19 readiness: Prescriptions Reviewed: Yes Food and Low supplies at home: No issues noted. Last 3 Hemoglobin A1Cs Lab Results Component Value Date HA1C 5.3 08/22/2019 HA1C 5.6 01/18/2019 HA1C 5.9 (H) 06/22/2018 Diabetes Diagnosis Date: Sep 2017 Most recent Ref. Range 01/18/2019 09:48 C-Peptide Latest Ref Range: 0.8 - 5.2 ng/mL 0.6 (L) Medication Regimen for Diabetes Care: Lantus 18 units daily Humalog CR 1:15g plus correction 1:50 mg/dL above 150 Metformin 1000mg BID (500mg tabs). Injection sites: belly Type of needle for injection: pens Glucose Monitoring: Meter type: Meter Checking Am and before meals. 6-10 times daily High before dinner reported by patient Lows - occasional after high treatment or overbolus of insulin. Average - 160 last 7 days, 160 14 days, 166 90 days. Waking - bg 160 this am. Yesterday 164. 103 day prior. Lunch - 250 yesterday. Hypoglycemia No recent severe hypoglycemia. See above in blood sugars. Hyperglycemia No recent hospitalizations related to diabetes. Diet Following type of diet: none Carb counting: yes Last visit with senior office assistant: luana closer to home not Luana Cortes in our clinic Exercise Active hiking outdoors. History of Diabetes Related Complications and Prevention Eyes: Last Eye Exam:annually History of Diabetes Retinopathy: no Thyroid: Hypothyroidism Most recent dose is 175mcg- see HPI. Ref. Range 06/22/2018 12:21 01/18/2019 09:48 08/22/2019 10:03 TSH Latest Ref Range: 0.27 - 4.20 mcIU/mL 4.29 (H) 2.96 5.16 (H) Kidney function: Last urine microalbumin: Ref. Range 06/22/2018 13:10 08/22/2019 10:13 Alb/Cr Ratio, Random Latest Ref Range: 0 - 29 mcg/mg Cr 22 Not Calculated Ref. Range 08/22/2019 10:03 Creatinine Latest Ref Range: 0.70 - 1.20 mg/dL 0.72 eGFR Latest Ref Range: >=60 mL/min/1.73 m?? 89 eGFR Latest Ref Range: >=60 mL/min/1.73 m?? 103 On YENNY/ARB: yes Cardio: Patient heart attack in past: not asked Aspirin: unknown There were no vitals filed for this visit. Last cholesterol: Ref. Range 01/18/2019 09:48 LDL Chol Direct Latest Units: mg/dL 81 Cholesterol medication: yes Feet: History of Neuropathy: no Past Medical History: Diagnosis Date ??? History of diverticulitis 09/17/2014 ??? HTN (hypertension) ??? Hypothyroidism ??? UC (ulcerative colitis) 09/11/2013 Medications 04/03/20 1340 Medication Sig Taking? fluconazole (Diflucan) 150 mg Tablet 150 mg once a week. estradioL (ESTRACE) 0.01 % (0.1 mg/gram) Cream three times a week. nystatin (MYCOSTATIN) Cream humaLOG KwikPen 100 unit/mL Insulin Pen Inject 1-6 Units subcutaneously 3 times daily (before meals). ICD 10 Code: E10.9 BD Ultra-Fine Short Pen Needle 31 gauge x 5/16 Needle Inject 1 each subcutaneously 4 times daily. ICD 10 Code: E10.9 metFORMIN (Glucophage) 500 mg Tablet Take 2 tablets by mouth 2 times daily (with meals). LANTUS SOLOSTAR U-100 INSULIN pen Inject 18 Units subcutaneously every morning. atorvastatin (LIPITOR) 40 mg Tablet Take 1 tablet by mouth daily. levothyroxine (SYNTHROID) 175 mcg Tablet Take 1 tablet by mouth daily. LORazepam (ATIVAN) 0.5 mg Tablet UNIFINE PENTIPS 31 gauge x 3/16 Needle USE 1 PEN NEEDLE FOUR TIMES A DAY TO INJECT INSULIN sulfaSALAzine (AZULFIDINE) 500 mg Tablet Take 4 tablets by mouth 2 times daily. ONETOUCH VERIO Strip Check blood glucose 6 times daily and additionally as needed. ONE TOUCH DELICA 33 gauge Misc 1 each by Misc.(Non-Drug; Combo Route) route 6 times daily. glucagon, Human Recombinant, (GLUCAGON EMERGENCY KIT, HUMAN,) 1 mg Recon Soln Inject 1 mL into the muscle as needed (severe hypoglycemia with unconsciousness). losartan (COZAAR) 50 mg Tablet Take 25 mg by mouth daily. Chromium Picolinate 200 mcg Tablet Take 200 mcg by mouth daily. multivitamin (THERAGRAN) Tablet Take 1 tablet by mouth daily. Calcium Carbonate-Vitamin D3 600 mg(1,500mg) -400 unit Capsule Take by mouth daily. atenolol (TENORMIN) 25 mg tablet Allergies Allergen Reactions ??? Contrast [Iodine And Iodide Containing Products] Nausea And Vomiting and Other (See Comments) Neck swelling ??? Lisinopril Other (See Comments) Caused a dry cough No family history on file. Social History Social History Narrative x 35 years with 3 children. 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 Nonsmoker ETOH: once a week ROS: General: Weight no changes reported. HEENT: Vision as outlined above. Respiratory: Denies shortness of breath at rest. Cardiac: Denies recent chest pain. Gastrointestinal: Denies any issues with bowel movements. Urinary: No change in urinary symptoms. Extremities: Outlined in HPI. Endocrine: Outlined in HPI. Psych: No issues noted in visit. OBJECTIVE There were no vitals taken for this visit. PHYSICAL EXAM: General: Alert and cooperative on virtual call. Well-appearing on video. No results found for this or any previous visit (from the past 24 hour(s)). ASSESSMENT: 1. 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 Hypothyroidism, unspecified type This is a 65 yo female with type 1 diabetes, DINESH for a couple of years. She continues to be well controlled but has increased her insulin and also is discussing some higher numbers at dinner time today. Discussed ways for her to determine if she should be increasing her lantus or rapid acting by checking the 2 hour post lunch number. See plan below. Also spent most of the visit in review of CGM prosand cons and options. Even though we are holding on most labs for COVID prevention at this time and she is aware of risks, She is insisting she would like to get labs done and will do them locally. Shealready scheduled herself for tomorrow. She will get a LDL, TSH and A1C. That will help determine any adjustments in her thyroid medication for her hypothyroid now that she is taking the thyroid replacement spaced 1 hour from any medications or food. I am recommending this patient get a Dexcom CGM for personal use. Prescription was sent today to pharmacy to start the process. Patient is on Multiple Daily Injections: Diagnosis: Diabetes Mellitus Patient performs SMBG at least 4x per day Patient administers 3 or more insulin injections per day Patient frequently adjusts meal time insulin doses Patient needs a therapeutic CGM I plan to see this pt every 6 months following this initial prescription of the CGM to assess adherence to their CGM regimen and diabetes treatment plan. Return to clinic/telehealth visit with Luana Gonzalez RD if and when she gets the CGM and otherwise schedule for 3 month routine follow-up. PLAN: Medications: Lantus 18 units daily Humalog CR 1:15g plus correction 1:50 mg/dL above 150 Metformin 1000mg BID (500mg tabs). Ideas for Highs at dinner. - check two hour post lunch numbers. If high post lunch then increase lunch dose carb ratio from 1:12 to 1:15. If not high and then elevated at dinner. That means you need more long acting lantus. Try to just increase one unit as you waking numbers look close to target. CGM- Dexcom 6 is the one with alarms.We prescribed this today to your pharmacy and will wait for anyrequests. When you get the device message or call clinic for visit with Luana Gonzalez (telehealth) to help start the device. forming machine upkeep mechanic sharing capabilities and then let's look at the data together 2-4 weeks after starting for any changes needed. Follow-up visit schedule for 3 months with lab visit prior. Return sooner for visit with Luana as outlined above. This call started at 1045 and ended at 1125. 40 minutes of this 40 minute visit was spent counseling face to face with patient on diabetes education including but limited to information in history and plan. Nargis Hawley, NASRIN, [employer]EN'S [employer] BOYS' [employer]OTHING SALESPERSON-BC, CDE Section of Endocrinology documented in this encounter Plan of Treatment Upcoming Encounters Date Type Specialty Care Team Description 10/15/2022 Office Visit Hematology and Oncology Aldo Gaming MD [facility] [id number] (Wo rk) documented as of this encounter Visit Diagnoses Diagnosis DINESH (latent autoimmune diabetes in adul ts), managed as type 1 - Primary Type II or unspecified type diabetes nicci litus without mention of complication, not stated as uncontrolled Hypothyroidism, unspecified type documented in this encounter Care Teams Street Light Inspector Relationship Specialty Start Date End Date Bang Heath MD PCP - General General Internal Medicine 01/18/19 1 [address] [place] [address] documented as of this encounter
--- OUTSIDE RECORDS SUMMARY | 2022-09-09 09:40 | XMS_ITS | Encounter Summary ---
:1955 Author Organization [facility] [place] [address] Care Team Providers Name Role Phone Tatyana Grande MD Primary Care Provider Encounter Details Date Type Department Care Team Description 02/24/2016 Ancillary Procedure Radiology Library at Bang Heath MD [facility] [id number] [place] [address] (Wo rk) [phone] Social History Tobacco Use Types Packs/Day Years [...] and Oncology Aldo Gaming MD [facility]EMAT[facility] [place] [facility] [place], [place] [address] (Wo rk) documented as of this encounter Procedures Procedure Name Priority Date/Time Associated Diagnosis Comme nts FILM LIBRARY Routine 02/24/2016 12:00 AM Results for this STORAGE ONLY MAMMO EDT procedure are in the results section. documented in this encounter Results Film Library- Storage Only Mammo (02/24/2016 12:00 AM EDT) Specimen (Source) Anatomical Location Collection Method / Collectio n Time Received Time / Laterality Volume Narrative [facility] - 01/01/2021 4:02 PM EST This exam is auto-finalizing. It's purpo se is for storage only. Bang Heath MD IMG FILM LIBRARY ORDERABLES Performing Organization Address City/State/ZIP Code Phon e Number [place], [place] documented in this encounter Visit Diagnoses Not on filedocumented in this encounter Care Teams Reimbursement Analyst Relationship Specialty Start Date End Date Tatyana Grande MD PCP - General 09/17/14 06/07/17 [address] [place] [address] documented as of this encounter
--- OUTSIDE RECORDS SUMMARY | 2022-09-09 09:40 | XMS_ITS | Encounter Summary ---
:1955 Author Organization [facility] [place] [address] Care Team Providers Name Role Phone Shayne Lui MD Primary Care Provider [phone] Reason for Visit Reason Comments Diabetes Consultation (Routine) - Closed Specialty Diagnoses / Procedures Referred By Contact Refer red To Contact Endocrinology Diagnoses type 2 DM w/o complications w/long-term use of Insulin. Bang Heath MD [facility] [address] [address] [place], [place] [address] Referral ID Status Reason Start Date Expiration Date Visits V isits Requested Authorized [id number] Closed Consult, 03/29/2018 03/29/2019 1 1 [facility] Encounter Details Date Type Department Care Team Description 06/22/2018 Office Visit Endocrinology at 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 [place] [address] CENTER [phone] END[place]OLOG[place] [address] Social History Tobacco Use Types Packs/Day Years [...] Sign Reading Time Taken Comments Blood Pressure 123/82 06/22/2018 10:02 AM EDT Pulse 76 06/22/2018 10:02 AM EDT Temperature - - Respiratory Rate - - Oxygen Saturation - - Inhaled Oxygen Concentration - - Weight 64.4 kg (142 lb) 06/22/2018 10:02 AM EDT Height 167.6 cm (5' 6) 06/22/2018 10:02 AM EDT Body Mass Index 22.92 06/22/2018 10:02 AM EDT documented in this encounter Patient Instructions Patient InstructionsTatyana Callahan MD - 06/22/2018 10:00 AM EDT cut back Lantus to 12 units daily. Adjust Lantus dose +/- 1 unit to keep fasting BG between 80-120 documented in this encounter Progress Notes Tatyana Callahan MD - 06/22/2018 10:00 AM EDT Images from the original note were not included. ENDOCRINOLOGY NEW PATIENT CONSULTATION Reason for Consultation: Referred to Endocrinology by Bang Heath for further evaluation & mgmt of Diabetes Mellitus type 1.5 HISTORY OF PRESENT ILLNESS: Ms. Tatyana Skelton is a 63 y.o. year old lady with history significant for ulcerative colitis (dx 1984 during ), Ryan's hypothyroidism (longstanding dx ~15 years ago), and recently diagnosed diabetes mellitus, initially thought to be type 2, but called type 1.5 after she tested positive f or type 1 diabetes antibodies. Creatinine 0.73 GFR >60. She was just diagnosed with diabetes in Sep 2017, was started on metformin and glipizide - started taking them on 11/04/17. She was losing 1lb per week of weight, made an appointment with PCP to check out the weight loss, and a week before appt started having polyuria and polydipsia. She has not had any episode of DKA, to date. She has had 3 pregnancies in the past (3 children), no history of gestational diabetes. About 3 years ago, she weight more, maximum weight was 202 lb. She had been active evenat that time, but she started keeping close track of her calories and exercise, and lost 40 lbs, then gained back 20 lbs, and maintained a weight of 180 lbs for about 2 years, plateaued for a while but continued weight loss efforts, then lost 20 lbs again to 160 lbs about 2 years ago, maintained this weight until beginning of September 2017, was content with this weight. Beginning of September 2017, she started losing 1 lb per week without extra effort. Working with staff educator NE Marquez at [facility] - phone number [phone]. FH - negative for diabetes. Sister is prediabetic, obese. Date of Diagnosis: Sep 2017 Last HgbA1c: 8.5% (Oct 2017), 10.5% (Sep 2017) Current Diabetes Medication regimen: Lantus 13 units daily Metformin 1000mg BID FSBG regimen: At least 2-3x/day Fasting 53, 110., 70, 81, 106, 82, 103, 103, 110, 97, 91. 106 Pre-dinner 142, 186, 194, 77 -> 194 after snack. Bedtime (1-2 hours after dinner) - 195 (1hr), 148, 148, 268, 132, 218 (1hr), 300 (1hr), 206 (1 hr) Hypoglycemia: didn't feel BG of 58 this morning. Diet: tends towards grazing Physical Activity: Smoking: History of complications 1) Nephropathy - Um:cr , sCr 2) Neuropathy - 3) Retinopathy - Last ophtho evaluation 4) CV disease - LDL PAST MEDICAL HISTORY: Patient Active Problem List Diagnosis Date Noted ??? History of diverticulitis 09/17/2014 ??? UC (ulcerative colitis) 09/11/2013 ??? HTN (hypertension) ??? Hypothyroidism MEDICATIONS: Medications 7/25/18 1015 Medication Sig Taking? FREESTYLE LITE STRIPS 1 strip by Other route 3 times daily. Yes LANTUS SOLOSTAR U-100 INSULIN pen Inject 13 Units subcutaneously every morning. Yes FREESTYLE LANCETS 28 gauge Misc 1 each by Other route 3 times daily. Yes levothyroxine (SYNTHROID) 150 mcg Tablet Take 150 mcg by mouth daily. Yes losartan (COZAAR) 50 mg Tablet Take 25 mg by mouth daily. Yes metFORMIN (GLUCOPHAGE) 500 mg Tablet Take 1,000 mg by mouth 2 times daily. Yes BD ULTRA-FINE SHORT PEN NEEDLE 31 gauge x 5/16 Needle Inject 1 each subcutaneously 3 times daily. Yes Chromium Picolinate 200 mcg Tablet Take 200 mcg by mouth daily. Yes multivitamin (THERAGRAN) Tablet Take 1 tablet by mouth daily. Yes sulfaSALAzine (AZULFIDINE) 500 mg Tablet TAKE FOUR TABLETS BY MOUTH TWICE A DAY Yes Calcium Carbonate-Vitamin D3 600 mg(1,500mg) -400 unit Capsule Take by mouth daily. Yes atenolol (TENORMIN) 25 mg tablet Yes hydrochlorothiazide (MICROZIDE) 12.5 mg Capsule Take 12.5 mg by mouth daily. ALLERGIES: Allergies Allergen Reactions ??? Contrast [Iodine And Iodide Containing Products] Nausea And Vomiting and Other (See Comments) Neck swelling ??? Lisinopril Other (See Comments) Caused a dry cough SOCIAL HISTORY: History Smoking Status ??? Never Smoker Smokeless Tobacco ??? Never Used FAMILY HISTORY: No family history on file. REVIEW OF SYSTEMS: All 12 systems reviewed and negative except as noted per HPI. PHYSICAL EXAM: Vitals Office Visit from 06/22/2018 in Endocrinology at [facility] Weight 64.4 kg (142 lb) Height 167.6 cm (5' 6) BSA (Calculated - sq m) 1.73 sq meters BMI (Calculated) 22.92 Heart Rate 76 BP 123/82 Gen: NAD, AAOx3, speaking full sentences, calm very pleasant demeanor, lean athletic habitus Skin: warm and dry Eyes: PERRL, EOMI, anicteric sclerae without injection, no proptosis or lid lag ENT: moist oral mucosa Neck: no thyromegaly, no thyroid nodules, no lymphadenopathy Pulm: CTAB, no stridor Cardiac: reg s1s2, no m/r/g MSK: 5/5 strength in all muscle groups of the upper and lower extremities Neuro: 2+ biceps and patellar DTRs, no clonus, no delay of the relaxation phase, very mild tremor visible with paper on outstretched arms. Foot exam: normal sensation to monofilament, no wounds or sores, no onychomycosis ASSESSMENT/PLAN: 1. DM type 1 - she is positive for GAD65, islet cell ab, and zinc transporter ab, and is fairly insulin sensitive, responding to increments of 1 unit changes of Lantus dose, and only requiring a small Lantus dose - she is having frequent fasting hypoglycemia on just 13 units of Lantus. Therefore, I think she is a Type 1 diabetic (DINESH), without an insulin resistant component. It may be that she stillhas some endogenous pancreatic insulin secretion, which is why she has been able to do without meal-associated short-acting insulin. In fact when she tried to do meal-associated Humalog just 2 units with dinner, she was having frequent hypoglycemia and increased loose stools. Her grazing eating style does make it challenging to dose meal-associated insulin since she doesn't eat sufficient carbs at a given time to give herself any appreciable amount of insulin per a carb ratio. She has already learned to carb count however, and is extremely organized in tracking her FSBG, carbohydrate consumption, and insulin administration -- she received extensive diabetes education at [facility] with a staff educator there, and is continuing to follow with her. They have discussed CGM and/or insulin pump, and I think both are good thoughts, particularly CGM at this time, considering that she's already had at least one episode of hypoglycemia unawareness with a BG of 58. --cut back Lantus to 12 units daily. Adjust Lantus dose +/- 1 unit to keep fasting BG between 80-120 --will check c-peptide, glucose to assess current endogeneous insulin production --will check A1c today - if higher than 7% should add meal associated insulin. --recommend CGM due to recent episode of hypoglycemia unawareness and extremely active lifestyle predisposing to hypoglycemia --may consider insulin pump in the future. SHe is already good at carb counting. --she is already under the care of an excellent staff educator at [facility], Keisha Fine. Will send her a copy of today's visit note to establish communication. --follow-up in 7 months, labs 1 hour prior to appt 2. Ongoing weight loss - will recheck TSH today to see if perhaps she is overreplace with levothyroxine, or if she's developed hyperthyroidism from an autoimmune cause. - will check cosyntropic stim test to see if she may have a subclinical adrenal insufficiency 3. Hypothyroidism - will check TSH today to assess LT4 dose adequacy. 40 min of this 80 min face to face visit was spent in counseling the patient on DM mgmt. TATYANA CALLAHAN MD Supervisor [employer] Section of Endocrinology [facility] [place] Niesha Boyle LPN - 06/22/2018 10:00 AM EDT Cosyntropin 0.25 mg administered IM in right deltoid per order. Site negative before, and after injection. Patient is aware to report to lab in approx 1 hr for level draw. documented in this encounter Plan of Treatment Upcoming Encounters Date Type Specialty Care Team Description 10/15/2022 Office Visit Hematology and Oncology Aldo Gaming MD [facility] HEMATOLOGY/[facility] DEPT. [place], [place] [address] (Wo rk) documented as of this encounter Procedures Procedure Name Priority Date/Time Associated Diagnosis Comme nts U ALBUMIN/CRE RATIO Routine 06/22/2018 1:10 PM Diabetes mellit us type Results for this EDT 1, uncomplicated procedure a re in the results section. C-PEPTIDE Routine 06/22/2018 12:21 Diabetes mellitus type R esults for this PM EDT 1, uncomplicated procedure a re in the results section. TSH Routine 06/22/2018 12:21 Hypothyroidism due to Re sults for this PM EDT Ryan's procedure are i n thyroiditis the results section. HEMOGLOBIN A1C Routine 06/22/2018 12:21 Diabetes mellitus type Results for this PM EDT 1, uncomplicated procedure a re in the results section. GLUCOSE, RANDOM Routine 06/22/2018 12:21 Diabetes mellitus typ e Results for this PM EDT 1, uncomplicated procedure a re in the results section. CORTISOL Routine 06/22/2018 12:21 Weight loss Results for this PM EDT procedure are i n the results section. documented in this encounter Results LDL Cholesterol, Direct (01/18/2019 9:48 AM EST) athologist Signature LDL Chol 81 mg/dL [facility] LABORATORY Comment: Lowest Risk: <100 mg/dL Lower Risk: 100-129 mg/dL Borderline High Risk: 130-159 mg/dL High Risk: 160-189 mg/dL Very High Risk: >ar=691 mg/dL Specimen Anatomical Collection Method Collection Time Receive d Time (Source) Location / / Volume Laterality Blood specimen 01/18/2019 9:48 AM 019 9:55 (specimen) EST AM EST Resulting Agency Comment Spec In Lab Tatyana Callahan MD CHEMISTRY ORDERABLES Performing Organization Address City/[facility]/ZIP Code Phon e Number [address] Glucose, random (01/18/2019 9:48 AM EST) athologist Signature Glucose Lvl 138 65 - 199 KARIE MORILLOCORTES mg/dL [facility] LABOR[facility]ORY Comment: Diabetes: >=200 mg/dL plus symp toms Specimen Anatomical Collection Method Collection Time Receive d Time (Source) Location / / Volume Laterality Blood specimen 01/18/2019 9:48 AM 019 9:55 (specimen) EST AM EST Resulting Agency Comment Spec In Lab Tatyana Callahan MD CHEMISTRY ORDERABLES Performing Organization Address City/State/[place] [address] (ABNORMAL) C-peptide (01/18/2019 9:48 AM EST) athologist Signature C-Peptide 0.6 (L) 0.8 - 5.2 KARIE LANDEROSCOCK ng/mL [facility]OR[facility]ORY Specimen Anatomical Collection Method Collection Time Receive d Time (Source) Location / / Volume Laterality Blood specimen 01/18/2019 9:48 AM 02/20/2 019 9:55 (specimen) EST AM EST Resulting Agency Comment Spec In Lab Tatyana Callahan MD CHEMISTRY ORDERABLES Performing Organization Address City/[facility]/ZIP Code Phon e Number [address] (ABNORMAL) Creatinine (01/18/2019 9:48 AM EST) Analysis Performed At Patho logist Time Signature Creatinine 0.64 (L) 0.70 - KARIE CORTES 1.20 mg/dL [facility] Estimated GFR 96 >=60 [facility] mL/min/1.7 [facility] 3 m?? [facility] LABORATORY Comment: The eGFR was calculated using the CKD-EP I equation. As with all creatinine based estimates of kidney function, eGFR values calculated with the CKD-EPI equation are not accurate in patients wi th acute kidney failure, extremes of body mass or the acutely ill. http://[facility] [place] eGFR 111 >=60 mL/min/1.73 m?? [facility] LABORATORY Comment: The eGFR was calculated using the CKD-EP I equation. As with all creatinine based estimates of kidney function, eGFR values calculated with the CKD-EPI equation are not accurate in patients wi th acute kidney failure, extremes of body mass or the acutely ill. http://[facility] [place] Specimen Anatomical Collection Method Collection Time Receive d Time (Source) Location / / Volume Laterality Blood specimen 01/18/2019 9:48 AM 019 9:55 (specimen) EST AM EST Resulting Agency Comment Spec In Lab Tatyana Callahan MD CHEMISTRY ORDERABLES Performing Organization Address City/State/ZIP Code Phon e Number [place], [place] [id number] [place] [address] TSH (01/18/2019 9:48 AM EST) P athologist Signature TSH 2.96 0.27 - 4.20 [facility]ML [facility] Specimen Anatomical Collection Method Collection Time Receive d Time (Source) Location / / Volume Laterality Blood specimen 01/18/2019 9:48 AM 019 9:55 (specimen) EST AM EST Resulting Agency Comment Spec In Lab Tatyana Callahan MD CHEMISTRY ORDERABLES Performing Organization Address City/State/[place] [address] Hemoglobin A1c (01/18/2019 9:48 AM EST) P athologist Signature Hemoglobin A1C 5.6 4.3 - 5.6 [facility] LABORATORY Comment: Reference Range: 4.3 [...] 36: Suppl. 1, S67-74 Est Avg Gluc 114 mg/dL [facility] LABORATORY Comment: eAG equivalents for HbA1c percentages: HbA1c(%) ?eAG(mg/dL) 6.0 ?126 6.5 ?140 7.0 ?154 7.5 ?169 8.0 ?183 8.5 ?197 9.0 ?212 9.5 ?226 10.0 ? 240 Limitations: The eAG calculation has not been validated on women, individuals below 18 years old and above 70 years old, and individuals with hemoglobinopathies. Additional resources are available on [facility] ADA website. David FONTANEZ, Ethan J, Luis Felipe R, et al. ??Tr anslating the A1C assay into estimated average glucose values. ??Diabetes Care 2008:31(8):1313-7805. Specimen Anatomical Collection Method Collection Time Receive d Time (Source) Location / / Volume Laterality Blood specimen 01/18/2019 9:48 AM 019 9:55 (specimen) EST AM EST Resulting Agency Comment Spec In Lab Tatyana Callahan MD CHEMISTRY ORDERABLES Performing Organization Address City/[facility]/[place] [address] U Albumin/Cre Ratio (06/22/2018 1:10 PM EDT) athologist Signature Alb/Cr Ratio, 22 0 - 29 [facility] Random mcg/mg Cr [facility] Comment: Reference Ranges: <30 mcg/mg: Normal [...] 2, 357? 362 U Albumin Conc, Random 22.8 mg/L [facility] LABORATORY U Creatinine 102 mg/dL [facility] LABOR[facility]ORY Specimen Anatomical Collection Method Collection Time Receive d Time (Source) Location / / Volume Laterality Urine specimen 06/22/2018 1:10 PM 018 1:26 (specimen) EDT PM EDT Resulting Agency Comment Spec In Lab Tatyana Callahan MD URINE ORDERABLES Performing Organization Address City/[facility]/ZIP Code Phon e Number [address] Cortisol (06/22/2018 12:21 PM EDT) athologist Signature Cortisol 28.6 mcg/dL [facility] LABORATORY Comment: Reference ranges: ??AM (6-10am): ??4.8-19.5 mcg/dL ??PM (4-8pm) : ??2.5-11.9 mcg/dL Specimen Anatomical Collection Method Collection Time Receive d Time (Source) Location / / Volume Laterality Blood specimen 06/22/2018 12:21 8 (specimen) PM EDT 12:35 PM EDT Resulting Agency Comment Spec In Lab Tatyana Callahan MD CHEMISTRY ORDERABLES Performing Organization Address City/State/ZIP Code Phon e Number [address] Glucose, random (06/22/2018 12:21 PM EDT) athologist Signature Glucose Lvl 99 65 - 199 [facility] mg[facility]dL [facility] Comment: Diabetes: >=200 mg/dL plus symp toms Specimen Anatomical Collection Method Collection Time Receive d Time (Source) Location / / Volume Laterality Blood specimen 06/22/2018 12:21 8 (specimen) PM EDT 12:35 PM EDT Resulting Agency Comment Spec In Lab Tatyana Callahan MD CHEMISTRY ORDERABLES Performing Organization Address City/State/ZIP Code Phon e Number [address] (ABNORMAL) TSH (06/22/2018 12:21 PM EDT) athologist Signature TSH 4.29 (H) 0.27 - 4.20 [facility] ml[facility]/ML [facility] Specimen Anatomical Collection Method Collection Time Receive d Time (Source) Location / / Volume Laterality Blood specimen 06/22/2018 12:21 8 (specimen) PM EDT 12:35 PM EDT Resulting Agency Comment Spec In Lab Tatyana Callahan MD CHEMISTRY ORDERABLES Performing Organization Address City/[facility]/ZIP Code Phon e Number [address] (ABNORMAL) C-peptide (06/22/2018 12:21 PM EDT) athologist Signature C-Peptide 0.7 (L) 0.8 - 5.2 [facility] ng/mL [facility] Specimen Anatomical Collection Method Collection Time Receive d Time (Source) Location / / Volume Laterality Blood specimen 06/22/2018 12:21 8 (specimen) PM EDT 12:35 PM EDT Resulting Agency Comment Spec In Lab Tatyana Callahan MD CHEMISTRY ORDERABLES Performing Organization Address City/State/[place] [address] (ABNORMAL) Hemoglobin A1c (06/22/2018 12:21 PM EDT) Analysis Performed At Patho logist Time Signature Hemoglobin A1C 5.9 (H) 4.3 - 5.6 [facility] LABORATORY Comment: Reference Range: 4.3 - 5.6% 5.7 - 6.4% - Increased Risk of Developin g Diabetes Mellitus >=6.5% - Consistent with diagnosis of Di abetes Mellitus In the absence of hyperglycemia (i.e. pl asma glucose > 200 mg/dL) or classic symptoms of hyperglycemia a repeat measu rement of HbA1c should be performed on a separate sample to confirm the diagnos is. Diagnosis and Classification of Diabetes Mellitus, Diabetes Care 2013; 36: Suppl. 1, S67-74 Est Avg Gluc 123 mg/dL [facility] Comment: eAG equivalents for HbA1c percentages: HbA1c(%) ?eAG(mg/dL) 6.0 ?126 6.5 ?140 7.0 ?154 7.5 ?169 8.0 ?183 8.5 ?197 9.0 ?212 9.5 ?226 10.0 ? 240 Limitations: The eAG calculation has not been validated on women, individuals below 18 years old and above 70 years old, and individuals with hemoglobinopathies. Additional resources are available on [facility] ADA website. David FONTANEZ, Ethan J, Luis Felipe R, et al. ??Tr anslating the A1C assay into estimated average glucose values. ??Diabetes Care 2008:31(8):0161-2477. 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 ditis Weight loss Loss of weight documented in this encounter Administered Medications Inactive Administered Medications - up to 3 most recent administrations Medication Order MAR Action Action Date Dose Rate Site cosyntropin (CORTROSYN) Given 06/22/2018 11:25 AM 0.25 mg Right Deltoid injection 0.25 mg EDT 0.25 mg, Intramuscular, ONCE, 1 dose, On Wed06/22/18 at 1115, Routine documented in this encounter Care Teams Viscosity Tester Relationship Specialty Start Date End Date Shayne Lui MD PCP - General Family Medicine 06/08/17 01/17/[address] [place] [address] [address] [place] [address] documented as of this encounter
--- OUTSIDE RECORDS SUMMARY | 2022-09-09 09:40 | XMS_ITS | Encounter Summary ---
:1955 [place] [address] Care Team Providers Name Role Phone Bang Heath MD Primary Care Provider Encounter Details Date Type Department Care Team Description 08/22/2019 Laboratory Appointment Lab 3L Karie Type 1 diabetes mellitus with hypoglycemia and without coma; [facility] Hypothyro idism, [place] [address] Social History Tobacco Use Types [...] MD [facility] HEMATOLOGY/[facility] DEPT. [place], [place] [address] (Wo rk) documented as of this encounter Procedures Procedure Name Priority Date/Time Associated Diagnosis Comme nts HC MICROALBUMIN, STAT 08/22/2019 10:13 Type 1 diabetes Resu lts for this URINE AM EDT mellitus with procedure are in hypoglycemia and the results without coma section. HC VENIPUNCTURE STAT 08/22/2019 10:03 Type 1 diabetes Resul ts for this AM EDT mellitus with procedure are in hypoglycemia and the results without coma section. HC THYROID STAT 08/22/2019 10:03 Hypothyroidism, Results for this STIMULATING HORMONE, AM EDT unspecified type pro cedure are in SERUM the results section. HC HEMOGLOBIN A1C STAT 08/22/2019 10:03 Type 1 diabetes Res ults for this AM EDT mellitus with procedure are in hypoglycemia and the results without coma section. documented in this encounter Results U Albumin/Cre Ratio (08/22/2019 10:13 AM EDT) [facility] Method Time Signature Alb/Cr Ratio, Not Calculated 0 - 29 [facility] Random mcg/mg Cr [facility] Comment: Reference Ranges: <30 mcg/mg: Normal [...] 2, 357? 362 U Albumin Conc, Random <3.0 mg/L [facility] U Creatinine 33 mg/dL [facility] Specimen Anatomical Collection Method Collection Time Receive d Time (Source) Location / / Volume Laterality Urine specimen 08/22/2019 10:13 9 (specimen) AM EDT 10:25 AM EDT Resulting Agency Comment Spec In Lab Tatyana Callahan MD URINE ORDERABLES Performing Organization Address City/State/[place] [address] Hemoglobin A1c (08/22/2019 10:03 AM EDT) athologist Signature Hemoglobin A1C 5.3 4.3 - 5.6 [facility] Comment: Reference Range: 4.3 - [...] 36: Suppl. 1, S67-74 Est Avg Gluc 106 mg/dL [facility] Comment: eAG equivalents for HbA1c percentages: HbA1c(%) ?eAG(mg/dL) 6.0 ?126 6.5 ?140 7.0 ?154 7.5 ?169 8.0 ?183 8.5 ?197 9.0 ?212 9.5 ?226 10.0 ? 240 Limitations: The eAG calculation has not been validated on women, individuals below 18 years old and above 70 years old, and individuals with hemoglobinopathies. Additional resources are available on [facility] ADA website. David FONTANEZ, Ethan J, Luis Felipe R, et al. ??Tr anslating the A1C assay into estimated average glucose values. ??Diabetes Care 2008:31(8):9188-4156. Specimen Anatomical Collection Method Collection Time Receive d Time (Source) Location / / Volume Laterality Blood specimen 08/22/2019 10:03 9 (specimen) AM EDT 10:13 AM EDT Resulting Agency Comment Spec In Lab Tatyana Callahan MD CHEMISTRY ORDERABLES Performing Organization Address City/State/ZIP Code Phon e Number [address] (ABNORMAL) TSH (08/22/2019 10:03 AM EDT) P athologist Signature TSH 5.16 (H) 0.27 - 4.20 [facility] [place] mcIU/mL [facility] Specimen Anatomical Collection Method Collection Time Receive d Time (Source) Location / / Volume Laterality Blood specimen 08/22/2019 10:03 9 (specimen) AM EDT 10:13 AM EDT Resulting Agency Comment Spec In Lab Tatyana Callahan MD CHEMISTRY ORDERABLES Performing Organization Address City/[facility]/[place] [address] Creatinine (08/22/2019 10:03 AM EDT) P athologist Signature Creatinine 0.72 0.70 - KARIE ANDRADECK 1.20 mg/dL [facility] Estimated GFR 89 >=60 [facility] mL/min/1.7 [facility] 3 ? [facility] Comment: The eGFR was calculated using the CKD-EP I equation. As with all creatinine based estimates of kidney function, eGFR values calculated with the CKD-EPI equation are not accurate in patients wi th acute kidney failure, extremes of body mass or the acutely ill. http://GRID/[facility] TULSAnkf eGFR 103 >=60 mL/min/1.73 m?? [facility] Comment: The eGFR was calculated using the CKD-EP I equation. As with all creatinine based estimates of kidney function, eGFR values calculated with the CKD-EPI equation are not accurate in patients wi th acute kidney failure, extremes of body mass or the acutely ill. http://GRID/[facility] TULSAnkf Specimen Anatomical Collection Method Collection Time Receive d Time (Source) Location / / Volume Laterality Blood specimen 08/22/2019 10:03 201 9 (specimen) AM EDT 10:13 AM EDT Resulting Agency Comment Spec In Lab Tatyana Callahan MD CHEMISTRY ORDERABLES Performing Organization Address City/State/[place] [address] documented in this encounter Visit Diagnoses Diagnosis Type 1 diabetes mellitus with hypoglycem ia and without coma Type I (juvenile type) diabetes mellitus with other specified manifestations, not stated as uncontrolled Hypothyroidism, unspecified type documented in this encounter Care Teams Shipping Track Supervisor Relationship Specialty Start Date End Date Bang Heath MD PCP - General General Internal Medicine 01/18/19 [address] [place] [address] documented as of this encounter
--- OUTSIDE RECORDS SUMMARY | 2022-09-09 09:40 | XMS_ITS | Encounter Summary ---
:1955 Author Organization [facility] [place] [address] Care Team Providers Name Role Phone Bang Heath MD Primary Care Provider Encounter Details Date Type Department Care Team Description 04/25/2019 Telephone Gastroenterology at [facility] [place] [address] Social History Tobacco Use Types Packs/Day [...] this encounter Miscellaneous Notes Telephone Encounter - Jessica Rodriguez - 04/25/2019 4:07 PM EDT Left message for patient who is scheduled for a colonoscopy with Dr. Guillermo on 06/22. He will not be available that day, we need to reschedule her appointment. documented in this encounter Plan of Treatment Upcoming Encounters Date Type Specialty Care Team Description 10/15/2022 Office Visit Hematology and Oncology Aldo Gaming MD [facility] [place] [address] (Wo rk) documented as of this encounter Visit Diagnoses Not on filedocumented in this encounter Care Teams Oxyacetylene Welder Relationship Specialty Start Date End Date Bang Heath MD PCP - General General Internal Medicine 01/18/19 [address] [place] [address] documented as of this encounter
--- OUTSIDE RECORDS SUMMARY | 2022-09-09 09:40 | XMS_ITS | Encounter Summary ---
:1955 Author Organization [facility] [place] [address] Care Team Providers Name Role Phone Bang Heath MD Primary Care Provider Reason for Visit Reason Onset Date Comments Medication Refill 02/09/2019 Encounter Details Date Type Department Care Team Description 02/09/2019 Refill Endocrinology at [facility] Tatyana Lea, Type 1 diabetes [facility] Rubin [place]azquez [place] [address] [facility] complication [phone] ENDOCRINOLOGY DE PT [place], [place] [address] (Wo rk) Social History Tobacco [...] this encounter Miscellaneous Notes Telephone En[facility] - [facility]11/2019 10:22 AM EDT ELISEO: 01/18/19 ?? FOV: N/A Continue metformin for now documented in this encounter Plan of Treatment Upcoming Encounters Date Type Specialty Care Team Description 10/15/2022 Office Visit Hematology and Oncology Aldo Gaming MD [facility] HEMATOLOGY/[facility] DEPT. [place], [place] [address] (Wo rk) documented as of this encounter Visit Diagnoses Diagnosis Type 1 diabetes mellitus without complic ation Type I (juvenile type) diabetes mellitus without mention of complication, not stated as uncontrolled documented in this encounter Care Teams Railroad Police Relationship Specialty Start Date End Date aBng Heath MD PCP - General General Internal Medicine 01/18/19 [address] [place] [address] documented as of this encounter
--- OUTSIDE RECORDS SUMMARY | 2022-09-09 09:40 | XMS_ITS | Encounter Summary ---
:1955 Author Organization [facility] [place] [place] [address] Care Team Providers Name Role Phone Bang Heath MD Primary Care Provider Reason for Visit Reason Onset Date Comments Medication Refill 02/16/2020 Encounter Details Date Type Department Care Team Description 02/16/2020 Refill Endocrinology at [facility] Fabio Hernandez MD [facility] [place] [address] ENDOCRINOLOGY DEPT [phone] [place], [place] [address] (Wo rk) Social History Tobacco [...] Oncology Aldo Gaming MD [facility] HEMATOLOGY/[facility] DEPT. [place], [place] [address] (Wo rk) documented as of this encounter Visit Diagnoses Not on filedocumented in this encounter Care Teams Jackspooler Relationship Specialty Start Date End Date Bang Heath MD PCP - General General Internal Medicine 01/18/19 [address] [place] [address] documented as of this encounter
--- OUTSIDE RECORDS SUMMARY | 2022-09-09 09:40 | XMS_ITS | Encounter Summary ---
:1955 Author Organization [facility] [place] [address] Care Team Providers Name Role Phone Bang Heath MD Primary Care Provider Encounter Details Date Type Department Care Team Description 01/18/2019 Laboratory Lab 3L Karie Diabetes mellit us type 1, uncomplicated; Appointment [facility] Hypothyro idism due [place] [address] Social History Tobacco Use Types [...] Visit Hematology and Oncology Aldo Gaming MD [facility] HEMATOLOGY/[facility] DEPT. [place], [place] [address] (Wo rk) documented as of this encounter Procedures Procedure Name Priority Date/Time Associated Diagnosis Comme nts CREATININE STAT 01/18/2019 9:48 AM Diabetes mellitus type Results for this EST 1, uncomplicated procedure a re in the results section. C-PEPTIDE STAT 01/18/2019 9:48 AM Diabetes mellitus type Results for this EST 1, uncomplicated procedure a re in the results section. TSH STAT 01/18/2019 9:48 AM Hypothyroidism due to Results for this EST Ryan's procedure are i n thyroiditis the results section. LDL CHOLESTEROL, STAT 01/18/2019 9:48 AM Diabetes mellitus type Results for this DIRECT EST 1, uncomplicated procedure a re in the results section. HEMOGLOBIN A1C STAT 01/18/2019 9:48 AM Diabetes mellitus ty pe Results for this EST 1, uncomplicated procedure a re in the results section. GLUCOSE, RANDOM STAT 01/18/2019 9:48 AM Diabetes mellitus t ype Results for this EST 1, uncomplicated procedure a re in the results section. documented in this encounter Results Hemoglobin A1c (01/18/2019 9:48 AM EST) athologist Signature Hemoglobin A1C 5.6 4.3 - 5.6 [facility] Comment: Reference Range: 4.3 - [...] Mellitus, Diabetes Care 2013; 36: Suppl. 1, I07-25 Est Avg Gluc 114 mg/dL [facility] Comment: eAG equivalents for HbA1c percentages: HbA1c(%) ?eAG(mg/dL) 6.0 ?126 6.5 ?140 7.0 ?154 7.5 ?169 8.0 ?183 8.5 ?197 9.0 ?212 9.5 ?226 10.0 ? 240 Limitations: The eAG calculation has not been validated on women, individuals below 18 years old and above 70 years old, and individuals with hemoglobinopathies. Additional resources are available on [facility] ADA website. David FONTANEZ, Ethan J, Luis Felipe R, et al. ??Tr anslating the A1C assay into estimated average glucose values. ??Diabetes Care 2008:31(8):1528-8832. Specimen Anatomical Collection Method Collection Time Receive d Time (Source) Location / / Volume Laterality Blood specimen 01/18/2019 9:48 AM 019 9:55 (specimen) EST AM EST Resulting Agency Comment Spec In Lab Tatyana Callahan MD CHEMISTRY ORDERABLES Performing Organization Address City/State/[place] [address] TSH (01/18/2019 9:48 AM EST) P athologist Signature TSH 2.96 0.27 - 4.20 KARIE KOLB mlU/ML [facility] Specimen Anatomical Collection Method Collection Time Receive d Time (Source) Location / / Volume Laterality Blood specimen 01/18/2019 9:48 AM 019 9:55 (specimen) EST AM EST Resulting Agency Comment Spec In Lab Tatyana Callahan MD CHEMISTRY ORDERABLES Performing Organization Address City/[facility]/[place] [address] (ABNORMAL) Creatinine (01/18/2019 9:48 AM EST) Analysis Performed At Patho logist Time Signature Creatinine 0.64 (L) 0.70 - KARIE CORTES 1.20 mg/dL [facility] Estimated GFR 96 >=60 KARIE [place] mL/min/1.7 [facility] 3 m?? HOSPITAL LABORATORY Comment: The eGFR was calculated using the CKD-EP I equation. As with all creatinine based estimates of kidney function, eGFR values calculated with the CKD-EPI equation are not accurate in patients wi th acute kidney failure, extremes of body mass or the acutely ill. http://[employer]/[facility]ONERnkf eGFR 111 >=60 mL/min/1.73 m?? [facility] Comment: The eGFR was calculated using the CKD-EP I equation. As with all creatinine based estimates of kidney function, eGFR values calculated with the CKD-EPI equation are not accurate in patients wi th acute kidney failure, extremes of body mass or the acutely ill. http://[employer]/[facility]ON[facility]nkf Specimen Anatomical Collection Method Collection Time Receive d Time (Source) Location / / Volume Laterality Blood specimen 01/18/2019 9:48 AM 019 9:55 (specimen) EST AM EST Resulting Agency Comment Spec In Lab Tatyana Callahan MD CHEMISTRY ORDERABLES Performing Organization Address City/State/ZIP Code Phon e Number [address] (ABNORMAL) C-peptide (01/18/2019 9:48 AM EST) P athologist Signature C-Peptide 0.6 (L) 0.8 - 5.2 [facility] ng/mL [facility] Specimen Anatomical Collection Method Collection Time Receive d Time (Source) Location / / Volume Laterality Blood specimen 01/18/2019 9:48 AM 019 9:55 (specimen) EST AM EST Resulting Agency Comment Spec In Lab Tatyana Callahan MD CHEMISTRY ORDERABLES Performing Organization Address City/State/ZIP Code Phon e Number [address] Glucose, random (01/18/2019 9:48 AM EST) P athologist Signature Glucose Lvl 138 65 - 199 [facility] mg[facility]dL [facility] Comment: Diabetes: >=200 mg/dL plus symp toms Specimen Anatomical Collection Method Collection Time Receive d Time (Source) Location / / Volume Laterality Blood specimen 01/18/2019 9:48 AM 019 9:55 (specimen) EST AM EST Resulting Agency Comment Spec In Lab Tatyana Callahan MD CHEMISTRY ORDERABLES Performing Organization Address City/[facility]/[place] [address] LDL Cholesterol, Direct (01/18/2019 9:48 AM EST) P athologist Signature LDL Chol 81 mg/dL [facility] LABORATORY Comment: Lowest Risk: <100 mg/dL Lower Risk: 100-129 mg/dL Borderline High Risk: 130-159 mg/dL High Risk: 160-189 mg/dL Very High Risk: >an=971 mg/dL Specimen Anatomical Collection Method Collection Time Receive d Time (Source) Location / / Volume Laterality Blood specimen 01/18/2019 9:48 AM 019 9:55 (specimen) EST AM EST Resulting Agency Comment Spec In Lab Tatyana Callahan MD CHEMISTRY ORDERABLES Performing Organization Address City/[facility]/[place] [address] documented in this encounter Visit Diagnoses Diagnosis Diabetes mellitus type 1, uncomplicated Type I (juvenile type) diabetes mellitus without mention of complication, not stated as uncontrolled 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
--- OUTSIDE RECORDS SUMMARY | 2022-09-09 09:40 | XMS_ITS | Encounter Summary ---
:1955 Author Organization [facility] [place] [address] Care Team Providers Name Role Phone Shayne Lui MD Primary Care Provider [phone] Reason for Visit Reason Comments Follow-up Encounter Details Date Type Department Care Team Description 10/15/2017 Office Visit Gastroenterology at [facility] Marily Guillermo Left sided [facility] [place] [address] [facility] with complication [phone] [place] [address] Social History Tobacco Use Types Packs/Day Years [...] Sign Reading Time Taken Comments Blood Pressure 147/74 10/15/2017 10:21 AM EST Pulse 66 10/15/2017 10:21 AM EST Temperature - - Respiratory Rate - - Oxygen Saturation - - Inhaled Oxygen Concentration - - Weight 74.4 kg (164 lb) 10/15/2017 10:21 AM EST Height 167.6 cm (5' 6) 10/15/2017 10:21 AM EST Body Mass Index 26.47 10/15/2017 10:21 AM EST documented in this encounter Progress Notes Marily Guillermo MD - 10/15/2017 10:00 AM EST Patient Active Problem List Diagnosis ??? History of diverticulitis ??? UC (ulcerative [...] daily 08/2013. ??? HTN (hypertension) ??? Hypothyroidism INTERVAL HISTORY: Ms. Vaughan follows up today for a history of UC. I last saw her in the office last year. Her last colonoscopy was in 05/2015. She had been feeling well until two weeks ago. Since then, she has lost 14 pounds unintentionally. Eating well. Appetite good and otherwise feels excellent. Able to hike and exercise. No night sweats or fevers. Only very mild nausea that she gets when hungry. No vomiting. Stool is formed but not hard. There is mild amount of straining. One bowel movement in the morning. There has been no blood. Continue on SSZ at 2 g bid. No incontinence, no urgency. Just was seen in Dr. Lui's office. Labs and urine collected yesterday. REVIEW OF SYSTEMS Notable for the gastrointestinal symptoms as described above. There has been no anorexia, fever, or unintended weight change; no red or painful eyes; no oral ulcers, chronic oral lesions, or chronic sore throat. There is no cough, shortness of breath, palpitations, or chest pain. There is no dysuria, urinary incontinence. No chronic joint pains or history of inflammatory arthritis. There is no recentskin rash. The patient denies psychiatric problems. There are no neurologic symptoms or easy bruising or bleeding. PHYSICAL EXAMINATION: Most Recent Vitals: 10/15/17 1021 BP: 147/74 Pulse: 66 Wt Readings from Last 3 Encounters: 10/15/17 74.4 kg (164 lb) 10/05/16 79.4 kg (175 lb) 10/14/15 84.4 kg (186 lb) Body mass index is 26.47 kg/(m^2). GEN: Healthy-appearing in no acute distress. Appears stated age. Cooperative and answers questions appropriately. SKIN: No rashes or abnormal lesions. NECK: No adenopathy and no thyromegaly. HEENT: PERRL, EOMI, POTATO PEELER and OP clear without ulceration or lesions. LUNGS: Clear to auscultation bilaterally. COR: Regular, normal S1 and S2 without murmurs ABD: Normal active bowel sounds. Soft and non-distended. No tenderness to deep palpation in all 4 quadrants. No hepatosplenomegaly. EXT: No cyanosis, clubbing or edema. IMPRESSION AND RECOMMENDATIONS: Ms. Skelton is doing well in symptomatic remission on sulfasalazine. However, she has experienced a significant weight loss over the last 2 weeks. While she reports some increased stress at work, she has been eating well. She overall feels quite well. We just did a colonoscopy for surveillance in May and there is only mild disease. This in conjunction with her lack of symptomatology makes me think ulcerative colitis is unlikely explanation for her weight loss. I recommended to her that she follow-upwith Dr. Lui's office to get the results of her lab tests. If these are unrevealing and if her weight loss persists, would make sense to me to pursue cross-sectional imaging of the chest, abdomen,and pelvis. Would also consider a transvaginal ultrasound to evaluate the ovaries. Also, at that point, would consider repeat colonoscopy and upper endoscopy. Otherwise, she will continue her sulfasalazine as she has. She should have annual tests including liver tests, creatinine, complete blood count, and C- reactive protein. I assume these were drawn yesterday, so we did not draw any labs today. She will next be due for surveillance colonoscopy in May 2019. We discussed the following recommendations that were printed out for the patient: # Continue sulfasalazine 2 g (4 tabs) twice per day. # Continue evaluation for wt loss with Dr. Lui's office. If lab work is unremarkable, would consider imaging with CT scan and potentially transvaginal ultrasound to evaluate ovaries. If weight loss persists without explanation on further studies, would consider repeat colonoscopy (just done in May) along with upper endoscopy. # Otherwise, as usual, recommend routine complete blood count, liver tests, kidney tests, urinalysisannually to evaluate for rare complications from IBD (PSC) and from mesalamine (interstitial nephritis, abnormal LFTs, myelosuppression). # Recommend repeat colonoscopy two years from the last for surveillance for dysplasia. Due May 2019. # Avoid non-steroidal anti-inflammatory medications (NSAIDs) including but not limited to Advil, ibuprofen, Motrin, Aleve, Excedrin, naproxen, Mobic, indomethacin, and aspirin. Acetaminophen (Tylenol) is okay for aches and pains. # Follow-up with me in the office in one year or please call if symptoms change and/or evaluation for weight loss is unrevealing with continued symptoms. Chele Guillermo MD Exhibition Specialistlabel pinker Section of Gastroenterology [place] [address] documented in this encounter Plan of Treatment Upcoming Encounters Date Type Specialty Care Team Description 10/15/2022 Office Visit Hematology and Oncology Aldo Gaming MD [facility] ER HEMATOLOGY/[facility] DEPT. [place], [place] [address] (Wo rk) documented as of this encounter Visit Diagnoses Diagnosis Left sided ulcerative colitis with compl ication documented in this encounter Care Teams Cattle Farmer Relationship Specialty Start Date End Date Shayne Lui MD PCP - General Family Medicine 06/08/17 01/17/[address] [facility] [place] [address] documented as of this encounter
--- OUTSIDE RECORDS SUMMARY | 2022-09-09 09:40 | XMS_ITS | Encounter Summary ---
:1955 Author Organization [facility] [place] [address] Care Team Providers Name Role Phone Tatyana Grande MD Primary Care Provider Encounter Details Date Type Department Care Team Description 06/27/2015 Surgery Gastroenterology at [facility] Marily Cano, COLONOSCOPY, [facility] Rub[place] [address] [facility] [phone] GASTROENTEROLOGY DEPT. [place], [place] [address] Social History Tobacco Use Types [...] documented in this encounter Discharge Instructions Discharge Brett Tracy RN - 06/27/2015 2:09 PM EDT Colonoscopy [...] you need to be checked. Wednesday-Wednesday Clinic [phone] 8a-5p Same Day Endo [phone] 7a-8p Otherwise contact [phone] and ask to speak to the student services vice president aboriginal liaison officer Follow up care is a chowdhury [...] Cano MD - 06/27/2015 2:06 PM EDT [facility] Operative Note Patient Name: Tatyana Skelton : [id number] MR#: [id number] Case Date: 06/27/2015 Surgeon: Surgeon(s) and Role: [...] [facility] DEPT. [place], [place] [address] (Wo rk) documented as of [...] Component Value Ref Test Analysis Performed At [facility] Method Time Signature Surgical CERNER Pathology ? [facility] [place] ? Provider: ?? Marily CANO ?Pt. Name: ?? MARIANN Ennis, TATYANA Barker ? Acc #: ?[id number] ?Pt. MRN: ?[id number] ? Col Date: ?? 5 ? /Sex: [...] Soft, pink tissues. ? Sections/Processing: (T2) ? [facility] ? Provider: ?? Marily CANO ?Pt. Name: ?? MARIANN Ennis, TATYANA Barker ? Acc #: ?[id number] ?Pt. MRN: ?[id number] ? Col Date: ?? 5 ? /Sex: [...] Organization Address City/State/[place] [address] CERNER MILLENNIUM Specimen to [...] ORDERABLE S Performing Organization Address City/[facility] [email or web address]] [place] [address] CERNER MILLENNIUM Specimen to [...] ORDERABLE S Performing Organization Address City/[facility]/ZIP Code Phon e Number [address] CERNER MILLENNIUM Specimen to [...] MD PATHOLOGY/CYTOLOGY ORDERABLE S Performing Organization Address [facility]/ZIP Code Phon e Number [address] CERNER MILLENNIUM Specimen to [...] ORDERABLE S Performing Organization Address City/[facility]/[place] [address] CERNER MILLENNIUM COLONOSCOPY (06/27/2015 1:36 PM EDT) Component Value Ref Test Analysis Performed At [facility] Range Method Time Signature COLONOSCOPY [facility] PROVATION Endoscopy Patient Name: Tatyana Skelton ? Procedure Date: 06/27/2015 1:36 PM ? Date of : 1955 ? Age: 60 ? Order #: [id number] ? Procedure: ? Colonoscopy Indications: ? High risk colon cancer surveillance : ? Ulcerative colitis Providers: ? LCaleb Cano MD, Noris Mckeon, ? RN, Sonny Prado, Street Department Dispatcher Referring : ?Tatyana Grande MD Medicines: ? [...] PROVATION documented in this encounter Visit Diagnoses Diagnosis UC (ulcerative colitis), without complic ations documented in this encounter Administered Medications Inactive Administered Medications - up to 3 most recent administrations Medication Order MAR Action Action Date Dose Rate Site fentaNYL 50 mcg/mL multi-dose Given 06/27/2015 1:41 PM EDT 50 mc g injection ONCE PRN, Starting on Kacy 06/27/15 at 1338, Until Kacy 06/27/15 at 1452, Intra-Operative (Intra-Procedure), Routine Given 06/27/2015 1:40 PM EDT 50 mcg Given 06/27/2015 1:38 PM EDT 50 mcg lactated ringers infusion New Bag 06/27/2015 1:30 PM EDT 100 mL/hr 100 mL/hr 100 mL/hr, Intravenous, CONTINUOUS, Starting on Kacy 06/27/15 at 1330, Until Kacy 06/27/15 at 1452, Endoscopy (Day of Procedure) midazolam (PF) (VERSED) 1 mg/mL multi-dose Given 06/27/2015 1:41 PM EDT 1 mg injection ONCE PRN, Starting on Kacy 06/27/15 at 1339, Until Kacy 06/27/15 at 1452, Intra-Operative (Intra-Procedure), Routine Given 06/27/2015 1:40 PM EDT 1 mg Given 06/27/2015 1:39 PM EDT 1 mg documented in this encounter [...] Noris Mckeon RN) ONCE PRN, Starting Kacy 06/27/15 at 1338, Until Kacy 06/27/15 at 1452, Intra- Operative (Intra-Procedure), Routine midazolam (PF) (VERSED) 1 mg/mL multi-dose injection (CANCELED) 1339 (Given - Provider: Noris Mckeon RN)1340 (Given - Provider: Noris Mckeon RN)1341 (Given - Provider: Noris Mckeon RN) ONCE PRN, Starting Kacy 06/27/15 at 1339, Until Kacy 06/27/15 at 1452, Intra- Operative (Intra-Procedure), Routine documented in this encounter Care Teams Account Liaison Hospice Relationship Specialty Start Date End Date Tatyana Grande MD PCP - General 09/17/14 06/07/17 [address] [place] [address] documented as of this encounter
--- OUTSIDE RECORDS SUMMARY | 2022-09-09 09:40 | XMS_ITS | Encounter Summary ---
:1955 Author Organization [facility] [place] [address] Care Team Providers Name Role Phone Bang Heath MD Primary Care Provider Encounter Details Date Type Department Care Team Description 06/29/2019 Surgery Gastroenterology at [facility] Marily Guillermo, COLONOSCOPY FLEXIBLE, [facility] Rubin velazquez MD WITH BX (WRVU 3.66) [place] [address] [facility] [phone] GASTROENTEROLOGY DEPT. [place], [place] [address] Social History Tobacco Use Types [...] Sign Reading Time Taken Comments Blood Pressure 134/90 06/29/2019 1:42 PM EDT Pulse 58 06/29/2019 1:42 PM EDT Temperature 36.4 ??C (97.5 ??F) 06/29/2019 1:42 PM EDT Respiratory Rate - - Oxygen Saturation 98% 06/29/2019 1:42 PM EDT Inhaled Oxygen Concentration - - [...] more? Visit our health information library at [email or web address]. You can also view health information on [employer], your personal patient account. Log in or sign up today. Enter E264 in the search box to learn more about Colonoscopy: What to Expect at Home. Current as of: November 16, 2018 Content Version: 12.1 ?? [id number] [employer]. Care instructions adapted under license by [facility]. If you have questions about a medical condition or this instruction, always ask your healthcare professional. [employer] disclaims any warranty or liability for your [...] more? Visit our health information library at [email or web address]. You can also view health information on [employer], your personal patient account. Log in or sign up today. Enter C571 in the search box to learn more about Colon Polyps: Care Instructions. Current as of: November 16, 2018 Content Version: 12.1 ?? [id number] [employer]. Care instructions adapted under license by [facility]. If you have questions about a medical condition or this instruction, always ask your healthcare professional. [employer] disclaims any warranty or liability for your use of this information. Please call [phone] before 8pm Mon-Fri with problems, questions or concerns. If you call after 8pm or on weekends, call the Hospital at [phone] and ask to speak to the Director Organizational director on air and the welding pantograph machine operator will contact that person for you. [...] [facility] HEMATOLOGY/[facility] DEPT. [place], [place] [address] (Wo rk) documented as of [...] the results section. COLONOSCOPY, 06/29/2019 3:12 PM [place] in 2 years for POLYPECTOMY, REMOVAL EDT IBD surveillance fro m LESION BY SNARE 06/08/17 (WRVU 4.67) COLONOSCOPY 06/29/2019 3:12 PM [place] in 2 years for FLEXIBLE, WITH BX [...] PM 9 4:06 EDT PM EDT Narrative [facility] - 06/29/2019 4:06 PM EDT Specimen requisition ordered. ??Separate Pathology report to follow L Pedro Luis Guillermo MD PATHOLOGY/CYTOLOGY ORDERABLE S Performing Organization Address [facility] [place] [address] Specimen to Pathology (06/29/2019 3:57 PM EDT) Specimen Anatomical Collection Method Collection Time Receive d Time (Source) Location / / Volume Laterality AP Specimen 06/29/2019 3:57 PM 9 3:57 EDT PM EDT Narrative [facility] - 06/29/2019 3:57 PM EDT Specimen requisition ordered. ??Separate Pathology report to follow L Pedro Luis Guillermo MD PATHOLOGY/CYTOLOGY ORDERABLE S Performing Organization Address [facility] [place] [address] Specimen to Pathology (06/29/2019 3:57 PM EDT) Specimen Anatomical Collection Method Collection Time Receive d Time (Source) Location / / Volume Laterality AP Specimen 06/29/2019 3:57 PM 9 3:57 EDT PM EDT Narrative [facility] - 06/29/2019 3:57 PM EDT Specimen requisition ordered. ??Separate Pathology report to follow L Pedro Luis Guillermo MD PATHOLOGY/CYTOLOGY ORDERABLE S Performing Organization Address [facility] [place] [address] Specimen to Pathology (06/29/2019 3:57 PM EDT) Specimen Anatomical Collection Method Collection Time Receive d Time (Source) Location / / Volume Laterality AP Specimen 06/29/2019 3:57 PM 9 3:57 EDT PM EDT Narrative [facility] - 06/29/2019 3:57 PM EDT Specimen requisition ordered. ??Separate Pathology report to follow L Pedro Luis Guillermo MD PATHOLOGY/CYTOLOGY ORDERABLE S Performing Organization Address [facility]/ZIP [facility] [place] [address] Specimen to Pathology (06/29/2019 3:57 PM EDT) Specimen Anatomical Collection Method Collection Time Receive d Time (Source) Location / / Volume Laterality AP Specimen 06/29/2019 3:57 PM 9 3:57 EDT PM EDT Narrative [facility] - 06/29/2019 3:57 PM EDT Specimen requisition ordered. ??Separate Pathology report to follow L Pedro Luis Guillermo MD PATHOLOGY/CYTOLOGY ORDERABLE S Performing Organization Address [facility] [place] [address] Surgical Pathology Report (06/29/2019 3:36 PM EDT) Component Value Ref Test Analysis Performed At [facility] Range Method Time Signature Surgical [id number] ? Location: 4T; EA07; A [facility] Report The signing pathologist has (i) examined the relevant preparation(s) for the [facility] specimen(s) and (ii) rendered or confirmed [...] dysplasia is seen. CR-PX Electronically signed by: ??Juju MCGINNIS, Rao Elliott Verified: ??07/03/2019 ?Pathologist Performed at: ??-[facility] Dept. of Pathology, [place], [place] CLINICAL INFORMATION Specimen Submitted: A - [...] Organization Address City/State/[place] [address] COLONOSCOPY (06/29/2019 3:24 PM EDT) [facility] Method Time Signature COLONOSCOPY [facility] PROVATION Endoscopy Procedure Date: 06/29/2019 3:24 PM ? Patient Name: Tatyana Skelton ? Date of : 1955 ? Age: 64 ? Order #: [id number] ? Instrument Name: [id number] ? Procedure: ? Colonoscopy Indications: ? High risk colon cancer surveillance : ? Ulcerative colitis Patient Profile: ? This is a 64 year old female. This ? patient has ulcerative pancol itis, is ? taking sulfasalazine and is ? experiencing mild symptoms. Providers: ? Chele Guillermo MD, Erika Vaz ? Nadira, RN, Sonny Prado, Felix Grossman MD: ?Bang Alfasyed Medicines: ? Midazolam 4 mg IV, Fentanyl [...] was evaluat ed using ? the BBPS ([place] Bowel Prepar ation ? Scale) with scores [...] Signature POC Glucose 127 65 - 199 KARIE KOLB mg/dL [facility] LABORATORY Comment: Supplemental ranges: <140 mg/dL before meals <180 mg/dL all other times of the day Specimen Anatomical Collection Method Collection Time Receive d Time (Source) Location / / Volume Laterality Blood specimen 06/29/2019 1:46 PM 019 1:46 (specimen) EDT PM EDT L Pedro Luis Guillermo MD POINT OF CARE TEST ORDERABLE S Performing Organization Address City/State/[place] [address] POCT Fingerstick Glucose (06/29/2019 [...] Rate Site fentaNYL 50 mcg/mL multi-dose Given 06/29/2019 3:29 PM EDT 25 mc g injection ONCE PRN, Starting on Kacy 8 at 1517, Until Kacy 06/29/19 at 1846, Intra-Operative (Intra-Procedure), Routine Given 06/29/2019 3:26 PM EDT 25 mcg Given 06/29/2019 3:20 PM EDT 50 mcg lactated ringers infusion New Bag 06/29/2019 1:45 PM EDT 100 mL/hr 100 mL/hr 100 mL/hr, Intravenous, CONTINUOUS, Starting on Kacy 06/29/19 at 1400, Until Kacy 06/29/19 at 1640, Endoscopy (Day of Procedure) midazolam (PF) (VERSED) multi-dose injec tion Given 06/29/2019 3:29 PM EDT 1 mg ONCE PRN, Starting on Kacy 8 at 1517, Until Kacy 8 at 1846, Intra-Operative (Intra-Procedure), Routine Given 06/29/2019 3:26 PM EDT 1 mg Given 06/29/2019 3:20 PM EDT 1 mg documented in this encounter Active and Recently Administered Medications Times are shown in EDT. Continuous Medication Order 06/27/2019 06/28/2019 06/29/2019 lactated ringers infusion (CANCELED) 1345 (New Bag - Provider: Kalyani Bates RN) 100 mL/hr, at 100 mL/hr, Intravenous, CO NTINUOUS, Starting Kacy 8 at 1400, Until Kacy 06/29/19 at 1640, Endo (Day of Procedure) PRN Medication Order 06/27/2019 06/28/2019 06/29/2019 fentaNYL 50 mcg/mL multi-dose injection (CANCELED) 1517 (Given - Provider: Erika Waddell, ANDREW)1520 (Given - Provider: Erika Waddell, RN)1526 (Given - Provider: Erika Waddell RN)1529 (Given - Provider: Erika Waddell RN) ONCE PRN, Starting Kacy 06/29/19 at 1517, U ntil Kacy 06/29/19 at 1846, Intra-Operative (Intra-Procedure), Routine midazolam (PF) (VERSED) multi-dose injection (CANCELED) 1517 (Given - Provider: Erika Waddell RN)1520 (Given - Provider: Erika Waddell, ANDREW)1526 (Given - Provider: Erika Waddell RN)1529 (Given - Provider: Erika Waddell RN) ONCE PRN, Starting Kacy 06/29/19 at 1517, U ntil Kacy 06/29/19 at 1846, Intra-Operative (Intra-Procedure), Routine documented in this encounter Care Teams Educational Institution President Relationship Specialty Start Date End Date Bang Heath MD PCP - General General Internal Medicine 01/18/[address] [place] [address] documented as of this encounter
--- OUTSIDE RECORDS SUMMARY | 2022-09-09 09:40 | XMS_ITS | Encounter Summary ---
:1955 Author Organization [facility] [place] [address] Care Team Providers Name Role Phone Bang Heath MD Primary Care Provider Reason for Visit Reason Onset Date Comments Medication Refill 12/16/2019 Encounter Details Date Type Department Care Team Description 12/16/2019 Refill Endocrinology at [facility] Tatyana Lea, Type 1 diabetes [facility] Rubin [place] [address] [facility] complication [phone] ENDOCRINOLOGY DE PT [place] [id number] (Wo rk) Social History Tobacco Use Types [...] Visit Hematology and Oncology Aldo Gaming MD [facility] HEMATOLOGY/[facility] DEPT. [place], [place] [address] (Wo rk) documented as of this encounter Visit Diagnoses Diagnosis Type 1 diabetes mellitus without complic ation Type I (juvenile type) diabetes mellitus without mention of complication, not stated as uncontrolled documented in this encounter Care Teams Clinical Lab Specialist Relationship Specialty Start Date End Date Bang Heath MD PCP - General General Internal Medicine 01/18/19 [address] [place] [address] documented as of this encounter
--- OUTSIDE RECORDS SUMMARY | 2022-09-09 09:40 | XMS_ITS | Encounter Summary ---
:1955 Author Organization [facility] [place] [address] Care Team Providers Name Role Phone Shayne Lui MD Primary Care Provider Encounter Details Date Type Department Care Team Description 03/08/2018 Telephone Gastroenterology at [facility] Lyla De La Garza [facility] [place] [address] Social History Tobacco Use Types Packs/Day [...] this encounter Miscellaneous Notes Telephone Encounter - Lyla De La Garza RN - 03/08/2018 8:23 AM EDT Called patient and relayed below message. Telephone Encounter - Lyla De La Garza RN - 03/08/2018 8:23 AM EDT ----- Message from Marily Guillermo MD sent at 03/07/2018 3:51 PM EDT ----- Regarding: RE: patient question No association between the two. C ----- Message ----- From: Lyla De La Garza RN Sent: 03/07/2018 9:20 AM To: Marily Guillermo MD Subject: patient question Franklyn Pedro LuisTatyana called in this morning and wanted to know if there is any possibility of a link between long-term use of sulfasalazine and her new diagnosed DM Type II. Thanks. Lyla documented in this encounter Plan of Treatment Upcoming Encounters Date Type Specialty Care Team Description 10/15/2022 Office Visit Hematology and Oncology Aldo Gaming MD [facility] H[place]OLOGY[place] [address] (Wo rk) documented as of this encounter Visit Diagnoses Not on filedocumented in this encounter Care Teams Batch Unloader Relationship Specialty Start Date End Date Shayne Lui MD PCP - General Family Medicine 06/08/[address] [place] [address] documented as of this encounter
--- OUTSIDE RECORDS SUMMARY | 2022-09-09 09:40 | XMS_ITS | Encounter Summary ---
:1955 Author Organization [facility] [place] [address] Care Team Providers Name Role Phone Bang Heath MD Primary Care Provider Encounter Details Date Type Department Care Team Description 01/18/2019 Office Visit Endocrinology at [facility] Rick Callahan, Hypothyroidism, unspecified type; [facility] MD Tatyana Type 1 diabetes mellitus with hypoglycem ia [place] [address] [place] [address] ENDOCRINOLOGY [place] [address] Social History Tobacco Use Types Packs/Day Years [...] Sign Reading Time Taken Comments Blood Pressure 119/67 01/18/2019 10:50 AM EST Pulse 69 01/18/2019 10:50 AM EST Temperature - - Respiratory Rate - - Oxygen Saturation - - Inhaled Oxygen Concentration - - Weight 65 kg (143 lb 6.4 oz) 01/18/2019 10:50 AM EST Height 170.2 cm (5' 7) 01/18/2019 10:50 AM EST Body Mass Index 22.46 01/18/2019 10:50 AM EST documented in this encounter Progress Notes Tatyana Callahan MD - 01/18/2019 11:00 AM EST Endocrinology Clinic Follow-up Visit Reason for Visit: Follow-up of Diabetes Mellitus Type 1 HISTORY OF PRESENT ILLNESS: Ms. Tatyana Skelton is a 63 y.o. year old lady with history significant for DM type 1 (DINESH), who established care with me about 6 months ago at which time her glucose control was fair, but brittle withsome hypoglycemia in the 50s and some evidence of hypoglycemia unawareness. We planned the following: --cut back Lantus to 12 units daily. [...] already under the care of an excellent life skills educator at [facility], Keisha Fine. Will send her a copy of today's visit note to establish communication. --follow-up in 7 months, labs 1 hour prior to appt Since last visit she has increased her Lantus to 15 units daily and is doing humalog with every meal. She has been having some lows, which she thinks might be related to the fact that she was bolusing humalog for the carb count including the fiber amount. Her PCP adjusted her LT4 dose in September 2018 from 150 mcg daily to 175 mcg daily. Date of Diagnosis: Sep 2017 ?? Last HgbA1c: 5.9% (May 2018), 8.5% (Oct 2017), 10.5% (Sep 2017) ?? Current Diabetes Medication regimen: Lantus 15 units daily Humalog CR 1:15g plus correction 1:50 mg/dL above 150 Metformin 1000mg BID (500mg tabs). FSBG regimen: At least 2-3x/day ?? Hypoglycemia: ?? Diet: tends towards grazing ?? Physical Activity: Smoking: History of complications 1) Nephropathy - Um:cr , sCr 2) Neuropathy - 3) Retinopathy - Last ophtho evaluation November 2018 - no DR ([facility]) 4) CV disease - LDL PAST MEDICAL HISTORY: Patient Active Problem List Diagnosis Date Noted ??? History of diverticulitis 09/17/2014 ??? UC (ulcerative colitis) 09/11/2013 ??? HTN (hypertension) ??? Hypothyroidism MEDICATIONS: Medications 01/18/19 1125 Medication Sig Taking? metFORMIN (GLUCOPHAGE) 500 mg Tablet Take 2 tablets by mouth 2 times daily (with meals). Yes insulin lispro (HUMALOG) Insulin Pen Inject subcutaneously 3 times daily (before meals). Yes LANTUS SOLOSTAR U-100 INSULIN pen Inject 15 Units subcutaneously every morning. Yes levothyroxine (SYNTHROID) 150 mcg Tablet Take 175 mcg by mouth daily. Yes losartan (COZAAR) 50 mg Tablet Take 25 mg by mouth daily. Yes BD ULTRA-FINE SHORT PEN NEEDLE [...] Yes atenolol (TENORMIN) 25 mg tablet Yes ALLERGIES: Allergies Allergen Reactions ??? Contrast [Iodine And Iodide Containing Products] Nausea And Vomiting and Other (See Comments) Neck swelling ??? Lisinopril Other (See Comments) Caused a dry cough SOCIAL HISTORY: Social History Tobacco Use Smoking Status Never Smoker Smokeless Tobacco Never Used FAMILY HISTORY: No family history on file. REVIEW OF SYSTEMS: All 12 systems reviewed and negative except as noted per HPI. PHYSICAL EXAM: Vitals Office Visit from 01/18/2019 in Endocrinology at [place] Weight 65 kg (143 lb 6.4 oz) Height 170.2 cm (5' 7) BSA (Calculated - sq m) 1.75 sq meters BMI (Calculated) 22.46 Heart Rate 69 BP 119/67 ASSESSMENT/PLAN: 1. DM type 1 - A1c overly tight and she has been having lows, but she attributes this at least in part to including fiber content in her carb counts. ?? Lower Lantus dose to 14 units daily ?? Continue current carb ratio and correction factor ?? Continue metformin for now 2. Hypothyroidism - primarily managed by PCP, LT4 dose increased in Sep 2018. TSH level checked today and pending. 3. Follow-up - 6 months, labs 1 hour prior. 25 min of this 40 min face to face visit was spent in counseling about DM mgmt. TATYANA CALLAHAN MD Semiconductor Wafers Saw Operatorinvasive physician Section of Endocrinology [facility] documented in this encounter Plan of Treatment Upcoming Encounters Date Type Specialty Care Team Description 10/15/2022 Office Visit Hematology and Oncology Aldo Gaming MD [facility] ER HEMATOLOGY/ONCOL [facility] DEPT. [place], [place] [address] (Wo rk) documented as of this encounter Results U Albumin/Cre Ratio (08/22/2019 10:13 AM EDT) [facility] Method Time Signature Alb/Cr Ratio, Not Calculated 0 - 29 [facility] Random mcg/mg Cr [facility] Comment: Reference Ranges: <30 [...] 362 U Albumin Conc, Random <3.0 mg/L [facility] U Creatinine 33 mg/dL [facility] Specimen Anatomical Collection Method Collection Time Receive d Time (Source) Location / / Volume Laterality Urine specimen 08/22/2019 10:13 9 (specimen) AM EDT 10:25 AM EDT Resulting Agency Comment Spec In Lab Tatyana Callahan MD URINE ORDERABLES Performing Organization Address City/[facility]/ZIP Code Phon e Number [address] Creatinine (08/22/2019 10:03 AM EDT) P athologist Signature Creatinine 0.72 0.70 - KARIE KOLB 1.20 mg/dL [facility] Estimated GFR 89 >=60 [facility] mL/min/1.7 [facility] 3 m?? [facility] Comment: The eGFR was calculated using the CKD-EP I equation. As with all creatinine based estimates of kidney function, eGFR values calculated with the CKD-EPI equation are not accurate in patients wi th acute kidney failure, extremes of body mass or the acutely ill. [email or web address] eGFR 103 >=60 mL/min/1.73 m?? [facility] Comment: The eGFR was calculated using the CKD-EP I equation. As with all creatinine based estimates of kidney function, eGFR values calculated with the CKD-EPI equation are not accurate in patients wi th acute kidney failure, extremes of body mass or the acutely ill. [email or web address]/[email or web address] Specimen Anatomical Collection Method Collection Time Receive d Time (Source) Location / / Volume Laterality Blood specimen 08/22/2019 10:03 9 (specimen) AM EDT 10:13 AM EDT Resulting Agency Comment Spec In Lab Tatyana Callahan MD CHEMISTRY ORDERABLES Performing Organization Address City/[facility]/ZIP Code Phon e Number [address] (ABNORMAL) TSH (08/22/2019 10:03 AM EDT) P athologist Signature TSH 5.16 (H) 0.27 - 4.20 [facility] [place] mcIU/mL [facility] Specimen Anatomical Collection Method Collection Time Receive d Time (Source) Location / / Volume Laterality Blood specimen 08/22/2019 10:03 9 (specimen) AM EDT 10:13 AM EDT Resulting Agency Comment Spec In Lab Tatyana Callahan MD CHEMISTRY ORDERABLES Performing Organization Address City/State/[place] [address] Hemoglobin A1c (08/22/2019 10:03 AM EDT) athologist Signature Hemoglobin A1C 5.3 4.3 - 5.6 [facility] Comment: Reference Range: [...] Mellitus, Diabetes Care 2013; 36: Suppl. 1, B17-75 Est Avg Gluc 106 mg/dL [facility] Comment: eAG equivalents for HbA1c percentages: HbA1c(%) ?eAG(mg/dL) 6.0 ?126 6.5 ?140 7.0 ?154 7.5 ?169 8.0 ?183 8.5 ?197 9.0 ?212 9.5 ?226 10.0 ? 240 Limitations: The eAG calculation has not been validated on women, individuals below 18 years old and above 70 years old, and individuals with hemoglobinopathies. Additional resources are available on [facility] ADA website. David FONTANEZ, Ethan J, Luis Felipe R, et al. ??Tr anslating the A1C assay into estimated average glucose values. ??Diabetes Care 2008:31(8):4649-6957. Specimen Anatomical Collection Method Collection Time Receive d Time (Source) Location / / Volume Laterality Blood specimen 08/22/2019 10:03 9 (specimen) AM EDT 10:13 AM EDT Resulting Agency Comment Spec In Lab Tatyana Callahan MD CHEMISTRY ORDERABLES Performing Organization Address City/State/[place] [address] documented in this encounter Visit Diagnoses Diagnosis Hypothyroidism, unspecified type Type 1 diabetes mellitus with hypoglycem ia and without coma Type I (juvenile type) diabetes mellitus with other specified manifestations, not stated as uncontrolled documented in this encounter Care Teams Fireproof Door Maker Relationship Specialty Start Date End Date Bang Heath MD PCP - General General Internal Medicine 01/18/[address] [place] [address] documented as of this encounter
--- OUTSIDE RECORDS SUMMARY | 2022-09-09 09:40 | XMS_ITS | Encounter Summary ---
:1955 Author Organization [facility] [place] [address] Care Team Providers Name Role Phone Bang Heath MD Primary Care Provider Encounter Details Date Type Department Care Team Description 02/10/2020 Telephone Endocrinology at [facility] [address] Social History Tobacco Use Types Packs/Day [...] this encounter Miscellaneous Notes Telephone Encounter - Mariah Mason - 02/10/2020 4:39 PM EDT Left message and sent letter to ghada hobson documented in this encounter Plan of Treatment Upcoming Encounters Date Type Specialty Care Team Description 10/15/2022 Office Visit Hematology and Oncology Amberly, Aldo, MD [facility] ER HEMATOLOGY/ONCOL [facility] DEPT. [place], [place] [address] (Wo rk) documented as of this encounter Visit Diagnoses Not on filedocumented in this encounter Care Teams Bass Guitar Teacher Relationship Specialty Start Date End Date Bang Heath MD PCP - General General Internal Medicine 01/18/19 [address] [place] [address] documented as of this encounter
--- OUTSIDE RECORDS SUMMARY | 2022-09-09 09:40 | XMS_ITS | Encounter Summary ---
:1955 Author Organization [facility] [place] [address] Care Team Providers Name Role Phone Shayne Lui MD Primary Care Provider Reason for Visit Reason Onset Date Comments Medication Refill 12/19/2018 Encounter Details Date Type Department Care Team Description 12/19/2018 Refill Endocrinology at [facility] Tatyana Lea MD [facility] marcus [facility] [place] [address] ENDOCRINOLOGY DEPT [phone] [place], [place] [address] (Wo rk) Social History Tobacco [...] [facility] [place], [place] [address] (Wo rk) documented as of this encounter Visit Diagnoses Not on filedocumented in this encounter Care Teams Warehouse Forklift Operator Relationship Specialty Start Date End Date Shayne Lui MD PCP - General Family Medicine 06/08/17 01/17/[address] [place] [address] [address] [place] [address] documented as of this encounter
--- OUTSIDE RECORDS SUMMARY | 2022-09-09 09:40 | XMS_ITS | Encounter Summary ---
:1955 Author Organization [facility] [address] Care Team Providers Name Role Phone Bang Heath MD Primary Care Provider Reason for Visit Reason Onset Date Comments Medication Refill 12/21/2019 Encounter Details Date Type Department Care Team Description 12/21/2019 Refill Endocrinology at [facility] Tatyana Lea, Type 1 diabetes [facility] Rubin [place]az[place] [address] [facility] complication [phone] ENDOCRINOLOGY DE PT [place] [phone] (Wo rk) Social History Tobacco Use Types [...] Visit Hematology and Oncology Aldo Gaming MD [facility] HEMATOLOGY/ONCOL [facility] DEPT. [place], [place] [address] (Wo rk) documented as of this encounter Visit Diagnoses Diagnosis Type 1 diabetes mellitus without complic ation Type I (juvenile type) diabetes mellitus without mention of complication, not stated as uncontrolled documented in this encounter Care Teams Electrical Tester Relationship Specialty Start Date End Date Bang Heath MD PCP - General General Internal Medicine 01/18/19 [address] [place] [address] documented as of this encounter
--- OUTSIDE RECORDS SUMMARY | 2022-09-09 09:40 | XMS_ITS | Encounter Summary ---
:1955 Author Organization [facility] [place] [address] Care Team Providers Name Role Phone Tatyana Grande MD Primary Care Provider Reason for Visit Reason Comments Follow-up Encounter Details Date Type Department Care Team Description 10/05/2016 Office Visit Gastroenterology at [facility] Marily Guillermo Ulcerative colitis [facility] Rubin Cloud MD with complication, [place] [address] [facility] unspecified location [phone] [facility] [place] [address] Social History Tobacco Use Types Packs/Day Years [...] Sign [place] Time Taken Comments Blood Pressure 128/86 10/05/2016 10:06 AM EST Pulse 78 10/05/2016 10:06 AM EST Temperature - - Respiratory Rate - - Oxygen Saturation - - Inhaled Oxygen Concentration - - Weight 79.4 kg (175 lb) 10/05/2016 10:06 AM EST Height 171.5 cm (5' 7.5) 10/05/2016 10:06 AM EST Body Mass Index 27 10/05/2016 10:06 AM EST documented in this encounter Patient Instructions Patient InstructionsLeMarily seymour MD - 10/05/2016 10:00 AM EST # Continue sulfasalazine 2 g (4 tabs) twice per day. # Check complete blood count, liver tests, kidney tests, urinalysis annually to evaluate for rare complications from IBD (PSC) and from mesalamine (interstitial nephritis, abnormal LFTs, myelosuppression). Will have them checked with Dr. Grande's office. # Recommend repeat colonoscopy two years from the last for surveillance for dysplasia. Due May 2017. # Avoid non-steroidal anti-inflammatory medications (NSAIDs) including but not limited to Advil, ibuprofen, Motrin, Aleve, Excedrin, naproxen, Mobic, indomethacin, and aspirin. Acetaminophen (Tylenol) is okay for aches and pains. # Follow-up with me in the office in one year or sooner as needed. documented in this encounter Progress Notes Marily Guillermo MD - 10/05/2016 10:00 AM EST Patient Active Problem List [...] Her last colonoscopy was in 05/2015. She feels great. Stool is regular. There is no abdominal cramping. There is no diarrhea. Occasional blood on tissue. No incontinence, no urgency. She continues of SSZ 2 g twice per day. No adverse effects. Had labs drawn earlier this year at Dr. Grande's office and recalls being told they were normal. PHYSICAL EXAMINATION: Vitals: 10/05/16 1006 BP: 128/86 Pulse: 78 Wt Readings from Last 3 Encounters: 10/05/16 79.4 kg (175 lb) 10/14/15 84.4 kg (186 lb) 09/17/14 78.8 kg (173 lb 12.8 oz) GEN: Healthy-appearing in no acute distress. Appears stated age. IMPRESSION AND RECOMMENDATIONS: Ms. Skelton is doing well in symptomatic remission on sulfasalazine. Recommended continuing the SSZ at current dose. Due for surveillance colonoscopy next summer. Will need routine labs annually with her primary physician. We discussed the following recommendations that were printed out for the patient: # Continue sulfasalazine 2 g (4 tabs) twice per day. # Check complete blood count, liver tests, kidney tests, urinalysis annually to evaluate for rare complications from IBD (PSC) and from mesalamine (interstitial nephritis, abnormal LFTs, myelosuppression). Will have them checked with Dr. Grande. # Recommend repeat colonoscopy two years from the last for surveillance for dysplasia. Due May 2017. # Avoid non-steroidal anti-inflammatory medications (NSAIDs) including but not limited to Advil, ibuprofen, Motrin, Aleve, Excedrin, naproxen, Mobic, indomethacin, and aspirin. Acetaminophen (Tylenol) is okay for aches and pains. # Follow-up with me in the office in one year or sooner as needed. 10 min of this 15 min [id number] visit was spent counseling the patient in the issues outlined above. Chele Guillermo MD Demolition Engineergrain cleaner and transfer operator Section of Gastroenter[place] [address] documented in this encounter Plan of Treatment Upcoming Encounters Date Type Specialty Care Team Description 10/15/2022 Office Visit Hematology and Oncology Aldo Gaming MD [facility] HEMATOLOGY/[facility] DEPT. [place], [place] [address] (Wo rk) documented as of this encounter Visit Diagnoses Diagnosis Ulcerative colitis with complication, un specified location documented in this encounter Care Teams Tractor Trailer Mechanic Relationship Specialty Start Date End Date Tatyana Grande MD PCP - General 09/17/14 06/07/17 [address] [place] [address] documented as of this encounter
--- OUTSIDE RECORDS SUMMARY | 2022-09-09 09:40 | XMS_ITS | Encounter Summary ---
:1955 Author Organization [place] [address] Care Team Providers Name Role Phone Shayne Lui MD Primary Care Provider Reason for Visit Auth/Cert Specialty Diagnoses / Procedures Referred By Contact Refer red To Contact Diagnoses Encounter for screening for malignant neoplasm of colon 2 YR SURV Procedures PRO COLONOSCOPY, DIAGNOSTIC COLONOSCOPY, DIAGNOSTIC Referral ID Status Reason Start Date Expiration Date Visits Requ ested Visits Authorized [id number] 1 1 Encounter Details Date Type Department Care Team Description 06/08/[address] [facility] Marily Guillermo, COLONOSCOPY FLEXIBLE, [facility] Rubin velazquez MD WITH BX (WRVU 3.66) [place] [address] [facility] [phone] GASTROENTEROLOGY DEPT. [place], [place] [address] Social History Tobacco Use Types Packs/Day Years Used Date Never Smoker Alcohol Use Standard Drinks/Week Comments No 0 [...] Sign Reading Time Taken Comments Blood Pressure 154/93 06/08/2017 10:55 AM EDT Pulse 64 06/08/2017 10:55 AM EDT Temperature - - Respiratory Rate 17 06/08/2017 10:55 AM EDT Oxygen Saturation 98% 06/08/2017 10:55 AM EDT Inhaled Oxygen Concentration - - Weight - - Height - - Body Mass Index - - documented in this encounter Discharge Instructions Discharge InstructionsLety Griffith RN - 06/08/2017 12:40 PM EDT [facility] Colonoscopy: What to Expect at Home Your [...] your stool (feces) for a few days. This care sheet gives you a general idea about how long it will take for you to recover. But each person recovers at a different pace. Follow the steps below to get better as quickly as possible. How can you care for yourself at home? Activity ?? Rest when you feel tired. ?? You can do your normal activities when it feels okay to do so. Diet ?? Follow your doctor's directions for eating. ?? Unless your doctor has told you not to, drink plenty of fluids. This helps to replace the fluids that were lost during the colon prep. ?? Do not drink alcohol. Medicines ?? Your doctor will tell you if and when you can restart your medicines. He or she will also give you instructions about taking any new medicines. ?? If you take blood thinners, such as warfarin (Coumadin), clopidogrel (Plavix), or aspirin, be sure to talk to your doctor. He or she will tell you if and when to start taking those medicines again. Make sure that you understand exactly what your doctor wants you to do. ?? If polyps were removed or a biopsy was done during the test, your doctor may tell you not to takeaspirin or other anti-inflammatory medicines for a few days. These include ibuprofen (Advil, Motrin)and naproxen (Aleve). Other instructions ?? For your safety, do not drive or operate machinery until the medicine wears off and you can thinkclearly. Your doctor may tell you not to drive or operate machinery until the day after your test. ?? Do not sign legal documents or make [...] need emergency care. For example, call if: ?? You passed out (lost consciousness). ?? You pass maroon or bloody stools. ?? You have severe belly pain. Call your doctor now or seek immediate medical care if: ?? Your stools are black and tarlike. ?? Your stools have streaks of blood, but you did not have a biopsy or any polyps removed. ?? You have belly pain, or your belly is swollen and firm. ?? You vomit. ?? You have a fever. ?? You are very dizzy. Watch closely for changes in your health, and be sure to contact your doctor if you have any problems. Where can you learn more? Visit our health information library at [email or web address] You can also view health information on [employer], your personal patient account. Log in or sign up today. Enter E264 in the search box to learn more about Colonoscopy: What to Expect at Home. ?? [id number] [employer]. Care instructions adapted under license by [facility]. This care instruction is for use with your licensed healthcare professional. If you have questionsabout a medical condition or this instruction, always ask your healthcare professional. [employer] disclaims any warranty or liability for your use of this information. Content Version: 11.0.847056; Current as of: October 18, 2015 documented in this encounter Medications at Time of Discharge Medication Sig Dispensed Refills Start Date End Date Calcium Carbonate-Vitamin D3 Take by mouth 0 600 mg(1,500mg) -400 unit daily. Capsule atenolol (TENORMIN) 25 mg 0 03/07/2010 tablet sulfaSALAzine (AZULFIDINE) TAKE FOUR 720 tablet 3 7 04/21/2018 500 mg Tablet TABLETS BY MOUTH TWICE A DAY hydrochlorothiazide Take 12.5 mg by 0 01/18/2019 (MICROZIDE) 12.5 mg Capsule mouth daily. levothyroxine (SYNTHROID) 88 Take 150 mcg by 0 06/22/2018 mcg tablet mouth daily. CIS Free Text Med - Daily 0 03/07/2010 06/22/2018 Multivitamin documented as of this encounter H&P Notes Marily Guillermo MD - 06/08/2017 11:41 AM EDT Gastroenterology and Hepatology Pre-Procedure History and Physical Exam Procedure: Colonoscopy: Indication: UC for surveillance Patient Active Problem List Diagnosis Code [...] [facility] HEMATOLOGY/[facility] DEPT. [place] [id number] (Wo rk) documented as of this encounter Procedures Procedure Name Priority Date/Time Associated Comments Diagnosis SPECIMEN TO PATHOLOGY Routine 06/08/2017 12:23 Re sults for this PM EDT procedure are i n the results section. SPECIMEN TO PATHOLOGY Routine 06/08/2017 12:23 Re sults for this PM EDT procedure are i n the results section. SPECIMEN TO PATHOLOGY Routine 06/08/2017 12:23 Re sults for this PM EDT procedure are i n the results section. SPECIMEN TO PATHOLOGY Routine 06/08/2017 12:23 Re sults for this PM EDT procedure are i n the results section. SURGICAL PATHOLOGY Routine 06/08/2017 12:22 Resul ts for this REPORT PM EDT procedure are i n the results section. COLONOSCOPY FLEXIBLE, 06/08/2017 11:49 2 YR SURV WITH BX (WRVU 3.66) AM EDT COLONOSCOPY Routine 06/08/2017 11:46 Results for this AM EDT procedure are i n the results section. documented in this encounter Results Specimen to Pathology (surgical or derm) (06/08/2017 12:23 PM EDT) Specimen Anatomical Collection Method Collection Time Receive d Time (Source) Location / / Volume Laterality AP Specimen 06/08/2017 12:23 06/08/2017 PM EDT 12:23 PM EDT Narrative [facility] - 06/08/2017 12:23 PM EDT Specimen requisition ordered. ??Separate Pathology report to follow Marily Guillermo MD PATHOLOGY/CYTOLOGY ORDERABLE S Performing Organization Address City/State/Z[place] [address] Specimen to Pathology (surgical or derm) (06/08/2017 12:23 PM EDT) Specimen Anatomical Collection Method Collection Time Receive d Time (Source) Location / / Volume Laterality AP Specimen 06/08/2017 12:23 06/08/2017 PM EDT 12:23 PM EDT Narrative [facility] - 06/08/2017 12:23 PM EDT Specimen requisition ordered. ??Separate Pathology report to follow L Pedro Luis Guillermo MD PATHOLOGY/CYTOLOGY ORDERABLE S Performing Organization Address City/[facility]/[place]IP [place] [address] Specimen to Pathology (surgical or derm) (06/08/2017 12:23 PM EDT) Specimen Anatomical Collection Method Collection Time Receive d Time (Source) Location / / Volume Laterality AP Specimen 06/08/2017 12:23 06/08/2017 PM EDT 12:23 PM EDT [facility] 06/08/2017 12:23 PM EDT Specimen requisition ordered. ??Separate Pathology report to follow L Pedro Luis Guillermo MD PATHOLOGY/CYTOLOGY ORDERABLE S Performing Organization Address City/[facility] [place] [address] Specimen to Pathology (surgical or derm) (06/08/2017 12:23 PM EDT) Specimen Anatomical Collection Method Collection Time Receive d Time (Source) Location / / Volume Laterality AP Specimen 06/08/2017 12:23 06/08/2017 PM EDT 12:23 PM EDT Narrative [facility] OR - 06/08/2017 12:23 PM EDT Specimen requisition ordered. ??Separate Pathology report to follow L Pedro Luis Guillermo MD PATHOLOGY/CYTOLOGY ORDERABLE S Performing Organization Address City/[facility]/[place] [address] Surgical Pathology Report (06/08/2017 12:22 PM EDT) Component Value Ref Test Analysis Performed At [facility] Range Method Time Signature Surgical [id number] ?Location: 4T; EA; A [facility] Report The signing pathologist has (i) examined the relevant preparation(s) for the MEMORIAL specimen(s) and (ii) rendered or confirmed the diagnosis(es) . HOSPITAL LABORATORY . ?Surgic al Pathology DIAGNOSIS A - Right colon, ??biopsy: Colonic mucosa within normal limits. B - Transverse colon, ?? biopsy: Colonic mucosa within normal limits. C - Descending colon, ?? biopsy: Colonic mucosa within normal limits. D - Rectosigmoid colon, ?? biopsy: Patchy mildly active chronic colitis with focal active inflammation, mild crypt architecture distortion, paneth cell me taplasia, and intramucosal hemorrhage. No dysplasia is seen. CR-PX Electronically signed by: ??Andrea MCGINNIS, Roxi Verified: ??06/09/2017 ?Pathologist CLINICAL INFORMATION Specimen Submitted: A - Non-targeted biopsies R colon B - Non-targeted biopsies transverse C - Non-targeted biopsies descending colon D - Non-targeted biopsies Rectosigmoid colon Clinical History: 62-year-old with history of UC for surveillance Clinical Diagnosis: Same SPECIMEN PROCESSING A - Labeled/Fixative: Non-targeted biopsies-R colon, formali n. Quantity/Size: Twelve, 0.1-0.3 cm. Tissue Description: Soft wilkerson tissue. Sections/Processing: (T3) B - Labeled/Fixative: Non-targeted biopsies-transverse, form basim. Quantity/Size: Nine, 0.2-0.3 cm. Tissue Description: Soft wilkerson tissue. Sections/Processing: (T2) C - Labeled/Fixative: Non-targeted biopsies-descending colon , formalin. Quantity/Size: Nine, 0.1-0.3 cm. Tissue Description: Soft wilkerson tissue. Sections/Processing: (T2) D - Labeled/Fixative: Non-target biopsies-rectosigmoid colon , formalin. Quantity/Size: Eight, 0.1-0.4 cm. Tissue Description: Soft wilkerson to red-wilkerson tissue. Sections/Processing: (T2) ??aretha Specimen (Source) Anatomical Collection Method Collection Time Re ceived Time Location / / Volume Laterality 06/08/2017 12:22 PM EDT L Pedro Luis Guillermo MD PATHOLOGY/CYTOLOGY ORDERABLE S Performing Organization Address City/State/[place] [address] COLONOSCOPY (06/08/2017 11:46 AM EDT) [facility] gist Method Time Signature COLONOSCOPY [facility] Endoscopy Procedure Date: 06/08/2017 11:46 AM ? Patient Name: Tatyana Skelton ? Date of : 1955 ? Age: 62 ? Order #: [id number] ? Instrument Name: -[id number] ? Procedure: ? Colonoscopy Indications: ? High risk colon cancer surveillance : ? Ulcerative colitis Patient Profile: ? This is a 62 year old female. This ? patient has ulcerative pancol itis, is ? taking mesalamine and is asym ptomatic. Providers: ? Chele Guillermo MD, Ricarda Putnam , ? RN, Pearl Todd Referring MD: ?Tatyana Grande MD Medicines: ? Midazolam 4 mg IV, Fentanyl 175 ? micrograms IV Complications: ? No immediate [...] was evaluat ed using ? the BBPS (Edmond Bowel Prepar ation ? Scale) with scores of: Right Colon = ? 3 (entire mucosa seen well wi th no ? residual staining, small frag ments of ? stool or opaque liquid), Zimmerman sverse ? Colon = 3 (entire mucosa seen well ? with no residual staining, sm all ? fragments of stool or opaque liquid) ? and Left Colon = 2 (minor uvaldo unt of ? residual staining, small frag ments of ? stool and/or opaque liquid, b ut ? mucosa seen well). The total BBPS ? score equals 8. The quality o f the ? bowel preparation was good. S cope ? withdrawal time was 15 minute s. ? Findings: ? The perianal and digital rectal examinations were ? normal. ? The terminal ileum appeared normal. ? Inflammation was not found based on the endoscopic ? appearance of the mucosa. This was graded as Price ? Score 0 (normal or inactive disease). In the sigmoid ? colon, there was focal intramucosal erythema related ? to likely intramucosal hemorrhage related to ? diverticular disease and mycosis. Eight biopsies were ? obtained with cold forceps for surveillance randomly ? each from the right colon, transverse, descending and ? rectosigmoid colon. ? Multiple small and large-mouthed diverticula were ? found in the sigmoid colon. ? Moderate Sedation: ? I was present during the intraservice time as ? documented by the sedation RN. Impression: ?- The examined portion of the ileu m ? was normal. ? - Ulcerative colitis, in amaya ssion. ? Inflammation was not found on today's ? exam (based on the endoscopic ? appearance of the mucosa). Th is was ? graded as Price Score 0 (july l or ? inactive disease). ? - Patchy sigmoid intramucosal minor ? hemorrhage. ? - Moderate diverticulosis in the ? sigmoid colon. ? - Eight biopsies were obtaine d each ? from the right colon, transve rse, ? descending and rectosigmoid c olon. Recommendation: ?- Await pathology results. ? - Continue current sulfasalaz ine ? regimen. ? - Follow-up in IBD Clinic ? Attending Participation: ? I personally performed the entire procedure. ? L. Pedro Luis Guillermo MD 06/08/2017 12:31:01 PM Number of Addenda: 0 Note Initiated On: 06/08/2017 11:46 AM Specimen (Source) Anatomical Collection Method Collection Time Re ceived Time Location / / Volume Laterality 06/08/2017 11:46 AM EDT Tatyana Grande MD GENERAL SURGICAL ORDERABLES Performing Organization Address City/State/ZIP Code Phon e Number [facility] documented in this encounter Visit Diagnoses Not on filedocumented in this encounter Administered Medications Inactive Administered Medications - up to 3 most recent administrations Medication Order MAR Action Action Date Dose Rate Site fentaNYL 50 mcg/mL multi-dose Given 06/08/2017 12:01 PM EDT 25 m cg injection ONCE PRN, Starting on Wed06/08/17 at 1152, Until Wed06/08/17 at 1535, Intra-Operative (Intra-Procedure), Routine Given 06/08/2017 11:58 AM EDT 50 mcg Given 06/08/2017 11:55 AM EDT 50 mcg lactated Ringers infusion New Bag 06/08/2017 11:15 AM EDT 50 mL/hr 50 mL/hr 50 mL/hr, Intravenous, CONTINUOUS, Starting on Wed06/08/17 at 1115, Until Wed06/08/17 at 1317, Endoscopy (Day of Procedure) midazolam (PF) (VERSED) 1 mg/mL multi-dose Given 06/08/2017 12:0 1 PM EDT 1 mg injection ONCE PRN, Starting on Wed06/08/17 at 1152, Until Wed06/08/17 at 1535, Intra-Operative (Intra-Procedure), Routine Given 06/08/2017 11:58 AM EDT 1 mg Given 06/08/2017 11:55 AM EDT 1 mg documented in this encounter Active and Recently Administered Medications Times are shown in EDT. Continuous Medication Order 06/06/2017 06/07/2017 06/08/2017 lactated Ringers infusion (CANCELED) 1115 (New Bag - Provider: Cordelia Claudio RN) 50 mL/hr, at 50 mL/hr, Intravenous, CONT INUOUS, Starting Wed06/08/17 at 1115, Until Wed06/08/17 at 1317, Endo (Day of Procedure) PRN Medication Order 06/06/2017 06/07/2017 06/08/2017 fentaNYL 50 mcg/mL multi-dose injection (CANCELED) 1152 (Given - Provider: Ricarda Putnam RN)1155 (Given - Provider: Ricarda Putnam RN)1158 (Given - Provider: Ricarda Putnam RN)1201 (Given - Provider: Ricarda Putnam RN) ONCE PRN, Starting Wed06/08/17 at 1152, Until Wed06/08/17 at 1535, Intra- Operative (Intra-Procedure), Routine midazolam (PF) (VERSED) 1 mg/mL multi-dose injection (CANCELED) 1152 (Given - Provider: Ricarda Putnam RN)1155 (Given - Provider: Ricarda Putnam RN)1158 (Given - Provider: Ricarda Putnam RN)1201 (Given - Provider: Ricarda Putnam RN) ONCE PRN, Starting 7/11/17 at 1152, Until Wed06/08/17 at 1535, Intra- Operative (Intra-Procedure), Routine documented in this encounter Care Teams Audograph Operator Relationship Specialty Start Date End Date Shayne Lui MD PCP - General Family Medicine 06/08/17 01/17/[address] [place] [address] documented as of this encounter
--- OUTSIDE RECORDS SUMMARY | 2022-09-09 09:40 | XMS_ITS | Encounter Summary ---
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 Phone Note [] Patient not reached [x] Patient reached and the following information was reviewed/obtained per protocol: [x] Confirmed patient name and date of [x] Confirmed telemedicine kristin (Vidyo and Virtual Visit) is downloaded and functioning [x] Confirmed location of patient - TeleVisit is taking place in [x] [place] [] [place] [] If not on myDH, working on signing up for myD [] Confirmed has completed any pre-visit questionnaires [] If has not received required pre-visit questionnaires, send via myD [x] Reviewed patient medications [x] Documented self-reported vitals: [x] Weight: 145lbs [x] Height 57 [] pulse recorded: [] Other information or concerns documented in this encounter Plan of Treatment Upcoming Encounters Date Type Specialty Care Team Description 10/15/2022 Office Visit Hematology and Oncology Aldo Gaming MD [facility] HEMATOLOGY/[facility] DEPT. [place], [place] [address] (Wo rk) documented as of this encounter Visit Diagnoses Not on filedocumented in this encounter Care Teams Clock Maker Relationship Specialty Start Date End Date Bang Heath MD PCP - General General Internal Medicine 01/18/[address] [place] [address] documented as of this encounter
--- OUTSIDE RECORDS SUMMARY | 2022-09-09 09:40 | XMS_ITS | Encounter Summary ---
:1955 Author Organization [facility] [place] [address] Care Team Providers Name Role Phone Tatyana Grande MD Primary Care Provider Reason for Visit Reason Comments Medication Refill Sulfasalazine Encounter Details Date Type Department Care Team Description 04/13/2016 Refill Gastroenterology at [facility] Carolin Will, [facility] [place] [address] [facility] [phone] GASTROENTEROLOGY DEPT. [place], [place] [address] (Wo rk) Social History Tobacco [...] Visit Hematology and Oncology Aldo Gaming MD [facility] HEMATOLOGY/[place], [place] [address] (Wo rk) documented as of this encounter Visit Diagnoses Not on filedocumented in this encounter Care Teams Commissions Specialist Relationship Specialty Start Date End Date Tatyana Grande MD PCP - General 09/17/14 06/07/17 [address] [place] [address] documented as of this encounter
--- OUTSIDE RECORDS SUMMARY | 2022-09-09 09:40 | XMS_ITS | Encounter Summary ---
:1955 Author Organization [facility] [place] [address] Care Team Providers Name Role Phone Bang Heath MD Primary Care Provider Reason for Visit Reason Onset Date Comments Medication Refill 04/11/2020 Encounter Details Date Type Department Care Team Description 04/11/2020 Refill Dermatology at [facility] Roxi Lopez LPN [address] [place] [address] Social History Tobacco Use Types Packs/Day Years [...] this encounter Miscellaneous Notes Telephone Encounter - Roxi Lopez LPN - 04/11/2020 11:07 AM EDT Rx refill request: One Touch Verio Strip. Check blood glucose 6 times daily and additionally as Needed. Last office visit: 04/04/2020, telehealth Last refill: 01/18/2019 Roxi lopez LPN documented in this encounter Plan of Treatment Upcoming Encounters Date Type Specialty Care Team Description 10/15/2022 Office Visit Hematology and Oncology Aldo Gaming MD [facility] [place] [place] [address] (Wo rk) documented as of this encounter Visit Diagnoses Not on filedocumented in this encounter Care Teams Product Control And Logistics Analyst Relationship Specialty Start Date End Date Bang Heath MD PCP - General General Internal Medicine 01/18/[address] [place] [address] documented as of this encounter
--- OUTSIDE RECORDS SUMMARY | 2022-09-09 09:40 | XMS_ITS | Encounter Summary ---
:1955 Author Organization [facility] [place] [address] Care Team Providers Name Role Phone Bang Heath MD Primary Care Provider Reason for Visit Reason Onset Date Comments Medication Refill 06/20/2019 Encounter Details Date Type Department Care Team Description 06/20/2019 Refill Endocrinology at [facility] Tatyana Lea, Type 1 diabetes [facility] Rubin [place]quez [place] [address] [facility] complication [phone] PT [place] [id number] (Wo rk) Social History Tobacco Use Types [...] Visit Hematology and Oncology Aldo Gaming MD [facility] HEMATOLOGY/[facility] DEPT. [employer], [place] [address] (Wo rk) documented as of this encounter Visit Diagnoses Diagnosis Type 1 diabetes mellitus without complic ation Type I (juvenile type) diabetes mellitus without mention of complication, not stated as uncontrolled documented in this encounter Care Teams Contestant Coordinator Relationship Specialty Start Date End Date Bang Heath MD PCP - General General Internal Medicine 01/18/19 [address] [place] [address] documented as of this encounter
--- OUTSIDE RECORDS SUMMARY | 2022-09-09 09:40 | XMS_ITS | Encounter Summary ---
:1955 Author Organization [facility] [place] [address] Care Team Providers Name Role Phone Shayne Lui MD Primary Care Provider [phone] Reason for Visit Reason Comments Medication Refill Encounter Details Date Type Department Care Team Description 04/21/2018 Refill Gastroenterology at [facility] Carolin Will, [facility] [place] [address] [facility] [phone] GASTROENTEROLOGY DEPT. [place], [place] [address] (Wo rk) Social History Tobacco [...] Visit Hematology and Oncology Aldo Gaming MD [facility] ER HEMATOLOGY/[facility] DEPT. [place], [place] [address] (Wo rk) documented as of this encounter Visit Diagnoses Not on filedocumented in this encounter Care Teams Building Custodial Supervisor Relationship Specialty Start Date End Date Shayne Lui MD PCP - General Family Medicine 06/08/17 01/17/[address] [place] [address] [address] [place] [address] documented as of this encounter
--- OUTSIDE RECORDS SUMMARY | 2022-09-09 09:40 | XMS_ITS | Encounter Summary ---
:1955 Author Organization [facility] [place] [address] Care Team Providers Name Role Phone Bang Heath MD Primary Care Provider Reason for Visit Reason Comments Abnormal Function Study, EKG Hypertension Consultation (Urgent) - Specialty Diagnoses / Procedures Referred By Contact Refer red To Contact Cardiology Diagnoses Abnormal electrocardiogram (ECG) (EKG) ABNORMAL EKG Bang Heath MD Henkin, MD Willard [address] [facility] 1 CARDIOLOGY DEPT [place], [place] [address] [address] [place] [address] Fax: Referral ID Status Reason Start Date Expiration Date Visits V isits Requested Authorized [id number] Consult, Test 09/14/2019 03/15/2020 [facility] PCP Updated and/or Approved Encounter Details Date Type Department Care Team Description 09/22/2019 Office Visit Cardiology at [facility] Thaddeus, Abnormal ECG during exercise stress test; [facility] MD Willard Hypertension, essential, benign; Drive [facility] Other hyperlipidemia [facility] [id number] CARDIOLOGY DEPT [phone] [place], [place] [address] Social History Tobacco Use Types Packs/Day Years [...] Sign Reading Time Taken Comments Blood Pressure 119/56 09/22/2019 10:38 AM EDT Pulse 69 09/22/2019 10:38 AM EDT Temperature - - Respiratory Rate - - Oxygen Saturation 98% 09/22/2019 10:38 AM EDT Inhaled Oxygen Concentration - - Weight 63.5 kg (140 lb) 09/22/2019 10:38 AM EDT Height 170.2 cm (5' 7) 09/22/2019 10:38 AM EDT Body Mass Index 21.93 09/22/2019 10:38 AM EDT documented in this encounter Progress Notes Willard Travis MD - 09/22/2019 10:40 AM EDT Images from the original note were not included. [facility] CASIMIRO Jones [phone] CARDIOVASCULAR MEDICINE OUTPATIENT CONSULTATION Tatyana Skelton [id number] 09/22/2019 REFERRING PROVIDER: Bang Heath CHIEF COMPLAINT: Chief Complaint Patient presents with ??? Abnormal Function Study, EKG ??? Hypertension PROBLEM LIST Patient Active Problem List Diagnosis ??? History [...] Biopsies negative. ?? CT scan 07/25/13 ( [facility] [place] [facility]) : Thickening of the wall of the mid sigmoid colonwith pericolonic infiltration and reactive adenopathy. Trace amount of pelvic and abdominal free fluid. ..... ?? Prednisone remotely in the past x2 with flare up , last use about 22 years ago. ?? Sulfasalazine 2500 mg daily - increased to 4 g daily 08/2013. ??? HTN (hypertension) ??? Hypothyroidism HISTORY OF PRESENT ILLNESS: Mrs. Skelton is a very pleasant 64-year-old woman with history of hypertension, diabetes, ulcerative colitis, hypothyroidism who presents for evaluation of abnormal stress test. About 2 months ago, whenshe was making dinner, she had sudden onset of nausea and fatigue. She checked her blood sugar at that time, and it was 189. She decided to go to bed she felt very tired, woke up in the morning felt well. About 3 weeks ago, when her was cooking dinner, when she was sitting down, she again had sudden onset of nausea. She took Tums, but ended up vomiting them. Her blood sugar at that time was 120. She went to bed, woke up in the morning, and felt back to normal. Due to the symptoms, her primary care provider obtained a nuclear stress test. She exercised to 8.4 METS; during exercise, [address] depressions in inferior leads were noted, which resolved with recovery. On imaging portion, there was no evidence of scar or ischemia. She did not have any symptoms during the stress test. She was started on clopidogrel and referred for cardiology for further management. On discussion with the patient, she is quite active on a regular day. 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 She has never had any chest pain. She has dyspnea on exertion with strenuous activity, such as climbing mountains. She has no PND, orthopnea, lower extremity edema. Her hypertension is well controlled. She denies palpitations, claudication, or symptoms of TIA/stroke. PAST MEDICAL HISTORY: Past Medical History: Diagnosis Date ??? History of diverticulitis 09/17/2014 ??? HTN (hypertension) ??? Hypothyroidism ??? UC (ulcerative colitis) 09/11/2013 REVIEW OF SYSTEMS: [facility] Pre Appointment Symptom Review 09/15/2019 Angina (chest discomfort) Frequency: Rare Shortness of breath: Only with moderate or strenous activity Palpitations (skipped beats): No Leg swelling: No Dizziness/light headedness: No Loss of consciousness: No Difficulty lying flat (because of breathing): No Chills: No Fatigue: Yes Fever: No Unintended weight change: No Nosebleeds: No Difficulty swallowing: No Visual disturbances: No Frequent cough: No Wheezing: No Snoring: No Abdominal pain: No Diarrhea: No Blood in bowel movement: No Black, tarry bowel movement: No Nausea/vomiting: Yes Heat/cold intolerance: No Problems urinating: No Joint pains: Yes Muscle pain: Yes Rash: Yes Weakness/numbness: No Speech problems: No Easy bruising/bleeding: No Depression: No Anxiety: No Poor sleep: No FAMILY HISTORY: No family history on file. SOCIAL HISTORY: Social History Tobacco Use ??? Smoking status: Never Smoker ??? Smokeless tobacco: Never Used Substance Use Topics ??? Alcohol use: No MEDICATIONS: Current Outpatient Medications Medication Sig Dispense Refill ??? levothyroxine (SYNTHROID) 175 mcg Tablet Take 1 tablet by mouth daily. 90 tablet 3 ??? LORazepam (ATIVAN) 0.5 mg Tablet ??? UNIFINE PENTIPS 31 gauge x 3/16 Needle USE 1 PEN NEEDLE FOUR TIMES A DAY TO INJECT INSULIN 3 ??? metFORMIN (GLUCOPHAGE) 500 mg Tablet Take 2 tablets by mouth 2 times daily (with meals). 180 tablet 3 ??? sulfaSALAzine (AZULFIDINE) 500 mg Tablet Take 4 tablets by mouth 2 times daily. 720 tablet 3 ??? LANTUS SOLOSTAR U-100 INSULIN pen Inject 14 Units subcutaneously every morning. 15 mL 3 ??? insulin lispro (HUMALOG) Insulin Pen Inject 1-6 Units subcutaneously 3 times daily (before meals). 15 mL 3 ??? BD ULTRA-FINE SHORT PEN NEEDLE 31 gauge x 5/16 Needle Inject 1 each subcutaneously 4 times daily. 600 each 3 ??? ONETOUCH VERIO Strip Check blood glucose 6 times daily and additionally as needed. 600 each 3 ??? ONE TOUCH DELICA 33 gauge Misc 1 each by Misc.(Non-Drug; Combo Route) route 6 times daily. 600 each 3 ??? glucagon, Human Recombinant, (GLUCAGON EMERGENCY KIT, HUMAN,) 1 mg Recon Soln Inject 1 mL into the muscle as needed (severe hypoglycemia with unconsciousness). 3 each 3 ??? losartan (COZAAR) 50 mg Tablet Take 25 mg by mouth daily. 3 ??? Chromium Picolinate 200 mcg Tablet Take 200 mcg by mouth daily. ??? multivitamin (THERAGRAN) Tablet Take 1 tablet by mouth daily. ??? Calcium Carbonate-Vitamin D3 600 mg(1,500mg) -400 unit Capsule Take by mouth daily. ??? atenolol (TENORMIN) 25 mg tablet ??? atorvastatin (LIPITOR) 40 mg Tablet Take 1 tablet by mouth daily. 90 tablet 3 No current facility-administered medications for this visit. ALLERGIES: Contrast [iodine and iodide containing products] and Lisinopril PHYSICAL EXAMINATION: Vital Signs: BP 119/56 Pulse 69 Ht 170.2 cm (5' 7) Wt 63.5 kg (140 lb) SpO2 98% BMI 21.93 kg/m?? Exam Details: General: Pleasant 64 y.o. female in no acute distress Eyes: No scleral icterus ENT: Moist mucous membranes Lymph: No cervical or supraclavicular lymphadenopathy Heart: Regular rate and rhythm, normal S1/S2, no murmurs/rubs/gallops appreciated, PMI non-displaced Lungs: Clear to ascultation bilaterally Abdomen: Soft, non-tender, non-distended, normoactive bowel sounds noted. No hepatosplenomegaly Extremities: No peripheral edema noted. No ulcerations noted. Vessels: No carotid bruits appreciated. Neuro: No gross abnormalities noted Psych: Alert and oriented 3 x, normal affect DATA PERSONALLY REVIEWED: Last 3 Lytes Recent Labs 08/22/19 1003 01/18/19 0948 CREATININE 0.72 0.64* EKG 09/22/19: NSR 62 bpm, poor R wave progression, no ST-T wave changes Stress MPI report 09/11/19: no ischemia or scar, [address] depressions during exercise thatresolved in recovery ASSESSMENT AND PLAN: #1 Discordant ECG and imaging stress test Mrs. Skelton is a very pleasant 63-year-old woman with risk factors for coronary disease include hypertension and diabetes who presents for evaluation of discordant findings on exercise nuclear stress test. She she did have inferior ST depressions at exercise which resolved with recovery but she was asy mptomatic; additionally, imaging portion of the stress test was unremarkable without scar or ischemia. Thus, I believe that this is a false positive stress ECG test, and false positive stress ECGs tendto occur more women. It is quite reassuring that her imaging portion was normal. Additionally, she is quite active without any symptoms. Thus, I do not think any further work-up is necessary. I think she should stop clopidogrel. She can be as active as she would like. I did tell her that if she does note to have new chest pain or shortness of breath with exertion progress, she should seek evaluation right away. Given her risk factors, I do think statin is important to reduce future risk of [place] or stroke. Her hypertension is well controlled on current medications. Plan: 1. No further work-up is necessary. 2. Stop clopidogrel. 3. Start atorvastatin 40 mg daily. 4. Follow-up as needed. Thank you for allowing me to participate in the care of your patient. Please do not hesitate to contact me with any questions or concerns. Willard Travis MD, MPH, [facility] Cardiovascular Monitoring EngineerMobility Architectrotoformer [place] [address] documented in this encounter Plan of Treatment Upcoming Encounters Date Type Specialty Care Team Description 10/15/2022 Office Visit Hematology and Oncology Aldo Gaming MD [facility] ER HEMATOLOGY/[facility] DEPT. [place], [place] [address] (Wo rk) documented as of this encounter Procedures Procedure Name Priority Date/Time Associated Diagnosis Comme nts EKG 12-LEAD Routine 09/22/2019 10:52 AM Abnormal ECG during R esults for this EDT exercise stress test procedu re are in the results section . documented in this encounter Results EKG 12 Lead (09/22/2019 10:52 AM EDT) Component Value Ref Range Test Analysis Performed Pathologis t Method Time At Signature Ventricular rate 62 BPM MUSE SYSTEM Atrial Rate 62 BPM MUSE SYSTEM P-R Interval 132 ms MUSE SYSTEM QRS Duration 76 ms MUSE SYSTEM Q-T Interval 422 ms MUSE SYSTEM QTC Calculated 428 ms MUSE SYSTEM (Bezet) Calculated P [place] 46 degrees MUSE SYSTEM Calculated R [place] 51 degrees MUSE SYSTEM Calculated T [place] 44 degrees MUSE SYSTEM INTERPRETATION Normal sinus rhythm MUSE SYSTEM Anteroseptal infarct , age undetermined Abnormal ECG No previous ECGs available Confirmed by MD Palma Daniel ([id number]) on 09/25/2019 10:44: 19 AM Specimen Anatomical Collection Method Collection Time Receive d Time (Source) Location / / Volume Laterality 09/22/2019 10:52 09/25/2019 AM EDT 10:44 AM EDT Willard Travis MD ECG ORDERABLES Performing Organization Address City/State/ZIP Code Phon e Number MUSE SYSTEM documented in this encounter Visit Diagnoses Diagnosis Abnormal ECG during exercise stress test Hypertension, essential, benign Essential hypertension, benign Other hyperlipidemia documented in this encounter Care Teams Sde Relationship Specialty Start Date End Date Bang Heath MD PCP - General General Internal Medicine 01/18/19 [address] [place] [address] documented as of this encounter
--- OUTSIDE RECORDS SUMMARY | 2022-09-09 09:40 | XMS_ITS | Encounter Summary ---
:1955 Author Organization [facility] [place] [address] Care Team Providers Name Role Phone Bang Heath MD Primary Care Provider Reason for Visit Reason Onset Date Comments Medication Refill 02/13/2020 Encounter Details Date Type Department Care Team Description 02/13/2020 Refill Endocrinology at [facility]yana Lea [facility] [place] [phone] ENDOCRINOLOGY DEPT [phone] [place], [place] [address] (Wo rk) Social History Tobacco [...] [facility] ER HEM[facility]OLOGY/[facility] DEPT. [place], [place] [address] (Wo rk) documented as of this encounter Visit Diagnoses Not on filedocumented in this encounter Care Teams Machine Quilt Stuffer Relationship Specialty Start Date End Date Bang Heath MD PCP - General General Internal Medicine 01/18/19 1 [address] [place] [address] documented as of this encounter
--- OUTSIDE RECORDS SUMMARY | 2022-09-09 09:40 | XMS_ITS | Encounter Summary ---
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; [facility] MD Tatyana Type 1 diabetes mellitus [place] [address] [place] [address] [place] [address] Social History Tobacco Use Types Packs/Day Years [...] Sign Reading Time Taken Comments Blood Pressure 129/84 08/22/2019 10:56 AM EDT Pulse 66 08/22/2019 10:56 AM EDT Temperature - - Respiratory Rate - - Oxygen Saturation - - Inhaled Oxygen Concentration - - Weight 64.6 kg (142 lb 6.4 oz) 08/22/2019 10:56 AM EDT Height 170.2 cm (5' 7) 08/22/2019 10:56 AM EDT Body Mass Index 22.3 08/22/2019 10:56 AM EDT documented in this encounter Progress Notes Tatyana Callahan MD - 08/22/2019 11:00 AM EDT Endocrinology Clinic Follow-up Visit Reason for Visit: Follow-up of Diabetes Mellitus Type 1 HISTORY OF PRESENT ILLNESS: Ms. Tatyana Skelton is a 64 y.o. year old lady with history significant for UC DM type 1 (DINESH), who established care with me about 1 year agoo at which time her glucose control was fair, but brittle with some hypoglycemia in the 50s and some evidence [...] already under the care of an excellent pipeline technician at [facility], Keisha Fine. Will send her a copy of today's visit note to establish communication. --follow-up in 7 months, labs 1 hour prior to appt At last visit 6 months ago (Dec 2018), she was doing better, had adjusted her Lantus back up to 15 units daily, but still had some milder lows, but figured out that perhaps it was related to including fiber content with her carb counts when bolusing for food. We lowered her Lantus dose lower to 14 units daily and plan was for her to not include the fiber content. She reports today that things have been going much better on this regimen - no more lows. She carries her glucagon pen with her when hiking but hasn't needed to use it. She even hiked through [place] this summer. Her highest bg was 325 at one point this summer, she used correction and it brought her BGdown to goal. Fasting - 98 - 130s, mostly. one time was 186. Pre-lunch - 130-150. Pre-dinner - 180s-200. She has checked mid-afternoon after lunch and BG does come down after lunch but then rises by pre-dinner. Bedtime - 140s-150s. On two occasions, she had severe nausea prior to supper. She checked BG - was [id number] both times. One of the times, she tried eating a little bit of her supper but didn't help. She has not had early satiety. Date of Diagnosis: Sep 2017 ?? Last HgbA1c: 5.3% (08/22/2019), 5.6% (Dec 2018), 5.9% (May 2018), 8.5% (Oct 2017), 10.5% (Sep 2017) ?? Current Diabetes Medication regimen: Lantus 14 units daily Humalog CR 1:15g plus correction 1:50 mg/dL above 150 Metformin 1000mg BID (500mg tabs). FSBG regimen: 4x/day - TIDAC/HS ?? Hypoglycemia: ?? Diet: tends towards grazing ?? Physical Activity: Smoking: History of complications 1) Nephropathy - Um:cr , sCr 2) Neuropathy - 3) Retinopathy - Last ophtho evaluation November 2018 - no DR ([facility]) 4) CV disease - LDL PAST MEDICAL HISTORY: Patient Active Problem List Diagnosis Date Noted ??? History of diverticulitis 09/17/2014 ??? UC (ulcerative colitis) 09/11/2013 ??? HTN (hypertension) ??? Hypothyroidism MEDICATIONS: Medications 08/22/19 1114 Medication Sig Taking? LORazepam (ATIVAN) 0.5 mg Tablet Yes UNIFINE PENTIPS 31 gauge x 3/16 Needle USE 1 PEN NEEDLE FOUR TIMES A DAY TO INJECT INSULIN Yes metFORMIN (GLUCOPHAGE) 500 mg Tablet Take 2 tablets by mouth 2 times daily (with meals). Yes sulfaSALAzine (AZULFIDINE) 500 mg Tablet Take 4 tablets by mouth 2 times daily. Yes LANTUS SOLOSTAR U-100 INSULIN pen Inject 14 Units subcutaneously every morning. Yes insulin lispro (HUMALOG) Insulin Pen Inject 1-6 Units subcutaneously 3 times daily (before meals). Yes BD ULTRA-FINE SHORT PEN NEEDLE 31 gauge x 5/16 Needle Inject 1 each subcutaneously 4 times daily. Yes ONETOUCH VERIO Strip Check blood glucose 6 times daily and additionally as needed. Yes ONE TOUCH DELICA 33 gauge Misc 1 each by Misc.(Non-Drug; Combo Route) route 6 times daily. Yes levothyroxine (SYNTHROID) 150 mcg [...] Yes atenolol (TENORMIN) 25 mg tablet Yes glucagon, Human Recombinant, (GLUCAGON EMERGENCY KIT, HUMAN,) 1 mg Recon Soln Inject 1 mL into the muscle as needed (severe hypoglycemia with unconsciousness). Patient not taking: Reported on 08/22/2019 ALLERGIES: Allergies Allergen Reactions ??? Contrast [Iodine [...] HPI. PHYSICAL EXAM: Vitals Office Visit from 08/22/2019 in Endocrinology at [facility] Weight 64.6 kg (142 lb 6.4 oz) Height 170.2 cm (5' 7) BSA (Calculated - sq m) 1.75 sq meters BMI (Calculated) 22.3 Heart Rate 66 BP 129/84 ASSESSMENT/PLAN: 1. DM type 1 - doing well with current regimen. I do not think her two bouts of pre-supper nausea are diabetes related, since those symptoms did not coincide with a low BG, and gastroparesis is unlikely since she hasn't had other suggestive symptoms (early satiety etc). I advised her to discuss further about her bouts of nausea with her PCP at her upcoming appt with him in a couple weeks, to see if she may need an endoscopy. ?? Continue Lantus dose to 14 units daily ?? Continue current carb ratio and correction factor ?? Continue metformin for now 2. Hypothyroidism - TSH was mildly elevated today despite compliance, the only potential interference may be the sulfasalazine she has been taking simultaneously with the levothyroxine. I asked her to space it by 30 min after the LT4 and recheck TSH in 6 weeks (she will do this at [facility] close to home). 3. Follow-up - 6 months, labs 1 hour prior. 25 min of this 40 min face to face visit was spent in counseling about DM mgmt. TATYANA CALLAHAN MD Blocking Machine Operator Secondconsumer loan underwriter Section of Endocrinology [facility] documented in this encounter Plan of Treatment Upcoming Encounters Date Type Specialty Care Team Description 10/15/2022 Office Visit Hematology and Oncology Aldo Gaming MD [facility] HEMATOLOGY/[facility] DEPT. 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
--- OUTSIDE RECORDS SUMMARY | 2022-09-09 09:40 | XMS_ITS | Encounter Summary ---
:1955 Author Organization [facility] [place] [address] Care Team Providers Name Role Phone Bang Heath MD Primary Care Provider Reason for Visit Reason Comments Medication Refill Encounter Details Date Type Department Care Team Description 06/20/2019 Refill Endocrinology at [facility] Tatyana Lea, Type 1 diabetes [facility] Rubin velazquez [place] [address] [facility] complication [phone] END[address] [place] [id number] (Wo rk) Social History Tobacco Use Types [...] Visit Hematology and Oncology Aldo Gaming MD [facility] ER HEMATOLOGY/[facility] DEPT. [place], [place] [address] (Wo rk) documented as of this encounter Visit Diagnoses Diagnosis Type 1 diabetes mellitus without complic ation Type I (juvenile type) diabetes mellitus without mention of complication, not stated as uncontrolled documented in this encounter Care Teams Global Compensation Director Relationship Specialty Start Date End Date Bang Heath MD PCP - General General Internal Medicine 01/18/19 [address] [facility] [place] [address] documented as of this encounter
--- OUTSIDE RECORDS SUMMARY | 2022-09-09 09:40 | XMS_ITS | Encounter Summary ---
:1955 Author Organization [facility] [place] [address] Care Team Providers Name Role Phone Tatyana Grande MD Primary Care Provider Reason for Visit Reason Comments Follow-up Encounter Details Date Type Department Care Team Description 10/14/2015 Office Visit Gastroenterology at [facility] Marily Guillermo Ulcerative colitis, [facility] Rubin [place] [address] [facility] [phone] C[place] [address] Social History Tobacco Use Types Packs/Day Years [...] Sign Reading Time Taken Comments Blood Pressure 140/80 10/14/2015 8:51 AM EST Pulse 73 10/14/2015 8:51 AM EST Temperature - - Respiratory Rate - - Oxygen Saturation - - Inhaled Oxygen Concentration - - Weight 84.4 kg (186 lb) 10/14/2015 8:51 AM EST Height 170.2 cm (5' 7) 10/14/2015 8:51 AM EST Body Mass Index 29.13 10/14/2015 8:51 AM EST documented in this encounter Patient Instructions Patient InstructionsLeMarily seymour MD - 10/14/2015 10:07 AM EST # Continue sulfasalazine 2 g twice per day # Check complete blood count, liver tests, kidney tests, urinalysis annually to evaluate for rare complications from IBD (PSC) and from mesalamine (interstitial nephritis, abnormal LFTs, myelosuppression). Will have them checked with Dr. Grande. # Recommend repeat colonoscopy two years from the last for surveillance for dysplasia. # Follow-up with me in the office in one year or sooner as needed. documented in this encounter Progress Notes Marily Guillermo MD - 10/14/2015 9:48 AM EST Patient Active Problem List Diagnosis [...] Biopsies negative. ?? CT scan 07/25/13 ( [facility]) : Thickening of the [...] history of UC. I last saw her for colonoscopy in May. There was very minimal disease activity in the left colon. She has occasional feelings of vague aching in the abdomen. It used to be more lower abdominal cramping. She has certain triggers - mushrooms, stress - especially driving, for example, coming here today. She had this aching for the last two days. Not associated with fod or bowel movements. There has been no change in her bowel habit. She has 1 stool each morning for formed stool typically. There has been no bleeding. Last time was maybe about two months ago - seemed more like a hemorrhoid thing. She continues 4 tabs of SSZ twice per day. She misses one dose every week. REVIEW OF SYSTEMS Notable for the gastrointestinal [...] or easy bruising or bleeding. PHYSICAL EXAMINATION: Filed Vitals: 10/14/15 0851 BP: 140/80 Pulse: 73 Wt Readings from Last 3 Encounters: 10/14/15 84.369 kg (186 lb) 09/17/14 78.835 kg (173 lb 12.8 oz) 11/08/13 73.483 kg (162 lb) GEN: Healthy-appearing in no acute distress. Appears stated age. Cooperative and answers questions appropriately. SKIN: No rashes or abnormal lesions. NECK: No adenopathy and no thyromegaly. HEENT: PERRL, EOMI, MATERIALS PLANNER/PRODUCTION PLANNER and OP clear without ulceration or lesions. COR: Regular, normal S1 and S2 without murmurs ABD: Normal active bowel sounds. Soft and non-distended. No tenderness to deep palpation in all 4 quadrants. No hepatosplenomegaly. EXT: No cyanosis, clubbing or edema. IMPRESSION AND RECOMMENDATIONS: Ms. Skelton is doing well in symptomatic remission on sulfasalazine. Suspect her abd aching is more related to stress than her IBD. Recommended continuing the SSZ at current dose. Due for surveillance colonoscopy in 2017. Will need routine labs annually with Dr. Grande. We discussed the following recommendations that were printed out for the patient: # Continue sulfasalazine 2 g twice per day # Check complete blood count, liver tests, kidney tests, urinalysis annually to evaluate for rare complications from IBD (PSC) and from mesalamine (interstitial nephritis, abnormal LFTs, myelosuppression). Will have them checked with Dr. Grande. # Recommend repeat colonoscopy two years from the last for surveillance for dysplasia. # Follow-up with me in the office in one year or sooner as needed. Chele Guillermo MD Auto Design Detailerbrand designer Section of Gastroenterology [place] [address] documented in this encounter Plan of Treatment Upcoming Encounters Date Type Specialty Care Team Description 10/15/2022 Office Visit Hematology and Oncology Aldo Gaming MD [facility] H[facility] DEPT. [place], [place] [address] (Wo rk) documented as of this encounter Visit Diagnoses Diagnosis Ulcerative colitis, without complication s documented in this encounter Care Teams Ceramic Tile Mechanic Relationship Specialty Start Date End Date Tatyana Grande MD PCP - General 09/17/14 06/07/17 [address] [place] [address] documented as of this encounter
--- OUTSIDE RECORDS SUMMARY | 2022-09-09 09:40 | XMS_ITS | Encounter Summary ---
:1955 Author Organization [facility] [place] [address] Care Team Providers Name Role Phone Shayne Lui MD Primary Care Provider [phone] Encounter Details Date Type Department Care Team Description 10/03/2018 Office Visit Gastroenterology at [facility] Marily Guillermo Left sided [facility] Rubin Cloud [place] [address] [facility] with complication [phone] CENTER GASTROENTEROLOGY [place] [address] Social History Tobacco Use Types Packs/Day Years [...] Sign Reading Time Taken Comments Blood Pressure 133/84 10/03/2018 11:05 AM EST Pulse 92 10/03/2018 11:05 AM EST Temperature - - Respiratory Rate - - Oxygen Saturation - - Inhaled Oxygen Concentration - - Weight 64.4 kg (141 lb 14.4 oz) 10/03/2018 11:05 AM EST Height 170.2 cm (5' 7) 10/03/2018 11:05 AM EST Body Mass Index 22.22 10/03/2018 11:05 AM EST documented in this encounter Patient Instructions Patient InstructionsLeMarily seymour MD - 10/03/2018 11:00 AM EST # Continue sulfasalazine 2 g (4 tabs) twice per day. # Please have blood work with next blood draw ( complete blood count, liver tests, kidney tests, andC-reactive protein). Requisition given today. # Please have fecal calprotectin stool test done. # Pending results of stool test, consider moving up colonoscopy OR, if normal, maintain current planfor next surveillance in 05/2019. # Follow-up with me at the time of colonoscopy and in the office in one year. documented in this encounter Progress Notes Marily Guillermo MD - 10/03/2018 11:00 AM EST Patient Active Problem List Diagnosis [...] year. Her last colonoscopy was in 05/2015. Since last visit, she was diagnosed with diabetes. She has been seen in endocrinology and is now on insulin. She is seeing a oil dispenser. Continues to struggle with her blood sugars. Weight seems to be stabilizing over the last 1-2 months. Typically moves her bowels once per day for formed stool. Every so often - once per week - she has alot of cramps throughout her abdomen. The cramping improves with bowel movements. Stools at those times are urgent. Stools are more loose than formed. No rectal bleeding - except two times. Thought those episodes were hemorrhoidal - painless, BRBPR. Continue on SSZ at 2 g bid. No incontinence. Just was seen in Dr. Lui's office. [...] or bleeding. PHYSICAL EXAMINATION: Most Recent Vitals: 10/03/18 1105 BP: 133/84 Pulse: 92 Wt Readings from Last 3 Encounters: 10/03/18 64.4 kg (141 lb 14.4 oz) 06/22/18 64.4 kg (142 lb) 10/15/17 74.4 kg (164 lb) Body mass index is 22.22 kg/m??. GEN: Healthy-appearing in no acute distress. Appears stated age. Cooperative and answers questions appropriately. IMPRESSION AND RECOMMENDATIONS: Ms. Skelton has a history of left-sided ulcerative colitis. It is not clear to me that she has activedisease based on her symptoms. She has completely normal bowel habits most of the time with 1-2 days/week when she has episodes of urgency and somewhat loose stools. I suspect this may be related to her abnormal blood sugars which she is struggling to control. However, we of course have to consider ulcerative colitis. I suggested that we check a fecal calprotectin as a surrogate marker for active colitis. If it is positive, we will move up her colonoscopy which is otherwise due next May for surveillance. If the calprotectin is negative, it would be reasonable to follow her for now and see if symptoms improve with better blood sugar control. If they do not, then we should probably move up the colonoscopy anyhow. She will continue her sulfasalazine. I gave her a requisition to have a complete blood count, creatinine, liver tests, and C-reactive protein with her next blood work. We discussed the following recommendations that were printed out for the patient: # Continue sulfasalazine 2 g (4 tabs) twice per day. # Please have blood work with next blood draw ( complete blood count, liver tests, kidney tests, andC-reactive protein). Requisition given today. # Please have fecal calprotectin stool test done. # Pending results of stool test, consider moving up colonoscopy OR, if normal, maintain current planfor next surveillance in 05/2019. # Follow-up with me at the time of colonoscopy and in the office in one year. 20 min of this 30 min myuf-at-bvlr visit was spent counseling the patient in the issues outlined above. Chele Guillermo MD [employer] business consultant Section of Gastroenter[place] [address] documented in this encounter Plan of Treatment Upcoming Encounters Date Type Specialty Care Team Description 10/15/2022 Office Visit Hematology and Oncology Aldo Gaming MD [facility] HEMATOLOGY/[facility] DEPT. [place], [place] [address] (Wo rk) documented as of this encounter Visit Diagnoses Diagnosis Left sided ulcerative colitis with compl ication documented in this encounter Care Teams Cyber Software Engineer Relationship Specialty Start Date End Date Shayne Lui MD PCP - General Family Medicine 06/08/17 01/17/[address] [place] [address] documented as of this encounter
--- OUTSIDE RECORDS SUMMARY | 2022-09-09 09:40 | XMS_ITS | Encounter Summary ---
:1955 Author Organization [facility] [place] [address] Care Team Providers Name Role Phone Shayne Lui MD Primary Care Provider [phone] Reason for Visit Auth/Cert Specialty Diagnoses / Procedures Referred By Contact Refer red To Contact Diagnoses Encounter for screening for malignant neoplasm of colon 2 YR SURV Procedures PRO COLONOSCOPY, DIAGNOSTIC COLONOSCOPY, DIAGNOSTIC Referral ID Status Reason Start Date Expiration Date Visits Requ ested Visits Authorized [id number] 1 1 Encounter Details Date Type Department Care Team Description 06/08/2017 Hospital Encounter Gastroenterology at [facility] Marily Guillermo, [facility] [place] [address] [facility] [phone] CENTER GASTROENTEROLOGY DEPT. [place], [place] [address] Social History Tobacco Use Types [...] Sign Reading Time Taken Comments Blood Pressure 117/81 06/08/2017 12:45 PM EDT Pulse 51 06/08/2017 12:25 PM EDT Temperature - - Respiratory Rate 13 06/08/2017 12:25 PM EDT Oxygen Saturation 95% 06/08/2017 1:00 PM EDT Inhaled Oxygen Concentration - - Weight - - Height - - Body Mass Index - - documented in this encounter Discharge Instructions Discharge InstructionsLety Griffith RN - 06/08/2017 12:40 PM EDT [facility] Colonoscopy: What to Expect at Home Your [...] more? Visit our health information library at [email or web address] You can also view health information on [employer], your personal patient account. Log in or sign up today. Enter E264 in the search box to learn more about Colonoscopy: What to Expect at Home. ?? [id number] [employer]. Care instructions adapted under license by [facility]. This care instruction is for use with your licensed healthcare professional. If you have questionsabout a medical condition or this instruction, always ask your healthcare professional. [employer] disclaims any warranty or liability for your use of this information. Content Version: 11.0.359059; Current as of: October 18, 2015 documented [...] Hematology and Oncology Aldo Gaming MD [facility] ER HEMATOLOGY/[facility] DEPT. [place] [id number] (Wo rk) documented as of this encounter [...] 06/08/2017 PM EDT 12:23 PM EDT Narrative [facility] - 06/08/2017 12:23 PM EDT Specimen requisition ordered. ??Separate Pathology report to follow L Pedro Luis Guillermo MD PATHOLOGY/CYTOLOGY ORDERABLE S Performing Organization Address City/State/[place] [address] Specimen to Pathology (surgical or derm) (06/08/2017 12:23 PM EDT) Specimen Anatomical Collection Method Collection Time Receive d Time (Source) Location / / Volume Laterality AP Specimen 06/08/2017 12:23 06/08/2017 PM EDT 12:23 PM EDT Narrative [facility] - 06/08/2017 12:23 PM EDT Specimen requisition ordered. ??Separate Pathology report to follow L Pedro Luis Guillermo MD PATHOLOGY/CYTOLOGY ORDERABLE S Performing Organization Address City/State/[place] [address] Specimen to Pathology (surgical or derm) (06/08/2017 12:23 PM EDT) Specimen Anatomical Collection Method Collection Time Receive d Time (Source) Location / / Volume Laterality AP Specimen 06/08/2017 12:23 06/08/2017 PM EDT 12:23 PM EDT Narrative [facility] - 06/08/2017 12:23 PM EDT Specimen requisition ordered. ??Separate Pathology report to follow L Pedro Luis Guillermo MD PATHOLOGY/CYTOLOGY ORDERABLE S Performing Organization Address City/[facility]/ZIP [place] [address] Specimen to Pathology (surgical or derm) (06/08/2017 12:23 PM EDT) Specimen Anatomical Collection Method Collection Time Receive d Time (Source) Location / / Volume Laterality AP Specimen 06/08/2017 12:23 06/08/2017 PM EDT 12:23 PM EDT [facility] 12:23 PM EDT Specimen requisition ordered. ??Separate Pathology report to follow L Pedro Luis Guillermo MD PATHOLOGY/CYTOLOGY ORDERABLE S Performing Organization Address City/[facility]/ZIP [place] [address] Surgical Pathology Report (06/08/2017 12:22 PM EDT) Component Value Ref Test Analysis Performed At [facility] Range Method Time Signature Surgical [id number] ?Location: 4T; EA10; A [facility] Report The signing pathologist has (i) [...] Organization Address City/State/ZIP [place] [address] COLONOSCOPY (06/08/2017 11:46 AM EDT) [facility] Method Time Signature COLONOSCOPY [facility] Endoscopy Procedure Date: 06/08/2017 11:46 AM ? Patient Name: Tatyana Skelton ? Date of : 1955 ? Age: 62 ? Order #: [id number] ? Instrument Name: [facility] [id number] ? Procedure: ? Colonoscopy Indications: ? High risk colon cancer surveillance : ? Ulcerative colitis Patient Profile: ? This is a 62 year old female. This ? patient has ulcerative pancol itis, is ? taking mesalamine and is asym ptomatic. Providers: ? L. Pedro Luis Guillermo MD, Ricarda Putnam , ? RN, [...] was evaluat ed using ? the BBPS ([place] Bowel Prepar ation ? Scale) with scores [...] Action Action Date Dose Rate Site lactated Ringers infusion New Bag 06/08/2017 11:15 AM EDT 50 mL/hr 50 mL/hr 50 mL/hr, Intravenous, CONTINUOUS, Starting on 06/08/17 at 1115, Until 06/08/17 at 1317, Endoscopy (Day of Procedure) documented in this encounter Active and Recently Administered Medications Times are shown in EDT. Continuous Medication Order 06/06/2017 06/07/2017 06/08/2017 lactated Ringers infusion (CANCELED) 1115 (New Bag - Provider: Cordelia Claudio, ANDREW) 50 mL/hr, at 50 mL/hr, Intravenous, CONT INUOUS, Starting Wed06/08/17 at 1115, Until Wed06/08/17 at 1317, Endo (Day of Procedure) PRN Medication Order 06/06/2017 06/07/2017 06/08/2017 fentaNYL 50 mcg/mL multi-dose injection (CANCELED) 1152 (Given - Provider: Ricarda Putnam RN)1155 (Given - Provider: Ricarda Putnam RN)1158 (Given - Provider: Ricarda Putnam, ANDREW)1201 (Given - Provider: Ricarda Putnam RN) ONCE PRN, Starting Wed06/08/17 at 1152, Until Wed06/08/17 at 1535, Intra- Operative (Intra-Procedure), Routine midazolam (PF) (VERSED) 1 mg/mL multi-dose injection (CANCELED) 1152 (Given - Provider: Ricarda Putnam RN)1155 (Given - Provider: Ricarda Putnam, ANDREW)1158 (Given - Provider: Ricarda Putnam, ANDREW)1201 (Given - Provider: Ricarda Putnam, ANDREW) ONCE PRN, Starting Wed06/08/17 at 1152, Until Wed06/08/17 at 1535, Intra- Operative (Intra-Procedure), Routine documented in this encounter Care Teams Radio Dispatcher Relationship Specialty Start Date End Date Shayne Lui MD PCP - General Family Medicine 06/08/17 01/17/[address] [place] [address] [address] [place] [address] documented as of this encounter
--- OUTSIDE RECORDS SUMMARY | 2022-09-09 09:40 | XMS_ITS | Encounter Summary ---
:1955 Author Organization [facility] [place] [address] Care Team Providers Name Role Phone Bang Heath MD Primary Care Provider Reason for Visit Reason Comments Medication Refill Encounter Details Date Type Department Care Team Description 12/16/2019 Refill Endocrinology at [facility] Tatyana Lea, Type 1 diabetes [facility] Rubin [place]quez [place] [address] [facility] complication [phone] ENDOCRINOLOGY DE PT [place] [phone] (Wo rk) Social History Tobacco Use Types [...] Visit Hematology and Oncology Aldo Gaming MD [facility] ER HEMATOLOGY/[facility] DEPT. [place], [place] [address] (Wo rk) documented as of this encounter Visit Diagnoses Diagnosis Type 1 diabetes mellitus without complic ation Type I (juvenile type) diabetes mellitus without mention of complication, not stated as uncontrolled documented in this encounter Care Teams Handle Machine Operator Relationship Specialty Start Date End Date Bang Heath MD PCP - General General Internal Medicine 01/18/19 1 [address] [facility] [address] [facility] [address] [place] [address] documented as of this encounter
--- OUTSIDE RECORDS SUMMARY | 2022-09-09 09:40 | XMS_ITS | Encounter Summary ---
:1955 [place] [address] Care Team Providers Name Role Phone Bang Heath MD Primary Care Provider Encounter Details Date Type Department Care Team Description 04/03/2020 Telephone Endocrinology at [facility] C Suzanne Downey, [place] [address] Social History Tobacco Use Types Packs/Day [...] Miscellaneous Notes Telephone Encounter - Suzanne Downey [facility] - 04/03/2020 11:44 AM EDT [employer] Instructor Pre-Telemedicine Phone Note [x] Patient not reached [] Patient reached and the following information was reviewed/obtained per protocol: [] Confirmed patient name and date of [] Confirmed telemedicine kristin (Vidyo and Virtual Visit) is downloaded and functioning [] Confirmed location of patient - TeleVisit is taking place in [] [place] [] [place] [] If not on myDH, working on signing up for myD [] Confirmed has completed any pre-visit questionnaires [] If has not received required pre-visit questionnaires, send via myD [] Reviewed patient medications [] Documented self-reported vitals: [] Weight: [] Height [] pulse recorded: [x] Other information or concerns LM asking pt to call me back documented in this encounter Plan of Treatment Upcoming Encounters Date Type Specialty Care Team Description 10/15/2022 Office Visit Hematology and Oncology Aldo Gaming MD [facility] ER HEMATOLOGY/[facility] DEPT. [place], [place] [address] (Wo rk) documented as of this encounter Visit Diagnoses Not on filedocumented in this encounter Care Teams Negative Cleaner Relationship Specialty Start Date End Date Bang Heath MD PCP - General General Internal Medicine 01/18/[address] [place] [address] documented as of this encounter
--- OUTSIDE RECORDS SUMMARY | 2022-09-09 09:40 | XMS_ITS | Encounter Summary ---
:1955 Author Organization [facility] [place] [address] Care Team Providers Name Role Phone Bang Heath MD Primary Care Provider Encounter Details Date Type Department Care Team Description 03/30/2019 Telephone Gastroenterology at [facility] [place] [address] Social History Tobacco Use Types Packs/Day [...] this encounter Miscellaneous Notes Telephone Encounter - Betty Paulson - 03/30/2019 10:30 AM EDT Tatyana Skelton [id number] Diagnosis: Screening 1. Have you ever had a colonoscopy before? [x] YES [] NO If Yes, Date of Last [place]:___06/08/2017 If yes, did you have any problems with the procedure? [] YES [x] NO Explain: What type of sedation was used: IV 2. Do you take any Blood Thinners? [] YES [x] NO If Yes, type: 3. Do you have a Pacemaker or Defibrillator device? [] YES [x] NO If Yes send [employer] message to [employer] DEVICE CHECK 4. Are you a diabetic? [x] YES [] NO If yes, controlled by meds or diet? _meds 5. Do you have any Allergies to Eggs, Latex or Medications? [x] YES [] NO If Yes, what:__listed 6. Do you take any Oral Iron Supplements (Including multi vitamins)? [x] YES [] NO 7. Do you have a history of three or more abdominal surgeries? [] YES [x] NO 8. Have you had a problem with sedation or anesthesia? [] YES [x] NO 9. Do you have a c-pap machine or oxygen tank? [] C-PAP [] Oxygen [x] NO 10. Do you take prescription narcotic pain medications? [] YES [x] NO 11. You must have a responsible constitution party stay at the facility during your procedure and drive you home? [x] YES 12. Is there any other information you would like to give us to aid in scheduling? Height: ___5'7 Weight: 145lbs BMI: _22.7___ Age:64 y.o. documented in this encounter Plan of Treatment Upcoming Encounters Date Type Specialty Care Team Description 10/15/2022 Office Visit Hematology and Oncology Aldo Gaming MD [facility] ER HEMATOLOGY/ONCOL OGY DEPT. [place], [place] [address] (Wo rk) documented as of this encounter Visit Diagnoses Not on filedocumented in this encounter Care Teams Extrusion Press Operator Relationship Specialty Start Date End Date Bang Heath MD PCP - General General Internal Medicine 01/18/19 [address] [place] [address] documented as of this encounter
--- OUTSIDE RECORDS SUMMARY | 2022-09-09 09:40 | XMS_ITS | Encounter Summary ---
:1955 [place] [address] Care Team Providers Name Role Phone Shayne Lui MD Primary Care Provider [phone] Encounter Details Date Type Department Care Team Description 03/28/2018 Ancillary Procedure Radiology Library at [facility] MD [facility] [address] [address] [place], [place] [phone] (Wo rk) [phone] Social History Tobacco Use Types Packs/Day Years [...] Aldo Gaming MD [facility] HEMATOLOGY/[facility] DEPT. [place], [place] [address] (Wo rk) documented as of this encounter Procedures Procedure Name Priority Date/Time Associated Diagnosis Comme nts FILM LIBRARY Routine 03/28/2018 12:00 AM Results for this STORAGE ONLY MAMMO EDT procedure are in the results section. documented in this encounter Results Film Library- Storage Only Mammo (03/28/2018 12:00 AM EDT) Specimen (Source) Anatomical Location Collection Method / Collectio n Time Received Time / Laterality Volume Narrative ARMAND - 01/01/2021 4:03 PM EST This exam is auto-finalizing. It's purpo se is for storage only. Bang Heath MD IMG FILM LIBRARY ORDERABLES Performing Organization Address City/State/ZIP Code Phon e Number [place], [place] documented in this encounter Visit Diagnoses Not on filedocumented in this encounter Care Teams Core Fitter Relationship Specialty Start Date End Date Shayne Lui MD PCP - General Family Medicine 06/08/17 01/17/[address] [place] [address] documented as of this encounter
--- OUTSIDE RECORDS SUMMARY | 2022-09-09 09:40 | XMS_ITS | Encounter Summary ---
:1955 [place] [address] Care Team Providers Name Role Phone Bang Heath MD Primary Care Provider Encounter Details Date Type Department Care Team Description 09/11/2019 Ancillary Procedure Radiology Library at [facility], Kamari yoder [facility] [place] [address] CARDIOLOGY DEPT [phone] [place], [place] [address] (Wo rk) Social History Tobacco Use Types [...] Oncology Aldo Gaming MD [facility] HEMATOLOGY/[facility] DEPT. [place], [place] [address] (Wo rk) documented as of this encounter Procedures Procedure Name Priority Date/Time Associated Diagnosis Comme nts FILM LIBRARY Routine 09/11/2019 12:00 AM Results for this STORAGE ONLY EDT procedure are i n NUCLEAR MEDICINE the results section. documented in this encounter Results Film Library- Storage Only nuclear medicine (09/11/2019 12:00 AM EDT) Specimen (Source) Anatomical Location Collection Method / Collectio n Time Received Time / Laterality Volume Narrative ARMAND - 09/15/2019 11:43 AM EDT This exam is auto-finalizing. It's purpo se is for storage only. Willard Travis MD [facility] FILM LIBRARY ORDERABLES Performing Organization Address City/State/ZIP Code Phon e Number [place], [place] documented in this encounter Visit Diagnoses Not on filedocumented in this encounter Care Teams Director Of Medical Education Relationship Specialty Start Date End Date Bang Heath MD PCP - General General Internal Medicine 01/18/[address] [place] [address] documented as of this encounter
--- OUTSIDE RECORDS SUMMARY | 2022-09-09 09:41 | XMS_ITS | Encounter Summary ---
:1955 Author Organization [facility] [place] [address] Care Team Providers Name Role Phone Tatyana Barr MD Primary Care Provider Encounter Details Date Type Department Care Team Description 11/08/2013 Hospital Encounter Gastroenterology at [facility] Marily Guillermo MD [facility] DR GASTROENTER[place] [address] [facility] Dequan King MD [facility] DR GASTROENTER[place] [address] [place] [address] Social History Tobacco Use Types Packs/Day Years Used Date Never Smoker Transportation Needs Answer Date Recorded In the [...] Sign Reading Time Taken Comments Blood Pressure 117/71 11/08/2013 5:06 PM EST Pulse 63 11/08/2013 5:06 PM EST Temperature 36.4 ??C (97.5 ??F) 11/08/2013 3:35 PM EST Respiratory Rate 16 11/08/2013 5:06 PM EST Oxygen Saturation 98% 11/08/2013 5:06 PM EST Inhaled Oxygen Concentration - - Weight 73.5 kg (162 lb) 11/08/2013 3:35 PM EST Height 170.2 cm (5' 7) 11/08/2013 3:35 PM EST Body Mass Index 25.37 11/08/2013 3:35 PM EST documented in this encounter Discharge Instructions Discharge InstructionsMelissa Barbosa RN - 11/08/2013 5:10 PM EST Colonoscopy What to expect after the procedure [...] you need to be checked. [facility] [phone] 8a-5p Same Day Endo [phone] 7a-8p Otherwise contact [phone] and ask to speak to the commercial cleaner concrete sculptor Follow up care is a chowdhury part of your treatment and safety. Be sure to make and go to all appointments, and call your doctor if you are having problems. Discharge instructions reviewed with patient who expresses understanding Patient InstructionsDequan Vazquez MD - 11/08/2013 5:02 PM EST Please see Recommendations in the Provation procedure report which is documented in the procedural note in E-DH. documented in this encounter Medications at Time of Discharge Medication Sig Dispensed Refills Start Date End Date atenolol (TENORMIN) 25 mg 0 03/07/2010 tablet sulfaSALAzine (AZULFIDINE) Take 4 tablets 480 tablet 3 09/1111/10/2013 500 mg tablet by mouth 2 times daily for 60 days. levothyroxine (SYNTHROID) 88 Take 150 mcg by 0 06/22/2018 mcg tablet mouth daily. CIS Free Text Med - Daily 0 03/07/2010 06/22/2018 Multivitamin CALCIUM ORAL 0 03/07/2010 09/17/2014 HYDROCHLOROTHIAZIDE ORAL 0 03/07/2010 09/17/2014 documented as of this encounter H&P Notes Dequan Vazquez MD - 11/08/2013 4:40 PM EST Gastroenterology and Hepatology Pre-Procedure History and Physical Exam Procedure: Colonoscopy: Indication: Abnormal CT scan-thickened sigmoid Patient Active Problem List Diagnosis Code ??? UC (ulcerative colitis) 556.9 ??? HTN (hypertension) 401.9 ??? Hypothyroidism 244.9 EXAM:WD WF NAD HEENT: Airway examined, oropharynx clear LUNGS: Clear to auscultation HEART: Regular rate and rhythm, normal S1, S2 ABDOMEN: Normal bowel sounds, soft, non tender, non distended, A/P Proceed with the planned endoscopic procedure. Risks and benefits of the procedure explained to the patient. Consent signed. documented in this encounter Miscellaneous Notes Miscellaneous - Provider, Scanning - 11/08/2013 11:18 PM EST OR Attestation - Dequan Vazquez MD - 11/08/2013 5:02 PM EST Attestation: Case Date: 11/08/2013 I performed this procedure without the involvement of a resident. DEQUAN VAZQUEZ MD 11/08/2013 Miscellaneous - Provider, Scanning - 11/08/2013 3:50 PM EST documented in this encounter Plan of Treatment Upcoming Encounters Date Type Specialty Care Team Description 10/15/2022 Office Visit Hematology and Oncology Aldo Gaming MD [facility] HEMATOLOGY/[facility] DEPT. [place], [place] [address] (Wo rk) documented as of this encounter Procedures Procedure Name Priority Date/Time Associated Comments Diagnosis SURGICAL PATHOLOGY Routine 11/08/2013 5:04 PM Res ults for this REPORT EST procedure are i n the results section. SPECIMEN TO PATHOLOGY Routine 11/08/2013 5:04 PM Results for this EST procedure are i n the results section. COLONOSCOPY FLEXIBLE, 11/08/2013 4:39 PM UC (ulcerativ e WITH BX (WRVU 3.66) EST colitis) documented in this encounter Results Surgical Pathology Report (11/08/2013 5:04 PM EST) [facility] Method Time Signature Surgical CERNER Pathology ? [facility] Report ? Provider: ?? DEQUAN VAZQUEZ ?Pt. Name: ?? CONI KANG, TATYANA Barker ? Acc #: ?[id number] ?Pt. MRN: ?[id number] ? Col Date: ?? 11/08/20 13 ?/Sex: ?1955,(58 years),Female ? Rec Date: ?? 11/08/2013 ?LOC: ?4T ? SURGICAL PATHOLOGY ? ---Pathologic Diagnosis--- ? Sigmoid colon, biopsy: ?Colonic mucosa, negative for diagnostic abnormal ity. ? CR-0, CR-PX ? 11/09/13 ? AJE ? 11/09/13 Verified by: ? Liban Whaley MD ? Pathologist ? (Electronic Si gnature) ? The attending pathologist whose signature appears o n this report has ? reviewed all diagnostic slides and has edited the marlin ss and/or ? microscopic portion of the report in rendering the fi nal pathologic ? diagnosis. ? ---Microscopic Description--- ? Slides reviewed, microscopic description not recorded . ? ---Gross Description--- ? A - Labeled/Fixative: Sigmoid, formalin. ? Quantity/Size: Four, 0.3 x 0.2 cm. ? Tissue Description: Soft wilkerson-pink tissue. ? Sections/Processing: (T1) ??pps ? ---Clinical Information--- ? Specimen Submitted: ? A - Sigmoid ? Clinical History: ? Ulcerative colitis ? Clinical Diagnosis: ? Same Specimen (Source) Anatomical Collection Method Collection Time Re ceived Time Location / / Volume Laterality 11/08/2013 5:04 PM EST Dequan Vazquez MD PATHOLOGY/CYTOLOGY ORDERABLE S Performing Organization Address City/[facility]/ZIP Code Phon e Number [address] [place] Specimen to Pathology (surgical or derm) (11/08/2013 5:04 PM EST) Specimen Anatomical Collection Method Collection Time Receive d Time (Source) Location / / Volume Laterality AP Specimen 11/08/2013 5:04 PM 3 5:04 EST PM EST Narrative CERNER MILLENNIUM - 11/08/2013 5:[address] Specimen requisition ordered. ??Separate Pathology report to follow Dequan Vazquez MD PATHOLOGY/CYTOLOGY ORDERABLE S Performing Organization Address City/[facility] Code Phon e Number [address] [facility] [place] documented in this encounter Visit Diagnoses Not on filedocumented in this encounter Active and Recently Administered Medications Times are shown in EST. PRN Medication Order 11/06/2013 11/07/2013 11/08/2013 fentaNYL 50mcg/mL injection (CANCELED) 1642 (Given - Provider: Machelle Enciso, ANDREW)164 (Given - Provider: Machelle Enciso, RN)165 (Given - Provider: Machelle Enciso, RN) ONCE PRN, Starting Wed11/08/13 at 1643, Until Wed11/08/13 at 2053, Pain, Intra-Operative (Intra-Procedure), Routine lidocaine (XYLOCAINE) 2 % jelly (CANCELED) 164 (Given - Provider: Dequan Vazquez MD) ONCE PRN, Pain, Starting Wed11/08/13 at 1647, For 1 dose, Intra-Operative (Intra-Procedure) midazolam (VERSED) injection (CANCELED) 1643 (Given - Provider: Machelle Enciso, ANDREW)1646 (Given - Provider: Machelle Enciso, ANDREW)165 (Given - Provider: Machelle Enciso, RN) ONCE PRN, Starting Wed11/08/13 at 1643, Until Wed11/08/13 at 2053, Sleep, Intra-Operative (Intra-Procedure), Routine documented in this encounter Care Teams Machine Finisher Relationship Specialty Start Date End Date Tatyana Barr MD PCP - General 12/12/12 09/16/14 [address] [place] [address] documented as of this encounter
--- OUTSIDE RECORDS SUMMARY | 2022-09-09 09:41 | XMS_ITS | Encounter Summary ---
:1955 Author Organization [facility] [place] [address] Care Team Providers Name Role Phone Tatyana Barr MD Primary Care Provider Encounter Details Date Type Department Care Team Description 12/15/2012 Hospital Encounter [place] [facility] [place]ily Cano, [facility] [place] [address] [address] [facility] [phone] CENTER GASTROENTEROLOGY DEPT. [place], [place] [address] Social History Tobacco Use Types [...] Sign Reading Time Taken Comments Blood Pressure 112/67 12/15/2012 10:05 AM EST Pulse 68 12/15/2012 10:05 AM EST Temperature 36.5 ??C (97.7 ??F) 12/15/2012 9:10 AM EST Respiratory Rate 16 12/15/2012 10:05 AM EST Oxygen Saturation 96% 12/15/2012 10:05 AM EST Inhaled Oxygen Concentration - - Weight - - Height - - Body Mass Index - - documented in this encounter Discharge Instructions Discharge InstructionsPorfirio Fink RN - 12/15/2012 10:06 AM EST You may have received medication before and/or during your procedure which effects judgement and reaction time. Do not drive, operate machinery, drink alcoholic beverages, or make important decisions for 24 hours. Be careful on stairs, as you may be unsteady on your feet. You may eat a regular diet as tolerated. Do not smoke if you are alone. IV site -- slight redness or tenderness is normal. You may use a warm compress. If tenderness and redness increases or foul drainage occurs please contact your M.D. Please call [phone] before 5 pm with problems, questions or concerns. After 5pm call [phone] and ask to speak with the vacuum truck driver supervisor extrusion. Discharge instructions reviewed with patientwho expresses understanding. AttachmentsThe following attachments cannot be sent through Care Everywhere. COLONOSCOPY: WHAT TO EXPECT AT HOME (PANAMANIAN)documented in this encounter Medications at Time of Discharge Medication Sig Dispensed Refills Start Date End Date atenolol (TENORMIN) 25 mg 0 03/07/2010 tablet levothyroxine (SYNTHROID) 88 Take 150 mcg by 0 06/22/2018 mcg tablet mouth daily. CIS Free Text Med - Daily 0 03/07/2010 06/22/2018 Multivitamin sulfaSALAzine (AZULFIDINE) 500 2500mg, PO, 0 07/201009/11/2013 mg tablet Once daily CALCIUM ORAL 0 03/07/2010 09/17/2014 rizatriptan (MAXALT-WINDLACE MACHINE OPERATOR) 10 mg 10MG = 1 0 03/0709/11/2013 disintegrating tablet Tablet(s), PO, PRN HYDROCHLOROTHIAZIDE ORAL 0 03/07/2010 09/17/2014 documented as of this encounter H&P Notes Marily Cano MD - 12/15/2012 8:57 AM EST Gastroenterology and Hepatology Pre-Procedure History and Physical Exam Procedure: Colonoscopy: Indication: UC surveillance Longstanding UC well controlled. On SSZ 2.5 g per day. EXAM: HEENT: Airway examined, oropharynx clear LUNGS: Clear to auscultation HEART: Regular rate and rhythm, normal S1, S2 ABDOMEN: Normal bowel sounds, soft, non tender, non distended, A/P Proceed with the planned endoscopic procedure. Risks and benefits of the procedure explained to the patient. Consent signed. documented in this encounter Miscellaneous Notes Miscellaneous - Provider, Scanning - 12/15/2012 11:03 PM EST Miscellaneous - Provider, Scanning - 12/15/2012 11:12 AM EST Op Note - Marily Cano MD - 12/15/2012 10:00 AM EST [facility] Operative Note Patient Name: Tatyana Skelton : [id number] MR#: [id number] Case Date: 12/15/2012 Surgeon: Surgeon(s) and Role: * Marily Cano MD - Primary Preoperative diagnosis: 2 YR FU COLO PER IDX DUE 03/10 Postoperative diagnosis: * No post-op diagnosis entered * Procedure(s): COLONOSCOPY FLEXIBLE, WITH BX Please see the Provation procedure report in the Procedures tab in eDH. documented in this encounter Plan of Treatment Upcoming Encounters Date Type Specialty Care Team Description 10/15/2022 Office Visit Hematology and Oncology Aldo Gaming MD [facility] HEMATOLOGY/[facility] DEPT. [place], [place] [address] (Wo rk) documented as of this encounter Procedures Procedure Name Priority Date/Time Associated Comments Diagnosis SURGICAL PATHOLOGY Routine 12/15/2012 11:52 Resul ts for this REPORT AM EST procedure are i n the results section. SPECIMEN TO PATHOLOGY Routine 12/15/2012 10:01 Re sults for this AM EST procedure are i n the results section. SPECIMEN TO PATHOLOGY Routine 12/15/2012 10:01 Re sults for this AM EST procedure are i n the results section. SPECIMEN TO PATHOLOGY Routine 12/15/2012 10:01 Re sults for this AM EST procedure are i n the results section. SPECIMEN TO PATHOLOGY Routine 12/15/2012 10:01 Re sults for this AM EST procedure are i n the results section. COLONOSCOPY FLEXIBLE, 12/15/2012 9:07 AM 2 YR FU COLO PER WITH BX (WRVU 3.66) EST IDX DUE 03/10 COLONOSCOPY Routine 12/15/2012 8:45 AM Results f or this EST procedure are i n the results section. documented in this encounter Results Surgical Pathology Report (12/15/2012 11:52 AM EST) [facility] Method Time Signature Surgical [facility] Pathology ? [facility] Report ? Provider: ?? Marily CANO ?Pt. Name: ?? TATYANA WHITTEN ? Acc #: ?[id number] ?Pt. MRN: ?[id number] ? Col Date: ?? 3 ? /Sex: ?1955,(57 years),Female ? Rec Date: ?? 12/15/2012 ? LOC: ?4T ? SURGICAL PATHOLOGY ? ---Pathologic Diagnosis--- ? A - Right colon, biopsy: ? Colonic mucosa, negative for diagnostic abnorma lity. ? B - Transverse colon, biopsy: ? Colonic mucosa, negative for diagnostic abnorma lity. ? C - Descending colon, biopsy: ? Colonic mucosa, negative for diagnostic abnorma lity. ? D - Rectosigmoid colon, biopsy: ? Patchy mildly active chronic colitis, negative for dysplasia. ? Multiple deeper levels examined. ? CR-0, CR-PX ? 12/16/12 ? VMS ? 12/18/12 Verified by: ? Liban Whaley MD ? [...] ? ---Gross Description--- ? A - Labeled/Fixative: Mucosal biopsies - right colon, formalin. ? Qty/Size/Weight: ?Six, averaging 0.3 x 0.2 x 0 .2 cm. ? Tissue Description: ?? Soft, wilkerson tissues. ? Sections/Processing: ??(T2) ? B - Labeled/Fixative: Mucosal biopsies - transverse, formalin. ? Qty/Size/Weight: ?Six, ranging from 0.2 x 0.1 cm to ? 0.4 x 0.2 x 0.2 cm in greatest dimension. ? Tissue Description: ?? Soft, wilkerson tissues. ? Sections/Processing: ??(T2) ? C - Labeled/Fixative: Mucosal biopsies - descending colon, formalin. ? Qty/Size/Weight: ?Multiple, averaging 322 cm. ? [facility] ? Provider: ?? Marily CANO ?Pt. Name: ?? MARIANN R, TATYANA Barker ? Acc #: ?[id number] ?Pt. MRN: ?[id number] ? Col Date: ?? 3 ? /Sex: ?1955,(57 years),Female ? Rec Date: ?? 12/15/2012 ? LOC: ?4T ? SURGICAL PATHOLOGY ? Tissue Description: ?? Soft, wilkerson tissues. ? Sections/Processing: ??(T2) ? D - Labeled/Fixative: Mucosal biopsies - rectosigmoid , formalin. ? Qty/Size/Weight: ?Six, ran ging from 0.2 cm to 0.3 x 0.2 x 0.1 cm ? in greatest dimensio n. ? Tissue Description: ?? Soft, wilkerson-pink tissues. ? Sections/Processing: ??(T2) ??vms/PPS ? ---Clinical Information--- ? Specimen Submitted: ? A - Mucosal biopsies - R colon ? B - Mucosal biopsies - transverse colon ? C - Mucosal biopsies - descending colon ? D - Mucosal biopsies - rectosigmoid ? Clinical History/Diagnosis: ? 57-year-old with long-standing UC here fo r surveillance for dysplasia. Specimen (Source) Anatomical Collection Method Collection Time Re ceived Time Location / / Volume Laterality 12/15/2012 11:52 AM EST Marily Cano MD PATHOLOGY/CYTOLOGY ORDERABLE S Performing Organization Address City/State/ZIP Code Phon e Number [place] [phone] [facility] Specimen to Pathology (surgical or derm) (12/15/2012 10:01 AM EST) Specimen Anatomical Collection Method Collection Time Receive d Time (Source) Location / / Volume Laterality AP Specimen 12/15/2012 10:01 12/15/2012 AM EST 10:01 AM EST Narrative CERNER MILLENNIUM - 12/15/2012 10:01 AM EST Specimen requisition ordered. ??Separate Pathology report to follow L Pedro Luis Cano MD PATHOLOGY/CYTOLOGY ORDERABLE S Performing Organization Address City/[facility]/ZIP [place] [address] CERNER MILLENNIUM Specimen to Pathology (surgical or derm) (12/15/2012 10:01 AM EST) Specimen Anatomical Collection Method Collection Time Receive d Time (Source) Location / / Volume Laterality AP Specimen 12/15/2012 10:01 12/15/2012 AM EST 10:01 AM EST Narrative CERNER MILLENNIUM - 12/15/2012 10:01 AM EST Specimen requisition ordered. ??Separate Pathology report to follow L Pedro Luis Cano MD PATHOLOGY/CYTOLOGY ORDERABLE S Performing Organization Address City/[facility]/ZIP Code Phon e Number [address] CERNER MILLENNIUM Specimen to Pathology (surgical or derm) (12/15/2012 10:01 AM EST) Specimen Anatomical Collection Method Collection Time Receive d Time (Source) Location / / Volume Laterality AP Specimen 12/15/2012 10:01 12/15/2012 AM EST 10:01 AM EST Narrative CERNER MILLENNIUM - 12/15/2012 10:01 AM EST Specimen requisition ordered. ??Separate Pathology report to follow L Pedro Luis Cano MD PATHOLOGY/CYTOLOGY ORDERABLE S Performing Organization Address City/[facility]/ZIP [place] [address] CERNER MILLENNIUM Specimen to Pathology (surgical or derm) (12/15/2012 10:01 AM EST) Specimen Anatomical Collection Method Collection Time Receive d Time (Source) Location / / Volume Laterality AP Specimen 12/15/2012 10:01 12/15/2012 AM EST 10:01 AM EST Narrative CERNER MILLENNIUM - 12/15/2012 10:01 AM EST Specimen requisition ordered. ??Separate Pathology report to follow L Pedro Luis Cano MD PATHOLOGY/CYTOLOGY ORDERABLE S Performing Organization Address City/State/ZIP [place] [address] [facility] (12/15/2012 8:45 AM EST) [facility] Method Time Signature COLONOSCOPY [facility] Endoscopy Patient Name: Tatyana Skelton ? Procedure Date: 12/15/2012 8:45 AM ? [facility]: [id number] ? Date of : 1955 ? Age: 57 ? Order #: [id number] ? Procedure: ? Colonoscopy Indications: ? High risk colon cancer surveillance : ? Ulcerative pancolitis of 8+ y ears ? duration Providers: ? Uli Cano MD, Kameron jaime, ? RN, Gasper Mccarthy, Ironmolder Referring MD: ?Tatyana Barr MD Medicines: ? Midazolam 4 mg IV, Fentanyl 250 ? micrograms IV Complications: ? No immediate [...] f the ? bowel preparation was good. ? Findings: ? External and internal hemorrhoids were found during ? retroflexion and during perianal exam and were ? medium-sized. Multiple small-mouthed diverticula were ? found in the sigmoid colon. There was mucosal patchy ? erythema within the sigmoid colon that was more ? typical of mycosis associated with diverticular ? disease than with ulcerative colitis. There were no ? signs of active ulcerative colitis. Eight biopsies ? were taken from each of four segments of the colon ? for surveillance (R colon, transverse, descending, ? and rectosigmoid). The terminal ileum appeared normal . ? Impression: ?- No clear signs of active colitis . ? Surveillance biopsies taken. ? - External and internal hemor rhoids. ? - Diverticulosis in the sigmo id colon ? with associated sigmoid eryth sinan. ? - The examined portion of the ileum ? was normal. Recommendation: ?- Await pathology results. ? - Continue sulfasalazine. ? Uli Cano MD 12/15/2012 10:12 AM Number of Addenda: 0 Note Initiated On: 12/15/2012 8:45 AM Specimen (Source) Anatomical Collection Method Collection Time Re ceived Time Location / / Volume Laterality 12/15/2012 8:45 AM EST Tatyana Barr MD GENERAL SURGICAL ORDERABLES Performing Organization Address City/State/ZIP Code Phon e Number [employer] documented in this encounter Visit Diagnoses Not on filedocumented in this encounter Active and Recently Administered Medications Times are shown in EST. PRN Medication Order 12/13/2012 12/14/2012 12/15/2012 fentaNYL 50mcg/mL injection (CANCELED) 0913 (Given - Provider: Kameron Jackson RN)0916 (Given - Provider: Kameron Jackson RN)0920 (Given - Provider: Kameron Jackson RN)0932 (Given - Provider: Kameron Jackson RN)0951 (Given - Provider: Kameron Jackson RN) ONCE PRN, Starting Kacy 12/15/12 at 0916, Until Kacy 12/15/12 at 1454, Pain, Intra- Operative (Intra-Procedure), Routine midazolam (VERSED) injection (CANCELED) 0913 (Given - Provider: Kameron Jackson RN)0916 (Given - Provider: Kameron Jackson RN)0920 (Given - Provider: Kameron Jackson RN)0932 (Given - Provider: Kameron Jackson RN) ONCE PRN, Starting Kacy 12/15/12 at 0916, Until Kacy 12/15/12 at 1454, Sleep, Intra- Operative (Intra-Procedure), Routine documented in this encounter Care Teams Emergency Doctor Relationship Specialty Start Date End Date Tatyana Barr MD PCP - General 12/12/12 09/16/14 [address] [place] [address] documented as of this encounter
--- OUTSIDE RECORDS SUMMARY | 2022-09-09 09:41 | XMS_ITS | Encounter Summary ---
:1955 Author Organization [facility] [place] [address] Care Team Providers Name Role Phone Tatyana Barr MD Primary Care Provider Reason for Visit Reason Comments GI Problem Encounter Details Date Type Department Care Team Description 09/11/2013 Office Visit Gastroenterology at [facility] Carolin Will UC ([facility] D marcus [facility] colitis) ([place] [address] [facility] ) [phone] [facility] [place] [address] Social History Tobacco Use Types Packs/Day Years [...] Sign Reading Time Taken Comments Blood Pressure 143/79 09/11/2013 9:03 AM EDT Pulse 61 09/11/2013 9:03 AM EDT Temperature - - Respiratory Rate - - Oxygen Saturation - - Inhaled Oxygen Concentration - - Weight 78.9 kg (174 lb) 09/11/2013 9:03 AM EDT Height 170.2 cm (5' 7) 09/11/2013 9:03 AM EDT Body Mass Index 27.25 09/11/2013 9:03 AM EDT documented in this encounter Progress Notes MariereiCarolin irvin, BUSINESS SYSTEM CONSULTANT - 09/11/2013 9:22 AM EDT Detailed IBD History: - UC- dx 1984 - Meds tried: Prednisone remotely in the past x2 with flare up , last use about 22 years ago. Sulfasalazine 2500 mg daily. - Recent colo- 11/2012 colonoscopy(Dr. Guillermo): No clear signs of active colitis. Surveillance biopsiestaken.- External and internal hemorrhoids.- Diverticulosis in the sigmoid colon with associated sigmoid erythema.- The examined portion of the ileum was normal. ---Pathologic Diagnosis--- A - Right colon, biopsy: Colonic mucosa, negative for diagnostic abnormality. B - Transverse colon, biopsy: Colonic mucosa, negative for diagnostic abnormality. C - Descending colon, biopsy: Colonic mucosa, negative for diagnostic abnormality. D - Rectosigmoid colon, biopsy:Patchy mildly active chronic colitis, negative for dysplasia. Multiple deeper levels examined. - 07/25/13 CT scan abd/pelvis( [facility]) : Thickening of the wall of the mid sigmoid colon with pericolonic infiltration and reactive adenopathy. Trace amount of pelvic and abdominalfree fluid. ..... HPI Patient with h/o UC- dx 1983 Meds tried: Prednisone remotely in the past x2 with flare up , last use about 22 years ago. Sulfasalazine 2500 mg daily. She had seen Dr. Francis in the past . She has done well and with occasional flare up about once a year, but mild and goes away on its own. In early June, she started having sx's that lasted longer and with more crampy lower abdominal pain. No bleeding. Passing small amount of stool each time 4x/day, she has sensation of incomplete evacuation, +tenesmus. No nocturnal bm but gets crampy pain. She had seen her PCP and had a CT scan abd/pelvis, 07/25/13: Thickening of the wall of the mid sigmoid colon with pericolonic infiltration and reactive adenopathy. Trace amount of pelvic and abdominalfree fluid. ..... She had stopped eating raw vegetables and her sx's cleared up after 10 days. For the past 2 months, doing well. Back to her normal baseline. BM once a day of formed stool, no bleeding, No tenesmus. No crampy pain. No n/v, No f/c. Current meds for UC: sulfasalazine 5 pills/day.+ folic in her MVI. No NSAIDS nor recent abx use prior to onset of sxs. Review of Systems Constitutional: Negative for fever, chills and appetite change. Unexpected weight change: she is actively trying to lose weight for health reasons. HENT: Negative for mouth sores. Eyes: Negative for pain and redness. Respiratory: Negative for cough and shortness of breath. Cardiovascular: Negative for chest pain. Gastrointestinal: See HPI Genitourinary: Negative for dysuria and hematuria. Musculoskeletal: Negative for arthralgias. Skin: Negative for rash. Neurological: Negative for dizziness. Hematological: Negative for adenopathy. Psychiatric/Behavioral: Negative for agitation. Past Medical History Diagnosis Date ??? UC (ulcerative colitis) 09/11/2013 ??? HTN (hypertension) ??? Hypothyroidism Past Surgical History Procedure Date ??? Colonoscopy, biopsy 12/15/2012 COLONOSCOPY FLEXIBLE, WITH BX performed by Marily Guillermo MD at [facility] ENDOSCOPY ??? Tubal ligation 1990 No family history on file. No IBD. No colon cancer no other GI malignancy. History Social History ??? Marital Status: Spouse Name: N/A Number of Children: N/A ??? Years of Education: N/A Occupational History ??? Not on file. Social History Main Topics ??? Smoking status: Never Smoker ??? Smokeless tobacco: Not on file ??? Alcohol Use: ??? Drug Use: ??? Sexually Active: Other Topics Concern ??? 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 No distress. HENT: Mouth/Throat: Oropharynx is clear and moist. No oropharyngeal exudate. Eyes: Conjunctivae normal are normal. No scleral icterus. Neck: Neck supple. Cardiovascular: Normal rate, regular rhythm and normal heart sounds. Pulmonary/Chest: Effort normal and breath sounds normal. No respiratory distress. Abdominal: Soft. Bowel sounds are normal. She exhibits no distension and no mass. There is no tenderness. There is no guarding. Musculoskeletal: Normal range of motion. She exhibits no edema and no tenderness. Lymphadenopathy: She has no cervical adenopathy. Neurological: She is alert. Skin: Skin is warm and dry. No rash noted. Psychiatric: She has a normal mood and affect. A: Patient with h/o UC who has done well on sulfasalazine 2500 mg daily until early June with increased sxs,likely proctitis sxs. Symptoms went away on its own with diet modification. Currently asymptomatic. We discussed increasing her sulfasalazine to a goal of 4 gms/day to prevent recurrent sxs. P: - labs today - flu shot today - increase sulfasalzine 3 pills BID x 2 weeks then 4 pills BID as belen. - continue folic acid daily - colo in 2 years for surveillance - will get CD of recent CTscan sent to us for review. documented in this encounter Plan of Treatment Upcoming Encounters Date Type Specialty Care Team Description 10/15/2022 Office Visit Hematology and Oncology Aldo Gaming MD [facility] HEMATOLOGY/ONCOL [place]E DEPT. [place], [place] [address] (Wo rk) documented as of this encounter Procedures Procedure Name Priority Date/Time Associated Diagnosis Comme nts REQUEST FOR 2ND Routine 09/13/2013 9:01 AM Result s for this READ CT ABDOMEN AND EDT procedur e are in PELVIS the results section. CMP W/FASTING Routine 09/11/2013 10:06 AM UC (ulcerative Resul ts for this GLUCOSE EDT colitis) procedure are i n the results section. DIFFERENTIAL, Routine 09/11/2013 10:06 AM Results for this AUTOMATED EDT procedure are i n the results section. CBC (WITH DIFF) Routine 09/11/2013 10:06 AM UC (ulcerative Res ults for this EDT colitis) procedure are i n the results section. CRP, CARDIAC RISK Routine 09/11/2013 10:06 AM UC (ulcerative R esults for this (HS CRP) EDT colitis) procedure are i n the results section. documented in this encounter Results Request for 2nd read CT abdomen & pelvis (09/13/2013 9:01 AM EDT) Anatomical Region Laterality Modality Abdomen, Pelvis Other Specimen (Source) Anatomical Collection Method Collection Time Re ceived Time Location / / Volume Laterality 09/13/2013 9:01 AM EDT Narrative 09/26/2013 10:35 AM EDT Examination OUTSIDE CT ABDOMEN PELVIS Clinical History UC, abdominal pain; What Modality is the exam? CT Scan; Body Part (please add comments as necessary): abd/pelvis; I be lieve a reinterpretation of this exam may alter care of Patient. Yes Comparison None Technique An outside CT scan performed July 25, 2013 and [facility] following the intravenous admin istration of an unknown type or volume of IV contrast and oral contrast. Findings Imaged portions of the lung bases are un remarkable. Review of osseous structures are unremar kable. Liver, gallbladder, pancreas and spleen normal. ??Trace perihepatic free fluid. ?? Bilateral renal cortical hypodense lesio ns the largest of which are simple cysts. ??Nonobstructing punctate left up per pole renal calculus. ??Adrenal glands are normal. ??No enlarged gastrohepatic, portacaval nor retroperitoneal lymph nodes. ??Small mesenteric lymph nodes ac company multiple small left yue pelvic lymph nodes, ??supra colonic and pericol onic nodes about an approximately 6.5 cm segment of severely circumferentially th ickened and edematous sigmoid colon with inflammatory changes circumferentia l to this and ??trace left yue pelvic free fluid. Inflammatory changes do not extend to the rectum. Few diverticula. No free air. ??No fluid collections. ??C ircumferential thickening of approximately 10 cm of distal descending and proximal sigmoid colon proximal to this lesion. Impression Sigmoid colon inflammatory mass. Given t hat the findings are not contiguous to the rectum and that there are only few d iverticul, the possibility that this represents a mass lesion is to be consid ered. The differential diagnosis includes sigmoid diverticulitis and infl ammatory bowel disease. Direct visualization suggested. Procedure Note Mirian Hahn MD - 09/26/[address] ABDOMEN PELVIS Clinical History UC, abdominal pain; What Modality is the exam? CT Scan; Body Part (please add comments as necessary): abd/pelvis; I be lieve a reinterpretation of this exam may alter care of Patient. Yes Comparison None Technique An outside CT scan performed July 25, 2013 and [facility] following the intravenous admin istration of an unknown type or volume of IV contrast and oral contrast. Findings Imaged portions of the lung bases are un remarkable. Review of osseous structures are unremar kable. Liver, gallbladder, pancreas and spleen normal. Trace perihepatic free fluid. Bilateral renal cortical hypodense lesio ns the largest of which are simple cysts. Nonobstructing punctate left uppe r pole renal calculus. Adrenal glands are normal. No enlarged gastrohepatic, p ortacaval nor retroperitoneal lymph nodes. Small mesenteric lymph nodes acco mpany multiple small left yue pelvic lymph nodes, supra colonic and pericolon ic nodes about an approximately 6.5 cm segment of severely circumferentially th ickened and edematous sigmoid colon with inflammatory changes circumferentia l to this and trace left yue pelvic free fluid. Inflammatory changes do not extend to the rectum. Few diverticula. No free air. No fluid collections. Circu mferential thickening of approximately 10 cm of distal descending and proximal sigmoid colon proximal to this lesion. Impression Sigmoid colon inflammatory mass. Given t hat the findings are not contiguous to the rectum and that there are only few d iverticul, the possibility that this represents a mass lesion is to be consid ered. The differential diagnosis includes sigmoid diverticulitis and infl ammatory bowel disease. Direct visualization suggested. L Pedro Luis Guillermo MD IMG OUTSIDE INTERPRETATION O RDERABLES Differential, Automated (09/11/2013 10:06 AM EDT) athologist Signature Neutrophils % 54.8 34.0 - CERNER 71.0 % MILLENNIUM Neutr Abs (ANC) 2.28 1.50 - CERNER 6.30 MILLENNIUM x10(3)/mcL Lymphocytes % 31.0 19.0 - CERNER 53.0 % MILLENNIUM Lymphocytes Abs 1.3 1.0 - 3.6 CERNER x10(3)/mcL MILLENNIUM Monocytes % 7.5 4.0 - 13.0 CERNER % MILLENNIUM Monocyte Abs 0.3 0.2 - 1.0 CERNER x10(3)/mcL MILLENNIUM Eosinophils % 5.5 0.0 - 7.0 CERNER % MILLENNIUM Eosinophils Abs 0.2 0.0 - 0.5 CERNER x10(3)/mcL MILLENNIUM Basophils % 1.0 0.0 - 2.0 CERNER % MILLENNIUM Basophils Abs 0.0 0.0 - 0.2 CERNER x10(3)/mcL MILLENNIUM Immature Gran % 0.20 0.00 - CERNER 0.66 % MILLENNIUM Comment: Immature granulocytes(IG's)percentage an d absolute count will include metamyelocytes, myelocytes, and promyelo cytes. Blood smears from CBCs yielding IG's will be scanned manually for concor dance. If this scan disagrees with the automated IG or if promyelocytes are not ed, a manual differential will be performed. Qi Gran Abs 0.01 0.00 - 0.05 x10(3)/mcL CER NER MILLENNIUM Specimen Anatomical Collection Method Collection Time Receive d Time (Source) Location / / Volume Laterality Blood specimen 09/11/2013 10:06 3 (specimen) AM EDT 10:11 AM EDT L Pedro Luis Guillermo MD HEMATOLOGY ORDERABLES Performing Organization Address City/State/ZIP Code Phon e Number [place] [phone] CERNER MILLENNIUM High Sensitivity CRP (09/11/2013 10:06 AM EDT) athologist Signature CRP High Sens 1.5 mg/L CERNER MILLENNIUM Comment: Interpretations: 1) For accurate cardiac risk assessment, the average of 2 values >2 weeks apart should be obtained (ref 1&2). A value >1 0 mg/L indicates an inflammatory condition, concentrations >10 mg/L shoul d not be used for cardiac risk assessment. ?<1.0 mg/L: low risk ?1.0 - 3.0 mg/L: moderate risk ?>3.0 mg/L: high risk groups for fu ture cardiovascular events 2) The general reference range of appare ntly healthy individuals using this test is <5.0 mg/L (derived from the test package insert) References: 1. Marc ROGER et. al. ??AHA/CDC Scientif ic Statement: Markers of Inflammation and Cardiovascular Disease. ??Circulatio n 2003; 107:499-511 2. Ridker PM. ??Clinical applications of C-reactive protein for cardiovascular disease detection and prevention. ??Circ ulation 2003; 107:363-369 Specimen Anatomical Collection Method Collection Time Receive d Time (Source) Location / / Volume Laterality Blood specimen 09/11/2013 10:06 3 (specimen) AM EDT 10:11 AM EDT Resulting Agency Comment Spec In Lab L Pedro Luis Guillermo MD CHEMISTRY ORDERABLES Performing Organization Address City/State/[place] [address] CERNER MILLENNIUM CMP w/fasting Glucose (09/11/2013 10:06 AM EDT) athologist Signature Glucose 91 65 - 99 CERNER Fasting mg/dL MILLENNIUM Comment: ?Fasting* Glucose Interpretive C riteria Normal ?65-99 mg/dL Impaired Fasting glucose ?100-125 mg/dL Consistent with Diabetes Mellitus ? >or= 126 mg/dL *Fasting is defined as no caloric intake for at least 8 hours In the absence of unequivocal hypergly cemia a plasma glucose value of >or= 126 mg/dL should be repeated on a subseq uent day. Diagnosis and Classification of Diabetes Mellitus, Position Statement from the [place] [employer]. ??Diabete s Care, Volume 33, Supplement 1, Nov 2009 BUN 14 8 - 18 mg/dL CERNER MILLENNIUM Creatinine 0.78 0.70 - 1.20 mg/dL CERNER MILL ENNIUM Comment: Please note that the pediatric reference intervals supplied above were not validated at [facility]. Results from pediatri c patients should be interpreted in conjunction to the patient's age, height and muscle mass. Sodium 140 135 - 145 mmol/L CERNER JAXON NIUM Potassium 3.5 3.5 - 5.0 mmol/L CERNER JAXON NIUM Comment: Please note: ??Patients with WBC >100,00 0 may have falsely elevated Potassium levels. ??For accurate Potassium quantif ication in these patients send serum separator tube (gold top) for subsequent determinations. ??Contact the Clinical Chemistry Laboratory if there are any qu estions. Chloride 104 98 - 107 mmol/L CERNER MILLENN IUM CO2 24 22 - 31 mmol/L CERNER MILLENNI UM Anion Gap 12 5 - 15 mmol/L CERNER MILLENNIU M Calcium 9.5 8.5 - 10.5 mg/dL CERNER JAXON NIUM Total Protein 7.2 6.4 - 8.3 gm/dL CERNER MIL LENNIUM Albumin 4.5 3.2 - 5.2 gm/dL CERNER MILLENN IUM AST 18 0 - 30 unit/L CERNER MILLENNIU M ALT 15 0 - 30 unit/L CERNER MILLENNIU M Alk Phos 85 40 - 104 unit/L CERNER MILLENN IUM Total Bilirubin 0.4 0.2 - 1.3 mg/dL CERNER M ILLENNIUM Bili, Direct 0.1 0.0 - 0.3 mg/dL CERNER MILL ENNIUM Estimated GFR >60 >=60 CERNER MILLENNIU M Comment: This estimated GFR (eGFR) value was calc ulated using the MDRD equation which has been validated on patients between t he ages of 18 and 70. The MDRD should not be used to assess kidney function in patients < 18 years of age or in patients with extremes of body mass, or in patients with acute kidney failure. This value should be multiplied by 1.2 f or patients. For further information please copy and past e the following links into your internet browser. http://www.nkdep.nih.gov/lab-evaluation. shtml http://www.kidney.org/professionals/ Specimen Anatomical Collection Method Collection Time Receive d Time (Source) Location / / Volume Laterality Blood specimen 09/11/2013 10:06 3 (specimen) AM EDT 10:11 AM EDT Resulting Agency Comment Spec In Lab L Pedro Luis Guillermo MD CHEMISTRY ORDERABLES Performing Organization Address City/State/ZIP Code Phon e Number [place] [phone] CERNER MILLENNIUM CBC (with Diff) (09/11/2013 10:06 AM EDT) P athologist Signature WBC 4.2 4.0 - 10.0 CERNER x10(3)/mcL MILLENNIUM RBC 4.91 3.93 - 5.22 CERNER x10(6)/mcL MILLENNIUM Hemoglobin 14.2 11.2 - 15.7 CERNER gm/dL MILLENNIUM Hematocrit 43.2 34.0 - 45.0 CERNER % MILLENNIUM MCV 88.0 79.0 - 94.0 CERNER fL MILLENNIUM MCH 28.9 26.6 - 32.2 CERNER pg MILLENNIUM MCHC 32.9 32.0 - 36.5 CERNER gm/dL MILLENNIUM Platelets 192 145 - 370 CERNER x10(3)/mcL MILLENNIUM RDWSD 43.2 35.0 - 46.0 CERNER fL MILLENNIUM RDWCV 13.5 10.9 - 14.4 CERNER % MILLENNIUM MPV 10.3 9.0 - 12.0 CERNER fL MILLENNIUM Specimen Anatomical Collection Method Collection Time Receive d Time (Source) Location / / Volume Laterality Blood specimen 09/11/2013 10:06 3 (specimen) AM EDT 10:11 AM EDT Resulting Agency Comment Spec In Lab L Pedro Luis Guillermo MD HEMATOLOGY ORDERABLES Performing Organization Address City/[facility]/ZIP Code Phon e Number [address] CERNER MILLENNIUM documented in this encounter Visit Diagnoses Diagnosis UC (ulcerative colitis) - Primary Ulcerative colitis, unspecified documented in this encounter Care Teams Housing Coordinator Relationship Specialty Start Date End Date Tatyana Barr MD PCP - General 12/12/12 09/16/14 [address] [place] [address] documented as of this encounter
--- OUTSIDE RECORDS SUMMARY | 2022-09-09 09:41 | XMS_ITS | Encounter Summary ---
:1955 Author Organization [place] [address] Care Team Providers Name Role Phone Tatyana Grande MD Primary Care Provider Reason for Visit Reason Comments Medication Refill Encounter Details Date Type Department Care Team Description 04/11/2015 Refill Gastroenterology at [facility] [place] [place] Carol[place] Will, [facility] Rub[place] [address] [facility] [phone] GASTROENTEROLOGY DEPT. [place], [place] [address] (Wo rk) Social History Tobacco [...] Aldo Gaming MD [facility] HEMATOLOGY/ONCOL OGY DEPT. [place], [place] [address] (Wo rk) documented as of this encounter Visit Diagnoses Not on filedocumented in this encounter Care Teams Pinmaker Relationship Specialty Start Date End Date Tatyana Grande MD PCP - General 09/17/14 06/07/17 [address] [place] [address] documented as of this encounter
--- OUTSIDE RECORDS SUMMARY | 2022-09-09 09:41 | XMS_ITS | Encounter Summary ---
:1955 [place] [address] Care Team Providers Name Role Phone Tatyana Barr MD Primary Care Provider Encounter Details Date Type Department Care Team Description 02/08/2013 Ancillary Procedure Radiology Library at [facility] MD [facility] [address] [address] [place], [place] [phone] (Wo rk) [phone] Social History Tobacco Use Types Packs/Day Years [...] Visit Hematology and Oncology Aldo Gaming MD [facility] HEMATOLOGY/ONCOL [place] DEPT. [place], [place] [address] (Wo rk) documented as of this encounter Procedures Procedure Name Priority Date/Time Associated Diagnosis Comme nts FILM LIBRARY Routine 02/08/2013 12:00 AM Results for this STORAGE ONLY MAMMO EDT procedure are in the results section. documented in this encounter Results Film Library- Storage Only Mammo (02/08/2013 12:00 AM EDT) Specimen (Source) Anatomical Location Collection Method / Collectio n Time Received Time / Laterality Volume Narrative RAD - 01/01/2021 4:01 PM EST This exam is auto-finalizing. It's purpo se is for storage only. Bang Heath MD G FILM LIBRARY ORDERABLES Performing Organization Address City/State/ZIP Code Phon e Number [place], [place] documented in this encounter Visit Diagnoses Not on filedocumented in this encounter Care Teams Waste Disposal Attendant Relationship Specialty Start Date End Date Tatyana Barr MD PCP - General 12/12/12 09/16/14 [address] [place] [address] documented as of this encounter
--- OUTSIDE RECORDS SUMMARY | 2022-09-09 09:41 | XMS_ITS | Encounter Summary ---
:1955 Author Organization [facility] [place] [address] Care Team Providers Name Role Phone Tatyana Barr MD Primary Care Provider Encounter Details Date Type Department Care Team Description 11/08/2013 Surgery Gastroenterology at [facility] Dequan Francis MD COLONOSCOPY FLEXIBLE, [facility] WITH BX (WRVU 3.66) [place] [address] [address] [phone] GASTROENTEROLOGY DEPT. [place], [place] [address] Social History Tobacco Use Types [...] you need to be checked. Wednesday-Wednesday Clinic [phone] 8a-5p Same Day Endo [phone] 7a-8p Otherwise contact [phone] and ask to speak to the configuration engineer casino floor person Follow up care is a chowdhury part of your treatment and safety. Be sure to make and go to all appointments, and call your doctor if you are having problems. Discharge instructions reviewed with patient who expresses understanding Patient InstructionsDequan Francis MD - 11/08/2013 5:02 PM EST Please [...] documented as of this encounter H&P Notes eDquan Francis MD - 11/08/2013 4:40 PM EST Gastroenterology [...] 11:18 PM EST OR Attestation - Dequan Francis MD - 11/08/2013 5:02 PM EST Attestation: Case Date: 11/08/2013 I performed this procedure without the involvement of a resident. DEQUAN FRANCIS MD 11/08/2013 Miscellaneous - Provider, Scanning - 11/08/2013 3:50 PM EST documented in this encounter Plan of Treatment Upcoming Encounters Date Type Specialty Care Team Description 10/15/2022 Office Visit Hematology and Oncology Aldo Gaming MD [facility] H[facility]OLOGY/[facility] [place] [address] ( rk) documented as of this encounter Procedures [...] Surgical Pathology Report (11/08/2013 5:04 PM EST) [facility] Method Time Signature Surgical CERNER Pathology ? [facility] Report ? Provider: ?? DEQUAN FRANCIS ?Pt. Name: ?? TATYANA CANO ? Acc #: ?[id number] ?Pt. MRN: ?[id number] ? Col Date: ?? 11/08/20 13 ?/Sex: [...] Volume Laterality 11/08/2013 5:04 PM EST Dequan Francis MD PATHOLOGY/CYTOLOGY ORDERABLE S Performing Organization Address City/[facility]/ZIP [facility] Phon e Number [address] [facility] Specimen to Pathology (surgical or derm) (11/08/2013 5:04 PM EST) Specimen Anatomical Collection Method Collection Time Receive d Time (Source) Location / / Volume Laterality AP Specimen 11/08/2013 5:04 PM 3 5:04 EST PM EST Narrative CERNER MILLENNIUM - 11/08/2013 5:[address] Specimen requisition ordered. ??Separate Pathology report to follow Dequan Francis MD PATHOLOGY/CYTOLOGY ORDERABLE S Performing Organization Address City/[facility] Phon e Number [address] [employer] | Anywhere documented in this encounter Visit Diagnoses Diagnosis UC (ulcerative colitis) Ulcerative colitis, unspecified documented in this encounter Administered Medications Inactive Administered Medications - up to 3 most recent administrations Medication Order MAR Action Action Date Dose Rate Site fentaNYL 50mcg/mL injection Given 11/08/2013 4:52 PM EST 25 mcg ONCE PRN, Starting on Wed11/08/13 at 1643, Until Wed11/08/13 at 2052, Pain, Intra-Operative (Intra-Procedure), Routine Given 11/08/2013 4:46 PM EST 50 mcg Given 11/08/2013 4:43 PM EST 50 mcg lidocaine (XYLOCAINE) 2 % jelly Given 11/08/2013 4:47 PM EST 1 Bottle ONCE PRN, Pain, Starting on Wed11/08/13 at 1647, Until Wed11/08/13 at 205, Intra-Operative (Intra-Procedure) midazolam (VERSED) injection Given 11/08/2013 4:52 PM EST 1 mg ONCE PRN, Starting on Wed11/08/13 at 1643, Until Wed11/08/13 at 2052, Sleep, Intra-Operative (Intra-Procedure), Routine Given 11/08/2013 4:46 PM EST 1 mg Given 11/08/2013 4:43 PM EST 2 mg documented in this encounter Active and Recently Administered Medications Times are shown in EST. PRN Medication Order 11/06/2013 11/07/2013 11/08/2013 fentaNYL 50mcg/mL injection (CANCELED) 1643 (Given - Provider: Machelle Enciso RN)1646 (Given - Provider: Machelle Enciso RN)165 (Given - Provider: Machelle Enciso RN) ONCE PRN, Starting Wed11/08/13 at 1643, Until Wed11/08/13 at 2052, Pain, Intra-Operative (Intra-Procedure), Routine lidocaine (XYLOCAINE) 2 % jelly (CANCELED) 1647 (Given - Provider: Dequan Francis MD) ONCE PRN, Pain, Starting Wed11/08/13 at 1647, For 1 dose, Intra-Operative (Intra-Procedure) midazolam (VERSED) injection (CANCELED) 164 (Given - Provider: Machelle Enciso RN)1646 (Given - Provider: Machelle Enciso RN)165 (Given - Provider: Machelle Enciso RN) ONCE PRN, Starting Wed11/08/13 at 1643, Until Wed11/08/13 at 205, Sleep, Intra-Operative (Intra-Procedure), Routine documented in this encounter Care Teams Press Operator Instant Print Shop Relationship Specialty Start Date End Date Tatyana Barr MD PCP - General 12/12/12 09/16/14 [address] [place] [address] documented as of this encounter"
--- OUTSIDE RECORDS SUMMARY | 2022-09-09 09:41 | XMS_ITS | Encounter Summary ---
:1955 [place] [address] Care Team Providers Name Role Phone Tatyana Barr MD Primary Care Provider Encounter Details Date Type Department Care Team Description 02/09/2014 Ancillary Procedure Radiology Library at [facility] MD [facility] [address] [address] [place], [place] [phone] (Wo rk) [phone] Social History Tobacco Use Types Packs/Day Years [...] Aldo Gaming MD [facility] HEMATOLOGY/[facility] DEPT. [place], [place] [address] (Wo rk) documented as of this encounter Procedures Procedure Name Priority Date/Time Associated Diagnosis Comme nts FILM LIBRARY Routine 02/09/2014 12:00 AM Results for this STORAGE ONLY MAMMO EDT procedure are in the results section. documented in this encounter Results Film Library- Storage Only Mammo (02/09/2014 12:00 AM EDT) Specimen (Source) Anatomical Location Collection Method / Collectio n Time Received Time / Laterality Volume Narrative RAD - 01/01/2021 4:01 PM EST This exam is auto-finalizing. It's purpo se is for storage only. Bang Heath MD G FILM LIBRARY ORDERABLES Performing Organization Address City/State/ZIP Code Phon e Number [place], [place] documented in this encounter Visit Diagnoses Not on filedocumented in this encounter Care Teams Combatant Diver Officer Relationship Specialty Start Date End Date Tatyana Barr MD PCP - General 12/12/12 09/16/14 [address] [place] [address] documented as of this encounter
--- OUTSIDE RECORDS SUMMARY | 2022-09-09 09:41 | XMS_ITS | Encounter Summary ---
:1955 Author Organization [facility] [place] [address] Care Team Providers Name Role Phone Tatyana Barr MD Primary Care Provider Encounter Details Date Type Department Care Team Description 12/15/2012 Surgery Gastroenterology at [facility] Marily Cano, COLONOSCOPY FLEXIBLE, [facility] Rubin velazquez MD WITH BX (WRVU 3.66) [place] [address] [facility] [phone] GASTROENTEROLOGY DEPT. [place], [place] [address] Social History Tobacco Use Types [...] occurs please contact your M.D. Please call [phone] before 5 pm with problems, questions or concerns. After 5pm call [phone] and ask to speak with the caddy packer net applications developer. Discharge instructions reviewed with patientwho expresses understanding. AttachmentsThe following attachments cannot be sent through Care Everywhere. COLONOSCOPY: WHAT TO EXPECT AT HOME (MONGOLIAN)documented in this encounter Medications at Time of Discharge Medication Sig Dispensed Refills Start Date End Date atenolol (TENORMIN) 25 mg 0 03/07/2010 tablet levothyroxine (SYNTHROID) 88 Take 150 mcg by 0 06/22/2018 mcg tablet mouth daily. CIS Free Text Med - Daily 0 03/07/2010 06/22/2018 Multivitamin sulfaSALAzine (AZULFIDINE) 500 2500mg, PO, 0 07/201009/11/2013 mg tablet Once daily CALCIUM ORAL 0 03/07/2010 09/17/2014 rizatriptan (MAXALT-COMPUTER SYSTEMS ARCHITECT) 10 mg 10MG = 1 0 03/0709/11/2013 [...] Cano MD - 12/15/2012 10:00 AM EST [facility] Operative Note Patient Name: Tatyana Skelton : [id number] MR#: [id number] Case Date: 12/15/2012 Surgeon: Surgeon(s) and Role: [...] Visit Hematology and Oncology Aldo Gaming MD [facility] HEMATOLOGY/[facility] DEPT. [place], [place] [address] (Wo rk) documented as of [...] Surgical Pathology Report (12/15/2012 11:52 AM EST) [facility] Method Time Signature Surgical CERNER Pathology ? [facility] Report ? Provider: ?? Marily CANO ?Pt. Name: ?? MARIANN Ennis, TATYANA Barker ? Acc #: ?[id number] ?Pt. MRN: ?[id number] ? Col Date: ?? 3 ? /Sex: [...] ? Qty/Size/Weight: ?Multiple, averaging 322 cm. ? [facility] ? Provider: ?? Marily CANO ?Pt. Name: ?? MARIANN R, TATYANA Barker ? Acc #: ?[id number] ?Pt. MRN: ?[id number] ? Col Date: ?? 3 ? /Sex: [...] Organization Address City/State/[place] [address] CERNER MILLENNIUM Specimen to [...] MD PATHOLOGY/CYTOLOGY ORDERABLE S Performing Organization Address [facility]/ZIP Code Phon e Number [address] CERNER MILLENNIUM Specimen to [...] City/[facility]/ZIP Code Phon e Number [address] CERNER MILLENNIUM Specimen to [...] ORDERABLE S Performing Organization Address City/[facility] [place] [address] CERNER MILLENNIUM Specimen to [...] Organization Address City/State/[place] [address] [facility] (12/15/2012 8:45 AM EST) [facility] Method Time Signature COLONOSCOPY [facility] PROVATION Endoscopy Patient Name: Tatyana Skelton ? Procedure Date: 12/15/2012 8:45 AM ? [facility]: [id number] ? Date of : 1955 ? Age: 57 ? Order #: [id number] ? Procedure: ? Colonoscopy Indications: ? High risk colon cancer surveillance : ? Ulcerative pancolitis of 8+ y ears ? duration Providers: ? Uli Cano MD, Kameron jaime, ? RN, Gasper Mccarthy, Slab Off Mill Tender Referring MD: ?Tatyana Barr MD Medicines: ? [...] Dose Rate Site fentaNYL 50mcg/mL injection Given 12/15/2012 9:51 AM EST 50 mcg ONCE PRN, Starting on Kacy 12/15/12 at 0916, Until Kacy 12/15/12 at 1454, Pain, Intra-Operative (Intra-Procedure), Routine Given 12/15/2012 9:32 AM EST 50 mcg Given 12/15/2012 9:20 AM EST 50 mcg midazolam (VERSED) injection Given 12/15/2012 9:32 AM EST 1 mg ONCE PRN, Starting on Kacy 12/15/12 at 0916, Until Kacy 12/15/12 at 1454, Sleep, Intra-Operative (Intra-Procedure), Routine Given 12/15/2012 9:20 AM EST 1 mg Given 12/15/2012 9:16 AM EST 1 mg documented in this encounter Active and Recently Administered Medications Times are shown in EST. PRN Medication Order 12/13/2012 12/14/2012 12/15/2012 fentaNYL 50mcg/mL injection (CANCELED) 09 (Given - Provider: Kameron Jackson RN)0916 (Given - Provider: Kameron Jackson RN)0920 (Given - Provider: Kameron Jackson RN)0932 (Given - Provider: Kameron Jackson RN)0951 (Given - Provider: Kameron Jackson RN) ONCE PRN, Starting Kacy 12/15/12 at 0916, Until Kacy 12/15/12 at 1454, Pain, Intra- Operative (Intra-Procedure), Routine midazolam (VERSED) injection (CANCELED) 09 (Given - Provider: Kameron Jackson RN)0916 (Given - Provider: Kameron Jackson RN)0920 (Given - Provider: Kameron Jackson RN)0932 (Given - Provider: Kameron Jackson RN) ONCE PRN, Starting Kacy 12/15/12 at 0916, Until Kacy 12/15/12 at 1454, Sleep, Intra- Operative (Intra-Procedure), Routine documented in this encounter Care Teams Casing Builder Relationship Specialty Start Date End Date Tatyana Barr MD PCP - General 12/12/12 09/16/14 [address] [place] [address] documented as of this encounter
--- OUTSIDE RECORDS SUMMARY | 2022-09-09 09:41 | XMS_ITS | Encounter Summary ---
:1955 [place] [address] Care Team Providers Name Role Phone Tatyana Grande MD Primary Care Provider Encounter Details Date Type Department Care Team Description 02/12/2015 Ancillary Procedure Radiology Library at [facility] MD [facility] [address] [address] [place], [place] [phone] (Wo rk) [phone] Social History Tobacco Use Types Packs/Day Years [...] Aldo Gaming MD [facility] HEMATOLOGY/[facility] DEPT. [place], [place] [address] (Wo rk) documented as of this encounter Procedures Procedure Name Priority Date/Time Associated Diagnosis Comme nts FILM LIBRARY Routine 02/12/2015 12:00 AM Results for this STORAGE ONLY MAMMO EDT procedure are in the results section. documented in this encounter Results Film Library- Storage Only Mammo (02/12/2015 12:00 AM EDT) Specimen (Source) Anatomical Location Collection Method / Collectio n Time Received Time / Laterality Volume Narrative RAD - 01/01/2021 4:02 PM EST This exam is auto-finalizing. It's purpo se is for storage only. Bang Heath MD G FILM LIBRARY ORDERABLES Performing Organization Address City/State/ZIP Code Phon e Number [place], [place] documented in this encounter Visit Diagnoses Not on filedocumented in this encounter Care Teams Crematorium Operator Relationship Specialty Start Date End Date Tatyana Grande MD PCP - General 09/17/14 06/07/17 [address] [place] [address] documented as of this encounter
--- OUTSIDE RECORDS SUMMARY | 2022-09-09 09:41 | XMS_ITS | Encounter Summary ---
:1955 [place] [address] Care Team Providers Name Role Phone Jayant Cuevas DO Primary Care Provider Encounter Details Date Type Department Care Team Description 02/08/2012 Ancillary Procedure Radiology Library at [facility] MD [facility] [address] [address] [place], [place] [phone] (Wo rk) [phone] Social History Tobacco Use Types Packs/Day Years Used Date Never Assessed Transportation Needs Answer Date Recorded In the [...] [facility] DEPT. [place], [place] [address] (Wo rk) documented as of this encounter Procedures Procedure Name Priority Date/Time Associated Diagnosis Comme nts FILM LIBRARY Routine 02/08/2012 12:00 AM Results for this STORAGE ONLY MAMMO EDT procedure are in the results section. documented in this encounter Results Film Library- Storage Only Mammo (02/08/2012 12:00 AM EDT) Specimen (Source) Anatomical Location Collection Method / Collectio n Time Received Time / Laterality Volume Narrative RAD - 01/01/2021 4:00 PM EST This exam is auto-finalizing. It's purpo se is for storage only. Bang Heath MD [facility] FILM LIBRARY ORDERABLES Performing Organization Address City/State/ZIP Code Phon e Number [place], [place] documented in this encounter Visit Diagnoses Not on filedocumented in this encounter Care Teams Ui Developer With Angular Js Relationship Specialty Start Date End Date Jayant Cuevas DO PCP - General 10/21/10 12/11/[address] [place] [address] documented as of this encounter
--- OUTSIDE RECORDS SUMMARY | 2022-09-09 09:41 | XMS_ITS | Encounter Summary ---
:1955 [place] [address] Care Team Providers Name Role Phone Tatyana Grande MD Primary Care Provider Encounter Details Date Type Department Care Team Description 09/17/2014 Follow-Up Gastroenterology at [facility] Marily Guillermo UC ([facility] Rubin Cloud MD colitis), [place] [address] [facility] (Primary [phone] [place]) [place] [address] Social History Tobacco Use Types Packs/Day Years [...] Sign Reading Time Taken Comments Blood Pressure 146/88 09/17/2014 10:26 AM EDT Pulse 68 09/17/2014 10:26 AM EDT Temperature - - Respiratory Rate - - Oxygen Saturation - - Inhaled Oxygen Concentration - - Weight 78.8 kg (173 lb 12.8 oz) 09/17/2014 10:26 AM EDT Height 170.2 cm (5' 7) 09/17/2014 10:26 AM EDT Body Mass Index 27.22 09/17/2014 10:26 AM EDT documented in this encounter Patient Instructions Patient InstructionsLeMarily seymour MD - 09/17/2014 11:05 AM EDT # Continue sulfasalazine 2 g twice per day # Check complete blood count, liver tests, kidney tests, urinalysis annually - due now - to evaluatefor rare complications from IBD (PSC) and from mesalamine (interstitial nephritis, abnormal LFTs, myelosuppression). Will have them checked in November at the apptmt with Dr. Grande. # Recommend repeat colonoscopy next year for surveillance for dysplasia. # Follow-up with me at the time of colonoscopy and in the office in one year or sooner as needed. documented in this encounter Progress Notes Marily Guillermo MD - 09/17/2014 11:02 AM EDT Patient Active Problem List Diagnosis ??? UC (ulcerative colitis) Overview Note: ?? dx 1984 ?? Last colonoscopy 10/2013 - segmental area of moderately erythematous and thickened mucosa was found in the sigmoid colon. Biopsies negative. ?? Colonoscopy 11/2012 ([facility]): No clear signs of active colitis. Surveillance biopsies taken. External and internal hemorrhoids. Diverticulosis in the sigmoid colon with associated sigmoid erythema. Ileum normal. Surveillance biopsies quiescent without dysplasia except Rectosigmoid colon, biopsy: Patchy mildly active chronic colitis. ?? CT scan 07/25/13 ( [facility]) : Thickening of the wall [...] up today for a history of UC. She is moving her bowels once per day for formed stool without blood and without mucus. There is no abdominal pain for the last year except for mild abdomunal cramping a couple of weeks ago. She has had a lot of stressors REVIEW OF SYSTEMS Notable for the gastrointestinal [...] bruising or bleeding. PHYSICAL EXAMINATION: Filed Vitals: 09/17/14 1026 BP: 146/88 Pulse: 68 Wt Readings from Last 3 Encounters: 09/17/14 78.835 kg (173 lb 12.8 oz) 11/08/13 73.483 kg (162 lb) 11/08/13 73.483 kg (162 lb) GEN: Healthy-appearing in no acute distress. Appears stated age. Cooperate and answers questions appropriately. Lab Results Component Value Date WBC 4.2 09/11/2013 RBC 4.91 09/11/2013 HGB 14.2 09/11/2013 HCT 43.2 09/11/2013 MCV 88.0 09/11/2013 MCH 28.9 09/11/2013 MCHC 32.9 09/11/2013 PLATELET 192 09/11/2013 RDWCV 13.5 09/11/2013 Chemistry Component Value Date/Time NA 140 09/11/2013 1006 K 3.5 09/11/2013 1006 CL 104 09/11/2013 1006 CO2 24 09/11/2013 1006 BUN 14 09/11/2013 1006 CREATININE 0.78 09/11/2013 1006 Component Value Date/Time CALCIUM 9.5 09/11/2013 1006 ALKPHOS 85 09/11/2013 1006 AST 18 09/11/2013 1006 ALT 15 09/11/2013 1006 BILITOT 0.4 09/11/2013 1006 IMPRESSION AND RECOMMENDATIONS: Ms. Skelton is doing well in symptomatic remission on sulfasalazine. Recommended continuing the SSZ at current dose. Discussed the importance of maintaining current doses to retain remission. Due for surveillance colonoscopy in 2014. We discussed the following recommendations that were printed out for the patient: # Continue sulfasalazine 2 g twice per day # Check complete blood count, liver tests, kidney tests, urinalysis annually - due now - to evaluatefor rare complications from IBD (PSC) and from mesalamine (interstitial nephritis, abnormal LFTs, myelosuppression). Will have them checked in November at the apptmt with Dr. Grande. # Recommend repeat colonoscopy next year for surveillance for dysplasia. # Follow-up with me at the time of colonoscopy and in the office in one year or sooner as needed. 10 min of this 15 min [id number] visit was spent counseling the patient in the issues outlined above. Chele Guillermo MD Lockstitch Waistline Joinercuff folder Section of Gastroenterology [place] [address] documented in this encounter Plan of Treatment Upcoming Encounters Date Type Specialty Care Team Description 10/15/2022 Office Visit Hematology and Oncology Aldo Gaming MD [facility] HEMATOLOGY/[facility] DEPT. [place], [place] [address] (Wo rk) Scheduled Orders Name Type Priority Associated Diagnoses Order S chedule COLONOSCOPY Procedures Routine Uc (Ulcerative Colitis), Kit juarez Ordered: 09/17/2014 Complications documented as of this encounter Visit Diagnoses Diagnosis UC (ulcerative colitis), without complic ations - Primary documented in this encounter Care Teams Professor Of Astronomy Relationship Specialty Start Date End Date Tatyana Grande MD PCP - General 09/17/14 06/07/17 [address] [place] [address] documented as of this encounter
--- OUTSIDE RECORDS SUMMARY | 2022-09-09 09:41 | XMS_ITS | Encounter Summary ---
:1955 Author Organization [facility] [place] [address] Care Team Providers Name Role Phone Tatyana Barr MD Primary Care Provider Encounter Details Date Type Department Care Team Description 09/13/2013 Hospital Encounter XRay at [facility], DR OM[place]LEY [address] [place] [address] [place] [address] Social History Tobacco Use Types Packs/Day [...] 03/07/2010 09/17/2014 documented as of this encounter Plan of Treatment Upcoming Encounters Date Type Specialty Care Team Description 10/15/2022 Office Visit Hematology and Oncology Aldo Gaming MD [facility] HEMATOLOGY/[place] [address] (Wo rk) documented as of this encounter Visit Diagnoses Not on filedocumented in this encounter Care Teams Commercial Litigation Paralegal Relationship Specialty Start Date End Date Tatyana Barr MD PCP - General 12/12/12 09/16/14 [address] [place] [address] documented as of this encounter
--- OUTSIDE RECORDS SUMMARY | 2022-09-09 09:41 | XMS_ITS | Encounter Summary ---
:1955 Author Organization [facility] [place] [address] Care Team Providers Name Role Phone Tatyana Barr MD Primary Care Provider Encounter Details Date Type Department Care Team Description 07/25/2013 Orders Only Hematology and Oncology Robert [facility] [place] [address] [place] [address] [phone] (Wo rk) Social History Tobacco Use Types [...] [facility] DEPT. [place], [place] [address] (Wo rk) documented as of this encounter Procedures Procedure Name Priority Date/Time Associated Diagnosis Comme nts FILM LIBRARY Routine 07/25/2013 8:13 AM Results f or this STORAGE ONLY CT EDT procedure ar e in ABDOMEN AND PELVIS the resul ts section. documented in this encounter Results Film Library- Storage only CT abdomen & pelvis (07/25/2013 8:13 AM EDT) Specimen (Source) Anatomical Collection Method Collection Time Re ceived Time Location / / Volume Laterality 07/25/2013 8:13 AM EDT Narrative RAD - 07/16/2014 7:08 PM EDT This is a non-reportable exam. Procedure Note Huy Eid - 07/16/2014Formatti ng of this note might be different from the original. This is a non-reportable exam. Robert Will MD [facility] FILM LIBRARY ORDERABLES Performing Organization Address City/State/ZIP Code Phon e Number [facility] RAD [address] [facility] [place] [address] documented in this encounter Visit Diagnoses Not on filedocumented in this encounter Care Teams Print Finisher Relationship Specialty Start Date End Date Tatyana Barr MD PCP - General 12/12/12 09/16/14 [address] [place] [address] documented as of this encounter
--- OUTSIDE RECORDS SUMMARY | 2022-09-09 09:41 | XMS_ITS | Encounter Summary ---
:1955 [place] [address] Care Team Providers Name Role Phone Jayant Cuevas DO Primary Care Provider Encounter Details Date Type Department Care Team Description 02/04/2011 Ancillary Procedure Radiology Library at [facility] MD [facility] [address] [address] [place], [place] [phone] (Wo rk) [phone] Social History Tobacco Use Types Packs/Day Years [...] [facility] HEMATOLOGY/[facility] DEPT. [place], [place] [address] (Wo rk) documented as of this encounter Procedures Procedure Name Priority Date/Time Associated Diagnosis Comme nts FILM LIBRARY Routine 02/04/2011 12:00 AM Results for this STORAGE ONLY MAMMO EST procedure are in the results section. documented in this encounter Results Film Library- Storage Only Mammo (02/04/2011 12:00 AM EST) Specimen (Source) Anatomical Location Collection Method / Collectio n Time Received Time / Laterality Volume Narrative [facility] - 01/01/2021 3:57 PM EST This exam is auto-finalizing. It's purpo se is for storage only. [facility] MD [facility] [place]M LIBRARY ORDERABLES Performing Organization Address City/State/ZIP Code Phon e Number [place], [place] documented in this encounter Visit Diagnoses Not on filedocumented in this encounter Care Teams Airplane Cleaner Relationship Specialty Start Date End Date Jayant Cuevas DO PCP - General 10/21/10 12/11/[address] [place] [address] documented as of this encounter
--- OUTSIDE RECORDS SUMMARY | 2022-09-09 09:41 | XMS_ITS | Encounter Summary ---
:1955 Author Organization [facility] [place] [address] Care Team Providers Name Role Phone Tatyana Barr MD Primary Care Provider Encounter Details Date Type Department Care Team Description 10/31/2013 Telephone Gastroenterology at [facility] Carolin Will, [facility] [place] [phone] [facility] [phone] GASTROENTEROLOGY DEPT. [place], [place] [address] (Wo rk) Social History Tobacco Use Types [...] this encounter Miscellaneous Notes Telephone Encounter - Carolin Will APRN - 10/31/2013 11:38 AM EST I called pt and review her CT scan as read here at [facility]. See below. As d/w DR. Guillermo, we will get a f/u colonoscopy. She is feeling well. ############ From Dr. Guillermo: Yes. I agree that I would do a colonoscopy sooner. With her long history of UC would make sure that this was diverticulitis and not dysplastic. Would put her in right away - within a few weeks. Could be with me, Quique, Frandy, or Dequan. Thanks, C ----- Message ----- From: Carolin Will APRN Sent: 10/06/2013 3:31 PM To: Carolin Will APRN, L Campbell Levy, MD Subject: ? on CT, fredo read Pedro Luis Estes, Could you please look at this CT scan reports., second read here. What do you think about the sigmoid inflammatory mass. She had a colo in Nov with you, no active colitis, found diverticulosis in the sigmoid colon. The CT was done in June when she presented to her PCP d/t increased bowel frequent, tenesmus, crampy pain. Doing better when I saw her in August for f/u. Do you think sheneeds another colo sooner.Due in 2014. Thanks tami OUTSIDE CT ABDOMEN PELVIS An outside CT scan performed July 25, 2013 and [facility] following the intravenous administration of an unknown type or volume of IV contrast and oral contrast. Findings Imaged portions of the lung bases are unremarkable. Review of osseous structures are unremarkable. Liver, gallbladder, pancreas and spleen normal. Trace perihepatic free fluid. Bilateral renal cortical hypodense lesions the largest of which are simple cysts. Nonobstructing punctate left upper pole renal calculus. Adrenal glands are normal. No enlarged gastrohepatic, portacaval nor retroperitoneal lymph nodes. Small mesenteric lymph nodes accompany multiple small left yue pelvic lymph nodes, supra colonic and pericolonic nodes about an approximately 6.5 cm segment of severely circumferentially thickened and edematous sigmoid colon with inflammatory changes circumferential to this and trace left yue pelvic free fluid. Inflammatory changes do not extend to the rectum. Few diverticula. No free air. No fluid collections. Circumferential thickening of approximately 10 cm of distal descending and proximal sigmoid colon proximal to this lesion. Impression Sigmoid colon inflammatory mass. Given that the findings are not contiguous to the rectum and that there are only few diverticul, the possibility that this represents a mass lesion is to be considered. The differential diagnosis includes sigmoid diverticulitis and inflammatory bowel disease. Direct visualization suggested. documented in this encounter Plan of Treatment Upcoming Encounters Date Type Specialty Care Team Description 10/15/2022 Office Visit Hematology and Oncology Aldo Gaming MD [facility] HEMATOLOGY/[facility] DEPT. [place], [place] [address] (Wo rk) documented as of this encounter Visit Diagnoses Diagnosis UC (ulcerative colitis) - Primary Ulcerative colitis, unspecified documented in this encounter Care Teams Parcel Contractor Relationship Specialty Start Date End Date Tatyana Barr MD PCP - General 12/12/12 09/16/14 [address] [place] [address] documented as of this encounter
== END 2022-09-07 09:33 | disposition home or self-care (01) ==
LOC: DIORS 09-09 09:35
PROVIDERS: PCP Family Medicine; Visit Provider Physician Assistant Surgical
DX: S52.501D Unspecified fracture of the lower end of right radius, subsequent encounter for closed fracture with routine healing (principal); X58.XXXD Exposure to other specified factors, subsequent encounter; Z47.89 Encounter for other orthopedic aftercare; E11.9 Type 2 diabetes mellitus without complications
CPT/HCPCS: 73100

== ENCOUNTER 2022-09-09 11:42 | Outpatient (REF) | payer MEDICARE, SELFPAY ==
--- NOTE | 2022-09-09 11:10 | PAPFT_PTH ---
PATIENT: Tatyana Skelton LOC: [facility] U#:[id number] AGE/SX: 67/F ROOM: RE09/09/[address]: Alejandra Hunter MD : 1955 BED: DIS: 09/09/2022 SPEC #: [id number] RECD: 09/09/22 13:01 STATUS: HILARIO REQ #: [id number] TERESITA: 09/09/22 11:[address]: Alejandra Hunter DEPT: [facility] Cytology RECD BY: Fidelina Solano ENTERED: 09/09/22 13:01 SP TYPE: PAPFT OTHR DR: Mely Solano Tissues: 1 - CX/ENDOCX FOR PAP SMEARS Procedures: PAP THIN PREP/UVM Screening HPV DNA PROBE Comments: [id number]
== END 2022-09-09 11:43 | disposition home or self-care (01) ==
LOC: LBN 11:42
PROVIDERS: PCP Family Medicine; Visit Provider Obstetrics & Gynecology
DX: Z12.4 Encounter for screening for malignant neoplasm of cervix (principal); Z11.51 Encounter for screening for human papillomavirus (HPV); Z01.419 Encounter for gynecological examination (general) (routine) without abnormal findings
CPT/HCPCS: 88142; 87624

== ENCOUNTER 2023-03-01 10:35 | Day surgery (SDC) | payer MEDICARE, SELFPAY ==
--- NOTE | 2023-03-01 07:31 | W.ANESPRE ---
General Info Date of Service Date Performed: 03/01/23 Height: 5 ft 7 in Weight: 68.039 kg Body Mass Index (BMI): 23.5 Surgical Procedure: Operation Date: 03/01/23 13:40 Proposed Procedure Side Surgeon p Cataract Extraction with IOL Implant Right Ezequiel Giraldo MD Meds Allergies and Home Medications Allergies Allergy/AdvReac Type Severity Reaction Status Date / Time shellfish derived Allergy Mild Verified 03/01/23 11:06 lactose AdvReac Mild Verified 03/01/23 11:06 lisinopril AdvReac Mild COUGH Verified 03/01/23 11:06 Home Medication Medication Instructions Recorded calcium carbonate 600 mg-vitamin 2 ea PO DAILY 07/25/13 D3 10 mcg (400 unit) tablet (Calcium 600 + D(3)) multivitamin 1 ea PO DAILY 07/25/13 sulfasalazine 500 mg tablet 2,000 mg PO BID 07/25/13 chromium picolinate 200 mcg capsule 200 mcg PO DAILY 12/14/17 blood-glucose meter,continuous #1 ea 03/05/21 (Dexcom G6 Allergy And Immunology Specialist) blood-glucose sensor (Dexcom G6 #3 ea 03/05/21 Sensor device) blood-glucose transmitter (Dexcom #1 ea 03/05/21 G6 Transmitter device) pen needle, diabetic 31 gauge x #1,200 ea 03/05/2104/13 (BD Ultra-Fine Short Pen Needle) atorvastatin 40 mg tablet 40 mg PO DAILY #90 tabs 03/13/22 levothyroxine 175 mcg tablet 175 mcg PO 6XW 03/13/22 alendronate 70 mg tablet 70 mg PO QWEEK #13 tabs 04/24/22 atenolol 25 mg tablet 25 mg PO HS 06/12/22 losartan 25 mg tablet 25 mg PO HS 06/12/22 acetaminophen 500 mg capsule 1,000 mg PO Q8H PRN PRN #30 caps 06/16/22 insulin lispro 100 unit/mL See Rx Instructions subcut tid 08/05/22 subcutaneous pen (Humalog KwikPen with meals prn (U-100) Insulin) estradiol 0.01% (0.1 mg/gram) See Rx Instructions vaginal 09/02/22 vaginal cream (Estrace) .COMPLEX #42.5 grams metformin 500 mg tablet 500 mg PO BID 09/07/22 ascorbate calcium (vitamin C) 500 1 g PO DAILY 02/17/23 mg tablet insulin glargine 100 unit/mL (3 19 unit subcut QAM 02/17/23 mL) subcutaneous pen (Lantus Solostar U-100 Insulin) vit A 7,160 unit-C 113 mg-E 100 1 tab PO BID 02/17/23 [id number]-[id number] tablet,delayed rel. (ICaps AREDS) Current Visit Medications: Current Medications Generic Name Dose Route Start Last Admin Trade Name Freq PRN Reason Stop Dose Admin Acetaminophen 1,000 mg 03/01/23 06:00 Acetaminophen 500 Mg Tab PO Q4H PRN PRN Miscellaneous Medication 0 ml 03/01/23 06:00 Tropicam./Phenyleph. 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 Osteoporosis of femur without pathological fracture ~04/24/22 M81.0 Osteoarthritis of carpometacarpal joint of right thumb M18.11 Medical History Medical History Diabetes type I History of lobular carcinoma of breast triple negative, invasive; s/p oral chemo; IV chemo Leukoplakia Macular hole, right eye Repair 2021 Migraine Sigmoid diverticulosis (03/11/18) Surgical History Surgical History (Updated 03/01/23 @ 11:08 by Monique Solano) History of bilateral ligation of fallopian tubes (~07/1991) History of removal of tunneled central venous catheter (CVC) with port 05/19 during mastectomy S/P colonoscopy (~06/29/19) S/P mastectomy, bilateral (04/2021) Preferred BP and IV starts on LEFT arm Tobacco Smoking/Tobacco Use Status: Never Passive smoking exposure: Yes Second hand exposure: Yes Alcohol Alcohol Intake: former Substance Use Substance use: Never Substance use type: does not use Vital Signs and Lab Results Lab Results Blood Type / Crossmatch: No Data to Display Complete Blood Count: No Data to Display Complete Metabolic Panel: No Data to Display Liver Function Panel: No Data to Display Coagulation Panel: No Data to Display Cardiac Panel: No Data to Display Arterial Blood Gas: No Data to Display Venous Blood Gas: No Data to Display Pancreas Panel: No Data to Display Thyroid Panel: No Data to Display Infectious Disease: No Data to Display Blood Cultures: No Data to Display Toxicology Panel: No Data to Display Imaging and Studies Imaging and Studies Study information below may be from another EMR and interpreted by another provider. Please see original notes in EMR for more complete details. Stress Test Summary: 08/2019: Stress ECG Conclusion 1. The patient demonstrated reasonable exercise tolerance (8.4 METS) 2. This was a maximal effort stress test 3. There were [address] depressions in the inferior leads during exercise. These depressions resolved during recovery MPI Conclusion There is no evidence of ischemia on imaging portion of this exam. Wall motion was normal. There are discordant findings between EKG and imaging portion of this exam. The Tamayo Score (-4) estimates an annual cardiovascular mortality of 2% and a five year survival of 89% Using the Tamayo Score there is an intermediate probability of angiographic coronary disease. Anesthesia Assessment and Plan Anesthesia History Personal History: No History of Anesthesia Complications and Other Family History: No Family History of Anesthesia Complications Exercise Tolerance Exercise Tolerance: Metabolic Equivalents>4 Pertinent Negatives Pertinent Negatives: No Symptoms of GERD Cardiac & Pulmonary Exam Cardiac Exam: Normal S1/S2 Heart Sounds Pulmonary Exam: Clear Bilateral Breath Sounds Implantable Cardiac Device Does patient have a Pacemaker or an ICD?: No Airway Exam Known Difficult Airway: No Mallampati Class: 2 Mouth Opening: Normal (> 3cm) Thyromental Distance: Greater than 3 cm Neck Range of Motion: Full ROM Neck Circumference: Normal Teeth Condition: Normal Dentition ASA Classification ASA Score: ASA 3 Emergency Case?: No NPO Status NPO Status: NPO Clears >2 hours, Solids >8 hours Anesthesia Plan Resuscitation Status: Full Code Anesthesia Technique: MAC Anesthesia Airway Planned: Natural Airway Monitors Used: Standard Monitors Preoperative Comments:: 68 yo female for cataract removal. sig PMHx: hypothyroid (levothyroxine), HTN (losartan, atenolol), DM1, breat CA (chemo), migraines, never smoker. Previous Anes: - ORIF wrist LMA 4.
[2023-03-01 11:00] VITALS: BP 140/77; PULSE 65; RESP 16; TEMP 36.5; O2SAT 97
[2023-03-01] MEDS: Tropicam./Phenyleph. (1/2.5%) 5 ML BTL OD ×3 (11:09→11:20)
[2023-03-01 11:29] VITALS: BMI 23.5
[2023-03-01] MEDS: Duovisc Viscoelastic System EACH 1 EACH (11:40)
[2023-03-01] MEDS: Lidocaine 1% Pres-Free 5 ML VIAL (11:40)
[2023-03-01] MEDS: Balanced Salt Soln.-PLUS 500 ML BAG (11:40)
[2023-03-01] MEDS: Tetracaine 0.5% 4 ML BTL OD (11:40)
[2023-03-01] MEDS: Phenylephrine/Lidocaine (15/10) MG/ML 1 ML VIAL (11:41)
[2023-03-01] MEDS: Povidone-Iodine Ophth 30 ML BTL (11:41)
[2023-03-01 12:05] VITALS: BP 124/77; PULSE 66; RESP 16; TEMP 36.1; O2SAT 99
--- NOTE | 2023-03-01 12:06 | PDOC.DSDIS_ITS ---
Date of service: 03/01/23 Time of Service: 12:06 Discharge Plan Disposition Patient Disposition: Home Discharge Details Attending Provider: Ezequiel Giraldo Primary Care Provider: Mely Solano Home Meds and New Rx's Prescriptions: No Action ascorbate calcium (vitamin C) 500 mg tablet 1 g PO DAILY insulin glargine [Lantus Solostar U-100 Insulin] 100 unit/mL (3 mL) insulin pen 19 unit subcut QAM (DME) Dexcom G6 Sensor Device See Rx Instructions .ROUTE .MEDSUPPLY Qty: 3 Rx Instructions: As directed (DME) Dexcom G6 Account Services Coordinator Misc See Rx Instructions .ROUTE .MEDSUPPLY Qty: 1 Rx Instructions: As directed (DME) Dexcom G6 Transmitter Device See Rx Instructions .ROUTE .MEDSUPPLY Qty: 1 Rx Instructions: As directed (DME) pen needle, diabetic [BD Ultra-Fine Short Pen Needle] 31 gauge x 5/16 needle See Rx Instructions .ROUTE .MEDSUPPLY Qty: 1200 Rx Instructions: As directed ICaps AREDS 7,160-113-100 [id number]-[id number] tablet,delayed release (DR/EC) 1 tab PO BID levothyroxine 175 mcg tablet 175 mcg PO 6XW atorvastatin 40 mg tablet 40 mg PO DAILY Qty: 90 3RF metformin 500 mg tablet 500 mg PO BID insulin lispro [Humalog KwikPen Insulin] 100 unit/mL insulin pen See Rx Instructions subcut tid with meals prn Rx Instructions: 1-15 units subcut tid with meals prn; multivitamin 1 EACH tablet 1 ea PO DAILY sulfasalazine 500 MG tablet 2,000 mg PO BID Patient Comments: 8 tabs daily- 12/27/13 CB Rx Instructions: [facility] calcium carbonate-vitamin D3 [Calcium 600 + D(3)] 1 EACH tablet 2 ea PO DAILY chromium picolinate 200 MCG capsule 200 mcg PO DAILY alendronate 70 mg tablet 70 mg PO QWEEK Qty: 13 3RF estradiol [Estrace] 0.01 % (0.1 mg/gram) cream See Rx Instructions VG .COMPLEX Qty: 42.5 4RF Rx Instructions: 1-2 grams vaginally three times weekly at bedtime.; atenolol 25 mg tablet 25 mg PO HS losartan 25 mg tablet 25 mg PO HS acetaminophen 500 mg capsule 1,000 mg PO Q8H PRN PRNQty: 30 0RF Discharge Instructions Stand Alone Forms: Post-op Topical Cataract, Devi Jeff (DSU) Discharge Orders Discharge Orders: Discharge Order (Routine); Ordered 03/01/23 Ordered By: Ezequiel Giraldo DS: Diagnosis Discharge Diagnosis (1) Nuclear age-related cataract, right eye: Status: Resolved
--- NOTE | 2023-03-01 12:08 | W.PM.OP ---
Date of service: 03/01/23 Time of Service: 12:08 Operative Note Operative Note DATE OF PROCEDURE: 03/01/23 PRE-OP DIAGNOSIS: Dense nuclear cataract, right eye Status post pars plana vitrectomy, right eye POST-OP DIAGNOSIS: same PROCEDURE: Cataract extraction using phacoemulsification with intraocular lens implant, right eye SURGEON: Ezequiel Giraldo ANESTHESIA TYPE: Local By Surgeon and MAC Refer to Anesthesia Record ESTIMATED BLOOD LOSS: 0 PATHOLOGY: none sent COMPLICATIONS: None Patient was transported to: same day Patient's condition: stable Implants: Jayme & Jayme Sensar [id number] Indications: Progressive visual loss due to cataract, right eye Procedure Description: CATARACT SURGERY OPERATIVE REPORT PREOPERATIVE DIAGNOSIS: 1. Nuclear cataract, right eye 2. Status post pars plana vitrectomy, right eye POSTOPERATIVE DIAGNOSIS: Same OPERATION: 1. Cataract extraction using phacoemulsification with posterior chamber intraocular lens implant, right eye. IOL: IOL Bit Tripoler/Model: Jayme & Jayme Sensar AR40e IOL Power: + 22.0 diopters IOL Serial Number: [id number] Optic Diameter: 6.0mm Haptic/Overall Diameter: 13.0mm PHACO INFO: Nam FanGager (MyBrandz)urion Vision System with OZil and Active Fluidics Cumulative Dispersed Energy (CDE): 9.82 seconds SURGEON: Ezequiel Giraldo MD, ILYA ANESTHESIA: Monitored Anesthesia Care (MAC), with local sub-tenon's anesthetic infiltration COMPLICATIONS: None SPECIMENS: None INDICATIONS FOR PROCEDURE: Patient is a 68-year-old lady who has history of epiretinal membrane in the right eye who has undergone pars plana vitrectomy and membrane peeling in July 2022. She has now developed a dense nuclear cataract in the right eye. The option of cataract surgery was offered to the patient and she felt she was symptomatic that she wished to proceed. PROCEDURE: The correct surgical eye was identified and marked as the right eye and the pupil was dilated in the preoperative area using mydriatics and cycloplegics. The dilated pupil size was 5.5 mm. The patient elected to proceed without oral sedation. The patient was brought to the operating room where cardiopulmonary monitoring was instituted and surgical time-out was performed, confirming the correct operative eye and IOL power. Topical anesthesia was administered and ophthalmic povidone-iodine 5% was instilled into the conjunctival fornices. Lidocaine gel was applied to the cornea and the aniket-ocular area was prepped with Betadine 10% solution and draped in the usual sterile fashion for intraocular surgery, including an aperture drape. A Tegaderm transparent film dressing was cut in half and used to cover the lashes and lid margins. Care was taken to sequester the lashes and lid margins under the Tegaderm dressing. A lid speculum was placed between the lids of the operative eye and the Nam LuxOR Revalia operating microscope was maneuvered into position. Kathy scissors were then used to make a conjunctival buttonhole approximately 6mm posterior to the limbus in the inferonasal quadrant. Blunt dissection was carried out to expose bare sclera, and a blunt-tipped sub-tenon?s anesthesia cannula was introduced and passed posteriorly along the globe where non-preserved plain lidocaine was injected into posterior sub-Tenon?s space. A sideport knife was used to make a paracentesis port inferotemporally. Intraocular phenylephrine/lidocaine was injected into the anterior chamber. The anterior chamber was filled with viscoelastic. A keratome knife was used to construct a 2-plane near-clear corneal tunnel extending 2.0mm into clear cornea superiortemporally. A flap was raised on the anterior capsule and capsulorhexis forceps were used to complete a continuous curvilinear capsulorhexis of 5.5 mm. Balanced salt solution was then used to perform cortical cleaving hydrodissection and nuclear hydrodelineation until the lens could be freely rotated within the capsular bag. The lens nucleus was then disassembled and removed within the capsular bag and iris plane using phacoemulsification. Residual cortical material was removed using the I/A handpiece. The posterior capsule was carefully polished to remove as much residual lens epithelial cells as safely possible. The capsular bag was then inflated and the anterior chamber deepened with viscoelastic. The lens implant described above was inserted into the capsular bag using the Jayme and Me[place] injector. A Kuglen hook was used to dial the IOL into position. Residual viscoelastic was then removed first from posterior to the IOL, then from the anterior chamber using the I/A handpiece. The lens implant was noted to center nicely within the capsular bag. The incisions were stromally hydrated, and the anterior chamber was reformed using BSS. Then 0.5cc of moxifloxacin 1.0mg/ml were injected into the capsular bag and anterior chamber. The incisions were checked with a Weck spear and found to be secure. Several drops of ophthalmic povidone-iodine 5% were then applied to the eye followed by two drops of Imprimis combination prednisolone/moxifloxacin/nepafenac solution. The drapes were removed and a clear plastic protective eye shield was placed over the eye. The patient was then returned to Same Day Surgery in stable condition.
--- NOTE | 2023-03-01 12:33 | W.ANESPOSTOP ---
Postoperative Evaluation Date, Time and Location Date Performed: 03/01/23 Time Performed: 12:33 Patient Location: Day Surgery Unit Vital Signs Most Recent Imported Vital Signs: Most Recent Vital Signs Temp Pulse Resp BP Pulse Ox 36.1 C L 66 16 124/77 99 03/01/23 12:05 03/01/23 12:05 03/01/23 12:05 03/01/23 12:05 03/01/23 12:05 Pain Score Most Recent Pain Score: Most Recent Pain Score Pain Level 0 03/01/23 12:05 Assessment Mental Status: Awake (Alert & Oriented to Patient Baseline) Airway and Respiratory Function: Patent airway with normal (patient baseline) respiratory exam Cardiovascular Function: Hemodynamically Stable Hydration Status: Adequately Hydrated Nausea & Vomiting: No Nausea or Vomiting Pain: Pt. Denies Any Pain Peripheral Nerve Block: Patient did not receive a nerve block
== END 2023-03-01 13:00 | disposition home or self-care (01) ==
LOC: SUR 10:35
PROVIDERS: PCP Family Medicine; Visit Provider Ophthalmology
PROC: (CPT 66984; principal; 2023-03-01 13:30)
DX: H25.11 Age-related nuclear cataract, right eye (principal); E11.9 Type 2 diabetes mellitus without complications; I10 Essential (primary) hypertension
CPT/HCPCS: 66984; V2632

== ENCOUNTER 2023-05-05 03:20 | Outpatient (CLI) | payer MEDICARE, SELFPAY ==
--- NOTE | 2023-05-05 10:55 | DI.US_ITS ---
APPROVED REPORT EXAM: Comprehensive 2D, Doppler, and color-flow Echocardiogram Patient Location: Out-Patient Leather Scraper: Jose Ramon Odonnell RDMS, RVT Indications: f/u chemo; heart murmur, hx lobular breast cancer Other Information Study Quality: Adequate Conclusion Normal left ventricular wall thickness and chamber size. Ejection fraction is 62%. Wall motion is n ormal Normal right ventricular size and systolic function Both atria are normal in size There is no structural or hemodynamically significant valvular disease Estimated right ventricular systolic pressure is 27 mmHg Wall motion Left Ventricle The left ventricle is normal size. The left ventricular systolic function is normal. The left ventric ular ejection fraction is within the normal range. There is normal left ventricular wall thickness. T here is normal LV segmental wall motion. There is no ventricular septal defect visualized. LVEF is 62 %. Right Ventricle The right ventricle is normal size. Right ventricular systolic function is grossly normal. Atria The left atrium size is normal. The right atrium size is normal. The interatrial septum is intact wit h no evidence for an atrial septal defect. Aortic Valve The aortic valve is normal in structure. Aortic valve is trileaflet. There is no aortic valvular sten osis. No aortic regurgitation is present. Mitral Valve The mitral valve is normal in structure. No evidence of mitral valve stenosis. Trace to mild mitral r egurgitation. Tricuspid Valve The tricuspid valve is normal in structure. There is no tricuspid valve stenosis. Mild tricuspid reg urgitation. The RVSP is 26.9 mmHg. Pulmonic Valve The pulmonary valve is normal in structure. There is no pulmonic valvular stenosis. Mild pulmonic reg urgitation. Great Vessels The aortic root is normal in size. The ascending aorta is normal in size. Aortic arch is normal in ca liber. IVC is normal in size and collapses >50% with inspiration. Pericardium There is no pericardial effusion. 2D Dimensions IVSD d PLAX 0.70 cm F: 0.6-1.0 LV Vol A2C d MOD 62.7 mL LVPW d PLAX 0.69 cm F: 0.6 - 1.0 LV Vol A4C d MOD 94.5 mL LVID d PLAX 4.37 cm F: 3.8 - 5.2 LA vol/ BSA A4C s A-L 21.0 mL/m2 LVDs 2.85 cm F: 2.2 - 3.5 LA Area A4C s MOD 12.74 cm2 Ao Root d 2.83 cm F: 2.7 - 3.3 LV EF A4C MOD 61.2 % Ao Asc Diam d 3.15 cm F: 2.3 - 3.1 LV EF A2C MOD 62.6 % LV EF Teichholz 64.1 % LV EF Biplane MOD 62.9 % LVEF (Shannon's) 62.87 % F: 54 - 74 SV 49.05 mL LV Volume 60.81 mL F: 46 - 106 SV Index 27.41 mL/m2 LV Volume Index 33.97 mL/m2 F: 29 - 61 LV Vol Biplane MOD 78.0 mL FS 34.65 % M-Mode TAPSE 1.55 cm (M/F) >1.7 LV Diastology MV E' medial 0.173 (>0.07 m/s) E/A Ratio 1.0 LV E/e MED 4.05 (<14) MV E Vmax 0.71 (0.4-1.3 m/s) MV E' lateral 0.090 (>0.1 m/s) MV A Vmax 0.70 (0.4-1.3 m/s) LV E/e LAT 7.85 (<14) MV E/A Ratio 0.96 MV E/E' medial 4.08 MV E/E' lateral 7.87 Aortic Valve LVOT Area 2.96 cm2 AoV Area Vmax 2.64 cm2 LVOT Vmax 0.94 m/s AoV Area/ BSA (Vmax) 1.47 cm2/m2 LVOT Mean Norman. 0.57 m/s MIGUE Mean Norman. 2.23 cm2 LVOT Peak Grad 3.5 mmHg MIGUE Mean Norman. Index 1.25 cm2/m2 LVOT Mean Grad 1.5 mmHg LVOT VTI 0.211 m LVOT Diam s 1.90 cm AoV Vmax 1.05 m/s Velocity Ratio 0.90 AoV Mean Norman. 0.75 m/s AoV Peak Grad 4.4 mmHg LVOT SV 62.50 mL AoV Mean Grad 2.5 mmHg AoV VTI 0.255 m AoV Area VTI 2.45 cm2 AoV Area/ BSA (VTI) 1.37 cm/m2 Mitral Valve MV DT 205 (160-240 msec) MV PHT 59 msec MV Area PHT 3.70 cm2 MV VTI 0.241 m MV Area VTI 2.59 (4.0-6.0 cm2) Pulmonary Valve PV Vmax 0.67 (0.5-1.5 m/s) RVOT Peak Gr. 0.85 mmHg PV Peak Grad 1.8 mmHg RVOT Mean Gr. 0.45 mmHg PV Mean Grad 1.1 mmHg RVOT VTI 0.122 m PV VTI 0.147 m RVOT Vmax 0.46 m/s Tricuspid Valve TR Peak Grad 23.9 mmHg TR Vmax 2.44 m/s RA Pressure 3.00 mmHg RVSP (TR) 26.9 mmHg
== END 2023-05-05 03:40 ==
PROVIDERS: PCP Family Medicine; Visit Provider Family Medicine
DX: R01.1 Cardiac murmur, unspecified (principal); Z85.3 Personal history of malignant neoplasm of breast
CPT/HCPCS: 93306

== ENCOUNTER 2023-05-13 01:29 | Outpatient (CLI) | payer MEDICARE, SELFPAY ==
[2023-05-13 13:11] LABS: Anion Gap 8.3 mmol/L (3-11); BUN 12 mg/dL (7-18); CO2 28.7 mmol/L (21.0-32.0); CREATININE 0.7 mg/dL (0.55-1.02); Calcium 8.8 mg/dL (8.5-10.1); Chloride 108 mmol/L (98-107); Estimated GFR 94.73 (mL/min/1.73m2); Glucose 105 mg/dL (74-106); Potassium 3.7 mmol/L (3.5-5.1); Sodium 145 mmol/L (136-145)
== END 2023-05-13 01:30 | disposition home or self-care (01) ==
LOC: LBO 01:30
PROVIDERS: PCP Family Medicine; Visit Provider Family Medicine
DX: I10 Essential (primary) hypertension (principal)
CPT/HCPCS: 36415; 80048

== ENCOUNTER 2024-03-31 10:35 | Outpatient (CLI) | payer MEDICARE, SELFPAY ==
[2024-03-31 12:12] LABS: Abs Immature Grans 0.01 10^3/uL (0.0-0.06); Absolute Basophil Count 0.03 10^3/uL (0.0-0.2); Absolute Lymphocyte Count 1.02 10^3/uL (1.2-3.4); Absolute Monocyte Count 0.37 10^3/uL (0.1-0.8); Absolute Neutrophil Count 2.86 10^3/uL (1.2-6.7); Basophils % 0.7 %; Eosinophils % 2.3 %; HCT 42.2 % (36.0-46.0); HGB 13.7 g/dL (11.2-15.7); Immature Grans % 0.2 %; Lymphocytes % 23.2 %; MCHC 32.5 % (32.0-36.0); MCV 96 fL (80-95); MPV 10.3 fL (8.0-11.0); Monocytes % 8.4 %; Neutrophils % 65.2 %; Platelet Count 161 10^3/uL (130-400); RBC 4.42 10^6/uL (3.93-5.22); RDW 12.6 % (11.7-14.6); RDW-SD 44.9 fL; WBC 4.39 10^3/uL (4.4-10.8)
[2024-03-31 12:35] LABS: ALT 29 U/L (14-59); AST 23 U/L (15-37); Alkaline Phosphatase 57 U/L (46-116); Anion Gap 10.4 mmol/L (3-11); BUN 16 mg/dL (7-18); Bilirubin, Total 0.5 mg/dL (0.2-1.0); CO2 26.6 mmol/L (21.0-32.0); Calcium 9.2 mg/dL (8.5-10.1); Chloride 107 mmol/L (98-107); Estimated GFR 61.36 (mL/min/1.73m2); Glucose 188 mg/dL (74-106); Potassium 3.9 mmol/L (3.5-5.1); Sodium 144 mmol/L (136-145)
== END 2024-03-31 10:36 | disposition home or self-care (01) ==
LOC: LOS 10:36
PROVIDERS: PCP Family Medicine; Referring Provider Family Medicine; Visit Provider Family Medicine
DX: K51.90 Ulcerative colitis, unspecified, without complications (principal); Z00.00 Encounter for general adult medical examination without abnormal findings
CPT/HCPCS: 36415; 80053; 85025

== ENCOUNTER → 2024-04-03 09:28 | Outpatient (CLI) | payer MEDICARE, SELFPAY ==
--- NOTE | 2024-04-03 09:15 | DI.RAD_ITS ---
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 TECHNIQUE: 2D digital imaging was performed of the right scapula. Four images were obtained. AP an d Y views were obtained. COMPARISON: No priors for comparison. FINDINGS: BONES: No acute fracture is present. No bony destructive lesion is seen. JOINTS: No dislocation present. There are mild degenerative changes seen at the acromioclavicular dayna nt. SOFT TISSUE: Normal. IMPRESSION: Mild degenerative changes seen at the acromioclavicular joint. DATA REPOSITORY: RADIATION DOSE DELIVERED:
== END ==
PROVIDERS: PCP Family Medicine; Visit Provider Family Medicine
DX: M25.511 Pain in right shoulder (principal); M19.011 Primary osteoarthritis, right shoulder; G56.81 Other specified mononeuropathies of right upper limb
CPT/HCPCS: 73010

== ENCOUNTER 2024-08-16 02:29 | Outpatient (CLI) | payer MEDICARE, SELFPAY ==
--- NOTE | 2024-08-16 07:00 | DI.RAD_ITS ---
Exam(s) XR FOOT LT COMPLETE EXAM: XR FOOT LT COMPLETE CLINICAL HISTORY: Left foot pain,m79.672. TECHNIQUE: 2D digital imaging was performed. Three views. COMPARISON: No exams were available for comparison FINDINGS: BONES: No acute fracture is present. No bony destructive lesion is seen. Small heel spurs. JOINTS: No dislocation present. Mild degenerative changes at the tarsal metatarsal joints. Minimal degenerative changes elsewhere. SOFT TISSUE: Normal. IMPRESSION: Mild degenerative changes and small heel spurs. nremarkable radiographs of the left foot. DATA REPOSITORY: RADIATION DOSE DELIVERED:
== END 2024-08-16 02:49 ==
LOC: DI 02:29
PROVIDERS: PCP Family Medicine; Visit Provider Podiatrist
DX: M19.072 Primary osteoarthritis, left ankle and foot (principal)
CPT/HCPCS: 20550; 64455; 73630

== ENCOUNTER → 2024-09-21 10:43 | Outpatient (BNVA) | payer MEDICARE, SELFPAY | PROVIDERS: PCP Family Medicine; Referring Provider Family Medicine; Visit Provider Podiatrist | DX: M72.2 Plantar fascial fibromatosis (principal); M67.02 Short Achilles tendon (acquired), left ankle; M79.672 Pain in left foot | CPT/HCPCS: 99213 ==

== ENCOUNTER 2024-10-06 12:47 | Outpatient (REF) | payer MEDICARE, SELFPAY ==
[2024-10-06 21:25] LABS: Bilirubin Negative (Negative); Blood Small (Negative); Clarity Clear (Clear); Glucose Negative (Negative); Ketones Negative (Negative); Leukocyte Esterase Small (Negative); Nitrite Negative (Negative); Urobilinogen 0.2 mg/dL (Up to 0.2)
[2024-10-06 21:32] LABS: Bacteria Few HPF (Negative); C & S Indicated? C&S Done As Ordered; Casts Negative LPF (Negative); Crystals Negative HPF (Negative); Epithelial Cells Few HPF (Negative); Mucus Negative (Negative); WBC >50 HPF (0-5)
== END 2024-10-06 12:48 | disposition home or self-care (01) ==
LOC: LBN 12:47
PROVIDERS: PCP Family Medicine; Visit Provider Family Medicine
DX: R30.0 Dysuria (principal); N39.0 Urinary tract infection, site not specified; B95.7 Other staphylococcus as the cause of diseases classified elsewhere
CPT/HCPCS: 87077; 81003; 81015; 87086

== ENCOUNTER 2025-04-03 08:33 | Outpatient (CLI) | payer MEDICARE, SELFPAY ==
[2025-04-03 12:44] LABS: Absolute Basophil Count 0.04 10^3/uL (0.0-0.2); Absolute Lymphocyte Count 1.03 10^3/uL (1.2-3.4); Absolute Monocyte Count 0.46 10^3/uL (0.1-0.8); Absolute Neutrophil Count 3.27 10^3/uL (1.2-6.7); Basophils % 0.8 %; Eosinophils % 5.9 %; HCT 40.5 % (36.0-46.0); HGB 13.2 g/dL (11.2-15.7); Lymphocytes % 20.2 %; MCH 30.5 pg (27.0-33.0); MCHC 32.6 % (32.0-36.0); MCV 94 fL (80-95); MPV 10.4 fL (8.0-11.0); Neutrophils % 64.1 %; Platelet Count 162 10^3/uL (130-400); RBC 4.33 10^6/uL (3.93-5.22); RDW 13.9 % (11.7-14.6); RDW-SD 47.6 fL
[2025-04-03 13:02] LABS: ALT 24 U/L (14-59); AST 19 U/L (15-37); Albumin 3.6 g/dL (3.4-5.0); Alkaline Phosphatase 68 U/L (46-116); Anion Gap 7.2 mmol/L (3-11); BUN 15 mg/dL (7-18); Bilirubin, Total 0.4 mg/dL (0.2-1.0); CO2 27.8 mmol/L (21.0-32.0); CREATININE 0.8 mg/dL (0.55-1.02); Calcium 9.2 mg/dL (8.5-10.1); Calculated LDL 47 mg/dL (<100); Chloride 105 mmol/L (98-107); Cholesterol 157 mg/dL (<200); Estimated GFR 79.71 (mL/min/1.73m2); Glucose 134 mg/dL (74-106); HDL Cholesterol 93 mg/dL (>or=50); Potassium 3.8 mmol/L (3.5-5.1); Sodium 140 mmol/L (136-145); TSH (W/Ref FT4) 0.73 uIU/mL (0.36-3.74); Total Protein 6.9 g/dL (6.4-8.2); Triglyceride 86 mg/dL (<150)
[2025-04-03 13:34] LABS: COMMENT (LAB VIEW ONLY) 54.64 mg/dL; Microalb ug/mg Crea 7.3 ug/mg Cr
== END 2025-04-03 08:34 | disposition home or self-care (01) ==
LOC: LOS 08:34
PROVIDERS: PCP Family Medicine; Referring Provider Family Medicine; Visit Provider Family Medicine
DX: E11.9 Type 2 diabetes mellitus without complications (principal); E03.9 Hypothyroidism, unspecified; K51.90 Ulcerative colitis, unspecified, without complications
CPT/HCPCS: 36415; 80053; 80061; 82043; 82570; 84443; 85025

== ENCOUNTER 2025-07-10 01:05 | Outpatient (CLI) | payer MEDICARE, SELFPAY ==
--- NOTE | 2025-07-10 | DI.CT_ITS ---
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 TECHNIQUE: Imaging protocol: Axial computed tomography images were obtained and coronal and sagittal reformatted images were created and reviewed. Computer aided detection (CAD) was utilized. CONTRAST MATERIAL: Noncontrast COMPARISON: CT ABD PELVIS WITH CONTRAST from 07/25/2013 CR XR PORTABLE CHEST AP POST LINE from 01/10/2021 FINDINGS: Pulmonary parenchyma: No consolidation. No suspicious nodules. Interstitial changes: None. Emphysema: None. Tracheobronchial tree: Area of scarring in the medial right middle lobe with mild bronchiectasis and a few areas of distal mucous plugging. Pleura: No effusion or pneumothorax. Heart: The heart is not dilated. The coronary arteries show minimal calcifications. Aorta: Thoracic aorta non-dilated. Minimal atherosclerotic changes. Lymph nodes: No enlarged lymph nodes. Bones: Scoliosis and mild degenerative changes are seen. No evidence of compression fracture. No lytic or blastic lesions. Upper abdomen: Unremarkable. Soft tissues: Bilateral mastectomy. IMPRESSION: Atelectasis or scarring in the medial right middle lobe with mild bronchiectasis and distal mucous plugging. No evidence of suspicious mass or acute infiltrate. RADIATION DOSE DELIVERED: 217.86mGy.cm Total DLP 217.86mGy.cm Total DLP DATA REPOSITORY: All CT scans at this facility are submitted to the National Radiology Data Registry (NRDR) Dose Index Registry (DIR) with the [employer] ([employer]). RADIATION OPTIMIZATION: All CT scans at this facility use at least one of these dose optimization techniques: automated exposure control; mA and/or kV adjustment per patient size (includes targeted exams where dose is matched to clinical indication); or iterative reconstruction.
== END 2025-07-10 01:25 ==
LOC: DI 01:05
PROVIDERS: PCP Family Medicine; Visit Provider Nurse Practitioner Adult Health
DX: J98.11 Atelectasis (principal); C50.411 Malignant neoplasm of upper-outer quadrant of right female breast; Z17.1 Estrogen receptor negative status [ER-]
CPT/HCPCS: 71250

== ENCOUNTER 2025-10-12 14:50 | Outpatient (CLI) | payer MEDICARE, SELFPAY ==
[2025-10-12 16:58] LABS: Vitamin D 25 Total 28 ng/mL (30-100)
== END 2025-10-12 14:51 | disposition home or self-care (01) ==
LOC: LOS 14:51
PROVIDERS: PCP Family Medicine; Visit Provider Family Medicine
DX: M81.0 Age-related osteoporosis without current pathological fracture (principal)
CPT/HCPCS: 36415; 82306

== ENCOUNTER → 2025-10-16 10:48 | Outpatient (BNVA) | payer MEDICARE, SELFPAY | PROVIDERS: PCP Family Medicine; Referring Provider Family Medicine; Visit Provider Student in an Organized Health Care Education/Training Program | DX: L72.3 Sebaceous cyst (principal) | CPT/HCPCS: 11401; 12031 ==